=== PATIENT | male | born 1935 | race Caucasian/White ===

== ENCOUNTER 2018-10-08 12:18 | Emergency (ER) | payer OTHER ==
--- OUTSIDE RECORDS SUMMARY | 2018-10-08 12:21 | XMS REPORT | Clinical Summary ---
:1935 Author Organization [facility] Address [address] [place] [address] Care Team Providers Name Role Phone Torey Martins MD Primary Care Provider Allergies Active Allergy Reactions Severity Noted Date Comments Etodolac Rash Low 02/19/2016 Medications Medication Sig Dispensed Refills Start Date End Date Status carvedilol (COREG) Take 12.5 mg by 0 Active 12.5 MG tablet mouth 2 (two) times daily with breakfast and dinner. losartan-hydrochloroth Take 1 tablet by 0 Active iazide (HYZAAR) mouth daily. 100-12.5 mg per tablet atorvastatin (LIPITOR) Take 40 mg by 0 Active 40 MG tablet mouth daily. amLODIPine (NORVASC) 5 Take 5 mg by mouth 0 Active MG tablet daily. apixaban (ELIQUIS) 2.5 Take 2.5 mg by 0 Active mg Tab tablet mouth 2 (two) times daily. cholecalciferol, Take 1,000 Units 0 Active vitamin D3, 1,000 unit by mouth as needed capsule Pt takes irreg jimbo . Active Problems Problem Noted Date AAA (abdominal aortic aneurysm) 03/11/2016 Abdominal aortic aneurysm 02/27/2016 Obesity (BMI 30-39.9) 02/27/2016 Carotid disease, bilateral 02/27/2016 HTN (hypertension) 02/27/2016 Atrial fibrillation 02/27/2016 Chronic renal failure 02/27/2016 Family History Medical History Relation Name Comments Cancer Brother bladder cancer Heart disease Father Diabetes Mother Heart disease Mother Relation Name Status Comments Brother Father Mother Social History Tobacco Use Types Packs/Day Years Used Date Former Smoker 1 30 Quit: 02/18/1986 Smokeless Tobacco: Former User Alcohol Use Drinks/Week oz/Week Comments Yes moderate Sex Assigned at Date Recorded Not on file Job Start Date Occupation Industry Not on file Not on file Not on file Travel History Travel Start Travel End No recent travel history available. Last Filed Vital Signs Not on file Plan of Treatment Health Maintenance Due Date Last Done Comments INFLUENZA VACCINE 07/05/2018 Implants Implanted Type Area Cloud Security Architect Device Shelf Expiration Model / Identifier Date Serial / Lot Customseal Kit [employer] 11/15/2016 [id number] / Implanted: Qty: 1 on 03/11/2016 / [id number] [employer] / [id number] [employer] 09/13/2018 [id number] / Implanted: Qty: 1 on 03/11/2016 / [id number] [employer] / [id number] [employer] 02/01/2018 [id number] / Implanted: Qty: 1 on 03/11/2016 / [id number] [employer] / [id number] [employer] 12/11/2018 [id number] / Implanted: Qty: 1 on 03/11/2016 / [id number] Results Not on fileafter 10/07/2017 Insurance Payer Benefit Plan / Group Subscriber ID Type Phone Address [employer] - MEDICARE UNITED MEDICARE HMO xxxxxxxxx [facility] Advance Directives For more information, please contact:[address] [phone] Code Status Date Activated Date Inactivated Comments Full Code 03/11/2016 10:15 AM 03/12/2016 1:08 PM This code status was determined by: Patient
[2018-10-08 14:28] LABS: Absolute Lymphocytes (CBC) 1.3 K/uL (0.7-4.9); Absolute Monocytes 0.8 K/uL (0.1-1.3); Absolute Neutrophil 6.3 K/uL (1.8-8.0); Basophils % 0.8 % (0-1.3); Eosinophils % 1.5 % (0-4.4); Hematocrit 47.5 % (39.6-49.0); Lymphocytes % 15.6 % (15.3-44.8); Monocytes % 9.5 % (3.3-12.3); Protime INR 1.24; RBC Red Blood Cell Count 5.06 M/uL (4.33-5.43)
[2018-10-08 14:38] LABS: ALT/SGPT 37 U/L (12-78); AST/SGOT 25 U/L (15-37); Albumin 3.9 g/dL (3.4-5.0); Alkaline Phosphatase 128 U/L (45-117); BUN Blood Urea Nitrogen 30 mg/dL (7-18); Bicarbonate 30 mmol/L (21-32); Bilirubin Direct 0.5 mg/dL (0-0.2); Bilirubin Total 2.6 mg/dL (0.2-1.0); Glucose Level 94 mg/dL (74-106); Magnesium 2.3 mg/dL (1.8-2.4); NT PRO-BNP 1025 pg/mL (<450); Potassium 4.1 mmol/L (3.5-5.1); Protein, Total 7.8 g/dL (6.4-8.2); Sodium Level 139 mmol/L (136-145); Troponin (Emerg Dept Use Only) < 0.02 ng/mL (0.0-0.045)
[2018-10-08 14:43] LABS: Urine Blood TRACE (NEG); Urine Glucose NEGATIVE (NEG); Urine Protein NEGATIVE (NEG)
--- NOTE | 2018-10-08 14:44 | RAD REPORT ---
EXAM DESCRIPTION: Natasha Single View10/08/2018 2:32 pm CLINICAL HISTORY: Chest pain COMPARISON: 2017 FINDINGS: 2 centimeter opacity lies superior to the left hilum. Right lung appears clear of acute infiltrate. Heart is mildly enlarged. Aorta is tortuous/ectatic IMPRESSION: 2 centimeter left lung opacity may represent a nodule or infiltrate. CT chest recommende d
--- NOTE | 2018-10-08 15:19 | RAD REPORT ---
EXAM DESCRIPTION: CT - Head Brain Wo Cont - 10/08/2018 3:10 pm CLINICAL HISTORY: CONFUSED Drowsiness COMPARISON: No comparisons TECHNIQUE: All CT scans are performed using dose optimization technique as appropriate and may inclu de automated exposure control or mA/KV adjustment according to patient size. FINDINGS: No intracranial hemorrhage, hydrocephalus or extra-axial fluid collection.Mild generalized brain atrophy is present with mild periventricular and deep white matter chronic microvascular ische geoffrey changes.No areas of brain edema or evidence of midline shift. Mild mucoperiosteal thickening affects the right maxillary antrum inferiorly. The paranasal sinuses a nd mastoids are clear otherwise. The calvarium is intact. IMPRESSION: No acute intracranial abnormality.
[2018-10-08] MEDS ORDERED: NA CHLORIDE 0.9% 1,000 ML ONE (15:35)
--- NOTE | 2018-10-08 15:48 | RAD REPORT ---
EXAM DESCRIPTION: CT - Chest Angio - 10/08/2018 3:39 pm CLINICAL HISTORY: Chest pain. visual distrubance COMPARISON: Chest Single View dated 10/08/2018; Chest Single View dated 04/24/2017 TECHNIQUE: CT angiogram of the pulmonary arteries was performed with MIP. All CT scans are performed using dose optimization technique as appropriate and may include automated exposure control or mA/KV adjustment according to patient size. FINDINGS: No evidence of pulmonary thromboembolism. No acute aortic finding demonstrated. Aortic atherosclerosis. Diffuse COPD is noted. 4.7 x 3.4 cm mass is present in these posterior aspect superior segment left l ower lobe. The mass appears to abut the descending thoracic aorta and contacts the pleura. The mass i s likely neoplastic in origin. No significant pericardial or pleural fluid. No concerning bony finding. IMPRESSION: No evidence of pulmonary thromboembolism. 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
--- NOTE | 2018-10-08 16:42 | RAD REPORT ---
EXAM DESCRIPTION: MRI - Brain W/Wo Cont - 10/08/2018 4:15 pm CLINICAL HISTORY: blurry vision CVA, TIA, drowsiness COMPARISON: Head Brain Wo Cont dated 10/08/2018 TECHNIQUE: Multi-sequence, multiplanar MR imaging of the brain was performed with contrast. FINDINGS: No intracranial hemorrhage, hydrocephalus, or extra-axial fluid collection.Mild generalize d brain atrophy is present with mild periventricular and deep white matter chronic microvascular isch emic changes. No edema or shift of midline structures. No intracranial mass. DWI is negative for acut e CVA. The midline structures are normally formed. Mastoid air cells and paranasal sinuses are clear. Post-contrast images show no abnormal enhancement to suggest tumor or infection. IMPRESSION: No acute or concerning intracranial abnormalities. No pathologic post-contrast enhancement suspected.
--- NOTE | 2018-10-08 17:00 | RAD REPORT ---
EXAM DESCRIPTION: US - CP - 10/08/2018 4:53 pm CLINICAL HISTORY: blurry vision CVA symptomology. Syncope. Headache. COMPARISON: Brain W/Wo Cont dated 10/08/2018 TECHNIQUE: Real-time sonographic evaluation of both carotid systems was performed. Doppler interroga tion was performed with waveform tracing bilaterally. FINDINGS: Normal high resistance waveforms are noted in both external carotid arteries. The common c arotid arteries and internal carotid arteries show normal low resistance waveforms. No significant plaque formation is seen. Peak systolic and end diastolic velocity values and the ICA/ CCA ratios are in the non-hemodynamically significant range. Antegrade flow seen in both vertebral arteries. IMPRESSION: No significant atherosclerotic changes noted. No evidence of a hemodynamically significant stenosis.
--- NOTE | 2018-10-08 18:18 | EDPHYS ---
Physician Documentation [facility] Name: Miguel Hogan Age: 83 yrs Sex: Male : 1935 Arrival Date: 10/08/2018 Time: 12:21 Bed 24 Private MD: Ralph Martins C ED Physician Dago Garcia HPI: 10/08 18:58 This 83 yrs old Male presents to ER via Ambulatory with complaints of kdr Dizziness, Blurred Vision. Historical: - Allergies: 12:34 Etodolac; hj 12:34 telbivudine; hj - Home Meds: 12:34 carvedilol 12.5 mg oral tab 1 tab 2 times per day [Active]; Norvasc 5 mg Oral tab 1 tab hj once daily [Active]; losartan-hydrochlorothiazide 50-12.5 mg oral tab 1 tab once daily [Active]; Eliquis 2.5 mg oral tab 1 tab 2 times per day [Active]; - PMHx: 12:34 Hyperlipidemia; Hypertension; skin cancer; hj - PSHx: 12:34 Knee surgery; Hernia repair; Carotid surgery; skin cancer removal from left cheek; hj cataract surgery; AAA repair; - Immunization history:: Adult Immunizations up to date. - Social history:: Smoking status: Patient/guardian denies using tobacco, Patient/guardian denies using alcohol. - Ebola Screening: : Patient negative for fever greater than or equal to 101.5 degrees Fahrenheit, and additional compatible Ebola Virus Disease symptoms Patient denies exposure to infectious person Patient denies travel to an Ebola-affected area in the 21 days before illness onset. Vital Signs: 12:34 BP 156 / 78; Pulse 69; Resp 18; Temp 98.0(O); Pulse Ox 99% on R/A; Weight 113.4 kg; hj Height 6 ft. 2 in. (187.96 cm); Pain 0/10; 13:35 BP 149 / 80; Pulse 66; Resp 16; Pulse Ox 99% on R/A; tw2 14:38 BP 147 / 87; Pulse 75; Resp 16; Pulse Ox 100% on R/A; tw2 15:00 BP 140 / 77; Pulse 61; Resp 17; Pulse Ox 99% on R/A; tw2 16:30 BP 167 / 80; Pulse 61; Resp 17; Pulse Ox 98% on R/A; tw2 17:21 BP 167 / 90; Pulse 70; Resp 16; Pulse Ox 100% on R/A; tw2 18:09 BP 154 / 97; Pulse 71; Resp 18; Pulse Ox 99% on R/A; tw2 12:34 Body Mass Index 32.10 (113.40 kg, 187.96 cm) hj MDM: 18:17 Patient medically screened. kdr 10/08 13:56 Order name: Basic Metabolic Panel; Complete Time: 14:56 iw 10/08 13:56 Order name: CBC with Diff; Complete Time: 14:56 iw 10/08 13:56 Order name: LFT's; Complete Time: 14:56 iw 10/08 13:56 Order name: Magnesium; Complete Time: 14:56 iw 10/08 13:56 Order name: NT PRO-BNP; Complete Time: 14:56 iw 10/08 13:56 Order name: PT-INR; Complete Time: 14:56 iw 10/08 13:56 Order name: Troponin (emerg Dept Use Only); Complete Time: 14:56 iw 10/08 13:56 Order name: XRAY Chest (1 view); Complete Time: 14:56 iw 10/08 14:29 Order name: Urine Dipstick--Ancillary (enter results); Complete Time: 14:56 ag 10/08 14:59 Order name: CT Head Brain wo Cont; Complete Time: 15:21 kdr 10/08 15:11 Order name: CT Chest Angio; Complete Time: 16:24 kdr 10/08 15:11 Order name: Carotid Artery Bilateral US; Complete Time: 17:18 kdr 10/08 16:04 Order name: Brain W/Wo Cont; Complete Time: 17:18 EDMS 10/08 12:36 Order name: EKG; Complete Time: 12:37 hj 10/08 13:56 Order name: Cardiac monitoring; Complete Time: 14:12 iw 10/08 13:56 Order name: IV Saline Lock; Complete Time: 14:12 iw 10/08 13:56 Order name: Labs collected and sent; Complete Time: 14:13 iw 10/08 13:56 Order name: O2 Per Protocol; Complete Time: 14:13 iw 10/08 13:56 Order name: O2 Sat Monitoring; Complete Time: 14:13 iw Administered Medications: 16:59 Drug: NS 0.9% 250 ml Route: IV; Rate: bolus; Site: left forearm; tw2 17:29 Follow up: Rate change bolus; rate change to bolus at this time to complete 1L NS prior tw2 to discharge per Dr. Garcia 18:32 Follow up: Response: No adverse reaction; IV Status: Completed infusion; IV Intake: tw2 1000ml Disposition: 10/08/18 18:17 Discharged to Home. Impression: Other visual disturbances, Other subjective visual disturbances, Subjective visual disturbances, Unspecified subjective visual disturbances. - Condition is Stable. - Discharge Instructions: Blurred Vision, Adult, Visual Disturbances. - Medication Reconciliation Form, Thank You Letter form. - Follow up: Ralph Martins MD; When: 9:00 AM on Thursday; Reason: If symptoms return, Further diagnostic work-up, Recheck today's complaints, Continuance of care, Re-evaluation by your physician. - Problem is new. - Symptoms are resolved. Signatures: Dispatcher [employer] [facility] Dago Garcia MD MD kdr Staci Perez RN RN Olvin Cloud, MEETA RN hj Laawnda Sequeira, MEETA RN tw2 Corrections: (The following items were deleted from the chart) 16:04 15:12 Brain With Cont+MRI.RAD.BRZ ordered. [facility] 18:33 18:17 10/08/2018 18:17 Discharged to Home. Impression: Other visual disturbances; Other tw2 subjective visual disturbances; Subjective visual disturbances; Unspecified subjective visual disturbances. Condition is Stable. Forms are Medication Reconciliation Form, Thank You Letter, Antibiotic Education, Prescription Opioid Use. Follow up: Ralph Martins; When: 9:00 AM on Thursday; Reason: If symptoms return, Further diagnostic work-up, Recheck today's complaints, Continuance of care, Re-evaluation by your physician. Problem is new. Symptoms are resolved. kdr
--- NOTE | 2018-10-08 18:18 | ER ---
Nurse's Notes [facility] Name: Miguel Hogan Age: 83 yrs Sex: Male : 1935 Arrival Date: 10/08/2018 Time: 12:21 Bed 24 Private MD: Ralph Martins C Diagnosis: Other visual disturbances;Other subjective visual disturbances;Subjective visual disturbances;Unspecified subjective visual disturbances Presentation: 10/08 12:30 Presenting complaint: Patient states: last 2-3 days, jeannie been dizzy and had blurry hj vision and able to lay down and margarita passes; denies N/V; denies falling; hx of a fib; denies chest pain; denies numbness or tingling;. Transition of care: patient was not received from another setting of care. Onset of symptoms was October 08, 2018. Risk Assessment: Do you want to hurt yourself or someone else? Patient reports no desire to harm self or others. Initial Sepsis Screen: Does the patient meet any 2 criteria? No. Patient's initial sepsis screen is negative. Does the patient have a suspected source of infection? No. Patient's initial sepsis screen is negative. Care prior to arrival: None. 12:30 Method Of Arrival: Ambulatory 12:30 Acuity: ROSE 3 hj Triage Assessment: 12:34 General: Appears in no apparent distress. uncomfortable, Behavior is calm, cooperative, hj appropriate for age. Pain: Denies pain. Historical: - Allergies: 12:34 Etodolac; hj 12:34 telbivudine; hj - Home Meds: 12:34 carvedilol 12.5 mg oral tab 1 tab 2 times per day [Active]; Norvasc 5 mg Oral tab 1 tab hj once daily [Active]; losartan-hydrochlorothiazide 50-12.5 mg oral tab 1 tab once daily [Active]; Eliquis 2.5 mg oral tab 1 tab 2 times per day [Active]; - PMHx: 12:34 Hyperlipidemia; Hypertension; skin cancer; hj - PSHx: 12:34 Knee surgery; Hernia repair; Carotid surgery; skin cancer removal from left cheek; hj cataract surgery; AAA repair; - Immunization history:: Adult Immunizations up to date. - Social history:: Smoking status: Patient/guardian denies using tobacco, Patient/guardian denies using alcohol. - Ebola Screening: : Patient negative for fever greater than or equal to 101.5 degrees Fahrenheit, and additional compatible Ebola Virus Disease symptoms Patient denies exposure to infectious person Patient denies travel to an Ebola-affected area in the 21 days before illness onset. Screenin:34 Abuse screen: Denies threats or abuse. Denies injuries from another. Nutritional hj screening: No deficits noted. Tuberculosis screening: No symptoms or risk factors identified. Fall Risk None identified. Assessment: 13:35 Reassessment: pt states he had carotid surgery to "clear out 98% blockage and i just tw2 want to make sure everything is ok, i just feel dizzy and like i have to strain to focus". General: Appears in no apparent distress. Behavior is calm, cooperative, appropriate for age. Pain: Denies pain. Neuro: Level of Consciousness is awake, alert, obeys commands, Oriented to person, place, time, situation. Neuro: Reports dizziness, Denies headache. Cardiovascular: Heart tones S1 S2 Capillary refill < 3 seconds Patient's skin is warm and dry. Respiratory: Airway is patent Respiratory effort is even, unlabored, Respiratory pattern is regular, symmetrical, Breath sounds are clear. GI: Abdomen is flat, round Bowel sounds present X 4 quads. Reports AAA that has a stent and it has been reinforced with a balloon. : No signs and/or symptoms were reported regarding the genitourinary system. EENT: No signs and/or symptoms were reported regarding the EENT system. Derm: No signs and/or symptoms reported regarding the dermatologic system. Musculoskeletal: Circulation, motion, and sensation intact. Range of motion: intact in all extremities. 14:38 Reassessment: Patient appears in no apparent distress at this time. No changes from tw2 previously documented assessment. Patient and/or family updated on plan of care and expected duration. Pain level reassessed. Patient is alert, oriented x 3, equal unlabored respirations, skin warm/dry/pink. provider at bedside at this time. 15:40 Reassessment: pt is in imaging at this time, not available for vs. tw2 16:30 Reassessment: Patient appears in no apparent distress at this time. No changes from tw2 previously documented assessment. Patient and/or family updated on plan of care and expected duration. Pain level reassessed. Patient is alert, oriented x 3, equal unlabored respirations, skin warm/dry/pink. 17:22 Reassessment: Patient appears in no apparent distress at this time. No changes from tw2 previously documented assessment. Patient and/or family updated on plan of care and expected duration. Pain level reassessed. Patient is alert, oriented x 3, equal unlabored respirations, skin warm/dry/pink. 18:09 Reassessment: Patient appears in no apparent distress at this time. No changes from tw2 previously documented assessment. Patient and/or family updated on plan of care and expected duration. Pain level reassessed. Patient is alert, oriented x 3, equal unlabored respirations, skin warm/dry/pink. 18:32 Reassessment: Patient appears in no apparent distress at this time. No changes from tw2 previously documented assessment. Patient and/or family updated on plan of care and expected duration. Pain level reassessed. Patient is alert, oriented x 3, equal unlabored respirations, skin warm/dry/pink. 18:33 Reassessment: Patient appears in no apparent distress at this time. No changes from tw2 previously documented assessment. Patient and/or family updated on plan of care and expected duration. Pain level reassessed. Patient is alert, oriented x 3, equal unlabored respirations, skin warm/dry/pink. Vital Signs: 12:34 BP 156 / 78; Pulse 69; Resp 18; Temp 98.0(O); Pulse Ox 99% on R/A; Weight 113.4 kg; hj Height 6 ft. 2 in. (187.96 cm); Pain 0/10; 13:35 BP 149 / 80; Pulse 66; Resp 16; Pulse Ox 99% on R/A; tw2 14:38 BP 147 / 87; Pulse 75; Resp 16; Pulse Ox 100% on R/A; tw2 15:00 BP 140 / 77; Pulse 61; Resp 17; Pulse Ox 99% on R/A; tw2 16:30 BP 167 / 80; Pulse 61; Resp 17; Pulse Ox 98% on R/A; tw2 17:21 BP 167 / 90; Pulse 70; Resp 16; Pulse Ox 100% on R/A; tw2 18:09 BP 154 / 97; Pulse 71; Resp 18; Pulse Ox 99% on R/A; tw2 12:34 Body Mass Index 32.10 (113.40 kg, 187.96 cm) hj ED Course: 12:21 Patient arrived in ED. ag5 12:21 Ralph Martins MD is Private Physician. ag5 12:32 Triage completed. hj 12:34 Arm band placed on right wrist. hj 12:34 Patient has correct armband on for positive identification. Placed in gown. Bed in low hj position. Call light in reach. Side rails up X 1. 13:18 Lawanda Sequeira RN is Primary Nurse. tw2 13:36 EKG done, by laboratory technology teacher. reviewed by Sae Shine NP. at1 14:12 Inserted saline lock: 20 gauge in left forearm, using aseptic technique. Blood tw2 collected. 14:26 X-ray completed. Portable x-ray completed in exam room. Patient tolerated procedure sw well. 14:32 XRAY Chest (1 view) In Process Unspecified. EDMS 14:34 Dago Garcia MD is Attending Physician. kdr 15:10 CT Head Brain wo Cont In Process Unspecified. EDMS 15:39 CT completed. Patient tolerated procedure well. Patient moved to CT via stretcher. sj Patient moved back from CT. 15:39 Patient moved to MRI. sj 15:39 CT Chest Angio In Process Unspecified. EDMS 16:16 MRI completed. Patient tolerated well. Patient taken to ultrasound. via stretcher. em2 16:16 Brain W/Wo Cont In Process Unspecified. EDMS 16:53 Carotid Artery Bilateral US In Process Unspecified. EDMS 18:09 Awaiting: completion of IV fluids prior to discharge. tw2 18:16 Ralph Martins MD is Referral Physician. kdr 18:32 No provider procedures requiring assistance completed. IV discontinued, intact, tw2 bleeding controlled, No redness/swelling at site. Pressure dressing applied. Administered Medications: 16:59 Drug: NS 0.9% 250 ml Route: IV; Rate: bolus; Site: left forearm; tw2 17:29 Follow up: Rate change bolus; rate change to bolus at this time to complete 1L NS prior tw2 to discharge per Dr. Garcia 18:32 Follow up: Response: No adverse reaction; IV Status: Completed infusion; IV Intake: tw2 1000ml Intake: 18:32 IV: 1000ml; Total: 1000ml. tw2 Outcome: 18:17 Discharge ordered by . kdr 18:33 Discharged to home ambulatory, with family. tw2 18:33 Condition: stable 18:33 Discharge instructions given to patient, family, Instructed on discharge instructions, follow up and referral plans. Demonstrated understanding of instructions, follow-up care. 18:33 Patient left the ED. tw2 Signatures: Dispatcher [employer] EDMS Dago Garcia MD MD kdr Jones, Angelica Amor, Dustin em2 Saige Maldonado, drag car racer EKG Tat1 Celsa Hankins Henry, RN RN Lawanda Tolentino RN RN tw2 Marcell Lagunas ag5 Corrections: (The following items were deleted from the chart) 12:36 12:34 Pulse 69bpm; Resp 18bpm; Pulse Ox 99% RA; Temp 98.0F Oral; 113.4 kg; Height 6 ft. hj 2 in.; BMI: 32.1; Pain 0/10; hj 12:37 12:30 Presenting complaint: Patient states: last 2-3 days, jeannie been dizzy and had hj blurry vision and able to lay down and margarita passes; denies N/V; denies falling; hx of a fib; denies chest pain; hj 12:37 12:34 Pulse 69bpm; Resp 18bpm; Pulse Ox 99% RA; Temp 98.0F Oral; 113.4 kg; Height 6 ft. hj 2 in.; BMI: 32.1; Pain 0/10; hj 13:38 13:24 Reassessment: pt states he was supposed to have a doppler on his carotic but he tw2 has been having a lot of stress and things to deal with and just hasnt gone tw2
[2018-10-08 19:26] VITALS: TEMP 98
[2018-10-08 19:38] VITALS: BP 154/97; O2SAT 99
--- NOTE | 2018-10-09 13:57 | EKG ---
Test Date: 2018-10-08 Test Time: 13:26:12 [employer] Building Materials Designer: MEL MEASUREMENT RESULTS: Intervals: Rate: 74 AR: QRSD: 146 QT: 432 QTc: 479 Lohman: P: AR: QRS: -70 T: 66 INTERPRETIVE STATEMENTS: Atrial fibrillation with a competing junctional pacemaker Right bundle branch block Left anterior fascicular block Bifascicular block Septal infarct, age undetermined Abnormal ECG Compared to ECG 04/24/2017 15:22:10 Myocardial infarct finding now present Ventricular premature complex(es) no longer present Bifascicular block still present Electronically Signed On 10-09-18 13:54:07 PROVINCE ARCHIVIST by Baldemar Kohli
== END 2018-10-08 18:33 | disposition home or self-care (01) ==
LOC: ER 12:18
DX: H53.19 Other subjective visual disturbances (principal); H53.9 Unspecified visual disturbance; I10 Essential (primary) hypertension; E78.5 Hyperlipidemia, unspecified; Z88.8 Allergy status to other drugs, medicaments and biological substances; Z85.828 Personal history of other malignant neoplasm of skin
CPT/HCPCS: 36415; 70450; 70553; 71045; 71275; 80048; 80076; 81003; 83735; 83880; 84484; 85025; 85610; 93005; 93880; 96360; 96361; 99284; A9577; J7030; Q9967; 96365; 96366

== ENCOUNTER 2021-12-30 20:02 | Emergency (ER) | payer OTHER ==
--- OUTSIDE RECORDS SUMMARY | 2021-12-30 20:09 | XMS REPORT | Clinical Summary ---
:1935 Author Organization [facility] Address [address] [place] [address] Care Team Providers Name Role Phone Leonard Giraldo MD Primary Care Provider Torey Martins MD Unavailable Esdras Martins MD Unavailable MD Enzo Unavailable MD Emil Unavailable Allergies Active Allergy Reactions Severity Noted Date Comments Etodolac Rash Low 06/16/2016 Medications Medication Sig Dispensed Refills Start End Status Date Date atorvastatin (LIPITOR) Take 40 mg by 0 Active 40 mg tablet mouth at bedtime. apixaban (ELIQUIS) 2.5 Take 2.5 mg 0 Active mg tablet by mouth twice daily. finasteride (PROSCAR) Take 5 mg by 0 Active 5 mg tablet mouth daily. fluticasone propionate Inhale 2 0 Active (FLONASE) 50 mcg/spray sprays into nasal spray each nostril daily. Trelegy Ellipta 1 PUFF BY 0 Acti ve 100-62.5-25 mcg dsdv MOUTH DAILY, 0 RINSE MOUTH WITH WATER AFTER USE ALPRAZolam (XANAX) 1 Take 1 tablet 0 Active mg tablet by mouth 1 nightly as needed for sleep. furosemide (LASIX) 20 Take 1 tablet 0 Active mg tablet by mouth 1 every morning. mupirocin (BACTROBAN) Apply 22 g 1 Active 2% topically to 1 ointmentIndications: affected Basal cell carcinoma - area(s) twice primary daily. losartan-hydrochloroth Take 1 tablet 0 Active iazide (HYZAAR) 100-25 by mouth mg per daily. tabletIndications: hypertension carvedilol (COREG) 12.5 mg twice 0 Active 12.5 mg tablet daily. 1 mupirocin (BACTROBAN) Apply 22 g 1 Active 2% topically to 1 ointmentIndications: affected Squamous cell area(s) twice carcinoma of scalp daily. methylPREDNISolone Take as 21 tablet 0 A ctive (Medrol, Bob,) 4 mg directed 2 tabletIndications: (Directions Squamous cell on blister carcinoma, NOS of pack) lower lobe, lung <Left> benzonatate (TESSALON) Take 1 0 Active 100 mg capsule capsule by 2 mouth 4 (four) times a day as needed for cough. losartan-hydrochloroth Take 1 tablet 0 04/05 Discontinued iazide (HYZAAR) by mouth 021 (Not 100-12.5 mg per tablet daily. Applicable) carvedilol (COREG) 25 Take 1 tablet 0 09/04 5 Discontinued mg tablet by mouth 0 021 (Not twice daily. Applica ble) losartan-hydrochloroth Take 1 tablet 0 Discontinued iazide (HYZAAR) 100-25 by mouth 021 (Stop Taking at mg per tablet daily. Discha rge) azithromycin TAKE 2 0 Discont inued (ZITHROMAX) 250 mg TABLETS BY 1 021 (Not tablet MOUTH TODAY, Applica ble) THEN TAKE 1 TABLET DAILY FOR 4 DAYS azithromycin 0 Discont inued (ZITHROMAX) 250 mg 1 021 ( Not tablet Applicable ) cephalexin (KEFLEX) Take 1 20 capsule 1 500 mg capsule (500 1 022 capsuleIndications: mg) by mouth Squamous cell twice daily carcinoma of scalp for 10 days. Active Problems Problem Noted Date Pleural effusion 12/23/2021 Last Assessment & Plan: Right pleural effusion has resolved and it was most likely caused by fluid overload. No need for intervention at this time. Chronic obstructive pulmonary disease 03/02/2021 Last Assessment & Plan: No clinical evidence of exacerbation. Co ntinue with Trelegy Ellipta one puff daily. Diarrhea 03/01/2021 Fatigue 03/01/2021 Disorder of fluid AND/OR electrolyte 03/01/2021 Hyposmolality and/or hyponatremia 03/01/2021 Squamous cell carcinoma 12/15/2019 Hypertension 12/15/2019 Disorder of carotid artery 11/09/2019 Abdominal aortic aneurysm 11/09/2019 Last Assessment & Plan: Patient has history of patent endograft with aneurysm measuring 6.3 cm with no endoleak as per most recent report 11/02/2018. 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 Recent PET-CT dated suggest en largement of the left lung lesion. Permanent atrial fibrillation 11/10/2018 Overview: 07/05 Regulatory Import Last Assessment & Plan: Patient has received local cardiology ev aluation for history of atrial fibrillation, abdominal aortic aneurysm. Dr. Benson did not feel the patient needed additional cardiac testing Multiple renal cysts 10/27/2018 Last Assessment & Plan: The patient has been on surveillance sin ce 2014 for a 1.4 cm right renal mass. He is under the care of his local physician. Encounters Date Type Specialty Care Team Description 12/30/2021 Nurse Triage Sally Smith NP 12/30/2021 Telephone Sally Smith asking to spe ak to Monica, EMBEDDED SOFTWARE TEST ENGINEER provider; Short ness of Breath 12/24/2021 Orders Only Thoracic Medicine Yarelis Morataya ANP carcinoma of lower lobe of left bonnie ng (Primary Dx) 12/23/2021 Office Visit Pulmonology Granados, Pleural effusio n (Primary Dx); MD Jeffry Squamous cell c arcinoma, NOS of lower lobe, lung <Left>; Chronic obstruc tive pulmonary disease, not otherwise specified 12/23/2021 Hospital Encounter Cardiology Yarelis Morataya ANP carcinoma, NO S of lower lobe, dmitri g <Left> 12/23/2021 Hospital Encounter Lab Mackenney, Pleural e ffusion DOTTIE Aguilar 12/23/2021 Ancillary Procedure Radiology Toddy, Pleural effusion DOTTIE Aguilar 12/23/2021 Travel 12/11/2021 Telephone Thoracic Medicine Nicolette Morataya ANP 12/11/2021 Orders Only Pulmonology Mackenney, Pleural effusio n DOTTIE Aguilar (Primary Dx) 12/10/2021 Office Visit Thoracic Medicine Yarelis Gay MD carcinoma, NOS of lower lobe, dmitri g <Left> 12/10/2021 Orders Only Radiology Rosita Milian MD 12/10/2021 Travel 12/09/2021 Ancillary Procedure Radiology Yarelis Gay MD carcinoma, NOS of lower lobe, dmitri g <Left> 12/09/2021 Travel 11/19/2021 Orders Only Thoracic Medicine Yarelis Guzman NP carcinoma, NOS of lower lobe, dmitri g <Left> (Primary Dx) 11/14/2021 Infusion Infusion Services Yarelis Morataya ANP carcinoma of lower lobe of left bonnie ng (Primary Dx) 11/14/2021 Travel 11/14/2021 Orders Only Thoracic Medicine Shayy Levin MD 11/14/2021 Orders Only Thoracic Medicine Nicolette Morataya ANP 11/13/2021 Telemedicine Thoracic Medicine Yarelis Gay MD carcinoma, NOS of lower lobe, dmitri g <Left> 11/13/2021 Orders Only Thoracic Medicine Vijaya Maxwell, Squamous cell PharmD 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 (Primary Dx) 11/13/2021 Orders Only Thoracic Medicine Yarelis Morataya ANP carcinoma of lower lobe of left bonnie ng (Primary Dx) 11/13/2021 Travel 10/17/2021 Infusion Infusion Services Yarelis Gay MD 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 (Primary Dx) 10/17/2021 Telemedicine Thoracic Medicine Yarelis Gay MD carcinoma, NOS of Rafia, lower lobe, dmitri g NicoletteHEMA farmer <Left> 10/17/2021 Travel 10/17/2021 Orders Only Thoracic Medicine Yarelis Morataya ANP carcinoma of lower lobe of left bonnie ng (Primary Dx) 10/16/2021 Orders Only Thoracic Medicine Salazar Gay MD 10/15/2021 Hospital Encounter Lab Salazar Gay MD 10/15/2021 Hospital Encounter Radiology Rafia, 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; HEMA Will Squamous cell carcinoma, NOS of lower lobe, lung <Left> 10/15/2021 Travel 09/30/2021 Office Visit Rakesh Stein Squamous cell c arcinoma of forehead (Primary Dx); MD Claudia Squamous cell c arcinoma of scalp; Basal cell carc inoma of anterior chest; Basal cell carc inoma of back; Squamous cell c arcinoma of skin of scalp and neck 09/30/2021 Travel 09/24/2021 Telephone Radha Foote, MEETA 09/23/2021 Orders Only Thoracic Medicine Yarelis Morataya ANP carcinoma of lower lobe of left bonnie ng (Primary Dx) 09/19/2021 Infusion Infusion Services Yarelis Gay MD 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 (Primary Dx) 09/19/2021 Travel 09/18/2021 Office Visit Thoracic Yarelis Robles MD carcinoma, NOS of lower lobe, dmitri g <Left> (Primary Dx) 09/18/2021 Hospital Encounter Lab Salazar Gay MD 09/18/2021 Travel 09/01/2021 Orders Only Yarelis Morales cell c arcinoma of skin of scalp and neck (Primary Dx); MD Claudia Squamous cell c arcinoma of forehead 08/26/2021 Telephone Dermatology Elvie Borja MD 08/22/2021 Infusion Infusion Services Squamous c ell 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 (Primary Dx) 08/22/2021 Travel 08/21/2021 Office Visit Thoracic Medicine Yarelis Gay MD carcinoma, NOS of lower lobe, dmitri g <Left> (Primary Dx) 08/21/2021 Office Visit Dermatology Enzo, Neoplasm of un certain behavior of skin (Primary Dx); MD Leonard Multiple actinic keratoses; Elza, Seborrheic allan tosis; MD Nahed Squamous cell c arcinoma, NOS of lower lobe, lung <Left> 08/21/2021 Orders Only Thoracic Medicine Alejandro Dillard, PharmD 08/21/2021 Orders Only Thoracic Medicine Nicolette Morataya, HEMA 08/21/2021 Orders Only Thoracic Medicine Annalise Paris, PharmD 08/21/2021 Travel 08/20/2021 Ancillary Procedure Radiology Squamous cell carcinoma, NOS of lower lobe, dmitri g <Left> 08/20/2021 Travel 07/25/2021 Infusion Infusion Services Squamous c ell carcinoma, NOS of lower lobe, lung <Left> (Primary Dx); Squamous cell c arcinoma of lower lobe of left lung 07/25/2021 Telephone Infusion Services Yun Steele, Follow-up (chemo RN call back) 07/25/2021 Travel 07/24/2021 Office Visit Thoracic Medicine aYrelis Gay MD carcinoma, NOS of lower lobe, dmitri g <Left> (Primary Dx) 07/24/2021 Hospital Encounter Lab Squamous cell carcinoma, NOS of lower lobe, dmitri g <Left> 07/24/2021 Orders Only Thoracic Medicine Vijaya Maxwell, PharmD 07/24/2021 Travel 06/26/2021 Infusion Infusion Services Yarelis Gay MD 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 (Primary Dx) 06/26/2021 Office Visit Thoracic Medicine Yarelis Gay MD 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 (Primary Dx) 06/26/2021 Travel 06/26/2021 Orders Only Thoracic Medicine Salazar Gay MD 06/25/2021 Ancillary Procedure Radiology Yarelis Morataya, HEMA carcinoma of lower lobe of left bonnie ng 06/25/2021 Travel 05/29/2021 Infusion Infusion Services Yarelis Gay MD 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 (Primary Dx) 05/29/2021 Travel 05/21/2021 Office Visit Thoracic Medicine Yarelis Morataya ANP carcinoma of lower lobe of left bonnie ng 05/21/2021 Hospital Encounter Lab Yarelis Gay MD 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 05/21/2021 Orders Only Thoracic Medicine Meme Carter MD 05/21/2021 Orders Only Head and Neck Vijaya Maxwell, Squamous cell Medical Oncology PharmD carcinoma o f lower lobe of left bonnie ng (Primary Dx) 05/21/2021 Travel 05/01/2021 Infusion Infusion Services Yarelis Gay MD 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 (Primary Dx) 05/01/2021 Travel 04/29/2021 Telephone Radha Foote, MEETA 04/24/2021 Office Visit Thoracic Medicine Yarelis Gay MD 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 (Primary Dx) 04/24/2021 Orders Only Thoracic Medicine Nicolette Morataya ANP 04/24/2021 Orders Only Thoracic Medicine Alejandro Dillard, PharmD 04/24/2021 Travel 04/23/2021 Ancillary Procedure Radiology Yarelis Morataya, HEMA carcinoma of lower lobe of left bonnie ng 04/23/2021 Travel 04/22/2021 Orders Only Thoracic Medicine Yarelis Morataya ANP carcinoma of lower lobe of left bonnie ng (Primary Dx) 04/03/2021 Infusion Infusion Services Yarelis Gay MD 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 (Primary Dx) 04/03/2021 Travel 03/27/2021 Office Visit Thoracic Medicine Yarelis Gay MD 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 (Primary Dx) 03/27/2021 Hospital Encounter Lab Yarelis Gay Salazar Cisse MD 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 03/27/2021 Travel 03/20/2021 Office Visit Rakesh Stein, Actinic keratos is (Primary Dx); MD Claudia Basal cell carc inoma - primary; Squamous cell c arcinoma of skin of neck; Squamous cell c arcinoma of forehead; Squamous cell c arcinoma of skin of cheek 03/20/2021 Travel 03/18/2021 Telephone Rakesh Francis, Pre-Op Soraya Rosas RN 03/08/2021 Orders Only Rakesh Stein, Squamous cell c arcinoma of skin of neck (Primary Dx); MD Claudia Squamous cell c arcinoma of forehead; Squamous cell c arcinoma of skin of cheek 03/07/2021 Telephone Dermatology Milagro Combs MD 03/06/2021 Infusion Infusion Services Yarelis Gay c nader Cisse MD 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 (Primary Dx) 03/06/2021 Office Visit Thoracic Medicine Yarelis Gay MD 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 (Primary Dx) 03/06/2021 Consult Dermatology Deidra, Neoplasm of unc ertain behavior of skin (Primary Dx); Salazar Cisse MD Multiple actinic keratoses; Heberton, Squamous cell c arcinoma of lower lobe of left lung MD Nahed 03/06/2021 Ancillary Procedure Radiology Yarelis Gay MD 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 03/06/2021 Hospital Encounter Lab Yarelis Gay MD 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 03/06/2021 Orders Only Thoracic Medicine Vijaya Maxwell, PharmD 03/06/2021 Travel 03/02/2021 Travel 03/01/2021 - Hospital Encounter GIM/Phase 1 VuWade B, Hyposmola lity and/or hyponatremia (Primary Dx); 03/03/2021 Diarrhea; Noe James MD Weakness; Adama Steen, 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; Hypertension 03/01/2021 Travel 03/01/2021 Telephone Thoracic Medicine Angelica Rosas, RN 03/01/2021 Telephone Thoracic Medicine Ronald Rosas (jessica Dewitt, nuclear equipment research engineer) 02/06/2021 Infusion Infusion Services Yarelis Morataya ANP carcinoma of lower lobe of left bonnie ng (Primary Dx) 02/06/2021 Office Visit Thoracic Medicine Yarelis Gay MD 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 (Primary Dx) 02/06/2021 Hospital Encounter Lab Yarelis Morataya ANP carcinoma of lower lobe of left bonnie ng 02/06/2021 Orders Only Thoracic Medicine Nicolette Morataya ANP 02/06/2021 Orders Only Thoracic Medicine Vijaya Maxwell Squamous cell PharmD 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 (Primary Dx) 02/06/2021 Travel 01/14/2021 Hospital Encounter Tay Lowe MD Waxman, Elizabeth, ANP 01/09/2021 Infusion Infusion Services Yarelis Gay MD 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 (Primary Dx) 01/09/2021 Office Visit Thoracic Medicine Yarelis Morataya ANP carcinoma of lower lobe of left bonnie ng (Primary Dx) 01/09/2021 Hospital Encounter Lab Yarelis Gay MD 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 01/09/2021 Orders Only Thoracic Medicine Jose Enrique Wilburn MD 01/09/2021 Orders Only Thoracic Medicine Nicolette Morataya ANP 01/09/2021 Travel 01/08/2021 Orders Only Thoracic Medicine Nicolette Morataya ANP 01/07/2021 Hospital Encounter Tay Lowe MD 01/04/2021 Orders Only Proton Therapy Yara Hogan Squamous olga l T, EMBEDDED SOFTWARE TEST ENGINEER 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 (Primary Dx) 01/04/2021 Orders Only Thoracic Medicine Annalise Paris, carcinoma of lo wer PharmD lobe of left bonnie ng (Primary Dx) 01/04/2021 Orders Only Thoracic Medicine Curtis Singh RPH 01/04/2021 Orders Only Thoracic Medicine Yarelis Gay MD 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 (Primary Dx) 01/01/2021 Hospital Encounter Proton Therapy Xiomara Pyle s cell MD Katty carcinoma of l ower lobe of left bonnie ng 01/01/2021 Travel after 12/30/2020 Immunizations Name Administration Dates Next Due Influenza Whole 06/12/2021 Influenza, Quadrivalent 08/13/2019 Influenza, Unspecified 08/31/2018 Moderna SARS-CoV-2 Booster 11/11/2021 Vaccination Moderna SARS-CoV-2 Vaccination 12/01/2021, 06/20/2021, 11/15, 10/18/2020 Tdap 10/15/2019 Surgical History Surgery Date Site/Laterality Comments TOTAL KNEE ARTHROPLASTY Bilateral THROMBOENDARTERECTOMY W/PATCH Ca rotid GRAFT; CAROTID, VERT, SUBCLAV, NECK INCISION REPAIR OF REDUCIBLE INGUINAL Bilateral HERNIA SKIN CANCER EXCISION MOHS excisi on for BCC from face CATARACT EXTRACTION, BILATERAL AR [facility] EBUS GUIDED SAMPL 3/> 11/08/2018 N/A Procedure: BRONCHOSCOPY NODE STATION/STRUX WITH EBUS 3 O R MORE NODES; Surgeon: Thor Agarwal MD; Location: [facility] PROC; Service: PULMONARY AR [facility] EBUS DX/TX 11/08/2018 N/A Pro cedure: BRONCHOSCOPY INTERVENTION PERPH LES WITH EBUS PERIPHERAL LESION-RADIAL AR OBE; Surgeon: Sandra Agarwal MD; Location: [facility] PROC; Service: PULMONARY AR REMOVE THOR LYMPH NODES RAD 12/15/2019 Chest/Left P rocedure: THORACIC REGNL LYMPHADENECTOMY BY THORACOTOMY, MED IASTINAL AND REGIONAL LYMPHADENECTOMY; Surgeon: Flavio Benson MD; Location: MAIN O R; Service: THRCV - THORACIC SURGERY Medical devices from this surgery are in t he Implants section . AR REMOVAL OF LUNG,SEGMENTECTOMY 12/15/2019 Chest/Left Procedure: SEGMENTECTOMY OF LUNG; Surgeo n: Flavio Benson MD; Loc ation: MAIN OR; Servic e: THRCV - THORACIC SURGERY Medical devices from this surgery are in t he Implants section . AR INJECTION AA&/STRD INTERCOSTAL 12/15/2019 Chest/Left Procedure: REGIONAL NRV EA ADDL LVL ANESTHETIC BLOCK OF MULTIPLE INTERCO STAL NERVES, REGIONAL BLOCK; Surgeon: Flavio shelton MD; Location: MAIN O R; Service: THRCV - THORACIC SURGERY Medical devices from this surgery are in t he Implants section . 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 Atrial fibrillation Benign prostatic hyperplasia Hyperlipidemia Squamous cell carcinoma of lower lobe of 12/28/2018 left lung Chronic obstructive pulmonary disease 03/02/2021 Family History Medical History Relation Name Comments Bladder Cancer Brother -Other cancer Granddaughter Relation Name Status Comments Brother Granddaughter Social History Tobacco Use Types Packs/Day Years Used Date Former Smoker Cigarettes Smokeless Tobacco: Former User Snuff Comments: quit at age 51 Alcohol Use Standard Drinks/Week Comments Yes 2 (1 standard drink = 0.6 oz pure alcoho l) Social Alcohol Habits Answer Date Recorded How often do you have a drink containing alcohol? Not asked How many drinks containing alcohol do you have on a typical Not asked day when you are drinking? How often do you have six or more drinks on one occasion? No t asked Comment: Social 06/16/2016 Sex Assigned at Date Recorded Not on file Job Start Date Occupation Industry Not on file Not on file Not on file COVID-19 Exposure Response Date Recorded In the last month, have you been in contact with No / Unsure 12/23/2021 12:05 PM CDT someone who was confirmed or suspected to have Coronavirus / COVID-19? Obstetrics History Last Filed Vital Signs Vital Sign Reading Time Taken Comments Blood Pressure 129/71 12/23/2021 2:02 PM CDT Pulse 65 12/23/2021 2:02 PM CDT Temperature 36.5 C (97.7 F) 12/23/2021 2:02 PM CDT Respiratory Rate 18 12/23/2021 2:02 PM CDT Oxygen Saturation 98% 12/23/2021 2:02 PM CDT Inhaled Oxygen Concentration - - Weight 92.5 kg (203 lb 14.8 oz) 12/23/2021 2:02 PM CDT Height 183 cm (6' 0.05") 03/06/2021 7:07 AM CDT Body Mass Index 27.62 03/06/2021 7:07 AM CDT Plan of Treatment Date Type Specialty Care Team Description 01/01/2022 Appointment Lab Thu Morataya, ANP [address] [place], [place] [address] (Wo rk) 01/01/2022 Office Visit Thoracic Medicine Nacho Gay MD [address] [place], [place] [address] (Wo rk) Health Maintenance Due Date Last Done Comments COVID-19 Vaccination Completed 12/01/2021, 11/11/2021, , Additional history exists Implants Implanted Type Area Bell Captain Device Shelf Model / Identifier Expiration Serial / Date Lot Cath Thoracic Str 28fr - Sn/A LDA Left: [employer] 08/12/2022 [id number] / Implanted: Qty: 1 on 12/15/2019 by Flavio Benson MD at [facility] Chest [facility] N/A / [id number] Stent Description: AAA stent Procedures Procedure Name Priority Date/Time Associated Comments Diagnosis ECHOCARDIOGRAM 2D COMPLETE Routine 12/23/2021 3:33 Squamous c ell Results for this PM CDT carcinoma, NOS of procedure are in lower lobe, lung the results <Left> section. XR CHEST 2 VW Routine 12/23/2021 1:06 Pleural effusion Result s for this PM CDT procedure are i n the results section. PROTHROMBIN TIME Routine 12/23/2021 1:05 Pleural effusion Res ults for this PM CDT procedure are i n the results section. PETCT SUBSEQUENT TREATMENT Routine 12/09/2021 11:36 Squamous c ell Results for this STRATEGY AM BUSINESS ASSOCIATE carcinoma, NOS of procedure are in lower lobe, lung the results <Left> section. FRACTIONATED BILIRUBIN Routine 12/09/2021 9:00 Squamous cell Results for this AM BUSINESS ASSOCIATE carcinoma, NOS of procedure are in lower lobe, lung the results <Left> section. TOTAL PROTEIN Routine 12/09/2021 9:00 Squamous cell Results f or this AM BUSINESS ASSOCIATE carcinoma, NOS of procedure are in lower lobe, lung the results <Left> section. ASPARTATE AMINOTRANSFERASE Routine 12/09/2021 9:00 Squamous c ell Results for this AM BUSINESS ASSOCIATE carcinoma, NOS of procedure are in lower lobe, lung the results <Left> section. ALANINE AMINOTRANSFERASE Routine 12/09/2021 9:00 Squamous olga l Results for this AM BUSINESS ASSOCIATE carcinoma, NOS of procedure are in lower lobe, lung the results <Left> section. ALKALINE PHOSPHATASE Routine 12/09/2021 9:00 Squamous cell Re sults for this AM BUSINESS ASSOCIATE carcinoma, NOS of procedure are in lower lobe, lung the results <Left> section. ALBUMIN LEVEL Routine 12/09/2021 9:00 Squamous cell Results f or this AM BUSINESS ASSOCIATE carcinoma, NOS of procedure are in lower lobe, lung the results <Left> section. CALCIUM LEVEL TOTAL Routine 12/09/2021 9:00 Squamous cell Res ults for this AM BUSINESS ASSOCIATE carcinoma, NOS of procedure are in lower lobe, lung the results <Left> section. .GLOMERULAR FILTRATION RATE Routine 12/09/2021 9:00 Squamous cell Results for this AM BUSINESS ASSOCIATE carcinoma, NOS of procedure are in lower lobe, lung the results <Left> section. SERUM CREATININE Routine 12/09/2021 9:00 Squamous cell Result s for this AM BUSINESS ASSOCIATE carcinoma, NOS of procedure are in lower lobe, lung the results <Left> section. ELECTROLYTE PANEL Routine 12/09/2021 9:00 Squamous cell Resul ts for this AM BUSINESS ASSOCIATE carcinoma, NOS of procedure are in lower lobe, lung the results <Left> section. BLOOD UREA NITROGEN Routine 12/09/2021 9:00 Squamous cell Res ults for this AM BUSINESS ASSOCIATE carcinoma, NOS of procedure are in lower lobe, lung the results <Left> section. GLUCOSE LEVEL Routine 12/09/2021 9:00 Squamous cell Results f or this AM BUSINESS ASSOCIATE carcinoma, NOS of procedure are in lower lobe, lung the results <Left> section. MANUAL DIFFERENTIAL Routine 12/09/2021 9:00 Squamous cell Res ults for this AM BUSINESS ASSOCIATE carcinoma, NOS of procedure are in lower lobe, lung the results <Left> section. Results CBC Routine 12/09/2021 9:00 Squamous cell Results fo r this AM BUSINESS ASSOCIATE carcinoma, NOS of procedure are in lower lobe, lung the results <Left> section. FREE THYROXINE Routine 12/09/2021 9:00 Squamous cell Results for this AM BUSINESS ASSOCIATE carcinoma of procedure are i n lower lobe of the results left lung section. THYROID STIMULATING HORMONE Routine 12/09/2021 9:00 Squamous cell Results for this AM BUSINESS ASSOCIATE carcinoma of procedure are i n lower lobe of the results left lung section. MAGNESIUM LEVEL Routine 12/09/2021 9:00 Squamous cell Results for this AM BUSINESS ASSOCIATE carcinoma of procedure are i n lower lobe of the results left lung section. COMPREHENSIVE METABOLIC Routine 12/09/2021 9:00 Squamous cell PANEL AM BUSINESS ASSOCIATE carcinoma of lower lobe of left lung COMPLETE BLOOD COUNT W/ Routine 12/09/2021 9:00 Squamous cell DIFFERENTIAL AM BUSINESS ASSOCIATE carcinoma of lower lobe of left lung GENERAL LABORATORY ADD ON STAT 11/13/2021 3:45 Squamous ce ll Results for this TEST PM BUSINESS ASSOCIATE carcinoma of procedure are i n lower lobe of the results left lung section. THYROID STIMULATING HORMONE Routine 11/13/2021 8:54 Results for this AM BUSINESS ASSOCIATE procedure are i n the results section. FREE THYROXINE Routine 11/13/2021 8:54 Results f or this AM BUSINESS ASSOCIATE procedure are i n the results section. MANUAL DIFFERENTIAL Routine 11/13/2021 8:54 Squamous cell Res ults for this AM BUSINESS ASSOCIATE carcinoma, NOS of procedure are in lower lobe, lung the results <Left> section. Results CBC Routine 11/13/2021 8:54 Squamous cell Results fo r this AM BUSINESS ASSOCIATE carcinoma, NOS of procedure are in lower lobe, lung the results <Left> section. FRACTIONATED BILIRUBIN Routine 11/13/2021 8:54 Squamous cell Results for this AM BUSINESS ASSOCIATE carcinoma, NOS of procedure are in lower lobe, lung the results <Left> section. 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 ASPARTATE AMINOTRANSFERASE Routine 11/13/2021 8:54 Squamous c ell Results for this AM BUSINESS ASSOCIATE carcinoma, NOS of procedure are in lower lobe, lung the results <Left> section. ALANINE AMINOTRANSFERASE Routine 11/13/2021 8:54 Squamous olga l Results for this AM BUSINESS ASSOCIATE carcinoma, NOS of procedure are in lower lobe, lung the results <Left> section. ALKALINE PHOSPHATASE Routine 11/13/2021 8:54 Squamous cell Re sults for this AM BUSINESS ASSOCIATE carcinoma, NOS of procedure are in lower lobe, lung the results <Left> section. 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 CALCIUM LEVEL TOTAL Routine 11/13/2021 8:54 Squamous cell Res ults for this AM [employer] ASSOCIATE carcinoma, NOS of procedure are in lower lobe, lung the results <Left> section. .GLOMERULAR FILTRATION RATE Routine 11/13/2021 8:54 Squamous cell Results for this AM [employer]OCIATE carcinoma, NOS of procedure are in lower lobe, lung the results <Left> section. SERUM CREATININE Routine 11/13/2021 8:54 Squamous cell Result s for this AM [employer] ASSOCIATE carcinoma, NOS of procedure are in lower lobe, lung the results <Left> section. ELECTROLYTE PANEL Routine 11/13/2021 8:54 Squamous cell Resul ts for this AM [employer] ASSOCIATE carcinoma, NOS of procedure are in lower lobe, lung the results <Left> section. BLOOD UREA NITROGEN Routine 11/13/2021 8:54 Squamous cell Res ults for this AM [employer] ASSOCIATE carcinoma, NOS of procedure are in lower lobe, lung the results <Left> section. 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 MAGNESIUM LEVEL Routine 11/13/2021 8:54 Squamous cell Results for this AM [employer] ASSOCIATE carcinoma of procedure are i n lower lobe of the results left lung section. 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 TOTAL PROTEIN Routine 10/15/2021 10:56 Results fo r this AM [employer]IATE procedure are i n the results section. ASPARTATE AMINOTRANSFERASE Routine 10/15/2021 10:56 Results for this AM [employer]OCIATE procedure are i n the results section. ALANINE AMINOTRANSFERASE Routine 10/15/2021 10:56 Results for this AM [employer] ASSOCIATE procedure are i n the results section. ALKALINE PHOSPHATASE Routine 10/15/2021 10:56 Res ults for this AM BUSINESS ASSOCIATE procedure are i n the results section. ALBUMIN LEVEL Routine 10/15/2021 10:56 Results fo r this AM [employer] ASSOCIATE procedure are i n the results section. CALCIUM LEVEL TOTAL Routine 10/15/2021 10:56 Resu lts for this AM BUSINESS ASSOCIATE procedure are i n the results section. .GLOMERULAR FILTRATION RATE Routine 10/15/2021 10:56 Results for this AM [employer]OCIATE procedure are i n the results section. SERUM CREATININE Routine 10/15/2021 10:56 Results for this AM [employer]OCIATE procedure are i n the results section. ELECTROLYTE PANEL Routine 10/15/2021 10:56 Result s for this AM [employer]OCIATE procedure are i n the results section. BLOOD UREA NITROGEN Routine 10/15/2021 10:56 Resu lts for this AM [employer] ASSOCIATE procedure are i n the results section. GLUCOSE LEVEL Routine 10/15/2021 10:56 Results fo r this AM [employer] procedure are i n the results section. MANUAL DIFFERENTIAL Routine 10/15/2021 10:56 Resu lts for this AM [employer]OCIATE procedure are i n the results section. Results CBC Routine 10/15/2021 10:56 Results for this AM [employer]IATE procedure are i n the results section. FREE THYROXINE Routine 10/15/2021 10:56 Results f or this AM [employer] procedure are i n the results section. THYROID STIMULATING HORMONE Routine 10/15/2021 10:56 Results for this AM [employer] procedure are i n the results section. MAGNESIUM LEVEL Routine 10/15/2021 10:56 Results for this AM [employer]IATE procedure are i n the results section. COMPREHENSIVE METABOLIC Routine 10/15/2021 10:56 PANEL AM [employer]ATE COMPLETE BLOOD COUNT W/ Routine 10/15/2021 10:[address] DIFFERENTIAL [address] [employer] CT CHEST W CONTRAST Routine 10/15/2021 9:56 Squamous cell Res ults for this AM [employer] ASSOCIATE carcinoma, NOS of procedure are in lower lobe, lung the results <Left> section. POC CREATININE Routine 10/15/2021 9:21 Results f or this AM [employer] procedure are i n the results section. 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 carcinoma of back EXCISION Routine 09/30/2021 8:30 Basal cell Results for this AM [employer]ATE carcinoma of back procedure are in the results section. EXCISION Routine 09/30/2021 8:29 Basal cell Results for this AM [employer] carcinoma of procedure are i n anterior chest the results section. MOHS SITE 1 Routine 09/30/2021 8:29 Squamous cell Results fo r this AM [employer] carcinoma of procedure are i n forehead the results section. MOHS SITE 1 Routine 09/30/2021 8:29 Squamous cell Results fo r this AM [employer] carcinoma of procedure are i n scalp the results section. FRACTIONATED BILIRUBIN Routine 09/18/2021 10:30 R esults for this AM [employer] ASSOCIATE procedure are i n the results section. TOTAL PROTEIN Routine 09/18/2021 10:30 Results fo r this AM [employer]IATE procedure are i n the results section. ASPARTATE AMINOTRANSFERASE Routine 09/18/2021 10:30 Results for this AM [employer]IATE procedure are i n the results section. ALANINE AMINOTRANSFERASE Routine 09/18/2021 10:30 Results for this AM [employer]IATE procedure are i n the results section. ALKALINE PHOSPHATASE Routine 09/18/2021 10:30 Res ults for this AM [employer] ASSOCIATE procedure are i n the results section. ALBUMIN LEVEL Routine 09/18/2021 10:30 Results fo r this AM [employer]IATE procedure are i n the results section. CALCIUM LEVEL TOTAL Routine 09/18/2021 10:30 Resu lts for this AM BUSINESS ASSOCIATE procedure are i n the results section. .GLOMERULAR FILTRATION RATE Routine 09/18/2021 10:30 Results for this AM [employer]OCIATE procedure are i n the results section. SERUM CREATININE Routine 09/18/2021 10:30 Results for this AM [employer] procedure are i n the results section. ELECTROLYTE PANEL Routine 09/18/2021 10:30 Result s for this AM [employer]IATE procedure are i n the results section. BLOOD UREA NITROGEN Routine 09/18/2021 10:30 Resu lts for this AM BUSINESS ASSOCIATE procedure are i n the results section. GLUCOSE LEVEL Routine 09/18/2021 10:30 Results fo r this AM [employer]IATE procedure are i n the results section. MANUAL DIFFERENTIAL Routine 09/18/2021 10:30 Resu lts for this AM BUSINESS ASSOCIATE procedure are i n the results section. Results CBC Routine 09/18/2021 10:30 Results for this AM [employer]OCIATE procedure are i n the results section. FREE THYROXINE Routine 09/18/2021 10:30 Results f or this AM [employer] procedure are i n the results section. THYROID STIMULATING HORMONE Routine 09/18/2021 10:30 Results for this AM [employer]OCIATE procedure are i n the results section. MAGNESIUM LEVEL Routine 09/18/2021 10:30 Results for this AM [employer]IATE procedure are i n the results section. COMPREHENSIVE METABOLIC Routine 09/18/2021 10:30 PANEL AM [employer]ATE COMPLETE BLOOD COUNT W/ Routine 09/18/2021 10:30 DIFFERENTIAL AM [employer] ASS[employer]IATE PATHOLOGY BIOPSY Routine 08/21/2021 10:17 Neoplasm of Results for this INTERPRETATION AM [employer] ASSOCIATE uncertain procedure are in behavior of skin the results section. CT CHEST W CONTRAST Routine 08/20/2021 10:32 Squamous cell Res ults for this AM [employer] ASSOCIATE carcinoma, NOS of procedure are in lower lobe, lung the results <Left> section. POC CREATININE Routine 08/20/2021 10:03 Results f or this AM [employer]IATE procedure are i n the results section. FRACTIONATED BILIRUBIN Routine 08/20/2021 9:23 R esults for this AM BUSINESS ASSOCIATE procedure are i n the results section. TOTAL PROTEIN Routine 08/20/2021 9:23 Results fo r this AM [employer]IATE procedure are i n the results section. ASPARTATE AMINOTRANSFERASE Routine 08/20/2021 9:23 Results for this AM [employer] ASS[employer]IATE procedure are i n the results section. ALANINE AMINOTRANSFERASE Routine 08/20/2021 9:23 Results for this AM [employer] ASSOCIATE procedure are i n the results section. ALKALINE PHOSPHATASE Routine 08/20/2021 9:23 Res ults for this AM BUSINESS ASSOCIATE procedure are i n the results section. ALBUMIN LEVEL Routine 08/20/2021 9:23 Results fo r this AM [employer] ASSOCIATE procedure are i n the results section. CALCIUM LEVEL TOTAL Routine 08/20/2021 9:23 Resu lts for this AM BUSINESS ASSOCIATE procedure are i n the results section. .GLOMERULAR FILTRATION RATE Routine 08/20/2021 9:23 Results for this AM [employer] ASS[employer]IATE procedure are i n the results section. SERUM CREATININE Routine 08/20/2021 9:23 Results for this AM [employer] ASS[employer]IATE procedure are i n the results section. ELECTROLYTE PANEL Routine 08/20/2021 9:23 Result s for this AM [employer] ASS[employer]IATE procedure are i n the results section. BLOOD UREA NITROGEN Routine 08/20/2021 9:23 Resu lts for this AM BUSINESS ASSOCIATE procedure are i n the results section. GLUCOSE LEVEL Routine 08/20/2021 9:23 Results fo r this AM [employer] ASSOCIATE procedure are i n the results section. MANUAL DIFFERENTIAL Routine 08/20/2021 9:23 Resu lts for this AM BUSINESS ASSOCIATE procedure are i n the results section. Results CBC Routine 08/20/2021 9:23 Results for this AM [employer] ASSOCIATE procedure are i n the results section. FREE THYROXINE Routine 08/20/2021 9:23 Results f or this AM [employer] ASSOCIATE procedure are i n the results section. THYROID STIMULATING HORMONE Routine 08/20/2021 9:23 Results for this AM BUSINESS ASSOCIATE procedure are i n the results section. MAGNESIUM LEVEL Routine 08/20/2021 9:23 Results for this AM BUSINESS ASSOCIATE procedure are i n the results section. COMPREHENSIVE METABOLIC Routine 08/20/2021 9:23 PANEL AM [employer]ATE COMPLETE BLOOD COUNT W/ Routine 08/20/2021 9:23 DIFFERENTIAL AM BUSINESS ASSOCIATE FRACTIONATED BILIRUBIN Routine 07/24/2021 2:10 Squamous cell Results for this PM CDT carcinoma, NOS of procedure are in lower lobe, lung the results <Left> section. TOTAL PROTEIN Routine 07/24/2021 2:10 Squamous cell Results f or this PM CDT carcinoma, NOS of procedure are in lower lobe, lung the results <Left> section. ASPARTATE AMINOTRANSFERASE Routine 07/24/2021 2:10 Squamous c ell Results for this PM CDT carcinoma, NOS of procedure are in lower lobe, lung the results <Left> section. ALANINE AMINOTRANSFERASE Routine 07/24/2021 2:10 Squamous olga l Results for this PM CDT carcinoma, NOS of procedure are in lower lobe, lung the results <Left> section. ALKALINE PHOSPHATASE Routine 07/24/2021 2:10 Squamous cell Re sults for this PM CDT carcinoma, NOS of procedure are in lower lobe, lung the results <Left> section. ALBUMIN LEVEL Routine 07/24/2021 2:10 Squamous cell Results f or this PM CDT carcinoma, NOS of procedure are in lower lobe, lung the results <Left> section. CALCIUM LEVEL TOTAL Routine 07/24/2021 2:10 Squamous cell Res ults for this PM CDT carcinoma, NOS of procedure are in lower lobe, lung the results <Left> section. .GLOMERULAR FILTRATION RATE Routine 07/24/2021 2:10 Squamous cell Results for this PM CDT carcinoma, NOS of procedure are in lower lobe, lung the results <Left> section. SERUM CREATININE Routine 07/24/2021 2:10 Squamous cell Result s for this PM CDT carcinoma, NOS of procedure are in lower lobe, lung the results <Left> section. ELECTROLYTE PANEL Routine 07/24/2021 2:10 Squamous cell Resul ts for this PM CDT carcinoma, NOS of procedure are in lower lobe, lung the results <Left> section. BLOOD UREA NITROGEN Routine 07/24/2021 2:10 Squamous cell Res ults for this PM CDT carcinoma, NOS of procedure are in lower lobe, lung the results <Left> section. GLUCOSE LEVEL Routine 07/24/2021 2:10 Squamous cell Results f or this PM CDT carcinoma, NOS of procedure are in lower lobe, lung the results <Left> section. MANUAL DIFFERENTIAL Routine 07/24/2021 2:10 Squamous cell Res ults for this PM CDT carcinoma, NOS of procedure are in lower lobe, lung the results <Left> section. Results CBC Routine 07/24/2021 2:10 Squamous cell Results fo r this PM CDT carcinoma, NOS of procedure are in lower lobe, lung the results <Left> section. MAGNESIUM LEVEL Routine 07/24/2021 2:10 Squamous cell Results for this PM CDT carcinoma, NOS of procedure are in lower lobe, lung the results <Left> section. COMPREHENSIVE METABOLIC Routine 07/24/2021 2:10 Squamous cell PANEL PM CDT carcinoma, NOS of lower lobe, lung <Left> COMPLETE BLOOD COUNT W/ Routine 07/24/2021 2:10 Squamous cell DIFFERENTIAL PM CDT carcinoma, NOS of lower lobe, lung <Left> CT CHEST ABDOMEN W CONTRAST Routine 06/25/2021 11:10 Squamous cell Results for this AM CDT carcinoma of procedure are i n lower lobe of the results left lung section. FRACTIONATED BILIRUBIN Routine 06/25/2021 8:36 Squamous cell Results for this AM CDT carcinoma of procedure are i n lower lobe of the results left lung section. TOTAL PROTEIN Routine 06/25/2021 8:36 Squamous cell Results f or this AM CDT carcinoma of procedure are i n lower lobe of the results left lung section. ASPARTATE AMINOTRANSFERASE Routine 06/25/2021 8:36 Squamous c ell Results for this AM CDT carcinoma of procedure are i n lower lobe of the results left lung section. ALANINE AMINOTRANSFERASE Routine 06/25/2021 8:36 Squamous olga l Results for this AM CDT carcinoma of procedure are i n lower lobe of the results left lung section. ALKALINE PHOSPHATASE Routine 06/25/2021 8:36 Squamous cell Re sults for this AM CDT carcinoma of procedure are i n lower lobe of the results left lung section. ALBUMIN LEVEL Routine 06/25/2021 8:36 Squamous cell Results f or this AM CDT carcinoma of procedure are i n lower lobe of the results left lung section. CALCIUM LEVEL TOTAL Routine 06/25/2021 8:36 Squamous cell Res ults for this AM CDT carcinoma of procedure are i n lower lobe of the results left lung section. .GLOMERULAR FILTRATION RATE Routine 06/25/2021 8:36 Squamous cell Results for this AM CDT carcinoma of procedure are i n lower lobe of the results left lung section. SERUM CREATININE Routine 06/25/2021 8:36 Squamous cell Result s for this AM CDT carcinoma of procedure are i n lower lobe of the results left lung section. ELECTROLYTE PANEL Routine 06/25/2021 8:36 Squamous cell Resul ts for this AM CDT carcinoma of procedure are i n lower lobe of the results left lung section. BLOOD UREA NITROGEN Routine 06/25/2021 8:36 Squamous cell Res ults for this AM CDT carcinoma of procedure are i n lower lobe of the results left lung section. GLUCOSE LEVEL Routine 06/25/2021 8:36 Squamous cell Results f or this AM CDT carcinoma of procedure are i n lower lobe of the results left lung section. MANUAL DIFFERENTIAL Routine 06/25/2021 8:36 Squamous cell Res ults for this AM CDT carcinoma of procedure are i n lower lobe of the results left lung section. Results CBC Routine 06/25/2021 8:36 Squamous cell Results fo r this AM CDT carcinoma of procedure are i n lower lobe of the results left lung section. FREE THYROXINE Routine 06/25/2021 8:36 Squamous cell Results for this AM CDT carcinoma of procedure are i n lower lobe of the results left lung section. THYROID STIMULATING HORMONE Routine 06/25/2021 8:36 Squamous cell Results for this AM CDT carcinoma of procedure are i n lower lobe of the results left lung section. MAGNESIUM LEVEL Routine 06/25/2021 8:36 Squamous cell Results for this AM CDT carcinoma of procedure are i n lower lobe of the results left lung section. 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 TOTAL PROTEIN Routine 05/21/2021 10:41 Squamous cell Results f or this AM CDT carcinoma of procedure are i n lower lobe of the results left lung section. ASPARTATE AMINOTRANSFERASE Routine 05/21/2021 10:41 Squamous c ell Results for this AM CDT carcinoma of procedure are i n lower lobe of the results left lung section. ALANINE AMINOTRANSFERASE Routine 05/21/2021 10:41 Squamous olga l Results for this AM CDT carcinoma of procedure are i n lower lobe of the results left lung section. ALKALINE PHOSPHATASE Routine 05/21/2021 10:41 Squamous cell Re sults for this AM CDT carcinoma of procedure are i n lower lobe of the results left lung section. ALBUMIN LEVEL Routine 05/21/2021 10:41 Squamous cell Results f or this AM CDT carcinoma of procedure are i n lower lobe of the results left lung section. CALCIUM LEVEL TOTAL Routine 05/21/2021 10:41 Squamous cell Res ults for this AM CDT carcinoma of procedure are i n lower lobe of the results left lung section. .GLOMERULAR FILTRATION RATE Routine 05/21/2021 10:41 Squamous cell Results for this AM CDT carcinoma of procedure are i n lower lobe of the results left lung section. SERUM CREATININE Routine 05/21/2021 10:41 Squamous cell Result s for this AM CDT carcinoma of procedure are i n lower lobe of the results left lung section. ELECTROLYTE PANEL Routine 05/21/2021 10:41 Squamous cell Resul ts for this AM CDT carcinoma of procedure are i n lower lobe of the results left lung section. BLOOD UREA NITROGEN Routine 05/21/2021 10:41 Squamous cell Res ults for this AM CDT carcinoma of procedure are i n lower lobe of the results left lung section. GLUCOSE LEVEL Routine 05/21/2021 10:41 Squamous cell Results f or this AM CDT carcinoma of procedure are i n lower lobe of the results left lung section. MANUAL DIFFERENTIAL Routine 05/21/2021 10:41 Squamous cell Res ults for this AM CDT carcinoma of procedure are i n lower lobe of the results left lung section. Results CBC Routine 05/21/2021 10:41 Squamous cell Results fo r this AM CDT carcinoma of procedure are i n lower lobe of the results left lung section. MAGNESIUM LEVEL Routine 05/21/2021 10:41 Squamous cell Results for this AM CDT carcinoma of procedure are i n lower lobe of the results left lung section. 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 THYROID STIMULATING HORMONE Routine 05/21/2021 10:41 Squamous cell Results for this AM CDT carcinoma of procedure are i n lower lobe of the results left lung section. CT CHEST ABDOMEN W CONTRAST Routine 04/23/2021 11:32 Squamous cell Results for this AM CDT carcinoma of procedure are i n lower lobe of the results left lung section. MANUAL DIFFERENTIAL Routine 04/23/2021 9:04 Squamous cell Res ults for this AM CDT carcinoma of procedure are i n lower lobe of the results left lung section. Results CBC Routine 04/23/2021 9:04 Squamous cell Results fo r this AM CDT carcinoma of procedure are i n lower lobe of the results left lung section. FRACTIONATED BILIRUBIN Routine 04/23/2021 9:04 Squamous cell Results for this AM CDT carcinoma of procedure are i n lower lobe of the results left lung section. TOTAL PROTEIN Routine 04/23/2021 9:04 Squamous cell Results f or this AM CDT carcinoma of procedure are i n lower lobe of the results left lung section. ASPARTATE AMINOTRANSFERASE Routine 04/23/2021 9:04 Squamous c ell Results for this AM CDT carcinoma of procedure are i n lower lobe of the results left lung section. ALANINE AMINOTRANSFERASE Routine 04/23/2021 9:04 Squamous olga l Results for this AM CDT carcinoma of procedure are i n lower lobe of the results left lung section. ALKALINE PHOSPHATASE Routine 04/23/2021 9:04 Squamous cell Re sults for this AM CDT carcinoma of procedure are i n lower lobe of the results left lung section. ALBUMIN LEVEL Routine 04/23/2021 9:04 Squamous cell Results f or this AM CDT carcinoma of procedure are i n lower lobe of the results left lung section. CALCIUM LEVEL TOTAL Routine 04/23/2021 9:04 Squamous cell Res ults for this AM CDT carcinoma of procedure are i n lower lobe of the results left lung section. .GLOMERULAR FILTRATION RATE Routine 04/23/2021 9:04 Squamous cell Results for this AM CDT carcinoma of procedure are i n lower lobe of the results left lung section. SERUM CREATININE Routine 04/23/2021 9:04 Squamous cell Result s for this AM CDT carcinoma of procedure are i n lower lobe of the results left lung section. ELECTROLYTE PANEL Routine 04/23/2021 9:04 Squamous cell Resul ts for this AM CDT carcinoma of procedure are i n lower lobe of the results left lung section. BLOOD UREA NITROGEN Routine 04/23/2021 9:04 Squamous cell Res ults for this AM CDT carcinoma of procedure are i n lower lobe of the results left lung section. GLUCOSE LEVEL Routine 04/23/2021 9:04 Squamous cell Results f or this AM CDT carcinoma of procedure are i n lower lobe of the results left lung section. COMPLETE BLOOD COUNT W/ Routine 04/23/2021 9:04 Squamous cell DIFFERENTIAL AM CDT carcinoma of lower lobe of left lung FREE THYROXINE Routine 04/23/2021 9:04 Squamous cell Results for this AM CDT carcinoma of procedure are i n lower lobe of the results left lung section. THYROID STIMULATING HORMONE Routine 04/23/2021 9:04 Squamous cell Results for this AM CDT carcinoma of procedure are i n lower lobe of the results left lung section. PHOSPHORUS LEVEL Routine 04/23/2021 9:04 Squamous cell Result s for this AM CDT carcinoma of procedure are i n lower lobe of the results left lung section. MAGNESIUM LEVEL Routine 04/23/2021 9:04 Squamous cell Results for this AM CDT carcinoma of procedure are i n lower lobe of the results left lung section. 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 TOTAL PROTEIN Routine 03/27/2021 2:10 Squamous cell Results f or this PM CDT carcinoma of procedure are i n lower lobe of the results left lung section. ASPARTATE AMINOTRANSFERASE Routine 03/27/2021 2:10 Squamous c ell Results for this PM CDT carcinoma of procedure are i n lower lobe of the results left lung section. ALANINE AMINOTRANSFERASE Routine 03/27/2021 2:10 Squamous olga l Results for this PM CDT carcinoma of procedure are i n lower lobe of the results left lung section. ALKALINE PHOSPHATASE Routine 03/27/2021 2:10 Squamous cell Re sults for this PM CDT carcinoma of procedure are i n lower lobe of the results left lung section. ALBUMIN LEVEL Routine 03/27/2021 2:10 Squamous cell Results f or this PM CDT carcinoma of procedure are i n lower lobe of the results left lung section. CALCIUM LEVEL TOTAL Routine 03/27/2021 2:10 Squamous cell Res ults for this PM CDT carcinoma of procedure are i n lower lobe of the results left lung section. .GLOMERULAR FILTRATION RATE Routine 03/27/2021 2:10 Squamous cell Results for this PM CDT carcinoma of procedure are i n lower lobe of the results left lung section. SERUM CREATININE Routine 03/27/2021 2:10 Squamous cell Result s for this PM CDT carcinoma of procedure are i n lower lobe of the results left lung section. ELECTROLYTE PANEL Routine 03/27/2021 2:10 Squamous cell Resul ts for this PM CDT carcinoma of procedure are i n lower lobe of the results left lung section. BLOOD UREA NITROGEN Routine 03/27/2021 2:10 Squamous cell Res ults for this PM CDT carcinoma of procedure are i n lower lobe of the results left lung section. GLUCOSE LEVEL Routine 03/27/2021 2:10 Squamous cell Results f or this PM CDT carcinoma of procedure are i n lower lobe of the results left lung section. MANUAL DIFFERENTIAL Routine 03/27/2021 2:10 Squamous cell Res ults for this PM CDT carcinoma of procedure are i n lower lobe of the results left lung section. Results CBC Routine 03/27/2021 2:10 Squamous cell Results fo r this PM CDT carcinoma of procedure are i n lower lobe of the results left lung section. URIC ACID Routine 03/27/2021 2:10 Squamous cell Results fo r this PM CDT carcinoma of procedure are i n lower lobe of the results left lung section. FREE THYROXINE Routine 03/27/2021 2:10 Squamous cell Results for this PM CDT carcinoma of procedure are i n lower lobe of the results left lung section. THYROID STIMULATING HORMONE Routine 03/27/2021 2:10 Squamous cell Results for this PM CDT carcinoma of procedure are i n lower lobe of the results left lung section. PHOSPHORUS LEVEL Routine 03/27/2021 2:10 Squamous cell Result s for this PM CDT carcinoma of procedure are i n lower lobe of the results left lung section. MAGNESIUM LEVEL Routine 03/27/2021 2:10 Squamous cell Results for this PM CDT carcinoma of procedure are i n lower lobe of the results left lung section. 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 MOHS SITE 1 Routine 03/20/2021 10:45 Basal cell Results for this AM CDT carcinoma - procedure are i n primary the results section. PATHOLOGY BIOPSY Routine 03/06/2021 10:20 Neoplasm of Results for this INTERPRETATION AM CDT uncertain procedure are in behavior of skin the results section. PETCT SUBSEQUENT TREATMENT Routine 03/06/2021 9:00 Squamous c ell Results for this STRATEGY AM CDT carcinoma of procedure are i n lower lobe of the results left lung section. POC GLUCOSE SCREEN Routine 03/06/2021 7:22 Resul ts for this AM CDT procedure are i n the results section. FRACTIONATED BILIRUBIN Routine 03/06/2021 6:48 Squamous cell Results for this AM CDT carcinoma of procedure are i n lower lobe of the results left lung section. TOTAL PROTEIN Routine 03/06/2021 6:48 Squamous cell Results f or this AM CDT carcinoma of procedure are i n lower lobe of the results left lung section. ASPARTATE AMINOTRANSFERASE Routine 03/06/2021 6:48 Squamous c ell Results for this AM CDT carcinoma of procedure are i n lower lobe of the results left lung section. ALANINE AMINOTRANSFERASE Routine 03/06/2021 6:48 Squamous olga l Results for this AM CDT carcinoma of procedure are i n lower lobe of the results left lung section. ALKALINE PHOSPHATASE Routine 03/06/2021 6:48 Squamous cell Re sults for this AM CDT carcinoma of procedure are i n lower lobe of the results left lung section. ALBUMIN LEVEL Routine 03/06/2021 6:48 Squamous cell Results f or this AM CDT carcinoma of procedure are i n lower lobe of the results left lung section. CALCIUM LEVEL TOTAL Routine 03/06/2021 6:48 Squamous cell Res ults for this AM CDT carcinoma of procedure are i n lower lobe of the results left lung section. .GLOMERULAR FILTRATION RATE Routine 03/06/2021 6:48 Squamous cell Results for this AM CDT carcinoma of procedure are i n lower lobe of the results left lung section. SERUM CREATININE Routine 03/06/2021 6:48 Squamous cell Result s for this AM CDT carcinoma of procedure are i n lower lobe of the results left lung section. ELECTROLYTE PANEL Routine 03/06/2021 6:48 Squamous cell Resul ts for this AM CDT carcinoma of procedure are i n lower lobe of the results left lung section. BLOOD UREA NITROGEN Routine 03/06/2021 6:48 Squamous cell Res ults for this AM CDT carcinoma of procedure are i n lower lobe of the results left lung section. GLUCOSE LEVEL Routine 03/06/2021 6:48 Squamous cell Results f or this AM CDT carcinoma of procedure are i n lower lobe of the results left lung section. MANUAL DIFFERENTIAL Routine 03/06/2021 6:48 Squamous cell Res ults for this AM CDT carcinoma of procedure are i n lower lobe of the results left lung section. Results CBC Routine 03/06/2021 6:48 Squamous cell Results fo r this AM CDT carcinoma of procedure are i n lower lobe of the results left lung section. FREE THYROXINE Routine 03/06/2021 6:48 Squamous cell Results for this AM CDT carcinoma of procedure are i n lower lobe of the results left lung section. THYROID STIMULATING HORMONE Routine 03/06/2021 6:48 Squamous cell Results for this AM CDT carcinoma of procedure are i n lower lobe of the results left lung section. PHOSPHORUS LEVEL Routine 03/06/2021 6:48 Squamous cell Result s for this AM CDT carcinoma of procedure are i n lower lobe of the results left lung section. MAGNESIUM LEVEL Routine 03/06/2021 6:48 Squamous cell Results for this AM CDT carcinoma of procedure are i n lower lobe of the results left lung section. 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 CALCIUM LEVEL TOTAL AM 03/03/2021 7:51 Resu lts for this AM CDT procedure are i n the results section. .GLOMERULAR FILTRATION RATE AM 03/03/2021 7:51 Results for this AM CDT procedure are i n the results section. SERUM CREATININE AM 03/03/2021 7:51 Results for this AM CDT procedure are i n the results section. ELECTROLYTE PANEL AM 03/03/2021 7:51 Result s for this AM CDT procedure are i n the results section. BLOOD UREA NITROGEN AM 03/03/2021 7:51 Resu lts for this AM CDT procedure are i n the results section. GLUCOSE LEVEL AM 03/03/2021 7:51 Results fo r this AM CDT procedure are i n the results section. PHOSPHORUS LEVEL AM 03/03/2021 7:51 Results for this AM CDT procedure are i n the results section. MAGNESIUM LEVEL AM 03/03/2021 7:51 Results for this AM CDT procedure are i n the results section. BASIC METABOLIC PANEL, AM 03/03/2021 7:51 CALCIUM TOTAL AM CDT US LEG VENOUS DOPPLER RIGHT Routine 03/02/2021 5:15 Results for this PM CDT procedure are i n the results section. CALCIUM LEVEL TOTAL Routine 03/02/2021 2:42 Resu lts for this PM CDT procedure are i n the results section. .GLOMERULAR FILTRATION RATE Routine 03/02/2021 2:42 Results for this PM CDT procedure are i n the results section. SERUM CREATININE Routine 03/02/2021 2:42 Results for this PM CDT procedure are i n the results section. ELECTROLYTE PANEL Routine 03/02/2021 2:42 Result s for this PM CDT procedure are i n the results section. BLOOD UREA NITROGEN Routine 03/02/2021 2:42 Resu lts for this PM CDT procedure are i n the results section. GLUCOSE LEVEL Routine 03/02/2021 2:42 Results fo r this PM CDT procedure are i n the results section. BASIC METABOLIC PANEL, Routine 03/02/2021 2:42 CALCIUM TOTAL PM CDT CALCIUM LEVEL TOTAL Routine 03/02/2021 5:43 Resu lts for this AM CDT procedure are i n the results section. .GLOMERULAR FILTRATION RATE Routine 03/02/2021 5:43 Results for this AM CDT procedure are i n the results section. SERUM CREATININE Routine 03/02/2021 5:43 Results for this AM CDT procedure are i n the results section. ELECTROLYTE PANEL Routine 03/02/2021 5:43 Result s for this AM CDT procedure are i n the results section. BLOOD UREA NITROGEN Routine 03/02/2021 5:43 Resu lts for this AM CDT procedure are i n the results section. GLUCOSE LEVEL Routine 03/02/2021 5:43 Results fo r this AM CDT procedure are i n the results section. LUTEINIZING HORMONE Routine 03/02/2021 5:43 Resu lts for this AM CDT procedure are i n the results section. PROLACTIN Routine 03/02/2021 5:43 Results for this AM CDT procedure are i n the results section. FOLLICLE STIMULATING Routine 03/02/2021 5:43 Res ults for this HORMONE LEVEL AM CDT procedure are in the results section. ADRENOCORTICOTROPIC HORMONE Routine 03/02/2021 5:43 Results for this AM CDT procedure are i n the results section. BASIC METABOLIC PANEL, Routine 03/02/2021 5:43 CALCIUM TOTAL AM CDT URINALYSIS WITH MICROSCOPIC Routine 03/02/2021 5:12 Results for this IF INDICATED AM CDT procedure are i n the results section. URINALYSIS MICROSCOPIC Now 03/02/2021 5:12 R esults for this AM CDT procedure are i n the results section. OSMOLALITY URINE Now 03/02/2021 5:12 Results for this AM CDT procedure are i n the results section. POTASSIUM LEVEL URINE Now 03/02/2021 5:12 Re sults for this AM CDT procedure are i n the results section. CHLORIDE LEVEL URINE Now 03/02/2021 5:12 Res ults for this AM CDT procedure are i n the results section. SODIUM URINE Now 03/02/2021 5:12 Results for this AM CDT procedure are i n the results section. CALCIUM LEVEL TOTAL Routine 03/02/2021 1:06 Resu lts for this AM CDT procedure are i n the results section. .GLOMERULAR FILTRATION RATE Routine 03/02/2021 1:06 Results for this AM CDT procedure are i n the results section. SERUM CREATININE Routine 03/02/2021 1:06 Results for this AM CDT procedure are i n the results section. ELECTROLYTE PANEL Routine 03/02/2021 1:06 Result s for this AM CDT procedure are i n the results section. BLOOD UREA NITROGEN Routine 03/02/2021 1:06 Resu lts for this AM CDT procedure are i n the results section. GLUCOSE LEVEL Routine 03/02/2021 1:06 Results fo r this AM CDT procedure are i n the results section. BASIC METABOLIC PANEL, Routine 03/02/2021 1:06 CALCIUM TOTAL AM CDT CALCIUM LEVEL TOTAL Routine 03/01/2021 9:24 Resu lts for this PM CDT procedure are i n the results section. .GLOMERULAR FILTRATION RATE Routine 03/01/2021 9:24 Results for this PM CDT procedure are i n the results section. SERUM CREATININE Routine 03/01/2021 9:24 Results for this PM CDT procedure are i n the results section. ELECTROLYTE PANEL Routine 03/01/2021 9:24 Result s for this PM CDT procedure are i n the results section. BLOOD UREA NITROGEN Routine 03/01/2021 9:24 Resu lts for this PM CDT procedure are i n the results section. GLUCOSE LEVEL Routine 03/01/2021 9:24 Results fo r this PM CDT procedure are i n the results section. BASIC METABOLIC PANEL, Routine 03/01/2021 9:24 CALCIUM TOTAL PM CDT URIC ACID Routine 03/01/2021 9:24 Results for this PM CDT procedure are i n the results section. OSMOLALITY Routine 03/01/2021 9:24 Results for this PM CDT procedure are i n the results section. FREE THYROXINE Now 03/01/2021 9:24 Results f or this PM CDT procedure are i n the results section. THYROID STIMULATING HORMONE Now 03/01/2021 9:24 Results for this PM CDT procedure are i n the results section. OSMOLALITY Now 03/01/2021 9:24 Results for this PM CDT procedure are i n the results section. SODIUM URINE Now 03/01/2021 6:19 Results for this PM CDT procedure are i n the results section. OSMOLALITY URINE Now 03/01/2021 6:19 Results for this PM CDT procedure are i n the results section. URINALYSIS WITH MICROSCOPIC Now 03/01/2021 6:19 Results for this IF INDICATED PM CDT procedure are i n the results section. URINE CULTURE Now 03/01/2021 6:19 Results fo r this PM CDT procedure are i n the results section. FRACTIONATED BILIRUBIN Now 03/01/2021 4:28 R esults for this PM CDT procedure are i n the results section. TOTAL PROTEIN Now 03/01/2021 4:28 Results fo r this PM CDT procedure are i n the results section. ASPARTATE AMINOTRANSFERASE Now 03/01/2021 4:28 Results for this PM CDT procedure are i n the results section. ALANINE AMINOTRANSFERASE Now 03/01/2021 4:28 Results for this PM CDT procedure are i n the results section. ALKALINE PHOSPHATASE Now 03/01/2021 4:28 Res ults for this PM CDT procedure are i n the results section. ALBUMIN LEVEL Now 03/01/2021 4:28 Results fo r this PM CDT procedure are i n the results section. CALCIUM LEVEL TOTAL Now 03/01/2021 4:28 Resu lts for this PM CDT procedure are i n the results section. .GLOMERULAR FILTRATION RATE Now 03/01/2021 4:28 Results for this PM CDT procedure are i n the results section. SERUM CREATININE Now 03/01/2021 4:28 Results for this PM CDT procedure are i n the results section. ELECTROLYTE PANEL Now 03/01/2021 4:28 Result s for this PM CDT procedure are i n the results section. BLOOD UREA NITROGEN Now 03/01/2021 4:28 Resu lts for this PM CDT procedure are i n the results section. GLUCOSE LEVEL Now 03/01/2021 4:28 Results fo r this PM CDT procedure are i n the results section. MANUAL DIFFERENTIAL STAT 03/01/2021 4:28 Resu lts for this PM CDT procedure are i n the results section. Results CBC STAT 03/01/2021 4:28 Results for this PM CDT procedure are i n the results section. LIPASE LEVEL Now 03/01/2021 4:28 Results for this PM CDT procedure are i n the results section. AMYLASE LEVEL Now 03/01/2021 4:28 Results fo r this PM CDT procedure are i n the results section. LACTATE DEHYDROGENASE Now 03/01/2021 4:28 Re sults for this PM CDT procedure are i n the results section. PHOSPHORUS LEVEL Now 03/01/2021 4:28 Results for this PM CDT procedure are i n the results section. MAGNESIUM LEVEL Now 03/01/2021 4:28 Results for this PM CDT procedure are i n the results section. COMPREHENSIVE METABOLIC Now 03/01/2021 4:28 PANEL PM CDT COMPLETE BLOOD COUNT W/ Now 03/01/2021 4:28 DIFFERENTIAL PM CDT INFLUENZA A/B + COVID-19 Now 03/01/2021 4:28 Results for this ASYMPTOMATIC-L PM CDT procedure are in the results section. GENERAL LABORATORY ADD ON STAT 02/06/2021 9:59 Squamous ce ll Results for this TEST AM CDT carcinoma of procedure are i n lower lobe of the results left lung section. THYROID STIMULATING HORMONE Routine 02/06/2021 8:56 Results for this AM CDT procedure are i n the results section. FREE THYROXINE Routine 02/06/2021 8:56 Results f or this AM CDT procedure are i n the results section. FRACTIONATED BILIRUBIN Routine 02/06/2021 8:56 Squamous cell Results for this AM CDT carcinoma of procedure are i n lower lobe of the results left lung section. TOTAL PROTEIN Routine 02/06/2021 8:56 Squamous cell Results f or this AM CDT carcinoma of procedure are i n lower lobe of the results left lung section. ASPARTATE AMINOTRANSFERASE Routine 02/06/2021 8:56 Squamous c ell Results for this AM CDT carcinoma of procedure are i n lower lobe of the results left lung section. ALANINE AMINOTRANSFERASE Routine 02/06/2021 8:56 Squamous olga l Results for this AM CDT carcinoma of procedure are i n lower lobe of the results left lung section. ALKALINE PHOSPHATASE Routine 02/06/2021 8:56 Squamous cell Re sults for this AM CDT carcinoma of procedure are i n lower lobe of the results left lung section. ALBUMIN LEVEL Routine 02/06/2021 8:56 Squamous cell Results f or this AM CDT carcinoma of procedure are i n lower lobe of the results left lung section. CALCIUM LEVEL TOTAL Routine 02/06/2021 8:56 Squamous cell Res ults for this AM CDT carcinoma of procedure are i n lower lobe of the results left lung section. .GLOMERULAR FILTRATION RATE Routine 02/06/2021 8:56 Squamous cell Results for this AM CDT carcinoma of procedure are i n lower lobe of the results left lung section. SERUM CREATININE Routine 02/06/2021 8:56 Squamous cell Result s for this AM CDT carcinoma of procedure are i n lower lobe of the results left lung section. ELECTROLYTE PANEL Routine 02/06/2021 8:56 Squamous cell Resul ts for this AM CDT carcinoma of procedure are i n lower lobe of the results left lung section. BLOOD UREA NITROGEN Routine 02/06/2021 8:56 Squamous cell Res ults for this AM CDT carcinoma of procedure are i n lower lobe of the results left lung section. GLUCOSE LEVEL Routine 02/06/2021 8:56 Squamous cell Results f or this AM CDT carcinoma of procedure are i n lower lobe of the results left lung section. MANUAL DIFFERENTIAL Routine 02/06/2021 8:56 Squamous cell Res ults for this AM CDT carcinoma of procedure are i n lower lobe of the results left lung section. Results CBC Routine 02/06/2021 8:56 Squamous cell Results fo r this AM CDT carcinoma of procedure are i n lower lobe of the results left lung section. LACTATE DEHYDROGENASE Routine 02/06/2021 8:56 Squamous cell R esults for this AM CDT carcinoma of procedure are i n lower lobe of the results left lung section. PHOSPHORUS LEVEL Routine 02/06/2021 8:56 Squamous cell Result s for this AM CDT carcinoma of procedure are i n lower lobe of the results left lung section. MAGNESIUM LEVEL Routine 02/06/2021 8:56 Squamous cell Results for this AM CDT carcinoma of procedure are i n lower lobe of the results left lung section. 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 TOTAL PROTEIN Routine 01/09/2021 7:04 Squamous cell Results f or this AM CDT carcinoma of procedure are i n lower lobe of the results left lung section. ASPARTATE AMINOTRANSFERASE Routine 01/09/2021 7:04 Squamous c ell Results for this AM CDT carcinoma of procedure are i n lower lobe of the results left lung section. ALANINE AMINOTRANSFERASE Routine 01/09/2021 7:04 Squamous olga l Results for this AM CDT carcinoma of procedure are i n lower lobe of the results left lung section. ALKALINE PHOSPHATASE Routine 01/09/2021 7:04 Squamous cell Re sults for this AM CDT carcinoma of procedure are i n lower lobe of the results left lung section. ALBUMIN LEVEL Routine 01/09/2021 7:04 Squamous cell Results f or this AM CDT carcinoma of procedure are i n lower lobe of the results left lung section. CALCIUM LEVEL TOTAL Routine 01/09/2021 7:04 Squamous cell Res ults for this AM CDT carcinoma of procedure are i n lower lobe of the results left lung section. .GLOMERULAR FILTRATION RATE Routine 01/09/2021 7:04 Squamous cell Results for this AM CDT carcinoma of procedure are i n lower lobe of the results left lung section. SERUM CREATININE Routine 01/09/2021 7:04 Squamous cell Result s for this AM CDT carcinoma of procedure are i n lower lobe of the results left lung section. ELECTROLYTE PANEL Routine 01/09/2021 7:04 Squamous cell Resul ts for this AM CDT carcinoma of procedure are i n lower lobe of the results left lung section. BLOOD UREA NITROGEN Routine 01/09/2021 7:04 Squamous cell Res ults for this AM CDT carcinoma of procedure are i n lower lobe of the results left lung section. GLUCOSE LEVEL Routine 01/09/2021 7:04 Squamous cell Results f or this AM CDT carcinoma of procedure are i n lower lobe of the results left lung section. MANUAL DIFFERENTIAL Routine 01/09/2021 7:04 Squamous cell Res ults for this AM CDT carcinoma of procedure are i n lower lobe of the results left lung section. Results CBC Routine 01/09/2021 7:04 Squamous cell Results fo r this AM CDT carcinoma of procedure are i n lower lobe of the results left lung section. URIC ACID Routine 01/09/2021 7:04 Squamous cell Results fo r this AM CDT carcinoma of procedure are i n lower lobe of the results left lung section. FREE THYROXINE Routine 01/09/2021 7:04 Squamous cell Results for this AM CDT carcinoma of procedure are i n lower lobe of the results left lung section. THYROID STIMULATING HORMONE Routine 01/09/2021 7:04 Squamous cell Results for this AM CDT carcinoma of procedure are i n lower lobe of the results left lung section. LACTATE DEHYDROGENASE Routine 01/09/2021 7:04 Squamous cell R esults for this AM CDT carcinoma of procedure are i n lower lobe of the results left lung section. PHOSPHORUS LEVEL Routine 01/09/2021 7:04 Squamous cell Result s for this AM CDT carcinoma of procedure are i n lower lobe of the results left lung section. MAGNESIUM LEVEL Routine 01/09/2021 7:04 Squamous cell Results for this AM CDT carcinoma of procedure are i n lower lobe of the results left lung section. 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 There is no comparison study available. Normal left ventricular size and systoli c function. LV ejection fraction calculated using th e bi-plane method of disks is 66 %. The right ventricle is normal in size an d function. Estimated RVSP is 30-35mmHg. There is no pericardial effusion. There is discrete nodular thickening of the right coronary cusp. Right Atrium is dilated. Left Ventricle: Normal left ventricular size and systoli c function. LV ejection fraction calculated using the bi-plane method of disks is 66 %. No regional wall motion abnormalities noted. I WMSI = 1.00 % Normal = 1 00 Normal global longitudinal peak systolic value. X - Cannot 1 - Normal 2 - 3 - Akinetic 4 - Dyskinetic Interpret Hyp okinetic 5 - Aneurysmal 3D imaginD volumes were not performed in this [facility]. Cardiac Mechanics/Speckle Tracking Imagi ng: Normal global longitudinal peak systolic value. Strain Imaging was performed; GLPS avg = -25.8%. Diastology: Normal diastolic function. Right Ventricle: The right ventricle is normal in size an d function. Normal RV systolic function using TAPSE criteria. Atria: Right Atrium is dilated. Mitral Valve: Mild thickening changes are noted. Tricuspid Valve: The tricuspid valve is not well visualiz ed, but is grossly normal. There is trace tricuspid regurgitation. Estimated RVSP is 30-35mmHg. Aortic Valve: The aortic valve is trileaflet. The aort ic valve opens well. There is discrete nodular thickening of the right coronary cusp. Marked aortic valve calcification. There is mild aortic regurgitation. Pulmonic Valve: The pulmonic valve is not well visualize d. Great Vessels: The aortic root is normal size. The infe rior vena cava demonstrates normal size and normal respiratory variation. Pericardium/Pleural: There is no pericardial effusion. Preliminary Reviewer Preliminary Interpretation: Ileana reeves MD. MMode/2D Measurements IVSd: 1.0 cm LVIDd: 4.3 cm LVIDs: 2.8 cm LVPWd: 0.99 cm FS: 34.2 % Ao root diam: 4.4 cm Ao root area: 15.4 cm2 LA dimension: 3.0 cm LVOT diam: 2.4 cm EDV(MOD-A4C): 97.8 ml ESV(MOD-A4C): 31.7 ml LVOT area: 4.4 cm2 EF(MOD-A4C): 67.5 % EDV(MOD-A2C): 86.6 ml ESV(MOD-A2C): 30.9 ml EDV(MOD-bp): 93.6 ml EF(MOD-A2C): 64.3 % ESV(MOD-bp): 31.7 ml EF(MOD-bp): 66.1 % LAV(MOD-A2C): 56.1 ml EDV (MOD-bp) Index: 43.5 ml/m2 LAV(MOD-A4C): 70.5 ml LAV(MOD-bp): 67.1 ml LAV(MOD-bp) Indexed: 31.1 ml/m2 ESV (MOD-bp) Index: 14.7 ml/m2 RWT: 0.46 cm TAPSE (>1.6): 2.8 cm Doppler Measurements MV E max cassie: 64.2 cm/sec MV V2 max: 100.6 cm/sec MV A max cassie: 32.6 cm/sec MV max P.0 mmHg MV E/A: 2.0 MV V2 mean: 47.4 cm/sec MV mean P.2 mmHg MV V2 VTI: 24.4 cm MVA(VTI): 4.4 cm2 MV dec time: 0.11 sec Ao V2 max: 195.8 cm/sec Ao max P.3 mmHg Ao V2 mean: 121.2 cm/sec Ao mean P.7 mmHg Ao V2 VTI: 38.7 cm BRYAN(I,D): 2.8 cm2 BRYAN(V,D): 2.6 cm2 LV V1 max P.5 mmHg SV(LVOT): 106.7 ml LV V1 mean P.5 mmHg LV V1 max: 117.0 cm/sec LV V1 mean: 71.5 cm/sec LV V1 VTI: 24.5 cm Med Peak E' Cassie: 14.2 cm/sec Lat Peak E' Cassie: 20.8 cm/sec TR max cassie: 250.2 cm/sec RAP systole: 3.0 mmHg TR max P.4 mmHg RVSP(TR): 33.4 mmHg RV S Vel_phl: 19.4 cm/sec BRYAN Index (I,D): 1.3 BRYAN Index (V,D): 1.2 Dimensionless Index: 0.60 E/e' (avg): 3.7 E/e' (lat): 3.1 E/e' (sept): 4.5 66 Procedure Note Jole King MD - 12/23/2021 Echocardiographic Report Interpretation Summary A complete two-dimensional transthoracic echocardiogram was performed (2D, M- mode, Spectral and color Doppler). There is no comparison study available. Normal left ventricular size and systoli c function. LV ejection fraction calculated using th e bi-plane method of disks is 66 %. The right ventricle is normal in size an d function. Estimated RVSP is 30-35mmHg. There is no pericardial effusion. There is discrete nodular thickening of the right coronary cusp. Right Atrium is dilated. Left Ventricle: Normal left ventricular size and systoli c function. LV ejection fraction calculated using the bi-plane method of disks is 66 %. No regional wall motion abnormalities noted. I WMSI = 1.00 % Normal = 100 Normal global longitudinal peak systolic value. X - Cannot 1 - Normal 2 - 3 - Akinetic 4 - Dyskinetic Interpret Hypokinetic 5 - Aneurysmal 3D imaginD volumes were not performed in this st udy. Cardiac Mechanics/Speckle Tracking Imagi ng: Normal global longitudinal peak systolic value. Strain Imaging was performed; GLPS avg = -25.8%. Diastology: Normal diastolic function. Right Ventricle: The right ventricle is normal in size an d function. Normal RV systolic function using TAPSE criteria. Atria: Right Atrium is dilated. Mitral Valve: Mild thickening changes are noted. Tricuspid Valve: The tricuspid valve is not well visualiz ed, but is grossly normal. There is trace tricuspid regurgitation. Estimated RVSP is 30-35mmHg. Aortic Valve: The aortic valve is trileaflet. The aort ic valve opens well. There is discrete nodular thickening of the right coronary cusp. Marked aortic valve calcification. There is mild aortic regurgitation. Pulmonic Valve: The pulmonic valve is not well visualize d. Great Vessels: The aortic root is normal size. The infe rior vena cava demonstrates normal size and normal respiratory variation. Pericardium/Pleural: There is no pericardial effusion. Preliminary Reviewer Preliminary Interpretation: Ileana reeves MD. MMode/2D Measurements IVSd: 1.0 cm LVIDd: 4.3 cm LVIDs: 2.8 cm LVPWd: 0.99 cm FS: 34.2 % Ao root julian m: 4.4 cm Ao root are a: 15.4 cm2 LA dimensio n: 3.0 cm LVOT diam: 2.4 cm EDV(MOD-A4C ): 97.8 ml ESV(MOD-A4C ): 31.7 ml LVOT area: 4.4 cm2 EF(MOD-A4C) : 67.5 % EDV(MOD-A2C): 86.6 ml ESV(MOD-A2C): 30.9 ml EDV(MOD-bp) : 93.6 ml EF(MOD-A2C): 64.3 % ESV(MOD-bp) : 31.7 ml EF(MOD-bp): 66.1 % LAV(MOD-A2C): 56.1 ml EDV (MOD-bp ) Index: 43.5 ml/m2 LAV(MOD-A4C): 70.5 ml LAV(MOD-bp): 67.1 ml LAV(MOD-bp) Indexed: 31.1 ml/m2 ESV (MOD-bp) Index: 14.7 ml/m2 RWT: 0.46 c m TAPSE (>1.6): 2.8 cm Doppler Measurements MV E max cassie: 64.2 cm/sec MV V2 max: 100. 6 cm/sec MV A max cassie: 32.6 cm/sec MV max P.0 mmHg MV E/A: 2.0 MV V2 mean: 47. 4 cm/sec MV mean P.2 mmHg MV V2 VTI: 24.4 cm MVA(VTI): 4.4 c m2 MV dec time: 0.11 sec Ao V2 max: 195. 8 cm/sec Ao max P.3 mmHg Ao V2 mean: 121 .2 cm/sec Ao mean P.7 mmHg Ao V2 VTI: 38.7 cm BRYAN(I,D): 2.8 c m2 BRYAN(V,D): 2.6 c m2 LV V1 max P.5 mmHg SV(LVOT): 106.7 ml LV V1 mean P.5 mmHg LV V1 max: 117.0 cm/sec LV V1 mean: 71.5 cm/sec LV V1 VTI: 24.5 cm Med Peak E' Cassie: 14.2 cm/sec Lat Peak E' Cassie : 20.8 cm/sec TR max cassie: 250.2 cm/sec RAP systole: 3. 0 mmHg TR max P.4 mmHg RVSP(TR): 33.4 mmHg RV S Vel_phl: 19.4 cm/sec BRYAN Index (I,D) : 1.3 BRYAN Index (V,D): 1.2 Dimensionless I ndex: 0.60 E/e' (avg): 3.7 E/e' (lat): 3.1 E/e' (sept): 4.[address] [place] [address] Organization Address City/State/ZIP Code Phon e Number ISCV X-ray Chest 2 Views (12/23/2021 1:06 PM CDT) Anatomical Region Laterality Modality Chest Digital Radiography Specimen Impressions [id number] - 12/23/2021 1:09 PM CDT Small loculated left pleural effusion. Narrative [id number] - 12/23/2021 1:09 PM CDT FULL RESULT: Examination: XR CHEST 2 VW, 12/23/2021 1: 06 PM Clinical History: Pleural effusion Indication: Pleural Effusion Comparison: 11/30/2020 Technique: Posteroanterior, lateral and dual-energy radiographs of the chest. Findings: Stable appearance of the cardiomediastin al silhouette. Postsurgical changes in the left hemithorax. There is a stable in appearance small loculated left pleural effusion No new opacities. Postsurgical changes i n the left chest wall. Procedure Note Estefani Couch MD - 12/24/19 FULL RESULT: Examination: XR CHEST 2 VW, 12/23/2021 1: 06 PM Clinical History: Pleural effusion Indication: Pleural Effusion Comparison: 11/30/2020 Technique: Posteroanterior, lateral and dual-energy radiographs of the chest. Findings: Stable appearance of the cardiomediastin al silhouette. Postsurgical changes in the left hemithorax. There is a stable in appearance small loculated left pleural effusion No new opacities. Postsurgical changes i n the left chest wall. IMPRESSION: Small loculated left pleural effusion. Performing Organization Address City/[facility] Phon e Number [id number] (ABNORMAL) Prothrombin Time (12/23/2021 1:05 PM CDT) Pathologist Sig nature PT 15.6 (H) 11.5 - 13.9 [facility] INR 1.33 (H) 0.90 - 1.10 [facility] Specimen Blood Narrative [facility] - 2 1:57 PM CDT This lab cannot be scheduled at the [facility] locations due to collection/proccessing restrictions: [facility] and [facility]. Performing Organization Address City/[facility] Code Phon e Number [facility] Unless otherwise noted, [place] [address] [place] all lab tests performed by: Division of Pathology and Laboratory Medicine [facility] Zoraida Nair PETCT Subsequent Treatment Strategy (12/09/2021 11:36 AM BUSINESS ASSOCIATE)Only the most recent of2 resultswithin the time period is included. Anatomical Region Laterality Modality Whole Body Positron Emission To mography (PET) Specimen Impressions [id number] - 12/09/2021 12:43 PM BUSINESS ASSOCIATE Increase in size and FDG avidity of the tumor recurrence in the left lung adjacent to the sutures. New small to moderate right pleural effusion. New FDG avid focus in the free wall of the left ventricle of uncertain etiology. Increase in size of the solid right renal lesion suspicious for renal neoplasm. Narrative [id number] - 12/09/2021 12:43 PM BUSINESS ASSOCIATE FULL RESULT: Examination: FDG PET/CT, 12/09/2021 11:36 AM Clinical History: Squamous cell cancer o f the left lower lobe of the lung Indication: Restaging, subsequent treatm ent strategy Comparison: CT chest of 10/15/2021 and PE T/CT of 03/06/2021 Technique: F-18 fluorodeoxyglucose (FDG) 10.5 mCi was administered intravenously via left antecubital vein. To allow for distribution and uptake of radiotracer, the patient was asked to rest quietly f or approximately 60-90 minutes. PET/CT imaging was performed from the skull to upper thighs. CT scanning was done for attenuation correction, image registration, and diagnosis with scan parameters opt imized to minimize radiation exposure to the patient. SUV measurements are reported as maximum SUV based on body weight unless otherwise specified. Findings: There is prior superior segmentectomy of the left lower lobe. Persistent tumor recurrence in the left lower lobe adjacent to the surgical resection sutures measures 3.3 cm, SUV 12.8, previously 3.3 cm o n 10/15/2021, and 2.8 cm, SUV 11 on 021. Stable radiation fibrosis in the lingula. Left hilar FDG avid focus is unchanged with SUV of 4.7, previously SUV 6.2 and a small lymph node may be present in this region. No mediastinal adenopathy is identified. Coronary artery calcification is present. New small to moderate right pleural effusion compared to 10/15/2021. Stable left pleural thickening and small left pleural effusion at the base compared to 03/06/2021. Stable FDG avid high attenuation material in the left pleural space is consistent with prior talc pleurodesis. On image 135, a new focus of increased FDG uptake with SUV of 6.1 is seen in the left ventricle free wall. On the intravenous contrast CT of 10/15/2021, no lesion is seen in this region. This may represent physiologic uptake or metastasis. Continued follow-u p is recommended. The liver, spleen, pancreas, adrenals and kidneys are unremarkable. Bilateral renal cyst are unchanged. A non-FDG avid lesion in the posterior aspect of the right kidney on image 167 of series 3 measu res 2 cm with 28 Hounsfield units suspic ious for a solid lesion, previously 1.2 cm on 05/23/2015 and may represent renal neoplasm. Cholelithiasis is noted. Aortoiliac stent graft is seen. 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 Procedure Note Ruthann Cho MD - 12/09/2021 FULL RESULT: Examination: FDG PET/CT, 12/09/2021 11:36 AM Clinical History: Squamous cell cancer o f the left lower lobe of the lung Indication: Restaging, subsequent treatm ent strategy Comparison: CT chest of 10/15/2021 and PE T/CT of 03/06/2021 Technique: F-18 fluorodeoxyglucose (FDG) 10.5 mCi was administered intravenously via left antecubital vein. To allow for distribution and uptake of radiotracer, the patient was asked to rest quietly for approximately 60-90 minutes. PET/CT nanci ging was performed from the skull to upper thighs. CT scanning was done for attenuation correction, image registration, and diagnosis with scan parameters optimized to minimize radiation exposure to the patient. SUV m easurements are reported as maximum SUV based on body weight unless otherwise specified. Findings: There is prior superior segmentectomy of the left lower lobe. Persistent tumor recurrence in the left lower lobe adjacent to the surgical resection sutures measures 3.3 cm, SUV 12.8, previously 3.3 cm on 10/15/2021, and 2.8 cm, SUV 11 on 03/06/2021. Stable radiation fibrosis in the lingula. Left hilar FDG avid focus is unchanged with SUV of 4.7, previously SUV 6.2 and a small lymph node may be present in this region. No mediastinal adenopathy is identified. Coronary arter y calcification is present. New small to moderate right pleural effusion compared to 10/15/2021. Stable left pleural thickening and small left pleural effusion at the base compared to 03/06/2021. Stable FDG avid hi gh attenuation material in the left pleural space is consistent with prior talc pleurodesis. On image 135, a new focus of increased FDG uptake with SUV of 6.1 is seen in the left ventricle free wall. On the intrave nous contrast CT of 10/15/2021, no lesion is seen in this region. This may represent physiologic uptake or metastasis. Continued follow-u p is recommended. The liver, spleen, pancreas, adrenals a nd kidneys are unremarkable. Bilateral renal cyst are unchanged. A non-FDG avid lesion in the posterior aspect of the right kidney on image 167 of series 3 measures 2 cm with 28 Hounsfield units suspicious for a solid lesion, previously 1.2 cm on 05/23/2015 and may represent renal neoplasm. Cholelithiasis is noted. Aortoiliac stent graft is seen. Stable infrarenal aortic aneurysmal sac measuring 4.6 cm. 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 IMPRESSION: Increase in size and FDG avidity of the tumor recurrence in the left lung adjacent to the sutures. New small to moderate right pleural effusion. New FDG avid focus in the free wall of the left ventricle of uncertain etiology. Increase in size of the solid right renal lesion suspicious for renal neoplasm. Performing Organization Address City/[facility]/ZIP Code Phon e Number [id number] (ABNORMAL) .Serum Creatinine (12/09/2021 9:00 AM BUSINESS ASSOCIATE)Only the most recent of19 resultswithin the time period is included. Pathologist Sig nature Creatinine 1.52 (H)Comment: 0.67 - 1.17 mg/dL [place] Testing performed at [facility], [address] [place] [address], [place] [address] Specimen Blood Narrative [place] - 12/09/2021 9:22 AM BUSINESS ASSOCIATE Within 72 hours prior to each dose. Components: Albumin, Alkaline Phosphatas e, ALT, AST, Total Bilirubin (including fractionated), Calcium, Chloride, CO2 (bicarbonate), Serum Creatinine, Glucose, Potassium, Total Protein, Sodium, Urea nitrogen (BUN). Performing Organization Address City/State/[place] [address] [place] [address] (ABNORMAL) .CBC (12/09/2021 9:00 AM BUSINESS ASSOCIATE)Only the most recent of14 resultswithin the time period is included. Pathologist Sig nature WBC 6.1Comment: All 4.0 - 11.0 K/uL [facility] components of the CBC performed at [facility], [address] [place], [place] [id number] RBC 4.01 (L)Comment: All 4.50 - 6.00 [facility] components of the CBC M/uL performed at [facility], [address] [place] [address] Hgb 9.7 (L)Comment: As 14.0 - 18.0 [facility] part of CBC or as an gm/dL individual orderable testing performed at [facility], [address] [place] [address] Hct 32.5 (L)Comment: As 40.0 - 54.0 % [place] part of CBC testing performed at [facility], [address] [place] [address] MCV 81 (L)Comment: As 82 - 98 fL [place] part of CBC testing performed at [facility], [address] [place] [address] MCH 24.2 (L)Comment: As 27.0 - 31.0 pg [place] part of CBC testing performed at [facility], [address] [place] [address] MCHC 29.8 (L)Comment: As 31.0 - 36.0 [place] part of CBC testing gm/dL performed at [facility], [address] [place], [place] [id number] RDW-SD 49.3 (H)Comment: As 35.1 - 46.3 fL [place] part of CBC testing performed at [facility], [address] [place] [address] RDW-CV 16.6 (H)Comment: As 12.0 - 15.5 % [place] part of CBC testing performed at [facility], [address] [place] [address] [place] [address] Platelet count 197Comment: As part 140 - 440 K/uL [place] of CBC or an individual orderable testing performed at [facility], [address] [place] [address], [place] [address] MPV 8.6Comment: As part 4.0 - 10.4 fL [place] of CBC testing performed at [facility], [address] [place] [address], [place] [address] Specimen Blood Narrative [place] - 12/09/2021 9:05 AM BUSINESS ASSOCIATE Within 72 hours prior to each dose. Performing Organization Address City/State/ZIP Code Ph[place] [address] [place] [address] (ABNORMAL) Glomerular Filtration Rate (12/09/2021 9:00 AM BUSINESS ASSOCIATE)Only the most recent of19 resultswithin the time period is included. Pathologist Sig nature eGFR-AA 48 (L) >=60 mL/min/1.73 [place] Comment: sq. m Normal eGFR >= 60 mL/min/1.73 m2 Note: The eGFR is calculated using the CKD-EPI equation. The eGFR declines with age. eGFR <60 mL/min/1.73 m2 is considered as "decreased". This equation should only be used for patients 18 and older. According to the National [facility]'s Kidney Disease Outcome Quality Initiative (KDOQI) classification and 2012 Kidney Disease Improving Global Outcomes (KDIGO) Clinical Practice Guideline, the stage of CKD should be categorized based on estimated GFR. Stage Description GFR mL/min/1.73 m2 1 Normal or high GFR >=90 2 Mildly decreased GFR 60-89 3a Mildly to moderately decreased GFR 45-59 3b Moderately to severely decreased GFR 30-44 4 Severely decreased GFR 15-29 5 Kidney failure <15 Testing performed at [facility], [address] [place] [address], [place] [address] eGFR-GOLDIE 41 (L) >=60 mL/min/1.73 [place] Comment: sq. m Normal eGFR >= 60 mL/min/1.73 m2 Note: The eGFR is calculated using the CKD-EPI equation. The eGFR declines with age. eGFR <60 mL/min/1.73 m2 is considered as "decreased". This equation should only be used for patients 18 and older. According to the National [facility]'s Kidney Disease Outcome Quality Initiative (KDOQI) classification and 2012 Kidney Disease Improving Global Outcomes (KDIGO) Clinical Practice Guideline, the stage of CKD should be categorized based on estimated GFR. Stage Description GFR mL/min/1.73 m2 1 Normal or high GFR >=90 2 Mildly decreased GFR 60-89 3a Mildly to moderately decreased GFR 45-59 3b Moderately to severely decreased GFR 30-44 4 Severely decreased GFR 15-29 5 Kidney failure <15 Testing performed at [facility], [address] [place] [id number] Specimen Blood Narrative [place] - 12/09/2021 9:23 AM BUSINESS ASSOCIATE Within 72 hours prior to each dose. Components: Albumin, Alkaline Phosphatas e, ALT, AST, Total Bilirubin (including fractionated), Calcium, Chloride, CO2 (bicarbonate), Serum Creatinine, Glucose, Potassium, Total Protein, Sodium, Urea nitrogen (BUN). Performing Organization Address City/[facility] [place] [address] [place] [address] Fractionated Bilirubin (12/09/2021 9:00 AM BUSINESS ASSOCIATE)Only the most recent of14 resultswithin the time period is included. [facility] Bili Total 1.0 <=1.2 mg/dL [place] Comment: Indocyanine Green (ICG) may cause falsely elevated bilirubin results. Total and direct bilirubin must not be measured from samples containing indocyanine green. False elevation of total robyn irubin can be seen in patients with IgG concentrations above 28 g/L. Testing performed at [facility], [address] [place] [address] Bili Direct 0.2 <=0.3 mg/dL [place] Comment: Indocyanine Green (ICG) may cause falsely elevated bilirubin results. Total and direct bilirubin must not be measured from samples containing indocyanine green. Testing performed at [facility], [address] [place] [address] Bili Indirect 0.8Comment: Testing 0.0 - 0.9 [place] performed at [facility] [address], [place] [address] Specimen Blood Narrative [place] - 12/09/2021 9:23 AM BUSINESS ASSOCIATE Within 72 hours prior to each dose. Components: Albumin, Alkaline Phosphatas e, ALT, AST, Total Bilirubin (including fractionated), Calcium, Chloride, CO2 (bicarbonate), Serum Creatinine, Glucose, Potassium, Total Protein, Sodium, Urea nitrogen (BUN). Performing Organization Address City/State/[place] [address] [place] [address] (ABNORMAL) Differential (12/09/2021 9:00 AM BUSINESS ASSOCIATE)Only the most recent of14 resultswithin the time period is included. Neutrophil % 74.1 (H)Comment: All 42.0 - 66.0 % [place] components of the Differential performed at [facility], [address] [place] [address] Lymphocyte % 11.4 (L)Comment: As 24.0 - 44.0 % [place] part of the Differential testing performed at [facility], [address] [place] [address] Monocyte % 10.1 (H)Comment: As 2.0 - 7.0 % [place] part of the Differential testing performed at [facility], [address] [place] [address] Eosinophil % 3.4Comment: As part of 1.0 - 4.0 % [place] the Differential testing performed at [facility], [address] [place] [address] Basophil % 0.8Comment: As part of 0.0 - 1.0 % [place] the Differential testing performed at [facility], [address] [place] [address] IGRE % 0.2 0.0 - 0.4 % [place] Comment: IGRE % count includes Metamyelocytes, Myelocytes, and Promyelocytes. As part of the Differential testing performed at [facility], [address] [place] [address] Neutrophil Abs 4.55Comment: As part 1.70 - 7.30 [facility] of the Differential K/uL testing performed at [facility], [address] [place] [address] Lymphocyte Abs 0.70 (L)Comment: As 1.00 - 4.80 [place] part of the K/uL Differential testing performed at [facility], [address] [place] [address] Monocyte Abs 0.62Comment: As part 0.08 - 0.70 [place] of the Differential K/uL testing performed at [facility], [address] [place] [address] Eosinophil Abs 0.21Comment: As part 0.04 - 0.40 [place] of the Differential K/uL testing performed at [facility], [address] [place] [address] Basophil Abs 0.05Comment: As part 0.00 - 0.10 [place] of the Differential K/uL testing performed at [facility], [address] [place] [address] IG Abs 0.01Comment: As part 0.00 - 0.04 [place] of the Differential K/uL testing performed at [facility], [address] [place] [address] Specimen Blood [facility] - 12/09/2021 9:05 AM BUSINESS ASSOCIATE Within 72 hours prior to each dose. Performing Organization Address City/State/ZIP Code Phon e Number [address] [place] [address] (ABNORMAL) BUN (12/09/2021 9:00 AM BUSINESS ASSOCIATE)Only the most recent of19 resultswithin the time period is included. Pathologist Sig nature BUN 28 (H)Comment: Testing 6 - 23 mg/dL [facility] performed at [facility], [address] [place] [address] Specimen Blood Narrative [place] - 12/09/2021 9:22 AM BUSINESS ASSOCIATE Within 72 hours prior to each dose. Components: Albumin, Alkaline Phosphatas e, ALT, AST, Total Bilirubin (including fractionated), Calcium, Chloride, CO2 (bicarbonate), Serum Creatinine, Glucose, Potassium, Total Protein, Sodium, Urea nitrogen (BUN). Performing Organization Address [facility]/[address] ALT (12/09/2021 9:00 AM BUSINESS ASSOCIATE)Only the most recent of14 resultswithin the time period is included. Pathologist Sig [facility] ALT 17Comment: Testing performed <=41 U/L [facility], [address] [place] [address] Specimen Blood [facility] - 12/09/2021 9:22 AM BUSINESS ASSOCIATE Within 72 hours prior to each dose. Components: Albumin, Alkaline Phosphatas e, ALT, AST, Total Bilirubin (including fractionated), Calcium, Chloride, CO2 (bicarbonate), Serum Creatinine, Glucose, Potassium, Total Protein, Sodium, Urea nitrogen (BUN). Performing Organization Address [facility]/[address] Aspartate Aminotransferase (12/09/2021 9:00 AM BUSINESS ASSOCIATE)Only the most recent of14 resultswithin the time period is included. Pathologist [facility] AST 17Comment: Testing performed <=40 U/L [facility], [address] [place] [address] Specimen Blood [facility] - 12/09/2021 9:22 AM BUSINESS ASSOCIATE Within 72 hours prior to each dose. Components: Albumin, Alkaline Phosphatas e, ALT, AST, Total Bilirubin (including fractionated), Calcium, Chloride, CO2 (bicarbonate), Serum Creatinine, Glucose, Potassium, Total Protein, Sodium, Urea nitrogen (BUN). Performing Organization Address [facility]/[address] TSH (12/09/2021 9:00 AM BUSINESS ASSOCIATE)Only the most recent of13 resultswithin the time period is included. Pathologist [facility] TSH 2.90Comment: Testing 0.27 - 4.20 [place] performed at [facility] [place], [address] [place] [address] Specimen Blood [facility] - 12/09/2021 9:46 AM BUSINESS ASSOCIATE Within 72 hours prior to each dose. Performing Organization Address [facility]/[address] T4, free (12/09/2021 9:00 AM BUSINESS ASSOCIATE)Only the most recent of13 resultswithin the time period is included. Pathologist Sig nature T4 Free 1.46Comment: Testing 0.93 - 1.70 ng/dL [place] performed at [facility], [address] [place] [id number] Specimen Blood [facility] - 12/09/2021 9:46 AM BUSINESS ASSOCIATE Within 72 hours prior to each dose. Performing Organization Address [facility]/[address] Total Protein (12/09/2021 9:00 AM BUSINESS ASSOCIATE)Only the most recent of14 resultswithin the time period is included. Pathologist Sig [facility] Total Protein 6.6Comment: Testing 6.4 - 8.3 g/dL [place] performed at [facility], [address] [place] [phone] Specimen Blood [facility] - 12/09/2021 9:23 AM BUSINESS ASSOCIATE Within 72 hours prior to each dose. Components: Albumin, Alkaline Phosphatas e, ALT, AST, Total Bilirubin (including fractionated), Calcium, Chloride, CO2 (bicarbonate), Serum Creatinine, Glucose, Potassium, Total Protein, Sodium, Urea nitrogen (BUN). Performing Organization Address [facility]/[place], [place] [address] [place] [address] Alkaline Phosphatase (12/09/2021 9:00 AM BUSINESS ASSOCIATE)Only the most recent of14 results within the time period is included. Pathologist Sig nature Alk Phos 95Comment: Testing 40 - 129 U/L [place] performed at [facility], [address] [place] [address] Specimen Blood [facility] - 12/09/2021 9:22 AM BUSINESS ASSOCIATE Within 72 hours prior to each dose. Components: Albumin, Alkaline Phosphatas e, ALT, AST, Total Bilirubin (including fractionated), Calcium, Chloride, CO2 (bicarbonate), Serum Creatinine, Glucose, Potassium, Total Protein, Sodium, Urea nitrogen (BUN). Performing Organization Address City/State/[place] [address] [place] [address] Magnesium (12/09/2021 9:00 AM BUSINESS ASSOCIATE)Only the most recent of15 resultswithin the time period is included. Pathologist Sig nature Magnesium 2.0Comment: Testing 1.6 - 2.6 mg/dL [place] performed at [facility], [address] [place] [address] Specimen Blood [facility] - 12/09/2021 9:23 AM BUSINESS ASSOCIATE Do Labs at [place] on 05/20/21 Performing Organization Address City/[facility] Phon e Number [facility], [place] [id number] [place] [address] (ABNORMAL) Glucose Level (12/09/2021 9:00 AM BUSINESS ASSOCIATE)Only the most recent of19 resultswithin the time period is included. Pathologist Sig nature Glucose Level 109 (H) 70 - 99 mg/dL [place] Comment: Effective 04/30/16, the gluco se reference intervals have been updated based on [place] [employer] guidelines (Standards of Medical Care in Diabetes 2016. Diabetes Care 2016; 39: S13-S22). Fasting blood glucose: Normal: 70-99 mg/dL Impaired fasting glucose (in creased risk for diabetes or pre-diabetes): 100- 125 mg/dL Diabetes mellitus: >/=126 mg/dL Random blood glucose: Normal: 70-199 mg/dL Note: Random glucose >100 mg/dL is assoc iated with increased risk for diabetes [facility], [address] [place] [address], [place] [address] Specimen Blood [facility] - 12/09/2021 9:22 AM BUSINESS ASSOCIATE Within 72 hours prior to each dose. Components: Albumin, Alkaline Phosphatas e, ALT, AST, Total Bilirubin (including fractionated), Calcium, Chloride, CO2 (bicarbonate), Serum Creatinine, Glucose, Potassium, Total Protein, Sodium, Urea nitrogen (BUN). Performing Organization Address [facility] e Number [address] [place] [address] Calcium Level (12/09/2021 9:00 AM BUSINESS ASSOCIATE)Only the most recent of19 resultswithin the time period is included. Pathologist Sig nature Calcium Lvl 9.9Comment: Testing 8.4 - 10.2 mg/dL [place] performed at [facility], [address] [place] [address] Specimen Blood [facility] - 12/09/2021 9:22 AM BUSINESS ASSOCIATE Within 72 hours prior to each dose. Components: Albumin, Alkaline Phosphatas e, ALT, AST, Total Bilirubin (including fractionated), Calcium, Chloride, CO2 (bicarbonate), Serum Creatinine, Glucose, Potassium, Total Protein, Sodium, Urea nitrogen (BUN). Performing Organization Address [facility] e Number [address] [place] [address] Albumin Level (12/09/2021 9:00 AM BUSINESS ASSOCIATE)Only the most recent of14 resultswithin the time period is included. Pathologist Sig [facility] Albumin Lvl 3.6Comment: Testing 3.5 - 5.2 gm/dL [place] performed at [facility], [address] [place] [address] Specimen Blood [facility] - 12/09/2021 9:22 AM BUSINESS ASSOCIATE Within 72 hours prior to each dose. Components: Albumin, Alkaline Phosphatas e, ALT, AST, Total Bilirubin (including fractionated), Calcium, Chloride, CO2 (bicarbonate), Serum Creatinine, Glucose, Potassium, Total Protein, Sodium, Urea nitrogen (BUN). Performing Organization Address City/[facility] e Number [address] [place] [address] (ABNORMAL) Electrolyte Panel (12/09/2021 9:00 AM BUSINESS ASSOCIATE)Only the most recent of19 resultswithin the time period is included. Pathologist Sig nature Sodium Lvl 133 (L)Comment: 136 - 145 mEq/L [place] Testing performed at [facility], [address] [place] [address] Potassium Lvl 4.7Comment: Testing 3.5 - 5.1 mEq/L [place] performed at [facility], [address] [place] [address] Chloride 97 (L)Comment: 98 - 107 mEq/L [place] Testing performed at [facility], [address] [place] [address], [place] [address] CO2 28Comment: Testing 22 - 29 mEq/L [place] performed at [facility], [address] [place] [address] Anion Gap 8Comment: Testing 4 - 14 mEq/L [place] performed at [facility], [address] [place] [address] Specimen Blood Narrative [place] - 12/09/2021 9:23 AM BUSINESS ASSOCIATE Within 72 hours prior to each dose. Components: Albumin, Alkaline Phosphatas e, ALT, AST, Total Bilirubin (including fractionated), Calcium, Chloride, CO2 (bicarbonate), Serum Creatinine, Glucose, Potassium, Total Protein, Sodium, Urea nitrogen (BUN). Performing Organization Address City/State/ZIP Code Phon e Number [place], [place] [id number] [place] [address] General Laboratory Add-On Test (11/13/2021 3:45 PM BUSINESS ASSOCIATE)Only the most recent of3 resultswithin the time period is included. Pathologist Sig nature Ordered Test Added [facility] Test Needed Free T4, TSH [facility] Specimen Existing Performing Organization Address City/State/ZIP Code Phon e Number [facility] Unless otherwise noted, [place] [address] [place] all lab tests performed by: Division of Pathology and Laboratory Medicine [facility] CT Chest with Contrast (10/15/2021 9:56 AM BUSINESS ASSOCIATE)Only the most recent of2 results within the time period is included. Anatomical Region Laterality Modality Chest Computed Tomography Specimen Impressions [id number] - 10/15/2021 11:13 AM BUSINESS ASSOCIATE * Stable pulmonary nodule at the resection site in the left lower lobe. * Subpleural nodular opacity in the ri ght lower lobe is stable. No new intrathoracic disease. This is a preliminary resident reported has not been reviewed by an attending radiologist. I personally reviewed these image(s) joannadeem saha with the resident's/fellow's interpretations, certify that if a procedure was performed I was physically present, and agree with the final report. 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 Findings: Lines and tubes: None Lungs and airways: Persistent apical emp hysematous changes bilaterally. Unchanged appearance of pulmonary nodular opacity at the postsurgical site measuring 2.7 x 3.3 cm (series 302 to image 61). All ot her pulmonary nodules are relatively unc hanged including subpleural nodular opacity in the right lower lobe measuring 1.9 cm (series 302 image 71). Pleural spaces: Small loculated chronic left pleural effusion is unchanged. Stable left pleural thickening. Lymph nodes: Small mediastinal lymph nod es are stable. No new lymphadenopathy. Cardiovascular: The heart is unchanged f rom prior examination. No pericardial effusion. Coronary artery calcifications are moderate to severe. The thoracic aorta and main pulmonary artery are normal in diameter with partially visualized aorti c stent in the upper abdomen. Other Mediastinum: None Bones and soft tissues: Multilevel degen erative changes throughout the thoracic spine with kyphosis, anterior vertebral body osteophytes (DISH) and vacuum disc phenomenon at T12-L1. These findings are relatively stable from prior examination. Upper abdomen: Multiple gallstones seen within the gallbladder and neck. No pericholecystic fluid or gallbladder wall thickening. Multiple simple bilateral exophytic cyst, most notably on the superior p ole of the right kidney. Adrenals are un remarkable. 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 Findings: Lines and tubes: None Lungs and airways: Persistent apical emp hysematous changes bilaterally. Unchanged appearance of pulmonary nodular opacity at the postsurgical site measuring 2.7 x 3.3 cm (series 302 to image 61). All other pulmonary nodules are relatively unchanged includi ng subpleural nodular opacity in the right lower lobe measuring 1.9 cm (series 302 image 71). Pleural spaces: Small loculated chronic left pleural effusion is unchanged. Stable left pleural thickening. Lymph nodes: Small mediastinal lymph nod es are stable. No new lymphadenopathy. Cardiovascular: The heart is unchanged f rom prior examination. No pericardial effusion. Coronary artery calcifications are moderate to severe. The thoracic aorta and main pulmonary artery are normal in diameter with partially visualized aorti c stent in the upper abdomen. Other Mediastinum: None Bones and soft tissues: Multilevel degen erative changes throughout the thoracic spine with kyphosis, anterior vertebral body osteophytes (DISH) and vacuum disc phenomenon at T12-L1. These findings are relatively stable from prior examination. Upper abdomen: Multiple gallstones seen within the gallbladder and neck. No pericholecystic fluid or gallbladder wall thickening. Multiple simple bilateral exophytic cyst, most notably on the superior pole of the right kidney. Adrenals are unremarkable. IMPRESSION: * Stable pulmonary nodule at the resect ion site in the left lower lobe. * Subpleural nodular opacity in the rig ht lower lobe is stable. No new intrathoracic disease. This is a preliminary resident reported has not been reviewed by an attending radiologist. I personally reviewed these image(s) joan ng with the resident's/fellow's interpretations, certify that if a procedure was performed I was physically present, and agree with the final report. Performing Organization Address City/State/ZIP Code Phon e Number [id number] (ABNORMAL) POC Creatinine (10/15/2021 9:21 AM BUSINESS ASSOCIATE)Only the most recent of2 resultswithin the time period is included. POC Crea 1.3 0.6 - 1.3 POC [facility] Comment: mg/dL Medications, especially hydr oxyurea or supplements, such as ascorbate, can interfere with test results causing a falsely and significantly higher result than expected. If a problem is suspected with a patient's result, a sample should be sent to the laboratory for confirmatory testing. Method description: The i-ST AT is an analyzer used for in vitro quantification of various analytes in whole blood. The device uses a single disposable cartridge which contains microfabricated sensors, a calibration solution, fluidics system, and a waste chamber. Each test cartridge contains chemically sensitive biosensors on a silicon chip that are configured to perform specific tests. The microfabricated sensors measure analyte concentration by an electrochemical assay. POC eGFR-AA 58 (L) >=60 POC [facility] Comment: mL/min/1.73 m2 Normal eGFR >= 60 mL/min/1.73 m2 The eGFR is calculated using the CKD-EPI equation. The eGFR declines with age. eGFR <60 mL/min/1.73 m2 is considered as "decreased" This equation should only be used for patients 18 and older. According to the National dney Foundation's Kidney Disease Outcome Quality Initiative (KDOQI) classification and 2012 Kidney Disease Improving Global Outcomes (KDIGO) Clinical Practice Guideline, the stage of CKD should be categorized based on estimated GFR. Stage Description GFR mL/min/1.73 m2 1 Kidney damage with normal or high GFR >=90 2 Kidney damage with mild decrease in GFR 60-89 3a Mild to moderate decrease in GFR 45-59 3b Moderate to severe decrease in GFR 30-44 4 Severe decrease in GFR 15-29 5 Kidney failure <15 (or dialysis) POC eGFR-GOLDIE 50 (L) >=60 POC [facility] Comment: mL/min/1.73 m2 Normal eGFR >= 60 mL/min/1.73 m2 The eGFR is calculated using the CKD-EPI equation. The eGFR declines with age. eGFR <60 mL/min/1.73 m2 is considered as "decreased" This equation should only be used for patients 18 and older. According to the National dney Foundation's Kidney Disease Outcome Quality Initiative (KDOQI) classification and 2012 Kidney Disease Improving Global Outcomes (KDIGO) Clinical Practice Guideline, the stage of CKD should be categorized based on estimated GFR. Stage Description GFR mL/min/1.73 m2 1 Kidney damage with normal or high GFR >=90 2 Kidney damage with mild decrease in GFR 60-89 3a Mild to moderate decrease in GFR 45-59 3b Moderate to severe decrease in GFR 30-44 4 Severe decrease in GFR 15-29 5 Kidney failure <15 (or dialysis) POC Clean Dev Yes POC [facility], [address], [place] [address]; Nursing Student: Brandi Nguyen MD Specimen Blood Performing Organization Address City/State/ZIP Code Phon e Number POC [facility] Pathology Biopsy Interpretation (09/30/2021 8:31 AM BUSINESS ASSOCIATE)Only the most recent of 3 resultswithin the time period is included. Pathologist Sig nature Submitted Clinical Basal cell carcinoma of anterior chest [C44.5 19] [facility] History Basal cell carcinoma of back [C44.519] Diagnosis A: Skin, right chest, ellipse: [facility] Electronically signed Skin and subcutis with healing surgical wound/scar. by Sarah BASAL CELL CARCINOMA, NODULA R AND SUPERFICIAL PATTERNS, PIGMENTED, INKED MARGINS ARE FREE. MD Calvin on Background actinic changes and folliculitis. 10/02/2021 at 12:54 See comment. PM B: Skin, central back, ellipse: Skin and subcutis with healing surgical wound/scar. BASAL CELL CARCINOMA, SUPERF ICIAL AND EARLY NODULAR PATTERNS, MARGINS ARE FREE. Diffuse background actinic changes and folliculitis. See comment. Comment A & B: Multiple [facility] additional deeper tissue sections have been cut and examined. Gross Description A: [facility] Skin, right chest: A juarez, rick irbearing, irregular skin excision measuring 2.6 x 1.6 cm and excised to a depth 0.9 cm. There is a suture attached at 1 tip without designation and will be assigned at the 12 o'clock position. The sp ecimen is serially sectioned, entirely submitted sequentially in A1-A6. ET INK CODE: From 12-3-6 o'clock, blue; from 6-9-12 o'jens ck, orange SECTION CODE: A1, 12:00 tip, ink side up; A2-A3, 12:00 half, 2 pieces each; A4- A5, 6:00 half, 2 pieces each; A6, 6:00 tip, ink side up. B: Skin, central back: A juarez, h airbearing, unoriented skin excision measuring 3.8 x 1.7 cm and excised to the 0.6 cm. There is a red-juarez, central lesion measuring 0.5 x 0.3 cm which is 0.7 cm to the close st margin. The margins are inked, serially sectioned, entirely submitted in B1-B6. ET SECTION CODE: B1, tips, ink side up; B2-B5 (3 pieces each) and B6 (2 pieces), remainder Disclaimer "Some tests reported [facility] here may have been developed and performance characteristics determined by [facility] Pathology and Laboratory Medicine. These tests have not been specifically cleared or approved by the U.S. Food and Drug Administration. If applicable, controls were reviewed and showed appropriate reactivity." Specimen Tissue - Skin Tissue - Skin Performing Organization Address City/State/ZIP Code Phon e Number [facility] [place] [address] [address] [place] 4. Excision of a nodular basal cell carcinoma located on the central back (09/30/2021 8:30 AM BUSINESS ASSOCIATE) Claudia Hernández MD - 09/30/2021 8:30 AM BUSINESS ASSOCIATE Claudia Stein MD 10/08/2021 7:39 PM 4. Excision of a nodular basal cell ca rcinoma located on the central back Date/Time: 09/30/2021 8:30 AM Consent obtained: yes [place] Protocol (Time-out) performed: yes Provider Information Authorized by: Claudia Stein MD Performed by: Claudia Stein MD Supervising Physician: Claudia Stein MD Additional Surgeon: Odette Moore MD Sap Architect present?: yes Sap Architect: Nikolas Pyle MD Patient Diagnosis Clinical preoperative diagnosis: Basal cell carcinoma Basal cell carcinoma: Nodular Postoperative diagnosis: Unchanged Lesion Description Location: Central back Preoperative size: 2 x 1 cm Postoperative size (lesion + margin): 2.8 x 1.8 cm Excision Margin: 0.4 cm Anesthesia Anesthesia method: Local infiltration Local anesthetic: Lidocaine 1% with ep inephrine 1:100,000 Anesthetic total: 5 mL Preoperative Medications Preoperative Medications: See MAR for details Surgical Prep Surgical prep: Chlorhexidine Procedure Details: Excision Excision technique: Elliptical/fusifor m After informed consent was obtained, the patient was positioned to achieve maximum access to the operative site. A wide margin surrounding the lesion was prepped and draped in the nor mal fashion. The [place] Protocol was completed. An elliptical incision was made through the skin centered about the lesion plus margin to the level of the subcutis . Procedure Details: Repair Primary repair After the risks, benefits, and alternati ves to primary and secondary intention healing were discussed with th e patient, the patient elected to undergo a primary repair. A primary re pair was indicated to restore normal function and tissue contours. S tanding cone defects were removed as were appropriate. Intermediate layered linear repair One or more deeper layers of subcutaneou s tissue and superficial (non-muscle) fascia in addition to the s kin (epidermal and dermal) closure was performed to create a intermediate l ayered linear repair. Length of repair: 4.1 cm Repair Materials Repair materials: Deep/dermal and supe rficial/epidermal Suture (deep/dermal): 3-0 vicryl Other adhesive(s): Cyanoacrylate tissu e adhesive Bandage Bandage type: Pressure dressing Pathology Submitted Specimen removed?: specimen collected Specimen: Please see the Pathology Ord er Additional testing?: no Estimated Blood Loss Estimated blood loss: Minimal Complications Complications: None Patient Disposition Discharge to: Discharge to home Discharge Medications Discharge Medications: See [facility] for det ails Comments The patient's clinical history was revie wed in detail. On the basis of available clinical data, the procedure i s in accordance with commonly accepted standards of clinical practice and does not deplete hospital capacity needed to cope with COVID-19. 3. Excision of a nodular basal cell carcinoma located on the right chest (09/30/2021 8:29 AM BUSINESS ASSOCIATE) Claudia Hernández MD - 09/30/2021 8:29 AM BUSINESS ASSOCIATE Claudia Stein MD 10/08/2021 7:39 PM 3. Excision of a nodular basal cell ca rcinoma located on the right chest Date/Time: 09/30/2021 8:29 AM Consent obtained: yes [place] Protocol (Time-out) performed: yes Provider Information Authorized by: Claudia Stein MD Performed by: Claudia Stein MD Supervising Physician: Claudia Stein MD Additional Surgeon: Odette Moore MD Sap Architect present?: yes Sap Architect: Nikolas Pyle MD Patient Diagnosis Clinical preoperative diagnosis: Basal cell carcinoma Basal cell carcinoma: Nodular Postoperative diagnosis: Unchanged Lesion Description Location: Right chest Preoperative size: 1.8 x 0.8 cm Postoperative size (lesion + margin): 2.6 x 1.6 cm Excision Margin: 0.4 cm Anesthesia Anesthesia method: Local infiltration Local anesthetic: Lidocaine 1% with ep inephrine 1:100,000 Anesthetic total: 6 mL Preoperative Medications Preoperative Medications: See [facility] for details Surgical Prep Surgical prep: Chlorhexidine Procedure Details: Excision Excision technique: Elliptical/fusifor m After informed consent was obtained, the patient was positioned to achieve maximum access to the operative site. A wide margin surrounding the lesion was prepped and draped in the nor mal fashion. The [place] Protocol was completed. An elliptical incision was made through the skin centered about the lesion plus margin to the level of the subcutis . Procedure Details: Repair Primary repair After the risks, benefits, and alternati ves to primary and secondary intention healing were discussed with e patient, the patient elected to undergo a primary repair. A primary re pair was indicated to restore normal function and tissue contours. S tanding cone defects were removed as were appropriate. Intermediate layered linear repair One or more deeper layers of subcutaneou s tissue and superficial (non-muscle) fascia in addition to the s kin (epidermal and dermal) closure was performed to create a intermediate l ayered linear repair. Length of repair: 3.4 cm Repair Materials Repair materials: Deep/dermal and supe rficial/epidermal Suture (deep/dermal): 3-0 and 4-0 vicr yl Other adhesive(s): Cyanoacrylate tissu e adhesive Bandage Bandage type: Pressure dressing Pathology Submitted Specimen removed?: specimen collected Specimen: Please see the Pathology Ord er Additional testing?: no Estimated Blood Loss Estimated blood loss: Minimal Complications Complications: None Patient Disposition Discharge to: Discharge to home Discharge Medications Discharge Medications: See [facility] for det ails Comments The patient's clinical history was revie wed in detail. On the basis of available clinical data, the procedure i s in accordance with commonly accepted standards of clinical practice and does not deplete hospital capacity needed to cope with COVID-19. 2. Mohs-assisted excision of a squamous cell carcinoma located on the left forehead (09/30/2021 8:29 AM BUSINESS ASSOCIATE) Claudia Hernández MD - 09/30/2021 8:29 AM BUSINESS ASSOCIATE Claudia Stein MD 10/08/2021 7:39 PM 2. Mohs-assisted excision of a squamou s cell carcinoma located on the left forehead Date/Time: 09/30/2021 8:29 AM Surgeon Authorized by: Claudia Stein MD Performed by: Claudia Stein MD Supervising Surgeon: Claudia Stein MD Additional Surgeon: Odette Moore MD Sap Architect: Nikolas Pyle MD Location Location: Left forehead Diagnosis Pre-operative diagnosis: Squamous cell carcinoma Squamous cell carcinoma: Well-differen tiated Post-operative diagnosis: unchanged Lesion Size Preoperative size: 1 x 1 cm Postoperative size (lesion + margin): 1. 2 x 1.1 cm Stages Total number of stages: 2 Complete tumor excision achieved: yes Indications for Mohs Indications for Mohs: Poorly defined t umor margins Anesthesia Anesthesia method: Local infiltration Local anesthetic: Lidocaine 1% with ep inephrine 1:100,000 (buffered) Anesthetic total (ml): 3 Preoperative/Intraoperative Medications Preop/Intraop medications: See MAR for details Surgical Prep Surgical prep: Chlorhexidine Procedure Details During discussion of the treatment optio ns available, based on the patient's diagnosis, it was explained to the patient that the Mohs procedure was the most appropriate treat ment for the patient's lesion. The risks and benefits of the Mohs proce dure and repair procedure were explained to the patient. Upon obtaini ng informed consent, the patient was positioned to achieve maximum access to the operative site. A wide margin surrounding the lesion was preppe d and draped in the normal sterile fashion. Local anesthesia was administer ed. The [place] Protocol was completed. The discernible tumor was e xcised as a horizontal layer with the Mohs technique. Hemostasis was obtai ludy and patient was bandaged. The tissue was precisely mapped, marked, monse ssly sectioned and submitted for fresh-frozen, horizontal processing. Hem atoxylin and eosin-stained histologic sections were evaluated by th e surgeon. This process was repeated until the end of the procedure. Tumor Histology Significant histologic findings were pre sent in stages 1 through 1. 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 Case: [id number] Stage 1: Tumor was present Number of sections positive: 1 Total number of sections: 1 Stage 2: No tumor was present at the margin of e sections evaluated Total number of sections: 1 Procedure Details: Repair Primary repair After the risks, benefits, and alternati ves to primary and secondary intention healing were discussed with e patient, the patient elected to undergo a primary repair. A primary re pair was indicated to restore normal function and tissue contours. S tanding cone defects were removed as were appropriate. Intermediate layered linear repair One or more deeper layers of subcutaneou s tissue and superficial (non-muscle) fascia in addition to the s kin (epidermal and dermal) closure was performed to create a intermediate l ayered linear repair. Length of repair: 3 cm Repair Materials Repair materials: Deep/dermal and supe rficial/epidermal Suture size (deep/dermal): 4-0 and 5-0 Suture type (deep/dermal): Vicryl Other adhesive(s): Cyanoacrylate tissu e adhesive Bandage Bandage: Pressure dressing Estimated Blood Loss Estimated blood loss: Minimal Complications Complications: None Patient Disposition Patient disposition: Discharge to home Discharge Medications Discharge medications: See MAR for det ails Comments The patient's clinical history was revie wed in detail. On the basis of available clinical data, the procedure n oted above is medically necessary to diagnose or correct a serious medical condition. The patient is at risk for cancer progression or decline in the ir medical condition if the procedure is delayed and the procedure is in accordance with commonly accepted standards of clinical practice and does not deplete hospital capacity needed to cope with COVID-19. 1. 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 Mohs-assisted excision of a squamou s cell carcinoma located on the left temporal scalp Date/Time: 09/30/2021 8:29 AM Surgeon Authorized by: Claudia Stein MD Performed by: Claudia Stein MD Supervising Surgeon: Claudia Stein MD Additional Surgeon: Odette Moore MD Sap Architect: Nikolas Pyle MD Location Location: Left temporal scalp Diagnosis Pre-operative diagnosis: Squamous cell carcinoma Post-operative diagnosis: unchanged Lesion Size Preoperative size: 1.4 x 1 cm Postoperative size (lesion + margin): 1. 5 x 1.1 cm Stages Total number of stages: 1 Complete tumor excision achieved: yes Indications for Mohs Indications for Mohs: Poorly defined t umor margins Anesthesia Anesthesia method: Local infiltration Local anesthetic: Lidocaine 1% with ep inephrine 1:100,000 (buffered) Anesthetic total (ml): 3 Preoperative/Intraoperative Medications Preop/Intraop medications: See MAR for details Surgical Prep Surgical prep: Chlorhexidine Procedure Details During discussion of the treatment optio ns available, based on the patient's diagnosis, it was explained to the patient that the Mohs procedure was the most appropriate treat ment for the patient's lesion. The risks and benefits of the Mohs proce dure and repair procedure were explained to the patient. Upon obtaini ng informed consent, the patient was positioned to achieve maximum access to the operative site. A wide margin surrounding the lesion was preppe d and draped in the normal sterile fashion. Local anesthesia was administer ed. The [place] Protocol was completed. The discernible tumor was e xcised as a horizontal layer with the Mohs technique. Hemostasis was obtai ludy and patient was bandaged. The tissue was precisely mapped, marked, monse ssly sectioned and submitted for fresh-frozen, horizontal processing. Hem atoxylin and eosin-stained histologic sections were evaluated by [facility] surgeon. This process was repeated until the end of the procedure. Tumor Histology Significant histologic findings were pre sent in stages 1 through 1 (Normal skin). Case: [id number] Stage 1: No tumor was present at the margin of [facility] sections evaluated Total number of sections: 1 Procedure Details: Repair Primary repair After the risks, benefits, and alternati ves to primary and secondary intention healing were discussed with [facility] patient, the patient elected to undergo a primary repair. A primary re pair was indicated to restore normal function and tissue contours. S tanding cone defects were removed as were appropriate. Intermediate layered linear repair One or more deeper layers of subcutaneou s tissue and superficial (non-muscle) fascia in addition to the s kin (epidermal and dermal) closure was performed to create a intermediate l ayered linear repair. Length of repair: 1.7 cm Repair Materials Repair materials: Deep/dermal and supe rficial/epidermal Suture size (deep/dermal): 4-0 Suture type (deep/dermal): Vicryl Suture size (superficial/epidermal): 5 -0 Suture type (superficial/epidermal): F ast-absorbing gut Bandage Bandage: Pressure dressing Estimated Blood Loss Estimated blood loss: Minimal Complications Complications: None Patient Disposition Patient disposition: Discharge to home Discharge Medications Discharge medications: See MAR for det ails Comments The patient's clinical history was revie wed in detail. On the basis of available clinical data, the procedure n oted above is medically necessary to diagnose or correct a serious medical condition. The patient is at risk for cancer progression or decline in the ir medical condition if the procedure is delayed and the procedure is in accordance with commonly accepted standards of clinical practice and does not deplete hospital capacity needed to cope with COVID-19. MD [facility] [address] [place] [address], [address] [place] [address] CT Chest Abdomen with Contrast (06/25/2021 11:10 AM CDT)Only the most recent of2 resultswithin the time period is included. Anatomical Region Laterality Modality Chest, Abdomen Computed Tomography Specimen Impressions [id number] - 06/26/2021 9:33 AM CDT * Stable recurrent tumor at the resection site in the left lower lobe. No new or progressive disease. 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 Technique: CT of the chest and abdomen w as performed with intravenous contrast. Findings: The lungs are emphysematous. Scarring in the lung apices. The patient is status post post resection of superior segment of left lower lobe. Soft tissue mass at the resection site is stable measuring 3.0 x 2.7 cm and consistent with recurrent malignancy. Subpleural nodular opacity in the right lower lobe is stable, image 88 series 7. No new suspicious lung nodules. There are scattered calcified granulomas. No significant intrathoracic lymphadenop athy. Small loculated left pleural effusion is unchanged. Status post left talc pleurodesis. Biatrial and right ventricular enlargeme nt. No pericardial effusion. Moderate coronary artery calcification. Mild calcification of the aortic valve. Atherosclerotic and tortuous aorta. Stable enlarged m ain pulmonary artery that may represent pulmonary hypertension. Mild heterogeneous enhancement of the li martina is unchanged. Cholelithiasis with no evidence of cholecystitis. Stable pancreatic cyst, image 185 series 6. Stable bilateral renal cysts. Small cyst in the spleen is unchanged. Adrenals are unremarkable. The visualized bowel loops are unremarka ble. Diverticulosis of the colon. No significant abdominal lymphadenopathy. Aortoiliac stent graft is seen. 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 Stable dilated bilateral common iliac arteries. No suspicious skeletal lesions. 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 Technique: CT of the chest and abdomen w as performed with intravenous contrast. Findings: The lungs are emphysematous. Scarring in the lung apices. The patient is status post post resection of superior segment of left lower lobe. Soft tissue mass at the resection site is stable measuring 3.0 x 2.7 cm and consistent with recurrent malignancy. Peña bpleural nodular opacity in the right lower lobe is stable, image 88 series 7. No new suspicious lung nodules. There are scattered calcified granulomas. No significant intrathoracic lymphadenop athy. Small loculated left pleural effusion is unchanged. Status post left talc pleurodesis. Biatrial and right ventricular enlargeme nt. No pericardial effusion. Moderate coronary artery calcification. Mild calcification of the aortic valve. Atherosclerotic and tortuous aorta. Stable enlarged main pulmonary artery that may represent pulmonary hype rtension. Mild heterogeneous enhancement of the li martina is unchanged. Cholelithiasis with no evidence of cholecystitis. Stable pancreatic cyst, image 185 series 6. Stable bilateral renal cysts. Small cyst in the spleen is unchanged. Adrenals are unremarkable. The visualized bowel loops are unremarka ble. Diverticulosis of the colon. No significant abdominal lymphadenopathy. Aortoiliac stent graft is seen. 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 Stable dilated bilateral common iliac arteries. No suspicious skeletal lesions. 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 IMPRESSION: * Stable recurrent tumor at the resecti on site in the left lower lobe. No new or progressive disease. Performing Organization Address City/[facility]/ZIP Code Phon e Number [id number] Phosphorus (04/23/2021 9:04 AM CDT)Only the most recent of7 resultswithin the time period is included. Pathologist Sig nature Phosphorus 2.9Comment: Testing 2.5 - 4.5 mg/dL [place] [facility] [address] [place] [address], [place] [address] Specimen Blood Narrative [place] - 04/23/2021 10:09 AM CDT Within 72 hours prior to each dose. Performing Organization Address City/[facility]/ZIP [facility] [place] [address] [place] [address] Uric acid (03/27/2021 2:10 PM CDT)Only the most recent of3 resultswithin the time period is included. Pathologist Sig nature Uric Acid 5.8 3.4 - 7.0 mg/dL [facility] Specimen Blood Narrative [facility] [place] - 03/27 3:03 PM CDT Within 72 hours prior to each dose. Performing Organization Address City/State/ZIP Code Phon e Number [facility] Unless otherwise noted, [place] [id number] [place] all lab tests performed by: Division of Pathology and Laboratory Medicine Velvet Nair 2. 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 Mohs-assisted excision of a basal c ell carcinoma located on the left cheek posterior Date/Time: 03/20/2021 10:47 AM Surgeon Authorized by: Claudia Stein MD Performed by: Zurdo Walker MD Supervising Surgeon: Claudia Stein MD Additional Surgeon: Zurdo Walker MD Diagnosis Pre-operative diagnosis: Basal cell ca rcinoma Basal cell carcinoma: Nodular Post-operative diagnosis: unchanged Lesion Size Preoperative size: 0.8 x 0.8 cm Postoperative size (lesion + margin): 1. 2 x 1.1 cm Stages Total number of stages: 2 Complete tumor excision achieved: yes Indications for Mohs Indications for Mohs: Poorly defined t umor margins Anesthesia Anesthesia method: Local infiltration Local anesthetic: Lidocaine 1% with ep inephrine 1:100,000 (buffered) Anesthetic total (ml): 2 Preoperative/Intraoperative Medications Preop/Intraop medications: See MAR for details Surgical Prep Surgical prep: Chlorhexidine Procedure Details During discussion of the treatment optio ns available, based on the patient's diagnosis, it was explained to the patient that the Mohs procedure was the most appropriate treat ment for the patient's lesion. The risks and benefits of the Mohs proce dure and repair procedure were explained to the patient. Upon obtaini ng informed consent, the patient was positioned to achieve maximum access to the operative site. A wide margin surrounding the lesion was preppe d and draped in the normal sterile fashion. Local anesthesia was administer ed. The [place] Protocol was completed. The discernible tumor was e xcised as a horizontal layer with the Mohs technique. Hemostasis was obtai ludy and patient was bandaged. The tissue was precisely mapped, marked, monse ssly sectioned and submitted for fresh-frozen, horizontal processing. Hem atoxylin and eosin-stained histologic sections were evaluated by th e surgeon. This process was repeated until the end of the procedure. Tumor Histology Significant histologic findings were pre sent in stages 1 through 1. 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 Case: [id number] Stage 1: Tumor was present Number of sections positive: 1 Total number of sections: 1 Stage 2: No tumor was present at the margin of th e sections evaluated Total number of sections: 1 Procedure Details: Repair Primary repair After the risks, benefits, and alternati ves to primary and secondary intention healing were discussed with e patient, the patient elected to undergo a primary repair. A primary re pair was indicated to restore normal function and tissue contours. S tanding cone defects were removed as were appropriate. Intermediate layered linear repair One or more deeper layers of subcutaneou s tissue and superficial (non-muscle) fascia in addition to the s kin (epidermal and dermal) closure was performed to create a intermediate l ayered linear repair. Length of repair: 2.8 cm Repair Materials Repair materials: Deep/dermal and supe rficial/epidermal Suture size (deep/dermal): 4-0 Suture type (deep/dermal): Vicryl Suture size (superficial/epidermal): 5 -0 Suture type (superficial/epidermal): F ast-absorbing gut Bandage Bandage: Pressure dressing Estimated Blood Loss Estimated blood loss: Minimal Complications Complications: None Patient Disposition Patient disposition: Discharge to home Discharge Medications Discharge medications: See MAR for det ails and mupirocin 2% ointment Comments The patient's clinical history was revie wed in detail. On the basis of available clinical data, the procedure n oted above is medically necessary to diagnose or correct a serious medical condition. The patient is at risk for cancer progression or decline in the ir medical condition if the procedure is delayed and the procedure is in accordance with commonly accepted standards of clinical practice and does not deplete hospital capacity needed to cope with COVID-19. [facility] [address] [place] [address], [address] [place] [address] 1. Mohs-assisted excision of a bassal cell carcinoma located on the right forehead (03/20/2021 10:45 AM CDT) Claudia Hernández MD - 03/20/2021 10:45 AM CDT Zurdo Walker MD 03/20/2021 10:51 AM 1. Mohs-assisted excision of a bassal cell carcinoma located on the right forehead Date/Time: 03/20/2021 10:45 AM Surgeon Authorized by: Claudia Stein MD Performed by: Zurdo Walker MD Supervising Surgeon: Claudia Stein MD Additional Surgeon: Zurdo Walker MD Diagnosis Pre-operative diagnosis: Basal cell ca rcinoma Basal cell carcinoma: Nodular Post-operative diagnosis: unchanged Lesion Size Preoperative size: 0.6 x 0.4 cm Postoperative size (lesion + margin): 0. 8 x 0.8 cm Stages Total number of stages: 2 Complete tumor excision achieved: yes Indications for Mohs Indications for Mohs: Poorly defined t umor margins Anesthesia Anesthesia method: Local infiltration Local anesthetic: Lidocaine 1% with ep inephrine 1:100,000 (buffered) Anesthetic total (ml): 2 Preoperative/Intraoperative Medications Preop/Intraop medications: See MAR for details Surgical Prep Surgical prep: Chlorhexidine Procedure Details During discussion of the treatment optio ns available, based on the patient's diagnosis, it was explained to the patient that the Mohs procedure was the most appropriate treat ment for the patient's lesion. The risks and benefits of the Mohs proce dure and repair procedure were explained to the patient. Upon obtaini ng informed consent, the patient was positioned to achieve maximum access to the operative site. A wide margin surrounding the lesion was preppe d and draped in the normal sterile fashion. Local anesthesia was administer ed. The [place] Protocol was completed. The discernible tumor was e xcised as a horizontal layer with the Mohs technique. Hemostasis was obtai ludy and patient was bandaged. The tissue was precisely mapped, marked, monse ssly sectioned and submitted for fresh-frozen, horizontal processing. Hem atoxylin and eosin-stained histologic sections were evaluated by [facility] surgeon. This process was repeated until the end of the procedure. Tumor Histology Significant histologic findings were pre sent in stages 1 through 1. 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 Case: [id number] Stage 1: Tumor was present Number of sections positive: 1 Total number of sections: 1 Stage 2: No tumor was present at the margin of [facility] sections evaluated Total number of sections: 1 Procedure Details: Repair Primary repair After the risks, benefits, and alternati ves to primary and secondary intention healing were discussed with [facility] patient, the patient elected to undergo a primary repair. A primary re pair was indicated to restore normal function and tissue contours. S tanding cone defects were removed as were appropriate. Intermediate layered linear repair One or more deeper layers of subcutaneou s tissue and superficial (non-muscle) fascia in addition to the s kin (epidermal and dermal) closure was performed to create a intermediate l ayered linear repair. Length of repair: 2.5 cm Repair Materials Repair materials: Deep/dermal and supe rficial/epidermal Suture size (deep/dermal): 4-0 Suture type (deep/dermal): Vicryl Suture size (superficial/epidermal): 5 -0 Suture type (superficial/epidermal): F ast-absorbing gut Bandage Bandage: Pressure dressing Estimated Blood Loss Estimated blood loss: Minimal Complications Complications: None Patient Disposition Patient disposition: Discharge to home Discharge Medications Discharge medications: See MAR for det ails and mupirocin 2% ointment Comments The patient's clinical history was revie wed in detail. On the basis of available clinical data, the procedure n oted above is medically necessary to diagnose or correct a serious medical condition. The patient is at risk for cancer progression or decline in the ir medical condition if the procedure is delayed and the procedure is in accordance with commonly accepted standards of clinical practice and does not deplete hospital capacity needed to cope with COVID-19. [facility] [address] [facility], [address] [place] [address] (ABNORMAL) POC Glucose Screen (03/06/2021 7:22 AM CDT) Pathologist [facility] [place] POC Glucose 104 (H) 70 - 99 mg/dL POC [facility] Comment: Capillary blood samples, e.g . obtained by fingerstick, may have inaccurate results in patients with decreased peripheral blood flow. Method description: All resu lts are measured using Electrochemistry test methodology. The glucose in the sample mixes with the reagents on the test strip. The reaction produces an electric current. The amount of current produced is proportional to the glucose concentration in the blood. PO Sample Type Venous POC [facility] POC [facility] MD [facility], [address] [facility], [place] [address]; Nursing Student: Brandi Nguyen MD Specimen Blood Performing Organization Address City/State/ZIP Code Phon e Number POC [facility] US Leg Venous Doppler Right (03/02/2021 5:15 PM CDT) Anatomical Region Laterality Modality Leg, Extremity Ultrasound Specimen Impressions [id number] - 03/02/2021 8:35 PM CDT Negative for deep venous thrombosis in t he right lower extremity. I personally reviewed these image(s) joannadeem saha with the resident's/fellow's interpretations, certify that if a procedure was performed I was physically present, and agree with the final report. Narrative [id number] - 03/02/2021 8:35 PM CDT FULL RESULT: Examination: US LEG VENOUS DOPPLER RIGHT , 03/02/2021 5:15 PM Clinical History: 85-year-old male treat ed for squamous cell carcinoma of the left lung who has right lower extremity swelling. Indication: Edema Comparison: None available. Technique: Grayscale and color/spectral Doppler ultrasound of the right lower extremity veins was performed. Findings: The right common femoral, femoral, and p opliteal veins demonstrate color flow, compressibility, and response to augmentation. The visualized posterior tibial, peroneal and anterior tibial veins are patent and compressible. Procedure Note Kvng Purcell MD - 03/02/2021 FULL RESULT: Examination: US LEG VENOUS DOPPLER RIGHT , 03/02/2021 5:15 PM Clinical History: 85-year-old male treat ed for squamous cell carcinoma of the left lung who has right lower extremity swelling. Indication: Edema Comparison: None available. Technique: Grayscale and color/spectral Doppler ultrasound of the right lower extremity veins was performed. Findings: The right common femoral, femoral, and p opliteal veins demonstrate color flow, compressibility, and response to augmentation. The visualized posterior tibial, peroneal and anterior tibial veins are patent and compressible. IMPRESSION: Negative for deep venous thrombosis in t he right lower extremity. I personally reviewed these image(s) joannadeem saha with the resident's/fellow's interpretations, certify that if a procedure was performed I was physically present, and agree with the final report. Performing Organization Address [facility] Phon e Number [id number] ACTH (03/02/2021 5:43 AM CDT) Pathologist [facility] [place], [place] master ACTH 48 7 - 63 pg/mL [facility] Comment: [facility] Results greater than 1826 pg /mL may not be reliable due to matrix effect with extended dilution as it exceeds the set illustrator's recommended limit. ACTH reference intervals are established for the morni ng hours from 7-10 am. Due to the circadian rhythm of ACTH levels in plasma, th e sample collection time must be noted. Caution should be exercised when interpreting such values and done in conjunction with clinical context. Specimen Blood Performing Organization Address [facility] e Number [facility] CANCER Unless otherwise noted, [address] all lab tests performed by: Division of Pathology and Laboratory Medicine [facility] [address] [place] Prolactin (03/02/2021 5:43 AM CDT) Pathologist [facility] [place] Prolactin 10.1Comment: Results 4.0 - 15.2 [facility] greater than 4700.0 ng/mL [facility] ng/mL may not be reliable due to matrix effect with extended dilution as it exceeds the set illustrator s recommended limit. Caution should be exercised when interpreting such values and done in conjunction with clinical context. Specimen Blood Performing Organization Address [facility] e Number [facility] CANCER Unless otherwise noted, [address] all lab tests performed by: Division of Pathology and Laboratory Medicine [facility] [place] (ABNORMAL) LH (03/02/2021 5:43 AM CDT) Pathologist [facility] [place] LH 10.0 (H) 1.7 - 8.6 [facility] Comment: mIU/mL [facility] Female Luteinizing Hormone Reference Ranges: LOW H IGH Follicular 2.4 12.6 Ovulation 14.0 95.6 Luteal 1.0 11.4 Postmenopause 7.7 58.5 Specimen Blood Performing Organization Address [facility] e Number [facility] CANCER Unless otherwise noted, [address] all lab tests performed by: Division of Pathology and Laboratory Medicine [facility] [place] FSH Level (03/02/2021 5:43 AM CDT) FSH 9.4 1.5 - 12.4 [facility] Comment: mIU/mL [facility] CENTER Female Follicle Stimulating Hormone Reference Ranges: LOW HI GH Follicular 3.5 12.5 Ovulation 4.7 21.5 Luteal 1.7 7.7 Postmenopause 25.8 134.8 Specimen Blood Performing Organization Address City/[facility]/ZIP Code Phon e Number [facility] CANCER Unless otherwise noted, [address] all lab tests performed by: Division of Pathology and Laboratory Medicine [address] [place] Urinalysis with Microscopic (03/02/2021 5:12 AM CDT) Pathologist Sig nature UA WBC <1 0 - 2 /HPF [facility] UA RBC <1 0 - 2 /HPF [facility] UA Mucous NOT SEEN Not Seen-Trace /HPF [facility] UA Bacteria NOT SEEN NOT SEEN /HPF [facility] UA Squam Epi NOT SEEN None-Occasional [facility] CANCER /[facility] Specimen Urine Narrative [facility] - 5:53 AM CDT Some reporting parameters within the Urinalysis test have changed due to the implementation of new in strumentation in the Main [place], allowi ng greater sensitivity of measurement. Urinalysis results reported by the [facility] using existing instrumentation, as well as Urinalysis t esting performed manually or by backup methodology at the [facility] will remain relatively unchanged. New reporting parameters and units will now be reported for all campuses. Performing Organization Address City/[facility]/ZIP Code Phon e Number [facility] CANCER Unless otherwise noted, [address] all lab tests performed by: Division of Pathology and Laboratory Medicine [address] [place] Sodium Urine (03/02/2021 5:12 AM CDT)Only the most recent of2 resultswithin the time period is included. Pathologist Sig nature U Sodium 35Comment: Normal range mEq/L [facility] not available for [facility] collections less than 24 hours in duration. Specimen Urine Performing Organization Address City/[facility]/ZIP Code Phon e Number [facility] CANCER Unless otherwise noted, [address] all lab tests performed by: Division of Pathology and Laboratory Medicine [address] [place] Potassium Urine (03/02/2021 5:12 AM CDT) Pathologist Sig nature U Potassium 9Comment: Normal range mEq/L [facility] not available for [facility] collections less than 24 hours in duration. Specimen Urine Performing Organization Address City/[facility]/ZIP Code Phon e Number [facility] CANCER Unless otherwise noted, [address] all lab tests performed by: Division of Pathology and Laboratory Medicine [address] [place] Osmolality Urine (03/02/2021 5:12 AM CDT)Only the most recent of2 resultswithin the time period is included. U Osmolality 178 50 - 1,400 [facility] Comment: mOsm/kg H2O [facility] Urinary osmolality may vary widely, depending on the state of hydration. Random urine osmolality can range from 50 to 1400 mOsm/kg H2O depending on fluid intake. In individuals on average fluid intake, urine osmolality is typically 300-900 mOsm/kg H2O. Units of measure: mOsm per Kg of water. Specimen Urine Performing Organization Address [facility] e Number [facility] Unless otherwise noted, [address] all lab tests performed by: Division of Pathology and Laboratory Medicine [address] [place] Chloride Urine (03/02/2021 5:12 AM CDT) Pathologist Sig nature U Chloride 24Comment: Normal mEq/L [facility] range not available [facility] for collections less than 24 hours in duration. Specimen Urine Performing Organization Address City/[facility] e Number [facility] CANCER Unless otherwise noted, [address] all lab tests performed by: Division of Pathology and Laboratory Medicine [address] [place] Urinalysis w/Microscopic if Indicated (03/02/2021 5:12 AM CDT)Only the most recent of2 resultswithin the time period is included. Pathologist Sig nature UA Color Yellow Straw-Yellow [facility] UA Appear Clear Clear [facility] UA Glucose NEG NEG mg/dL [facility] UA Bili NEG NEG [facility] UA Ketones NEG NEG mg/dL [facility] UA Spec Grav 1.005 1.003 - 1.035 [facility] UA Blood NEG NEG [facility] UA pH 7.0 5.0 - 9.0 [facility] UA Protein NEG NEG mg/dL [facility] UA Urobilinogen NEG NEG [facility] UA Nitrite NEG NEG [facility] UA Leuk Est NEG NEG [facility] Specimen Urine Performing Organization Address City/[facility]/ZIP Code Phon e Number [facility] CANCER Unless otherwise noted, [address] all lab tests performed by: Division of Pathology and Laboratory Medicine [address] [place] (ABNORMAL) Osmolality (03/01/2021 9:24 PM CDT)Only the most recent of2 results within the time period is included. Pathologist Sig nature Osmolality 258 (L)Comment: 275 - 300 [facility] Units in mOsm mOsm/kg H2O [facility] CENTER per kg of water. Specimen Blood Performing Organization Address City/[facility] Code Phon e Number [facility] CANCER Unless otherwise noted, [address] all lab tests performed by: Division of Pathology and Laboratory Medicine [address] [place] Urine Culture (03/01/2021 6:19 PM CDT) Pathologist Edilberto Final Report No growth [facility] Path Review - The results have been review ed and electronically signed by Pathologist: [facility] Urine CHRISTIAN BERUMEN MD #[id number] [facility] R Specimen Urine Performing Organization Address City/[facility] Code Phon e Number [facility] CANCER Unless otherwise noted, [address] all lab tests performed by: Division of Pathology and Laboratory Medicine [facility] [place] Influenza A/B + COVID-19 Asymptomatic- L (03/01/2021 4:28 PM CDT) COVID19 Not Detected Not Detected [facility] (SARS-CoV-2) [facility] Influenza A Not Detected Not Detected [facility] Influenza B Not Detected Not Detected [facility] COVID19 SARS Inpatient Admission [facility] Indication [facility] Inf AB+Cov19 See Note [facility] Comment Comment: [facility] The odalis SARS-CoV-2 & Influ adrianne A/B nucleic acid test for use on the odalis [place] System is a multiplex real-time RT-PCR assay intended for the simultaneous, qualitative detection and differential of SARS-CoV-2 (COVID-19), influenza A, and influenza B viral RNA in nasopharyngeal swabs in transport media from patients suspected of having a respiratory infection with one of these viruses or possibly exposure to COVID-19 by a healthcare provider. Results must be interpreted within the context of all relevant clinical and labora tory findings and should not form the sole basis for a diagnosis or treatment decision. A fact sheet for patients provided by the set illustrator ([employer]) can be reviewed at: https://www.[employer].gov/media/063839/download A fact sheet for Health Care providers is provided by the set illustrator ([employer]) and can be reviewed at: https://www.fda.gov/media/707658/download Influenza A and Influenza B negative results should be considered presumptive in samples that have a positive SARS-CoV-2 result. If co-infection with influenza A or influenza B virus is suspected in flaco ples with a positive SARS-CoV-2 results, the sample should be re-tested with another approved influenza te st. This assay has been authoriz ed by the FDA for use only under Emergency Use Authorization (EUA) in laboratories that have been CLIA-certified to perform moderate-complexity and high-complexity tests. The Microbiology Laboratory at [facility], CLIA Accreditation # [id number] and CAP Accreditation #[id number], verified the performance characteristics of this assay. Internal controls are used to monitor all stages of the test process. Specimen Nasopharyngeal Swab Performing Organization Address City/[facility]/ZIP Code Phon e Number [facility] Unless otherwise noted, [address] all lab tests performed by: Division of Pathology and Laboratory Medicine [address] [place] Lipase (03/01/2021 4:28 PM CDT) Pathologist Sig nature Lipase Lvl 22 13 - 60 U/L [facility] Specimen Blood Performing Organization Address City/[facility] Phon e Number [facility] CANCER Unless otherwise noted, [address] all lab tests performed by: Division of Pathology and Laboratory Medicine [address] [place] LDH (03/01/2021 4:28 PM CDT)Only the most recent of3 resultswithin the time period is included. LDH 195Comment: Results 135 - 225 U/L [facility] greater than 1651 U/L [facility] may not be reliable due to matrix effect with extended dilution as it exceeds the set illustrator s recommended limit. Caution should be exercised when interpreting such values and done in conjunction with clinical context. Specimen Blood Performing Organization Address City/State/ZIP Code Phon e Number [facility] CANCER Unless otherwise noted, [address] all lab tests performed by: Division of Pathology and Laboratory Medicine Velvet Nair Amylase (03/01/2021 4:28 PM CDT) Pathologist Sig nature Amylase Lvl 65 28 - 100 U/L [facility] Specimen Blood Performing Organization Address City/State/ZIP Code Phon e Number [facility] CANCER Unless otherwise noted, [address] all lab tests performed by: Division of Pathology and Laboratory Medicine Velvet Nair MD Solid Tumor Genomic Assay Fusions 2018 Interpretation and Report (01/14/2021 1:03 PM CDT) Specimen Narrative This result has an attachment that is no t available. Solid Tumor Genomic Assay DNA 2018 Interpretation and Report (01/14/2021 1:03 PM CDT) Specimen Narrative This result has an attachment that is no t available. after 12/30/2020 Insurance Payer Benefit Plan / Subscriber ID Effective Phone Address T ype Group Dates [employer] MEDICARE [id number] 2017-Prese [address] [address] Medicare HEALTHCARE ADVANTAGE [place] [id number] Advance Directives Code Status Date Activated Date Inactivated Comments Full Code 03/01/2021 8:56 PM 03/03/2021 4:01 PM Full Code 12/15/2019 10:10 AM 12/17/2019 3:34 PM Care Teams Director Of Manufacturing Relationship Specialty Start Date End Date Leonard Giraldo MD PCP - General 12/05/[address] [place] [id number] Torey Martins MD PCP - External Referring 06/01/[address] [place] [phone] Torey Martins MD PCP - External Follow Up A 06/01/[address] [place] [phone] Claudia Stein MD PCP - External Follow Up C Dermatology 03/20/[address] [place] [id number] Leonard Giraldo MD Physician 12/12/[address] [place] [id number]
--- OUTSIDE RECORDS SUMMARY | 2021-12-30 20:10 | XMS REPORT | Continuity of Care Document ---
:1935 Author Organization [facility] t Address [address] [place] [address] Care Team Providers Name Role Phone [phone] Primary Care Physician Unavailable Luis POWELL, G Attending Clinician Vidhi GARRIDO Attending Clinician VIDHI Attending Clinician Unavailable Cami REICH Attending Clinician CAMI Attending Clinician Unavailable MAXWELL Attending Clinician Unavailable Maxwell ISNCLAIR Attending Clinician Jay REICH V. Attending Clinician Tanna THOMPSON Attending Clinician Unavailable Maicol REICH Attending Clinician Thomas POWELL M Attending Clinician Poonam REICH Attending Clinician Hans PharmD Attending Clinician Ken REICH Attending Clinician KEN Attending Clinician Unavailable Sweta TIM Attending Clinician Unavailable Violette Borja MD Attending Clinician Unavailable Malia REICH Attending Clinician Elza REICH Attending Clinician MALIA Attending Clinician Unavailable Nishant PharmD Attending Clinician Nicolette Paris PharmD Attending Clinician Cedric TIM Attending Clinician Unavailable Emma REICH Attending Clinician Tito RN, A Attending Clinician Unavailable Garret REICH, C Attending Clinician Micky REICH, April Attending Clinician Jacob REICH Attending Clinician Enio REICH Attending Clinician Ralph TIM, C Attending Clinician Unavailable Derik Lowe MD Attending Clinician Akila REICH Attending Clinician Edison DIE SINKER APPRENTICE, T Attending Clinician Samantha [facility] Attending Clinician Unavailable Lashanda REICH Attending Clinician Payers Payer Name Policy Type Policy Effective Date Expiration Date Sour ce Number [facility] [id number] 2017 MD Coy on MEDICARE 00:00:00 [facility] MEDICARE [id number] 2017-[address] [address], [place] [address]Medicare Problems Condition Condition Condition Status Onset Resolution Last Treating Co mments Source Name Details Category Date Date Treatment Clinician Date Pleural Pleural Disease Active Last effusion effusion 3-21 Assessmen And erso 00:00: t & Plan: n 00 Formattin g of this note might be different from the original. Right pleural effusion has resolved and it was most likely caused by fluid overload. No need for intervent ion at this time. Chronic Chronic Disease Active Last obstructiv obstructiv 5-29 Assessmen Anderso e e 00:00: t & Plan: n pulmonary pulmonary 00 Formattin disease disease g of this note might be different from the original. No clinical evidence of exacerbat ion. Continue with Trelegy Ellipta one puff daily. 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 Patient currently on nivolumab .Recent PET-CT dated suggest enlargeme nt of the left lung lesion. 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 07/05 Regulator y ImportLas t Assessmen t & Plan: Formattin g of this note might be different from the original. Patient has received local cardiolog y evaluatio n for history of atrial fibrillat ion, abdominal aortic aneurysm. Dr. 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 The patient has been on surveilla nce since 2014 for a 1.4 cm right renal mass. He is under the care of his local physician . Allergies, Adverse Reactions, Alerts This patient has no known allergies or adverse reactions. Family History Family Member Diagnosis Comments Start Date Stop Date Source Natural brother Bladder Cancer MD Sophia rocha Granddaughter -Other cancer MD Scar son Social History Social Habit Start Date Stop Date Quantity Comments Source History of tobacco Cigarette Smoker MD Moreno use History [facility] MD Moreno Alcohol Frequency History [facility] MD Moreno Alcohol Std Drinks History [facility] MD Moreno Alcohol Binge Exposure to Not sure MD Moreno SARS-CoV-2 (event) Alcohol intake 2021-09-30 2021-09-30 Current drinker of MD Moreno 00:00:00 00:00:00 alcohol (finding) Tobacco use and 2016-06-16 2016-06-16 Former smokeless MD Moreno exposure 00:00:00 00:00:00 tobacco user History SDOH 2016-06-16 2016-06-16 Social MD Moreno Alcohol Comment 00:00:00 00:00:00 Tobacco Comment 2016-06-16 2016-06-16 quit at age 51 MD Sophia rocha 00:00:00 00:00:00 Sex [birth year] MD Luciano on 00:00:00 00:00:00 Smoking Status Start Date Stop Date Source Ex-smoker 2016-06-16 00:00:00 2016-06-16 00:00:00 Scar son Medications Ordered Filled Start Stop Current Ordering Indication Dosage Frequency Signature Comments Components Source Medication Medication Date Date Medication? Clinician (SIG) Name Name atorvastati Yes 40mg Take 40 mg MD n (LIPITOR) 3-21 by mouth Zbigniew rso 40 mg 14:04: at n tablet 17 bedtime. apixaban Yes 2.5mg Take 2.5 MD (ELIQUIS) 3-21 mg by Anderso 2.5 mg 14:04: mouth n tablet 17 twice daily. finasteride Yes 5mg Take 5 mg M D (PROSCAR) 5 3-21 by mouth Zbigniew rso mg tablet 14:04: daily. n 17 fluticasone Yes 2{spray Inhale 2 MD propionate 3-21 } sprays Anderso (FLONASE) 14:04: into each n 50 17 nostril mcg/spray daily. nasal spray losartan-hy Yes hypertensio 1{tbl} Take 1 MD drochloroth 3-21 n tablet by And erso iazide 14:04: mouth n (HYZAAR) 17 daily. 100-25 mg per tablet benzonatate Yes 1{capsu Take 1 M D (TESSALON) 3-02 le} capsule by And erso 100 mg 00:00: mouth 4 n capsule 00 (four) times a day as needed for cough. methylPREDN Yes Squamous Take as MD ISolone 2-15 cell directed Anderso (Medrol, 00:00: carcinoma, (Direction n Bob,) 4 mg 00 NOS of s on tablet lower lobe, blister lung <Left> pack) mupirocin 2020-10 Yes Squamous Apply MD (BACTROBAN) 2-27 cell topically And erso 2% ointment 00:00: carcinoma to n 00 of scalp affected area(s) twice daily. cephalexin 2020-10- No Squamous 500mg Take 1 MD (KEFLEX) 2-27 01-07 cell capsule Anderso 500 mg 00:00: 05:59 carcinoma (500 mg) n capsule 00 :00 of scalp by mouth twice daily for 10 days. azithromyci 2020-10- No MD n 1-11 12-15 Anderso (ZITHROMAX) 00:00: 00:00 n 250 mg 00 :00 tablet carvedilol 2020-10 Yes 12.5mg 12.5 mg MD (COREG) 1-04 twice Anderso 12.5 mg 00:00: daily. n tablet 00 losartan-hy 2020- No 1{tbl} Take 1 M D drochloroth 7 05-30 tablet by An derso iazide 21:10: 00:00 mouth n (HYZAAR) 55 :00 daily. 100-25 mg per tablet losartan-hy 2020- No 1{tbl} Take 1 M D drochloroth 7-21 04-07 tablet by An derso iazide 21:10: 00:00 mouth n (HYZAAR) 54 :00 daily. 100-12.5 mg per tablet azithromyci 2020- No TAKE 2 MD n 6-17 08-17 TABLETS BY Anderso (ZITHROMAX) 00:00: 00:00 MOUTH n 250 mg 00 :00 TODAY, tablet THEN TAKE 1 TABLET DAILY FOR 4 DAYS mupirocin Yes Basal cell Apply M D (BACTROBAN) 6-16 carcinoma - topically Anderso 2% ointment 00:00: primary to n 00 affected area(s) twice daily. furosemide Yes 1{tbl} Take 1 MD (LASIX) 20 1-19 tablet by Zbigniew rso mg tablet 00:00: mouth n 00 every morning. ALPRAZolam Yes 1{tbl} Take 1 MD (XANAX) 1 1-12 tablet by Scar so mg tablet 00:00: mouth n 00 nightly as needed for sleep. carvedilol 2019-10- No 1{tbl} Take 1 MD (COREG) 25 2-16 12-15 tablet by And erso mg tablet 00:00: 00:00 mouth n 00 :00 twice daily. Trelegy Yes 1 PUFF BY Ellipta 6-15 MOUTH Anderso 100-62.5-25 00:00: DAILY, n mcg dsdv 00 RINSE MOUTH WITH WATER AFTER USE Immunizations Ordered Immunization Filled Immunization Date Status Commen ts Source Name Name Moderna SARS-CoV-2 2021-12-01 Completed MD And erson Vaccination 00:00:00 Moderna SARS-CoV-2 2021-11-11 Completed MD And erson Booster Vaccination 00:00:00 Moderna SARS-CoV-2 2021-06-20 Completed MD And erson Vaccination 00:00:00 Influenza Whole 2021-06-12 Completed MD Luciano on 00:00:00 Moderna SARS-CoV-2 2020-11-15 Completed MD And erson Vaccination 00:00:00 Moderna SARS-CoV-2 2020-10-18 Completed MD And erson Vaccination 00:00:00 Tdap 2019-10-15 Completed MD Moreno 00:00:00 Influenza, 2019-08-13 Completed MD Moreno Quadrivalent 00:00:00 Influenza, 2018-08-31 Completed MD Moreno Unspecified 00:00:00 Vital Signs Vital Name Observation Time Observation Value Comments Source Systolic blood pressure 2021-12-23 19:02:00 129 mm[Hg] MD Moreno Diastolic blood pressure 2021-12-23 19:02:00 71 mm[Hg] MD Moreno Heart rate 2021-12-23 19:02:00 65 /min MD Scar savage Body temperature 2021-12-23 19:02:00 36.5 Shobha MD Ralph ott Respiratory rate 2021-12-23 19:02:00 18 /min MD Ralph ott Body weight 2021-12-23 19:02:00 92.5 kg MD Scar savage BMI 2021-12-23 19:02:00 27.62 kg/m2 MD Scar savage Oxygen saturation in 2021-12-23 19:02:00 98 /min MD Moreno Arterial blood by Pulse oximetry Body height 2021-03-06 12:07:00 183 cm MD Scar savage Procedures Procedure Date / Time Performed Performing Clinician [facility] e ECHOCARDIOGRAM 2D COMPLETE 2021-12-23 20:33:47 Nicolette Morataya MD XR CHEST 2 VW 2021-12-23 18:06:47 Lauren Arreola MD PROTHROMBIN TIME 2021-12-23 18:05:00 Lauren Arreola MD Anderso n PETCT SUBSEQUENT TREATMENT 2021-12-09 17:36:49 Kaitlin Thompson MD STRATEGY COMPLETE BLOOD COUNT W/ 2021-12-09 15:00:31 Kaitlin Thompson DIFFERENTIAL COMPREHENSIVE METABOLIC PANEL 2021-12-09 15:00:31 Nacho Thompson MD MAGNESIUM LEVEL 2021-12-09 15:00:31 Kaitlin Thompson MD on THYROID STIMULATING HORMONE 2021-12-09 15:00:31 Kaitlin Thompson MD FREE THYROXINE 2021-12-09 15:00:31 Kaitlin Thompson MD on Results CBC 2021-12-09 15:00:31 Kaitlin Thompson MD on MANUAL DIFFERENTIAL 2021-12-09 15:00:31 Kaitlin Thompson MD GLUCOSE LEVEL 2021-12-09 15:00:31 Kaitlin Thompson MD on BLOOD UREA NITROGEN 2021-12-09 15:00:31 Kaitlin Thompson MD ELECTROLYTE PANEL 2021-12-09 15:00:31 Kaitlin Thompson MD rson SERUM CREATININE 2021-12-09 15:00:31 Kaitlin Thompson MD Scar son .GLOMERULAR FILTRATION RATE 2021-12-09 15:00:31 Kaitlin Thompson MD CALCIUM LEVEL TOTAL 2021-12-09 15:00:31 Kaitlin Thompson MD ALBUMIN LEVEL 2021-12-09 15:00:31 Kaitlin Thompson MD on ALKALINE PHOSPHATASE 2021-12-09 15:00:31 Kaitlin Thompson MD ALANINE AMINOTRANSFERASE 2021-12-09 15:00:31 Kaitlin Thompson MD ASPARTATE AMINOTRANSFERASE 2021-12-09 15:00:31 Kaitlin Thompson MD TOTAL PROTEIN 2021-12-09 15:00:31 Kaitlin Thompson MD on FRACTIONATED BILIRUBIN 2021-12-09 15:00:31 Kaitlin Thompson MD GENERAL LABORATORY ADD ON TEST 2021-11-13 21:45:00 Triny Morataya MD COMPLETE BLOOD COUNT W/ 2021-11-13 14:54:00 Nicolette Morataya MD DIFFERENTIAL COMPREHENSIVE METABOLIC PANEL 2021-11-13 14:54:00 Cass Morataya MD MAGNESIUM LEVEL 2021-11-13 14:54:00 Nicolette Morataya MD GLUCOSE LEVEL 2021-11-13 14:54:00 Nicolette Morataya MD Andjaquelin sol BLOOD UREA NITROGEN 2021-11-13 14:54:00 Nicolette Morataya MD And erslast ELECTROLYTE PANEL 2021-11-13 14:54:00 Nicolette Morataya MD Scarchris savage SERUM CREATININE 2021-11-13 14:54:00 Nicolette Morataya MD on .GLOMERULAR FILTRATION RATE 2021-11-13 14:54:00 Thu Morataya MD CALCIUM LEVEL TOTAL 2021-11-13 14:54:00 Nicolette Morataya MD And erson ALBUMIN LEVEL 2021-11-13 14:54:00 Nicolette Morataya MD ALKALINE PHOSPHATASE 2021-11-13 14:54:00 Nicolette Morataya MD ALANINE AMINOTRANSFERASE 2021-11-13 14:54:00 Nicolette Morataya ASPARTATE AMINOTRANSFERASE 2021-11-13 14:54:00 Nicolette Morataya MD TOTAL PROTEIN 2021-11-13 14:54:00 Nicolette Morataya MD Andjaquelin sol FRACTIONATED BILIRUBIN 2021-11-13 14:54:00 Nicolette Morataya MD Results CBC 2021-11-13 14:54:00 Nicolette Morataya MD Andgriso ebenezer MANUAL DIFFERENTIAL 2021-11-13 14:54:00 Nicolette Morataya MD And erson FREE THYROXINE 2021-11-13 14:54:00 Nicolette Morataya MD THYROID STIMULATING HORMONE 2021-11-13 14:54:00 Thu Morataya MD COMPLETE BLOOD COUNT W/ 2021-10-15 16:56:00 Kaitlin Thompson DIFFERENTIAL COMPREHENSIVE METABOLIC PANEL 2021-10-15 16:56:00 Nacho Thompson MD MAGNESIUM LEVEL 2021-10-15 16:56:00 Kaitlin Thompson MD on THYROID STIMULATING HORMONE 2021-10-15 16:56:00 Kaitlin Thompson MD FREE THYROXINE 2021-10-15 16:56:00 Kaitlin Thompson MD on Results CBC 2021-10-15 16:56:00 Kaitlin Thompson MD on MANUAL DIFFERENTIAL 2021-10-15 16:56:00 Kaitlin Thompson MD GLUCOSE LEVEL 2021-10-15 16:56:00 Kaitlin Thompson MD on BLOOD UREA NITROGEN 2021-10-15 16:56:00 Kaitlin Thompson MD ELECTROLYTE PANEL 2021-10-15 16:56:00 Kaitlin Thompson MD Zbigniew rson SERUM CREATININE 2021-10-15 16:56:00 Kaitlin Thompson MD Scar son .GLOMERULAR FILTRATION RATE 2021-10-15 16:56:00 Kaitlin Thompson MD CALCIUM LEVEL TOTAL 2021-10-15 16:56:00 Kaitlin Thompson MD ALBUMIN LEVEL 2021-10-15 16:56:00 Kaitlin Thompson MD on ALKALINE PHOSPHATASE 2021-10-15 16:56:00 Kaitlin Thompson MD ALANINE AMINOTRANSFERASE 2021-10-15 16:56:00 Kaitlin Thompson MD ASPARTATE AMINOTRANSFERASE 2021-10-15 16:56:00 Kaitlin Thompson MD TOTAL PROTEIN 2021-10-15 16:56:00 Kaitlin Thompson MD on FRACTIONATED BILIRUBIN 2021-10-15 16:56:[address] CHEST W CONTRAST 2021-10-15 15:56:00 Nicolette Morataya MD And erson POC CREATININE 2021-10-15 15:21:00 Nicolette Morataya MD n PATHOLOGY BIOPSY INTERPRETATION 2021-09-30 14:31:00 eMre Rogers MD EXCISION 2021-09-30 14:30:02 Claudia Rogers MD EXCISION 2021-09-30 14:29:55 Claudia Rogers MD [facility] SITE 1 2021-09-30 14:29:50 Claudia Rogers MD [facility] SITE 1 2021-09-30 14:29:44 Claudia Rogers MD COMPLETE BLOOD COUNT W/ 2021-09-18 16:30:00 Kaitlin Thompson DIFFERENTIAL COMPREHENSIVE METABOLIC PANEL 2021-09-18 16:30:00 Nacho Thompson MD MAGNESIUM LEVEL 2021-09-18 16:30:00 Kaitlin Thompson MD on THYROID STIMULATING HORMONE 2021-09-18 16:30:00 Kaitlin Thompson MD FREE THYROXINE 2021-09-18 16:30:00 Kaitlin Thompson MD on Results CBC 2021-09-18 16:30:00 Kaitlin Thompson MD on MANUAL DIFFERENTIAL 2021-09-18 16:30:00 Kaitlin Thompson MD GLUCOSE LEVEL 2021-09-18 16:30:00 Kaitlin Thompson MD on BLOOD UREA NITROGEN 2021-09-18 16:30:00 Kaitlin Thompson MD ELECTROLYTE PANEL 2021-09-18 16:30:00 Kaitlin Thompson MD rslast SERUM CREATININE 2021-09-18 16:30:00 Kaitlin Thompson MD Scar son .GLOMERULAR FILTRATION RATE 2021-09-18 16:30:00 Kaitlin Thompson MD CALCIUM LEVEL TOTAL 2021-09-18 16:30:00 Kaitlin Thompson MD ALBUMIN LEVEL 2021-09-18 16:30:00 Kaitlin Thompson MD on ALKALINE PHOSPHATASE 2021-09-18 16:30:00 Kaitlin Thompson MD ALANINE AMINOTRANSFERASE 2021-09-18 16:30:00 FossKaitlin rome MD ASPARTATE AMINOTRANSFERASE 2021-09-18 16:30:00 Kaitlin Thompson MD TOTAL PROTEIN 2021-09-18 16:30:00 Jay, Kaitlin Luciano on FRACTIONATED BILIRUBIN 2021-09-18 16:30:00 Kaitlin Thompson MD PATHOLOGY BIOPSY INTERPRETATION 2021-08-21 16:17:00 Me scott Bertrand MD CT CHEST W CONTRAST 2021-08-20 16:32:00 Kaitlin Thompson MD POC CREATININE 2021-08-20 16:03:00 Provider, Unknown MD Gigi sol COMPLETE BLOOD COUNT W/ 2021-08-20 15:23:36 Kaitlin Thompson DIFFERENTIAL COMPREHENSIVE METABOLIC PANEL 2021-08-20 15:23:36 Nacho Thompson MD MAGNESIUM LEVEL 2021-08-20 15:23:36 Kaitlin Thompson MD on THYROID STIMULATING HORMONE 2021-08-20 15:23:36 Kaitlin Thompson MD FREE THYROXINE 2021-08-20 15:23:36 Kaitlin Thompson MD on Results CBC 2021-08-20 15:23:36 Kaitlin Thompson MD on MANUAL DIFFERENTIAL 2021-08-20 15:23:36 Kaitlin Thompson MD GLUCOSE LEVEL 2021-08-20 15:23:36 Kaitlin Thompson MD on BLOOD UREA NITROGEN 2021-08-20 15:23:36 Kaitlin Thompson MD ELECTROLYTE PANEL 2021-08-20 15:23:36 Kaitlin Thompson MD rslast SERUM CREATININE 2021-08-20 15:23:36 Kaitlin Thompson MD Scar son .GLOMERULAR FILTRATION RATE 2021-08-20 15:23:36 Kaitlin Thompson MD CALCIUM LEVEL TOTAL 2021-08-20 15:23:36 Kaitlin Thompson MDson ALBUMIN LEVEL 2021-08-20 15:23:36 Kaitlin Thompson MD on ALKALINE PHOSPHATASE 2021-08-20 15:23:36 Kaitlin Thompson MD nderson ALANINE AMINOTRANSFERASE 2021-08-20 15:23:36 ErrolellaKaitlin MD ASPARTATE AMINOTRANSFERASE 2021-08-20 15:23:36 Kaitlin Thompson MD TOTAL PROTEIN 2021-08-20 15:23:36 Kaitlin Thompson MD on FRACTIONATED BILIRUBIN 2021-08-20 15:23:36 Kaitlin Thompson MD COMPLETE BLOOD COUNT W/ 2021-07-24 19:10:00 Kaitlin Thompson DIFFERENTIAL COMPREHENSIVE METABOLIC PANEL 2021-07-24 19:10:00 Nacho Thompson MD MAGNESIUM LEVEL 2021-07-24 19:10:00 Kaitlin Thompson MD on Results CBC 2021-07-24 19:10:00 Kaitlin Thompson MD on MANUAL DIFFERENTIAL 2021-07-24 19:10:00 Kaitlin Thompson MD GLUCOSE LEVEL 2021-07-24 19:10:00 Kaitlin Thompson MD on BLOOD UREA NITROGEN 2021-07-24 19:10:00 Kaitlin Thompson MDson ELECTROLYTE PANEL 2021-07-24 19:10:00 Kaitlin Thompson MD Zbigniew rson SERUM CREATININE 2021-07-24 19:10:00 Kaitlin Thompson MD Scar son .GLOMERULAR FILTRATION RATE 2021-07-24 19:10:00 Kaitlin Thompson MD CALCIUM LEVEL TOTAL 2021-07-24 19:10:00 Kaitlin Thompson MD ALBUMIN LEVEL 2021-07-24 19:10:00 Kaitlin Thompson MD on ALKALINE PHOSPHATASE 2021-07-24 19:10:00 Kaitlin Thompson MD ALANINE AMINOTRANSFERASE 2021-07-24 19:10:00 Kaitlin Thompson MD ASPARTATE AMINOTRANSFERASE 2021-07-24 19:10:00 Kaitlin Thompson MD TOTAL PROTEIN 2021-07-24 19:10:00 Kaitlin Thompson MD on FRACTIONATED BILIRUBIN 2021-07-24 19:10:[address] CHEST ABDOMEN W CONTRAST 2021-06-25 16:10:57 Thu Morataya MD COMPLETE BLOOD COUNT W/ 2021-06-25 13:36:16 Kaitlin Thompson DIFFERENTIAL COMPREHENSIVE METABOLIC PANEL 2021-06-25 13:36:16 Nacho Thompson MD MAGNESIUM LEVEL 2021-06-25 13:36:16 Kaitlin Thompson MD on THYROID STIMULATING HORMONE 2021-06-25 13:36:16 Kaitlin Thompson MD FREE THYROXINE 2021-06-25 13:36:16 Kaitlin Thompson MD on Results CBC 2021-06-25 13:36:16 Kaitlin Thompson MD on MANUAL DIFFERENTIAL 2021-06-25 13:36:16 Kaitlin Thompson MD GLUCOSE LEVEL 2021-06-25 13:36:16 Kaitlin Thompson MD on BLOOD UREA NITROGEN 2021-06-25 13:36:16 Kaitlin Thompson MD ELECTROLYTE PANEL 2021-06-25 13:36:16 Kaitlin Thompson MD rson SERUM CREATININE 2021-06-25 13:36:16 Kaitlin Thompson MD Scar son .GLOMERULAR FILTRATION RATE 2021-06-25 13:36:16 Kaitlin Thompson MD CALCIUM LEVEL TOTAL 2021-06-25 13:36:16 Kaitlin Thompson MD ALBUMIN LEVEL 2021-06-25 13:36:16 Kaitlin Thompson MD on ALKALINE PHOSPHATASE 2021-06-25 13:36:16 Kaitlin Thompson MD ALANINE AMINOTRANSFERASE 2021-06-25 13:36:16 Kaitlin Thompson MD ASPARTATE AMINOTRANSFERASE 2021-06-25 13:36:16 FossellaKaitlin MD TOTAL PROTEIN 2021-06-25 13:36:16 Fossella, Kaitlin Luciano on FRACTIONATED BILIRUBIN 2021-06-25 13:36:16 FossKaitlin rome MD THYROID STIMULATING HORMONE 2021-05-21 15:41:00 Fossella, Kaitlin Moreno FREE THYROXINE 2021-05-21 15:41:00 Fossella, Kaitlin Luciano on COMPLETE BLOOD COUNT W/ 2021-05-21 15:41:00 Fossella, Kaitlin Moreno DIFFERENTIAL COMPREHENSIVE METABOLIC PANEL 2021-05-21 15:41:00 Fossella, Nacho Moreno MAGNESIUM LEVEL 2021-05-21 15:41:00 Fossella, Kaitlin Luciano on Results CBC 2021-05-21 15:41:00 Fossella, Kaitlin Lcuiano on MANUAL DIFFERENTIAL 2021-05-21 15:41:00 Fossella, Kaitlin rocha GLUCOSE LEVEL 2021-05-21 15:41:00 Fossella, Kaitlin Luciano on BLOOD UREA NITROGEN 2021-05-21 15:41:00 Fossella, Kaitlin rocha ELECTROLYTE PANEL 2021-05-21 15:41:00 Fossella, Kaitlin huff SERUM CREATININE 2021-05-21 15:41:00 Fossella, Kaitlin Cisse MD Scar son .GLOMERULAR FILTRATION RATE 2021-05-21 15:41:00 Fosswild, Kaitlin Moreno CALCIUM LEVEL TOTAL 2021-05-21 15:41:00 Fossella, Kaitlin rocha ALBUMIN LEVEL 2021-05-21 15:41:00 Fossella, Kaitlin Luciano on ALKALINE PHOSPHATASE 2021-05-21 15:41:00 Fossella, Kaitlin ott ALANINE AMINOTRANSFERASE 2021-05-21 15:41:00 FossellaKaitlin MD ASPARTATE AMINOTRANSFERASE 2021-05-21 15:41:00 FossKaitlin rome MD TOTAL PROTEIN 2021-05-21 15:41:00 Fossella, Kaitlin Luciano on FRACTIONATED BILIRUBIN 2021-05-21 15:41:[address] CHEST ABDOMEN W CONTRAST 2021-04-23 16:32:37 Thu Morataya MD COMPREHENSIVE METABOLIC PANEL 2021-04-23 14:04:00 Nacho Thompson MD MAGNESIUM LEVEL 2021-04-23 14:04:00 Kaitlin Thompson MD on PHOSPHORUS LEVEL 2021-04-23 14:04:00 Kaitlin Thompson MD Scar son THYROID STIMULATING HORMONE 2021-04-23 14:04:00 Kaitlin Thompson MD FREE THYROXINE 2021-04-23 14:04:00 FossellaKaitlin MD on COMPLETE BLOOD COUNT W/ 2021-04-23 14:04:00 Kaitlin Thompson DIFFERENTIAL GLUCOSE LEVEL 2021-04-23 14:04:00 Kaitlin Thompson MD on BLOOD UREA NITROGEN 2021-04-23 14:04:00 Kaitlin Thompson MD ELECTROLYTE PANEL 2021-04-23 14:04:00 Kaitlin Thompson MD rslast SERUM CREATININE 2021-04-23 14:04:00 Kaitlin Thompson MD Scar son .GLOMERULAR FILTRATION RATE 2021-04-23 14:04:00 Kaitlin Thompson MD CALCIUM LEVEL TOTAL 2021-04-23 14:04:00 Kaitlin Thompson MD ALBUMIN LEVEL 2021-04-23 14:04:00 Kaitlin Thompson MD on ALKALINE PHOSPHATASE 2021-04-23 14:04:00 Kaitlin Thompson MD ALANINE AMINOTRANSFERASE 2021-04-23 14:04:00 FossKaitlin rome MD ASPARTATE AMINOTRANSFERASE 2021-04-23 14:04:00 Kaitlin Thompson MD TOTAL PROTEIN 2021-04-23 14:04:00 Kaitlin Thompson MD on FRACTIONATED BILIRUBIN 2021-04-23 14:04:00 Kaitlin Thompson MD Results CBC 2021-04-23 14:04:00 Kaitlin Thompson MD on MANUAL DIFFERENTIAL 2021-04-23 14:04:00 Kaitlin Thompson MD COMPLETE BLOOD COUNT W/ 2021-03-27 19:10:00 FossellaKaitlin DIFFERENTIAL COMPREHENSIVE METABOLIC PANEL 2021-03-27 19:10:00 Nacho Thompson MD MAGNESIUM LEVEL 2021-03-27 19:10:00 FossellaKaitlin MD on PHOSPHORUS LEVEL 2021-03-27 19:10:00 Kaitlin Thompson MD Scar son THYROID STIMULATING HORMONE 2021-03-27 19:10:00 Kaitlin Thompson MD FREE THYROXINE 2021-03-27 19:10:00 FossellaKaitlin MD on URIC ACID 2021-03-27 19:10:00 Fossella, Kaitlin Luciano on Results CBC 2021-03-27 19:10:00 Fossella, Kaitlin Luciano on MANUAL DIFFERENTIAL 2021-03-27 19:10:00 FossKaitlin rome MD GLUCOSE LEVEL 2021-03-27 19:10:00 FossellaKaitlin MD on BLOOD UREA NITROGEN 2021-03-27 19:10:00 Kaitlin Thompson MD ELECTROLYTE PANEL 2021-03-27 19:10:00 FossellaKaitlin MD SERUM CREATININE 2021-03-27 19:10:00 FossellaKaitlin MD Scar son .GLOMERULAR FILTRATION RATE 2021-03-27 19:10:00 Kaitlin Thompson MD CALCIUM LEVEL TOTAL 2021-03-27 19:10:00 Kaitlin Thompson MD ALBUMIN LEVEL 2021-03-27 19:10:00 Kaitlin Thompson MD on ALKALINE PHOSPHATASE 2021-03-27 19:10:00 FossellaKaitlin MD ALANINE AMINOTRANSFERASE 2021-03-27 19:10:00 Kaitlin Thompson MD ASPARTATE AMINOTRANSFERASE 2021-03-27 19:10:00 Kaitlin Thompson MD TOTAL PROTEIN 2021-03-27 19:10:00 Kaitlin Thompson MD on FRACTIONATED BILIRUBIN 2021-03-27 19:10:00 Kaitlin Thompson MD [facility] SITE 2 2021-03-20 15:47:23 Zurdo Walker MD MO[facility] SITE 1 2021-03-20 15:45:47 Zurdo Walker MD PATHOLOGY BIOPSY INTERPRETATION 2021-03-06 15:20:00 Me scott Bertrand MD PETCT SUBSEQUENT TREATMENT 2021-03-06 14:00:22 Kaitlin Thompson MD STRATEGY POC GLUCOSE SCREEN 2021-03-06 12:22:00 Jay, Kaitlin Dietz COMPLETE BLOOD COUNT W/ 2021-03-06 11:48:00 FossellaKaitlin DIFFERENTIAL COMPREHENSIVE METABOLIC PANEL 2021-03-06 11:48:00 Fossella, Nacho Moreno MAGNESIUM LEVEL 2021-03-06 11:48:00 Fossella, Kaitlin Luciano on PHOSPHORUS LEVEL 2021-03-06 11:48:00 Fossella, Kaitlin Cisse MD Scar son THYROID STIMULATING HORMONE 2021-03-06 11:48:00 FossKaitlin rome MD FREE THYROXINE 2021-03-06 11:48:00 Fossella, Kaitlin Luciano on Results CBC 2021-03-06 11:48:00 Fossella, Kaitlin Luciano on MANUAL DIFFERENTIAL 2021-03-06 11:48:00 Fossella, Kaitlin rocha GLUCOSE LEVEL 2021-03-06 11:48:00 Fossella, Kaitlin Luciano on BLOOD UREA NITROGEN 2021-03-06 11:48:00 Fosswild, Kaitlin rocha ELECTROLYTE PANEL 2021-03-06 11:48:00 FossellaKaitlin MD rson SERUM CREATININE 2021-03-06 11:48:00 Fossella, Kaitlin Sommerer son .GLOMERULAR FILTRATION RATE 2021-03-06 11:48:00 Kaitlin Thompson MD CALCIUM LEVEL TOTAL 2021-03-06 11:48:00 Kaitlin Thompson MD ALBUMIN LEVEL 2021-03-06 11:48:00 Fossella, Kaitlin Luciano on ALKALINE PHOSPHATASE 2021-03-06 11:48:00 Fossella, Kaitlin ott ALANINE AMINOTRANSFERASE 2021-03-06 11:48:00 FossellaKaitlin MD ASPARTATE AMINOTRANSFERASE 2021-03-06 11:48:00 Kaitlin Thompson MD TOTAL PROTEIN 2021-03-06 11:48:00 Kaitlin Thompsoners on FRACTIONATED BILIRUBIN 2021-03-06 11:48:00 Kaitlin Thompson MD GENERAL LABORATORY ADD ON TEST 2021-03-03 13:15:00 Adama Steen MD BASIC METABOLIC PANEL, CALCIUM 2021-03-03 12:51:00 Adama Steen MD TOTAL MAGNESIUM LEVEL 2021-03-03 12:51:00 Adama Steen MD PHOSPHORUS LEVEL 2021-03-03 12:51:00 Adama Steen MD GLUCOSE LEVEL 2021-03-03 12:51:00 Adama Steen MD BLOOD UREA NITROGEN 2021-03-03 12:51:00 Adama Steen MD Scar son ELECTROLYTE PANEL 2021-03-03 12:51:00 Adama Steen MD SERUM CREATININE 2021-03-03 12:51:00 Adama Steen MD .GLOMERULAR FILTRATION RATE 2021-03-03 12:51:00 Adama Steen MD CALCIUM LEVEL TOTAL 2021-03-03 12:51:00 Adama Steen MD son US LEG VENOUS DOPPLER RIGHT 2021-03-02 22:15:17 Adama Steen MD BASIC METABOLIC PANEL, CALCIUM 2021-03-02 19:42:00 Je Hartmann MD TOTAL GLUCOSE LEVEL 2021-03-02 19:42:00 Martell Garcia MD BLOOD UREA NITROGEN 2021-03-02 19:42:00 Martell Garcia MD son ELECTROLYTE PANEL 2021-03-02 19:42:00 Martell Garcia MDo n SERUM CREATININE 2021-03-02 19:42:00 Martell Garcia MD .GLOMERULAR FILTRATION RATE 2021-03-02 19:42:00 Martell Garcia MD CALCIUM LEVEL TOTAL 2021-03-02 19:42:00 Martell Garcia MD son BASIC METABOLIC PANEL, CALCIUM 2021-03-02 10:43:00 MD Josh Strong TOTAL Jose F Daniel ADRENOCORTICOTROPIC HORMONE 2021-03-02 10:43:00 Noe James MD FOLLICLE STIMULATING HORMONE 2021-03-02 10:43:00 Noe James MD LEVEL PROLACTIN 2021-03-02 10:43:00 Noe James MD LUTEINIZING HORMONE 2021-03-02 10:43:00 [facility] GLUCOSE LEVEL 2021-03-02 10:43:00 Martell Garcia MD BLOOD UREA NITROGEN 2021-03-02 10:43:00 Martell Garcia MD ELECTROLYTE PANEL 2021-03-02 10:43:00 Martell Garcia MD SERUM CREATININE 2021-03-02 10:43:00 Martell Garcia MD .GLOMERULAR FILTRATION RATE 2021-03-02 10:43:00 Martell Garcia MD CALCIUM LEVEL TOTAL 2021-03-02 10:43:00 Martell Garcia MD SODIUM URINE 2021-03-02 10:12:00 Wade Weeks MD CHLORIDE LEVEL URINE 2021-03-02 10:12:00 Wade Weeks MD Zbigniew rson POTASSIUM LEVEL URINE 2021-03-02 10:12:00 Wade Weeks MD And erson OSMOLALITY URINE 2021-03-02 10:12:00 Wade Weeks MD URINALYSIS MICROSCOPIC 2021-03-02 10:12:00 Wade Weeks MDson URINALYSIS WITH MICROSCOPIC IF 2021-03-02 10:12:00 Adama Steen MD INDICATED BASIC METABOLIC PANEL, CALCIUM 2021-03-02 06:06:00 MD Josh Strong TOTAL Jose F Daniel GLUCOSE LEVEL 2021-03-02 06:06:00 Martell Garcia MD BLOOD UREA NITROGEN 2021-03-02 06:06:00 Martell Garcia MD ELECTROLYTE PANEL 2021-03-02 06:06:00 Martell Garcia MD SERUM CREATININE 2021-03-02 06:06:00 Martell Garcia MD .GLOMERULAR FILTRATION RATE 2021-03-02 06:06:00 Martell Garcia MD CALCIUM LEVEL TOTAL 2021-03-02 06:06:00 Martell aGrcia MD THYROID STIMULATING HORMONE 2021-03-02 02:24:00 Wade Weeks MD FREE THYROXINE 2021-03-02 02:24:00 Wade Weeks MD OSMOLALITY 2021-03-02 02:24:00 Wade Weeks MD URIC ACID 2021-03-02 02:24:00 Wade Weeks MD BASIC METABOLIC PANEL, CALCIUM 2021-03-02 02:24:00 MD Josh Strong TOTAL Jose F Daniel GLUCOSE LEVEL 2021-03-02 02:24:00 Martell Garcia MD BLOOD UREA NITROGEN 2021-03-02 02:24:00 Martell Garcia MD ELECTROLYTE PANEL 2021-03-02 02:24:00 Martell Garcia MD SERUM CREATININE 2021-03-02 02:24:00 Martell Garcia MD .GLOMERULAR FILTRATION RATE 2021-03-02 02:24:00 Martell Garcia MD CALCIUM LEVEL TOTAL 2021-03-02 02:24:00 Martell Garcia MD son URINE CULTURE 2021-03-01 23:19:00 Elizabeth Shine MD on URINALYSIS WITH MICROSCOPIC IF 2021-03-01 23:19:00 Ang Shine MD INDICATED OSMOLALITY URINE 2021-03-01 23:19:00 Wade Weeks MD SODIUM URINE 2021-03-01 23:19:00 Wade Weeks MD INFLUENZA A/B + COVID-19 2021-03-01 21:28:00 Wade Weeks MD ASYMPTOMATIC-L COMPLETE BLOOD COUNT W/ 2021-03-01 21:28:00 Elizabeth Shine DIFFERENTIAL COMPREHENSIVE METABOLIC PANEL 2021-03-01 21:28:00 Yaritza Shine MD MAGNESIUM LEVEL 2021-03-01 21:28:00 Elizabeth Shine MD on PHOSPHORUS LEVEL 2021-03-01 21:28:00 Elizabeth Shine MD Scar son LACTATE DEHYDROGENASE 2021-03-01 21:28:00 Elizabeth Shine MD AMYLASE LEVEL 2021-03-01 21:28:00 Elizabeth Shine MD Mustapha on LIPASE LEVEL 2021-03-01 21:28:00 Elizabeth Shine MD Mustapha on Results CBC 2021-03-01 21:28:00 Elizabeth Shine MD Mustapha on MANUAL DIFFERENTIAL 2021-03-01 21:28:00 Elizabeth Shine MDson GLUCOSE LEVEL 2021-03-01 21:28:00 Elizabeth Shine MD Mustapha on BLOOD UREA NITROGEN 2021-03-01 21:28:00 Elizabeth Shine MD ELECTROLYTE PANEL 2021-03-01 21:28:00 Elizabeth Shine MD Zbigniew rson SERUM CREATININE 2021-03-01 21:28:00 Elizabeth Shine MD Scar son .GLOMERULAR FILTRATION RATE 2021-03-01 21:28:00 Elizabeth Shine MD CALCIUM LEVEL TOTAL 2021-03-01 21:28:00 Elizabeth Shine MD ALBUMIN LEVEL 2021-03-01 21:28:00 Elizabeth Shine MD Mustapha on ALKALINE PHOSPHATASE 2021-03-01 21:28:00 Elizabeth Shine MD nderson ALANINE AMINOTRANSFERASE 2021-03-01 21:28:00 Elizabeth Shine MD ASPARTATE AMINOTRANSFERASE 2021-03-01 21:28:00 Elizabeth Shine MD TOTAL PROTEIN 2021-03-01 21:28:00 Elizabeth Shine MD Mustapha on FRACTIONATED BILIRUBIN 2021-03-01 21:28:00 Elizabeth Shine MD GENERAL LABORATORY ADD ON TEST 2021-02-06 14:59:00 Alice Thompson MD COMPLETE BLOOD COUNT W/ 2021-02-06 13:56:00 Nicolette Morataya MD DIFFERENTIAL COMPREHENSIVE METABOLIC PANEL 2021-02-06 13:56:00 Cass Morataya MD MAGNESIUM LEVEL 2021-02-06 13:56:00 Nicolette Morataya MD Andgriso ebenezer PHOSPHORUS LEVEL 2021-02-06 13:56:00 Nicolette Morataya MD Mustapha on LACTATE DEHYDROGENASE 2021-02-06 13:56:00 Nicolette Morataya MD A nderson Results CBC 2021-02-06 13:56:00 Nicolette Morataya MD Andjaquelin sol MANUAL DIFFERENTIAL 2021-02-06 13:56:00 Nicolette Morataya MD And erson GLUCOSE LEVEL 2021-02-06 13:56:00 Nicolette Morataya MD Andgriso n BLOOD UREA NITROGEN 2021-02-06 13:56:00 Nicolette Morataya MD And erson ELECTROLYTE PANEL 2021-02-06 13:56:00 Nicolette Morataya MD Scar son SERUM CREATININE 2021-02-06 13:56:00 Nicolette Morataya MD Mustapha on .GLOMERULAR FILTRATION RATE 2021-02-06 13:56:00 Thu Morataya MD CALCIUM LEVEL TOTAL 2021-02-06 13:56:00 Nicolette Morataya MD And erson ALBUMIN LEVEL 2021-02-06 13:56:00 Nicolette Morataya MD Andjaquelin sol ALKALINE PHOSPHATASE 2021-02-06 13:56:00 Nicolette Morataya MD ALANINE AMINOTRANSFERASE 2021-02-06 13:56:00 Nicolette Morataya ASPARTATE AMINOTRANSFERASE 2021-02-06 13:56:00 Nicolette Morataya MD TOTAL PROTEIN 2021-02-06 13:56:00 Nicolette Morataya MD Andgriso ebenezer FRACTIONATED BILIRUBIN 2021-02-06 13:56:00 Nicolette Morataya MD FREE THYROXINE 2021-02-06 13:56:00 Nicolette Morataya MD Andjaquelin sol THYROID STIMULATING HORMONE 2021-02-06 13:56:00 hTu Morataya MD SOLID TUMOR GENOMIC ASSAY 2021-01-14 18:03:00 Yovana Morataya MD DNA 2018 INTPRETATION AND REPORT SOLID TUMOR GENOMIC ASSAY 2021-01-14 18:03:00 Yovana Morataya MD [place] FUSIONS 2018 INTERPRETATION AND REPORT COMPLETE BLOOD COUNT W/ 2021-01-09 12:04:00 Kaitlin Thompson DIFFERENTIAL COMPREHENSIVE METABOLIC PANEL 2021-01-09 12:04:00 Nacho Thompson MD MAGNESIUM LEVEL 2021-01-09 12:04:00 Kaitlin Thompson MD on PHOSPHORUS LEVEL 2021-01-09 12:04:00 Kaitlin Thompson MD Scar son LACTATE DEHYDROGENASE 2021-01-09 12:04:00 Kaitlin Thompson MD THYROID STIMULATING HORMONE 2021-01-09 12:04:00 Kaitlin Thompson MD FREE THYROXINE 2021-01-09 12:04:00 Kaitlin Thompson MD on URIC ACID 2021-01-09 12:04:00 Kaitlin Thompson MD on Results CBC 2021-01-09 12:04:00 Kaitlin Thompson MD on MANUAL DIFFERENTIAL 2021-01-09 12:04:00 Kaitlin Thompson MD GLUCOSE LEVEL 2021-01-09 12:04:00 Kaitlin Thompson MD on BLOOD UREA NITROGEN 2021-01-09 12:04:00 Kaitlin Thompson MD ELECTROLYTE PANEL 2021-01-09 12:04:00 Kaitlin Thompson MD rson SERUM CREATININE 2021-01-09 12:04:00 Kaitlin Thompson MD Scar son .GLOMERULAR FILTRATION RATE 2021-01-09 12:04:00 Kaitlin Thompson MD CALCIUM LEVEL TOTAL 2021-01-09 12:04:00 Kaitlin Thompson MD ALBUMIN LEVEL 2021-01-09 12:04:00 Kaitlin Thompson MD on ALKALINE PHOSPHATASE 2021-01-09 12:04:00 Kaitlin Thompson MD ALANINE AMINOTRANSFERASE 2021-01-09 12:04:00 Kaitlin Thompson MD ASPARTATE AMINOTRANSFERASE 2021-01-09 12:04:00 Kaitlin Thompson MD TOTAL PROTEIN 2021-01-09 12:04:00 Kaitlin Thompson MD on FRACTIONATED BILIRUBIN 2021-01-09 12:04:00 Kaitlin Thompson MD Josh Encounters Start End Encounter Admission Attending Care Care Encounter Source Date/Time Date/Time Type Type Clinicians Facility Department ID 2021-12-23 2021-12-23 Outpatient JAMES MORATAYA MDA MDA [id number] 13:12:34 23:59:00 NICOLETTE lópezo n 2021-12-23 2021-12-23 Outpatient JAMES ALMANZA, MDA MDA [id number] 13:11:54 15:11:31 BALDEMAR sol 2021-12-23 2021-12-23 Outpatient JAMES ARREOLA, MDA MDA [id number] 12:54:02 13:11:00 LAUREN sol 2021-12-23 2021-12-23 Outpatient JAMES ARREOLA, MDA MDA [id number] 12:06:15 12:06:15 LAUREN sol 2021-12-10 2021-12-10 Outpatient JAMES THOMPSON, MDA MDA [id number] 07:32:55 09:20:33 KAITLIN sol 2021-12-09 2021-12-09 Outpatient EL JAY, MDA MDA [id number] 09:04:47 09:04:47 KAITLIN sol 2021-12-09 2021-12-09 Outpatient JAMES THOMPSON, MDA MDA [id number] 08:51:26 08:51:51 KAITLIN sol 2021-11-14 2021-11-14 Outpatient JAMES MORATAYA, MDA MDA [id number] 12:51:39 16:51:50 NICOLETTE lópezo n 2021-11-13 2021-11-13 Outpatient JAMES MORATAYA, MDA MDA [id number] 08:45:46 08:47:28 NICOLETTE lópezo n 2021-11-13 2021-11-13 Outpatient EL JAY, MDA MDA [id number] 08:34:28 08:34:28 KAITLIN sol 2021-10-17 2021-10-17 Outpatient EL JAY, MDA MDA [id number] 10:07:53 10:07:53 KAITLIN sol 2021-10-17 2021-10-17 Outpatient EL FOSSELLA, MDA MDA [id number] 08:29:28 08:29:28 KAITLIN sol 2021-10-15 2021-10-15 Outpatient EL FOSSELLA, MDA MDA [id number] 10:25:49 23:59:00 KAITLIN sol 2021-10-15 2021-10-15 Outpatient EL VIDHI, MDA MDA [id number] 08:51:49 10:24:00 NICOLETTERUDDY Coy didi sol 2021-09-30 2021-09-30 Outpatient EL KEN, MDA MDA [id number] 07:48:39 11:39:56 CLAUDIA sol 2021-09-19 2021-09-19 Outpatient EL ERROLELLA, MDA MDA [id number] 08:51:28 10:48:39 KAITLIN sol 2021-09-18 2021-09-18 Outpatient EL FOSSELLA, MDA MDA [id number] 10:06:02 23:59:00 KAITLIN sol 2021-09-18 2021-09-18 Outpatient EL FOSSELLA, MDA MDA [id number] 11:27:51 13:09:33 KAITLIN sol 2021-08-22 2021-08-22 Outpatient EL MDA MDA [id number] 13:52:54 16:06:38 Mustapha sol 2021-08-21 2021-08-21 Outpatient EL FOSSELLA, MDA MDA [id number] 10:48:45 12:12:50 KAITLIN sol 2021-08-21 2021-08-21 Outpatient EL PAPADOPOULO MDA MDA [id number] 09:42:21 10:39:56 COURT Cunningham 2021-08-20 2021-08-20 Outpatient EL MDA MDA [id number] MD 09:26:07 09:26:07 Mustapha sol 2021-08-20 2021-08-20 Outpatient EL MDA MDA [id number] MD 08:32:02 09:18:35 Mustapha sol 2021-07-25 2021-07-25 Outpatient EL MDA MDA [id number] 11:06:38 15:10:56 Mustapha o n 2021-07-24 2021-07-24 Outpatient EL MDA MDA [id number] 14:03:29 23:59:00 Mustapha sol 2021-07-24 2021-07-24 Outpatient EL FOSSELLA, MDA MDA [id number] 15:12:11 15:29:00 KAITLIN sol 2021-06-26 2021-06-26 Outpatient EL FOSSELLA, MDA MDA [id number] 14:29:17 14:29:17 KAITLIN sol 2021-06-26 2021-06-26 Outpatient EL FOSSELLA, MDA MDA [id number] 11:17:51 14:02:23 KAITLIN sol 2021-06-25 2021-06-25 Outpatient EL VIDHI, MDA MDA [id number] 08:41:02 08:41:02 NICOLETTE tolbert n 2021-06-25 2021-06-25 Outpatient EL FOSSELLA, MDA MDA [id number] 08:26:55 08:30:34 KAITLIN sol 2021-05-29 2021-05-29 Outpatient EL FOSSELLA, MDA MDA [id number] 11:03:03 14:24:28 KAITLIN sol 2021-05-21 2021-05-21 Outpatient EL FOSSELLA, MDA MDA [id number] 10:13:50 23:59:00 KAITLIN sol 2021-05-21 2021-05-21 Outpatient EL VIDHI, MDA MDA [id number] 10:44:24 13:03:33 NICOLETTE tolbert n 2021-05-01 2021-05-01 Outpatient EL FOSSELLA, MDA MDA [id number] 11:37:12 17:16:50 KAITLIN sol 2021-04-24 2021-04-24 Outpatient EL FOSSELLA, MDA MDA [id number] 10:40:41 11:51:15 KAITLIN sol 2021-04-23 2021-04-23 Outpatient EL VIDHI, MDA MDA [id number] MD 09:42:56 09:42:56 NICOLETTE Coy rso n 2021-04-23 2021-04-23 Outpatient EL FOSSELLA, [facility] [id number] 09:03:53 09:36:33 KAITLIN sol 2021-04-03 2021-04-03 Outpatient JAMES THOMPSON [facility] [id number] 13:49:14 15:39:37 KAITLIN sol 2021-03-27 2021-03-27 Outpatient JAMES THOMPSON [facility] [id number] 13:54:43 23:59:00 KAITLIN sol 2021-03-27 2021-03-27 Outpatient JAMES THOMPSON [facility] [id number] 14:44:39 16:13:07 KAITLIN sol 2021-03-20 2021-03-20 Outpatient JAMES ROGERS [facility] [id number] 07:57:51 11:28:17 CLAUDIA sol Results Test Description Test Time Test Comments Results Result Comments Source Prothrombin Time 2021-12-23 18:57:56 Test Item Value Reference Range Interpretation Comme nts PT (test code = 5902-2) 15.6 See_Comment H [Au tomated message] The system which ge nerated this result tra nsmitted reference range : 11.5 - 13.9 second(s). The reference range was not used to interpr et this result as vidya l/abnormal. INR (test code = 6301-6) 1.33 0.90-1.10 H KATLIN (test code = KATLIN) This lab cannot be scheduled at the following locations due to collection/proccessi ng restrictions: [facility] [facility] and [facility]. Lab Interpretation (test Abnormal code = 43917-1) [facility] Add-On [id number] 22:45:38 Test Item Value Reference Range Interpretation Comments Ordered (test code = 6568) Test Added Test Needed (test code = 7604) Free T4, TSH [facility] [id number] 15:23:38 Test Item Value Reference Range Interpretation Comments POC Crea (test code 1.3 mg/dL 0.6-1.3 Medicati ons, = 98242-9) especially hydroxyurea or supplements, cyr ch as ascorbate, can interfere with test results causing a falsely and significantly h igher result than exp ected. If a problem is suspected with a patient's resul t, a [facility]. Method descript ion: The i-STAT is a n analyzer used f or in vitro quantific ation of various anal ytes in whole blood. The device uses a s ronen disposable cart ridge which contains microfabricated sensors, a calibration frantz ution, fluidics system , and a waste chamber . Each test cartridge contains chemic ally sensitive biose nsors on a PassKit ip that are config ured to perform spec ific tests. The microfabricated sensors measure analyte concent ration by an electroch emical assay. POC eGFR-AA (test 58 See_Comment L Normal eGF R >= 60 code = 76084-5) mL/min/1.73 m2 The eGFR is calcula cliff using the CKD-E PI equation. The e GFR declines with a ge. eGFR <60 mL/min /1.73 m2 is considere d as "decreased" Thi s equation should only be used for pat ients 18 and older. According to th e National Kidney Foundation's Ki dney Disease Outcome Quality Initiat jeannie (KDOQI) classification and 2012 Kidney Dis ease Improving Globa l Outcomes (KDIGO ) Clinical Practi ce Guideline, the stage of CKD should b e categorized bas ed on estimated GFR. Stage Description GFR mL/min/1.73 m21 Kidney damage w ith normal or high GFR >=902 Kidney d amage with mild decre ase in GFR 60-893a Mild to moderate dec rease in GFR 45-5 93b Moderate to sev ere decrease in GFR 30-444 Severe decrease in GFR 15-295 Kidney f ailure <15 (or julian lysis) [Automated mes kirk] The system [employer] generated this result transmitted ref erence range: >=60 mL/min/1.73 m2. The reference range was not used to int erpret this result as normal/abnormal . POC eGFR-GOLDIE (test 50 See_Comment L Normal eG FR >= 60 code = 61097-1) mL/min/1.73 m2 The eGFR is calcula cliff using the CKD-E PI equation. The e GFR declines with a ge. eGFR <60 mL/min /1.73 m2 is considere d as "decreased" Thi s equation should only be used for pat ients 18 and older. According to th e National Kidney Foundation's Ki dney Disease Outcome Quality Initiat jeannie (KDOQI) classification and 2012 Kidney Dis ease Improving Globa l Outcomes (KDIGO ) Clinical Practi ce Guideline, the stage of CKD should b e categorized bas ed on estimated GFR. Stage Description GFR mL/min/1.73 m21 Kidney damage w ith normal or high GFR >=902 Kidney d amage with mild decre ase in GFR 60-893a Mild to moderate dec rease in GFR 45-5 93b Moderate to sev ere decrease in GFR 30-444 Severe decrease in GFR 15-295 Kidney f ailure <15 (or julian lysis) [Automated mes kirk] The system [employer] generated this result transmitted ref erence range: >=60 mL/min/1.73 m2. The reference range was not used to int erpret this result as normal/abnormal . POC Clean Dev (test Yes code = 6672) Performing Lab (test MDA Main Main Ca mpus code = 36307) [facility] Cli nical Lab, [address] [place], [place] [address]marky [facility]Select [facility] [place] [address]; Transit Clerk: Danielle Nguyen MD Lab Interpretation Abnormal (test code = 22436-0) MD MorenoPathology Biopsy [id number] 18:54:46 Test Item Value Reference Range Interpretation Comments Submitted Clinical History [id number] (test code = 68827) mbGFuZzEwMzNcZnRuYm pcdWMxIHtccnRmMVxzc 2SrK7HlPnIwQKjvucJm XGRlZmxhbmcxMDMzXGZ 0bmJqXHVjMVxkZWZmMH ojUn0saZMidEebBqOaJ CPpc1neooQMpneoaXr1 w6itFRSvIiW4dGUcYQc nR7qxygUlaKAvHFVyEQ p1yB91NHGouG6lfMTmI RyilqGoJjD9FHlxQSZd GzH8LVHfjYEtJJOkE2h yZWQwXGdyZWVuMFxibH PoAEZ2cHhbw9S8gOXqc GVldHtcZjBcZnMyMiBO y6WiBNg8fOfvJ2SlYPT rTsI2vSEaLLJkUUckQU BvHIJygfR9aT18PFruf xX9bMUlp3Bwv83wi978 gO6gsTJvAJH5TZDiLUB rjBUkGQBlTXD6MTUvzF OhM2liJVFkTO1gglujY JjqRJsjJANvqDR0ZQUo tAGhG8YoLGUgAXjhFFQ klmw8YrKsYt5odAQruS mkTAffa8djt0yunZZuD wq7CDCeSbGdJyrjADfj r3Klv5qiXOLkdn4xGHL 1uMArbZwrt0I3pNRwTB XhsTFfhbJgQEQgCpE6H BvgHN5gmu75PMEjIKU2 uv8pkPOfrDyxnsFoeCQ aNMkkE0AuPVIjv686KK RpP3GuPLGvi8K1uyVpQ pRlLQLkqAA8eyJ0BCBe DTi2cYEjgzB5cyZibIX qW8ppwT0nDWEyBP5ybd yyv1vzYBctTQfsSGEja UP1zfY0GOCpvVFhO5Kv mP3hQVOuNWgePRLoaao 8KaDpCd0gmHAajMxbIQ xzYmtwYWdlXHBnbmNvb nRccGduZGVjXHBsYWlu XHBsYWluXGYwXGZzMjR wzAvmdRolxH8iMuLyVf VdOXphEV6tOSNgC2erh TNiZIHmMNGlT2zlWgQv eC9nmHwyGYgnphHfNVI pu5UnVCPekZszH2GpG5 yko40cYC6eFCGzbUAxt S0gFCNsJGD6TXhLPWUn LEF0USchTAFtRxWxFYh gK0DtfLIkQKAeqG5akH Asc5QrAtMrdcOlOxA9S fEcAK0hfUrzmQ7lQaXq ZnMcLvuvTK2aDGItC2x rtOLuLVUoXVBpV7rmDg ShzQ8ykThqDFhaisPkR HBhcn19 Diagnosis (test code = 34) k2nhvCMfLXPmoSV8YjX wJMYwp8bha3HvvLCjpP DmLYbccKUjwjTblu62r YM5jX55WI3lVEMsYoG4 PCPgbbA9Hcg7KEMlAGK vxYScR572g3zrv9olpa ShpQZ1UUDvVLNuP3AzR O4kRPSlrKLkG94rsJOp LVG3LDGqDHZaxIQqDHJ iGJM1DJLrdSHlX6uuQN FxVW5fpanwKOxcHYbjQ GAixXI9CDQqePLrW0Ge EIPgJKecYYQbeeh6AhX nVd8kuFGhtEzqAOalYO JkXHBsYWluXGZzMjBcY 1BwUCG9ONWihX4jGXDy V7c2ADEnEJX2DDAvyHh dlVWwWksfCIMusTh7Qr BcbGluNzIwXGNmMCBTa 2luIGFuZCBzdWJjdXRp onX4lLYxAOyaYNkotpw fm0QtZ1yuYUzpq616bb Ocp6Fjua0mkYHuTAVFY 5LHTICZQTmbS9BJD6oV T63WMIQJU3BYDWUPZHR FBUEDFAWRHvEVC1eWOF BQQVRURVJOUywgUElHT UVOVEVELCBJTktFRCBN TDOXJQ4OXXQFTMPQVhY JCoswpS6mOOSmK0roea 58uwBoKRG3wK0bJfDfv YNfR2JzYWApYEWsc2gy rNM6zDl3tZBuDEdfMVS uA8JvXLElsC5holCqYV xwYXJcbGkwXGxpbjBcc KGyVUPdOBIWYfVAb0uo YPOmXR13cmMgYORhO7m eKSCxqOwsi3J5JPHltd iglWrfCRhziK53TmUjG 6PgVIWxaU6wZB3eHTX7 AjR8mPjyRQcpuYgbhAB hbGluZyBzdXJnaWNhbC K9n3NeBM8wJ6EjEadiK WFhPwFOYXreO8HUWMJT NSYBRA8DENCvVHQVRJS SRklDSUFMIEFORCBFQV GKDEMGM7ESLIUHQYJBE OUBCx8QFFJYOHGUBA8E IEFSRSBGUkVFLlxsaW5 dMRGfTrP4m8PaTpQgs6 aiv7GbVHEjL3FqofgtD GWsKH2bUMRtBA0jMNOr uNyvB7DyaEBxjq5uiJk cXIBNSPZkW49lcBIimK 5ccGFyfQ== Comment (test code = 9835) t6xplQQsAJWrqFG7KxV lWBDor5isy3WlmASekU IwLEezjPUqvjNvtz75p VA5iM24CI9uQUCrKhR3 PWVeqcW8Nsu1VVTaEQU wlEIzX250x5jnx7znsm NwzSE7rFszCSSyxwwqL yO0BDyeYGOirbqjSQd3 ARtfPUWptIW7TDFixLK yV6HrUICdWY8fpbj8ZK W1FAgnQVApDiH9OQXii BXkVNYpqEceELvhr703 LFN5KwRsQEZikyQygWz enY9fWwRyYFNQRCQpWx ogTXVsdGlwbGUgYWRka LTjd37fhMKaOLGnSGTs wQaow5DbZDEeC8Vtf80 zIGhhdmUgYmVlbiBjdX SlQG9rUDR4YP4adnIzW iAgXHBhcn0= Gross Description (test n9sdwQJkQLMsiXDMQTm code = [id number]) wMFxhbnNpXHNwbHRwZ3 JnzxwoSErqVE6uDH6cr WxjyJXmgQIqHA2LUWZx ZmYxXHBhcGVydzEyMjQ uUBFmlTVrpSN1HOMnMP 1hcmdsMTgwMFxtYXJnc qF8QIEyyUTwM3RiHKMe NL0igkbxAWL6CUrckF9 seaZPBzqrWu5unGTlqH tcZjFcZmNoYXJzZXQwX DDcaOhvKWZtVEy5yM4B OphgY03wx0E2Jaa2LLH xHBAdM3OpFU8eXFKpgI OjR77HHmlgFKE8YMAIC kkhWFZiXK2Tl0hgHVVl iYTuFPE5LJyijQSgKBZ eMMIaVYd1NZMcHTtjyO RsLP7ppXysYclgyAhmv 2VjdCBcXGlkIDUxMDAy UQzkDRRnGS8IRbDiKZX jAQA2PUBeIHh2NWw6XE 6DJcBmCCQdEFm4PLHjL nJuROd5WBmlXR1BEPma TTX1OWUjYqX2UEHiYhI cXHQgMiBcXGYgQXJpYW wgXFxmcyAxMCBcXGZiI NlyKgmbWTctC91lxXqv nN2qBbgcodBnPHN4WHK hciANClxwbGFpblxlcG ljTmVzdERvYzEgDQpcb HRycGFyXGxpbjBccmlu MCANClxsdHJjaFxiXGN tDPlqpdGfDRLqkE5vJQ TcV2k5CTXlXKI1NeitZ FxjZjAgIEEgdGFuLCBo YWlyYmVhcmluZywgaXJ rCOk1lWXnAPDlhH1bOD rtzERbb52fwMKyw6Kyv P9nOYLyFqJ2PDOsWeCw bSBhbmQgZXhjaXNlZCB 0byBhIGRlcHRoIDAuOS SghP1bEFBsITFeLPutN KUwh8H9zSMmXCM9yLBp yIThPND7FMSokBpzQEk pdGhvdXQgZGVzaWduYX Bwe70bQR2sADlxuTjlY mUgYXNzaWduZWQgYXQg cBxmKFYpBR0xG3afX8i ktG7tbSTlw40dBTABhP Upy7JgB2obVZ1xeHAvi 1ZjuAQuvLhnb4VeeHdi bmVkLCBlbnRpcmVseSB hyQJqsUV2OVPyc0XjsS SmaRrwdCe7UMenWRKwZ IN0GrHYGOcaAGCkYZcC BjfiX54UKConZqBbmVA cWd8cYVLjlahveT3bqd nwNxu7FNxpUgDiyRH1B BvaMDWcobeaaR1kmgzr a7OvdoybJULanmZKQwC EW3IRG46mK70WNJgyBR EsIDEyOjAwIHRpcCwga G7uGXTiPAWxkBU0LMQf LUEzLCAxMjowMCBoYWx mLCAyIHBpZWNlcyBlYW XsSoNSQN4PNZuxItriE CBoYWxmLCAyIHBpZWNl cyBlYWNoOyBBNiwgNjo kZYK2xKSkQOhxweRlrN IhCBYsOl9AVAToqHVDL HG5TJ0pGWe6LCqgJSWv C7GzC5IuilBmpBLhGIM zunOhn7rmGSW3LLTnqW RwxBNzZtCcYevlUWU1N SAjVYreSI1Vt9qtSPNu eMHlPHH8WSxdwOTqDSU tYGVdYJihVvIdW2YOSP KuQlFhGgheNUOcAGk9B CxmI5PUGTYvNUA2PUp7 BMI3BqQ7ZUo2KUFOId8 rFCO6JuJ6JQI9IYK1NB Y8MDnwdGSlDKjrTrFCe mlhbCBcXGZzIDEwIFxc VcXsGDtjuTRqVH2opHm wbGFpblxiXGZzMjAgQj pbuDLeSO4FSYZxXOaeB OJwvTMLFUE2HS7gYCUC ClxsdHJwYXJcbGluMFx hhC3zBE7VBLu6goYyAK AeM8KfFAKgWkPnH9eaf nmzN7SlmKZodUBhZIPo OlxiMFxjZjAgIEEgdGF uLCBoYWlyYmVhcmluZy lfrB6pufoqkiFyQKYoq 7nnALS3Z9gmyI1nLP8k DGU4ptarRwZiKfirkNM yTbulX75nJN9cCDS6Q9 xrXQEwtY8bxCveOGDyB iPmoA9nXLTfCCBgDXmw LLKxssXqBEWjhuufC8Y ghKOirEGiWZAvr32yaN Btr8KqsN4gJMAeQSH7Z NCyFmUegQS5uZvdmYIe raWdMairI90rcE5mtMl cRTCac7Hql7CrfTDfN1 ujPgOkUPyqPK2xwiulg jJbUQOpWCdov3SfWQPm IUJsEAiklQZuBJC6wV4 aYETsTJYvmXwuBYo6TW F5Uz4jyVJzPUEvsqFEE L1PZn7kMCGklZHwFH1U S4CZGRrQUqEWP2GBBmB JWZhxwHcukkunwA4zHW CwXLStmIY0KXKjFPN6L CgzIHBpZWNlcyBlYWNo KSBhbmQgQjYgKDIgcGl rL3OlFNrptpTtUMxdGI IeQZbkEXLkR49mn8ENb 4OrWQKmt3xeoBrob1Za dGVuZFxwYXJccGFyZFx mvI0iPwHrv5yotKm5TB vhodK6IDMcod3ylEbvw Y2eTQkak2qcKSQ4RKHw bXVsdDAgDQpccGxhaW5 dDhMpAjm6LYhwWZQwR3 SfI3FobgJ6NGTaDFufW GZzMTYgDQp9 Disclaimer (test code = h0dssKPsRLPhrLMhHiC 9844) lCLKkIQPxv0adWLVgsE FuZzEwMzNcZnRuYmpcd WNaSQVuHcCkq3dml447 zDLvc4fqYPAmLuN8yUY kCYIviVLkK956KJFoVT nlo2jkd7UsRWLaoMKxg 9A4OGRGlqpipId2uDhy V40yj3C0TfyoO0fhYRZ cHCWkD0ErPQ8yEQItMu c8ZMS4PQU3EROyOPBuP 6IhQJ2uPAGskDAcJZn3 v4cxnGjeTBWkVSI9p1c oJBrkajQjHX5vqj9fhD w9r6rbjwAfDJRoZYZtp LOUEPQdC0IdfTxsUl1z aRm3yLaaAfnaJDU7Uon 4YH2juq38bot1jUuxXH DheeouLiE4IPfbFAHbq webBRm7GSebQDKjwMG2 SCWlqZTaC6UxAEEyFV5 glvt5XBO3CRchIBGhFw Y2YCKfxHWyLEQwlNkrG Agwe427SWT1LrIjOE9k Y3Zkt6J8eZ0jsDIbQNV euKYoAzKeKQFlui1zyU VxLXlvm1XkZKK0gaY8b LKloFXmACNlBZ94Rnjw r7HaCqwmGFM1DDQertM jl8Xns3elTxPtqcMtS6 gwO8RwMJHqLGDvTEZjH tFsgqKtl3Vwk3QyjOVt rUb6g7ctNGVkPTJmsYa si2pmTZT3YBImB5F1qG Mqk7wiZFvtWNCyhLC6x zS3VRFreUYhB0QldZ7z VQQzNW5cfdh4y2giQSB 8EPokXBCeMqI3drS7EP BcaGVhZGVyeTcyMFxmb 271UVM7NyHaFNQzk1Ue A4UmiOtlS86qkPcxH09 uIGCxhCbuvX7jdMqeqX 5cZjBcZnMyNFxxbFxwb ZNhrbaiMBxamwN1ZYda yjrdULQqSIoxV2pqNpF fNSEqvXmzKEwjy2GaYE VmDYIyDsftxjA2WOQTe 70cJWGzm5SdXJQhwL1t uUNjJLvnnxSbuTA1SFr hdmUgYmVlbiBkZXZlbG 6uECQlYQ3iHMQzdvGyx o1sxdUrLUJrPCTjY2Ew cmlzdGljcyBkZXRlcm1 fadYlCCZ4IYNGXX7VQQ DzSAUax57cGDOumJwcp D9yaVQkeyZzAPLsh2Qi jS1kgGZWEDNcK7piUJ2 dTXodd7JoxXOhqCWvwW M2DXTfq1YnWhRktzJvo SZleEEeB5IxaTneW3yj PMJkBLZbrkHlxCWxb2O rDRZkaNN2uCZrNQ1IWr TBs38yXBHgXOBAdvQuO PZzgIlasLJ5ktJ5kG4x LiBJZiBhcHBsaWNhYmx xKNWrr517gb6gzlW7KI IsFWYznphtd2VpPKIoJ CWyaQ17LLOrQWTgck6f qpahcGUelfJsO6Mtczc 8yJ6nEFHzHYjoPRZxCU ZzMjJcbGFuZzEwMzNca GljaFxmMVxkYmNoXGYx GVadI7sbItLjDoOwTrb wYXJ9 MD MorenoUric [id number] 20:03:56 Test Item Value Reference Range Interpretation Comments Uric Acid (test code = 5.8 mg/dL 3.4-7.0 7955) KATLIN (test code = KATLIN) Within 72 hours prior to each dose. [facility] Glucose [id number] 12:33:39 Test Item Value Reference Range Interpretation Comments POC Glucose (test 104 mg/dL 70-99 H Capillary blood code = 34369-9) samples, e.g . obtained by fingerstick, ma y have inaccurate resu lts in patients with decreased perip heral blood flow. Met hod description: Al l results are chioma sured using Electrochemistr y test methodology. Th e glucose in the sample mixes with the reagents on the test strip. The reac tion produces an theresa ctric current. The am ount of current prod uced is proportional to the glucose concentration i n the blood. PO Sample Type (test Venous code = 9554) Performing Lab (test MDA [facility] Ca mpus code = 77606) [facility] MD [facility]no Cli nical Lab, [address], [place] [address]; Transit Clerk: Danielle Nguyen MD Lab Interpretation Abnormal (test code = 84154-6) MD MorenoUrine [id number] 21:55:15 Test Item Value Reference Range Interpretation Comments Final Report (test No growth code = 8488) Path Review - Urine The results have been (test code = 8483) reviewed and electronically signed by Pathologist:DERIK BERUMEN MD #[id number] MD [id number] 11:35:25 Test Item Value Reference Range Interpretation Comments Prolactin (test code 10.1 ng/mL 4.0-15.2 Results greater than = 6869) 4700.0 ng/mL jessie y not be reliable due to matrix effect with ext ended dilution as it exceeds the manufacture r s recommended l imit. Caution should be exercised when interpreting cyr ch values and done in conjunction wit h clinical contex t. MD MorenoFSH [id number] 11:35:24 Test Item Value Reference Range Interpretation Comments FSH (test code = 9.4 See_Comment Female Foll icle Stimulating 5571) Hormone Referen ce Ranges: LOW HIGHFollicula r 3.5 12.5 Ovulation 4.7 21.5Luteal 1.7 7.7Postmenopaus e 25.8 134.8 [Automat ed message] The system [employer] generated this result tra nsmitted reference range : 1.5 - 12.4 mIU/mL. The ref erence range was not used to interpret this result as normal/abnormal . MD [id number] 11:35:23 Test Item Value Reference Range Interpretation Comments LH (test code = 6126) 10.0 See_Comment H Female Luteinizing Hormone Referen ce Ranges: LOW HIGHFollicular 2.4 12.6Ovulation 14.0 95.6Luteal 1.0 11.4Postmenopau se 7.7 58.5 [Automated mess age] The system [employer] generated this result transmitted ref erence range: 1.7 - 8. 6 mIU/mL. The ref erence range was not u sed to interpret this result as normal/abnor mal. Lab Interpretation Abnormal (test code = 50958-9) MD [id number] 11:22:42 Test Item Value Reference Range Interpretation Comments ACTH (test code = 48 pg/mL 63 Results gr eater than 1826 4643) pg/mL may not b e reliable due to matrix e ffect with extended diluti on as it exceeds the man ufacturer's recommended claros it. ACTH reference inter vals are established for the morning hours f rom 7-10 am. Due to the circadian rhythm of ACTH levels in plasma, the flaco ple collection time must be noted. Caution should be exercised when interpreting cyr ch values and done in con junction with clinical c ontext. MD MorenoPotassium [id number] 11:05:12 Test Item Value Reference Range Interpretation Comments U Potassium (test code 9 mEq/L Vidya l range not = 7802) available for c ollections less than 24 ho urs in duration. MD MorenoChloride [id number] 11:02:33 Test Item Value Reference Range Interpretation Comments U Chloride (test code = 24 mEq/L Norm al range not 7709) available for c ollections less than 24 ho urs in duration. MD MorenoSodium [id number] 11:02:32 Test Item Value Reference Range Interpretation Comments U Sodium (test code = 35 mEq/L Normal range not available 7809) for collections less than 24 hours in dur ation. MD MorenoOsmolality [id number] 11:01:26 Test Item Value Reference Range Interpretation Comments U Osmolality (test code 178 See_Comment Urin nehal osmolality may = 7785) vary widely, de pending on the state of hydration. [place] om urine osmolality can range from 50 to 1400 mOsm/kg H2O depending o n fluid intake. In jose viduals on average flui d intake, urine osmolalit y is typically 300-9 00 mOsm/kg H2O.Uni ts of measure: mOsm p er Kg of water. [Automa cliff message] The sy stem which generated this result transmit cliff reference range : 50 - 1,400 mOsm/kg H 2O. The reference range was not used to interpr et this result as normal/abnormal . MD MorenoUrinalysis with [id number] 10:53:10 Test Item Value Reference Range Interpretation Comments UA WBC (test <1 See_Comment [Automated code = 7904) message] The system which generated this result transmitted reference range : 0 - 2 /HPF. The reference range was not used to interpret this result as normal/abnormal . UA RBC (test <1 See_Comment [Automated code = 7891) message] The system which generated this result transmitted reference range : 0 - 2 /HPF. The reference range was not used to interpret this result as normal/abnormal . UA Mucous (test NOT SEEN Not Seen-Trace code = 7887) /HPF UA Bacteria NOT SEEN NOT SEEN /HPF (test code = 7870) UA Squam Epi NOT SEEN None-Occasional (test code = /HPF 7896) KATLIN (test code Some reporting = KATLIN) parameters within the Urinalysis test have changed due to the implementation of new instrumentation in the [facility] [place], allowing greater sensitivity of measurement. Urinalysis results reported by the [facility] using existing instrumentation, as well as Urinalysis testing performed manually or by backup methodology at the [facility] [place] will remain relatively unchanged. New reporting parameters and units will now be reported for all campuses. MD MorenoUrinalysis w/Microscopic if [id number] 10:45:23 Test Item Value Reference Range Interpretation Comments UA Color (test code = 7877) Yellow Straw-Yellow UA Appear (test code = 7868) Clear Clear UA Glucose (test code = 7881) NEG NEG mg/dL UA Bili (test code = 7871) NEG NEG UA Ketones (test code = 7884) NEG NEG mg/dL UA Spec Grav (test code = 7894) 1.005 1.003-1.035 UA Blood (test code = 7872) NEG NEG UA pH (test code = 7909) 7.0 5.0-9.0 UA Protein (test code = 7890) NEG NEG mg/dL UA Urobilinogen (test code = 7903) NEG NEG UA Nitrite (test code = 7888) NEG NEG UA Leuk Est (test code = 7886) NEG NEG MD Moren[id number] 03:07:56 Test Item Value Reference Range Interpretation Comments Osmolality (test code = 258 See_Comment L Unit s in mOsm per kg 6571) of water. [Auto mated message] The sy stem which generated this result transmit cliff reference range : 275 - 300 mOsm/kg H 2O. The reference r tejas was not used to interpret this result as normal/abnor mal. Lab Interpretation (test Abnormal code = 23828-1) MD [id number] 22:26:40 Test Item Value Reference Range Interpretation Comments LDH (test code = 195 U/L 135-225 Results gre ater than 1651 6111) U/L may not be reliable due to matrix effec t with extended diluti on as it exceeds the man ufacturer s recommended l imit. Caution should be exercised when interpreti ng such values and done in conjunction wit h clinical context. MD [id number] 22:21:57 Test Item Value Reference Range Interpretation Comments Lipase Lvl (test code = 6165) 22 U/L 13-60 MD [id number] 22:21:56 Test Item Value Reference Range Interpretation Comments Amylase Lvl (test code = 4806) 65 U/L 28-100 MD MorenoInfluenza A/B + COVID-19 Asymptomatic- [id number] 22:17:12 Test Item Value Reference Range Interpretation Comments COVID19 Not Detected Not Detected (SARS-CoV-2) (test code = 14585-8) Influenza A (test Not Detected Not Detected code = 46853-5) Influenza B (test Not Detected Not Detected code = 00811-7) COVID19 SARS Inpatient Indication (test Admission code = 46285) Inf AB+Cov19 See Note The odalis SARS- CoV-2 Comment (test & Influenza A/ B code = 58842) nucleic acid t est for use on the urszula s Le[employer] System is a Vettro real-time RT-PC R assay intended for the simultaneou s, qualitative det ection and differentia l of SARS-CoV-2 (COVID-19), inf luenza A, and influenz a B viral RNA in nasopharyngeal swabs in transport me julian from patients suspected of rick ving a respiratory inf ection with one of the se viruses or poss ibly exposure to COV ID-19 by a healthcare provider. Resul ts must be interpr eted within the cont ext of all relevant cl inical and laboratory findings and sh ould not form the so le basis for a julian gnosis or treatment decision. A fac t sheet for patie nts provided by the [employer] ([employer]) can be rev iewed at: https://www.fda .gov/m edia/638365/yovani nloadA fact sheet for Health Care providers is provided by the [employer] ([employer]) and can be reviewed at: https://www.fda .gov/m edia/651824/yovani nload Influenza A and Influenza B neg ative results should be considered presumptive in samples that rick ve a positive SARS-C oV-2 result. If co-infection wi th influenza A or influenza B vir us is suspected in sa mples with a positive SARS-CoV-2 resu lts, the sample shou ld be re-tested with another approve d influenza test. This assay has been authorized by t FDA for use only un chi Emergency Use Authorization ( EUA) in laboratories that have been CLIA-certified to perform moderate-comple xity and high-comple xity tests. The Microbiology Laboratory at [facility] [place], CLIA Accreditation #[id number] and CAP Accreditation #[id number], verif ied the performance characteristics of this assay. Int ernal controls are us ed to monitor all sta ges of the test yaz Moreno
[2021-12-30] MEDS ORDERED: NA CHLORIDE 0.9% 500 ML ONE (20:28)
[2021-12-30] MEDS ORDERED: LEVALBUTEROL 1.25 MG/3 ML NEB ONE (20:28)
[2021-12-30 20:48] LABS: Absolute Lymphocytes (CBC) 0.8 K/uL (0.7-4.9); Hematocrit 33.4 % (39.6-49.0); MPV 6.9 fL (7.6-11.3); RBC Red Blood Cell Count 4.55 M/uL (4.33-5.43)
[2021-12-30 20:54] LABS: Protime INR 1.33
--- NOTE | 2021-12-30 21:08 | RAD REPORT ---
EXAM DESCRIPTION: RAD - Chest Single View - 12/30/2021 8:57 pm CLINICAL HISTORY: active lung cancer;Dyspnea COMPARISON: Portable 10/08/2018 chest film, CT chest 10/08/2018 TECHNIQUE: AP portable chest image was obtained 12/30/2021 8:57 pm . FINDINGS: Pleural and parenchymal opacification are present at the left base. History indicates know n lung cancer with 2019 study showing a posteromedial mid left chest mass. The mass is not grossly ev ident and may have responded to therapy. No acute right lung field finding. Curvilinear line at the r ight apex is probably soft tissue rather than apical pneumothorax. Heart and vasculature are normal. No right-sided pleural effusion. Small left pleural effusion could be present as well as pleural scarring. No acute bony abnormality seen. No acute aortic findings susp ected. IMPRESSION: Limited portable study shows pleural and parenchymal opacification in the left base. 2019 CT imaging showed posteromedial midchest malignancy. Full therapy and surgical history is not kn own. There could be remnant retro hilar mass still present. Curvilinear line at the right apex is probably summation of soft tissues rather than pneumothorax. Follow-up CT imaging could be performed to clarify chest findings if the patient has not had a recent examination
[2021-12-30 21:26] LABS: Albumin 3.2 g/dL (3.4-5.0); Bilirubin Direct 0.3 mg/dL (0-0.2); Bilirubin Total 1.1 mg/dL (0.2-1.0); Potassium 4.1 mmol/L (3.5-5.1); Protein, Total 6.9 g/dL (6.4-8.2); Troponin High Sensitivity 25.7 pg/mL (<58.9)
[2021-12-30 22:02] LABS: Urine Blood 2+ (Negative); Urine Glucose Negative (Negative); Urine Protein 2+ (Negative); Urine Specific Gravity 1.015 (1.005-1.030)
--- NOTE | 2021-12-30 22:02 | RAD REPORT ---
EXAM DESCRIPTION: CT - Head Brain Wo Cont - 12/30/2021 9:42 pm CLINICAL HISTORY: DIZZINESS COMPARISON: Head Brain Wo Cont dated 10/08/2018 TECHNIQUE: Axial 5 mm thick images of the head were obtained without IV contrast. All CT scans are performed using dose optimization technique as appropriate and may include automated exposure control or mA/KV adjustment according to patient size. FINDINGS: No intracranial hemorrhage, mass, edema or shift of mid-line structures. No cortical level infarction. No cortical edema or sulcal effacement. Moderate atrophy present with ventricles in prop ortion. Chronic ischemic changes in the cerebral white matter are mild. Arterial tree calcifications are present. No abnormal extra-axial fluid collections. Mastoid air cells are clear. Chronic left maxillary sinusitis present with inspissated mucus. Sinus c hanges cause expansion of the bone of the medial wall into the nasal passage No acute bony findings. No globe or orbital content abnormality. IMPRESSION: No acute intracranial finding. Patient has moderate severity atrophy and mild chronic is chemic change.
--- NOTE | 2021-12-30 22:08 | RAD REPORT ---
EXAM DESCRIPTION: CT - Chest For Pe Angio - 12/30/2021 9:49 pm CLINICAL HISTORY: dyspnea, active lung cancer COMPARISON: Chest Angio dated 10/08/2018; Chest Single View dated 12/30/2021 TECHNIQUE: Dynamically enhanced 3 mm thick images of the chest were obtained during administration o f approximately 150mL Isovue 370 IV contrast. Coronal and oblique MIP reconstruction images were gene rated and reviewed. Exam utilizes a protocol to evaluate the pulmonary arterial tree. All CT scans are performed using dose optimization technique as appropriate and may include automated exposure control or mA/KV adjustment according to patient size. FINDINGS: No pulmonary emboli are identified. The aorta as imaged shows no acute finding. Aortic atherosclerotic changes are present. No pericardia l thickening or effusion. Known malignancy in the posterior mid left chest has decreased in size. Mass is approximately 3.5 x 2 .7 cm compared to 4.7 x 3.4 cm. Since 10/08/2018 examination patient has developed small loculated pl eural effusion at the left base. There is adjacent parenchymal stranding that is probably chronic rat her an infiltrative process. No consolidation typical for bacterial pneumonia. Minimal right pleural effusion is present. No pneumothorax is present. No mediastinal or hilar suspicious masses. No chest wall masses or abnormal axillary lymphadenopathy. IMPRESSION: No pulmonary emboli identified. Interval reduction in the size of the known posterior left chest malignancy since October 2018. Loculated small pleural effusion in the left base with adjacent pleural thickening and parenchymal st randing. Minimal right pleural effusion is seen. No focal infiltrate confirmed.
--- NOTE | 2021-12-30 22:19 | ER ---
Nurse's Notes [facility] Name: Miguel Hogan Age: 86 yrs Sex: Male : 1935 Arrival Date: 12/30/2021 Time: 20:04 Bed 19 Private MD: Ralph Martins C Diagnosis: Dehydration;Other malaise and fatigue;Dizziness and giddiness Presentation: 12/30 20:22 Chief complaint: Patient states: I am having generalized weakness, shortness of breathe st1 and dizziness that started today. Coronavirus screen: Vaccine status: Patient reports receiving the 2nd dose of the covid vaccine. Moderna. Ebola Screen: No symptoms or risks identified at this time. Initial Sepsis Screen: Does the patient meet any 2 criteria? No. Patient's initial sepsis screen is negative. Does the patient have a suspected source of infection? No. Patient's initial sepsis screen is negative. Risk Assessment: Do you want to hurt yourself or someone else? Patient reports no desire to harm self or others. Onset of symptoms was December 30, 2021. 20:22 Method Of Arrival: Ambulatory st1 20:22 Acuity: ROSE 3 st1 Triage Assessment: 20:23 General: Appears in no apparent distress. comfortable, Behavior is calm, cooperative. st1 Pain: Denies pain. Respiratory: Reports shortness of breath Onset: The symptoms/episode began/occurred gradually, the patient has mild shortness of breath. Historical: - Allergies: 20:23 Etodolac; st1 20:23 telbivudine; st1 - PMHx: 20:23 Hyperlipidemia; Hypertension; skin cancer; st1 - Immunization history:: Adult Immunizations up to date. - Social history:: Smoking status: Patient/guardian denies using tobacco, but has a distant history of tobacco abuse, Patient/guardian denies using alcohol, street drugs, IV drugs, tobacco products. - Family history:: not pertinent. - Hospitalizations: : No recent hospitalization is reported. Screenin:42 Abuse screen: Denies threats or abuse. Nutritional screening: No deficits noted. st1 Tuberculosis screening: No symptoms or risk factors identified. Fall Risk None identified. No fall in past 12 months (0 pts). Secondary diagnosis (15 points) impaired mobility, IV access (20 points). Ambulatory Aid- Crutches/Cane/Walker (15 pts). Gait- Weak (10 pts.). Mental Status- Oriented to own ability (0 pts). Total Stafford Fall Scale indicates High Risk Score (45 or more points). Assessment: 20:42 Reassessment: Please see triage assessment. Neuro: No deficits noted. Cardiovascular: st1 Rhythm is regular. Respiratory: Airway is patent Respiratory effort is labored, Respiratory pattern is regular, GI: No deficits noted. Musculoskeletal: the patient walks with a cane. 21:45 Reassessment: Patient and/or family updated on plan of care and expected duration. Pain vc1 level reassessed. Patient is alert, oriented x 3, equal unlabored respirations, skin warm/dry/pink. Patient states feeling better. Patient states symptoms have improved. 22:19 Reassessment:. vc1 Vital Signs: 20:22 BP 184 / 84; Pulse 67; Resp 16; Temp 97.5; Pulse Ox 99% on R/A; Weight 90.72 kg; Height st1 6 ft. 3 in. (190.50 cm); Pain 0/10; 20:54 BP 146 / 66; Pulse 63; Resp 24; Temp 97.7; Pulse Ox 97% ; st1 22:50 BP 156 / 77; Pulse 69; Resp 18; Pulse Ox 99% on R/A; ke1 20:22 Body Mass Index 25.00 (90.72 kg, 190.50 cm) st1 ED Course: 20:04 Patient arrived in ED. es 20:05 Ralph Martins MD is Private Physician. es 20:10 Arsen Cortez MD is Attending Physician. rn 20:18 Mona Barrios RN is Primary Nurse. vc1 20:23 Triage completed. st1 20:23 Arm band placed on right wrist. st1 20:41 Inserted saline lock: 20 gauge in right forearm, using aseptic technique. Blood vc1 collected. 20:42 Patient has correct armband on for positive identification. Bed in low position. Call st1 light in reach. Side rails up X 1. Pulse ox on. NIBP on. Door closed. Verbal reassurance given. Head of bed elevated. 20:58 XRAY Chest (1 view) In Process Unspecified. EDMS 21:44 CT Head Brain wo Cont In Process Unspecified. EDMS 21:51 CT Chest For PE Angio In Process Unspecified. EDMS 22:50 No provider procedures requiring assistance completed. IV discontinued. ke1 Administered Medications: 20:30 Drug: Xopenex (levalbuterol) 1.25 mg Route: Inhalation; vc1 20:42 Drug: NS 0.9% 500 ml Route: IV; Rate: bolus; Site: right forearm; vc1 Point of Care Testing: Guaiac: 21:24 Stool Guaiac: Negative; Stool Hemoccult Control: Pass; rn Outcome: 22:18 Discharge ordered by . rn 22:51 Discharged to home ambulatory. ke1 22:51 Condition: good 22:51 Discharge instructions given to patient. 22:52 Patient left the ED. ke1 Signatures: Dispatcher [employer] EDMS Erica Church Roman, MD MD rn Tingle, Shellie, RN RN st1 Mona Barrios RN RN vc1 Leo Rodriguez RN RN ke1 Corrections: (The following items were deleted from the chart) 21:28 20:54 BP 146 / 66; Pulse 63bpm; Resp 24bpm; Pulse Ox 97%; vc1 st1
--- NOTE | 2021-12-30 22:19 | EDPHYS ---
Physician Documentation [facility] Name: Miguel Hogan Age: 86 yrs Sex: Male : 1935 Arrival Date: 12/30/2021 Time: 20:04 Bed 19 Private MD: Ralph Martins C ED Physician Arsen Cortez HPI: 12/30 20:25 This 86 yrs old Male presents to ER via Ambulatory with complaints of Numbness, rn Dizziness, Shortness Of Breath. 20:26 Pt reports generalized weakness and fatigue, began this AM/noon, reports "doesn't feel rn well". Called his cancer doctor at [facility] and told to come in for evaluation. Reports increased sob over last day or so, no chest pain or pleuritic pain, no abd pain/vomiting. Reports only one episode of loose stool today but not dark/black/bloody. Denies medication changes. Reports last immunotherapy treatment was in November. Told somewhat recently had fluid in lungs but got better. Reports "low sodium" last time he felt this way. No fever/cough. . Onset: The symptoms/episode began/occurred this morning. Severity of symptoms: At their worst the symptoms were moderate in the emergency department the symptoms are unchanged. The patient has not experienced similar symptoms in the past. The patient has been recently seen by a physician:. Historical: - Allergies: 20:23 Etodolac; st1 20:23 telbivudine; st1 - PMHx: 20:23 Hyperlipidemia; Hypertension; skin cancer; st1 - Immunization history:: Adult Immunizations up to date. - Social history:: Smoking status: Patient/guardian denies using tobacco, but has a distant history of tobacco abuse, Patient/guardian denies using alcohol, street drugs, IV drugs, tobacco products. - Family history:: not pertinent. - Hospitalizations: : No recent hospitalization is reported. ROS: 20:26 Constitutional: Negative for fever, chills, and weight loss, Eyes: Negative for injury, rn pain, redness, and discharge, ENT: Negative for injury, pain, and discharge, Neck: Negative for injury, pain, and swelling, Cardiovascular: Negative for chest pain, palpitations, and edema, Respiratory: + sob Abdomen/GI: Negative for abdominal pain, nausea, vomiting, diarrhea, and constipation, Back: Negative for injury and pain, : Negative for injury, bleeding, discharge, and swelling, MS/Extremity: Negative for injury and deformity, Skin: Negative for injury, rash, and discoloration, Neuro: Negative for seizure, + numbness and tingling of left hand and left foot (states present for 1 month) Exam: 20:26 Constitutional: This is a well developed, well nourished patient who is awake, alert, rn and in no acute distress. Head/Face: Normocephalic, atraumatic. Eyes: Pupils equal round and reactive to light, extra-ocular motions intact. Periorbital areas with no swelling, redness, or edema. ENT: + dry MM Neck: Trachea midline, no masses palpated, and no cervical lymphadenopathy. Supple, full range of motion without nuchal rigidity, or vertebral point tenderness. No Meningismus. Cardiovascular: Regular rate and irregular rhythm. No pulse deficits. Respiratory: + mild tachypnea, diminished breath sounds bilateral bases Abdomen/GI: Soft, non-tender Back: No spinal tenderness. No costovertebral tenderness. Full range of motion. Skin: Warm, dry MS/ Extremity: Pulses equal, no cyanosis. Neuro: Awake and alert, GCS 15, oriented to person, place, time, and situation. + left upper facial weakness, no lower facial weakness. Motor strength 4/5 in all extremities without drift. Sensory grossly intact. Cerebellar exam normal. 20:53 ECG was reviewed by the Attending Physician. rn Vital Signs: 20:22 BP 184 / 84; Pulse 67; Resp 16; Temp 97.5; Pulse Ox 99% on R/A; Weight 90.72 kg; Height st1 6 ft. 3 in. (190.50 cm); Pain 0/10; 20:54 BP 146 / 66; Pulse 63; Resp 24; Temp 97.7; Pulse Ox 97% ; st1 22:50 BP 156 / 77; Pulse 69; Resp 18; Pulse Ox 99% on R/A; ke1 20:22 Body Mass Index 25.00 (90.72 kg, 190.50 cm) st1 MDM: 20:10 Patient medically screened. rn 21:28 ED course: Pt feels better after only fluids, RR improved as well, family member rn stopped me outside of room to tell me he has really bad anxiety and wonders if some of this is his anxiety. Rectal exam neg hemoccult. . 22:17 Differential Diagnosis Pt feels much better, back to baseline with just IV hydration. rn No acute findings on CT head or chest, neg for PE, mass has actually decreased in size. Will call his oncologist in AM, and return precautions given and understood.. Data reviewed: vital signs, nurses notes, lab test result(s), EKG, radiologic studies, CT scan, plain films, and as a result, I will discharge patient. Data interpreted: Pulse oximetry: on room air is 97 %. Interpretation: normal. Counseling: I had a detailed discussion with the patient and/or guardian regarding: the historical points, exam findings, and any diagnostic results supporting the discharge/admit diagnosis, lab results, radiology results, the need for outpatient follow up, to return to the emergency department if symptoms worsen or persist or if there are any questions or concerns that arise at home. Response to treatment: the patient's symptoms have markedly improved after treatment, the patient's condition has returned to base line, the patient is now symptom free, and as a result, I will discharge patient. Special discussion: I discussed with the patient/guardian in detail that at this point there is no indication for admission to the hospital. It is understood, however, that if the symptoms persist or worsen the patient needs to return immediately for re-evaluation. 12/30 20:20 Order name: Basic Metabolic Panel; Complete Time: 12/30 20:20 Order name: CBC with Diff; Complete Time: :12/30 20:20 Order name: Hepatic Function; Complete Time: 12/30 20:20 Order name: Lipase; Complete Time: :12/30 20:20 Order name: Magnesium; Complete Time: :12/30 20:20 Order name: Protime (+inr); Complete Time: :12/30 20:20 Order name: Ptt, Activated; Complete Time: 12/30 20:20 Order name: CT Head Brain wo Cont; Complete Time: 22:04 12/30 20:20 Order name: XRAY Chest (1 view); Complete Time: 21:12/30 20:20 Order name: CT Chest For PE Angio; Complete Time: :12/30 20:20 Order name: BNP; Complete Time: 21: rn 12/30 20:20 Order name: Troponin High Sensitivity; Complete Time: : rn 12/30 22:02 Order name: Urine Dipstick-Ancillary; Complete Time: 22:04 EDMS 12/30 20:20 Order name: EKG; Complete Time: 20:21 rn 12/30 20:20 Order name: Cardiac monitoring; Complete Time: 20:54 rn 12/30 20:20 Order name: EKG - Nurse/Tech; Complete Time: 20:54 rn 12/30 20:20 Order name: IV Saline Lock; Complete Time: 20:54 rn 12/30 20:20 Order name: Labs collected and sent; Complete Time: :54 rn 12/30 20:20 Order name: O2 Per Protocol; Complete Time: :54 rn 12/30 20:20 Order name: O2 Sat Monitoring; Complete Time: :54 rn 12/30 20:20 Order name: Urine Dipstick-Ancillary (obtain specimen); Complete Time: 21:58 rn EC:53 Rate is 60 beats/min. Rhythm is irregular. Left axis deviation noted. QRS is positive rn in lead I and negative in lead aVF. QRS interval is prolonged at 148 msec. QT interval is normal. No Q waves. T waves are Inverted in leads V1, V2, V3. No ST changes noted. Clinical impression: Atrial Fibrillation. Interpreted by me. Reviewed by me. Administered Medications: 20:30 Drug: Xopenex (levalbuterol) 1.25 mg Route: Inhalation; vc1 20:42 Drug: NS 0.9% 500 ml Route: IV; Rate: bolus; Site: right forearm; vc1 Point of Care Testing: Guaiac: 21:24 Stool Guaiac: Negative; Stool Hemoccult Control: Pass; rn Disposition Summary: 12/30/21 22:18 Discharge Ordered Location: Home rn Problem: new rn Symptoms: have improved rn Condition: Stable rn Diagnosis - Dehydration rn - Other malaise and fatigue rn - Dizziness and giddiness rn Followup: rn - With: Private Physician - When: As needed - Reason: Recheck today's complaints, Re-evaluation by your physician Discharge Instructions: - Discharge Summary Sheet rn - Dehydration, Adult rn - Dizziness rn Forms: - Medication Reconciliation Form rn - Thank You Letter rn - Antibiotic pattern and chain maker - Prescription Opioid Use rn Signatures: Dispatcher [employer] EDArsen Bryson MD MD rn Tingle, Shellie, RN RN st1 Mona Barrios, RN RN vc1 Corrections: (The following items were deleted from the chart) 20:29 20:26 Constitutional: Negative for fever, chills, and weight loss, Eyes: Negative for rn injury, pain, redness, and discharge, ENT: Negative for injury, pain, and discharge, Neck: Negative for injury, pain, and swelling, Cardiovascular: Negative for chest pain, palpitations, and edema, Respiratory: + sob Abdomen/GI: Negative for abdominal pain, nausea, vomiting, diarrhea, and constipation, Back: Negative for injury and pain, : Negative for injury, bleeding, discharge, and swelling, MS/Extremity: Negative for injury and deformity, Skin: Negative for injury, rash, and discoloration, Neuro: Negative for seizure, + numbness and tingling of left hand and left foot. rn 20:53 20:26 Constitutional: This is a well developed, well nourished patient who is awake, rn alert, and in no acute distress. Head/Face: Normocephalic, atraumatic. Eyes: Pupils equal round and reactive to light, extra-ocular motions intact. Periorbital areas with no swelling, redness, or edema. ENT: + dry MM Neck: Trachea midline, no masses palpated, and no cervical lymphadenopathy. Supple, full range of motion without nuchal rigidity, or vertebral point tenderness. No Meningismus. Cardiovascular: Regular rate and rhythm. No pulse deficits. Respiratory: + mild tachypnea, diminished breath sounds bilateral bases Abdomen/GI: Soft, non-tender Back: No spinal tenderness. No costovertebral tenderness. Full range of motion. Skin: Warm, dry MS/ Extremity: Pulses equal, no cyanosis. Neuro: Awake and alert, GCS 15, oriented to person, place, time, and situation. + left upper facial weakness, no lower facial weakness. Motor strength 4/5 in all extremities without drift. Sensory grossly intact. Cerebellar exam normal. rn
[2021-12-31 00:37] VITALS: TEMP 97.7
[2021-12-31 00:38] VITALS: BP 156/77; O2SAT 99
--- NOTE | 2021-12-31 12:34 | EKG ---
Test Date: 2021-12-30 Test Time: 20:45:52 Manager Content: DEVIKA MEASUREMENT RESULTS: Intervals: Rate: 60 ID: [id number] QT: 442 QTc: 442 [place]: P: ID: [id number] T: 47 INTERPRETIVE STATEMENTS: Atrial fibrillation Left axis deviation Right bundle branch block Moderate voltage criteria for LVH, may be normal variant Abnormal ECG Compared to ECG 10/08/2018 13:26:12 Left-axis deviation now present Left ventricular hypertrophy now present Left anterior fascicular block no longer present Bifascicular block no longer present Myocardial infarct finding no longer present Electronically Signed On 12-31-21 12:33:08 CDT by Baldemar Kohli
== END 2021-12-30 22:52 | disposition home or self-care (01) ==
LOC: ER 20:02
DX: E86.0 Dehydration (principal); R53.81 Other malaise; R53.83 Other fatigue; E78.5 Hyperlipidemia, unspecified; I10 Essential (primary) hypertension; Z85.828 Personal history of other malignant neoplasm of skin; Z88.8 Allergy status to other drugs, medicaments and biological substances
CPT/HCPCS: 93005; 85025; 80048; 36415; 83735; 85610; 80076; 85730; 81003; 84484; 83690; 83880; 70450; 71275; 71045; 99284; Q9967; J7040

== ENCOUNTER 2022-01-26 08:45 | Inpatient (IN) | payer OTHER ==
--- OUTSIDE RECORDS SUMMARY | 2022-01-26 08:51 | XMS REPORT | Clinical Summary ---
:1935 Author Organization [facility] MD [facility] Address [address] [place] [address] Care Team Providers Name Role Phone Leonard Giraldo MD Primary Care Provider Torey Martins MD Unavailable Esdras Martins MD Unavailable MD Enzo Unavailable MD Emil Unavailable Allergies Active Allergy Reactions Severity Noted Date Comments Etodolac Rash Low 06/16/2016 Medications Medication Sig Dispensed Refills Start Date End Date Status atorvastatin (LIPITOR) Take 40 mg by 0 Active 40 mg tablet mouth at bedtime. apixaban (ELIQUIS) 2.5 Take 2.5 mg by 0 Active mg tablet mouth twice daily. finasteride (PROSCAR) Take 5 mg by mouth 0 Active 5 mg tablet daily. fluticasone propionate Inhale 2 sprays 0 Active (FLONASE) 50 mcg/spray into each nostril nasal spray daily. Trelegy Ellipta 1 PUFF BY MOUTH 0 03/19/2020 Active 100-62.5-25 mcg dsdv DAILY, RINSE MOUTH WITH WATER AFTER USE ALPRAZolam (XANAX) 1 Take 1 tablet by 0 10/16/2020 Active mg tablet mouth nightly as needed for sleep. furosemide (LASIX) 20 Take 1 tablet by 0 10/23/2020 Active mg tablet mouth every morning. mupirocin (BACTROBAN) Apply topically to 22 g 1 1 Active 2% affected area(s) ointmentIndications: twice daily. Basal cell carcinoma - primary Additional Information Patient not taking. Reason: Other (duplicate), Informant: Self, Reported on 01/01/2022 losartan-hydrochlorothiazide (HYZAAR) Take 1 tablet by 0 Active 100-25 mg per tabletIndications: mouth daily. hypertension carvedilol (COREG) 12.5 mg tablet 12.5 mg twice daily. 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 cholecalciferol, Take 1 tablet by 0 Active vitamin D3, (VITAMIN D3 mouth daily. ORAL) carvedilol (COREG) 25 Take 1 tablet by 0 09/19/202009/18 Discontinued (Not mg tablet mouth twice Applicab le) daily. losartan-hydrochlorothi Take 1 tablet by 0 03/03 Discontinued azide (HYZAAR) 100-25 mouth daily. (Stop Taking at mg per tablet Discha rge) azithromycin TAKE 2 TABLETS 0 03/21/202105/21 D iscontinued (Not (ZITHROMAX) 250 mg BY MOUTH TODAY, /2020 Applicable) tablet THEN TAKE 1 TABLET DAILY FOR 4 DAYS azithromycin 0 08/15/202109/18 Discon tinued (Not (ZITHROMAX) 250 mg /2020 A pplicable) tablet cephalexin (KEFLEX) 500 Take 1 capsule 20 capsule 1 09/30/202110/10 mg capsuleIndications: (500 mg) Squamous cell carcinoma mouth twice of scalp daily for 10 days. Active Problems Problem Noted [...] The patient has been on surveillance sin 2014 for a 1.4 cm right renal mass. He is under the care of his local physician. 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 01/01/2022 Hospital Encounter Lab Yarelis Morataya ANP carcinoma of lower lobe of left bonnie ng 01/01/2022 Orders Only Thoracic Medicine Nicolette Moartaya ANP 01/01/2022 Orders Only Thoracic Medicine Vijaya Maxwell, Squamous cell PharmD 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 (Primary Dx) 01/01/2022 Travel 12/30/2021 Nurse Triage Sally Smith NP 12/30/2021 Telephone Sally Smith asking to spe ak to G, [employer]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; Short ness of Breath 12/24/2021 Orders [...] dmitri g <Left> 12/23/2021 Hospital Encounter Lab Patrickenney, Pleural e ffusion DOTTIE Aguilar 12/23/2021 Ancillary Procedure Radiology Pricilla, Pleural effusion DOTTIE Aguilar 12/23/2021 Travel 12/11/2021 Telephone Thoracic Medicine Nicolette Morataya ANP 12/11/2021 Orders Only Pulmonology Toddy, Pleural effusio n DOTTIE Aguilar (Primary Dx) [...] (Primary Dx) 11/14/2021 Infusion Infusion Services Yarelis Morataya, ANP carcinoma of lower lobe of left bonnie ng (Primary Dx) 11/14/2021 Travel 11/14/2021 Orders Only Thoracic Medicine Shayy Levin MD 11/14/2021 Orders Only Thoracic Medicine Nicolette Morataya, HEMA 11/13/2021 Telemedicine Thoracic Medicine Yarelis Gay MD carcinoma, NOS of lower lobe, dmitri g <Left> 11/13/2021 Orders Only Thoracic Medicine iVjaya Maxwell, Squamous cell PharmD 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 (Primary Dx) 11/13/2021 Orders Only Thoracic Medicine Yarelis Morataya, HEMA carcinoma of lower lobe of left bonnie ng (Primary Dx) 11/13/2021 Travel 10/17/2021 Infusion Infusion Services Yarelis Gay MD 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 (Primary Dx) 10/17/2021 Telemedicine Thoracic Medicine Yarelis Gay MD carcinoma, NOS of Rafia, lower lobe, dmitri g Nicolette, ANP <Left> 10/17/2021 Travel 10/17/2021 Orders Only Thoracic [...] <Left> 10/15/2021 Travel 09/30/2021 Office Visit Rakesh Stein, Squamous cell c arcinoma of forehead (Primary [...] Dx) 09/19/2021 Travel 09/18/2021 Office Visit Thoracic Medicine Yarelis Gay MD carcinoma, NOS of lower lobe, dmitri g <Left> (Primary Dx) 09/18/2021 Hospital Encounter Lab Salazar Gay MD 09/18/2021 Travel 09/01/2021 Orders Only Rakesh Stein, Squamous cell c [...] PharmD 08/21/2021 Orders Only Thoracic Medicine Nicolette Morataya ANP 08/21/2021 Orders Only Thoracic Medicine Annalise Paris, DenizD 08/21/2021 Travel 08/20/2021 Ancillary Procedure Radiology Squamous cell carcinoma, NOS of lower lobe, dmitri g <Left> 08/20/2021 Travel 07/25/2021 Infusion Infusion Services Squamous c ell carcinoma, NOS of lower lobe, lung <Left> (Primary Dx); Squamous cell c arcinoma of lower lobe of left lung 07/25/2021 Telephone Infusion Services Yun Steele, Follow-up (chemo RN call back) 07/25/2021 Travel 07/24/2021 Office Visit Thoracic Medicine Yarelis Gay MD carcinoma, NOS of lower lobe, dmitri g <Left> (Primary Dx) 07/24/2021 Hospital Encounter Lab Squamous cell carcinoma, NOS of lower lobe, dmitri g <Left> 07/24/2021 Orders Only Thoracic Medicine Vijaya Maxwell, PharmD 07/24/2021 Travel 06/26/2021 Infusion Infusion Services Yarelis aGy MD 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 (Primary Dx) 06/26/2021 Office Visit Thoracic Medicine Yarelis Gay MD 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 (Primary Dx) 06/26/2021 Travel 06/26/2021 Orders Only Thoracic Medicine Salazar Gay MD 06/25/2021 Ancillary Procedure Radiology Yarelis Morataya ANP carcinoma of lower lobe [...] (Primary Dx) 05/01/2021 Travel 04/29/2021 Telephone Radha Foote RN 04/24/2021 Office Visit Thoracic Yarelis Robles MD 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 (Primary Dx) 04/24/2021 Orders Only Thoracic Medicine Nicolette Morataya ANP 04/24/2021 Orders Only Thoracic Medicine Alejandro Dillard, PharmD 04/24/2021 Travel 04/23/2021 Ancillary Procedure Radiology Yarelis Morataya ANP carcinoma of lower lobe [...] Dx) 03/27/2021 Hospital Encounter Lab Yarelis Gay MD carcinoma [...] Soraya Rosas RN 03/08/2021 Orders Only Rakesh Stein Squamous cell c arcinoma of skin of neck (Primary Dx); MD Claudia Squamous cell c arcinoma of forehead; Squamous cell c arcinoma of skin of cheek 03/07/2021 Telephone Dermatology Milagro Combs MD 03/06/2021 Infusion Infusion Services Yarelis Gay MD 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 (Primary Dx) 03/06/2021 Office Visit Thoracic Medicine Yarelis Gay MD 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 (Primary Dx) 03/06/2021 Consult Dermatology Deidra, Neoplasm of unc ertain behavior of skin (Primary Dx); Salazar Cisse MD Multiple actinic keratoses; Elza, Squamous cell c arcinoma of lower lobe of left lung MD Nahed 03/06/2021 Ancillary Procedure Radiology Yarelis Gay MD 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 03/06/2021 Hospital Encounter Lab Yarelis Gay MD 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 03/06/2021 Orders Only Thoracic Medicine Vijaya Maxwell, PharmD 03/06/2021 Travel 03/02/2021 Travel 03/01/2021 - Hospital Encounter GIM/Phase 1 Vu, Trien B, Hyposmola lity and/or hyponatremia (Primary Dx); 03/03/2021 Diarrhea; Noe James MD Weakness; Adama Steen, 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; Hypertension 03/01/2021 Travel 03/01/2021 Telephone Thoracic Medicine Angelica Rosas, RN 03/01/2021 Telephone Thoracic Medicine Ralph, Ronald (jessica Dewitt, landmen) 02/06/2021 Infusion Infusion Services Yarelis Morataya ANP [...] ANP 02/06/2021 Orders Only Thoracic Medicine Vijaya Maxwell, Squamous cell PharmD 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 (Primary Dx) 02/06/2021 Travel after 01/26/2021 Immunizations Name Administration Dates Next Due Influenza Whole 06/12/2021 Influenza, Quadrivalent 08/13/2019 Influenza, Unspecified 08/31/2018 Moderna SARS-CoV-2 Booster 11/11/2021 Vaccination (50 mcg/0.25 mL) Moderna SARS-CoV-2 Vaccination 12/01/2021, 06/20/2021, 11/15, 10/18/2020 Tdap 10/15/2019 Surgical History Surgery Date Site/Laterality Comments TOTAL KNEE ARTHROPLASTY Bilateral THROMBOENDARTERECTOMY W/PATCH Ca rotid GRAFT; CAROTID, VERT, SUBCLAV, NECK INCISION REPAIR OF REDUCIBLE INGUINAL Bilateral HERNIA SKIN CANCER EXCISION MOHS excisi on for BCC from face CATARACT EXTRACTION, BILATERAL NV [facility] EBUS GUIDED SAMPL 3/> 11/08/2018 N/A Procedure: BRONCHOSCOPY NODE STATION/STRUX WITH EBUS 3 O R MORE NODES; Surgeon: Thor Agarwal MD; Location: [facility] PROC; Service: PULMONARY NV [facility] EBUS DX/TX 11/08/2018 N/A Pro cedure: BRONCHOSCOPY INTERVENTION PERPH LES WITH EBUS PERIPHERAL LESION-RADIAL NV OBE; Surgeon: Sandra Agarwal MD; Location: [facility] PROC; Service: PULMONARY NV REMOVE THOR LYMPH NODES RAD 12/15/2019 Chest/Left P rocedure: THORACIC REGNL LYMPHADENECTOMY BY THORACOTOMY, MED IASTINAL AND REGIONAL LYMPHADENECTOMY; Surgeon: Flavio Benson MD; Location: MAIN O R; Service: THRCV - THORACIC SURGERY Medical devices from this surgery are in t he Implants section . NV REMOVAL OF LUNG,SEGMENTECTOMY 12/15/2019 Chest/Left Procedure: SEGMENTECTOMY OF LUNG; Surgeo n: Flavio Benson MD; Loc ation: MAIN OR; Servic e: THRCV - THORACIC SURGERY Medical devices from this surgery are in t he Implants section . NV INJECTION AA&/STRD INTERCOSTAL 12/15/2019 Chest/Left Procedure: REGIONAL [...] been in contact with No / Unsure 01/07/2022 10:27 AM CDT someone who was confirmed or suspected to have Coronavirus / COVID-19? Obstetrics History Last Filed Vital Signs Vital Sign Reading Time Taken Comments Blood Pressure 144/66 01/07/2022 11:04 AM CDT Pulse 55 01/07/2022 11:04 AM RN notified CDT Temperature 36.6 C (97.9 F) 01/07/2022 11:04 AM CDT Respiratory Rate 18 01/07/2022 11:04 AM CDT Oxygen Saturation 95% 01/07/2022 11:04 AM CDT Inhaled Oxygen Concentration - - Weight 90.3 kg (199 lb 1.2 oz) 01/07/2022 11:04 AM CDT Height 183 cm (6' 0.05") 03/06/2021 7:07 AM CDT Body Mass Index 26.96 03/06/2021 7:07 AM CDT Plan of Treatment Date Type Specialty Care Team Description 02/04/2022 Appointment Lab Salazar Gay MD [address], [place] [address] (Meagan hernandez) 02/04/2022 Office Visit Thoracic Medicine Nacho Gay MD [address] [address] (Meagan hernandez) 02/04/2022 Infusion Infusion Services Nacho Gay MD [address] [place] [address] (Meagan hernandez) Health Maintenance Due Date Last Done Comments COVID-19 Vaccination Completed 12/01/2021, 11/11/2021, , Additional history exists Implants Implanted Type Area Global Regulatory Lead Device Shelf Model / Identifier Expiration Serial / Date Lot Cath Thoracic Str 28fr - Sn/A LDA Left: [employer] 08/12/2022 [id number] / Implanted: Qty: 1 on 12/15/2019 by Flavio Benson MD at [facility] N/A / [id number] Stent Description: AAA stent Procedures Procedure Name Priority Date/Time Associated Comments Diagnosis FRACTIONATED BILIRUBIN Routine 01/01/2022 9:58 Squamous cell Results for this AM CDT carcinoma, NOS of procedure are in lower lobe, lung the results <Left> section. TOTAL PROTEIN Routine 01/01/2022 9:58 Squamous cell Results f or this AM CDT carcinoma, NOS of procedure are in lower lobe, lung the results <Left> section. ASPARTATE AMINOTRANSFERASE Routine 01/01/2022 9:58 Squamous c ell Results for this AM CDT carcinoma, NOS of procedure are in lower lobe, lung the results <Left> section. ALANINE AMINOTRANSFERASE Routine 01/01/2022 9:58 Squamous olga l Results for this AM CDT carcinoma, NOS of procedure are in lower lobe, lung the results <Left> section. ALKALINE PHOSPHATASE Routine 01/01/2022 9:58 Squamous cell Re sults for this AM CDT carcinoma, NOS of procedure are in lower lobe, lung the results <Left> section. ALBUMIN LEVEL Routine 01/01/2022 9:58 Squamous cell Results f or this AM CDT carcinoma, NOS of procedure are in lower lobe, lung the results <Left> section. CALCIUM LEVEL TOTAL Routine 01/01/2022 9:58 Squamous cell Res ults for this AM CDT carcinoma, NOS of procedure are in lower lobe, lung the results <Left> section. .GLOMERULAR FILTRATION RATE Routine 01/01/2022 9:58 Squamous cell Results for this AM CDT carcinoma, NOS of procedure are in lower lobe, lung the results <Left> section. SERUM CREATININE Routine 01/01/2022 9:58 Squamous cell Result s for this AM CDT carcinoma, NOS of procedure are in lower lobe, lung the results <Left> section. ELECTROLYTE PANEL Routine 01/01/2022 9:58 Squamous cell Resul ts for this AM CDT carcinoma, NOS of procedure are in lower lobe, lung the results <Left> section. BLOOD UREA NITROGEN Routine 01/01/2022 9:58 Squamous cell Res ults for this AM CDT carcinoma, NOS of procedure are in lower lobe, lung the results <Left> section. GLUCOSE LEVEL Routine 01/01/2022 9:58 Squamous cell Results f or this AM CDT carcinoma, NOS of procedure are in lower lobe, lung the results <Left> section. MANUAL DIFFERENTIAL Routine 01/01/2022 9:58 Squamous cell Res ults for this AM CDT carcinoma, NOS of procedure are in lower lobe, lung the results <Left> section. Results CBC Routine 01/01/2022 9:58 Squamous cell Results fo r this AM CDT carcinoma, NOS of procedure are in lower lobe, lung the results <Left> section. URIC ACID Routine 01/01/2022 9:58 Squamous cell Results fo r this AM CDT carcinoma of procedure are i n lower lobe of the results left lung section. THYROID STIMULATING HORMONE Routine 01/01/2022 9:58 Squamous cell Results for this AM CDT carcinoma of procedure are i n lower lobe of the results left lung section. TOTAL T3 Routine 01/01/2022 9:58 Squamous cell Results fo r this AM CDT carcinoma of procedure are i n lower lobe of the results left lung section. MAGNESIUM LEVEL Routine 01/01/2022 9:58 Squamous cell Results for this AM CDT carcinoma of procedure are i n lower lobe of the results left lung section. FREE THYROXINE Routine 01/01/2022 9:58 Squamous cell Results for this AM CDT carcinoma of procedure are i n lower lobe of the results left lung section. COMPREHENSIVE METABOLIC Routine 01/01/2022 9:58 Squamous cell PANEL AM CDT carcinoma of lower lobe of left lung COMPLETE BLOOD COUNT W/ Routine 01/01/2022 9:58 Squamous cell DIFFERENTIAL AM CDT carcinoma of lower lobe of left lung ECHOCARDIOGRAM 2D COMPLETE Routine 12/23/2021 3:33 Squamous [...] c ell Results for this STRATEGY AM [employer] carcinoma, NOS of procedure are in lower lobe, lung the results <Left> section. FRACTIONATED BILIRUBIN Routine 12/09/2021 9:00 Squamous cell Results for this AM [employer] carcinoma, NOS of procedure are in lower lobe, lung the results <Left> section. TOTAL PROTEIN Routine 12/09/2021 9:00 Squamous cell Results f or this AM [employer] carcinoma, NOS of procedure are in lower lobe, lung the results <Left> section. ASPARTATE AMINOTRANSFERASE Routine 12/09/2021 9:00 Squamous c ell Results for this AM [employer] carcinoma, NOS of procedure are in lower lobe, lung the results <Left> section. ALANINE AMINOTRANSFERASE Routine 12/09/2021 9:00 Squamous olga l Results for this AM [employer] carcinoma, NOS of procedure are in lower lobe, lung the results <Left> section. ALKALINE PHOSPHATASE Routine 12/09/2021 9:00 Squamous cell Re sults for this AM [employer] carcinoma, NOS of procedure are in lower lobe, lung the results <Left> section. ALBUMIN LEVEL Routine 12/09/2021 9:00 Squamous cell Results f or this AM [employer] carcinoma, NOS of procedure are in lower lobe, lung the results <Left> section. CALCIUM LEVEL TOTAL Routine 12/09/2021 9:00 Squamous cell Res ults for this AM [employer] carcinoma, NOS of procedure are in lower lobe, lung the results <Left> section. .GLOMERULAR FILTRATION RATE Routine 12/09/2021 9:00 Squamous cell Results for this AM [employer] carcinoma, NOS of procedure are in lower lobe, lung the results <Left> section. SERUM CREATININE Routine 12/09/2021 9:00 Squamous cell Result s for this AM [employer] carcinoma, NOS of procedure are in lower lobe, lung the results <Left> section. ELECTROLYTE PANEL Routine 12/09/2021 9:00 Squamous cell Resul ts for this AM [employer] carcinoma, NOS of procedure are in lower lobe, lung the results <Left> section. BLOOD UREA NITROGEN Routine 12/09/2021 9:00 Squamous cell Res ults for this AM [employer] carcinoma, NOS of procedure are in lower lobe, lung the results <Left> section. GLUCOSE LEVEL Routine 12/09/2021 9:00 Squamous cell Results f or this AM [employer] carcinoma, NOS of procedure are in lower lobe, lung the results <Left> section. MANUAL DIFFERENTIAL Routine 12/09/2021 9:00 Squamous cell Res ults for this AM [employer] carcinoma, NOS of procedure are in lower lobe, lung the results <Left> section. Results CBC Routine 12/09/2021 9:00 Squamous cell Results fo r this AM [employer] carcinoma, NOS of procedure are in lower lobe, lung the results <Left> section. FREE THYROXINE Routine 12/09/2021 9:00 Squamous cell Results for this AM [employer] carcinoma of procedure are i n lower lobe of the results left lung section. THYROID STIMULATING HORMONE Routine 12/09/2021 9:00 Squamous cell Results for this AM [employer] carcinoma of procedure are i n lower lobe of the results left lung section. MAGNESIUM LEVEL Routine 12/09/2021 9:00 Squamous cell Results for this AM [employer] carcinoma of procedure are i n lower lobe of the results left lung section. COMPREHENSIVE METABOLIC Routine 12/09/2021 9:00 Squamous cell PANEL AM [employer] carcinoma of lower lobe of left lung COMPLETE BLOOD COUNT W/ Routine 12/09/2021 9:00 Squamous cell DIFFERENTIAL AM [employer] carcinoma of lower lobe of left lung GENERAL LABORATORY ADD ON STAT 11/13/2021 3:45 Squamous ce ll Results for this TEST PM [employer] carcinoma of procedure are i n lower lobe of the results left lung section. THYROID STIMULATING HORMONE Routine 11/13/2021 8:54 Results for this AM [employer] procedure are i n the results section. FREE THYROXINE Routine 11/13/2021 8:54 Results f or this AM [employer] procedure are i n the results section. MANUAL DIFFERENTIAL Routine 11/13/2021 8:54 Squamous cell Res ults for this AM [employer] carcinoma, NOS of procedure are in lower lobe, lung the results <Left> section. Results CBC Routine 11/13/2021 8:54 Squamous cell Results fo r this AM [employer] carcinoma, NOS of procedure are in lower lobe, lung the results <Left> section. FRACTIONATED BILIRUBIN Routine 11/13/2021 8:54 Squamous cell Results for this AM [employer] carcinoma, NOS of procedure are in lower lobe, lung the results <Left> section. TOTAL PROTEIN Routine 11/13/2021 8:54 Squamous cell Results f or this AM [employer] carcinoma, NOS of procedure are in lower lobe, lung the results <Left> section. ASPARTATE AMINOTRANSFERASE Routine 11/13/2021 8:54 Squamous c ell Results for this AM [employer] carcinoma, NOS of procedure are in lower lobe, lung the results <Left> section. ALANINE AMINOTRANSFERASE Routine 11/13/2021 8:54 Squamous olga l Results for this AM [employer] carcinoma, NOS of procedure are in lower lobe, lung the results <Left> section. ALKALINE PHOSPHATASE Routine 11/13/2021 8:54 Squamous cell Re sults for this AM [employer] carcinoma, NOS of procedure are in lower lobe, lung the results <Left> section. ALBUMIN LEVEL Routine 11/13/2021 8:54 Squamous cell Results f or this AM [employer] carcinoma, NOS of procedure are in lower lobe, lung the results <Left> section. CALCIUM LEVEL TOTAL Routine 11/13/2021 8:54 Squamous cell Res ults for this AM [employer] carcinoma, NOS of procedure are in lower lobe, lung the results <Left> section. .GLOMERULAR FILTRATION RATE Routine 11/13/2021 8:54 Squamous cell Results for this AM [employer] carcinoma, NOS of procedure are in lower lobe, lung the results <Left> section. SERUM CREATININE Routine 11/13/2021 8:54 Squamous cell Result s for this AM [employer] carcinoma, NOS of procedure are in lower lobe, lung the results <Left> section. ELECTROLYTE PANEL Routine 11/13/2021 8:54 Squamous cell Resul ts for this AM [employer] carcinoma, NOS of procedure are in lower lobe, lung the results <Left> section. BLOOD UREA NITROGEN Routine 11/13/2021 8:54 Squamous cell Res ults for this AM [employer]ER carcinoma, NOS of procedure are in lower lobe, lung the results <Left> section. GLUCOSE LEVEL Routine 11/13/2021 8:54 Squamous cell Results f or this AM [employer] carcinoma, NOS of procedure are in lower lobe, lung the results <Left> section. MAGNESIUM LEVEL Routine 11/13/2021 8:54 Squamous cell Results for this AM [employer] carcinoma of procedure are i n lower lobe of the results left lung section. COMPREHENSIVE METABOLIC Routine 11/13/2021 8:54 Squamous cell PANEL AM [employer] carcinoma of lower lobe of left lung COMPLETE BLOOD COUNT W/ Routine 11/13/2021 8:54 Squamous cell DIFFERENTIAL AM [employer] carcinoma of lower lobe of left lung FRACTIONATED BILIRUBIN Routine 10/15/2021 10:56 R esults for this AM [employer] procedure are i n the results section. TOTAL PROTEIN Routine 10/15/2021 10:56 Results fo r this AM [employer] procedure are i n the results section. ASPARTATE AMINOTRANSFERASE Routine 10/15/2021 10:56 Results for this AM [employer] procedure are i n the results section. ALANINE AMINOTRANSFERASE Routine 10/15/2021 10:56 Results for this AM [employer] procedure are i n the results section. ALKALINE PHOSPHATASE Routine 10/15/2021 10:56 Res ults for this AM [employer] procedure are i n the results section. ALBUMIN LEVEL Routine 10/15/2021 10:56 Results fo r this AM [employer] procedure are i n the results section. CALCIUM LEVEL TOTAL Routine 10/15/2021 10:56 Resu lts for this AM [employer] procedure are i n the results section. .GLOMERULAR FILTRATION RATE Routine 10/15/2021 10:56 Results for this AM [employer] procedure are i n the results section. SERUM CREATININE Routine 10/15/2021 10:56 Results for this AM [employer] procedure are i n the results section. ELECTROLYTE PANEL Routine 10/15/2021 10:56 Result s for this AM [employer] procedure are i n the results section. BLOOD UREA NITROGEN Routine 10/15/2021 10:56 Resu lts for this AM [employer] procedure are i n the results section. GLUCOSE LEVEL Routine 10/15/2021 10:56 Results fo r this AM STRUCTURAL [employer] procedure are i n the results section. MANUAL DIFFERENTIAL Routine 10/15/2021 10:56 Resu lts for this AM [employer] procedure are i n the results section. Results CBC Routine 10/15/2021 10:56 Results for this AM [employer] procedure are i n the results section. FREE THYROXINE Routine 10/15/2021 10:56 Results f or this AM [employer] procedure are i n the results section. THYROID STIMULATING HORMONE Routine 10/15/2021 10:56 Results for this AM [employer] procedure are i n the results section. MAGNESIUM LEVEL Routine 10/15/2021 10:56 Results for this AM [employer] procedure are i n the results section. COMPREHENSIVE METABOLIC Routine 10/15/2021 10:56 PANEL AM [employer]URAL [employer] COMPLETE BLOOD COUNT W/ Routine 10/15/2021 10:56 DIFFERENTIAL AM [employer]URAL [employer] CT CHEST W CONTRAST Routine 10/15/2021 9:56 Squamous cell Res ults for this AM [employer] carcinoma, NOS of procedure are in lower lobe, lung the results <Left> section. POC CREATININE Routine 10/15/2021 9:21 Results f or this AM [employer] procedure are i n the results section. PATHOLOGY BIOPSY Routine 09/30/2021 8:31 Basal cell Results for this INTERPRETATION AM [employer]URAL [employer] carcinoma of procedure are in anterior chest the results Basal cell section. carcinoma of back EXCISION Routine 09/30/2021 8:30 Basal cell Results for this AM [employer] carcinoma of back procedure are in the results section. EXCISION Routine 09/30/2021 8:29 Basal cell Results for this AM [employer] carcinoma of procedure are i n anterior chest the results section. MOHS SITE 1 Routine 09/30/2021 8:29 Squamous cell Results fo r this AM [employer] carcinoma of procedure are i n forehead the results section. MOHS SITE 1 Routine 09/30/2021 8:29 Squamous cell Results fo r this AM [employer] carcinoma of procedure are i n scalp the results section. FRACTIONATED BILIRUBIN Routine 09/18/2021 10:30 R esults for this AM [employer] procedure are i n the results section. TOTAL PROTEIN Routine 09/18/2021 10:30 Results fo r this AM [employer]URAL STEEL [employer] procedure are i n the results section. ASPARTATE AMINOTRANSFERASE Routine 09/18/2021 10:30 Results for this AM [employer] procedure are i n the results section. ALANINE AMINOTRANSFERASE Routine 09/18/2021 10:30 Results for this AM [employer] procedure are i n the results section. ALKALINE PHOSPHATASE Routine 09/18/2021 10:30 Res ults for this AM [employer] procedure are i n the results section. ALBUMIN LEVEL Routine 09/18/2021 10:30 Results fo r this AM [employer] procedure are i n the results section. CALCIUM LEVEL TOTAL Routine 09/18/2021 10:30 Resu lts for this AM [employer] procedure are i n the results section. .GLOMERULAR FILTRATION RATE Routine 09/18/2021 10:30 Results for this AM [employer] procedure are i n the results section. SERUM CREATININE Routine 09/18/2021 10:30 Results for this AM [employer] procedure are i n the results section. ELECTROLYTE PANEL Routine 09/18/2021 10:30 Result s for this AM [employer] procedure are i n the results section. BLOOD UREA NITROGEN Routine 09/18/2021 10:30 Resu lts for this AM [employer] procedure are i n the results section. GLUCOSE LEVEL Routine 09/18/2021 10:30 Results fo r this AM [employer] procedure are i n the results section. MANUAL DIFFERENTIAL Routine 09/18/2021 10:30 Resu lts for this AM [employer] procedure are i n the results section. Results CBC Routine 09/18/2021 10:30 Results for this AM [employer] STE[employer] procedure are i n the results section. FREE THYROXINE Routine 09/18/2021 10:30 Results f or this AM [employer] procedure are i n the results section. THYROID STIMULATING HORMONE Routine 09/18/2021 10:30 Results for this AM [employer] STE[employer] procedure are i n the results section. MAGNESIUM LEVEL Routine 09/18/2021 10:30 Results for this AM [employer] procedure are i n the results section. COMPREHENSIVE METABOLIC Routine 09/18/2021 10:30 PANEL AM [employer]URAL STEEL [employer]ER COMPLETE BLOOD COUNT W/ Routine 09/18/2021 10:30 DIFFERENTIAL AM [employer]URAL STEEL DETAILER PATHOLOGY BIOPSY Routine 08/21/2021 10:17 Neoplasm of Results for this INTERPRETATION AM STRUCTURAL STEEL DETAILER uncertain procedure are in behavior of skin the results section. CT CHEST W CONTRAST Routine 08/20/2021 10:32 Squamous cell Res ults for this AM [employer]URAL STEEL DETAILER carcinoma, NOS of procedure are in lower lobe, lung the results <Left> section. POC CREATININE Routine 08/20/2021 10:03 Results f or this AM [employer]URAL STEEL [employer] procedure are i n the results section. FRACTIONATED BILIRUBIN Routine 08/20/2021 9:23 R esults for this AM [employer]URAL STEEL [employer]ER procedure are i n the results section. TOTAL PROTEIN Routine 08/20/2021 9:23 Results fo r this AM [employer] procedure are i n the results section. ASPARTATE AMINOTRANSFERASE Routine 08/20/2021 9:23 Results for this AM [employer]URAL STEEL [employer] procedure are i n the results section. ALANINE AMINOTRANSFERASE Routine 08/20/2021 9:23 Results for this AM [employer]URAL STEEL [employer]ER procedure are i n the results section. ALKALINE PHOSPHATASE Routine 08/20/2021 9:23 Res ults for this AM [employer]URAL STEEL [employer]ER procedure are i n the results section. ALBUMIN LEVEL Routine 08/20/2021 9:23 Results fo r this AM [employer]URAL STEEL [employer]ER procedure are i n the results section. CALCIUM LEVEL TOTAL Routine 08/20/2021 9:23 Resu lts for this AM [employer]URAL STEEL [employer]ER procedure are i n the results section. .GLOMERULAR FILTRATION RATE Routine 08/20/2021 9:23 Results for this AM [employer]URAL STEEL DETAILER procedure are i n the results section. SERUM CREATININE Routine 08/20/2021 9:23 Results for this AM [employer]URAL STEEL DET[employer]ER procedure are i n the results section. ELECTROLYTE PANEL Routine 08/20/2021 9:23 Result s for this AM [employer]URAL STEEL [employer]ER procedure are i n the results section. BLOOD UREA NITROGEN Routine 08/20/2021 9:23 Resu lts for this AM [employer]URAL STEEL [employer]ER procedure are i n the results section. GLUCOSE LEVEL Routine 08/20/2021 9:23 Results fo r this AM [employer]URAL STEEL DETAILER procedure are i n the results section. MANUAL DIFFERENTIAL Routine 08/20/2021 9:23 Resu lts for this AM [employer]URAL STEEL [employer]ER procedure are i n the results section. Results CBC Routine 08/20/2021 9:23 Results for this AM [employer]URAL STEEL [employer]ER procedure are i n the results section. FREE THYROXINE Routine 08/20/2021 9:23 Results f or this AM [employer]URAL STEEL [employer] procedure are i n the results section. THYROID STIMULATING HORMONE Routine 08/20/2021 9:23 Results for this AM STRU[employer]URAL STEEL DETAILER procedure are i n the results section. MAGNESIUM LEVEL Routine 08/20/2021 9:23 Results for this AM [employer]URAL STEEL DET[employer]ER procedure are i n the results section. COMPREHENSIVE METABOLIC Routine 08/20/2021 9:23 PANEL AM STRUCTURAL STEEL DETAILER COMPLETE BLOOD COUNT W/ Routine 08/20/2021 9:23 DIFFERENTIAL AM STRUCTURAL STEEL DETAILER FRACTIONATED BILIRUBIN Routine 07/24/2021 2:10 Squamous cell [...] section. ALANINE AMINOTRANSFERASE Routine 03/06/2021 6:48 Squamous olag l Results for this AM CDT carcinoma [...] of lower lobe of left lung after 01/26/2021 Results (ABNORMAL) .Serum Creatinine (01/01/2022 9:58 AM CDT)Only the most recent of19 resultswithin the time period is included. Pathologist Sig nature Creatinine 1.47 (H) 0.67 - 1.17 mg/dL [facility] IC CENTER Specimen Blood Performing Organization Address [facility] Phon e Number [facility] DIAGNOSTIC Unless otherwise noted, [address] all lab tests performed by: Division of Pathology and Laboratory Medicine [address] (ABNORMAL) .CBC (01/01/2022 9:58 AM CDT)Only the most recent of14 resultswithin the time period is included. WBC 6.7 4.0 - 11.0 [facility] K/uL DIAGNOSTIC CENTER RBC 4.28 (L) 4.50 - 6.00 [facility] M/uL DIAGNOSTIC CENTER Hgb 10.0 (L) 14.0 - 18.0 [facility] gm/dL DIAGNOSTIC CENTER Hct 33.4 (L) 40.0 - 54.0 % [facility] DIAGNOSTIC [place] MCV 78 (L) 82 - [address] [facility] DIAGNOSTIC [place] MCH 23.4 (L) 27.0 - 31.0 [facility] pg DIAGNOSTIC CENTER MCHC 29.9 (L) 31.0 - 36.0 [facility] gm/dL DIAGNOSTIC CENTER RDW-SD 49.9 (H) 35.1 - 46.3 [facility] DIAGNOSTIC CENTER RDW-CV 18.0 (H) 12.0 - 15.5 % [facility] Platelet count 191 140 - 440 [facility] K/uL DIAGNOSTIC CENTER MPV 8.9 4.0 - 10.4 fL [facility] INRBC 0.0 <=0.0 % [facility] Comment: DIAGNOSTIC CENTER The INRBC (instrument NRBC) value reflects the enumera tion of nucleated red blood cells contained in a 200uL samp le of whole blood analyzed by the instrument. This value may differ from the NRBC value reported in a manual differ ential, which is based on a 100 cell differential. Specimen Blood Performing Organization Address City/[facility] Phon e Number [facility] DIAGNOSTIC Unless otherwise noted, [place] [phone] CENTER all lab tests performed by: Division of Pathology and Laboratory Medicine [address] [facility] ([facility] Glomerular Filtration Rate (01/01/2022 9:58 AM CDT)Only the most recent of19 resultswithin the time period is included. eGFR-AA 50 (L) >=60 [facility] Comment: mL/min/1.73 DIAGNOSTIC CENTER Normal eGFR: >= 60 mL/min/1.73 m2 sq. m Note: The eGFR is calculated using the [...] decreased GFR 15-29 5 Kidney failure <15 eGFR-GOLDIE 43 (L) >=60 [facility] Comment: mL/min/1.73 DIAGNOSTIC CENTER Normal eGFR: >= 60 mL/min/1.73 m2 sq. m Note: The eGFR is calculated using the [...] decreased GFR 15-29 5 Kidney failure <15 Specimen Blood Performing Organization Address City/State/ZIP Code Phon e Number [facility] DIAGNOSTIC Unless otherwise noted, [place], [place] [address] CENTER all lab tests performed by: Division of Pathology and Laboratory Medicine [facility] Fractionated Bilirubin (01/01/2022 9:58 AM CDT)Only the most recent of14 resultswithin the time period is included. Bili Total 1.1 <=1.2 mg/dL [facility] Comment: DIAGNOSTIC CENTER Indocyanine Green (ICG) may cause falsely elevated bilirubin results. Total and direct bilirubin must not be measured from samples containing indocyanine green. False elevation of total robyn irubin can be seen in patients with IgG concentrations above 28 g/L. Bili Direct 0.3Comment: <=0.3 mg/dL [facility] Indocyanine Green DIAGNOSTIC CENTER (ICG) may cause falsely elevated bilirubin results. Total and direct bilirubin must not be measured from samples containing indocyanine green. Bili Indirect 0.8 0.0 - 0.9 [facility] mg/dL DIAGNOSTIC CENTER Specimen Blood Performing Organization Address City/State/ZIP Code Phon e Number [facility] DIAGNOSTIC Unless otherwise noted, [place] [phone] CENTER all lab tests performed by: Division of Pathology and Laboratory Medicine [address] (ABNORMAL) Differential (01/01/2022 9:58 AM CDT)Only the most recent of14 resultswithin the time period is included. Pathologist [facility] Neutrophil % 76.8 (H) 42.0 - 66.0 % [facility] DIAGNOSTIC [place] Lymphocyte % 11.4 (L) 24.0 - 44.0 % [facility] Monocyte % 9.1 (H) 2.0 - 7.0 % [facility] Eosinophil % 1.8 1.0 - 4.0 % [facility] Basophil % 0.3 0.0 - 1.0 % [facility] IGRE % 0.6 (H)Comment: 0.0 - 0.4 % [facility] IGRE % count DIAGNOSTIC CENTER includes Metamyelocytes, Myelocytes, and Promyelocytes. Neutrophil Abs 5.18 1.70 - 7.30 [facility] K/ DIAGNOSTIC CENTER Lymphocyte Abs 0.77 (L) 1.00 - 4.80 [facility] K/ DIAGNOSTIC CENTER Monocyte Abs 0.61 0.08 - 0.70 [facility] K/ DIAGNOSTIC CENTER Eosinophil Abs 0.12 0.04 - 0.40 [facility] K/ DIAGNOSTIC CENTER Basophil Abs 0.02 0.00 - 0.10 [facility] K/uL DIAGNOSTIC CENTER IG Abs 0.04 0.00 - 0.04 [facility] K/uL DIAGNOSTIC CENTER Specimen Blood Performing Organization Address [facility] Phon e Number [facility] DIAGNOSTIC Unless otherwise noted, [place] [phone] [place] all lab tests performed by: Division of Pathology and Laboratory Medicine [address] Uric Acid (01/01/2022 9:58 AM CDT)Only the most recent of3 resultswithin the time period is included. Pathologist Sig nature Uric Acid 5.7 3.4 - 7.0 mg/dL [facility] DIAGNOSTIC CENTER Specimen Blood Performing Organization Address [facility] Phon e Number [facility] DIAGNOSTIC Unless otherwise noted, [address] all lab tests performed by: Division of Pathology and Laboratory Medicine [facility] (ABNORMAL) BUN (01/01/2022 9:58 AM CDT)Only the most recent of19 resultswithin the time period is included. Pathologist Sig nature BUN 36 (H) 6 - 23 mg/dL [facility] DIAGNOSTIC CE NTER Specimen Blood Performing Organization Address [facility] Phon e Number [facility] DIAGNOSTIC Unless otherwise noted, [place] [phone] [place] all lab tests performed by: Division of Pathology and Laboratory Medicine [address] (ABNORMAL) T3 (01/01/2022 9:58 AM CDT) Pathologist Sig nature T3 Total 76 (L) 80 - 200 ng/dL [facility] CANCER [facility] ER Specimen Blood Performing Organization Address [facility] Phon e Number [facility] CANCER Unless otherwise noted, [address] all lab tests performed by: Division of Pathology and Laboratory Medicine [address] ALT (01/01/2022 9:58 AM CDT)Only the most recent of14 resultswithin the time period is included. Pathologist Sig nature ALT 23 <=41 U/L [facility] DIAGNOSTIC CE NTER Specimen Blood Performing Organization Address [facility] Phon e Number [facility] DIAGNOSTIC Unless otherwise noted, [place] [phone] [place] all lab tests performed by: Division of Pathology and Laboratory Medicine [facility] Aspartate Aminotransferase (01/01/2022 9:58 AM CDT)Only the most recent of14 resultswithin the time period is included. Pathologist Sig nature AST 23 <=40 U/L [facility] DIAGNOSTIC CE NTER Specimen Blood Performing Organization Address [facility] Phon e Number [facility] DIAGNOSTIC Unless otherwise noted, [address] all lab tests performed by: Division of Pathology and Laboratory Medicine [address] TSH (01/01/2022 9:58 AM CDT)Only the most recent of13 resultswithin the time period is included. Pathologist Sig nature TSH 3.32 0.27 - 4.20 mcunit/mL [facility] DIAG NOSTIC [place] Specimen Blood Performing Organization Address [facility] Phon e Number [facility] DIAGNOSTIC Unless otherwise noted, [address] all lab tests performed by: Division of Pathology and Laboratory Medicine [address] Free T4 (01/01/2022 9:58 AM CDT)Only the most recent of13 resultswithin the time period is included. Pathologist Sig nature T4 Free 1.29 0.93 - 1.70 ng/dL [facility] Specimen Blood Performing Organization Address [facility] Phon e Number [facility] DIAGNOSTIC Unless otherwise noted, [address] all lab tests performed by: Division of Pathology and Laboratory Medicine [address] (ABNORMAL) Total Protein (01/01/2022 9:58 AM CDT)Only the most recent of14 resultswithin the time period is included. Pathologist Sig nature Total Protein 6.2 (L) 6.4 - 8.3 g/dL [facility] Specimen Blood Performing Organization Address [facility] Phon e Number [facility] DIAGNOSTIC Unless otherwise noted, [address] all lab tests performed by: Division of Pathology and Laboratory Medicine [address] Alkaline Phosphatase (01/01/2022 9:58 AM CDT)Only the most recent of14 results within the time period is included. Pathologist Sig nature Alk Phos 89 40 - 129 U/L [facility] DIAGNOSTIC CE NTER Specimen Blood Performing Organization Address City/[facility] Phon e Number [facility] DIAGNOSTIC Unless otherwise noted, [address] all lab tests performed by: Division of Pathology and Laboratory Medicine [address] Magnesium Level (01/01/2022 9:58 AM CDT)Only the most recent of15 resultswithin the time period is included. Pathologist Sig nature Magnesium 2.1 1.6 - 2.6 mg/dL [facility] DIAGNOSTIC CENTER Specimen Blood Performing Organization Address [facility] Phon e Number [facility] DIAGNOSTIC Unless otherwise noted, [address] all lab tests performed by: Division of Pathology and Laboratory Medicine [address] (ABNORMAL) Glucose Level (01/01/2022 9:58 AM CDT)Only the most recent of19 resultswithin the time period is included. Glucose Level 130 (H) 70 - 99 mg/dL [facility] Comment: DIAGNOSTIC CENTER Effective 04/30/16, the gluco se reference intervals have been updated based on [place] [employer] guidelines (Standards of Medical Care in Diabetes 2016. Diabetes Care 2016; 39: S13-S22). Fasting blood glucose: Normal: 70-99 mg/dL Impaired fasting glucose (in creased risk for diabetes or pre-diabetes): 100- 125 mg/dL Diabetes mellitus: >/=126 mg/dL Random blood glucose: Normal: 70-199 mg/dL Note: Random glucose >100 mg/dL is assoc iated with increased risk for diabetes Specimen Blood Performing Organization Address [facility] Phon e Number [facility] DIAGNOSTIC Unless otherwise noted, [address] all lab tests performed by: Division of Pathology and Laboratory Medicine [address] Calcium Level (01/01/2022 9:58 AM CDT)Only the most recent of19 resultswithin the time period is included. Pathologist Sig nature Calcium Lvl 9.8 8.4 - 10.2 mg/dL [facility] DIAGNOSTI C CENTER Specimen Blood Performing Organization Address [facility] Phon e Number [facility] DIAGNOSTIC Unless otherwise noted, [address] all lab tests performed by: Division of Pathology and Laboratory Medicine [address] Albumin Level (01/01/2022 9:58 AM CDT)Only the most recent of14 resultswithin the time period is included. Pathologist Sig nature Albumin Lvl 3.6 3.5 - 5.2 gm/dL [facility] Specimen Blood Performing Organization Address City/[facility]/ZIP Code Phon e Number [facility] DIAGNOSTIC Unless otherwise noted, [address] all lab tests performed by: Division of Pathology and Laboratory Medicine [address] [facility] (ABNORMAL) Electrolyte Panel (01/01/2022 9:58 AM CDT)Only the most recent of19 resultswithin the time period is included. Pathologist Sig nature Sodium Lvl 132 (L) 136 - 145 mEq/L [facility] Potassium Lvl 4.2 3.5 - 5.1 mEq/L [facility] C [place] Chloride 97 (L) 98 - 107 mEq/L [facility] CO2 27 22 - 29 mEq/L [facility] Anion Gap 8 4 - 14 mEq/L [facility] Specimen Blood Performing Organization Address City/[facility] e Number [facility] DIAGNOSTIC Unless otherwise noted, [address] all lab tests performed by: Division of Pathology and Laboratory Medicine [address] [place] [address] Echocardiogram 2D Complete (12/23/2021 3:33 PM CDT) Specimen Narrative ISCV - 12/23/2021 4:54 PM CDT Echocardiographic Report [...] 3.1 E/e' (sept): 4.5 66 Procedure Note Joel King MD - 12/23/2021 Echocardiographic Report Interpretation [...] imaginD volumes were not performed in this [facility]. Cardiac Mechanics/Speckle Tracking Imagi ng: Normal [...] E/e' (lat): 3.1 E/e' (sept): 4.5 66 Performing Organization Address City/[facility] Phon e Number ISCV X-ray Chest 2 Views (12/23/2021 1:06 PM CDT) Anatomical Region Laterality Modality Chest Digital Radiography Specimen Impressions [id number] - 12/23/2021 1:09 PM CDT Small loculated left pleural effusion. Narrative [id number] - 12/23/2021 1:09 PM CDT FULL RESULT: [...] loculated left pleural effusion. Performing Organization Address [facility] Phon e Number [id number] (ABNORMAL) Prothrombin Time (12/23/2021 1:05 PM CDT) Pathologist Sig nature PT 15.6 (H) 11.5 - 13.9 [facility](s) CENTER INR 1.33 (H) 0.90 - 1.10 [facility] Specimen Blood Narrative [facility] - 1:57 PM CDT This lab cannot be scheduled at the [facility] locations due to collection/proccessing restrictions: [facility] and [facility]. Performing Organization Address [facility] Phon e Number [facility] CANCER Unless otherwise noted, [address] all lab tests performed by: Division of Pathology and Laboratory Medicine [address] PETCT Subsequent Treatment Strategy (12/09/2021 11:36 AM STR[employer]EL [employer]AILER)Only the most recent of2 resultswithin the time period is included. Anatomical Region Laterality Modality Whole Body Positron Emission To mography (PET) Specimen Impressions [id number] - 12/09/2021 12:43 PM [employer] Increase in size and FDG avidity of the tumor recurrence in the left lung adjacent to the sutures. New small to moderate right pleural effusion. New FDG avid focus in the free wall of the left ventricle of uncertain etiology. Increase in size of the solid right renal lesion suspicious for renal neoplasm. Narrative [id number] - 12/09/2021 12:43 PM STRUCTURAL STEEL DETAILER FULL RESULT: Examination: FDG PET/CT, 12/09/2021 11:36 [...] suspicious for renal neoplasm. Performing Organization Address City/State/ZIP Code Phon e Number [id number] General Laboratory Add-On Test (11/13/2021 3:45 PM STRUCTURAL STEEL DETAILER)Only the most recent of3 resultswithin the time period is included. Pathologist Sig nature Ordered Test Added [facility] Test Needed Free T4, TSH [facility] Specimen Existing Performing Organization Address City/State/ZIP Code Phon e Number [facility] CANCER Unless otherwise noted, [place] [address] [place] all lab tests performed by: Division of Pathology and Laboratory Medicine [address] Chest with Contrast (10/15/2021 9:56 AM STRUCTURAL STEEL DETAILER)Only the most recent of2 results within the time period is included. Anatomical Region Laterality Modality Chest Computed Tomography Specimen Impressions [id number] - 10/15/2021 11:13 AM STRUCTURAL STEEL DETAILER * Stable pulmonary nodule at the resection [...] and agree with the final report. Narrative [id number] - 10/15/2021 11:13 AM STRUCTURAL STEEL DETAILER FULL RESULT: Examination: CT CHEST W CONTRAST, 022 9:56 AM Clinical History: Squamous cell carcinom [...] FULL RESULT: Examination: CT CHEST W CONTRAST, 022 9:56 AM Clinical History: Squamous cell carcinom [...] Organization Address City/State/ZIP Code Phon e Number [id number] (ABNORMAL) POC Creatinine (10/15/2021 9:21 AM STRUCTURAL STEEL DETAILER)Only the most recent of2 resultswithin the time [...] Clean Dev Yes POC [facility], [address], [place] [address]; Collar Trimmer: Brandi Nguyen MD Specimen Blood Performing Organization Address City/State/ZIP Code Phon e Number POC TELCOR Pathology Biopsy Interpretation (09/30/2021 8:31 AM STRUCTURAL STEEL DETAILER)Only the most recent of 3 resultswithin the time period is included. 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 Comment A & B: Multiple [facility] additional deeper tissue sections have been cut and examined. Gross Description A: [facility] Skin, right chest: A juarez, rick [...] (2 pieces), remainder Disclaimer "Some tests reported [facility] here may have been developed and performance characteristics determined by [facility] Pathology and Laboratory Medicine. These tests have not been specifically cleared or approved by the U.S. Food and Drug Administration. If applicable, controls were reviewed and showed appropriate reactivity." Specimen Tissue - Skin Tissue - Skin Performing Organization Address City/State/ZIP Code Phon e Number [facility] [place] [address] [address] 4. 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 Excision of a nodular basal cell ca rcinoma located on the central back Date/Time: 09/30/2021 8:30 AM Consent obtained: yes Pryor Protocol (Time-out) performed: yes Provider Information Authorized by: Claudia Stein MD Performed by: Claudia Stein MD Supervising Physician: Claudia Stein MD Additional Surgeon: Odette Moore MD Manpower Development Manager present?: yes Manpower Development Manager: Nikolas Pyle MD Patient Diagnosis Clinical preoperative [...] 5 mL Preoperative Medications Preoperative Medications: See [facility] for details Surgical Prep Surgical prep: Chlorhexidine Procedure Details: Excision Excision technique: Elliptical/fusifor m After informed consent was obtained, the patient was positioned to achieve maximum access to the operative site. A wide margin surrounding the lesion was prepped and draped in the nor mal fashion. The Pryor Protocol was completed. An elliptical incision was [...] to home Discharge Medications Discharge Medications: See [facility] for det ails Comments The patient's clinical history was revie wed in detail. On the basis of available clinical data, the procedure i s in accordance with commonly accepted standards of clinical practice and does not deplete hospital capacity needed to cope with COVID-19. 3. Excision of a nodular basal cell carcinoma located on the right chest (09/30/2021 8:29 AM STRUCTURAL STEEL DETAILER) Claudia Hernández MD - 09/30/2021 8:29 AM STRUCTURAL STEEL DETAILER Claudia Stein MD 10/08/2021 7:39 PM 3. Excision of a nodular basal cell ca rcinoma located on the right chest Date/Time: 09/30/2021 8:29 AM Consent obtained: yes Pryor Protocol (Time-out) performed: yes Provider Information Authorized by: Claudia Stein MD Performed by: Claudia Stein MD Supervising Physician: Claudia Stein MD Additional Surgeon: Odette Moore MD Manpower Development Manager present?: yes Manpower Development Manager: Nikolas Pyle MD Patient Diagnosis Clinical preoperative [...] 6 mL Preoperative Medications Preoperative Medications: See MAR for details Surgical Prep Surgical prep: Chlorhexidine Procedure Details: Excision Excision technique: Elliptical/fusifor m After informed consent was obtained, the patient was positioned to achieve maximum access to the operative site. A wide margin surrounding the lesion was prepped and draped in the nor mal fashion. The Pryor Protocol was completed. An elliptical incision was [...] to home Discharge Medications Discharge Medications: See MAR for det ails Comments The patient's clinical history was revie wed in detail. On the basis of available clinical data, the procedure i s in accordance with commonly accepted standards of clinical practice and does not deplete hospital capacity needed to cope with COVID-19. 2. 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 Mohs-assisted excision of a squamou s cell carcinoma located on the left forehead Date/Time: 09/30/2021 8:29 AM Surgeon Authorized by: Claudia Stein MD Performed by: Claudia Stein MD Supervising Surgeon: Claudia Stein MD Additional Surgeon: Odette Moore MD Manpower Development Manager: Nikolas Pyle MD Location Location: Left forehead [...] fashion. Local anesthesia was administer ed. The Pryor Protocol was completed. The discernible tumor was e xcised as a horizontal layer with the Mohs technique. Hemostasis was obtai ludy and patient was bandaged. The tissue was precisely mapped, marked, monse ssly sectioned and submitted for fresh-frozen, horizontal processing. Hem atoxylin and eosin-stained histologic sections were evaluated by marky surgeon. This process was repeated until the end of the procedure. Tumor Histology Significant histologic findings were pre sent in stages 1 through 1. 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 Case: [id number] Stage 1: Tumor was present Number of sections positive: 1 Total number of sections: 1 Stage 2: No tumor was present at the margin of e sections evaluated Total number of sections: 1 Procedure Details: Repair Primary repair After the risks, benefits, and alternati ves to primary and secondary intention healing were discussed with marky patient, the patient elected to undergo a [...] the left temporal scalp (09/30/2021 8:29 AM STRUCTURAL STEEL DETAILER) Claudia Hernández MD - 09/30/2021 8:29 AM STRUCTURAL STEEL DETAILER Claudia Stein MD 10/08/2021 7:39 PM 1. Mohs-assisted excision of a squamou s cell carcinoma located on the left temporal scalp Date/Time: 09/30/2021 8:29 AM Surgeon Authorized by: Claudia Stein MD Performed by: Claudia Stein MD Supervising Surgeon: Claudia Stein MD Additional Surgeon: Odette Moore MD Manpower Development Manager: Nikolas Pyle MD Location Location: Left temporal [...] fashion. Local anesthesia was administer ed. The Pryor Protocol was completed. The discernible tumor was [...] stages 1 through 1 (Normal skin). Case: [id number] Stage 1: No tumor was present at [...] COVID-19. MD [facility] [address], [address] [place] [address] CT Chest Abdomen with Contrast (06/25/2021 11:10 AM CDT)Only the most recent of2 resultswithin the time period is included. Anatomical Region Laterality Modality Chest, Abdomen Computed Tomography Specimen Impressions [id number] - 06/26/2021 9:33 AM CDT * Stable recurrent tumor at the resection site in the left lower lobe. No new or progressive disease. Narrative [id number] - 06/26/2021 9:33 AM CDT FULL RESULT: [...] new or progressive disease. Performing Organization Address City/State/ZIP Code Phon e Number [id number] Phosphorus (04/23/2021 9:04 AM CDT)Only the most recent of6 resultswithin the time period is included. Pathologist Sig nature Phosphorus 2.9Comment: Testing 2.5 - 4.5 mg/dL VALPARAISO performed at .[facility], [address], [place] [address] Specimen Blood Narrative VALPARAISO - 04/23/2021 10:09 AM CDT Within 72 hours prior to each dose. Performing Organization Address City/State/ZIP [facility] [place] [address] [place] [address] 2. 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 Mohs-assisted excision of a basal c ell carcinoma located on the left cheek posterior Date/Time: 03/20/2021 10:47 AM Surgeon Authorized by: Claudai Stein MD Performed by: Zurdo Walker MD [...] (ml): 2 Preoperative/Intraoperative Medications Preop/Intraop medications: See [facility] for details Surgical Prep Surgical prep: Chlorhexidine [...] fashion. Local anesthesia was administer ed. The Pryor Protocol was completed. The discernible tumor was e xcised as a horizontal layer with the Mohs technique. Hemostasis was obtai ludy and patient was bandaged. The tissue was precisely mapped, marked, monse ssly sectioned and submitted for fresh-frozen, horizontal processing. Hem atoxylin and eosin-stained histologic sections were evaluated by e surgeon. This process was repeated until the end of the procedure. Tumor Histology Significant histologic findings were pre sent in stages 1 through 1. 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 Case: [id number] Stage 1: Tumor was present Number of [...] cope with COVID-19. [facility] [address] [place] [address], [address] [place] [address] 1. Mohs-assisted excision of a bassal cell [...] (ml): 2 Preoperative/Intraoperative Medications Preop/Intraop medications: See [facility] for details Surgical Prep Surgical prep: Chlorhexidine [...] fashion. Local anesthesia was administer ed. The Pryor Protocol was completed. The discernible tumor was e xcised as a horizontal layer with the Mohs technique. Hemostasis was obtai ludy and patient was bandaged. The tissue was precisely mapped, marked, monse ssly sectioned and submitted for fresh-frozen, horizontal processing. Hem atoxylin and eosin-stained histologic sections were evaluated by [facility] surgeon. This process was repeated until the end of the procedure. Tumor Histology Significant histologic findings were pre sent in stages 1 through 1. 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 Case: [id number] Stage 1: Tumor was present Number of sections positive: 1 Total number of sections: 1 Stage 2: No tumor was present at the margin of [facility] sections evaluated Total number of sections: 1 Procedure Details: Repair Primary repair After the risks, benefits, and alternati ves to primary and secondary intention healing were discussed with [facility] patient, the patient elected to [...] with COVID-19. [facility] [address] [place] [address] (ABNORMAL) POC Glucose Screen (03/06/2021 7:22 AM CDT) Pathologist [facility] POC Glucose 104 (H) 70 - 99 [...] Sample Type Venous POC TELCOR [facility]forming [facility]: [facility], [address] [place] [address]; Collar Trimmer: Brandi Nguyen MD Specimen Blood Performing Organization Address City/State/ZIP Code Phon e Number POC TELCOR US Leg Venous Doppler Right (03/02/2021 5:15 PM CDT) Anatomical Region Laterality Modality Leg, Extremity Ultrasound Specimen Impressions [id number] - 03/02/2021 8:35 PM CDT Negative for deep venous thrombosis in t he right lower extremity. I personally reviewed these image(s) joan maria a with the resident's/fellow's interpretations, certify that if a procedure was performed I was physically present, and agree with the final report. Narrative [id number] - 03/02/2021 8:35 PM CDT FULL RESULT: [...] Organization Address City/State/ZIP Code Phon e Number [id number] ACTH (03/02/2021 5:43 AM CDT) Pathologist Sig nature ACTH 48 7 - 63 pg/mL [facility] Comment: [facility] Results greater than 1826 pg /mL may not be reliable due to matrix effect with extended dilution as it exceeds the collar packer's recommended limit. ACTH reference intervals are established for the morni ng hours from 7-10 am. Due to the circadian rhythm of ACTH levels in plasma, e sample collection time must be noted. Caution should be exercised when interpreting such values and done in conjunction with clinical context. Specimen Blood Performing Organization Address [facility] Phon e Number [facility] CANCER Unless otherwise noted, [address] all lab tests performed by: Division of Pathology and Laboratory Medicine [facility] [address] [place] Prolactin (03/02/2021 5:43 AM CDT) Pathologist [facility] Prolactin 10.1Comment: Results 4.0 - 15.2 [facility] greater than 4700.0 ng/mL [facility] ng/mL may not be reliable due to matrix effect with extended dilution as it exceeds the collar packer s recommended limit. Caution should be exercised when interpreting such values and done in conjunction with clinical context. Specimen Blood Performing Organization Address [facility] Phon e Number [facility] CANCER Unless otherwise noted, [address] all lab tests performed by: Division of Pathology and Laboratory Medicine [facility] [place] [place] (ABNORMAL) LH (03/02/2021 5:43 AM CDT) Pathologist [facility] LH 10.0 (H) 1.7 - 8.6 [facility] Comment: mIU/mL [facility] Female Luteinizing Hormone Reference Ranges: LOW H IGH Follicular 2.4 12.6 Ovulation 14.0 95.6 Luteal 1.0 11.4 Postmenopause 7.7 58.5 Specimen Blood Performing Organization Address [facility] Phon e Number [facility] Unless otherwise noted, [address] all lab tests performed by: Division of Pathology and Laboratory Medicine [facility] Zoraida Troy FSH Level (03/02/2021 5:43 AM CDT) Pathologist [facility] FSH 9.4 1.5 - 12.4 [facility] Comment: mIU/[facility] Female Follicle Stimulating Hormone Reference Ranges: LOW HI GH Follicular 3.5 12.5 Ovulation 4.7 21.5 Luteal 1.7 7.7 Postmenopause 25.8 134.8 Specimen Blood Performing Organization Address City/[facility]/ZIP Code Phon e Number [facility] CANCER Unless otherwise noted, [address] all lab tests performed by: Division of Pathology and Laboratory Medicine [address] Urinalysis with Microscopic (03/02/2021 5:12 AM CDT) Pathologist Sig nature UA WBC <1 0 - 2 /HPF [facility] UA RBC <1 0 - 2 /HPF [facility] UA Mucous NOT SEEN Not Seen-Trace /HPF [facility] UA Bacteria NOT SEEN NOT SEEN /HPF [facility] UA Squam Epi NOT SEEN None-Occasional [facility] Specimen Urine Narrative [facility] - 5:53 AM CDT Some reporting parameters within the Urinalysis test have changed due to the implementation of new in strumentation in the [facility], allowi ng greater sensitivity of measurement. Urinalysis results reported by the [facility] using existing instrumentation, as well as Urinalysis t esting performed manually or by backup methodology at the [facility] will remain relatively unchanged. New reporting parameters and units will now be reported for all campuses. Performing Organization Address City/[facility] Code Phon e Number [facility] Unless otherwise noted, [address] all lab tests performed by: Division of Pathology and Laboratory Medicine [address] Sodium Urine (03/02/2021 5:12 AM CDT)Only the most recent of2 resultswithin the time period is included. Pathologist Sig nature U Sodium 35Comment: Normal range mEq/L [facility] not available for CANCER CENTER collections less than 24 hours in duration. Specimen Urine Performing Organization Address City/[facility]/ZIP [facility] Phon e Number [facility] Unless otherwise noted, [address] all lab tests performed by: Division of Pathology and Laboratory Medicine [address] Potassium Urine (03/02/2021 5:12 AM CDT) Pathologist Sig nature U Potassium 9Comment: Normal range mEq/L [facility] not available for CANCER CENTER collections less than 24 hours in duration. Specimen Urine Performing Organization Address City/State/ZIP Code Phon e Number [facility] CANCER Unless otherwise noted, [address] all lab tests performed by: Division of Pathology and Laboratory Medicine [address] Osmolality Urine (03/02/2021 5:12 AM CDT)Only the most recent of2 resultswithin the time period is included. U Osmolality 178 50 - 1,400 [facility] Comment: mOsm/kg H2O [facility] Urinary osmolality may vary widely, depending on the state of hydration. Random urine osmolality can range from 50 to 1400 mOsm/kg H2O depending on fluid intake. In individuals on average fluid intake, urine osmolality is typically 300-900 mOsm/kg H2O. Units of measure: mOsm per Kg of water. Specimen Urine Performing Organization Address City/[facility]/ZIP Code Phon e Number [facility] CANCER Unless otherwise noted, [address] all lab tests performed by: Division of Pathology and Laboratory Medicine [address] Chloride Urine (03/02/2021 5:12 AM CDT) Pathologist Sig nature U Chloride 24Comment: Normal mEq/L [facility] range not available [facility] for collections less than 24 hours in duration. Specimen Urine Performing Organization Address City/[facility]/ZIP Code Phon e Number [facility] CANCER Unless otherwise noted, [address] all lab tests performed by: Division of Pathology and Laboratory Medicine [address] Urinalysis w/Microscopic if Indicated (03/02/2021 5:12 AM CDT)Only the most recent of2 resultswithin the time period is included. Pathologist Sig nature UA Color Yellow Straw-Yellow [facility] UA Appear Clear Clear [facility] UA Glucose NEG NEG mg/dL [facility] UA Bili NEG NEG [facility] UA Ketones NEG NEG mg/dL [facility] UA Spec Grav 1.005 1.003 - 1.035 [facility] UA Blood NEG NEG [facility] UA pH 7.0 5.0 - 9.0 [facility] UA Protein NEG NEG mg/dL [facility] UA Urobilinogen NEG NEG [facility] UA Nitrite NEG NEG [facility] UA Leuk Est NEG NEG [facility] Specimen Urine Performing Organization Address City/[facility]/ZIP Code Phon e Number [facility] CANCER Unless otherwise noted, [address] all lab tests performed by: Division of Pathology and Laboratory Medicine [address] (ABNORMAL) Osmolality (03/01/2021 9:24 PM CDT)Only the most recent of2 results within the time period is included. Pathologist Sig nature Osmolality 258 (L)Comment: 275 - 300 [facility] Units in mOsm mOsm/kg H2O [facility] per kg of water. Specimen Blood Performing Organization Address City/[facility]/ZIP Code Phon e Number [facility] CANCER Unless otherwise noted, [address] all lab tests performed by: Division of Pathology and Laboratory Medicine [address] Urine Culture (03/01/2021 6:19 PM CDT) Pathologist Edilberto Final Report No growth [facility] Path Review - The results have been review ed and electronically signed by Pathologist: [facility] Urine CHRISTIAN BERUMEN MD #[id number] [facility] R Specimen Urine Performing Organization Address City/[facility]/ZIP Code Phon e Number [facility] CANCER Unless otherwise noted, [address] all lab tests performed by: Division of Pathology and Laboratory Medicine [address] Influenza A/B + COVID-19 Asymptomatic- L (03/01/2021 4:28 PM CDT) COVID19 Not Detect[address] Not Detected [facility] (SARS-CoV-2) [facility] Influenza A Not Detected Not Detected [facility] Influenza B Not Detected Not Detected [facility] COVID[address] [facility] Indication [facility] Inf AB+Cov19 See Note [facility] Comment Comment: [facility] The odalis SARS-CoV-2 & Influ adrianne A/B nucleic acid test for use on the odalsi Leydi System is a multiplex real-time RT-PCR [...] fact sheet for patients provided by the collar packer ([employer]) can be reviewed at: https://www.[employer].gov/media/046530/download A fact sheet for Health Care providers is provided by the collar packer ([employer]) and can be reviewed at: https://www.fda.gov/media/285144/download Influenza A and Influenza B negative results [...] and high-complexity tests. The [facility], CLIA Accreditation # [id number] and CAP Accreditation #[id number], verified the performance characteristics of this assay. Internal controls are used to monitor all stages of the test process. Specimen Nasopharyngeal Swab Performing Organization Address City/State/ZIP Code Phon e Number [facility] Unless otherwise noted, [address] all lab tests performed by: Division of Pathology and Laboratory Medicine [address] Lipase (03/01/2021 4:28 PM CDT) Pathologist Sig nature Lipase Lvl 22 13 - 60 U/L [facility] Specimen Blood Performing Organization Address City/[facility] Phon e Number [facility] CANCER Unless otherwise noted, [address] all lab tests performed by: Division of Pathology and Laboratory Medicine [address] LDH (03/01/2021 4:28 PM CDT)Only the most recent of2 resultswithin the time period is included. LDH 195Comment: Results 135 - 225 U/L [facility] greater than 1651 U/L [facility] may not be reliable due to matrix effect with extended dilution as it exceeds the collar packer s recommended limit. Caution should be exercised when interpreting such values and done in conjunction with clinical context. Specimen Blood Performing Organization Address City/State/ZIP Code Phon e Number [facility] CANCER Unless otherwise noted, [address] all lab tests performed by: Division of Pathology and Laboratory Medicine [facility] [employer] Amayad Amylase (03/01/2021 4:28 PM CDT) Pathologist Sig nature Amylase Lvl 65 28 - 100 U/L [facility] Specimen Blood Performing Organization Address City/State/ZIP Code Phon e Number [facility] CANCER Unless otherwise noted, [address] all lab tests performed by: Division of Pathology and Laboratory Medicine [address] [place], [place] [id number] Nair after 01/26/2021 Insurance Payer Benefit Plan / Subscriber ID Effective Phone Address T ype Group Dates [facility] MEDICARE [id number] 2017-Prese [address] [address] Medicare [employer]ALTH[employer] ADVANTAGE [place] [employer] [id number] Advance Directives Code Status Date Activated Date Inactivated Comments Full Code 03/01/2021 8:56 PM 03/03/2021 4:01 PM Full Code 12/15/2019 10:10 AM 12/17/2019 3:34 PM Care Teams Starch [employer]er Relationship Specialty Start Date End Date Leonard Giraldo MD PCP - General 12/05/[address] [place] [id number] Torey Martins MD PCP - External Referring 06/01/15 [address] [place] [address] Torey Martins MD PCP - External Follow Up A 06/01/15 [place] [id number] Claudia Stein MD PCP - External Follow Up C Dermatology 03/20/[address] [place] [address] [id number] Leonard Giraldo MD Physician 12/12/[address] [place] [address] [phone]
--- OUTSIDE RECORDS SUMMARY | 2022-01-26 08:52 | XMS REPORT | Continuity of Care Document ---
:1935 Author Organization [facility] t Address [address] [place] [address] Care Team Providers Name Role Phone [phone] Primary Care Physician Unavailable SYSTEM, NOT IN Attending Clinician Unavailable Jay REICH V. Attending Clinician Tanna THOMPSON Attending Clinician Unavailable VIDHI Attending Clinician Unavailable Vidhi ANP Attending Clinician Hans PharmD Attending Clinician Luis GLASS HANDLER, G Attending Clinician Cami REICH Attending Clinician CAMI Attending Clinician Unavailable Maxwell SINCLAIR Attending Clinician MAXWELL Attending Clinician Unavailable Maicol REICH Attending Clinician Thomas POWELL, M Attending Clinician Poonam REICH Attending Clinician Ken REICH Attending Clinician KEN Attending Clinician Unavailable Sweta TIM Attending Clinician Unavailable Violette Borja MD Attending Clinician Unavailable Malia REICH Attending Clinician Elza REICH Attending Clinician MALIA Attending Clinician Unavailable Nishant PharmD Attending Clinician Nicolette Paris PharmD Attending Clinician Cedric RN Attending Clinician Unavailable Emma REICH Attending Clinician Tito RN, A Attending Clinician Unavailable Garret REICH, C Attending Clinician Micky REICH, B Attending Clinician Jacob REICH Attending Clinician Enio REICH Attending Clinician Ralph TIM, C Attending Clinician Unavailable Payers Payer Name Policy Type Policy Effective Date Expiration Date Sour ce Number [facility] [id number] 2017 MD Coy rson MEDICARE 00:00:00 [facility] MEDICARE [id number] 2017-Present[address] [address], [place] [address]Medicare Problems Condition Condition Condition Status [...] one puff daily. 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 Patient currently on nivolumab .Recent PET-CT dated suggest enlargeme nt of the left lung lesion. 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 00:00: t & Plan: [...] Cancer MD Sophia rocha Granddaughter -Other cancer Scar son Social History Social Habit Start Date Stop Date Quantity Comments Source History of tobacco Cigarette Smoker MD Moreno use History [facility] MD Moreno Alcohol Frequency History [facility] MD Moreno Alcohol Std Drinks History [facility] MD Moreno Alcohol Binge Exposure to Not sure MD Moreno SARS-CoV-2 (event) Alcohol intake 2021-09-30 2021-09-30 Current drinker of MD Moreno 00:00:00 00:00:00 alcohol (finding) Tobacco use and 2016-06-16 2016-06-16 Former smokeless MD Moreno exposure 00:00:00 00:00:00 tobacco user History SDOH 2016-06-16 2016-06-16 Social MD Moerno Alcohol Comment 00:00:00 00:00:00 Tobacco Comment 2016-06-16 2016-06-16 quit at age 51 MD Sophia rocha 00:00:00 00:00:00 Sex [birth year] At [birth year] MD Luciano on 00:00:00 00:00:00 Smoking Status Start Date Stop Date Source Ex-smoker 2016-06-16 00:00:00 2016-06-16 00:00:00 MD Abbott son Medications Ordered Filled Start Stop Current Ordering Indication Dosage Frequency Signature Comments Components Source Medication Medication Date Date Medication? Clinician (SIG) Name Name cholecalcif Yes 1{tbl} Take 1 MD binh, 3-30 tablet by Anderso vitamin D3, 23:20: mouth n (VITAMIN D3 28 daily. ORAL) atorvastati Yes 40mg Take 40 mg MD n (LIPITOR) 3-30 by mouth Zbigniew rso 40 mg 10:52: at n tablet 27 bedtime. apixaban Yes 2.5mg Take 2.5 MD (ELIQUIS) 3-30 mg by Anderso 2.5 mg 10:52: mouth n tablet 27 twice daily. finasteride Yes 5mg Take 5 mg M D (PROSCAR) 5 3-30 by mouth Zbigniew rso mg tablet 10:52: daily. n 27 fluticasone Yes 2{spray Inhale 2 MD propionate 3-30 } sprays Anderso (FLONASE) 10:52: into each n 50 27 nostril mcg/spray daily. nasal spray losartan-hy Yes hypertensio 1{tbl} Take 1 MD drochloroth 3-30 n tablet by And erso iazide 10:52: mouth n (HYZAAR) 27 daily. 100-25 mg per tablet benzonatate Yes [...] of scalp affected area(s) twice daily. cephalexin 2020-10 No Squamous 500mg Take 1 MD (KEFLEX) [...] 1{tbl} Take 1 M D drochloroth 7-21 05-30 tablet by Sophia montilla 21:10: 00:00 mouth n (HYZAAR) 55 :00 daily. 100-25 mg per tablet azithromyci 2020- No TAKE [...] every morning. ALPRAZolam Yes 1{tbl} Take 1 (XANAX) 1 1-12 tablet by Scar so [...] Completed MD And erson Booster Vaccination 00:00:00 (50 mcg/0.25 mL) Moderna SARS-CoV-2 2021-06-20 Completed MD And erson [...] Observation Value Comments Source Systolic blood pressure 2022-01-07 16:04:00 144 mm[Hg] MD Moreno Diastolic blood 2022-01-07 16:04:00 66 mm[Hg] MD Sophia mirelesson pressure Heart rate 2022-01-07 16:04:00 55 /min RN notified MD Abbott son Body temperature 2022-01-07 16:04:00 36.61 Shobha MD Ralph ott Respiratory rate 2022-01-07 16:04:00 18 /min MD Ralph ott Body weight 2022-01-07 16:04:00 90.3 kg MD Scar savage BMI 2022-01-07 16:04:00 26.96 kg/m2 MD Scar savage Oxygen saturation in 2022-01-07 16:04:00 95 /min MD Moreno Arterial blood by Pulse oximetry Body height 2021-03-06 12:07:00 183 cm MD Scar savage Procedures Procedure Date / Time Performed Performing Clinician [facility] e COMPLETE BLOOD COUNT W/ 2022-01-01 14:58:00 Nicolette Morataya MD DIFFERENTIAL COMPREHENSIVE METABOLIC PANEL 2022-01-01 14:58:00 Cass Morataya MD FREE THYROXINE 2022-01-01 14:58:00 Nicolette Morataya MD Andjaquelin sol MAGNESIUM LEVEL 2022-01-01 14:58:00 Nicolette Morataya MD Andjaquelin sol TOTAL T3 2022-01-01 14:58:00 Nicolette Morataya MD Andjaquelin sol THYROID STIMULATING HORMONE 2022-01-01 14:58:00 Thu Morataya MD URIC ACID 2022-01-01 14:58:00 Nicolette Morataya MD Andjaquelin sol Results CBC 2022-01-01 14:58:00 Nicolette Morataya MD Andjaquelin sol MANUAL DIFFERENTIAL 2022-01-01 14:58:00 Nicolette Morataya MD And erson GLUCOSE LEVEL 2022-01-01 14:58:00 Nicolette Morataya MD Andgriso ebenezer BLOOD UREA NITROGEN 2022-01-01 14:58:00 Nicolette Morataya MD And erson ELECTROLYTE PANEL 2022-01-01 14:58:00 Nicolette Morataya MD SERUM CREATININE 2022-01-01 14:58:00 Nicolette Morataya MD Mustapha on .GLOMERULAR FILTRATION RATE 2022-01-01 14:58:00 Thu Morataya MD CALCIUM LEVEL TOTAL 2022-01-01 14:58:00 Nicolette Morataya MD And erson ALBUMIN LEVEL 2022-01-01 14:58:00 Nicolette Morataya MD Andgriso ebenezer ALKALINE PHOSPHATASE 2022-01-01 14:58:00 Nicolette Morataya MD ALANINE AMINOTRANSFERASE 2022-01-01 14:58:00 Nicolette Morataya ASPARTATE AMINOTRANSFERASE 2022-01-01 14:58:00 Nicolette Morataya MD TOTAL PROTEIN 2022-01-01 14:58:00 Nicolette Morataya MD FRACTIONATED BILIRUBIN 2022-01-01 14:58:00 Nicolette Morataya MD ECHOCARDIOGRAM 2D COMPLETE 2021-12-23 20:33:47 Nicolette Morataya MD XR CHEST 2 VW 2021-12-23 18:06:47 Lauren Pleitez MD PROTHROMBIN TIME 2021-12-23 18:05:00 Lauren Pleitez MD PETCT SUBSEQUENT TREATMENT 2021-12-09 17:36:49 Kaitlin Thompson [...] Morataya MD MAGNESIUM LEVEL 2021-11-13 14:54:00 Nicolette oMrataya MD Andgriso n GLUCOSE LEVEL 2021-11-13 14:54:00 Nicolette Morataya MD Andgriso n BLOOD UREA NITROGEN 2021-11-13 14:54:00 Nicolette Morataya MD And erson ELECTROLYTE PANEL 2021-11-13 14:54:00 Nicolette Morataya MD Scar son SERUM CREATININE 2021-11-13 14:54:00 Nicolette Morataya MD Mustapha on .GLOMERULAR FILTRATION RATE 2021-11-13 14:54:00 Thu Morataya MD CALCIUM LEVEL TOTAL 2021-11-13 14:54:00 Nicolette Morataya MD And erson ALBUMIN LEVEL 2021-11-13 14:54:00 Nicolette Morataya MD Andgriso n ALKALINE PHOSPHATASE 2021-11-13 14:54:00 Nicloette Morataya MD ALANINE AMINOTRANSFERASE 2021-11-13 14:54:00 Nicolette Morataya ASPARTATE AMINOTRANSFERASE 2021-11-13 14:54:00 Nicolette Morataya MD TOTAL PROTEIN 2021-11-13 14:54:00 Nicolette Morataya MD Andgriso n FRACTIONATED BILIRUBIN 2021-11-13 14:54:00 Nicolette Morataya MD Results CBC 2021-11-13 14:54:00 Nicolette Morataya MD Andjaquelin n MANUAL DIFFERENTIAL 2021-11-13 14:54:00 Nicolette Morataya MD And erson FREE THYROXINE 2021-11-13 14:54:00 Nicolette Morataya MD n THYROID STIMULATING HORMONE 2021-11-13 14:54:00 Thu Morataya MD COMPLETE BLOOD COUNT W/ 2021-10-15 16:56:00 Fossella, Kaitlin Moreno DIFFERENTIAL COMPREHENSIVE METABOLIC PANEL 2021-10-15 16:56:00 Errolella, Nacho Moreno MAGNESIUM LEVEL 2021-10-15 16:56:00 Fossella, Kaitlin Luciano on THYROID STIMULATING HORMONE 2021-10-15 16:56:00 Kaitlin Thompson MD FREE THYROXINE 2021-10-15 16:56:00 Fossella, Kaitlin Luciano on Results CBC 2021-10-15 16:56:00 FossellaKaitlin MD on MANUAL DIFFERENTIAL 2021-10-15 16:56:00 Kaitlin Thompson MD GLUCOSE LEVEL 2021-10-15 16:56:00 Fossella, Kaitlin Luciano on BLOOD UREA NITROGEN 2021-10-15 16:56:00 Kaitlin Thompson MD ELECTROLYTE PANEL 2021-10-15 16:56:00 ErrolellaKaitlin MD Zbigniew rson SERUM CREATININE 2021-10-15 16:56:00 ErrolellaKaitlin MD Scar son .GLOMERULAR FILTRATION RATE 2021-10-15 16:56:00 Kaitlin Thompson MD CALCIUM LEVEL TOTAL 2021-10-15 16:56:00 Kaitlin Thompson MD ALBUMIN LEVEL 2021-10-15 16:56:00 ErrolellaKaitlin MD on ALKALINE PHOSPHATASE 2021-10-15 16:56:00 Errolella, Kaitlin ott ALANINE AMINOTRANSFERASE 2021-10-15 16:56:00 FossellaKaitlin MD ASPARTATE AMINOTRANSFERASE 2021-10-15 16:56:00 Kaitlin Thompson MD TOTAL PROTEIN 2021-10-15 16:56:00 Kaitlin Thompson MD on FRACTIONATED BILIRUBIN 2021-10-15 16:56:[address] CHEST W CONTRAST 2021-10-15 15:56:00 Nicolette Morataya MD And erson POC CREATININE 2021-10-15 15:21:00 Nicolette Morataya MD PATHOLOGY BIOPSY INTERPRETATION 2021-09-30 14:31:00 Mere Stein MD EXCISION 2021-09-30 14:30:02 Claudia Stein MD EXCISION 2021-09-30 14:29:55 Claudia Stein MD [facility] SITE 1 2021-09-30 14:29:50 Claudia Stein MD [facility] SITE 1 2021-09-30 14:29:44 Claudia Stein MD COMPLETE BLOOD COUNT W/ 2021-09-18 16:30:00 [...] ELECTROLYTE PANEL 2021-09-18 16:30:00 Kaitlin Thompson MD rson SERUM CREATININE 2021-09-18 16:30:00 Kaitlin Thompson MD Scar son .GLOMERULAR FILTRATION RATE 2021-09-18 16:30:00 Kaitlin Thompson MD CALCIUM LEVEL TOTAL 2021-09-18 16:30:00 Kaitlin Thompson MD ALBUMIN LEVEL 2021-09-18 16:30:00 Kaitlin Thompson MD on ALKALINE PHOSPHATASE 2021-09-18 16:30:00 Kaitlin Thompson MD ALANINE AMINOTRANSFERASE 2021-09-18 16:30:00 Kaitlin Thompson MD ASPARTATE AMINOTRANSFERASE 2021-09-18 16:30:00 Kaitlin Thompson MD TOTAL PROTEIN 2021-09-18 16:30:00 Kaitlin Thompson MD on FRACTIONATED BILIRUBIN 2021-09-18 16:30:00 Kaitlin Thompson [...] MD ELECTROLYTE PANEL 2021-08-20 15:23:36 Kaitlin Thompson MDon SERUM CREATININE 2021-08-20 15:23:36 Kaitlin Thompson MD Sacr son .GLOMERULAR FILTRATION RATE 2021-08-20 15:23:36 Kaitlin Thompson MD CALCIUM LEVEL TOTAL 2021-08-20 15:23:36 FossellaKaitlin MDson ALBUMIN LEVEL 2021-08-20 15:23:36 Fossella, Kaitlin Luciano on ALKALINE PHOSPHATASE 2021-08-20 15:23:36 FossKaitlin rome MDon ALANINE AMINOTRANSFERASE 2021-08-20 15:23:36 FossellaKaitlin MD ASPARTATE AMINOTRANSFERASE 2021-08-20 15:23:36 Kaitlin Thompson MD TOTAL PROTEIN 2021-08-20 15:23:36 FossellaKaitlin MD on FRACTIONATED BILIRUBIN 2021-08-20 15:23:36 FossellaKaitlin MD COMPLETE BLOOD COUNT W/ 2021-07-24 19:10:00 FossKaitlin rome DIFFERENTIAL COMPREHENSIVE METABOLIC PANEL 2021-07-24 19:10:00 Fossella, Nacho Moreno MAGNESIUM LEVEL 2021-07-24 19:10:00 Fossella, Kaitlin Luciano on Results CBC 2021-07-24 19:10:00 FossellaKaitlin MD on MANUAL DIFFERENTIAL 2021-07-24 19:10:00 Kaitlin Thompson MD derson GLUCOSE LEVEL 2021-07-24 19:10:00 FossellaKaitlin MD on BLOOD UREA NITROGEN 2021-07-24 19:10:00 FossKaitlin rome MD ELECTROLYTE PANEL 2021-07-24 19:10:00 Kaitlin Thompson MD rson SERUM CREATININE 2021-07-24 19:10:00 FossellaKaitlin MD Scar son .GLOMERULAR FILTRATION RATE 2021-07-24 19:10:00 Kaitlin Thompson MD CALCIUM LEVEL TOTAL 2021-07-24 19:10:00 Kaitlin Thompson MD ALBUMIN LEVEL 2021-07-24 19:10:00 Kaitlin Thompson MD on ALKALINE PHOSPHATASE 2021-07-24 19:10:00 Kaitlin Thompson MDrson ALANINE AMINOTRANSFERASE 2021-07-24 19:10:00 Kaitlin Thompson MD ASPARTATE AMINOTRANSFERASE 2021-07-24 19:10:00 FossKaitlin rome MD TOTAL PROTEIN 2021-07-24 19:10:00 Kaitlin Thompson [...] Thompson MD GLUCOSE LEVEL 2021-06-25 13:36:16 Kaitlin Thomspon MD on BLOOD UREA NITROGEN 2021-06-25 13:36:16 Kaitlin Thompson MD ELECTROLYTE PANEL 2021-06-25 13:36:16 Kaitlin Thompson MD rslast SERUM CREATININE 2021-06-25 13:36:16 Kaitlin Thompson MD Scar son .GLOMERULAR FILTRATION RATE 2021-06-25 13:36:16 Kaitlin Thompson MD CALCIUM LEVEL TOTAL 2021-06-25 13:36:16 Kaitlin Thompson MDson ALBUMIN LEVEL 2021-06-25 13:36:16 Kaitlin Thompson MD on ALKALINE PHOSPHATASE 2021-06-25 13:36:16 Kaitlin Thompson MD ALANINE AMINOTRANSFERASE 2021-06-25 13:36:16 Kaitlin Thompson MD ASPARTATE AMINOTRANSFERASE 2021-06-25 13:36:16 Kaitlin Thompson MD TOTAL PROTEIN 2021-06-25 13:36:16 Kaitlin Thompson MD on FRACTIONATED BILIRUBIN 2021-06-25 13:36:16 Kaitlin Thompson MD THYROID STIMULATING HORMONE 2021-05-21 15:41:00 FossKaitlin rome MD FREE THYROXINE 2021-05-21 15:41:00 Fosswild, Kaitlin Luciano on COMPLETE BLOOD COUNT W/ 2021-05-21 15:41:00 FossKaitlin rome DIFFERENTIAL COMPREHENSIVE METABOLIC PANEL 2021-05-21 15:41:00 FossellaNacho MD MAGNESIUM LEVEL 2021-05-21 15:41:00 Fossella, Kaitlin Luciano on Results CBC 2021-05-21 15:41:00 FossellaKaitlin MD on MANUAL DIFFERENTIAL 2021-05-21 15:41:00 ErrolellaKaitlin MD GLUCOSE LEVEL 2021-05-21 15:41:00 FossellaaKitlin MD on BLOOD UREA NITROGEN 2021-05-21 15:41:00 FossKaitlin rome MD ELECTROLYTE PANEL 2021-05-21 15:41:00 FossellaKaitlin MD SERUM CREATININE 2021-05-21 15:41:00 FossellaKaitlin MD Scar son .GLOMERULAR FILTRATION RATE 2021-05-21 15:41:00 Kaitlin Thompson MD CALCIUM LEVEL TOTAL 2021-05-21 15:41:00 FossellaKaitlin MD ALBUMIN LEVEL 2021-05-21 15:41:00 FossellaKaitlin MD on ALKALINE PHOSPHATASE 2021-05-21 15:41:00 FossellaKaitlin MD ALANINE AMINOTRANSFERASE 2021-05-21 15:41:00 FossKaitlin rome MD ASPARTATE AMINOTRANSFERASE 2021-05-21 15:41:00 FossellaKaitlin MD TOTAL PROTEIN 2021-05-21 15:41:00 ErrolellaKaitlin MD on FRACTIONATED BILIRUBIN 2021-05-21 15:41:[address] CHEST ABDOMEN W CONTRAST 2021-04-23 16:32:37 Thu Morataya MD COMPREHENSIVE METABOLIC PANEL 2021-04-23 14:04:00 FossellaNacho MD MAGNESIUM LEVEL 2021-04-23 14:04:00 Fossella, Kaitlin Luciano on PHOSPHORUS LEVEL 2021-04-23 14:04:00 Fossella, Kaitlin Abbott son THYROID STIMULATING HORMONE 2021-04-23 14:04:00 Fossella, Kaitlin Moreno FREE THYROXINE 2021-04-23 14:04:00 Fossella, Kaitlin Luciano on COMPLETE BLOOD COUNT W/ 2021-04-23 14:04:00 Fossella, Kaitlin Moreno DIFFERENTIAL GLUCOSE LEVEL 2021-04-23 14:04:00 Fossella, Kaitlin Luciano on BLOOD UREA NITROGEN 2021-04-23 14:04:00 Fossella, Kaitlin rocha ELECTROLYTE PANEL 2021-04-23 14:04:00 Fossella, Kaitlin huff SERUM CREATININE 2021-04-23 14:04:00 Fossella, Kaitlin Cisse MD Scar son .GLOMERULAR FILTRATION RATE 2021-04-23 14:04:00 Errolella, Kaitlin Moreno CALCIUM LEVEL TOTAL 2021-04-23 14:04:00 Fossella, Kaitlin rocha ALBUMIN LEVEL 2021-04-23 14:04:00 Fossella, Kaitlin Luciano on ALKALINE PHOSPHATASE 2021-04-23 14:04:00 Fossella, Kaitlin ott ALANINE AMINOTRANSFERASE 2021-04-23 14:04:00 Fossella, Kaitlin Moreno ASPARTATE AMINOTRANSFERASE 2021-04-23 14:04:00 FossellaKaitlin MD TOTAL PROTEIN 2021-04-23 14:04:00 Fossella, Kaitlin Luciano on FRACTIONATED BILIRUBIN 2021-04-23 14:04:00 FossellaKaitlin MD Results CBC 2021-04-23 14:04:00 Fossella, Kaitlin Luciano on MANUAL DIFFERENTIAL 2021-04-23 14:04:00 Fossella, Kaitlin rocha COMPLETE BLOOD COUNT W/ 2021-03-27 19:10:00 Fossella, Kaitlin Moreno DIFFERENTIAL COMPREHENSIVE METABOLIC PANEL 2021-03-27 19:10:00 Fossella, Nacho Moreno MAGNESIUM LEVEL 2021-03-27 19:10:00 Fossella, Kaitlin Luciano on PHOSPHORUS LEVEL 2021-03-27 19:10:00 FossellaKaitlin MD Scar son THYROID STIMULATING HORMONE 2021-03-27 19:10:00 Kaitlin Thompson MD FREE THYROXINE 2021-03-27 19:10:00 FossKaitlin rome MD on URIC ACID 2021-03-27 19:10:00 Kaitlin Thompson MD on Results CBC 2021-03-27 19:10:00 FossKaitlin rome MD on MANUAL DIFFERENTIAL 2021-03-27 19:10:00 FossellaKaitlin MDson GLUCOSE LEVEL 2021-03-27 19:10:00 FossellaKaitlin MD on BLOOD UREA NITROGEN 2021-03-27 19:10:00 FossellaKaitlin MDson ELECTROLYTE PANEL 2021-03-27 19:10:00 FossellaKaitlin MD rson SERUM CREATININE 2021-03-27 19:10:00 FossellaKaitliner son .GLOMERULAR FILTRATION RATE 2021-03-27 19:10:00 Kaitlin Thompson MD CALCIUM LEVEL TOTAL 2021-03-27 19:10:00 Kaitlin Thompson MD ALBUMIN LEVEL 2021-03-27 19:10:00 Kaitlin Thompson MD on ALKALINE PHOSPHATASE 2021-03-27 19:10:00 FossKaitlin rome MD ALANINE AMINOTRANSFERASE 2021-03-27 19:10:00 Kaitlin Thompson MD ASPARTATE AMINOTRANSFERASE 2021-03-27 19:10:00 Kaitlin Thompson MD TOTAL PROTEIN 2021-03-27 19:10:00 FossKaitlin rome MD on FRACTIONATED BILIRUBIN 2021-03-27 19:10:00 Kaitlin Thompson MD [facility] SITE 2 2021-03-20 15:47:23 Zurdo Walker MD [facility] SITE 1 2021-03-20 15:45:47 Zurdo Walker MD PATHOLOGY BIOPSY INTERPRETATION 2021-03-06 15:20:00 Me scott Bertrand MD PETCT SUBSEQUENT TREATMENT 2021-03-06 14:00:22 Kaitlin Thompson MD STRATEGY POC GLUCOSE SCREEN 2021-03-06 12:22:00 Fossella, Kaitlin Dietz COMPLETE BLOOD COUNT W/ 2021-03-06 11:48:00 Fossella, Kaitlin Moreno DIFFERENTIAL COMPREHENSIVE METABOLIC PANEL 2021-03-06 11:48:00 Fossella, Nacho Moreno MAGNESIUM LEVEL 2021-03-06 11:48:00 Fossella, Kaitlin Luciano on PHOSPHORUS LEVEL 2021-03-06 11:48:00 Fossella, Kaitlin Cisse MD Scar son THYROID STIMULATING HORMONE 2021-03-06 11:48:00 Fossella, Kaitlin Moreno FREE THYROXINE 2021-03-06 11:48:00 Fossella, Kaitlin Luciano on Results CBC 2021-03-06 11:48:00 Fossella, Kaitlin Luciano on MANUAL DIFFERENTIAL 2021-03-06 11:48:00 Fossella, Kaitlin rocha GLUCOSE LEVEL 2021-03-06 11:48:00 Fossella, Kaitlin Luciano on BLOOD UREA NITROGEN 2021-03-06 11:48:00 Fossella, Kaitlin rocha ELECTROLYTE PANEL 2021-03-06 11:48:00 Fossella, Kaitlin huff SERUM CREATININE 2021-03-06 11:48:00 Fossella, Kaitlin Cisse MD Scar son .GLOMERULAR FILTRATION RATE 2021-03-06 11:48:00 Kaitlin Thompson MD CALCIUM LEVEL TOTAL 2021-03-06 11:48:00 Fossella, Kaitlin rocha ALBUMIN LEVEL 2021-03-06 11:48:00 FossellaKaitlin MD on ALKALINE PHOSPHATASE 2021-03-06 11:48:00 Fossella, Kaitlin ott ALANINE AMINOTRANSFERASE 2021-03-06 11:48:00 FossellaKatilin MD ASPARTATE AMINOTRANSFERASE 2021-03-06 11:48:00 FossKaitlin rome MD TOTAL PROTEIN 2021-03-06 11:48:00 Fossella, Kaitlin Luciano on FRACTIONATED BILIRUBIN 2021-03-06 11:48:00 FossKaitlin rome MD GENERAL LABORATORY ADD ON TEST 2021-03-03 13:15:00 Adama Steen MD BASIC METABOLIC PANEL, CALCIUM 2021-03-03 12:51:00 Adama Steen MD TOTAL MAGNESIUM LEVEL 2021-03-03 12:51:00 Adama Steen MD PHOSPHORUS LEVEL 2021-03-03 12:51:00 Adama Steen MD GLUCOSE LEVEL 2021-03-03 12:51:00 Adama Steen MD BLOOD UREA NITROGEN 2021-03-03 12:51:00 Adama Steen MD ELECTROLYTE PANEL 2021-03-03 12:51:00 Adama Steen MD Anderso ebenezer SERUM CREATININE 2021-03-03 12:51:00 Adama Steen MD .GLOMERULAR FILTRATION RATE 2021-03-03 12:51:00 Adama Steen MD CALCIUM LEVEL TOTAL 2021-03-03 12:51:00 Adama Steen MD Scar hussein US LEG VENOUS DOPPLER RIGHT 2021-03-02 22:15:17 Adama Steen MD BASIC METABOLIC PANEL, CALCIUM 2021-03-02 19:42:00 Je Hartmann MD TOTAL GLUCOSE LEVEL 2021-03-02 19:42:00 Martell Garcia MD BLOOD UREA NITROGEN 2021-03-02 19:42:00 Martell Garcia MD Scar [facility] ELECTROLYTE PANEL 2021-03-02 19:42:00 Martell Garcia MDo ebenezer SERUM CREATININE 2021-03-02 19:42:00 Martell Garcia MD .GLOMERULAR FILTRATION RATE 2021-03-02 19:42:00 Martell Garcia MD CALCIUM LEVEL TOTAL 2021-03-02 19:42:00 Martell Garcia MD [facility] BASIC METABOLIC PANEL, CALCIUM 2021-03-02 10:43:00 MD Josh Strong TOTAL Jose F Daniel ADRENOCORTICOTROPIC HORMONE 2021-03-02 10:43:00 Noe James MD FOLLICLE STIMULATING HORMONE 2021-03-02 10:43:00 Noe James MD LEVEL PROLACTIN 2021-03-02 10:43:00 Noe James MD LUTEINIZING HORMONE 2021-03-02 10:43:00 Noe James MD GLUCOSE LEVEL 2021-03-02 10:43:00 Martell Garcia MD [...] MD URINALYSIS MICROSCOPIC 2021-03-02 10:12:00 Wade Weeks MD derson URINALYSIS WITH MICROSCOPIC IF 2021-03-02 10:12:00 Adama [...] MD CALCIUM LEVEL TOTAL 2021-03-02 06:06:00 Martell Garcia MD THYROID STIMULATING HORMONE 2021-03-02 02:24:00 Wade Weeks MD FREE THYROXINE 2021-03-02 02:24:00 Wade Weeks MD OSMOLALITY 2021-03-02 02:24:00 Wade Weeks MD URIC ACID 2021-03-02 02:24:00 Wade Weeks MD BASIC METABOLIC PANEL, CALCIUM 2021-03-02 02:24:00 MD Josh Strong TOTAL Jose F Daniel GLUCOSE LEVEL 2021-03-02 02:24:00 Martell Garcia MD BLOOD UREA NITROGEN 2021-03-02 02:24:00 Martell Garcia MD Scar son ELECTROLYTE PANEL 2021-03-02 02:24:00 Martell Garcia MD n SERUM CREATININE 2021-03-02 02:24:00 Martell Garcia MD [...] PHOSPHORUS LEVEL 2021-03-01 21:28:00 Elizabeth Shine MD son LACTATE DEHYDROGENASE 2021-03-01 21:28:00 Elizabeth Shine MD AMYLASE LEVEL 2021-03-01 21:28:00 Elizabeth Shine MD on LIPASE LEVEL 2021-03-01 21:28:00 Elizabeth Shine MD Mustapha on Results CBC 2021-03-01 21:28:00 Elizabeth Shine MD Mustapha on MANUAL DIFFERENTIAL 2021-03-01 21:28:00 Elizabeth Shine MD derson GLUCOSE LEVEL 2021-03-01 21:28:00 Elizabeth Shine MD Mustapha on BLOOD UREA NITROGEN 2021-03-01 21:28:00 Elizabeth Shine MDson ELECTROLYTE PANEL 2021-03-01 21:28:00 Elizabeth Shine MD [...] MD MAGNESIUM LEVEL 2021-02-06 13:56:00 Nicolette Morataya MDo n PHOSPHORUS LEVEL 2021-02-06 13:56:00 Nicolette Morataya MD Mustapha on LACTATE DEHYDROGENASE 2021-02-06 13:56:00 Nicolette Morataya MDrslast Results CBC 2021-02-06 13:56:00 Nicolette Morataya MD Andjaquelin sol MANUAL DIFFERENTIAL 2021-02-06 13:56:00 Nicolette Morataya MD And erson GLUCOSE LEVEL 2021-02-06 13:56:00 Nicolette Morataya MD Andrgiso n BLOOD UREA NITROGEN 2021-02-06 13:56:00 Nicolette Morataya MD And erson ELECTROLYTE PANEL 2021-02-06 13:56:00 Nicolette Morataya MD Scar son SERUM CREATININE 2021-02-06 13:56:00 Nicolette Morataya MD Mustapha on .GLOMERULAR FILTRATION RATE 2021-02-06 13:56:00 Thu Morataya MD CALCIUM LEVEL TOTAL 2021-02-06 13:56:00 Nicolette Morataya MD And erson ALBUMIN LEVEL 2021-02-06 13:56:00 Nicolette Morataya MD ALKALINE PHOSPHATASE 2021-02-06 13:56:00 Nicolette Morataya MD ALANINE AMINOTRANSFERASE 2021-02-06 13:56:00 Nicolette Morataya ASPARTATE AMINOTRANSFERASE 2021-02-06 13:56:00 Nicolette Morataya MD TOTAL PROTEIN 2021-02-06 13:56:00 Nicolette Morataya MD FRACTIONATED BILIRUBIN 2021-02-06 13:56:00 Nicolette Morataya MD FREE THYROXINE 2021-02-06 13:56:00 Nicolette Morataya MD THYROID STIMULATING HORMONE 2021-02-06 13:56:00 Thu Morataya MD Encounters Start End Encounter Admission Attending Care Care Encounter Source Date/Time Date/Time Type Type Clinicians Facility Department ID 2022-01-06 Outpatient DENNY MASTERS MDA [id number] 07:00:44 GE sol 2022-01-07 2022-01-07 Outpatient JAMES THOMPSON MDA MDA [id number] 10:30:10 14:46:28 KAITLIN sol 2022-01-01 2022-01-01 Outpatient JAMES HILLMAN, MDA MDA [id number] 09:30:00 23:59:00 NICOLETTE Coy didi n 2022-01-01 2022-01-01 Outpatient JAY, MDA MDA [id number] 10:05:59 11:59:16 KAITLIN sol 2021-12-23 2021-12-23 Outpatient VIDHI, MDA MDA [id number] 13:12:34 23:59:00 NICOLETTE Zbigniewmarky tolbert n 2021-12-23 2021-12-23 Outpatient CAMI, MDA MDA [id number] 13:11:54 15:11:31 BALDEMAR sol 2021-12-23 2021-12-23 Outpatient MAXWELL, MDA MDA [id number] 12:54:02 13:11:00 LAUREN sol 2021-12-23 2021-12-23 Outpatient MAXWELL, MDA MDA [id number] 12:06:15 12:06:15 LAUREN sol 2021-12-10 2021-12-10 Outpatient JAY, MDA MDA [id number] 07:32:55 09:20:33 KAITLIN sol 2021-12-09 2021-12-09 Outpatient JAY, MDA MDA [id number] 09:04:47 09:04:47 KAITLIN sol 2021-12-09 2021-12-09 Outpatient JAY, MDA MDA [id number] 08:51:26 08:51:51 KAITLIN sol 2021-11-14 2021-11-14 Outpatient VIDHI, MDA MDA [id number] 12:51:39 16:51:50 NICOLETTE Zbigniewmarky tolbert n 2021-11-13 2021-11-13 Outpatient VIDHI, MDA MDA [id number] 08:45:46 08:47:28 NICOLETTERUDDY Henleymarky lópezo n 2021-11-13 2021-11-13 Outpatient JAY, MDA MDA [id number] 08:34:28 08:34:28 KAITLIN sol 2021-10-17 2021-10-17 Outpatient EL FOSSELLA, MDA MDA [id number] 10:07:53 10:07:53 KAITLIN sol 2021-10-17 2021-10-17 Outpatient EL FOSSELLA, MDA MDA [id number] 08:29:28 08:29:28 KAITLIN sol 2021-10-15 2021-10-15 Outpatient EL FOSSELLA, MDA MDA [id number] 10:25:49 23:59:00 KAITLIN sol 2021-10-15 2021-10-15 Outpatient EL VIDHI, MDA MDA [id number] 08:51:49 10:24:00 NICOLETTEHELEN sol 2021-09-30 2021-09-30 Outpatient EL KEN, MDA MDA [id number] 07:48:39 11:39:56 CLAUDIA sol 2021-09-19 2021-09-19 Outpatient EL ERROLELLA, MDA MDA [id number] 08:51:28 10:48:39 KAITLIN sol 2021-09-18 2021-09-18 Outpatient EL FOSSELLA, MDA MDA [id number] 10:06:02 23:59:00 KAITLIN sol 2021-09-18 2021-09-18 Outpatient EL FOSSELLA, MDA MDA [id number] 11:27:51 13:09:33 KAITLIN sol 2021-08-22 2021-08-22 Outpatient EL MDA MDA [id number] 13:52:54 16:06:38 Mustapha sol 2021-08-21 2021-08-21 Outpatient EL FOSSELLA, MDA MDA [id number] 10:48:45 12:12:50 KAITLIN sol 2021-08-21 2021-08-21 Outpatient EL PAPADOPOULO MDA MDA [id number] 09:42:21 10:39:56 COURT Cunningham 2021-08-20 2021-08-20 Outpatient EL MDA MDA [id number] MD 09:26:07 09:26:07 Mustapha sol 2021-08-20 2021-08-20 Outpatient EL MDA MDA [id number] MD 08:32:02 09:18:35 Mustapha sol 2021-07-25 2021-07-25 Outpatient EL MDA MDA [id number] 11:06:38 15:10:56 Mustapha sol 2021-07-24 2021-07-24 Outpatient EL MDA MDA [id number] 14:03:29 23:59:00 Mustapha sol 2021-07-24 2021-07-24 Outpatient EL FOSSELLA, MDA MDA [id number] 15:12:11 15:29:00 KAITLIN sol 2021-06-26 2021-06-26 Outpatient EL FOSSELLA, MDA MDA [id number] 14:29:17 14:29:17 KAITLIN sol 2021-06-26 2021-06-26 Outpatient EL FOSSELLA, MDA MDA [id number] 11:17:51 14:02:23 KAITLIN sol 2021-06-25 2021-06-25 Outpatient EL VIDHI, MDA MDA [id number] 08:41:02 08:41:02 NICOLETTE sol 2021-06-25 2021-06-25 Outpatient EL FOSSELLA, MDA MDA [id number] 08:26:55 08:30:34 KAITLIN sol 2021-05-29 2021-05-29 Outpatient EL FOSSELLA, MDA MDA [id number] 11:03:03 14:24:28 KAITLIN sol 2021-05-21 2021-05-21 Outpatient EL FOSSELLA, MDA MDA [id number] 10:13:50 23:59:00 KAITLIN sol 2021-05-21 2021-05-21 Outpatient EL VIDHI, MDA MDA [id number] 10:44:24 13:03:33 NICOLETTE sol 2021-05-01 2021-05-01 Outpatient EL FOSSELLA, MDA MDA [id number] 11:37:12 17:16:50 KAITLIN sol 2021-04-24 2021-04-24 Outpatient EL FOSSELLA, MDA MDA [id number] 10:40:41 11:51:15 KAITLIN sol 2021-04-23 2021-04-23 Outpatient EL VIDHI, MDA MDA [id number] MD 09:42:56 09:42:56 NICOLETTE tolbert n 2021-04-23 2021-04-23 Outpatient EL JAY, MDA MDA [id number] 09:03:53 09:36:33 KAITLIN sol 2021-04-03 2021-04-03 Outpatient EL FOSSELLA, MDA MDA [id number] 13:49:14 15:39:37 KAITLIN sol 2021-03-27 2021-03-27 Outpatient EL FOSSWILD, MDA MDA [id number] 13:54:43 23:59:00 KIATLIN sol 2021-03-27 2021-03-27 Outpatient EL FOSSWILD, MDA MDA [id number] 14:44:39 16:13:07 KAITLIN sol 2021-03-20 2021-03-20 Outpatient EL KEN, MDA MDA [id number] 07:57:51 11:28:17 CLAUDIA sol Results Test Description Test Time Test Comments Results Result Comments Source T3 2022-01-01 16:00:13 Test Item Value Reference Range Interpretation Comme nts T3 Total (test code = 3053-6) 76 ng/dL 80-200 L Lab Interpretation (test code = 07312-8) Abnormal MD MorenoFractionated Wnmdpumvb1070-07-03 15:45:19 Test Item Value Reference Range Interpretation Comments Bili Total (test 1.1 mg/dL See_Comment Indocyanine Green (ICG) code = 1975-2) may cause fal sely elevated biliru bin results. Total and direct bilirubin must not be measured from s amples containing indo cyanine green. False el evation of total bilirubin can be seen in patient s with IgG concentrations above 28 g/L. [Automate d message] The system kingsky generated this result transmitted ref erence range: <=1.2. T he reference range was not used to interpr et this result as normal/abnormal . Bili Direct (test 0.3 mg/dL See_Comment Indocyanin e Green (ICG) code = 1968-7) may cause fal sely elevated biliru bin results. Total and direct bilirubin must not be measured from s amples containing indo cyanine green. [Automat ed message] The sy stem which generated this result transmitted ref erence range: <=0.3. T he reference range was not used to interpr et this result as normal/abnormal . Bili Indirect (test 0.8 mg/dL 0.0-0.9 code = 1971-1) MD MorenoUric Tgfc6736-06-38 15:45:18 Test Item Value Reference Range Interpretation Comments Uric Acid (test code = 3084-1) 5.7 mg/dL 3.4-7.0 MD MorenoTotal Atdmsjz5920-53-36 15:45:17 Test Item Value Reference Range Interpretation Comments Total Protein (test code = 2885-2) 6.2 g/dL 6.4-8.3 L Lab Interpretation (test code = Abnormal 73435-1) MD MorenoCalcium Rkmze2765-26-84 15:45:16 Test Item Value Reference Range Interpretation Comments Calcium Lvl (test code = 77210-2) 9.8 mg/dL 8.4-10.2 MD MorenoSjnxwkavERW5140-18-93 15:45:15 Test Item Value Reference Range Interpretation Comments ALT (test code = 23 U/L See_Comment [Automated message] The 1741-) system which ge nerated this result transmit cliff reference range : <=41. The reference range was not used to interpr et this result as vidya l/abnormal. MD MorenoAwvpkdwpUZH3448-59-86 15:45:14 Test Item Value Reference Range Interpretation Comments BUN (test code = 3094-0) 36 mg/dL 6-23 H Lab Interpretation (test code = Abnormal 80783-2) MD MorenoGlucose Wplcx6951-04-87 15:45:13 Test Item Value Reference Range Interpretation Comments Glucose Level (test code 130 mg/dL 70-99 H Eff ective 04/30/16, = 2345-7) the glucose reference inter vals have been updat ed based on [place] an Diabetes Associ ation guidelines (Standards of Medical Care in Diabetes 2016. Diabetes Care 2 016; 39: S13-S22).Fa sting blood glucose:Normal: 70-99 mg/dLImpa ired fasting glucose (increased risk for diabetes or pre-diabetes): 100-125 mg/dLDiabetes mellitus: >/=1 26 mg/dL Random bl ood glucose:Normal: 70-199 mg/dLNot e: Random glucose >100 mg/dL is associ ated with increased risk for diabetes Lab Interpretation (test Abnormal code = 29027-4) MD MorenoElectrolyte Rnyko1675-84-24 15:45:03 Test Item Value Reference Range Interpretation Comments Sodium Lvl (test code = 132 See_Comment L [Au tomated message] 8031-2) The system kingsky generated this result transmitted ref erence range: 136 - 14 5 mEq/L. The refe rence range was not u sed to interpret this result as normal/abnor mal. Potassium Lvl (test code 4.2 See_Comment [A utomated message] = 9943-3) The system kingsky generated this result transmitted ref erence range: 3.5 - 5. 1 mEq/L. The refe rence range was not u sed to interpret this result as normal/abnor mal. Chloride (test code = 97 See_Comment L [Auto mated message] 2074-0) The system kingsky generated this result transmitted ref erence range: 98 - 107 mEq/L. The refe rence range was not u sed to interpret this result as normal/abnor mal. CO2 (test code = 2027-) 27 See_Comment [A utomated message] The system kingsky generated this result transmitted ref erence range: 22 - 29 mEq/L. The reference r tejas was not used to interpret this result as normal/abnor mal. Anion Gap (test code = 8 See_Comment [Aut omated message] 24206-3) The system kingsky generated this result transmitted ref erence range: 4 - 14 m Eq/L. The reference r tejas was not used to interpret this result as normal/abnor mal. Lab Interpretation (test Abnormal code = 07650-5) MD MorenoGlomerular Filtration Albi3259-55-14 15:45:01 Test Item Value Reference Range Interpretation Comments eGFR-AA (test code = 50 See_Comment L Normal eGFR: >= 60 65942-5) mL/min/1.73 m2N ote: The eGFR is ruperto culated using the CKD-E PI equation. The e GFR declines with a ge. eGFR <60 mL/min /1.73 m2 is considere d as "decreased". Th is equation should only be used for pat ients 18 and older. According to th e National Kidney Foundation's Ki dney Disease Outcome Quality Initiat jeannie (KDOQI) classif ication and 2012 Kidney Disease Improvi ng Global Outcomes (KDIGO) Clinica l Practice Guidel ine, the stage of CK D should be categ orized based on estima cliff GFR. Stage Desc ription GFR mL/mi n/1.73 m21 Normal or h igh GFR >=902 Mildly decreased GFR 60-893a M ildly to moderately decreased GFR 45-593b Moderat rafael to severely decrea sed GFR 30-444 Daniela rely decreased GFR 15-295 Kidney f ailure <15 [Auto mated message] The sy stem which generated this result transmit cliff reference range : >=60 mL/min/1.73 sq. m. The reference range was not used to int erpret this result as normal/abnormal . eGFR-GOLDIE (test code = 43 See_Comment L Normal eGFR: >= 60 08585-1) mL/min/1.73 m2N ote: The eGFR is ruperto culated using the CKD-E PI equation. The e GFR declines with a ge. eGFR <60 mL/min /1.73 m2 is considere d as "decreased". Th is equation should only be used for pat ients 18 and older. According to th e National Kidney Foundation's dney Disease Outcome Quality Initiat jeannie (KDOQI) classif ication and 2012 Kidney Disease Improvi ng Global Outcomes (KDIGO) Clinica l Practice Guidel ine, the stage of CK D should be categ orized based on estima cliff GFR. Stage Desc ription GFR mL/mi n/1.73 m21 Normal or h igh GFR >=902 Mildly decreased GFR 60-893a M ildly to moderately decreased GFR 45-593b Moderat rafael to severely decrea sed GFR 30-444 Daniela rely decreased GFR 15-295 Kidney f ailure <15 [Auto mated message] The sy stem which generated this result transmit cliff reference range : >=60 mL/min/1.73 sq. m. The reference range was not used to int erpret this result as normal/abnormal . Lab Interpretation Abnormal (test code = 04811-3) MD MorenoMagnesium Demau6176-15-56 15:45:00 Test Item Value Reference Range Interpretation Comments Magnesium (test code = 12226-8) 2.1 mg/dL 1.6-2.6 MD MorenoAlkaline Kwcupmpvper9815-74-10 15:44:59 Test Item Value Reference Range Interpretation Comments Alk Phos (test code = 6768-6) 89 U/L 40-129 MD MorenoAlbumin Jomka2648-55-41 15:44:58 Test Item Value Reference Range Interpretation Comments Albumin Lvl (test code 3.6 See_Comment [Aut omated message] The = 4004) system which ge nerated this result tra nsmitted reference range : 3.5 - 5.2 gm/dL. The refe rence range was not used to interpret this result as normal/abnormal . MD MorenoAspartate Qpxfeeqfpvkemrfc0412-29-05 15:44:57 Test Item Value Reference Range Interpretation Comments AST (test code = 23 U/L See_Comment [Automated message] The 1928) system which ge nerated this result transmit cliff reference range : <=40. The reference range was not used to interpr et this result as vidya l/abnormal. MD Moreno.Serum Xzjnosqonx0258-48-06 15:44:55 Test Item Value Reference Range Interpretation Comments Creatinine (test code = 2160-0) 1.47 mg/dL 0.67-1.17 H Lab Interpretation (test code = Abnormal 94719-9) MD MorenoHpobjivkFLB3805-70-64 15:44:54 Test Item Value Reference Range Interpretation Comments TSH (test code = 3.32 See_Comment [Automated message] The 93084-5) system which ge nerated this result transmit cliff reference range : 0.27 - 4.20 mcunit/mL. The reference range was not used to interpr et this result as ivdya l/abnormal. MD MorenoFree [id number] 15:44:53 Test Item Value Reference Range Interpretation Comments T4 Free (test code = 3024-7) 1.29 ng/dL 0.93-1.70 MD MorenoCaaanizkBsjnbmlrvzsw5464-92-61 15:17:14 Test Item Value Reference Range Interpretation Comments Neutrophil % (test code = 76.8 % 42.0-66.0 H 770-8) Lymphocyte % (test code = 11.4 % 24.0-44.0 L 736-9) Monocyte % (test code = 9.1 % 2.0-7.0 H 5905-5) Eosinophil % (test code = 1.8 % 1.0-4.0 713-8) Basophil % (test code = 0.3 % 0.0-1.0 43128-4) IGRE % (test code = 0.6 % 0.0-0.4 H IGRE % c ount 75980-9) includes Metamyelocytes, Myelocytes, and Promyelocytes. Neutrophil Abs (test code 5.18 K/uL 1.70-7.30 = 751-8) Lymphocyte Abs (test code 0.77 K/uL 1.00-4.80 L = 731-0) Monocyte Abs (test code = 0.61 K/uL 0.08-0.70 742-7) Eosinophil Abs (test code 0.12 K/uL 0.04-0.40 = 711-2) Basophil Abs (test code = 0.02 K/uL 0.00-0.10 704-7) IG Abs (test code = 0.04 K/uL 0.00-0.04 76008-2) Lab Interpretation (test Abnormal code = 03910-7) MD Moreno.LSE5720-50-94 15:17:04 Test Item Value Reference Range Interpretation Comments WBC (test code = 6.7 K/uL 4.0-11.0 6690-2) RBC (test code = 789-8) 4.28 See_Comment L [Au tomated message] The system kingsky generated this result transmitted ref erence range: 4.50 - 6 .00 M/uL. The refer ence range was not u sed to interpret this result as normal/abnor mal. Hgb (test code = 718-7) 10.0 See_Comment L [Au tomated message] The system kingsky generated this result transmitted ref erence range: 14.0 - 1 8.0 gm/dL. The refe rence range was not u sed to interpret this result as normal/abnor mal. Hct (test code = 33.4 % 40.0-54.0 L 4544-3) MCV (test code = 787-2) 78 fL 82-98 L MCH (test code = 785-6) 23.4 pg 27.0-31.0 L MCHC (test code = 29.9 See_Comment L [Automate d message] 786-4) The system kingsky generated this result transmitted ref erence range: 31.0 - 3 6.0 gm/dL. The refe rence range was not u sed to interpret this result as normal/abnor mal. RDW-SD (test code = 49.9 fL 35.1-46.3 H 60256-2) RDW-CV (test code = 18.0 % 12.0-15.5 H 788-0) Platelet count (test 191 K/uL 140-440 code = 777-3) MPV (test code = 8.9 fL 4.0-10.4 24742-5) INRBC (test code = 0.0 % See_Comment The INRBC (instrument 10290-9) NRBC) value ref lects the enumeration of nucleated red b lood cells contained in a 200uL sampleof whole blood analyzed by the instrument. Thi s value maydiffer from the NRBC value repo rted in a manual differential,wh ich is based on a 100 cell differential. [Automated mess age] The system kingsky generated this result transmitted ref erence range: <=0.0. T he reference range was not used to int erpret this result as normal/abnormal . Lab Interpretation Abnormal (test code = 20374-8) MD MorenoProthrombin Xrjx6571-14-06 18:57:56 Test Item Value Reference Range Interpretation Comments PT (test code = 15.6 See_Comment H [Automated 0382-2) message] The system which generated this result transmitted reference range : 11.5 - 13.9 second(s). The reference range was not used to interpret this result as normal/abnormal . INR (test code = 1.33 0.90-1.10 H 6301-6) KATLNI (test code = KATLIN) This lab cannot be scheduled at the following locations due to collection/procc essing restrictions: [facility] and [facility]. Lab Interpretation Abnormal (test code = 93873-1) MD MorenoGeneral Laboratory Add-On [id number] 22:45:38 Test Item Value Reference Range Interpretation Comments Ordered (test code = 6568) Test Added Test Needed (test code = 7604) Free T4, TSH [facility] Vqxzzqvdsa8771-73-02 15:23:38 Test Item Value Reference Range Interpretation Comments POC Crea (test code 1.3 mg/dL 0.6-1.3 Medicati ons, = 58007-6) especially hydroxyurea or supplements, cyr ch as ascorbate, can interfere with test results causing a falsely and significantly h igher result than exp ected. If a problem is suspected with a patient's resul t, a sample should b e sent to the laborato for confirmatory te sting. Method descript ion: The i-STAT is a n analyzer used f or in vitro quantific ation of various anal ytes in whole blood. The device uses a s ronen disposable cart ridge which contains microfabricated sensors, a calibration frantz ution, fluidics system , and a waste chamber . Each test cartridge contains chemic ally sensitive biose nsors on a Smallaa ip that are config ured to perform spec ific tests. The microfabricated sensors measure analyte concent ration by an electroch emical assay. POC eGFR-AA (test 58 See_Comment L Normal eGF R >= 60 code = 06393-3) mL/min/1.73 m2 The eGFR is calcula cliff [...] julian lysis) [Automated mes kirk] The system whic [employer] generated this result transmitted ref erence range: >=60 mL/min/1.73 m2. The reference range was not used to int erpret this result as normal/abnormal . POC eGFR-GOLDIE (test 50 See_Comment L Normal eG FR >= 60 code = 49198-7) mL/min/1.73 m2 The eGFR is calcula cliff [...] julian lysis) [Automated mes kirk] The system [employer] h generated this result transmitted ref erence range: >=60 mL/min/1.73 m2. The reference range was not used to int erpret this result as normal/abnormal . POC Clean Dev (test Yes code = 6672) Performing Lab (test MDA Main Main [place] mpus code = 07665) [facility] nical Lab, [address] [place] [id number]; Napping Machine Operator: Danielle Nguyen MD Lab Interpretation Abnormal (test code = 99238-3) MD MorenoPathology Biopsy Iejaslpragfhgh5199-05-73 18:54:46 Test Item Value Reference Range Interpretation Comments Submitted Clinical History g4cufLCcJIEry2fzBGK (test code = 07756) mbGFuZzEwMzNcZnRuYm pcdWMxIHtccnRmMVxzc 5ChU2StFaBoLEtovgMu XGRlZmxhbmcxMDMzXGZ 0bmJqXHVjMVxkZWZmMH iiGw0zlTOpwMqyYbAqJ BSek8rqzfRWmbsbuFh6 w7ceJEKsBsT0iPJgGCj gA5lmrpGfdNRgXWKfVR g3hN92YAGszR7gtYOdK KzqoqVgTxM5YVhvGANw BsB8HCZmkYTgWDSuH9e yZWQwXGdyZWVuMFxibH CeUKV7zZdhp1Q2tLNul GVldHtcZjBcZnMyMiBO p0PdJNb5uXdzC5SfQXV yPvL7vJDlRYYtUTikWE SxVNPuugV8qY94ZZjhf xY7xKLim4Mcj78ng317 oU5dyBXjUBZ8WEOgJKG hkFRcQYEmKTR0PKYzaK OsS6rpCZXyDW3bbeioJ TjzNAaeCMNsgFJ3IMBv nVYzI7LuHOIqZVbzORX xfcb2DmWvJa0bbLDjlI kxNTetx8obu1avhYAeR aq3CBGtDdAiPjlpBHhz c4Cnb5upPDSprf9qJAN 0wGFybQgnl5G2nIBjMM MmpAFdkaInFYNpSkS2M TkrQZ2wop42WCJyXXE2 rd0jvMXxsEswptUznBJ tEFinH1CcTKQfe142SI XuC4RzTXAoz0B5ssRfZ sFfXNWwnBR4uxA7WJVz XAc6hSIuedG2iyAxtUC bV6tobZ9eKHAsTN9cdc xxw1bwSWaxPRgpXRFns GE9zuP9RPQjiYQzP8Tb iQ8yLYKvXDrhIBNhlmx 8QsDrUx1lxEKepNmpCQ xzYmtwYWdlXHBnbmNvb nRccGduZGVjXHBsYWlu XHBsYWluXGYwXGZzMjR feTqsaPasvP6fJvRdAp ArGNukJL0yWBUiN6grf CGgIETtZPTzT8jeGnOe pR7smXndIEdefsSjXAH gn9IyGGFzsTuzP9FrX9 yjx52rNM8qWTVqjJMil D6lETCrQXJ4DZrCUTXx PSW1AMgyPWZzBjAlDUt jL7JeqDKaBURpjN6qyK Xzx7SyNxEwnlDiLpK7Q qMjHJ4ghAobsQ7gYmMh BtNeAmpzKA2sAFKoK8m myAAkONQtWVNkA5bgPb SksQ9mcVatCThdmwTmD HBhcn19 Diagnosis (test code = 34) o8uuuXIxLZQhaUN5MdE uQLNtx9bxw9TfuKDfjX RmTWbaoCZevlLlxy03w CU7iI34OL9sZRCaKqT8 ODIgnoO3Kia9RPRzJIL loOHzS547e7glh0bvhj UgaKL2DSQhWZVbT2UtB Z5qDAYjgKGfB93jjHEn IEM1PXHfINDijFDpOPM cRQZ6QBNimCReN7reIT LvRF3zjcwjRJtcPQneI OAtsCF3CZVwjMMyJ3Ob LYWlYIqxBFIylps1OpV oPd2tpSChkLjfAIgnCG JkXHBsYWluXGZzMjBcY 1IyTGA1WEYgvI7qZZRu T3d4TKIxRLS6IILcwUv owMUxHuczPTZqgHm2Gd BcbGluNzIwXGNmMCBTa 2luIGFuZCBzdWJjdXRp aiL1gPCxBVcqVCgplnx md0XxY5csGTepd968cx Exf9Vsdl1beWDeVZUVW 8SIJCTAJXdaY3IDO5vG I44VLLIOV9KJZLGIFUP GINZPWKWQUdWJI7sJHE BQQVRURVJOUywgUElHT UVOVEVELCBJTktFRCBN LUAWKH7WFVUXXOBIPmK NPlhamH1iCTGbZ7yazl 97rpAkAWP2fS9nVzNgp VZkW7EzWRUuCVTdi0jt vBI1sRj7zQKyHYbkNMQ dB4KdCNYunO6hpaYkQR xwYXJcbGkwXGxpbjBcc YJaBBTzONNNJzALf3dc TENbYF85zpIfBSNpO4m pZXBvhMclx1I9EMItwj zwwQhwUZlpcR68IgTqN 3OrQLCfwT0cRI7wOGG2 IuW6uGbzPGaqqXtmmGE hbGluZyBzdXJnaWNhbC I0j8SlZH8iI7CyJpduW TNkKvWQWLvwL8AWGOAA VWQLTI4ZFBHiAOHZLNC SRklDSUFMIEFORCBFQV KXECFMU6JFFZANUOMIJ KTHTj2PYGDVVPRIGC0F IEFSRSBGUkVFLlxsaW5 kDGNeQvW5x8QfNgJoa9 ilf5FsHERzN7AozsvcX MIgPU4mHWLwDO5cLMZp oGjiZ4HubIRjne8crPf rNWBTDPDiX99sqVFqdT 5ccGFyfQ== Comment (test code = 9835) a3ftmJBuHRYvuJC2ArL fVJXdp6ifi2VjlLPnlB MyLNrfoQXwuhXsbo08v OX2zD41OD0cVAQqQmK9 TROsamB9Jxa4KQVeOCK pyLKgJ297o1izu2paoi FesVO5dGbpZGKknnkkI cC3DLxuKSAdhnifFWz3 SGcpRDPfmMD4VOFjxUP cM5FkXELsAS5ignz3EP F9JRauHHNjJwO9TQYpt TCfXQAygIbbUWvyw290 TQK8MnXaOAYongAwhGn vjY1yKnQpAIMMXAZkWp ogTXVsdGlwbGUgYWRka DHgx91kmPHlRIAwKGAl rAhqg2VjYXYiM9Ivp72 zIGhhdmUgYmVlbiBjdX PoCA6xUJT7ZM0pjfRlQ iAgXHBhcn0= Gross Description (test m8qtlUGaWKEytTHZFCe code = 6329689041) wMFxhbnNpXHNwbHRwZ3 SmppydMDgvJE7sTW7ql KnyhNTcaQXyJX2WCOSk ZmYxXHBhcGVydzEyMjQ hCPCpeCRitKA3IEDyVI 1hcmdsMTgwMFxtYXJnc sG4FSGgtZOeJ8LrICDc ND3mpjnbDOQ4DUwnnL7 tebBNBcmsRr0pbYTrbL tcZjFcZmNoYXJzZXQwX OUhkCuwMEHcRDj6oG3Q AeilN27ls6Q1Xlq1AYK cFDKmA7ZvLZ6bRZXnbQ DtU04VIdizBFE9KCRTM sbvLPZmRS5Fv4ykCWAs pPWqILG8GWojcQVbTXJ uTYTfOPp3UMVrSJctvT EzOU5agDabFwbhfWope 2VjdCBcXGlkIDUxMDAy TCpqMQWjHL2VHeBgRSO mZRK8HXHyXJp8DCz0MB 7RFjNeTVYvAIt9QHQoX pWoJEr5TJzsOY6NTMpq GAX2FUGpEeK1TSXqNgP cXHQgMiBcXGYgQXJpYW wgXFxmcyAxMCBcXGZiI FmcKsxwFNwnP56duKto mT0cWmwlbeRbMGC9HIJ hciANClxwbGFpblxlcG ljTmVzdERvYzEgDQpcb HRycGFyXGxpbjBccmlu MCANClxsdHJjaFxiXGN gGQybbyHiFPCobX7zUH JiW6k4SEOiJZK9OrfaC FxjZjAgIEEgdGFuLCBo YWlyYmVhcmluZywgaXJ aOTp4fCNoMOLpoI5vSE uhfNBxa30ffIIto0Tma E1nMZGdOkD9RYAgTdKh bSBhbmQgZXhjaXNlZCB 0byBhIGRlcHRoIDAuOS QrkJ3wSSJqANWtOSkwQ LSdj2F6nOPxAML9yXCk nCEpICE7ZFEdkEzgQRv pdGhvdXQgZGVzaWduYX Rjr15kHF1xAAvdyWgmA mUgYXNzaWduZWQgYXQg lOiwDDImWN7sA0auG0g xaA4rdQIvr57tVPEGoS Qhq3WuT3mtHD6dwHLrr 5IcgIZilXgqc8GexCxi bmVkLCBlbnRpcmVseSB ghCJgcJX4ZUXbx1AvlY JrhEwboWb9JEktQOAlA TW2ZuQSJOkpDONmGSbD RskiK08FQDekPtFwhDK vCa0vOJToqzpovD2yoz sgAlj0XYqsPzRhlMZ5V NjgXGCbwuoxuH1feqjm x0ShwbzoVLGvilDKEuI PM4SYG30eU06PGWtnIT EsIDEyOjAwIHRpcCwga V0xEAPgAMJnhPE5FDWw LUEzLCAxMjowMCBoYWx mLCAyIHBpZWNlcyBlYW HtPuRUCY3KXDukIcreB CBoYWxmLCAyIHBpZWNl cyBlYWNoOyBBNiwgNjo xOIX3aZKqIOjpxzXfuA TzYCLuQd1QXJEweFXAF ST4AS5sTAg8GNzoURGh J2AuC2ZmsvQdcCXiTYB rbmWqt1qdNYI9HDPtpV TduVIbFsZeYpfsMVB0I DJoOBkgZI5Hy3wjWIIu jPNlPVS4WNpqbFHnFKM iUPNtVPovCbCwV0JPHB WoRxUhDgkkHFMvWLm4N ZmgR3USPQGgQDR9GSp1 LIO6DbI2ZJn5CDKGFg0 gBOJ9GbL1YGK3CCU5DF D6KNjdjPEkXHhuUhKWc mlhbCBcXGZzIDEwIFxc LvBlQHzrpQReIB8swVm wbGFpblxiXGZzMjAgQj marHPiCS5RHCWnQQhaZ HVovKCSHIK9IT5uEFCF ClxsdHJwYXJcbGluMFx beW3sFB6LUTi5nzTuNW QgJ1DlHCXeIxQbH6qda rgfA7PbmMLpsAWxIVZb OlxiMFxjZjAgIEEgdGF uLCBoYWlyYmVhcmluZy idzH2wnshrejBhZRLqv 1vnJSY5S1ulhA7dFM1i SAC8dzxkGfLwYyeuaOV vSshlW75gMS7tFHD5G7 mvBAPjiB8foWitQUJoW pAtpU5rBOXtGGDdGKvj JVSvbgToNLWciddsI0J jlTSvoAHyUCGgi10jyM Loc8KfwI6jSLVvPAI1U YEoSqOvnBS1tJrsfCQu hwHiQensF47daF4bdHi mWKCaf6Ceb8AenOMaC5 ruMnOgVSdzWM8dqmkiw vDyGNEzXEfcs1FsFNOv DBApRWowlZQjVGK6wG0 bBGEdLKYgpGarDDa8ZP C9Zr2jfXWiUSTaoqRLZ C0AIl4tDQQraPOnRR6H T6DISTrUSfCJW0LPDgT MHLxgdCynewjqtW2wIS DtEAKoiPG4GGTwAXT3Z CgzIHBpZWNlcyBlYWNo KSBhbmQgQjYgKDIgcGl oK5PgMBrkikUiOKewRC ZcMUlcYCZpP97ty8YGu 1CoSQScr6rsmKofy0Fb dGVuZFxwYXJccGFyZFx coT8oEoOjy5dyfCk6AR vzgcV4TOVjjh5wkLiko P3jHHlfx7zfUUT8RJOa bXVsdDAgDQpccGxhaW5 qVpJlYmn8ZDkiCMBiZ1 TgA1KegiM8RZCdNJilW GZzMTYgDQp9 Disclaimer (test code = [id number] [id number]) fILUzEKRie1jmHGDrfO FuZzEwMzNcZnRuYmpcd BZgBBWfArJkr0uzu846 oPQdu9liQVCqBvU3zNS tOUQelSScA374CTJhQT wtl0dcq0GaDGEleUPhw 1C9DBZNsxykbZr7pLnt J62jk1C5UikrB4uxSVP xAZGvK4IjGO7vSTIcXx e4MYD5QUX4HMUzETIyA 2NuSP8sXNFouTAmGYq6 m2amaUqfVHQyUGF4e8b bEWdlvyFbRM4ycy8flA x7j8bcgpOuMPWoXMNns MMPYTOoM8EayFrvSi8r cKa7tGxpZvihASJ5Iep 9DG5ewr32xoe3zYbdTJ RosbknNoM4JZnuPXEqy dwjPMg2QNlcOCIxrOQ2 HTUrpCXwQ5UaZTOaGN6 ofrr0CJY4JJfhEYGwIj F5DWRheKKbEIOsgWszO Cyaq800DAZ3NoDiXU0h E5Pst0U1dA4acXKlHJO tnIKzWnBeOGEuvk8ltG AlUVkbn0EdSKM4vkI0c UCtoYRpXZZqTT01Xxyc v1NxSzmhGGJ6KXBcncG ap9Zwf7tbWmXvavWnC6 rtQ6ZcCSFbTBCcOASzC cInjnGdh2Pbp0WblZPh nUw1g2pzNRAjWLRzkIb qs7qwLIB9LGTtW6O2kJ Bby7iyWZfxLKExyES9q lK9BCQokPTuC0WnqB4l OSWuAY6xlxz0g1miNID 8XOopNZIzEvD4leF3XX BcaGVhZGVyeTcyMFxmb 908QUL8EsIoOVNyf6Ki C0QstNlwL84qlWpoR36 dWFYcpDkgkU5ehSweqC 5cZjBcZnMyNFxxbFxwb XEypxseTNlrcnV3MFba dkztJWDiPMyaM2qsWsJ cSXJyaWheODmpw2XqUA MwHBOoNitmmaR7NHQCm 66cKNQwi2ApIQCiwW4v vCXwPYepiaFykPK4UEj hdmUgYmVlbiBkZXZlbG 9kJRUsIT2nEPElfxPqr a6gzhFyKFLrGXIfZ2Gk cmlzdGljcyBkZXRlcm1 wrxPjBUY8GEUYWW2SMQ CnZJRhm11wPNVaoTcep R0dlPYqzxTdCPSzu3Ry nX3hpAOUDIBwT2ihHP4 aBGiik3UqzTLhiUXiuJ C3CTKqc6EuBnNjwfOnq OPcwPRvU4GoiDqaA1em PKKfFUWjwzFxbOIie0R xYLNemYX2bWXdNB8CAy XXu07fIXSpKXNZhiFxC UBvtLzffMV6gbR3gI4h LiBJZiBhcHBsaWNhYmx vCKHnw281ct0ucaO2HL OwEEDommata6TqOZMuN SOcaI46IYSkZTKigp0b mntrrRXcxvQfM8Oacqq 7lK8jXLXgRYdqGQWcDV ZzMjJcbGFuZzEwMzNca GljaFxmMVxkYmNoXGYx TItdC5ysUvAkDiWoYal wYXJ9 [facility] Glucose [id number] 12:33:39 Test Item Value Reference Range Interpretation Comments POC Glucose (test 104 mg/dL 70-99 H Capillary blood code = 35886-8) samples, e.g . obtained by fingerstick, jessie y have inaccurate resu lts in patients with decreased perip heral blood flow. Met hod description: Al l results are chioma sured using Electrochemistr y test methodology. Th e glucose in the sample mixes with the reagents on the test strip. The reac tion produces an thereas ctric current. The am ount of current prod uced is proportional to the glucose concentration i n the blood. PO Sample Type (test Venous code = 9554) Performing Lab (test MDA Main Main Ca mpus code = 54141) [facility] MD Moreno Cli nical Lab, [address] [place] [place], [facility] [place] [address]; Napping Machine Operator: Danielle Nguyen MD Lab Interpretation Abnormal (test code = 04255-3) MD MorenoUrine [id number] 21:55:15 Test Item Value Reference Range Interpretation Comments Final Report (test No growth code = 8488) Path Review - Urine The results have been (test code = 8483) reviewed and electronically signed by Pathologist:CHRISTIAN BERUMEN MD #[id number] MD [id number] 11:35:25 Test Item Value Reference Range Interpretation Comments Prolactin (test code 10.1 ng/mL 4.0-15.2 Results greater than = 6869) 4700.0 ng/mL ma y not be reliable due to matrix effect with ext ended dilution as it exceeds the manufacture r s recommended l imit. Caution should be exercised when interpreting cyr ch values and done in conjunction wit h clinical contex t. MD MorenoFSH [id number] 11:35:24 Test Item Value Reference Range Interpretation Comments FSH (test code = 9.4 See_Comment Female Foll icle Stimulating 5571) Hormone Referen ce Ranges: LOW HIGHFollicula r 3.5 12.5 Ovulation 4.7 21.5Luteal 1.7 7.7Postmenopaus e 25.8 134.8 [Automat ed message] The system [employer] generated this result tra nsmitted reference range : 1.5 - 12.4 mIU/mL. The ref erence range was not used to interpret this result as normal/abnormal . MD [id number] 11:35:23 Test Item Value Reference Range Interpretation Comments LH (test code = 6126) 10.0 See_Comment H Female Luteinizing Hormone Referen ce Ranges: LOW HIGHFollicular 2.4 12.6Ovulation 14.0 95.6Luteal 1.0 11.4Postmenopau se 7.7 58.5 [Automated mess age] The system [employer] generated this result transmitted ref erence range: 1.7 - 8. 6 mIU/mL. The ref erence range was not u sed to interpret this result as normal/abnor mal. Lab Interpretation Abnormal (test code = 83552-9) MD [id number] 11:22:42 Test Item Value Reference Range Interpretation Comments ACTH (test code = 48 pg/mL 7-63 Results gr eater than 1826 4643) pg/mL may not b e reliable due to matrix e ffect with extended diluti on as it exceeds the man ufacturer's recommended claros it. ACTH reference inter vals are established for the morning hours f rom 7-10 am. Due to the circadian rhythm of ACTH levels in plasma, the [facility] ple collection time must be noted. Caution should be exercised when interpreting cyr ch values and done in con junction with clinical c ontext. MD MorenoPotassium [id number] 11:05:12 Test Item Value Reference Range Interpretation Comments U Potassium (test code 9 mEq/L Vidya l range not = 7802) available for c ollections less than 24 ho urs in duration. MD MorenoChloride [id number] 11:02:33 Test Item Value Reference Range Interpretation Comments U Chloride (test code = 24 mEq/L Norm al range not 7709) available for c ollections less than 24 ho urs in duration. MD MorenoSodium [id number] 11:02:32 Test Item Value Reference Range Interpretation Comments U Sodium (test code = 35 mEq/L Normal range not available 7809) for collections less than 24 hours in dur ation. MD MorenoOsmolality [id number] 11:01:26 Test Item Value Reference Range Interpretation Comments U Osmolality (test code 178 See_Comment Urin nehal osmolality may = 7785) vary widely, de pending on the state of hydration. [place] om urine osmolality can range from 50 [...] result as normal/abnormal . MD MorenoUrinalysis with [id number] 10:53:10 Test Item Value Reference Range Interpretation [...] implementation of new instrumentation in the Main [place], allowing greater sensitivity of measurement. Urinalysis results reported by the [facility] using existing instrumentation, as well as Urinalysis testing performed manually or by backup methodology at the Main [place] will remain relatively unchanged. New reporting parameters and units will now be reported for all campuses. MD MorenoUrinalysis w/Microscopic if [id number] 10:45:23 Test Item Value Reference Range Interpretation [...] (test code = 7886) NEG NEG MD M[id number] 03:07:56 Test Item Value Reference Range Interpretation [...] mal. Lab Interpretation (test Abnormal code = 15865-7) MD [id number] 22:26:40 Test Item Value Reference Range Interpretation Comments LDH (test code = 195 U/L 135-225 Results gre ater than 1651 6111) U/L may not be reliable due to matrix effec t with extended diluti on as it exceeds the man ufacturer s recommended l imit. Caution should be exercised when interpreti ng such values and done in conjunction wit h clinical context. MD MorenoTqjwvlszIslvjq1476-64-08 22:21:57 Test Item Value Reference Range Interpretation Comments Lipase Lvl (test code = 6165) 22 U/L 13-60 MD MorenoPplpqkpbJbyvvpi2070-87-05 22:21:56 Test Item Value Reference Range Interpretation Comments Amylase Lvl (test code = 4806) 65 U/L 28-100 MD MorenoInfluenza A/B + COVID-19 Asymptomatic- [id number] 22:17:12 Test Item Value Reference Range Interpretation Comments COVID19 Not Detected Not Detected (SARS-CoV-2) (test code = 92973-1) Influenza A (test Not Detected Not Detected code = 07297-5) Influenza B (test Not Detected Not Detected code = 49469-9) COVID19 SARS Inpatient Indication (test Admission code = 77436) Inf AB+Cov19 See Note The odalis SARS- CoV-2 Comment (test & Influenza A/ B code = 53922) nucleic acid t est for use on the urszula s Leydi System is a mul tiplex real-time RT-PC R assay intended for the [...] sheet for patie nts provided by the molding machine operator ([employer]) can be rev iewed at: https://www.fda .gov/m edia/295226/yovani nloadA fact sheet for Health Care providers is provided by the molding machine operator ([employer]) and can be reviewed at: https://www.fda .gov/m edia/684276/yovani nload Influenza A and Influenza B neg [...] high-comple xity tests. The Microbiology Laboratory at [facility], CLIA Accreditation #[id number] and CAP Accreditation #[id number], verif ied the performance characteristics of this assay. Int ernal controls are us ed to monitor all sta ges of the test yaz Moreno
[2022-01-26] MEDS ORDERED: NA CHLORIDE 0.9% 1,000 ML ONE ×2 (09:10→09:31)
[2022-01-26 09:29] LABS: Absolute Lymphocytes (CBC) 0.6 K/uL (0.7-4.9); Hematocrit 37.3 % (39.6-49.0); Lymphocytes % 10.4 % (15.3-44.8); MPV 7.1 fL (7.6-11.3); RBC Red Blood Cell Count 5.01 M/uL (4.33-5.43)
[2022-01-26] MEDS ORDERED: CEFEPIME 1 GM/VIAL ONE (09:31)
[2022-01-26] MEDS ORDERED: NA CHLORIDE 0.9% 250 ML ONE (09:31)
[2022-01-26] MEDS ORDERED: VANCOMYCIN 1 GM/VIAL ONE (09:31)
[2022-01-26] MEDS ORDERED: NA CHLORIDE 0.9% 100 ML IV ONE (09:31)
[2022-01-26 09:36] LABS: Protime INR 1.59
[2022-01-26 09:45] LABS: Albumin 3.4 g/dL (3.4-5.0); Bilirubin Direct 0.5 mg/dL (0-0.2); Bilirubin Total 1.7 mg/dL (0.2-1.0); Potassium 4.2 mmol/L (3.5-5.1); Protein, Total 7.4 g/dL (6.4-8.2)
[2022-01-26 10:31] LABS: Urine Blood 3+ (Negative); Urine Glucose 1+ (Negative); Urine Protein 3+ (Negative); Urine Specific Gravity 1.015 (1.005-1.030)
--- NOTE | 2022-01-26 10:34 | ER ---
Nurse's Notes [facility] Name: Miguel Hogan Age: 86 yrs Sex: Male : 1935 Arrival Date: 01/26/2022 Time: 08:48 Bed 5 Private MD: Diagnosis: Other specified sepsis;Acute cystitis with hematuria Presentation: 01/26 08:52 Chief complaint: Patient states: Blood in urine that started last night. Complain of sm5 frequency and hard time to start urinating. Patient takes Eliquis. Coronavirus screen: Vaccine status: Patient reports receiving the 2nd dose of the covid vaccine. Client denies travel out of the [place] in the last 14 days. Ebola Screen: Patient denies travel to an Ebola-affected area in the 21 days before illness onset. Initial Sepsis Screen: Does the patient meet any 2 criteria? No. Patient's initial sepsis screen is negative. Does the patient have a suspected source of infection? No. Patient's initial sepsis screen is negative. Risk Assessment: Do you want to hurt yourself or someone else? Patient reports no desire to harm self or others. Onset of symptoms is unknown. 08:52 Method Of Arrival: Ambulatory 5 08:52 Acuity: ROSE 3 sm5 Triage Assessment: 08:57 General: Appears in no apparent distress. Behavior is calm, cooperative. Pain: Denies sm5 pain. Neuro: Level of Consciousness is awake, alert, obeys commands, Oriented to person, place, time, situation. Respiratory: Airway is patent Respiratory effort is even, unlabored, Respiratory pattern is regular, symmetrical. Historical: - Allergies: 08:55 Etodolac; sm5 - Home Meds: 08:55 Eliquis 2.5 mg Oral tab 1 tab 2 times per day [Active]; losartan-hydrochlorothiazide sm5 50-12.5 mg Oral tab 1 tab once daily [Active]; Lasix 20 mg Oral tab 1 tab once daily [Active]; - PMHx: 08:55 Hyperlipidemia; Hypertension; skin cancer; sm5 08:57 lung cancer; sm5 - Immunization history:: Adult Immunizations up to date. - Social history:: Smoking status: Patient/guardian denies using tobacco, but has a distant history of tobacco abuse, Patient/guardian denies using alcohol, street drugs, The patient lives with family. - Family history:: not pertinent. Screenin:58 Abuse screen: Denies threats or abuse. Denies injuries from another. Nutritional sm5 screening: No deficits noted. Tuberculosis screening: No symptoms or risk factors identified. 09:25 Fall Risk No fall in past 12 months (0 pts). No secondary diagnosis (0 pts). IV access vg1 (20 points). Ambulatory Aid- None/Bed Rest/Nurse Assist (0 pts). Gait- Normal/Bed Rest/Wheelchair (0 pts) Mental Status- Oriented to own ability (0 pts). Total Stafford Fall Scale indicates No Risk (0-24 pts). Assessment: 09:15 General: Appears in no apparent distress. comfortable, Behavior is calm, cooperative. vg1 Pain: Complains of pain in lower back Pain currently is 5 out of 10 on a pain scale. Pain began 2-3 days ago. Neuro: Level of Consciousness is awake, alert, obeys commands, Oriented to person, place, time, situation. Cardiovascular: Patient's skin is warm and dry. Respiratory: Airway is patent Respiratory effort is even, unlabored. GI: Abdomen is flat, non-distended, Abd is soft and non tender X 4 quads. : Reports burning with urination, urinary frequency, since 2-3 days ago blood in urine since last night. EENT: No signs and/or symptoms were reported regarding the EENT system. Derm: Skin is intact, Skin is pink, warm \T\ dry. Musculoskeletal: Circulation, motion, and sensation intact. 10:28 Reassessment: Patient appears in no apparent distress at this time. No changes from vg1 previously documented assessment. Patient and/or family updated on plan of care and expected duration. Pain level reassessed. Patient is alert, oriented x 3, equal unlabored respirations, skin warm/dry/pink. 11:30 Reassessment: Patient appears in no apparent distress at this time. Patient and/or vg1 family updated on plan of care and expected duration. Pain level reassessed. Patient is alert, oriented x 3, equal unlabored respirations, skin warm/dry/pink. Patient states feeling better. 12:49 Reassessment: Patient appears in no apparent distress at this time. No changes from vg1 previously documented assessment. Daughter at bedside. 14:49 Reassessment: Patient appears in no apparent distress at this time. Patient and/or vg1 family updated on plan of care and expected duration. Pain level reassessed. Patient is alert, oriented x 3, equal unlabored respirations, skin warm/dry/pink. pt given sandwich; daughter at bedside Patient denies pain at this time. Patient states feeling better. 15:21 Reassessment: attempted to call report, it is reported by Lucy that the receiving nurse ap3 is at lunch and will return my phone call. 16:04 Reassessment: report called to receiving nurse. ap3 16:12 Reassessment: Patient appears in no apparent distress at this time. Patient and/or vg1 family updated on plan of care and expected duration. Pain level reassessed. Patient is alert, oriented x 3, equal unlabored respirations, skin warm/dry/pink. Patient denies pain at this time. Patient states feeling better. Vital Signs: 08:52 BP 96 / 55; Pulse 66; Resp 18; Temp 97.9; Pulse Ox 100% on R/A; Weight 90.72 kg; Height 5 6 ft. 2 in. (187.96 cm); Pain 0/10; 09:48 BP 115 / 49; Pulse 44; Resp 24; Temp 96.6(O); Pulse Ox 97% on R/A; vg1 10:31 BP 126 / 78; Pulse 54; Pulse Ox 100% on R/A; ap3 11:56 BP 133 / 64; Pulse 61; Temp 97.8(O); Pulse Ox 97% on R/A; ap3 12:49 BP 150 / 62; Pulse 65; Resp 22; Pulse Ox 100% on R/A; vg1 13:30 BP 146 / 62; Pulse 62; Resp 20; Pulse Ox 99% on R/A; vg1 14:30 BP 156 / 71; Pulse 68; Resp 17; Pulse Ox 95% on R/A; vg1 16:00 BP 144 / 97; Pulse 71; Resp 17; Pulse Ox 98% on R/A; vg1 08:52 Body Mass Index 25.68 (90.72 kg, 187.96 cm) 5 ED Course: 08:48 Patient arrived in ED. ds1 08:55 Chidi Duke MD is Attending Physician. ma2 08:55 Triage completed. sm5 08:57 Arm band placed on right wrist. sm5 09:18 Inserted saline lock: 20 gauge in right forearm, using aseptic technique. Blood vg1 collected. 09:18 Initial lab(s) drawn, by me, sent to lab. First set of blood cultures drawn by me. vg1 09:22 Carmen Robbins RN is Primary Nurse. vg1 09:25 Patient has correct armband on for positive identification. Bed in low position. Call vg1 light in reach. Side rails up X 1. Adult w/ patient. 09:47 Inserted saline lock: 20 gauge in left forearm, using aseptic technique. ap3 09:47 EKG done, by ED staff, reviewed by Chidi Duke MD. vg1 10:07 CT Stone Protocol In Process Unspecified. EDMS 10:34 Torey Martins MD is Hospitalizing Provider. ma2 16:10 No provider procedures requiring assistance completed. Patient admitted, IV remains in ap3 place. Administered Medications: 09:23 Drug: NS 0.9% 1000 ml Route: IV; Rate: 1000 ml; Site: right forearm; ap3 10:35 Follow up: IV Status: Completed infusion; IV Intake: 1000ml vg1 09:47 Drug: NS 0.9% 1000 ml Route: IV; Rate: 1 bolus; Site: left forearm; ap3 11:52 Follow up: IV Status: Completed infusion; IV Intake: 1000ml vg1 09:47 Drug: vancoMYCIN 1 grams Route: IVPB; Infused Over: 2 hrs; Site: left forearm; ap3 11:51 Follow up: IV Status: Completed infusion; IV Intake: 250ml vg1 09:48 Drug: Cefepime 1 grams Route: IVPB; Rate: 200 ml/hr; Infused Over: 30 mins; Site: right ap3 forearm; 10:35 Follow up: IV Status: Completed infusion; IV Intake: 100ml vg1 Intake: 10:35 IV: 1000ml; Total: 1000ml. vg1 10:35 IV: 100ml; Total: 1100ml. vg1 11:51 IV: 250ml; Total: 1350ml. vg1 11:52 IV: 1000ml; Total: 2350ml. vg1 Outcome: 10:34 Decision to Hospitalize by Provider. ma2 16:10 Admitted to Med/surg accompanied by tech, via wheelchair, room 208, with chart. ap3 16:10 Condition: good 16:13 Patient left the ED. vg1 Signatures: Dispatcher [employer] EDMS Yamileth Khalil ds1 Chidi Duke MD MD ma2 Saige Crabtree RN RN ap3 Carmen Robbins RN RN vg1 Maria M Azevedo RN RN sm5 Corrections: (The following items were deleted from the chart) 09:50 09:48 BP 115 / 49; Pulse 44bpm; Resp 24bpm; Pulse Ox 95% RA; vg1 vg1
--- NOTE | 2022-01-26 10:34 | EDPHYS ---
Physician Documentation [facility] Name: Miguel Hogan Age: 86 yrs Sex: Male : 1935 Arrival Date: 01/26/2022 Time: 08:48 Bed 5 Private MD: ED Physician Chidi Duke HPI: 01/26 09:14 This 86 yrs old Male presents to ER via Ambulatory with complaints of Blood in Urine. ma2 09:14 Patient has hematuria frequency suprapubic abdominal pain and urinary burning when he ma2 urinates, this been going on for 1 day, patient states he had prostate inflammation in the past and UTIs in the past, patient takes Eliquis which he took last night and this morning as well. Patient denies abdominal pain vomiting or diarrhea denies chest pain shortness of breath denies flank pain. Of note he had kidney stones in the past. Historical: - Allergies: 08:55 Etodolac; sm5 - Home Meds: 08:55 Eliquis 2.5 mg Oral tab 1 tab 2 times per day [Active]; losartan-hydrochlorothiazide sm5 50-12.5 mg Oral tab 1 tab once daily [Active]; Lasix 20 mg Oral tab 1 tab once daily [Active]; - PMHx: 08:55 Hyperlipidemia; Hypertension; skin cancer; sm5 08:57 lung cancer; sm5 - Immunization history:: Adult Immunizations up to date. - Social history:: Smoking status: Patient/guardian denies using tobacco, but has a distant history of tobacco abuse, Patient/guardian denies using alcohol, street drugs, The patient lives with family. - Family history:: not pertinent. ROS: 09:14 Constitutional: Negative for fever, chills, and weight loss. ma2 09:14 All other systems are negative. Exam: 09:14 Constitutional: This is a well developed, well nourished patient who is awake, alert, ma2 and in no acute distress. Head/Face: Normocephalic, atraumatic. Eyes: Pupils equal round and reactive to light, extra-ocular motions intact. Lids and lashes normal. Conjunctiva and sclera are non-icteric and not injected. Cornea within normal limits. Periorbital areas with no swelling, redness, or edema. ENT: Nares patent. No nasal discharge, no septal abnormalities noted. Tympanic membranes are normal and external auditory canals are clear. Oropharynx with no redness, swelling, or masses, exudates, or evidence of obstruction, uvula midline. Mucous membranes moist. Neck: Trachea midline, no thyromegaly or masses palpated, and no cervical lymphadenopathy. Supple, full range of motion without nuchal rigidity, or vertebral point tenderness. No Meningismus. Chest/axilla: Normal chest wall appearance and motion. Nontender with no deformity. No lesions are appreciated. Cardiovascular: Regular rate and rhythm with a normal S1 and S2. No gallops, murmurs, or rubs. Normal PMI, no JVD. No pulse deficits. Respiratory: Lungs have equal breath sounds bilaterally, clear to auscultation and percussion. No rales, rhonchi or wheezes noted. No increased work of breathing, no retractions or nasal flaring. Abdomen/GI: Soft, non-tender, with normal bowel sounds. No distension or tympany. No guarding or rebound. No evidence of tenderness throughout. Skin: Warm, dry with normal turgor. Normal color with no rashes, no lesions, and no evidence of cellulitis. MS/ Extremity: Pulses equal, no cyanosis. Neurovascular intact. Full, normal range of motion. Neuro: Awake and alert, GCS 15, oriented to person, place, time, and situation. Cranial nerves II-XII grossly intact. Motor strength 5/5 in all extremities. Sensory grossly intact. Cerebellar exam normal. Normal gait. Vital Signs: 08:52 BP 96 / 55; Pulse 66; Resp 18; Temp 97.9; Pulse Ox 100% on R/A; Weight 90.72 kg; Height sm5 6 ft. 2 in. (187.96 cm); Pain 0/10; 09:48 BP 115 / 49; Pulse 44; Resp 24; Temp 96.6(O); Pulse Ox 97% on R/A; vg1 10:31 BP 126 / 78; Pulse 54; Pulse Ox 100% on R/A; ap3 11:56 BP 133 / 64; Pulse 61; Temp 97.8(O); Pulse Ox 97% on R/A; ap3 12:49 BP 150 / 62; Pulse 65; Resp 22; Pulse Ox 100% on R/A; vg1 13:30 BP 146 / 62; Pulse 62; Resp 20; Pulse Ox 99% on R/A; vg1 14:30 BP 156 / 71; Pulse 68; Resp 17; Pulse Ox 95% on R/A; vg1 16:00 BP 144 / 97; Pulse 71; Resp 17; Pulse Ox 98% on R/A; vg1 08:52 Body Mass Index 25.68 (90.72 kg, 187.96 cm) [facility] MDM: 10:33 Differential diagnosis: UTI, urinary retention, prostatitis, urethritis. Data reviewed: [facility] vital signs, nurses notes. Counseling: I had a detailed discussion with the patient and/or guardian regarding: the historical points, exam findings, and any diagnostic results supporting the discharge/admit diagnosis, the presence of at least one elevated blood pressure reading (>120/80) during this emergency department visit, the need for outpatient follow up. Response to treatment: the patient's symptoms have mildly improved after treatment. 10:34 Patient medically screened. [facility] 01/26 08:57 Order name: BMP; Complete Time: 10:15 [facility] 01/26 08:57 Order name: CBC with Diff; Complete Time: 10:15 [facility] 01/26 08:57 Order name: Hepatic Function; Complete Time: 10:15 [facility] 01/26 08:57 Order name: Lipase; Complete Time: 10:15 va01/26 08:57 Order name: PT-INR; Complete Time: 10:15 va01/26 08:57 Order name: Ptt, Activated; Complete Time: 10:15 [facility] 01/26 09:13 Order name: Blood Culture Adult (2) va01/26 09:13 Order name: Lactate; Complete Time: 10:15 va01/26 09:13 Order name: Urine Culture [facility] 01/26 09:15 Order name: SARS-COV-2 RT PCR (Document "Date of Onset" if Symptomatic); Complete Time: [facility] 11:48 01/26 10:31 Order name: Urine Dipstick-Ancillary; Complete Time: 10:32 EDMN 01/26 10:41 Order name: Basic Metabolic Panel [facility] 01/26 10:41 Order name: Basic Metabolic Panel [facility] 01/26 10:41 Order name: CBC with Automated Diff [facility] 01/26 08:57 Order name: CT Stone Protocol; Complete Time: 11:48 [facility] 01/26 08:57 Order name: IV Saline Lock; Complete Time: 09:47 [facility] 01/26 08:57 Order name: Labs collected and sent; Complete Time: 09:47 [facility] 01/26 08:57 Order name: NPO; Complete Time: 09:05 [facility] 01/26 10:41 Order name: NPO EDMS 01/26 10:41 Order name: CBC with Automated Diff EDMS Administered Medications: 09:23 Drug: NS 0.9% 1000 ml Route: IV; Rate: 1000 ml; Site: right forearm; ap3 10:35 Follow up: IV Status: Completed infusion; IV Intake: 1000ml vg1 09:47 Drug: NS 0.9% 1000 ml Route: IV; Rate: 1 bolus; Site: left forearm; ap3 11:52 Follow up: IV Status: Completed infusion; IV Intake: 1000ml vg1 09:47 Drug: vancoMYCIN 1 grams Route: IVPB; Infused Over: 2 hrs; Site: left forearm; ap3 11:51 Follow up: IV Status: Completed infusion; IV Intake: 250ml vg1 09:48 Drug: Cefepime 1 grams Route: IVPB; Rate: 200 ml/hr; Infused Over: 30 mins; Site: right ap3 forearm; 10:35 Follow up: IV Status: Completed infusion; IV Intake: 100ml vg1 Disposition Summary: 01/26/22 10:34 Hospitalization Ordered Hospitalization Status: Inpatient Admission ma2 Provider: Torey Martins [facility] ma2 Condition: Stable ma2 Problem: new ma2 Symptoms: are unchanged ma2 Bed/Room Type: Standard [facility] Room Assignment: [facility](01/26/22 15:06) eb Diagnosis - Other specified sepsis ma2 - Acute cystitis with hematuria ma2 Forms: - Medication Reconciliation Form ma2 - SBAR form va2 Signatures: Dispatcher [employer] EDMS Chidi Duke MD MD ma2 Saige Crabtree RN RN ap3 Nicolette Rodriguez Sarah, RN RN sm5 Carmen Robbins RN vg1 Corrections: (The following items were deleted from the chart) 15:06 10:34 ma2 eb
--- NOTE | 2022-01-26 11:01 | RAD REPORT ---
EXAM DESCRIPTION: CT - Stone Protocol - 01/26/2022 10:05 am CLINICAL HISTORY: hematuria, abdominal pain COMPARISON: Abdomen Pelvis W Contrast dated 04/24/2017; Chest For Pe Angio dated 12/30/2021 TECHNIQUE: Axial 3 mm thick images were obtained without oral or IV contrast. The [id number] span s the entirety of the system including uppermost abdomen and lung bases. All CT scans are performed using dose optimization technique as appropriate and may include automated exposure control or mA/KV adjustment according to patient size. FINDINGS: Small loculated pleural effusion and pleural thickening in the left base are chronic findi ngs. Left hemidiaphragm elevation is present. There is cardiomegaly without pericardial effusion. No hydronephrosis is present and no obstructing ureteral calculi. No suspicious renal masses. Isodens e masses and pyelonephritis are not excluded on a stone protocol CT scan. Patient has bilateral thin wall fluid attenuation cystic masses in each kidney. Largest on the right is 8.7 cm lower pole the ri ght kidney. Largest on the left is 7.5 centimeter also in the lower pole. All of the renal cysts have shown growth since the 2017 CT study. No suspicious characteristics on noncontrast imaging. No signi ficant adrenal finding. Urinary bladder shows a 3 centimeter rounded mass along the right lateral wal l. No mineralization is present. Remainder of the bladder wall is grossly unremarkable. Assessment is limited in the contracted state. Prostate gland and seminal vesicles within normal limits for patien t age. Imaged portions of the liver, spleen and pancreas show no suspicious findings on non-contrast imaging . Normal-sized gallbladder is packed with numerous less than 5 mm sized gallstones. No acute gallblad chi process seen. No suspicion for duct stone or biliary tree dilatation. No dilated large or small bowel seen. Moderate stool volume fills the colon. A colon mass or area of wall thickening not seen. No appendicitis. Left-sided diverticulosis is present. No hernia, mass or bulky lymphadenopathy noted. No free air, free fluid or inflammatory stranding. No significant bony abnormality. Multilevel disc and bone degenerative changes are present. Patient has upper abdominal aortic stent spanning the aorta from celiac artery level to just below th e renal arteries. Infrarenal abdominal aortic aneurysm is present measuring 4.7 cm AP x 4.1 cm TR thi s is not substantially different from 2017. Dense mural thrombus is present. The more central lucent areas believed be patent lumen. Standing is in place from the distal abdominal aorta into the iliac v asculature. The iliac arteries are dilated compared to 2017. The stent extends to the outer wall. The re is no fluid or mass around the aortoiliac vasculature. IMPRESSION: Approximately 3 centimeter mass in the lateral wall of the urinary bladder suspicious fo r a primary bladder malignancy. No hydronephrosis or obstructing calculus. Multiple renal cysts are present enlarged from 2017 study. Isodense masses and pyelonephritis are not excluded on stone protocol technique.Renal cysts are not f ully assessed in the absence of contrast. Infrarenal abdominal aortic aneurysm not significantly different from 2017. Patient has stenting of t he upper abdomen and aortoiliac stenting involving the lower abdomen. The stent material does not ful ly span the aneurysm. Vascular assessment is limited in the absence of contrast.
--- NOTE | 2022-01-26 12:24 | HP ---
Date of Admission: 01/26/2022 Chief Complaint: Blood in urine. History Of Present Illness: This is an 86-year-old very pleasant male patient, who started to have some urinary frequency, urgency, some hesitancy and burning on urination for last 3 to 4 days. As of last night, he started to notice some blood in the urine, so early this morning he came to emergency room. After he was evaluated in ER, he was admitted to the hospital. When he first arrived to emergency room, his blood pressure was low which was 96/55 and after appropriate sepsis workup was done, he was given IV fluid per sepsis protocol and his blood pressure has improved and he is feeling much better. Empiric IV antibiotics were given and the patient was admitted to the hospital. I saw him in emergency room. He denies any shortness of breath. No nausea. No vomiting. No diarrhea. Allergies: TO ETODOLAC AND DILTIAZEM. Medications: List reviewed. Review of Systems: Genitourinary: As mentioned above. Psychiatry: Significant for chronic anxiety problem. All other systems reviewed and negative. Past Medical History: Significant for hypertension, carotid artery stenosis for which he had surgery in the past, benign prostatic hypertrophy, gastroesophageal reflux disease, diverticulosis, hyperlipidemia, type 2 diabetes mellitus, chronic kidney disease stage 3, asbestosis, allergic rhinitis. Past Surgical History: Knee replacement, carotid artery surgery for carotid artery stenosis. Family History: Father had myocardial infarction. Mother had diabetes. Social History: Prior history of smoking, not at present time. Use of alcohol negative. Physical Examination: Vital Signs: When he first came to emergency room; blood pressure was 96/55, pulse 66, respiratory rate 18, temperature 97.9, oxygen saturation 100%. Weight 90.72 kg, height 6 feet 2 inches. General: Awake, alert, oriented, not in distress. HEENT: Head atraumatic, normocephalic. Conjunctivae nonerythematous. Sclerae white. Mouth, no thrush or edema noted. Ears/Nose, no mass, lesion, discharge noted. Neck: Supple. No JVD, lymph nodes, bruit, thyromegaly noted. Lungs: Bilateral good equal air entry. Clear to auscultation. No rhonchi. No rales. Heart: Normal heart sounds, no murmur or gallop. Abdomen: Soft, bowel sounds normal. No guarding, rigidity, tenderness, mass, hepatosplenomegaly, distention, or bruit noted. Extremities: Show bilateral trace leg edema. Skin: No rash, ulcer, cellulitis. Lymphatics: No lymph node enlargement in neck, supraclavicular, infraclavicular region. Neuro: No focal neurological deficit. Chest: Unremarkable. External Genitalia: Deferred. Rectal: Deferred. Laboratory Data: White count 5.6, hemoglobin 11.6, platelets 233. Sodium 134, potassium 4.2, chloride 100, bicarb 29, BUN 40, creatinine 1.46, glucose 145, total bilirubin 1.7, direct bilirubin 0.5, AST 27, ALT 48, alkaline phosphatase 109, lipase 108. Urinalysis; 3+ blood, positive for nitrite, 3+ esterase, 3+ protein. CAT scan of abdomen done in the emergency room, shows 3 cm mass in lateral wall of urinary bladder, multiple renal cysts, infrarenal abdominal aortic aneurysm with stent above and below this aneurysm. Impression: 1. Urinary tract infection. 2. Rule out sepsis. 3. Anemia, unspecified. 4. Chronic kidney disease, stage 3A. 5. Hypertension. 6. Hyperlipidemia. 7. Type 2 diabetes mellitus. 8. Benign prostatic hypertrophy. 9. Carotid artery stenosis. 10. Gastroesophageal reflux disease. 11. Diverticulosis. 12. Bladder tumor, rule out cancer. 13. Abdominal aortic aneurysm. Plan: Admit the patient to hospital for further evaluation and management of this problem. The patient is appropriate for inpatient and is expected to spend 2 midnights in hospital. We will go ahead and continue IV fluid, continue empiric antibiotics, follow up on culture results and depending on the culture results, we will decide about culture specific antibiotic that we can possibly discharge him to go home with. Possible discharge to go home day after tomorrow depending on culture results. Meanwhile, we will continue home medications per order. Ambulation was encouraged and he actually has appointment to see Dr. Sewell for removal of earwax and this is scheduled day after tomorrow and he will cancel that appointment and postpone it because there is good possibility he may not be able to get out of the hospital in timely manner to keep that appointment. In the emergency room waiting area, I did communicate with the patient's son and daughter regarding all the details and plan of treatment. Details were discussed with the patient as well. Patient will be asked to follow up with MD Moreno upon discharge for bladder tumor and Dr. Kohli for abdominal aortic aneurysm. We will see him tomorrow for followup. NICO/BARTOLO Voice ID: [id number]
[2022-01-26 18:47] VITALS: O2SAT 100; BMI 25.7
[2022-01-26] MEDS: D5 0.45 NS 1,000 ML IV SCH (19:01)
[2022-01-26] MEDS: ALPRAZOLAM 1 MG TABLET PO SCH (20:43)
[2022-01-26] MEDS: CEFEPIME 1 GM in NA CHLORIDE 0.9% 100 ML IV SCH (20:44)
[2022-01-26] MEDS: ATORVASTATIN 20 MG TAB PO SCH (20:44)
[2022-01-26] MEDS ORDERED: carvediloL 12.5 MG TAB PO SCH (21:00)
[2022-01-27] MEDS: D5 0.45 NS 1,000 ML IV SCH (00:20)
[2022-01-27 06:01] LABS: Absolute Lymphocytes (CBC) 0.8 K/uL (0.7-4.9); Hematocrit 31.5 % (39.6-49.0); Lymphocytes % 14.8 % (15.3-44.8); MPV 7.1 fL (7.6-11.3); RBC Red Blood Cell Count 4.19 M/uL (4.33-5.43)
[2022-01-27 06:19] LABS: Potassium 3.8 mmol/L (3.5-5.1)
[2022-01-27] MEDS ORDERED: NA CHLORIDE 0.9% 100 ML ONE (07:43)
[2022-01-27] MEDS ORDERED: CEFEPIME 1 GM/VIAL ONE (07:54)
[2022-01-27] MEDS: LOSARTAN POTASSIUM 50 MG TABLET PO SCH (08:42)
[2022-01-27] MEDS: hydroCHLOROthiazide 12.5 MG CAP PO SCH (08:42)
[2022-01-27] MEDS: FINASTERIDE 5 MG TAB PO SCH (08:43)
[2022-01-27] MEDS: FUROSEMIDE 20 MG TABLET PO SCH (08:43)
[2022-01-27] MEDS: carvediloL 12.5 MG TAB PO SCH ×2 (08:44→20:44)
[2022-01-27] MEDS: CEFEPIME 1 GM in NA CHLORIDE 0.9% 100 ML IV SCH ×2 (08:46→20:42)
[2022-01-27] MEDS ORDERED: hydroCHLOROthiazide 12.5 MG CAP PO SCH (09:00)
[2022-01-27] MEDS: TRELEGY ELLIPTA IH SCH (09:00)
[2022-01-27] MEDS ORDERED: LOSARTAN POTASSIUM 50 MG TABLET PO SCH (09:00)
[2022-01-27] MEDS: ACETAMINOPHEN 500 MG TAB PO PRN ×2 (09:39→22:43)
[2022-01-27] MEDS: FLUTICASONE 50MCG NASAL SPRAY NAS SCH (09:39)
[2022-01-27] MEDS: ATORVASTATIN 20 MG TAB PO SCH (20:43)
[2022-01-27] MEDS: ALPRAZOLAM 1 MG TABLET PO SCH (22:44)
--- NOTE | 2022-01-28 00:06 | PN ---
Date of Progress Note: 01/27/2022 Subjective: The patient was seen this morning for followup. No new complaints or problems reported by patient, lying in bed, not in distress. Objective: Vital Signs: Reviewed. HEENT: Unremarkable. Lungs: Clear to auscultation. Heart: Heart sounds normal. Abdomen: Soft, bowel sounds normal. No guarding, rigidity, tenderness, distention. Extremities: No leg edema. Laboratory Data: White count 5.3, hemoglobin 10, platelets 188. Sodium 137, potassium 3.8, chloride 106, bicarb 28, BUN 12, creatinine 0.98, glucose 105. Urine culture and blood culture pending. Impression: 1.Urinary tract infection. 2.Hematuria. 3.Bladder tumor. Plan: We will go ahead and continue current antibiotic, follow up on culture results. Hopefully by tomorrow we should have report back to make a decision if we can discharge to go home with appropriat e oral antibiotics or not. He has not had any hematuria today and considering presence of bladder tu mor and gross hematuria, risk of anticoagulation therapy is higher than the benefit, so we will not a dvise him to take any Eliquis upon discharge and he was made aware of that. I will see him in the mo rning. NICO/MODL Voice ID: [id number] Report ID: [id number]
[2022-01-28] MEDS: LOSARTAN POTASSIUM 50 MG TABLET PO SCH (09:00)
[2022-01-28] MEDS: carvediloL 12.5 MG TAB PO SCH (09:00)
[2022-01-28] MEDS: hydroCHLOROthiazide 12.5 MG CAP PO SCH (09:00)
[2022-01-28] MEDS: FLUTICASONE 50MCG NASAL SPRAY NAS SCH (09:00)
[2022-01-28] MEDS: TRELEGY ELLIPTA IH SCH (09:00)
[2022-01-28] MEDS: CEFEPIME 1 GM in NA CHLORIDE 0.9% 100 ML IV SCH (09:00)
[2022-01-28] MEDS: FUROSEMIDE 20 MG TABLET PO SCH (10:09)
[2022-01-28] MEDS: FINASTERIDE 5 MG TAB PO SCH (10:10)
[2022-01-28 10:11] VITALS: BP 113/56
[2022-01-28 10:29] VITALS: TEMP 97.9
--- NOTE | 2022-01-29 08:39 | DS ---
Date of Discharge: 01/28/2022 Disposition: Discharged to go home. Physical Examination: HEENT: Unremarkable. Lungs: Clear to auscultation. Heart: Sounds normal. Abdomen: Soft. Bowel sounds normal. No guarding, rigidity, tenderness, distention. Extremities: No leg edema. Discharge Medications And Instructions: 1.Followup at my office on 02/03/2022. 2.The patient to check blood pressure before taking carvedilol, losartan/HCTZ, and furosemide and ho ld this medication dose if systolic blood pressure less than 130. 3.Discontinue Eliquis. 4.Follow up with MD Moreno for appointment. 5.Follow up with Dr. Kohli next month. Laboratory Data: Upon admission; white count 5.6, hemoglobin 11.6 platelets 233 and yesterday white count 5.3, hemoglobin 10, platelets 188. Upon admission; sodium 134, potassium 4.2, chloride 100, bi carb 29, BUN 40, creatinine 1.46, glucose 145, total bilirubin 1.7. Liver function tests otherwise u nremarkable. Lipase 108. Yesterday; sodium 137, potassium 3.8, chloride 106, bicarb 28, BUN 28, cre atinine 0.98, glucose 105. Urine culture and blood culture remained negative. Hospital Course: An 86-year-old pleasant male patient, came into emergency room with complaints of b lood in urine. Please see dictated H and P for more information. After the patient came into emerge ncy room, he was evaluated and admitted to the hospital. His CAT scan of abdomen done in the emergen cy room shows 3 cm mass in the lateral wall of urinary bladder, multiple renal cysts, infrarenal abdo anju aortic aneurysm with stent above and below the aneurysm site. His urinalysis was positive for 3+ blood, positive for nitrite, 3+ esterase, and 3+ protein. Urine culture and blood culture remaine d negative. This is an 86-year-old male patient admitted to the hospital with blood in urine. After he was evalu ated in the ER, he was admitted to the hospital. Initial urinalysis was indicating possibility of ur inary tract infection, so he was started on empiric antibiotics. Finally today, we got urine culture and blood culture and all the cultures remained negative, so there was no need for ongoing antibioti cs. His CAT scan has shown 3 cm bladder mass and this could be very likely underlying source of pain less hematuria that he came in with. He has not had any fever during this hospitalization. He does not have any dysuria and has not had any recurrence of hematuria. He takes Eliquis on outpatient bas is, which obviously was discontinued and he was instructed not to restart Eliquis upon discharge. He has appointment to go to [facility] Moreno in next week to 2 weeks and he will keep that appointment and chase villasenor up at my office next week as well. The patient was given CAT scan results to take it with him to [facility] and he was also given his CD to take it so MD Moreno can review these CAT scan films . 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 Kohli and the patient will follow up him next month. Final Diagnoses: 1.Gross hematuria. 2.Urinary tract infection. 3.Anemia, unspecified. 4.Abdominal aortic aneurysm. 5.Chronic kidney disease, stage 3A. 6.Bladder tumor. 7.Hypertension. 8.Hyperlipidemia. 9.Type 2 diabetes mellitus. 10.Benign prostatic hypertrophy. 11.Carotid artery stenosis. 12.Gastroesophageal reflux disease. 13.Diverticulosis. NICO/MODL Voice ID: [id number] Report ID: [id number]
== END 2022-01-28 11:17 | disposition home or self-care (01) | DRG 690 ==
LOC: ER 08:45 → ERHOLD 10:37 → 2ND 16:04
PROVIDERS: ADMIT Internal Medicine; ATTEND Internal Medicine
DX: N39.0 Urinary tract infection, site not specified (principal); R31.0 Gross hematuria; I12.9 Hypertensive chronic kidney disease with stage 1 through stage 4 chronic kidney disease, or unspecified chronic kidney disease; E11.22 Type 2 diabetes mellitus with diabetic chronic kidney disease; N18.31 Chronic kidney disease, stage 3a; D64.9 Anemia, unspecified; I71.4 Abdominal aortic aneurysm, without rupture; D49.4 Neoplasm of unspecified behavior of bladder; E78.5 Hyperlipidemia, unspecified; N40.0 Benign prostatic hyperplasia without lower urinary tract symptoms; I65.29 Occlusion and stenosis of unspecified carotid artery; K21.9 Gastro-esophageal reflux disease without esophagitis; K57.90 Diverticulosis of intestine, part unspecified, without perforation or abscess without bleeding; F41.9 Anxiety disorder, unspecified; N28.1 Cyst of kidney, acquired; J61 Pneumoconiosis due to asbestos and other mineral fibers; J30.9 Allergic rhinitis, unspecified; Z20.822 Contact with and (suspected) exposure to COVID-19; Z79.01 Long term (current) use of anticoagulants; Z79.899 Other long term (current) drug therapy; Z88.8 Allergy status to other drugs, medicaments and biological substances; Z87.891 Personal history of nicotine dependence; Z85.828 Personal history of other malignant neoplasm of skin; Z85.118 Personal history of other malignant neoplasm of bronchus and lung; Z96.659 Presence of unspecified artificial knee joint; Z82.49 Family history of ischemic heart disease and other diseases of the circulatory system; Z83.3 Family history of diabetes mellitus
CPT/HCPCS: 36415; 74176; 76377; 80048; 80076; 81003; 83605; 83690; 85025; 85610; 85730; 87040; 87086; 87088; 93005; 99285; J0692; J3370; J7030; J7050; J7799; U0003

== ENCOUNTER 2022-05-24 15:02 | Inpatient (IN) | payer OTHER ==
--- OUTSIDE RECORDS SUMMARY | 2022-05-24 15:09 | XMS REPORT | Clinical Summary ---
:1935 Author Organization [facility] Address [address] [place] [address] Care Team Providers Name Role Phone Leonard Giraldo MD Primary Care Provider Torey Martins MD Unavailable Torey Martins MD Unavailable Leonard Giraldo MD Unavailable Claudia Stein MD Unavailable Allergies Active Allergy Reactions Severity Noted Date Comments Etodolac Rash Low 06/16/2016 Medications Medication Sig Dispensed Refills Start End Status Date Date atorvastatin (LIPITOR) Take 40 mg by 0 Active 40 mg tablet mouth at bedtime. finasteride (PROSCAR) Take 5 mg by 0 Active 5 mg tablet mouth daily. fluticasone propionate Inhale 2 0 Active (FLONASE) 50 mcg/spray sprays into nasal spray each nostril daily. Trelegy Ellipta 1 PUFF BY 0 03/19/20 Acti ve 100-62.5-25 mcg dsdv MOUTH DAILY, 20 RINSE MOUTH WITH WATER AFTER USE furosemide (LASIX) 20 Take 1 tablet 0 10/23/19 Active mg tablet by mouth every 21 morning. carvedilol (COREG) 12.5 mg twice 0 08/08/20 Active 12.5 mg tablet daily. 21 methylPREDNISolone Take as 21 tablet 0 11/19/19 A ctive (Medrol, Bob,) 4 mg directed 22 tabletIndications: (Directions on Squamous cell blister pack) carcinoma, NOS of lower lobe, lung <Left> cholecalciferol, Take 1 tablet 0 Active vitamin D3, (VITAMIN by mouth D3 ORAL) daily. hyoscyamine sulfate Place 1 tablet 30 tablet 8 03/31/20 Active (ANASPAZ) 0.125 mg (0.125 mg) 22 disintegrating under the tabletIndications: tongue every 6 Bladder cancer (six) hours as needed (bladder spasms). apixaban (ELIQUIS) 2.5 Take 1 tablet 0 04/14/20 Active mg tabletIndications: (2.5 mg) by 22 Hyposmolality and/or mouth every 12 hyponatremia (twelve) hours. sodium chloride Apply 1 spray 15 mL 0 04/08/20 Active (OCEAN) 0.65% nasal to each nare 22 sprayIndications: every 6 (six) Hyposmolality and/or hours. hyponatremia amoxicillin-clavulanat Take 1 tablet 6 tablet 0 05/02/20 Active e (Augmentin) 500 (500 mg) by 22 mg-125 mg per mouth once a tabletIndications: week. Take one Bladder cancer pill 6 hours after each weekly BCG instillation. apixaban (ELIQUIS) 2.5 Take 2.5 mg by 0 Discontinued mg tablet mouth twice 022 (Stop Ta laci at daily. Discharge) ALPRAZolam (XANAX) 1 Take 1 tablet 0 10/16/1904/08 Discontinued mg tablet by mouth 022 (Stop Taki ng at nightly as Discharge ) needed for sleep. carvedilol (COREG) 25 Take 1 tablet 0 09/19/2009/042 Discontinued mg tablet by mouth twice 20 021 (Not daily. Applicable ) mupirocin (BACTROBAN) Apply 22 g 1 03/20/20 Discontinued 2% topically to (Discon tinued ointmentIndications: affected by another Basal cell carcinoma - area(s) twice clinician) primary daily. losartan-hydrochloroth Take 1 tablet 0 02/03 Discontinued iazide (HYZAAR) 100-25 by mouth 022 (Stop Taking at mg per daily. Discharge) tabletIndications: hypertension azithromycin 0 08/15/20 Discont inued (ZITHROMAX) 250 mg ( Not tablet Applicable ) mupirocin (BACTROBAN) Apply 22 g 1 09/30/20 Discontinued 2% topically to (Discon tinued ointmentIndications: affected by another Squamous cell area(s) twice cl inician) carcinoma of scalp daily. cephalexin (KEFLEX) Take 1 capsule 20 capsule 1 09/30/20/03/06 500 mg (500 mg) by capsuleIndications: mouth twice Squamous cell daily for 10 carcinoma of scalp days. benzonatate (TESSALON) Take 1 capsule 0 12/05/19 Discontinued 100 mg capsule by mouth 4 (Not (four) times a Appli cable) day as needed for cough. ipratropium (ATROVENT) 0 02/13/20 Discontinued 42 mcg (0.06 %) nasal (Not spray Applicable ) hyoscyamine sulfate Dissolve 1 20 tablet 1 02/20/20 Discontinued (ANASPAZ) 0.125 mg tablet (0.125 22 022 (Reorder) disintegrating mg) on the tabletIndications: tongue every 4 Mass of urinary (four) hours bladder, Painful as needed for bladder spasm cramping (bladder spasms, penile pain) for up to 7 days. docusate sodium Take 1 capsule 60 capsule 0 02/21/20 (Colace) 100 mg (100 mg) by capsuleIndications: mouth twice Mass of urinary daily for 30 bladder days. tolterodine (Detrol Take 1 capsule 30 capsule 0 02/22/2003/06 Discontinued LA) 4 mg 24 hr (4 mg) by (Stop Taking at capsuleIndications: mouth daily. Discharge) Mass of urinary bladder hyoscyamine sulfate Dissolve 1 20 tablet 1 02/22/20 (ANASPAZ) 0.125 mg tablet (0.125 22 022 disintegrating mg) on the tabletIndications: tongue every 4 Mass of urinary (four) hours bladder, Painful as needed for bladder spasm cramping (bladder spasms, penile pain) for up to 7 days. Eliquis 2.5 mg tablet Take 1 tablet 0 03/25/20/11 11/ Discontinued by mouth twice 22 022 (Stop Taking at daily. Discharge) levoFLOXacin Take 1 tablet 500 tablet 0 03/27/20 Di scontinued (LEVAQUIN) 500 mg (500 mg) by 22 022 (Error) tabletIndications: mouth daily. Bladder cancer Start the day before surgery levoFLOXacin Take 1 tablet 3 tablet 0 03/28/20 Dis continued (LEVAQUIN) 500 mg (500 mg) by 22 022 (Stop Taking at tabletIndications: mouth daily. Discharge) Bladder cancer Begin day before surgery apixaban (ELIQUIS) 2.5 Take 2.5 mg by 0 Discontinued mg tablet mouth. 022 (Reorder) cefdinir (OMNICEF) 300 Take 1 capsule 6 capsule 0 04/14/20 mg capsuleIndications: (300 mg) by 22 022 Hyposmolality and/or mouth twice hyponatremia daily for 3 days. Start taking the day before dan gets removed/urolog y appointment losartan (COZAAR) 100 Take 1 tablet 30 tablet 0 04/09/20 08/0 5/2 mg tabletIndications: (100 mg) by 22 022 Hyposmolality and/or mouth daily hyponatremia for 30 days. Hold if systolic BP <120 ciprofloxacin HCl Take 1 tablet 6 tablet 0 05/14/20 Discontinued (Cipro) 500 mg (500 mg) by 22 022 (Si de effects) tabletIndications: mouth once for Bladder cancer 1 dose. Take one pill 6 hours after each weekly instillation. Active Problems Problem Noted Date Gross hematuria 04/06/2022 Acute retention of urine 04/06/2022 Bladder cancer 03/20/2022 Overview: Added automatically from request for husam rony [id number] Anemia 02/17/2022 Mass of urinary bladder 02/17/2022 Overview: Added automatically from request for husam rony [id number] Pleural effusion 12/23/2021 Last Assessment & Plan: Formatting of th is note might be different from the original. Right pleural effusion has resolved and it was most likely caused by fluid overload. No need for intervention at this time. Chronic obstructive pulmonary disease 03/02/2021 Last Assessment & Plan: Formatting of th is note might be different from the original. No clinical evidence of exacerbation. Co ntinue with Trelegy Ellipta one puff daily. Diarrhea 03/01/2021 Fatigue 03/01/2021 Disorder of fluid AND/OR electrolyte 03/01/2021 Hyposmolality and/or hyponatremia 03/01/2021 Squamous cell carcinoma 12/15/2019 Hypertension 12/15/2019 Disorder of carotid artery 11/09/2019 Abdominal aortic aneurysm 11/09/2019 Last Assessment & Plan: Formatting of th is note might be different from the original. [...] 12/28/2019 Pathologic: Unsigned Last Assessment & Plan: Formatting of th is note might be different from the original. Patient currently on nivolumab. Recent PET-CT dated suggest en largement of the left lung lesion. Permanent atrial fibrillation 11/10/2018 Overview: 07/05 Regulatory Import Last Assessment & Plan: Patient has received local cardiology ev aluation for history of atrial fibrillation, abdominal aortic aneurysm. Dr. Benson did not feel the patient needed additional cardiac testing Multiple renal cysts 10/27/2018 Last Assessment & Plan: Formatting of th is note might be different from the original. The patient has been on surveillance sin ce 2014 for a 1.4 cm right renal mass. He is under the care of his local physician. Anticoagulation not tolerated Encounters Date Type Specialty Care Team Description 05/24/2022 Nurse Triage Alonso Caceres RN 05/22/2022 Telemedicine Nephrology Parish Bass, Acute tubula r necrosis (Primary Dx); Hyposmolality a nd/or hyponatremia 05/22/2022 Telephone Urology ShedUmm PA 05/22/2022 Telephone Surgical Oncology Rosalia Cedeno, MEETA 05/21/2022 Clinical Support Surgical Oncology ShedUmm Bla dder cancer PA (Primary Dx) Rosalia Cedeno, MEETA 05/21/2022 Travel 05/20/2022 Orders Only Urology Umm Mccann PA 05/20/2022 Telephone Surgical Oncology Rosalia Cedeno, MEETA 05/20/2022 Telephone Surgical Oncology Rosalia Cedeno, MEETA 05/13/2022 Telephone Surgical Oncology Rosalia Cedeno, MEETA 05/13/2022 Orders Only Urology Shed, Umm Chilel, Bladder canc er PA (Primary Dx) 05/13/2022 Telephone Surgical Oncology Rosalia Cedeno, MEETA 05/02/2022 Telephone Urology ShedUmm PA 05/02/2022 Orders Only Urology Cassie Vizcaino MD 05/01/2022 Telemedicine Genitourinary Kyle Barba Rp, Squamous olga l carcinoma, NOS of lower lobe, lung <Left>; Oncology Squamous cell c arcinoma; Mass of urinary bladder 05/01/2022 Telephone Urology ShedUmm PA 05/01/2022 Telephone Urology Shed, Umm Chilel, PA 05/01/2022 Orders Only Urology Shed, Umm Chilel, Bladder canc er PA (Primary Dx) 04/21/2022 Infusion Infusion Services Salazar Gay MD 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 (Primary Dx) 04/21/2022 Travel 04/18/2022 Orders Only Thoracic Medicine Eileen Singh, PharmD 04/17/2022 Telemedicine Thoracic Medicine Salazar Gay MD 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 (Primary Dx) 04/14/2022 Clinical Support Surgical Oncology Umm Mccann, Isauro dder cancer PA Rosalia Cedeno, MEETA 04/14/2022 Travel 04/11/2022 Orders Only Oncology Bria Blackwood Squamous cell carcinoma, NOS of lower lobe, lung <Left> (Primary Dx); L, DIRECTOR OF [employer]PERATIONS Squamous cell c arcinoma; Mass of urinary bladder 04/10/2022 Orders Only Oncology Bria Blackwood APN 04/08/2022 Orders Only Urology Umm Mccann, Bladder canc er PA (Primary Dx) 04/06/2022 Emergency Clinical Decision Foristell, Hyposmolal ity and/or hyponatremia (Primary Dx); - MD Derik Hematuria; 04/08/2022 Diez, Squamous cell c arcinoma of lower lobe of left lung; Elvin Beaver MD Permanent atrial fibrillation; Nayeli, Gross hematuria MD Sae 04/06/2022 Travel 04/06/2022 Telephone Urology Ren Walker MD 04/06/2022 Nurse Triage Fabrizio Padilla, MEETA 04/06/2022 Nurse Triage Nicolette Reyna RN 04/03/2022 Clinical Support Surgical Oncology Umm Mccann Bla dder cancer PA Gabriel Newsome RN 04/03/2022 Travel 04/02/2022 Orders Only Urology Umm Mccann, Bladder canc er PA (Primary Dx) 04/01/2022 Telephone Karine Cummins RN 04/01/2022 Orders Only Thoracic Medicine Nicolette Morataya ANP 03/31/2022 Anesthesia Event Alberto Perez III, MD 03/31/2022 Surgery Cassie Vizcaino, CYSTOURETHROS COPY WITH MD FULGURATION AND /OR TREATMENT OF SM ALL LESION(S) (0.5 UP TO 2.0 CM) 03/31/2022 Hospital Encounter Cassie Vizcaino Bladder cancer (Primary Dx) 03/31/2022 Telephone Surgical Oncology Saige Andrews MA 03/31/2022 Travel 03/28/2022 Anesthesia Event Anesthesiology Lekna Chau APN 03/28/2022 POEM Appointments Anesthesiology Umm Mccann Bladd er cancer PA 03/28/2022 Clinical Support Covid Umm Mccann Suspicio n (Primary Dx); PA Bladder cancer Samuel Burger MA 03/28/2022 Orders Only Urology Umm Mccann, Bladder canc er PA (Primary Dx) 03/28/2022 Travel 03/27/2022 Telemedicine Urology Cassie Vizcaino Bladder cance rAraceli REICH Mass of urinary bladder 03/27/2022 Telephone Thoracic Medicine Marii Malik, RN 03/27/2022 Orders Only Thoracic Medicine Marii Malik, RN 03/21/2022 Telephone Surgical Oncology Rosalia Cedeno, MEETA 03/21/2022 Orders Only Urology Shed, Umm Chilel, Bladder canc er PA (Primary Dx) 03/20/2022 Telephone Oncology Bria Blackwood DIRECTOR [employer] 03/20/2022 Orders Only Urology Shed, Umm E, Bladder canc er PA (Primary Dx) 03/18/2022 Consult Genitourinary Kyle Barba Rp, Bladder canc er Oncology 03/18/2022 Travel 03/17/2022 Orders Only Oncology Bria Blackwood 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 (Primary Dx); L, DIRECTOR OF [employer] Squamous cell c arcinoma; Mass of urinary bladder; Vitamin B12 def iciency 03/04/2022 Infusion Infusion Services Salazar Gay MD 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 (Primary Dx) 03/04/2022 Office Visit Thoracic Medicine Salazar Gay MD carcinoma, NOS of lower lobe, dmitri g <Left> 03/04/2022 Hospital Encounter Lab Salazar Gay MD 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 03/04/2022 Orders Only Thoracic Medicine Salazar Gay MD 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 (Primary Dx) 03/04/2022 Orders Only Thoracic Medicine Yarelis Morataya ANP carcinoma of lower lobe of left bonnie ng (Primary Dx) 03/04/2022 Orders Only Thoracic Medicine Vijaya Maxwell, PharmD 03/04/2022 Travel 03/03/2022 Orders Only Thoracic Medicine Nicolette Morataya ANP 02/27/2022 Telephone Urology Umm Mccann PA 02/26/2022 Telephone Oncology Gabriel Newsome RN 02/25/2022 Telephone Urology Sera Honeycutt MD 02/24/2022 Clinical Support Surgical Oncology Umm Mccann, Joseph s of urinary PA bladder Rosalia Cedeno, MEETA 02/24/2022 Travel 02/22/2022 Nurse Fabrizio Armstrong, MEETA 02/21/2022 Telephone Urology Umm Mccann PA 02/19/2022 Anesthesia Event Ambulatory Surgery Chi Doyle MD Adalsteinsson, Suzanne, CRNA 02/19/2022 Surgery Ambulatory Surgery Cassie Vizcaino, CYSTOUR ETHROSCOPY WITH FULGURATION AND /OR TREATMENT OF LA RGE LESION(S) (>5.0 CM) 02/19/2022 Hospital Encounter Ambulatory Surgery Cassie Vizcaino, P ainful bladder spasm (Primary Dx); - Mass of urinary bladder 02/20/2022 02/19/2022 Orders Only Urology Umm Mccann, Mass of urin nehal PA bladder (Primar y Dx) 02/19/2022 Travel 02/18/2022 Anesthesia Event Anesthesiology Jonah Michele PA 02/18/2022 POEM Appointments Anesthesiology Leonard Giraldo MD 02/18/2022 Ancillary Radiology Umm Mccann, Mass of urin nehal Procedure PA bladder 02/18/2022 Orders Only Internal Medicine Joel Hankins RN 02/18/2022 Travel 02/17/2022 Clinical Support Covid Umm Mccann, Suspicio n (Primary Dx); PA Mass of urinary bladder Samuel Burger MA 02/17/2022 Consult Urology Cassie Vizcaino, Mass of urina ry bladder (Primary Dx); Gross hematuria 02/17/2022 Travel 02/11/2022 Orders Only Thoracic Medicine Nicolette Morataya ANP 02/04/2022 Ancillary Radiology Enzo, Cancer Procedure MD Leonard 02/04/2022 Ancillary Radiology Enzo, Cancer Procedure MD Leonard 02/04/2022 Ancillary Radiology Enzo, Cancer Procedure MD Leonard 02/04/2022 Ancillary Radiology Enzo, Cancer Procedure MD Leonard 02/04/2022 Infusion Infusion Services Salazar Gay MD 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 (Primary Dx) 02/04/2022 Office Visit Thoracic Medicine Salazar Gay ematuria (Primary Dx); MD Tanna Squamous cell c arcinoma of lower lobe of left lung 02/04/2022 Hospital Encounter Lab Salazar Gay MD 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 02/04/2022 Orders Only Thoracic Medicine Yarelis Morataya ANP carcinoma, NO S of lower lobe, dmitri g <Left> (Primary Dx) 02/04/2022 Travel 01/07/2022 Infusion Infusion Services Salazar Gay MD 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 (Primary Dx) 01/07/2022 Travel 01/01/2022 Office Visit Thoracic Medicine Salazar Gay MD 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 01/01/2022 Hospital Encounter Lab Yarelis Morataya ANP carcinoma of lower lobe of left bonnie ng 01/01/2022 Orders Only Thoracic Medicine Nicolette Morataya ANP 01/01/2022 Orders Only Thoracic Medicine Vijaya Maxwell Squamous cell PharmD 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 (Primary Dx) 01/01/2022 Travel 12/30/2021 Nurse Triage Sally Smith NP 12/30/2021 Telephone Sally Smith asking to spe ak to Monica, FLAT IR[employer] provider; Short ness of Breath 12/24/2021 Orders Only Thoracic Medicine Yarelis Morataya ANP carcinoma of lower lobe of left bonnie ng (Primary Dx) 12/23/2021 Office Visit Pulmonology Darwin, Pleural effusio n (Primary Dx); MD Jeffry Squamous cell c arcinoma, NOS of lower lobe, lung <Left>; Chronic obstruc tive pulmonary disease, not otherwise specified 12/23/2021 Hospital Encounter Cardiology Yarelis Morataya ANP carcinoma, NO S of lower lobe, dmitri g <Left> 12/23/2021 Hospital Encounter Lab Pricilla, Pleural e ffusion DOTTIE Aguilar 12/23/2021 Ancillary Radiology Pricilla, Pleural effusio n Procedure DOTTIE Aguilar 12/23/2021 Travel 12/11/2021 Telephone Thoracic Medicine Nicolette Morataya ANP 12/11/2021 Orders Only Pulmonology Pricilla, Pleural effusio ebenezer Aguilar, DOTTIE (Primary Dx) 12/10/2021 Office Visit Thoracic Medicine Salazar Gay MD carcinoma, NOS of lower lobe, dmitri g <Left> 12/10/2021 Orders Only Radiology Rosita Milian MD 12/10/2021 Travel 12/09/2021 Ancillary Radiology Salazar Gay MD carcinoma, NOS of lower lobe, dmitri g <Left> 12/09/2021 Travel 11/19/2021 Orders Only Thoracic Medicine Liudmila Guzman, FLAT [employer]ER carcinoma, NOS of lower lobe, dmitri g <Left> (Primary Dx) 11/14/2021 Infusion Infusion Services Yarelis Morataya ANP carcinoma of lower lobe of left bonnie ng (Primary Dx) 11/14/2021 Travel 11/14/2021 Orders Only Thoracic Medicine Shayy Levin MD 11/14/2021 Orders Only Thoracic Medicine Nicolette Morataya ANP 11/13/2021 Telemedicine Thoracic Medicine Salazar Gay MD carcinoma, NOS of lower lobe, dmitri g <Left> 11/13/2021 Orders Only Thoracic Medicine Vijaya Maxwell, Squamous cell PharmD 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 (Primary Dx) 11/13/2021 Orders Only Thoracic Medicine Yarelis Morataya ANP carcinoma of lower lobe of left bonnie ng (Primary Dx) 11/13/2021 Travel 10/17/2021 Infusion Infusion Services Salazar Gay MD 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 (Primary Dx) 10/17/2021 Telemedicine Thoracic Medicine Salazar Gay MD carcinoma, NOS of Rafia, lower lobe, dmitri HEMA Panchal <Left> 10/17/2021 Travel 10/17/2021 Orders Only Thoracic [...] Foote, MEETA 09/23/2021 Orders Only Thoracic Medicine Rafia, Squamous c ell HEMA Will carcinoma of lower lobe of left bonnie ng (Primary Dx) 09/19/2021 Infusion Infusion Services Salazar Gay MD 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 (Primary Dx) 09/19/2021 Travel 09/18/2021 Office Visit Thoracic Medicine Salazar Gay MD carcinoma, NOS of lower lobe, [...] 08/22/2021 Travel 08/21/2021 Office Visit Thoracic Medicine Salazar Gay MD carcinoma, NOS of lower lobe, [...] Annalise Paris, PharmD 08/21/2021 Travel 08/20/2021 Ancillary Radiology Squamous cell Procedure carcinoma, NOS of lower lobe, dmitri g <Left> 08/20/2021 Travel 07/25/2021 Infusion Infusion Services Squamous c ell carcinoma, NOS of lower lobe, lung <Left> (Primary Dx); Squamous cell c arcinoma of lower lobe of left lung 07/25/2021 Telephone Infusion Services Yun Setele, Follow-up (chemo call RN back) 07/25/2021 Travel 07/24/2021 Office Visit Thoracic Medicine Salazar Gay MD carcinoma, NOS of lower lobe, dmitri g <Left> (Primary Dx) 07/24/2021 Hospital Encounter Lab Squamous cell carcinoma, NOS of lower lobe, dmitri g <Left> 07/24/2021 Orders Only Thoracic Medicine Vijaya Maxwell, PharmD 07/24/2021 Travel 06/26/2021 Infusion Infusion Services Salazar Gay MD 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 (Primary Dx) 06/26/2021 Office Visit Thoracic Salazar Robles MD 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 (Primary Dx) 06/26/2021 Travel 06/26/2021 Orders Only Thoracic Medicine Salazar Gay MD 06/25/2021 Ancillary Radiology Rafia, Squamous cell HEMA Landers carcinoma of lower lobe of left bonnie ng 06/25/2021 Travel 05/29/2021 Infusion Infusion Services Salazar Gay MD 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 (Primary Dx) 05/29/2021 Travel after 05/24/2021 Immunizations Name Administration Dates Next Due Influenza [...] for BCC from face CATARACT EXTRACTION, BILATERAL MD [facility] EBUS GUIDED SAMPL 11/08/2018 N/A Pro cedure: BRONCHOSCOPY 3/> NODE STATION/STRUX WITH EBUS 3 OR MORE NODES; Surgeon: Sandra Agarwal MD; [place] [facility]; Service: P ULMONARY MD BRNSCHSC [facility] EBUS DX/TX 11/08/2018 N/A Pro cedure: BRONCHOSCOPY INTERVENTION PERPH LES WITH EBUS PERIPHERAL LESION-RADIAL MD OBE; Surgeon: Sandra Agarwal MD; Location[place] [facility]; Service: P ULMONARY MD REMOVE THOR LYMPH NODES RAD 12/15/2019 Chest/Left P rocedure: THORACIC REGNL LYMPHADENECTOMY BY THORACOTOMY, MED IASTINAL AND REGIONAL LYMPHADENECTOMY; Surgeon: Flavio Benson MD; Location: MAIN OR; Service : THRCV - THORACIC SURGERY Medical devices from this surgery are in t he Medical Devices section. MD REMOVAL OF 12/15/2019 Chest/Left Procedure: SEGME NTECTOMY LUNG,SEGMENTECTOMY OF LUNG; Surg sruthi: Flavio Benson MD; Loca tion: MAIN OR; Service: THR CV - THORACIC SURGERY Medical devices from this surgery are in t he Medical Devices section. MD INJECTION AA&/STRD 12/15/2019 Chest/Left Procedure: REGIONAL INTERCOSTAL NRV EA ADDL LVL ANES THETIC BLOCK OF MULTIPLE INTERCO STAL NERVES, REGIONAL BLOCK; Surgeon: Flavio shelton MD; Location: MAIN O R; Service: THRCV - THORACIC SURGERY Medical devices from this surgery are in t he Medical Devices section. CYSTOSCOPY FULGRATION BLADDER 10/05/2017 - s/ p TURBT at [facility], benign 10/04/2018 per report MD CYSTOURETHROSCOPY,FULGUR >5 02/19/2022 Bladder/N/A P rocedure: CM LESN CYSTOURETHROSCOP Y WITH FULGURATION AND/ OR TREATMENT OF LAR GE LESION(S) (>5.0 CM); Surgeon: Cassie Vizcaino MD; Location: [facility]; Service: UROLOGY MD CYSTOURETHROSCOPY,FULGUR 03/31/2022 N/A Proc edure: 0.5-2 CM LESN CYSTOURETHROSCOP Y WITH FULGURATION AND/ OR TREATMENT OF SMA LL LESION(S) (0.5 U P TO 2.0 CM); Surgeon: Me rajesh Vizcaino MD; Locat ion: MAIN OR; Service: URO LOGY 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 Obstetrics History Last Filed Vital Signs Vital Sign Reading Time Taken Comments Blood Pressure 157/72 05/21/2022 10:22 AM CDT Pulse 54 05/21/2022 10:22 AM CDT Temperature 36.9 C (98.4 F) 05/21/2022 10:22 AM CDT Respiratory Rate 22 05/21/2022 10:22 AM CDT Oxygen Saturation 96% 05/21/2022 10:26 AM CDT Inhaled Oxygen Concentration - - Weight 87.5 kg (192 lb 14.4 oz) 05/21/2022 10:22 AM CDT Height 183 cm (6' 0.05") 04/06/2022 11:00 PM CDT Body Mass Index 26.13 04/06/2022 11:00 PM CDT Plan of Treatment Date Type Specialty Care Team Description 05/27/2022 Lab Lab Salazar Gay MD [address] [place] [phone] (Wo rk) 05/27/2022 Ancillary Procedure Radiology Fr michelle Gay MD [address] [place] [address] [phone] (Wo rk) 05/28/2022 Clinical Support Surgical Oncology Umm Mccann PA [address] [place] [address] [phone] (Wo rk) 05/29/2022 Infusion Infusion Services Nacho Gay MD [address] [place] [address] [phone] (Wo rk) 05/29/2022 Telemedicine Thoracic Medicine Nacho Gay MD [address] [place] [address] [phone] (Wo rk) 06/04/2022 Clinical Support Surgical Oncology Umm Mccann PA [address] [place] [address] [phone] (Wo rk) 06/11/2022 Clinical Support Surgical Oncology Umm Mccann PA [address] [place] [address] [phone] (Wo rk) 06/18/2022 Clinical Support Surgical Oncology Umm Mccann PA [address] [place] [address] [phone] (Wo rk) 06/25/2022 Clinical Support Surgical Oncology Ramy, SANDI Walter [address] [place], [place] 7703 (Wo rk) 08/04/2022 Procedure visit Urology Cassie Vizcaino M D [address] [place], [place] 7703 (Wo rk) Health Maintenance Due Date Last Done Comments COVID-19 Vaccination Completed 12/01/2021, 11/11/2021, , Additional history exists Medical Devices Implanted Type Area Professor Of Voice Device Shelf Model / Identifier Expiration Serial / Date Lot Cath Thoracic Str 28fr - Sn/A LDA Left: Chest [employer] 08/12/2022 [id number] / Implanted: Qty: 1 on 12/15/2019 by Flavio Benson MD at [email or web address] [facility] N/A / [id number] Stent-11/08/2013 Stent Abdomen Implanted: 11/08/2013 (Quantity not on file) Knee Replacement Procedures Procedure Name Priority Date/Time Associated Comments Diagnosis FRACTIONATED BILIRUBIN Routine 04/14/2022 10:19 Squamous cell Results for this AM CDT carcinoma, NOS of procedure are in lower lobe, lung the results <Left> section. 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 ASPARTATE AMINOTRANSFERASE Routine 04/14/2022 10:19 Squamous c ell Results for this AM CDT carcinoma, NOS of procedure are in lower lobe, lung the results <Left> section. ALANINE AMINOTRANSFERASE Routine 04/14/2022 10:19 Squamous olga l Results for this AM CDT carcinoma, NOS of procedure are in lower lobe, lung the results <Left> section. ALKALINE PHOSPHATASE Routine 04/14/2022 10:19 Squamous cell Re sults for this AM CDT carcinoma, NOS of procedure are in lower lobe, lung the results <Left> section. ALBUMIN LEVEL Routine 04/14/2022 10:19 Squamous cell Results f or this AM CDT carcinoma, NOS of procedure are in lower lobe, lung the results <Left> section. CALCIUM LEVEL TOTAL Routine 04/14/2022 10:19 Squamous cell Res ults for this AM CDT carcinoma, NOS of procedure are in lower lobe, lung the results <Left> section. 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 SERUM CREATININE Routine 04/14/2022 10:19 Squamous cell Result s for this AM CDT carcinoma, NOS of procedure are in lower lobe, lung the results <Left> section. ELECTROLYTE PANEL Routine 04/14/2022 10:19 Squamous cell Resul ts for this AM CDT carcinoma, NOS of procedure are in lower lobe, lung the results <Left> section. BLOOD UREA NITROGEN Routine 04/14/2022 10:19 Squamous cell Res ults for this AM CDT carcinoma, NOS of procedure are in lower lobe, lung the results <Left> section. GLUCOSE LEVEL Routine 04/14/2022 10:19 Squamous cell Results f or this AM CDT carcinoma, NOS of procedure are in lower lobe, lung the results <Left> section. MANUAL DIFFERENTIAL Routine 04/14/2022 10:19 Squamous cell Res ults for this AM CDT carcinoma, NOS of procedure are in lower lobe, lung the results <Left> section. Results CBC Routine 04/14/2022 10:19 Squamous cell Results fo r this AM CDT carcinoma, NOS of procedure are in lower lobe, lung the results <Left> section. FREE THYROXINE Routine 04/14/2022 10:19 Squamous cell Results for this AM CDT carcinoma of procedure are i n lower lobe of the results left lung section. THYROID STIMULATING HORMONE Routine 04/14/2022 10:19 Squamous cell Results for this AM CDT carcinoma of procedure are i n lower lobe of the results left lung section. MAGNESIUM LEVEL Routine 04/14/2022 10:19 Squamous cell Results for this AM CDT carcinoma of procedure are i n lower lobe of the results left lung section. 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 MANUAL DIFFERENTIAL AM 04/08/2022 2:33 Resul ts for this AM CDT procedure are i n the results section. Results CBC AM 04/08/2022 2:33 Results for this AM CDT procedure are i n the results section. CALCIUM LEVEL TOTAL AM 04/08/2022 2:33 Resul ts for this AM CDT procedure are i n the results section. .GLOMERULAR FILTRATION RATE AM 04/08/2022 2:33 Results for this AM CDT procedure are i n the results section. SERUM CREATININE AM 04/08/2022 2:33 Results for this AM CDT procedure are i n the results section. ELECTROLYTE PANEL AM 04/08/2022 2:33 Results for this AM CDT procedure are i n the results section. BLOOD UREA NITROGEN AM 04/08/2022 2:33 Resul ts for this AM CDT procedure are i n the results section. GLUCOSE LEVEL AM 04/08/2022 2:33 Results for this AM CDT procedure are i n the results section. BASIC METABOLIC PANEL, AM 04/08/2022 2:33 CALCIUM TOTAL AM CDT COMPLETE BLOOD COUNT W/ AM 04/08/2022 2:33 DIFFERENTIAL AM CDT PHOSPHORUS LEVEL AM 04/08/2022 2:33 Results for this AM CDT procedure are i n the results section. MAGNESIUM LEVEL AM 04/08/2022 2:33 Results f or this AM CDT procedure are i n the results section. HEMOGLOBIN Routine 04/07/2022 5:16 Results for this PM CDT procedure are i n the results section. CREATININE URINE, RANDOM Now 04/07/2022 3:26 Results for this PM CDT procedure are i n the results section. CHLORIDE LEVEL URINE Now 04/07/2022 3:26 Resu lts for this PM CDT procedure are i n the results section. POTASSIUM LEVEL URINE Now 04/07/2022 3:26 Res ults for this PM CDT procedure are i n the results section. SODIUM URINE Now 04/07/2022 3:26 Results for this PM CDT procedure are i n the results section. OSMOLALITY URINE Now 04/07/2022 3:26 Results for this PM CDT procedure are i n the results section. MRI PITUITARY W WO CONTRAST STAT 04/07/2022 2:05 Results for this PM CDT procedure are i n the results section. GENERAL LABORATORY ADD ON STAT 04/07/2022 1:39 Results for this TEST PM CDT procedure are i n the results section. CORTISOL Now 04/07/2022 10:32 Results for this AM CDT procedure are i n the results section. PROLACTIN Now 04/07/2022 10:32 Results for this AM CDT procedure are i n the results section. LUTEINIZING HORMONE Now 04/07/2022 10:32 Resu lts for this AM CDT procedure are i n the results section. FOLLICLE STIMULATING Now 04/07/2022 10:32 Res ults for this HORMONE LEVEL AM CDT procedure are in the results section. ADRENOCORTICOTROPIC HORMONE Now 04/07/2022 10:32 Results for this AM CDT procedure are i n the results section. TESTOSTERONE LEVEL Now 04/07/2022 10:32 Resul ts for this AM CDT procedure are i n the results section. C REACTIVE PROTEIN Now 04/07/2022 10:32 Resul ts for this AM CDT procedure are i n the results section. SEDIMENTATION RATE Now 04/07/2022 10:32 Resul ts for this NON-AUTOMATED AM CDT procedure are in the results section. MANUAL DIFFERENTIAL AM 04/07/2022 1:56 Resul ts for this AM CDT procedure are i n the results section. Results CBC AM 04/07/2022 1:56 Results for this AM CDT procedure are i n the results section. CALCIUM LEVEL TOTAL AM 04/07/2022 1:56 Resul ts for this AM CDT procedure are i n the results section. .GLOMERULAR FILTRATION RATE AM 04/07/2022 1:56 Results for this AM CDT procedure are i n the results section. SERUM CREATININE AM 04/07/2022 1:56 Results for this AM CDT procedure are i n the results section. ELECTROLYTE PANEL AM 04/07/2022 1:56 Results for this AM CDT procedure are i n the results section. BLOOD UREA NITROGEN AM 04/07/2022 1:56 Resul ts for this AM CDT procedure are i n the results section. GLUCOSE LEVEL AM 04/07/2022 1:56 Results for this AM CDT procedure are i n the results section. SODIUM LEVEL STAT 04/07/2022 1:56 Results for this AM CDT procedure are i n the results section. FREE THYROXINE Now 04/07/2022 1:56 Results fo r this AM CDT procedure are i n the results section. THYROID STIMULATING HORMONE Now 04/07/2022 1:56 Results for this AM CDT procedure are i n the results section. BASIC METABOLIC PANEL, AM 04/07/2022 1:56 CALCIUM TOTAL AM CDT COMPLETE BLOOD COUNT W/ AM 04/07/2022 1:56 DIFFERENTIAL AM CDT PHOSPHORUS LEVEL AM 04/07/2022 1:56 Results for this AM CDT procedure are i n the results section. MAGNESIUM LEVEL AM 04/07/2022 1:56 Results f or this AM CDT procedure are i n the results section. CT HEAD WO CONTRAST STAT 04/07/2022 12:53 Resu lts for this AM CDT procedure are i n the results section. SODIUM URINE Now 04/06/2022 9:18 Results for this PM CDT procedure are i n the results section. OSMOLALITY URINE Now 04/06/2022 9:18 Results for this PM CDT procedure are i n the results section. OSMOLALITY Now 04/06/2022 9:18 Results for this PM CDT procedure are i n the results section. COVID-19 (SARS-COV-2) Now 04/06/2022 9:05 Res ults for this ASYMPTOMATIC-LT PM CDT procedure ar e in the results section. POC CHEM 8 Routine 04/06/2022 8:22 Results for this PM CDT procedure are i n the results section. URINALYSIS MICROSCOPIC Routine 04/06/2022 6:18 Re sults for this PM CDT procedure are i n the results section. FRACTIONATED BILIRUBIN Now 04/06/2022 6:18 Re sults for this PM CDT procedure are i n the results section. TOTAL PROTEIN Now 04/06/2022 6:18 Results for this PM CDT procedure are i n the results section. ASPARTATE AMINOTRANSFERASE Now 04/06/2022 6:18 Results for this PM CDT procedure are i n the results section. ALANINE AMINOTRANSFERASE Now 04/06/2022 6:18 Results for this PM CDT procedure are i n the results section. ALKALINE PHOSPHATASE Now 04/06/2022 6:18 Resu lts for this PM CDT procedure are i n the results section. ALBUMIN LEVEL Now 04/06/2022 6:18 Results for this PM CDT procedure are i n the results section. CALCIUM LEVEL TOTAL Now 04/06/2022 6:18 Resul ts for this PM CDT procedure are i n the results section. .GLOMERULAR FILTRATION RATE Now 04/06/2022 6:18 Results for this PM CDT procedure are i n the results section. SERUM CREATININE Now 04/06/2022 6:18 Results for this PM CDT procedure are i n the results section. ELECTROLYTE PANEL Now 04/06/2022 6:18 Results for this PM CDT procedure are i n the results section. BLOOD UREA NITROGEN Now 04/06/2022 6:18 Resul ts for this PM CDT procedure are i n the results section. GLUCOSE LEVEL Now 04/06/2022 6:18 Results for this PM CDT procedure are i n the results section. MANUAL DIFFERENTIAL STAT 04/06/2022 6:18 Resul ts for this PM CDT procedure are i n the results section. Results CBC STAT 04/06/2022 6:18 Results for this PM CDT procedure are i n the results section. PHOSPHORUS LEVEL Now 04/06/2022 6:18 Results for this PM CDT procedure are i n the results section. MAGNESIUM LEVEL Now 04/06/2022 6:18 Results f or this PM CDT procedure are i n the results section. LACTATE DEHYDROGENASE Now 04/06/2022 6:18 Res ults for this PM CDT procedure are i n the results section. COMPREHENSIVE METABOLIC Now 04/06/2022 6:18 PANEL PM CDT APTT Now 04/06/2022 6:18 Results for this PM CDT procedure are i n the results section. PROTHROMBIN TIME Now 04/06/2022 6:18 Results for this PM CDT procedure are i n the results section. COMPLETE BLOOD COUNT W/ Now 04/06/2022 6:18 DIFFERENTIAL PM CDT URINALYSIS WITH MICROSCOPIC Now 04/06/2022 6:18 Results for this IF INDICATED PM CDT procedure are i n the results section. URINE CULTURE Now 04/06/2022 6:18 Results for this PM CDT procedure are i n the results section. PATHOLOGY SURGICAL Routine 03/31/2022 4:28 Bladder cancer Resu lts for this INTERPRETATION PM CDT procedure are in the results section. CYSTOURETHROSCOPY WITH 03/31/2022 3:04 Bladder cancer FULGURATION AND/OR PM CDT TREATMENT OF SMALL LESION(S) (0.5 UP TO 2.0 CM) Special Needs AA@1300 Pt was call to be he re for 1030 COVID-19 (SARS-COV-2) Routine 03/28/2022 11:03 Suspicion Re sults for this PCR-ASYMPTOMATIC MC AM CDT procedur e are in the results section. TMP INTERPRETATION Routine 03/28/2022 10:54 Resul ts for this ANTIBODY SCREEN NEGATIVE AM CDT pro cedure are in the results section. CLOT EXPIRATION DATE Routine 03/28/2022 10:54 Res ults for this AM CDT procedure are i n the results section. ANTIBODY SCREEN Routine 03/28/2022 10:54 Bladder cancer Result s for this AM CDT procedure are i n the results section. URINALYSIS WITH Routine 03/28/2022 10:54 Results for this MICROSCOPIC IF INDICATED AM CDT pro cedure are in the results section. ABORH Routine 03/28/2022 10:54 Bladder cancer Results f or this AM CDT procedure are i n the results section. URINALYSIS MICROSCOPIC Routine 03/28/2022 10:54 Bladder cancer Results for this AM CDT procedure are i n the results section. TYPE AND SCREEN Routine 03/28/2022 10:54 Bladder cancer AM CDT URINE CULTURE Routine 03/28/2022 10:54 Bladder cancer Results for this AM CDT procedure are i n the results section. FRACTIONATED BILIRUBIN Routine 03/18/2022 1:56 PM Squamous olga l Results for this CDT carcinoma, NOS of procedure are in lower lobe, lung the results <Left> section. 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 carcinoma Mass of urinary bladder Vitamin B12 deficiency FERRITIN LVL Routine 03/18/2022 1:56 PM Squamous cell Results for this CDT carcinoma of lower procedure are in lobe of left dmitri g the results Squamous cell section. 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 TOTAL PROTEIN Routine 03/04/2022 8:34 AM Squamous cell Results for this CDT carcinoma, NOS of procedure are in lower lobe, lung the results <Left> section. ASPARTATE Routine 03/04/2022 8:34 AM Squamous cell Results for this AMINOTRANSFERASE CDT carcinoma, NOS of proced ure are in lower lobe, lung the results <Left> section. ALANINE AMINOTRANSFERASE Routine 03/04/2022 8:34 AM Squamous c ell Results for this CDT carcinoma, NOS of procedure are in lower lobe, lung the results <Left> section. ALKALINE PHOSPHATASE Routine 03/04/2022 8:34 AM Squamous cell Results for this CDT carcinoma, NOS of procedure are in lower lobe, lung the results <Left> section. ALBUMIN LEVEL Routine 03/04/2022 8:34 AM Squamous cell Results for this CDT carcinoma, NOS of procedure are in lower lobe, lung the results <Left> section. CALCIUM LEVEL TOTAL Routine 03/04/2022 8:34 AM Squamous cell R esults for this CDT carcinoma, NOS of procedure are in lower lobe, lung the results <Left> section. .GLOMERULAR FILTRATION Routine 03/04/2022 8:34 AM Squamous olga l Results for this RATE CDT carcinoma, NOS of procedure are in lower lobe, lung the results <Left> section. SERUM CREATININE Routine 03/04/2022 8:34 AM Squamous cell Resu lts for this CDT carcinoma, NOS of procedure are in lower lobe, lung the results <Left> section. ELECTROLYTE PANEL Routine 03/04/2022 8:34 AM Squamous cell Res ults for this CDT carcinoma, NOS of procedure are in lower lobe, lung the results <Left> section. BLOOD UREA NITROGEN Routine 03/04/2022 8:34 AM Squamous cell R esults for this CDT carcinoma, NOS of procedure are in lower lobe, lung the results <Left> section. GLUCOSE LEVEL Routine 03/04/2022 8:34 AM Squamous cell Results for this CDT carcinoma, NOS of procedure are in lower lobe, lung the results <Left> section. MANUAL DIFFERENTIAL Routine 03/04/2022 8:34 AM Squamous cell R esults for this CDT carcinoma, NOS of procedure are in lower lobe, lung the results <Left> section. Results CBC Routine 03/04/2022 8:34 AM Squamous cell Results for this CDT carcinoma, NOS of procedure are in lower lobe, lung the results <Left> section. FREE THYROXINE Routine 03/04/2022 8:34 AM Squamous cell Result s for this CDT carcinoma of lower procedure are in lobe of left lung the result s section. THYROID STIMULATING Routine 03/04/2022 8:34 AM Squamous cell R esults for this HORMONE CDT carcinoma of lower procedure are in lobe of left lung the result s section. MAGNESIUM LEVEL Routine 03/04/2022 8:34 AM Squamous cell Resul ts for this CDT carcinoma of lower procedure are in lobe of left lung the result s section. COMPREHENSIVE METABOLIC Routine 03/04/2022 8:34 AM Squamous ce ll PANEL CDT carcinoma of lower lobe of left lung COMPLETE BLOOD COUNT W/ Routine 03/04/2022 8:34 AM Squamous ce ll DIFFERENTIAL CDT carcinoma of lower lobe of left lung PATHOLOGY SURGICAL Routine 02/19/2022 12:24 Mass of urinary Re sults for this INTERPRETATION PM CDT bladder procedure are in the results section. CYSTOURETHROSCOPY WITH 02/19/2022 10:59 Mass of urinar y FULGURATION AND/OR AM CDT bladder TREATMENT OF LARGE LESION(S) (>5.0 CM) [facility] [place] [facility]. She stated patient is hard of hearing. CT ABDOMEN PELVIS W WO Routine 02/18/2022 9:02 AM Mass of urin nehal Results for this CONTRAST UROGRAM CDT bladder procedure a re in the results section. POC CREATININE Routine 02/18/2022 7:49 AM Results for this CDT procedure are i n the results section. COVID-19 (SARS-COV-2) Routine 02/17/2022 11:16 Suspicion Results for this PCR ASYMPTOMATIC AM CDT procedure a re in the results section. TMP INTERPRETATION ANTIBODY Routine 02/17/2022 10:51 Results for this SCREEN NEGATIVE AM CDT procedure ar e in the results section. CLOT EXPIRATION DATE Routine 02/17/2022 10:51 Res ults for this AM CDT procedure are i n the results section. URINALYSIS WITH MICROSCOPIC Routine 02/17/2022 10:51 Results for this IF INDICATED AM CDT procedure are i n the results section. ANTIBODY SCREEN Routine 02/17/2022 10:51 Mass of urinary Resul ts for this AM CDT bladder procedure are i n the results section. ABORH Routine 02/17/2022 10:51 Mass of urinary Results for this AM CDT bladder procedure are i n the results section. APTT Routine 02/17/2022 10:51 Mass of urinary Results for this AM CDT bladder procedure are i n the results section. URINALYSIS MICROSCOPIC Routine 02/17/2022 10:51 Mass of urinar y Results for this AM CDT bladder procedure are i n the results section. HEMOGLOBIN A1C Routine 02/17/2022 10:51 Mass of urinary Result s for this AM CDT bladder procedure are i n the results section. PROTHROMBIN TIME Routine 02/17/2022 10:51 Mass of urinary Resu lts for this AM CDT bladder procedure are i n the results section. TYPE AND SCREEN Routine 02/17/2022 10:51 Mass of urinary AM CDT bladder URINE CULTURE Routine 02/17/2022 10:51 Mass of urinary Results for this AM CDT bladder procedure are i n the results section. MANUAL DIFFERENTIAL Routine 02/04/2022 8:05 AM Squamous cell R esults for this CDT carcinoma, NOS procedure are in of lower lobe, the results lung <Left> section. FRACTIONATED BILIRUBIN Routine 02/04/2022 8:05 AM Squamous olga l Results for this CDT carcinoma, NOS procedure are in of lower lobe, the results lung <Left> section. TOTAL PROTEIN Routine 02/04/2022 8:05 AM Squamous cell Results for this CDT carcinoma, NOS procedure are in of lower lobe, the results lung <Left> section. ASPARTATE AMINOTRANSFERASE Routine 02/04/2022 8:05 AM Squamous cell Results for this CDT carcinoma, NOS procedure are in of lower lobe, the results lung <Left> section. ALANINE AMINOTRANSFERASE Routine 02/04/2022 8:05 AM Squamous c ell Results for this CDT carcinoma, NOS procedure are in of lower lobe, the results lung <Left> section. ALKALINE PHOSPHATASE Routine 02/04/2022 8:05 AM Squamous cell Results for this CDT carcinoma, NOS procedure are in of lower lobe, the results lung <Left> section. ALBUMIN LEVEL Routine 02/04/2022 8:05 Squamous cell Results f or this AM CDT carcinoma, NOS procedure are in of lower lobe, the results lung <Left> section. CALCIUM LEVEL TOTAL Routine 02/04/2022 8:05 AM Squamous cell R esults for this CDT carcinoma, NOS procedure are in of lower lobe, the results lung <Left> section. .GLOMERULAR FILTRATION RATE Routine 02/04/2022 8:05 AM Squamou s cell Results for this CDT carcinoma, NOS procedure are in of lower lobe, the results lung <Left> section. SERUM CREATININE Routine 02/04/2022 8:05 AM Squamous cell Resu lts for this CDT carcinoma, NOS procedure are in of lower lobe, the results lung <Left> section. ELECTROLYTE PANEL Routine 02/04/2022 8:05 AM Squamous cell Res ults for this CDT carcinoma, NOS procedure are in of lower lobe, the results lung <Left> section. BLOOD UREA NITROGEN Routine 02/04/2022 8:05 AM Squamous cell R esults for this CDT carcinoma, NOS procedure are in of lower lobe, the results lung <Left> section. GLUCOSE LEVEL Routine 02/04/2022 8:05 AM Squamous cell Results for this CDT carcinoma, NOS procedure are in of lower lobe, the results lung <Left> section. Results CBC Routine 02/04/2022 8:05 AM Squamous cell Results for this CDT carcinoma, NOS procedure are in of lower lobe, the results lung <Left> section. CORTISOL Routine 02/04/2022 8:05 AM Squamous cell Results for this CDT carcinoma of procedure are i n lower lobe of the results left lung section. ADRENOCORTICOTROPIC HORMONE Routine 02/04/2022 8:05 AM Squamou s cell Results for this CDT carcinoma of procedure are i n lower lobe of the results left lung section. FREE THYROXINE Routine 02/04/2022 8:05 AM Squamous cell Result s for this CDT carcinoma of procedure are i n lower lobe of the results left lung section. THYROID STIMULATING HORMONE Routine 02/04/2022 8:05 AM Squamou s cell Results for this CDT carcinoma of procedure are i n lower lobe of the results left lung section. MAGNESIUM LEVEL Routine 02/04/2022 8:05 AM Squamous cell Resul ts for this CDT carcinoma of procedure are i n lower lobe of the results left lung section. 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 FRACTIONATED BILIRUBIN Routine 01/01/2022 9:58 AM Squamous olga l Results for this CDT carcinoma, NOS procedure are in of lower lobe, the results lung <Left> section. TOTAL PROTEIN Routine 01/01/2022 9:58 AM Squamous cell Results for this CDT carcinoma, NOS procedure are in of lower lobe, the results lung <Left> section. ASPARTATE AMINOTRANSFERASE Routine 01/01/2022 9:58 AM Squamous cell Results for this CDT carcinoma, NOS procedure are in of lower lobe, the results lung <Left> section. ALANINE AMINOTRANSFERASE Routine 01/01/2022 9:58 AM Squamous c ell Results for this CDT carcinoma, NOS procedure are in of lower lobe, the results lung <Left> section. ALKALINE PHOSPHATASE Routine 01/01/2022 9:58 AM Squamous cell Results for this CDT carcinoma, NOS procedure are in of lower lobe, the results lung <Left> section. ALBUMIN LEVEL Routine 01/01/2022 9:58 AM Squamous cell Results for this CDT carcinoma, NOS procedure are in of lower lobe, the results lung <Left> section. CALCIUM LEVEL TOTAL Routine 01/01/2022 9:58 AM Squamous cell R esults for this CDT carcinoma, NOS procedure are in of lower lobe, the results lung <Left> section. .GLOMERULAR FILTRATION RATE Routine 01/01/2022 9:58 AM Squamou s cell Results for this CDT carcinoma, NOS procedure are in of lower lobe, the results lung <Left> section. SERUM CREATININE Routine 01/01/2022 9:58 AM Squamous cell Resu lts for this CDT carcinoma, NOS procedure are in of lower lobe, the results lung <Left> section. ELECTROLYTE PANEL Routine 01/01/2022 9:58 AM Squamous cell Res ults for this CDT carcinoma, NOS procedure are in of lower lobe, the results lung <Left> section. BLOOD UREA NITROGEN Routine 01/01/2022 9:58 AM Squamous cell R esults for this CDT carcinoma, NOS procedure are in of lower lobe, the results lung <Left> section. GLUCOSE LEVEL Routine 01/01/2022 9:58 AM Squamous cell Results for this CDT carcinoma, NOS procedure are in of lower lobe, the results lung <Left> section. MANUAL DIFFERENTIAL Routine 01/01/2022 9:58 AM Squamous cell R esults for this CDT carcinoma, NOS procedure are in of lower lobe, the results lung <Left> section. Results CBC Routine 01/01/2022 9:58 AM Squamous cell Results for this CDT carcinoma, NOS procedure are in of lower lobe, the results lung <Left> section. URIC ACID Routine 01/01/2022 9:58 AM Squamous cell Results for this CDT carcinoma of procedure are i n lower lobe of the results left lung section. THYROID STIMULATING HORMONE Routine 01/01/2022 9:58 AM Squamou s cell Results for this CDT carcinoma of procedure are i n lower lobe of the results left lung section. TOTAL T3 Routine 01/01/2022 9:58 AM Squamous cell Results for this CDT carcinoma of procedure are i n lower lobe of the results left lung section. MAGNESIUM LEVEL Routine 01/01/2022 9:58 AM Squamous cell Resul ts for this CDT carcinoma of procedure are i n lower lobe of the results left lung section. FREE THYROXINE Routine 01/01/2022 9:58 AM Squamous cell Result s for this CDT carcinoma of procedure are i n lower lobe of the results left lung section. 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 OSI CT CHEST Routine 12/30/2021 3:13 PM Cancer Results f or this CDT procedure are i n the results section. ECHOCARDIOGRAM 2D COMPLETE Routine 12/23/2021 3:33 PM Squamous cell Results for this CDT carcinoma, NOS procedure are in of lower lobe, the results lung <Left> section. XR CHEST 2 VW Routine 12/23/2021 1:06 PM Pleural effusion Resu lts for this CDT procedure are i n the results section. PROTHROMBIN TIME Routine 12/23/2021 1:05 PM Pleural effusion R esults for this CDT procedure are i n the results section. PETCT SUBSEQUENT TREATMENT Routine 12/09/2021 11:36 Squamous c ell Results for this STRATEGY AM [facility] carcinoma, NOS procedure are in of lower lobe, the results lung <Left> section. FRACTIONATED BILIRUBIN Routine 12/09/2021 9:00 AM Squamous olga l Results for this [facility] carcinoma, NOS procedure are in of lower lobe, the results lung <Left> section. TOTAL PROTEIN Routine 12/09/2021 9:00 AM Squamous cell Results for this [facility] carcinoma, NOS procedure are in of lower lobe, the results lung <Left> section. ASPARTATE AMINOTRANSFERASE Routine 12/09/2021 9:00 AM Squamous cell Results for this [facility] carcinoma, NOS procedure are in of lower lobe, the results lung <Left> section. ALANINE AMINOTRANSFERASE Routine 12/09/2021 9:00 AM Squamous c ell Results for this [facility] carcinoma, NOS procedure are in of lower lobe, the results lung <Left> section. ALKALINE PHOSPHATASE Routine 12/09/2021 9:00 AM Squamous cell Results for this [facility] carcinoma, NOS procedure are in of lower lobe, the results lung <Left> section. ALBUMIN LEVEL Routine 12/09/2021 9:00 AM Squamous cell Results for this [facility] carcinoma, NOS procedure are in of lower lobe, the results lung <Left> section. CALCIUM LEVEL TOTAL Routine 12/09/2021 9:00 AM Squamous cell R esults for this [facility] carcinoma, NOS procedure are in of lower lobe, the results lung <Left> section. .GLOMERULAR FILTRATION RATE Routine 12/09/2021 9:00 AM Squamou s cell Results for this [facility]AM[facility] carcinoma, NOS procedure are in of lower lobe, the results lung <Left> section. SERUM CREATININE Routine 12/09/2021 9:00 AM Squamous cell Resu lts for this [facility] carcinoma, NOS procedure are in of lower lobe, the results lung <Left> section. ELECTROLYTE PANEL Routine 12/09/2021 9:00 AM Squamous cell Res ults for this [facility] carcinoma, NOS procedure are in of lower lobe, the results lung <Left> section. BLOOD UREA NITROGEN Routine 12/09/2021 9:00 AM Squamous cell R esults for this [facility] carcinoma, NOS procedure are in of lower lobe, the results lung <Left> section. GLUCOSE LEVEL Routine 12/09/2021 9:00 AM Squamous cell Results for this [facility] carcinoma, NOS procedure are in of lower lobe, the results lung <Left> section. MANUAL DIFFERENTIAL Routine 12/09/2021 9:00 AM Squamous cell R esults for this [facility] carcinoma, NOS procedure are in of lower lobe, the results lung <Left> section. Results CBC Routine 12/09/2021 9:00 AM Squamous cell Results for this [facility] carcinoma, NOS procedure are in of lower lobe, the results lung <Left> section. FREE THYROXINE Routine 12/09/2021 9:00 AM Squamous cell Result s for this [facility] carcinoma of procedure are i n lower lobe of the results left lung section. THYROID STIMULATING HORMONE Routine 12/09/2021 9:00 AM Squamou s cell Results for this [facility] carcinoma of procedure are i n lower lobe of the results left lung section. MAGNESIUM LEVEL Routine 12/09/2021 9:00 AM Squamous cell Resul ts for this [facility] carcinoma of procedure are i n lower lobe of the results left lung section. COMPREHENSIVE METABOLIC Routine 12/09/2021 9:00 AM Squamous ce ll PANEL [facility] carcinoma of lower lobe of left lung COMPLETE BLOOD COUNT W/ Routine 12/09/2021 9:00 AM Squamous ce ll DIFFERENTIAL [facility] carcinoma of lower lobe of left lung OSI CHEST Routine 11/19/2021 3:19 PM Cancer Results f or this [facility] procedure are i n the results section. GENERAL LABORATORY ADD ON STAT 11/13/2021 3:45 PM Squamous cell Results for this TEST [facility] carcinoma of procedure are i n lower lobe of the results left lung section. THYROID STIMULATING HORMONE Routine 11/13/2021 8:54 AM Results for this [facility] procedure are i n the results section. FREE THYROXINE Routine 11/13/2021 8:54 AM Results for this [facility] procedure are i n the results section. MANUAL DIFFERENTIAL Routine 11/13/2021 8:54 AM Squamous cell R esults for this [facility] carcinoma, NOS procedure are in of lower lobe, the results lung <Left> section. Results CBC Routine 11/13/2021 8:54 AM Squamous cell Results for this [facility] carcinoma, NOS procedure are in of lower lobe, the results lung <Left> section. FRACTIONATED BILIRUBIN Routine 11/13/2021 8:54 AM Squamous olga l Results for this [facility] carcinoma, NOS procedure are in of lower lobe, the results lung <Left> section. TOTAL PROTEIN Routine 11/13/2021 8:54 AM Squamous cell Results for this [facility] carcinoma, NOS procedure are in of lower lobe, the results lung <Left> section. ASPARTATE AMINOTRANSFERASE Routine 11/13/2021 8:54 AM Squamous cell Results for this [facility] carcinoma, NOS procedure are in of lower lobe, the results lung <Left> section. ALANINE AMINOTRANSFERASE Routine 11/13/2021 8:54 Squamous olga l Results for this AM [facility] carcinoma, NOS procedure are in of lower lobe, the results lung <Left> section. ALKALINE PHOSPHATASE Routine 11/13/2021 8:54 AM Squamous cell Results for this [facility] carcinoma, NOS procedure are in of lower lobe, the results lung <Left> section. ALBUMIN LEVEL Routine 11/13/2021 8:54 AM Squamous cell Results for this [facility] carcinoma, NOS procedure are in of lower lobe, the results lung <Left> section. CALCIUM LEVEL TOTAL Routine 11/13/2021 8:54 AM Squamous cell R esults for this [facility] carcinoma, NOS procedure are in of lower lobe, the results lung <Left> section. .GLOMERULAR FILTRATION RATE Routine 11/13/2021 8:54 AM Squamou s cell Results for this [facility] carcinoma, NOS procedure are in of lower lobe, the results lung <Left> section. SERUM CREATININE Routine 11/13/2021 8:54 AM Squamous cell Resu lts for this [facility]AM[facility] carcinoma, NOS procedure are in of lower lobe, the results lung <Left> section. ELECTROLYTE PANEL Routine 11/13/2021 8:54 AM Squamous cell Res ults for this [facility] carcinoma, NOS procedure are in of lower lobe, the results lung <Left> section. BLOOD UREA NITROGEN Routine 11/13/2021 8:54 AM Squamous cell R esults for this [facility] carcinoma, NOS procedure are in of lower lobe, the results lung <Left> section. GLUCOSE LEVEL Routine 11/13/2021 8:54 AM Squamous cell Results for this [facility] carcinoma, NOS procedure are in of lower lobe, the results lung <Left> section. MAGNESIUM LEVEL Routine 11/13/2021 8:54 AM Squamous cell Resul ts for this [facility] carcinoma of procedure are i n lower lobe of the results left lung section. COMPREHENSIVE METABOLIC Routine 11/13/2021 8:54 AM Squamous ce ll PANEL [facility] carcinoma of lower lobe of left lung COMPLETE BLOOD COUNT W/ Routine 11/13/2021 8:54 AM Squamous ce ll DIFFERENTIAL [facility] carcinoma of lower lobe of left lung FRACTIONATED BILIRUBIN Routine 10/15/2021 10:56 R esults for this AM [facility] procedure are i n the results section. TOTAL PROTEIN Routine 10/15/2021 10:56 Results fo r this AM [facility] procedure are i n the results section. ASPARTATE AMINOTRANSFERASE Routine 10/15/2021 10:56 Results for this AM [facility] procedure are i n the results section. ALANINE AMINOTRANSFERASE Routine 10/15/2021 10:56 Results for this AM [facility] procedure are i n the results section. ALKALINE PHOSPHATASE Routine 10/15/2021 10:56 Res ults for this AM [facility] procedure are i n the results section. ALBUMIN LEVEL Routine 10/15/2021 10:56 Results fo r this AM [facility] procedure are i n the results section. CALCIUM LEVEL TOTAL Routine 10/15/2021 10:56 Resu lts for this AM [facility] procedure are i n the results section. .GLOMERULAR FILTRATION RATE Routine 10/15/2021 10:56 Results for this AM [facility] procedure are i n the results section. SERUM CREATININE Routine 10/15/2021 10:56 Results for this AM [facility] procedure are i n the results section. ELECTROLYTE PANEL Routine 10/15/2021 10:56 Result s for this AM [facility] procedure are i n the results section. BLOOD UREA NITROGEN Routine 10/15/2021 10:56 Resu lts for this AM [facility] procedure are i n the results section. GLUCOSE LEVEL Routine 10/15/2021 10:56 Results fo r this AM [facility] procedure are i n the results section. MANUAL DIFFERENTIAL Routine 10/15/2021 10:56 Resu lts for this AM [facility] procedure are i n the results section. Results CBC Routine 10/15/2021 10:56 Results for this AM [facility] procedure are i n the results section. FREE THYROXINE Routine 10/15/2021 10:56 Results f or this AM [facility] procedure are i n the results section. THYROID STIMULATING HORMONE Routine 10/15/2021 10:56 Results for this AM [facility] procedure are i n the results section. MAGNESIUM LEVEL Routine 10/15/2021 10:56 Results for this AM [facility] procedure are i n the results section. COMPREHENSIVE METABOLIC Routine 10/15/2021 10:56 PANEL AM [facility] COMPLETE BLOOD COUNT W/ Routine 10/15/2021 10:[address] CHEST W CONTRAST Routine 10/15/2021 9:56 AM Squamous cell R esults for this [facility] carcinoma, NOS procedure are in of lower lobe, the results lung <Left> section. POC CREATININE Routine 10/15/2021 9:21 AM Results for this [facility] procedure are i n the results section. PATHOLOGY BIOPSY Routine 09/30/2021 8:31 AM Basal cell Resul ts for this INTERPRETATION [facility] carcinoma of procedure are in anterior chest the results Basal cell section. carcinoma of back EXCISION Routine 09/30/2021 8:30 AM Basal cell Results f or this [facility] carcinoma of procedure are i n back the results section. EXCISION Routine 09/30/2021 8:29 AM Basal cell Results f or this [facility] carcinoma of procedure are i n anterior chest the results section. MOHS SITE 1 Routine 09/30/2021 8:29 AM Squamous cell Results for this [facility] carcinoma of procedure are i n forehead the results section. MOHS SITE 1 Routine 09/30/2021 8:29 AM Squamous cell Results for this [facility] carcinoma of procedure are i n scalp the results section. FRACTIONATED BILIRUBIN Routine 09/18/2021 10:30 R esults for this AM [facility] procedure are i n the results section. TOTAL PROTEIN Routine 09/18/2021 10:30 Results fo r this AM [facility] procedure are i n the results section. ASPARTATE AMINOTRANSFERASE Routine 09/18/2021 10:30 Results for this AM [facility] procedure are i n the results section. ALANINE AMINOTRANSFERASE Routine 09/18/2021 10:30 Results for this AM [facility] procedure are i n the results section. ALKALINE PHOSPHATASE Routine 09/18/2021 10:30 Res ults for this AM [facility] procedure are i n the results section. ALBUMIN LEVEL Routine 09/18/2021 10:30 Results fo r this AM [facility] procedure are i n the results section. CALCIUM LEVEL TOTAL Routine 09/18/2021 10:30 Resu lts for this AM [facility] procedure are i n the results section. .GLOMERULAR FILTRATION RATE Routine 09/18/2021 10:30 Results for this AM [facility] procedure are i n the results section. SERUM CREATININE Routine 09/18/2021 10:30 Results for this AM [facility] procedure are i n the results section. ELECTROLYTE PANEL Routine 09/18/2021 10:30 Result s for this AM [facility] procedure are i n the results section. BLOOD UREA NITROGEN Routine 09/18/2021 10:30 Resu lts for this AM [facility] procedure are i n the results section. GLUCOSE LEVEL Routine 09/18/2021 10:30 Results fo r this AM [facility] procedure are i n the results section. MANUAL DIFFERENTIAL Routine 09/18/2021 10:30 Resu lts for this AM [facility] procedure are i n the results section. Results CBC Routine 09/18/2021 10:30 Results for this AM [facility] procedure are i n the results section. FREE THYROXINE Routine 09/18/2021 10:30 Results f or this AM [facility] procedure are i n the results section. THYROID STIMULATING HORMONE Routine 09/18/2021 10:30 Results for this AM [facility] procedure are i n the results section. MAGNESIUM LEVEL Routine 09/18/2021 10:30 Results for this AM [facility] procedure are i n the results section. COMPREHENSIVE METABOLIC Routine 09/18/2021 10:30 PANEL AM [facility] COMPLETE BLOOD COUNT W/ Routine 09/18/2021 10:30 DIFFERENTIAL AM [facility] PATHOLOGY BIOPSY Routine 08/21/2021 10:17 Neoplasm of Results for this INTERPRETATION AM [facility] uncertain procedure are in behavior of skin the results section. CT CHEST W CONTRAST Routine 08/20/2021 10:32 Squamous cell Res ults for this AM [facility] carcinoma, NOS procedure are in of lower lobe, the results lung <Left> section. POC CREATININE Routine 08/20/2021 10:03 Results f or this AM [facility] procedure are i n the results section. FRACTIONATED BILIRUBIN Routine 08/20/2021 9:23 AM Results for this [facility] procedure are i n the results section. TOTAL PROTEIN Routine 08/20/2021 9:23 AM Results for this [facility] procedure are i n the results section. ASPARTATE AMINOTRANSFERASE Routine 08/20/2021 9:23 AM Results for this [facility] procedure are i n the results section. ALANINE AMINOTRANSFERASE Routine 08/20/2021 9:23 AM Results for this [facility] procedure are i n the results section. ALKALINE PHOSPHATASE Routine 08/20/2021 9:23 AM R esults for this [facility] procedure are i n the results section. ALBUMIN LEVEL Routine 08/20/2021 9:23 AM Results for this [facility] procedure are i n the results section. CALCIUM LEVEL TOTAL Routine 08/20/2021 9:23 AM Re sults for this [facility] procedure are i n the results section. .GLOMERULAR FILTRATION RATE Routine 08/20/2021 9:23 AM Results for this [facility] procedure are i n the results section. SERUM CREATININE Routine 08/20/2021 9:23 AM Resul ts for this [facility] procedure are i n the results section. ELECTROLYTE PANEL Routine 08/20/2021 9:23 AM Resu lts for this [facility] procedure are i n the results section. BLOOD UREA NITROGEN Routine 08/20/2021 9:23 AM Re sults for this [facility] procedure are i n the results section. GLUCOSE LEVEL Routine 08/20/2021 9:23 AM Results for this [facility] procedure are i n the results section. MANUAL DIFFERENTIAL Routine 08/20/2021 9:23 AM Re sults for this [facility] procedure are i n the results section. Results CBC Routine 08/20/2021 9:23 AM Results f or this [facility] procedure are i n the results section. FREE THYROXINE Routine 08/20/2021 9:23 AM Results for this [facility] procedure are i n the results section. THYROID STIMULATING HORMONE Routine 08/20/2021 9:23 AM Results for this [facility] procedure are i n the results section. MAGNESIUM LEVEL Routine 08/20/2021 9:23 AM Result s for this [facility] procedure are i n the results section. COMPREHENSIVE METABOLIC Routine 08/20/2021 9:23 AM PANEL [facility] COMPLETE BLOOD COUNT W/ Routine 08/20/2021 9:23 AM DIFFERENTIAL [facility] FRACTIONATED BILIRUBIN Routine 07/24/2021 2:10 PM Squamous olga l Results for this CDT carcinoma, NOS procedure are in of lower lobe, the results lung <Left> section. 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 ASPARTATE AMINOTRANSFERASE Routine 07/24/2021 2:10 Squamous c ell Results for this PM CDT carcinoma, NOS procedure are in of lower lobe, the results lung <Left> section. ALANINE AMINOTRANSFERASE Routine 07/24/2021 2:10 PM Squamous c ell Results for this CDT carcinoma, NOS procedure are in of lower lobe, the results lung <Left> section. ALKALINE PHOSPHATASE Routine 07/24/2021 2:10 PM Squamous cell Results for this CDT carcinoma, NOS procedure are in of lower lobe, the results lung <Left> section. ALBUMIN LEVEL Routine 07/24/2021 2:10 PM Squamous cell Results for this CDT carcinoma, NOS procedure are in of lower lobe, the results lung <Left> section. CALCIUM LEVEL TOTAL Routine 07/24/2021 2:10 PM Squamous cell R esults for this CDT carcinoma, NOS procedure are in of lower lobe, the results lung <Left> section. .GLOMERULAR FILTRATION RATE Routine 07/24/2021 2:10 PM Squamou s cell Results for this CDT carcinoma, NOS procedure are in of lower lobe, the results lung <Left> section. SERUM CREATININE Routine 07/24/2021 2:10 PM Squamous cell Resu lts for this CDT carcinoma, NOS procedure are in of lower lobe, the results lung <Left> section. ELECTROLYTE PANEL Routine 07/24/2021 2:10 PM Squamous cell Res ults for this CDT carcinoma, NOS procedure are in of lower lobe, the results lung <Left> section. BLOOD UREA NITROGEN Routine 07/24/2021 2:10 PM Squamous cell R esults for this CDT carcinoma, NOS procedure are in of lower lobe, the results lung <Left> section. GLUCOSE LEVEL Routine 07/24/2021 2:10 PM Squamous cell Results for this CDT carcinoma, NOS procedure are in of lower lobe, the results lung <Left> section. MANUAL DIFFERENTIAL Routine 07/24/2021 2:10 PM Squamous cell R esults for this CDT carcinoma, NOS procedure are in of lower lobe, the results lung <Left> section. Results CBC Routine 07/24/2021 2:10 PM Squamous cell Results for this CDT carcinoma, NOS procedure are in of lower lobe, the results lung <Left> section. MAGNESIUM LEVEL Routine 07/24/2021 2:10 PM Squamous cell Resul ts for this CDT carcinoma, NOS procedure are in of lower lobe, the results lung <Left> section. COMPREHENSIVE METABOLIC Routine 07/24/2021 2:10 PM Squamous ce ll PANEL CDT carcinoma, NOS of lower lobe, lung <Left> COMPLETE BLOOD COUNT W/ Routine 07/24/2021 2:10 PM Squamous ce ll DIFFERENTIAL CDT carcinoma, NOS of lower lobe, lung <Left> CT CHEST ABDOMEN W CONTRAST Routine 06/25/2021 11:10 Squamous cell Results for this AM CDT carcinoma of procedure are i n lower lobe of the results left lung section. FRACTIONATED BILIRUBIN Routine 06/25/2021 8:36 AM Squamous olga l Results for this CDT carcinoma of procedure are i n lower lobe of the results left lung section. TOTAL PROTEIN Routine 06/25/2021 8:36 AM Squamous cell Results for this CDT carcinoma of procedure are i n lower lobe of the results left lung section. ASPARTATE AMINOTRANSFERASE Routine 06/25/2021 8:36 AM Squamous cell Results for this CDT carcinoma of procedure are i n lower lobe of the results left lung section. ALANINE AMINOTRANSFERASE Routine 06/25/2021 8:36 AM Squamous c ell Results for this CDT carcinoma of procedure are i n lower lobe of the results left lung section. ALKALINE PHOSPHATASE Routine 06/25/2021 8:36 AM Squamous cell Results for this CDT carcinoma of procedure are i n lower lobe of the results left lung section. ALBUMIN LEVEL Routine 06/25/2021 8:36 AM Squamous cell Results for this CDT carcinoma of procedure are i n lower lobe of the results left lung section. CALCIUM LEVEL TOTAL Routine 06/25/2021 8:36 AM Squamous cell R esults for this CDT carcinoma of procedure are i n lower lobe of the results left lung section. .GLOMERULAR FILTRATION RATE Routine 06/25/2021 8:36 AM Squamou s cell Results for this CDT carcinoma of procedure are i n lower lobe of the results left lung section. SERUM CREATININE Routine 06/25/2021 8:36 AM Squamous cell Resu lts for this CDT carcinoma of procedure are i n lower lobe of the results left lung section. ELECTROLYTE PANEL Routine 06/25/2021 8:36 AM Squamous cell Res ults for this CDT carcinoma of procedure are i n lower lobe of the results left lung section. BLOOD UREA NITROGEN Routine 06/25/2021 8:36 AM Squamous cell R esults for this CDT carcinoma of procedure are i n lower lobe of the results left lung section. GLUCOSE LEVEL Routine 06/25/2021 8:36 AM Squamous cell Results for this CDT carcinoma of procedure are i n lower lobe of the results left lung section. MANUAL DIFFERENTIAL Routine 06/25/2021 8:36 AM Squamous cell R esults for this CDT carcinoma of procedure are i n lower lobe of the results left lung section. Results CBC Routine 06/25/2021 8:36 AM Squamous cell Results for this CDT carcinoma of procedure are i n lower lobe of the results left lung section. FREE THYROXINE Routine 06/25/2021 8:36 AM Squamous cell Result s for this CDT carcinoma of procedure are i n lower lobe of the results left lung section. THYROID STIMULATING HORMONE Routine 06/25/2021 8:36 AM Squamou s cell Results for this CDT carcinoma of procedure are i n lower lobe of the results left lung section. MAGNESIUM LEVEL Routine 06/25/2021 8:36 AM Squamous cell Resul ts for this CDT carcinoma of procedure are i n lower lobe of the results left lung section. 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 athologist Signature Creatinine 1.29 (H) 0.67 - 1.17 CROWDER mg/dL Comment: Testing performed at [facility], [address], [place] [address] Specimen Anatomical Collection Method Collection Time Receive d Time (Source) Location / / Volume Laterality Blood 04/14/2022 10:19 04/14/2022 AM CDT 10:59 AM CDT Narrative CROWDER - 04/14/2022 11:30 AM CDT Within 72 hours prior to each dose. Salazar Gay MD LAB BLOOD ORDERABLES Performing Organization Address City/State/ZIP Code Ph[place] [facility] [place] [address] [place] [address] (ABNORMAL) .CBC (04/14/2022 10:19 AM CDT)Only the most recent of15 resultswithin the time period is included. athologist Signature WBC 10.0 4.0 - 11.0 CROWDER K/uL Comment: All components of the CBC perfo rmed at [facility], [address] [place] [address] 77 33 RBC 4.67 4.50 - 6.00 M/uL CROWDER Comment: All components of the CBC perfo rmed at [facility], [address] [place] [address], [place] 77 3 Hgb 11.8 (L) 14.0 - 18.0 gm/dL CROWDER Comment: As part of CBC or as an individ ual orderable testing performed at [facility], [address] [place] [address] Hct 39.5 (L) 40.0 - 54.0 % CROWDER Comment: As part of CBC testing performe d at [facility], [address] [place], [place] [address] MCV 85 82 - 98 fL CROWDER Comment: As part of CBC testing performe d at [facility], [address] [place] [address] MCH 25.3 (L) 27.0 - 31.0 pg CROWDER Comment: As part of CBC testing performe d at [facility], [address] [place] [address] MCHC 29.9 (L) 31.0 - 36.0 gm/dL CROWDER Comment: As part of CBC testing performe d at [facility], [address] [place] [address] RDW-SD 64.4 (H) 35.1 - 46.3 fL CROWDER Comment: As part of CBC testing performe d at [facility], [address] [place], [place] [id number] RDW-CV 21.0 (H) 12.0 - 15.5 % CROWDER Comment: As part of CBC testing performe d at [facility], [address] [place] [address], [place] [address] Platelet count 201 140 - 440 K/uL [facility] Comment: As part of CBC or an individual orderable testing performed at [facility], [address] [place] [address] MPV 8.4 4.0 - 10.4 fL CROWDER Comment: As part of CBC testing performe d at [facility], [address] [place] [address], [place] [address] Specimen Anatomical Collection Method Collection Time Receive d Time (Source) Location / / Volume Laterality Blood 04/14/2022 10:19 04/14/2022 AM CDT 10:59 AM CDT Narrative CROWDER - 04/14/2022 11:17 AM CDT Within 72 hours prior to each dose. Salazar Gay MD LAB BLOOD ORDERABLES Performing Organization Address City/State/ZIP Code Phon e Number [place], [place] [address] [place] [address] (ABNORMAL) Glomerular Filtration Rate (04/14/2022 10:19 AM CDT)Only the most recent of15 resultswithin the time period is included. P athologist Signature eGFR-AA 58 (L) >=60 CROWDER mL/min/1.73 sq. m Comment: Normal eGFR >= 60 mL/min/1.73 m2 Note: The eGFR is calculated using the C KD-EPI equation. The eGFR declines with age. eGFR <60 mL/min/1.73 m2 is considered as "decreased". This equation should only be used for patients 18 and older. According to the National [employer] ion's Kidney Disease Outcome Quality Initiative (KDOQI) classification and 2012 Kidney Disease Improving Global Outcomes (KDIGO) Clinical Practice Guideline, the stage of CKD should be categorized based on estimated GFR. Stage Description GFR mL/min/1. 73 m2 1 Normal or high GFR >=90 2 Mildly decreased GFR 60-89 3a Mildly to moderately decreased GFR 45-59 3b Moderately to severely decreased GFR 30-44 4 Severely decreased GFR 15-29 5 Kidney failure <15 Testing performed at [facility], [address] [place] [address] eGFR-GOLDIE 50 (L) >=60 mL/min/1.73 sq. m CROWDER Comment: Normal eGFR >= 60 mL/min/1.73 m2 Note: The eGFR is calculated using the C KD-EPI equation. The eGFR declines with age. eGFR <60 mL/min/1.73 m2 is considered as "decreased". This equation should only be used for patients 18 and older. According to the National [employer] ion's Kidney Disease Outcome Quality Initiative (KDOQI) classification and 2012 Kidney Disease Improving Global Outcomes (KDIGO) Clinical Practice Guideline, the stage of CKD should be categorized based on estimated GFR. Stage Description GFR mL/min/1. 73 m2 1 Normal or high GFR >=90 2 Mildly decreased GFR 60-89 3a Mildly to moderately decreased GFR 45-59 3b Moderately to severely decreased GFR 30-44 4 Severely decreased GFR 15-29 5 Kidney failure <15 Testing performed at [facility], [address] [place] [address] Specimen Anatomical Collection Method Collection Time Receive d Time (Source) Location / / Volume Laterality Blood 04/14/2022 10:19 04/14/2022 AM CDT 10:59 AM CDT [facility] - 04/14/2022 11:30 AM CDT Within 72 hours prior to each dose. Salazar Gay MD LAB BLOOD ORDERABLES Performing Organization Address City/State/ZIP Code Phon e Number [facility] [place] [address] [place] [address] Fractionated Bilirubin (04/14/2022 10:19 AM CDT)Only the most recent of13 resultswithin the time period is included. athologist Signature Bili Total 1.2 <=1.2 mg/dL CROWDER Comment: Indocyanine Green (ICG) may cause falsel y elevated bilirubin results. Total and direct bilirubin must not be measured from samples containing indocyanine green. False elevation of total bilirubin can b e seen in patients with IgG concentrations above 28 g/L. Testing performed at [facility], [address] [place] [address], [place] [address] Bili Direct 0.3 <=0.3 mg/dL CROWDER Comment: Indocyanine Green (ICG) may cause falsel y elevated bilirubin results. Total and direct bilirubin must not be measured from samples containing indocyanine green. Testing performed at [facility], [address] [place] [address], [place] [address] Bili Indirect 0.9 0.0 - 0.9 mg/dL [facility] Y Comment: Testing performed at [facility], [address] [place] [address], [place] [address] Specimen Anatomical Collection Method Collection Time Receive d Time (Source) Location / / Volume Laterality Blood 04/14/2022 10:19 04/14/2022 AM CDT 10:59 AM CDT Narrative CROWDER - 04/14/2022 11:30 AM CDT Within 72 hours prior to each dose. Salazar Gay MD LAB BLOOD ORDERABLES Performing Organization Address City/State/ZIP Code [place] [address] [place] [address] (ABNORMAL) Differential (04/14/2022 10:19 AM CDT)Only the most recent of15 resultswithin the time period is included. athologist Signature Neutrophil % 78.8 (H) 42.0 - CROWDER 66.0 % Comment: All components of the Different ial performed at [facility], [address] [place] [address] Lymphocyte % 11.1 (L) 24.0 - 44.0 % CROWDER Comment: As part of the Differential derek ting performed at [facility], [address] [place] [address] Monocyte % 8.4 (H) 2.0 - 7.0 % CROWDER Comment: As part of the Differential derek ting performed at [facility], [address] [place] [address] Eosinophil % 1.3 1.0 - 4.0 % CROWDER Comment: As part of the Differential derek ting performed at [facility], [address] [place] [address] Basophil % 0.3 0.0 - 1.0 % CROWDER Comment: As part of the Differential derek ting performed at [facility], [address] [place] [address] IGRE % 0.1 0.0 - 0.4 % CROWDER Comment: IGRE % count includes Metamyelocytes, My elocytes, and Promyelocytes. As part of the Differential testing perf ormed at [facility], [address] [place] [address] Neutrophil Abs 7.92 (H) 1.70 - 7.30 K/uL [facility] Comment: As part of the Differential derek ting performed at [facility], [address] [place] [address] Lymphocyte Abs 1.11 1.00 - 4.80 K/uL [facility] Comment: As part of the Differential derek ting performed at [facility], [address] [place] [address] Monocyte Abs 0.84 (H) 0.08 - 0.70 K/uL [facility] Comment: As part of the Differential derek ting performed at [facility], [address] [place] [address] Eosinophil Abs 0.13 0.04 - 0.40 K/uL [facility] Comment: As part of the Differential derek ting performed at [facility], [address] [place] [address] Basophil Abs 0.03 0.00 - 0.10 K/uL [facility] Comment: As part of the Differential derek ting performed at [facility], [address] [place] [address] IG Abs 0.01 0.00 - 0.04 K/uL CROWDER Comment: As part of the Differential derek ting performed at [facility], [address] [place] [address] Specimen Anatomical Collection Method Collection Time Receive d Time (Source) Location / / Volume Laterality Blood 04/14/2022 10:19 04/14/2022 AM CDT 10:59 AM CDT [facility] - 04/14/2022 11:09 AM CDT Within 72 hours prior to each dose. Salazar Gay MD LAB BLOOD ORDERABLES Performing Organization Address City/State/ZIP Code Phon e Number [place], [place] [phone] [place] [address] (ABNORMAL) BUN (04/14/2022 10:19 AM CDT)Only the most recent of15 resultswithin the time period is included. P athologist Signature BUN 30 (H) 6 - 23 mg/dL CROWDER Comment: Testing performed at [facility], [address] [place] [address] Specimen Anatomical Collection Method Collection Time Receive d Time (Source) Location / / Volume Laterality Blood 04/14/2022 10:19 04/14/2022 AM CDT 10:59 AM CDT [facility] - 04/14/2022 11:30 AM CDT Within 72 hours prior to each dose. Salazar Gay MD LAB BLOOD ORDERABLES Performing Organization Address City/[facility]/ZIP Code Phon e [address] (ABNORMAL) ALT (04/14/2022 10:19 AM CDT)Only the most recent of13 resultswithin the time period is included. P athologist Signature ALT 45 (H) <=41 U/L CROWDER Comment: Testing performed at [facility], [address] [place] [address] Specimen Anatomical Collection Method Collection Time Receive d Time (Source) Location / / Volume Laterality Blood 04/14/2022 10:19 04/14/2022 AM CDT 10:59 AM CDT [facility] - 04/14/2022 11:30 AM CDT Within 72 hours prior to each dose. Salazar Gay MD LAB BLOOD ORDERABLES Performing Organization Address City/State/ZIP Code Phon e Number [address] Aspartate Aminotransferase (04/14/2022 10:19 AM CDT)Only the most recent of13 resultswithin the time period is included. [facility] AST 39 <=40 U/L CROWDER Comment: Testing performed at [facility], [address] [place] [address] Specimen Anatomical Collection Method Collection Time Receive d Time (Source) Location / / Volume Laterality Blood 04/14/2022 10:19 04/14/2022 AM CDT 10:59 AM CDT [facility] - 04/14/2022 11:30 AM CDT Within 72 hours prior to each dose. Salazar Gay MD LAB BLOOD ORDERABLES Performing Organization Address City/State/ZIP [place] [address] [place] [address] TSH (04/14/2022 10:19 AM CDT)Only the most recent of11 resultswithin the time period is included. [facility] TSH 2.99 0.27 - 4.20 CROWDER mcunit/mL Comment: Testing performed at [facility], [address] [place] [address] Specimen Anatomical Collection Method Collection Time Receive d Time (Source) Location / / Volume Laterality Blood 04/14/2022 10:19 04/14/2022 AM CDT 10:59 AM CDT [facility] - 04/14/2022 12:02 PM CDT Within 72 hours prior to each dose. Salazar Gay MD LAB BLOOD ORDERABLES Performing Organization Address City/[facility] [place] [address] [place] [address] T4, free (04/14/2022 10:19 AM CDT)Only the most recent of11 resultswithin the time period is included. [facility] T4 Free 1.40 0.93 - 1.70 CROWDER ng/dL Comment: Testing performed at [facility], [address] [place] [address] Specimen Anatomical Collection Method Collection Time Receive d Time (Source) Location / / Volume Laterality Blood 04/14/2022 10:19 04/14/2022 AM CDT 10:59 AM CDT [facility] - 04/14/2022 12:02 PM CDT Within 72 hours prior to each dose. Salazar Gay MD LAB BLOOD ORDERABLES Performing Organization Address City/[facility]/ZIP [facility] Phon e Number [address] Total Protein (04/14/2022 10:19 AM CDT)Only the most recent of13 resultswithin the time period is included. P athologist Signature Total Protein 6.8 6.4 - 8.3 CROWDER g/dL Comment: Testing performed at [facility], [address] [place] [address] Specimen Anatomical Collection Method Collection Time Receive d Time (Source) Location / / Volume Laterality Blood 04/14/2022 10:19 04/14/2022 AM CDT 10:59 AM CDT [facility] - 04/14/2022 11:30 AM CDT Within 72 hours prior to each dose. Salazar Gay MD LAB BLOOD ORDERABLES Performing Organization Address City/[facility] Phon e Number [place], [place] [phone] [place] [address] Alkaline Phosphatase (04/14/2022 10:19 AM CDT)Only the most recent of13 results within the time period is included. P athologist Signature Alk Phos 118 40 - 129 U/L CROWDER Comment: Testing performed at [facility], [address] [place] [address] Specimen Anatomical Collection Method Collection Time Receive d Time (Source) Location / / Volume Laterality Blood 04/14/2022 10:19 04/14/2022 AM CDT 10:59 AM CDT [facility] - 04/14/2022 11:30 AM CDT Within 72 hours prior to each dose. Salazar Gay MD LAB BLOOD ORDERABLES Performing Organization Address City/State/ZIP [place] [address] [place] [address] Magnesium (04/14/2022 10:19 AM CDT)Only the most recent of14 resultswithin the time period is included. athologist Signature Magnesium 2.0 1.6 - 2.6 CROWDER mg/dL Comment: Testing performed at [facility], [address] [place] [address] Specimen Anatomical Collection Method Collection Time Receive d Time (Source) Location / / Volume Laterality Blood 04/14/2022 10:19 04/14/2022 AM CDT 10:59 AM CDT Narrative CROWDER - 04/14/2022 11:30 AM CDT Do Labs at [place] on 05/20/21 Salazar Gay MD LAB BLOOD ORDERABLES Performing Organization Address City/State/ZIP Code Phon e Number [place], [place] [phone] [place] [address] Glucose Level (04/14/2022 10:19 AM CDT)Only the most recent of15 resultswithin the time period is included. athologist Signature Glucose Level 99 70 - 99 CROWDER mg/dL Comment: Effective 04/30/16, the glucose reference intervals have been updated based on [place] [employer] guidelines (Standards of Medical Care in Diabetes 2016. Diabetes Care 2016; 39: S13-S22). Fasting blood glucose: Normal: 70-99 mg/dL Impaired fasting glucose (increased risk for diabetes or pre-diabetes): 100- 125 mg/dL Diabetes mellitus: >/=126 mg/dL Random blood glucose: Normal: 70-199 mg/dL Note: Random glucose >100 mg/dL is assoc iated with increased risk for diabetes [facility], [address] [place] [address] Specimen Anatomical Collection Method Collection Time Receive d Time (Source) Location / / Volume Laterality Blood 04/14/2022 10:19 04/14/2022 AM CDT 10:59 AM CDT Narrative CROWDER - 04/14/2022 11:30 AM CDT Within 72 hours prior to each dose. Salazar Gay MD LAB BLOOD ORDERABLES Performing Organization Address City/State/ZIP Code Phon e Number [place], [place] [phone] [place] [address] Calcium Level (04/14/2022 10:19 AM CDT)Only the most recent of15 resultswithin the time period is included. athologist Signature Calcium Lvl 10.0 8.4 - 10.2 CROWDER mg/dL Comment: Testing performed at [facility], [address] [place] [address] Specimen Anatomical Collection Method Collection Time Receive d Time (Source) Location / / Volume Laterality Blood 04/14/2022 10:19 04/14/2022 AM CDT 10:59 AM CDT [facility] - 04/14/2022 11:30 AM CDT Within 72 hours prior to each dose. Salazar Gay MD LAB BLOOD ORDERABLES Performing Organization Address City/[facility]/ZIP [place] [address] [place] [address] Albumin Level (04/14/2022 10:19 AM CDT)Only the most recent of13 resultswithin the time period is included. athologist Signature Albumin Lvl 3.8 3.5 - 5.2 CROWDER gm/dL Comment: Testing performed at [facility], [address] [place] [address] Specimen Anatomical Collection Method Collection Time Receive d Time (Source) Location / / Volume Laterality Blood 04/14/2022 10:19 04/14/2022 AM CDT 10:59 AM CDT [facility] - 04/14/2022 11:30 AM CDT Within 72 hours prior to each dose. Salazar Gay MD LAB BLOOD ORDERABLES Performing Organization Address City/State/ZIP Code Phon e Number [place], [place] [phone] [place] [address] (ABNORMAL) Electrolyte Panel (04/14/2022 10:19 AM CDT)Only the most recent of15 resultswithin the time period is included. athologist Signature Sodium Lvl 134 (L) 136 - 145 CROWDER mEq/L Comment: Testing performed at [facility], [address] [place] [address] Potassium Lvl 4.4 3.5 - 5.1 mEq/L [facility] Comment: Testing performed at [facility], [address] [place] [address] Chloride 99 98 - 107 mEq/L CROWDER Comment: Testing performed at [facility], [address] [place] [address] CO2 27 22 - 29 mEq/L CROWDER Comment: Testing performed at [facility], [address] [place] [address] Anion Gap 8 4 - 14 mEq/L CROWDER Comment: Testing performed at [facility], [address] [place] [address] Specimen Anatomical Collection Method Collection Time Receive d Time (Source) Location / / Volume Laterality Blood 04/14/2022 10:19 04/14/2022 AM CDT 10:59 AM CDT Narrative CROWDER - 04/14/2022 11:30 AM CDT Within 72 hours prior to each dose. Salazar Gay MD LAB BLOOD ORDERABLES Performing Organization Address City/State/ZIP Code Phon e Number [place], [place] [phone] [place] [address] Cortisol, Total (04/08/2022 11:08 AM CDT)Only the most recent of3 resultswithin the time period is included. athologist Signature Cortisol 14.20 4.80 - [place] [facility] 19.50 [facility] mcg/dL Comment: Cortisol reference intervals are establi shed for the morning hours from 6-10 am and afternoon hours 4-8 pm. Due to circadian rhythm of cortisol levels in serum and plasma, the sample collection time must be noted. Caution should be exercised when interpreting such values and done in con junction with clinical context. Serum Cortisol Reference Ranges: Morning (6-10am) (4.8 - 19.5) Afternoon (4-8pm) (2.5 - 11.9) Specimen Anatomical Collection Method Collection Time Receive d Time (Source) Location / / Volume Laterality Blood 04/08/2022 11:08 04/08/2022 AM CDT 11:25 AM CDT Elvin Diez MD LAB BLOOD ORDERABLES Performing Organization Address City/[facility]/ZIP Code Phon e Number [facility] Unless otherwise noted, [address] all lab tests performed by: Division of Pathology and Laboratory Medicine [address] Phosphorus Level (04/08/2022 2:33 AM CDT)Only the most recent of3 resultswithin the time period is included. athologist Signature Phosphorus 2.6 2.5 - 4.5 [facility] mg/dL [facility] Specimen Anatomical Collection Method Collection Time Receive d Time (Source) Location / / Volume Laterality Blood 04/08/2022 2:33 AM 2 3:20 CDT AM CDT Juan F JUNIOR LAB BLOOD ORDERABLES Performing Organization Address City/[facility]/ZIP Code Phon e Number [facility] Unless otherwise noted, [address] all lab tests performed by: Division of Pathology and Laboratory Medicine [address] (ABNORMAL) Hemoglobin (04/07/2022 5:16 PM CDT) athologist Signature Hgb 10.8 (L) 14.0 - 18.0 [facility] gm/dL [facility] Specimen Anatomical Collection Method Collection Time Receive d Time (Source) Location / / Volume Laterality Blood 04/07/2022 5:16 PM 2 5:23 CDT PM CDT Chacha JUNIOR LAB BLOOD ORDERABLES Performing Organization Address City/[facility]/ZIP [facility] Phon e Number [facility] Unless otherwise noted, [address] all lab tests performed by: Division of Pathology and Laboratory Medicine [address] Sodium Urine (04/07/2022 3:26 PM CDT)Only the most recent of2 resultswithin the time period is included. athologist Signature U Sodium 76 mEq/L [facility] Comment: Normal range not available for collections less than 24 hours in duration. Specimen Anatomical Collection Method Collection Time Receive d Time (Source) Location / / Volume Laterality Urine 04/07/2022 3:26 PM 2 4:03 CDT PM CDT Parish Bass MD URINE ORDERABLES Performing Organization Address [facility] Phon e Number [facility] Unless otherwise noted, [address] all lab tests performed by: Division of Pathology and Laboratory Medicine [address] Potassium Urine (04/07/2022 3:26 PM CDT) P athologist Signature U Potassium 23 mEq/L [facility] Comment: Normal range not available for collections less than 24 hours in duration. Specimen Anatomical Collection Method Collection Time Receive d Time (Source) Location / / Volume Laterality Urine 04/07/2022 3:26 PM 2 4:03 CDT PM CDT Parish Bass MD URINE ORDERABLES Performing Organization Address [facility] Phon e Number [facility] Unless otherwise noted, [address] all lab tests performed by: Division of Pathology and Laboratory Medicine [address] Osmolality Urine (04/07/2022 3:26 PM CDT)Only the most recent of2 resultswithin the time period is included. athologist Signature U Osmolality 346 50 - 1,400 [facility] mOsm/kg H2O [facility] Comment: Urinary osmolality may vary widely, depe nding on the state of hydration. Random urine osmolality can range from 50 to 1400 mOsm/kg H2O depending on fluid intake. In individuals on average fluid intake, urine osmolality is typically 300-900 mO sm/kg H2O. Units of measure: mOsm per Kg of water. Specimen Anatomical Collection Method Collection Time Receive d Time (Source) Location / / Volume Laterality Urine 04/07/2022 3:26 PM 2 3:44 CDT PM CDT Parish Bass MD URINE ORDERABLES Performing Organization Address [facility] Phon e Number [facility] Unless otherwise noted, [address] [address] all lab tests performed by: Division of Pathology and Laboratory Medicine [facility] (ABNORMAL) Creatinine Urine (04/07/2022 3:26 PM CDT) athologist Signature U Creatinine 39.6 (L) 40.0 - [facility] 278.0 [facility] mg/dL Comment: The reference range listed is f or first morning urine collection. Specimen Anatomical Collection Method Collection Time Receive d Time (Source) Location / / Volume Laterality Urine 04/07/2022 3:26 PM 4:03 CDT PM CDT Parish Bass MD URINE ORDERABLES Performing Organization Address City/State/ZIP Code Phon e Number [facility] Unless otherwise noted, [address] all lab tests performed by: Division of Pathology and Laboratory Medicine [address] [place], [place] [address] Chloride Urine (04/07/2022 3:26 PM CDT) athologist Signature U Chloride 66 mEq/L [facility] Comment: Normal range not available for collections less than 24 hours in duration. Specimen Anatomical Collection Method Collection Time Receive d Time (Source) Location / / Volume Laterality Urine 04/07/2022 3:26 04/07/2022 4:03 PM CDT PM CDT Parish Bass MD URINE ORDERABLES Performing Organization Address City/State/ZIP Code Phon e Number [facility] CANCER Unless otherwise noted, [address] all lab tests performed by: Division of Pathology and Laboratory Medicine [address] [place], [place] [address] MRI Pituitary with and without Contrast (04/07/2022 2:05 PM CDT) Anatomical Region Laterality Modality Head Magnetic Resonance Specimen (Source) Anatomical Collection Method Collection Time Re ceived Time Location / / Volume Laterality 04/07/2022 3:06 PM CDT Impressions 04/07/2022 3:09 PM CDT No evidence of pituitary hypophysitis. Narrative 04/07/2022 3:09 PM CDT FULL RESULT: Examination: MRI PITUITARY W WO CONTRAST on 04/07/2022 2:05 PM Clinical History: Hyposmolality and/or h yponatremia Indication: headache and hyponatremia co ncern for hypophysitis Comparison: Outside CT brain 12/30/2021 a nd outside MRI brain 10/08/2018. Technique: Pre and postcontrast MR image s of the sella were obtained. Findings: The pituitary gland is seen at the time of the sella and appears homogeneously enhancing. It appears stable in size since CT brain 12/30/2021 and MRI brain 10/08/2018. The infundibulum appears thin and midline. Extensive brain parenchymal volume loss is noted. The orbits appear normal. Near complete opacification of the left maxillary sinus is again seen. Procedure Note Cindy Molina MD - 04/07/2022Formatting o f this note might be different from the original. FULL RESULT: Examination: MRI PITUITARY W WO CONTRAST on 04/07/2022 2:05 PM Clinical History: Hyposmolality and/or h yponatremia Indication: headache and hyponatremia co ncern for hypophysitis Comparison: Outside CT brain 12/30/2021 a nd outside MRI brain 10/08/2018. Technique: Pre and postcontrast MR image s of the sella were obtained. Findings: The pituitary gland is seen at the time of the sella and appears homogeneously enhancing. It appears stable in size since CT brain 12/30/2021 and MRI brain 10/08/2018. The infundibulum appears thin and midline. Extensive brain parenchymal volume loss is noted. The orbits appear normal. Near complete opacification of the left maxillary sinus is again seen. IMPRESSION: No evidence of pituitary hypophysitis. Elvin Diez MD IMG MRI ORDERABLES General Laboratory Add-On Test (04/07/2022 1:39 PM CDT)Only the most recent of2 resultswithin the time period is included. [facility] gist Method Time Signature Ordered Test Added [facility] Test Needed total [facility] Specimen Anatomical Collection Method Collection Time Receive d Time (Source) Location / / Volume Laterality Existing 04/07/2022 1:39 PM 2 1:40 CDT PM CDT Chacha JUNIOR LAB BLOOD ORDERABLES Performing Organization Address City/State/ZIP Code Phon e Number [facility] Unless otherwise noted, [address] all lab tests performed by: Division of Pathology and Laboratory Medicine [address] (ABNORMAL) ACTH (04/07/2022 10:32 AM CDT)Only the most recent of2 resultswithin the time period is included. athologist Signature ACTH 69 (H) 7 - 63 [facility] pg/mL [facility] Comment: Results greater than 1826 pg/mL may not be reliable due to matrix effect with extended dilution as it exceeds the internal medicine nurse's recommended limit. ACTH reference intervals are established for the morni ng hours from 7-10 am. Due to the circad mark rhythm of ACTH levels in plasma, the sample col lection time must be noted. Caution should be exercised when interpreting such values and done in conjunction with clinical context. Specimen Anatomical Collection Method Collection Time Receive d Time (Source) Location / / Volume Laterality Blood 04/07/2022 10:32 04/07/2022 1:57 AM CDT PM CDT Elvin Diez MD LAB BLOOD ORDERABLES Performing Organization Address City/[facility]/ZIP Code Phon e Number [facility] Unless otherwise noted, [address] all lab tests performed by: Division of Pathology and Laboratory Medicine [address] Prolactin (04/07/2022 10:32 AM CDT) [facility] Prolactin 8.6 4.0 - 15.2 [facility] ng/mL [facility] Comment: Results greater than 4700.0 ng/ mL may not be reliable due to matrix effect with extended dilution as it exceeds the internal medicine nurse s recommended limit. Caution should be e xercised when interpreting such values and done in conjunction with clinical contex t. Specimen Anatomical Collection Method Collection Time Receive d Time (Source) Location / / Volume Laterality Blood 04/07/2022 10:32 04/07/2022 AM CDT 10:48 AM CDT Elvin Diez MD LAB BLOOD ORDERABLES Performing Organization Address City/State/[facility] Phon e Number [facility] Unless otherwise noted, [address] all lab tests performed by: Division of Pathology and Laboratory Medicine [address] (ABNORMAL) Sed Rate (04/07/2022 10:32 AM CDT) athologist [facility] Sed Rate 22 (H) 0 - 9 mm/hr [facility] Comment: Corrected results called to Rosalba Mensah / Milka at 04/07/2022 1:15:38 PM CDT Corrected from 22 mm/hr [HI] on 04/07/22 14:13:51 CDT by Krys Whitlock. Corrected from 24 mm/hr [HI] on 04/07/22 13:09:03 CDT by Krys Whitlock. Specimen Anatomical Collection Method Collection Time Receive d Time (Source) Location / / Volume Laterality Blood 04/07/2022 10:32 04/07/2022 AM CDT 12:20 PM CDT Elvin Diez MD LAB BLOOD ORDERABLES Performing Organization Address City/[facility] Code Phon e Number [facility] Unless otherwise noted, [address] all lab tests performed by: Division of Pathology and Laboratory Medicine [facility]5 [employer] CRP (04/07/2022 10:32 AM CDT) [facility] CRP 9.06 mg/L [facility] Comment: Reference ranges for HS CRP assay are as follows: Reference ranges when used to assess car diac risk: <1.00 mg/L Low cardiovascular risk 1.00-3.00 mg/L Average cardiovascular risk >3.00 mg/L High cardiovascular risk. Reference ranges when used to assess inf lammatory responses: Less than or equal to 10.00 mg/L. Specimen Anatomical Collection Method Collection Time Receive d Time (Source) Location / / Volume Laterality Blood 04/07/2022 10:32 04/07/2022 AM CDT 10:48 AM CDT Elvin Diez MD LAB BLOOD ORDERABLES Performing Organization Address City/[facility]/ZIP Code Phon e Number [facility] Unless otherwise noted, [address] all lab tests performed by: Division of Pathology and Laboratory Medicine [address] [employer] Testosterone Level (04/07/2022 10:32 AM CDT) athologist [facility] Testoster Tot 324 193 - 740 [facility] ng/dL [facility] Comment: Reference Ranges: Male: Age 20 - 49 249 - 836 Age >=50 1 93 - 740 Female: Age 20 - 49 8 - 48 Age >=50 3 - 41 Specimen Anatomical Collection Method Collection Time Receive d Time (Source) Location / / Volume Laterality Blood 04/07/2022 10:32 04/07/2022 AM CDT 10:48 AM CDT Elvin Diez MD LAB BLOOD ORDERABLES Performing Organization Address City/[facility]/ZIP [facility] Phon e Number [facility] Unless otherwise noted, [address] all lab tests performed by: Division of Pathology and Laboratory Medicine [address] [place] [address] LH (04/07/2022 10:32 AM CDT) athologist Signature LH 7.8 1.7 - 8.6 [facility] Comment: Female Luteinizing Hormone Reference Ran ges: LOW HIGH Follicular 2.4 12.6 Ovulation 14.0 95.6 Luteal 1.0 11.4 Postmenopause 7.7 58.5 Specimen Anatomical Collection Method Collection Time Receive d Time (Source) Location / / Volume Laterality Blood 04/07/2022 10:32 04/07/2022 AM CDT 10:48 AM CDT Elvin Diez MD LAB BLOOD ORDERABLES Performing Organization Address [facility] Phon e Number [facility] Unless otherwise noted, [address] all lab tests performed by: Division of Pathology and Laboratory Medicine [address] [place] [address] FSH Level (04/07/2022 10:32 AM CDT) athologist Signature FSH 11.0 1.5 - 12.4 [facility] Comment: Female Follicle Stimulating Hormone Refe rence Ranges: L OW HIGH Follicular 3.5 12.5 Ovulation 4.7 21.5 Luteal 1.7 7.7 Postmenopause 25.8 134.8 Specimen Anatomical Collection Method Collection Time Receive d Time (Source) Location / / Volume Laterality Blood 04/07/2022 10:32 04/07/2022 AM CDT 10:48 AM CDT Elvin Diez MD LAB BLOOD ORDERABLES Performing Organization Address City/State/ZIP Code Phon e Number [facility] Unless otherwise noted, [address] all lab tests performed by: Division of Pathology and Laboratory Medicine [address] [facility] (ABNORMAL) Sodium Level (04/07/2022 1:56 AM CDT) P athologist Signature Sodium Lvl 127 (L) 136 - 145 [facility] mEq/L [facility] Specimen Anatomical Collection Method Collection Time Receive d Time (Source) Location / / Volume Laterality Blood 04/07/2022 1:56 AM 2 2:04 CDT AM CDT Juan F JUNIOR LAB BLOOD ORDERABLES Performing Organization Address City/State/ZIP Code Phon e Number [facility] Unless otherwise noted, [address] all lab tests performed by: Division of Pathology and Laboratory Medicine [address] [facility] [address] Head without Contrast (04/07/2022 12:53 AM CDT) Anatomical Region Laterality Modality Head Computed Tomography Specimen (Source) Anatomical Collection Method Collection Time Re ceived Time Location / / Volume Laterality 04/07/2022 1:15 AM CDT Impressions 04/07/2022 8:44 AM CDT 1. No acute intracranial abnormality. 2. New left frontal and ethmoid sinusi tis with blockage of the ipsilateral frontal sinus drainage pathway. Unchanged left maxillary sinusitis with blockage of the ostiomeatal complex and hyperdense ma terial. Hyperdense material extends to t he ethmoid sinus. This can be in keeping with sinusitis, or less likely fungal sinusitis if in the appropriate clinical context. I personally reviewed these image(s) joan saha with the resident's/fellow's interpretations, certify that if a procedure was performed I was physically present, and agree with the final report. 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 Patient also with history of invasive urothelial carcinoma of the bladder diagnosed 02/19/2022. INDICATION: Headache, new onset, headach e with hyponatremia Hyposmolality and/or hyponatremia. COMPARISON: Head CT 12/22/2021. TECHNIQUE: CT scan of the brain was perf ormed without intravenous contrast as per departmental protocol. FINDINGS: Scalp/Skull: No abnormalities. Brain sulci: Appropriate for age. Ventricles: Normal in size and configura tion. No hydrocephalus. Extra-axial: No masses or fluid collecti ons. 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 No mass, hemorrhage, or acute infarct. Dural sinuses: Normal in density. Sellar/Suprasellar region: No abnormalit ies. Skull base and Craniocervical junction:N o bone abnormalities. Patent foramen magnum. Incidental findings: * Complete opacification of the left m axillary sinus with hyperdense material and blockage of the ostiomeatal complex is unchanged. There is erosion of the lacrimal duct and predominantly medial wall the maxillary sinus. * New mild opacification of the left f rontal sinus and moderate to severe opacification of the ethmoid sinus. Hyperdense material extends to the ethmoid sinus. The left frontal sinus drainage pathway is blocked. * Stable small right maxillary mucus r etention cyst. * Bilateral lens replacement. * Right superior neck calcifications l ikely related to the carotid bifurcation. Procedure Note Cindy Molina MD - 04/07/2022Formatting o f this note might be different from the original. 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 Patient also with history of invasive urothelial carcinoma of the bladder diagnosed 02/19/2022. INDICATION: Headache, new onset, headach e with hyponatremia Hyposmolality and/or hyponatremia. COMPARISON: Head CT 12/22/2021. TECHNIQUE: CT scan of the brain was perf ormed without intravenous contrast as per departmental protocol. FINDINGS: Scalp/Skull: No abnormalities. Brain sulci: Appropriate for age. Ventricles: Normal in size and configura tion. No hydrocephalus. Extra-axial: No masses or fluid collecti ons. 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 No mass, hemorrhage, or acute infarct. Dural sinuses: Normal in density. Sellar/Suprasellar region: No abnormalit ies. Skull base and Craniocervical junction:N o bone abnormalities. Patent foramen magnum. Incidental findings: * Complete opacification of the left max illary sinus with hyperdense material and blockage of the ostiomeatal complex is unchanged. There is erosion of the lacrimal duct and predominantly medial wall the maxillary sinus. * New mild opacification of the left fro ntal sinus and moderate to severe opacification of the ethmoid sinus. Hyperdense material extends to the ethmoid sinus. The left frontal sinus drainage pathway is blocked. * Stable small right maxillary mucus ret ention cyst. * Bilateral lens replacement. * Right superior neck calcifications lik rafael related to the carotid bifurcation. IMPRESSION: 1. No acute intracranial abnormality. 2. New left frontal and ethmoid sinusiti s with blockage of the ipsilateral frontal sinus drainage pathway. Unchanged left maxillary sinusitis with blockage of the ostiomeatal complex and hyperdense material. Hyperdense material extends to the ethmoid sinus. This can be in keeping with sinusitis, or less likely fungal sinusitis if in the appropriate clinical context. I personally reviewed these image(s) joan saha with the resident's/fellow's interpretations, certify that if a procedure was performed I was physically present, and agree with the final report. Juan F JUNIOR IMG CT ORDERABLES (ABNORMAL) Osmolality (04/06/2022 9:18 PM CDT) athologist Signature Osmolality 269 (L) 275 - 300 [facility] mOsm/kg H2O [facility] Comment: Units in mOsm per kg of water. Specimen Anatomical Collection Method Collection Time Receive d Time (Source) Location / / Volume Laterality Blood 04/06/2022 9:18 PM 9:24 CDT PM CDT Derik Winslow MD LAB BLOOD ORDERABLES Performing Organization Address City/State/ZIP Code Phon e Number [facility] Unless otherwise noted, [place] [address] CENTER all lab tests performed by: Division of Pathology and Laboratory Medicine [address] COVID-19 (SARS-CoV-2)Asymptomatic-LT (04/06/2022 9:05 PM CDT) Patholo gist Method Time Signature COVID19 Not Detected Not Detected JACOB REICH (SARS-CoV-2) [facility] COVID19 SARS Inpatient JACOB REICH Indication Admission [facility] Covid 19 See Note JACOB REICH Comment [facility] Comment: The antwon SARS-CoV-2 nucleic acid test f or use on the antwon Leydi System is a real-time RT-PCR assay intended for the qualitative detection of SARS-CoV-2 (COVID-19) viral RNA in nasopharyngeal swabs from either individuals suspected of COVID-1 9 by their healthcare provider or from any individu al, including individuals without symptoms or other reasons to suspect COVID-19. A fact sheet for patients provided by the internal medicine nurse ([employer]) can be reviewed at: https://www.fda.gov/media/905055/downloa d. A fact sheet for Health Care providers is provided by the internal medicine nurse ([employer]) and can be reviewed at: https://www.[employer].gov/media/839516/download Results must be interpreted within the c ontext of all relevant clinical and laboratory findings and should not form the sole basis for a diagnosis or treatment decision. Positive results do not rule out bacterial infection or co- infection with other viruses. Negative results do not preclud e SARS-CoV-2 infection and must be combined with clinical observations, patient history, and/or epidemiological information. This assay has been authorized by the A for use only under Emergency Use Authorization (EUA) in laboratories that have been CLIA-certified to perform moderate-complexity and high-complexity tests. The Microbiology Laboratory at [facility], CLIA Accreditation #[id number] a tn CAP Accreditation #[id number], verified the performance characteristics of this assay. Internal controls are used to monitor all stages of the test process. Specimen (Source) Anatomical Collection Method Collection Time Re ceived Time Location / / Volume Laterality Nasopharyngeal Swab 04/06/2022 9:05 04/06 PM CDT 9:13 PM CDT Derik Winslow MD MICROBIOLOGY - GENERAL ORDER HOSSEIN Performing Organization Address City/State/ZIP Code Phon e Number [facility] Unless otherwise noted, [place], [place] [id number] [place] [address] all lab tests performed by: Division of Pathology and Laboratory Medicine [address] (ABNORMAL) POC Chem 8 without Hemoglobin and Hematocrit (04/06/2022 8:22 PM CDT) P athologist Signature POC NA 123 (L) 138 - 146 [facility] mEq/L POC K 4.3 3.5 - 4.9 [facility] mEq/L Comment: Method description: The i-STAT is an marielle lyzer used for in vitro quantification of various analytes in whole blood. The device uses a single disposable cartridge which contains microfabricated sensors, a calibration solution, fluidics system, and a waste chamber. Each test cartridge contains ch emically sensitive biosensors on a silicon chip that are configured to perform specific tests. The microfabricated sensors measure analyte concentration by an electrochemical assay. POC CL 88 (L) 98 - 109 mEq/L [facility] POC VTCO2 27 24 - 29 mEq/L [facility] POC Anion Gap 13 10 - 20 mmol/L [facility] POC BUN 45 (H) 8 - 26 mg/dL [facility] POC Crea 1.1 0.6 - 1.3 mg/dL [facility] Comment: Medications, especially hydroxyurea or s upplements, such as ascorbate, can interfere with test results causing a falsely and significantly higher result than expected. If a problem is suspected with a patient's result, a sample should be sent to the laboratory for confirmatory testing. Method description: The i-STAT is an marielle lyzer used for in vitro quantification of various analytes in whole blood. The device uses a single disposable cartridge which contains microfabricated sensors, a calibration solution, fluidics system, and a waste chamber. Each test cartridge contains ch emically sensitive biosensors on a silicon chip that are configured to perform specific tests. The microfabricated sensors measure analyte concentration by an electrochemical assay. POC eGFR-AA 71 >=60 mL/min/1.73 m2 POC [facility] Comment: Normal eGFR >= 60 mL/min/1.73 m2 The eGFR is calculated using the CKD-EPI equation. The eGFR declines with age. eGFR <60 mL/min/1.73 m2 is considered as "decreased" This equation should only be used for patients 18 and older. According to the National [employer] ion's Kidney Disease Outcome Quality Initiative (KDOQI) classification and 2012 Kidney Disease Improving Global Outcomes (KDIGO) Clinical Practice Guideline, the stage of CKD should be categorized based on estimated GFR. Stage Description GFR mL/min/1.73 m2 1 Kidney damage with normal or high GFR >=90 2 Kidney damage with mild decrease in GF R 60-89 3a Mild to moderate decrease in GFR 45-59 3b Moderate to severe decrease in GFR 30-44 4 Severe decrease in GFR 15-29 5 Kidney failure <15 (or dialysis) POC eGFR-GOLDIE 61 >=60 mL/min/1.73 m2 POC [facility] Comment: Normal eGFR >= 60 mL/min/1.73 m2 The eGFR is calculated using the CKD-EPI equation. The eGFR declines with age. eGFR <60 mL/min/1.73 m2 is considered as "decreased" This equation should only be used for patients 18 and older. According to the National [employer] ion's Kidney Disease Outcome Quality Initiative (KDOQI) classification and 2012 Kidney Disease Improving Global Outcomes (KDIGO) Clinical Practice Guideline, the stage of CKD should be categorized based on estimated GFR. Stage Description GFR mL/min/1.73 m2 1 Kidney damage with normal or high GFR >=90 2 Kidney damage with mild decrease in GF R 60-89 3a Mild to moderate decrease in GFR 45-59 3b Moderate to severe decrease in GFR 30-44 4 Severe decrease in GFR 15-29 5 Kidney failure <15 (or dialysis) POC Glucose 89 70 - 99 mg/dL [facility] Comment: Medications, especially hydroxy urea, can interfere with test results causing a falsely and significantly higher resul t than expected. If a problem is suspected with a patient's result, a sample should be sent to the laboratory for confirmatory testing. POC Ion Ca 1.18 1.12 - 1.32 mmol/L POC [facility] POC Sample Type Venous POC [facility] POC Clean Dev Yes POC [facility] Performing Lab [facility] POC [facility] R Comment: [facility], [facility] [facility], [place] [address]; Lab Direct or: Brandi Nguyen MD Specimen Anatomical Collection Method Collection Time Receive d Time (Source) Location / / Volume Laterality Blood 04/06/2022 8:22 PM 8:22 CDT PM CDT Derik Winslow MD POINT OF CARE TEST ORDERABLE S Performing Organization Address City/State/ZIP Code Phon e Number POC [facility] (ABNORMAL) Urinalysis with Microscopic (04/06/2022 6:18 PM CDT)Only the most recent of3 resultswithin the time period is included. athologist Signature UA WBC NOT SEEN 0 - 2 /HPF [facility] UA RBC >182 (H) 0 - 2 /HPF [facility] UA Mucous NOT SEEN Not [facility] Seen-Trace [facility] /HPF UA Bacteria NOT SEEN NOT SEEN [facility] UA Squam Epi NOT SEEN None-Occas [facility] ional /[facility] Specimen Anatomical Collection Method Collection Time Receive d Time (Source) Location / / Volume Laterality Urine 04/06/2022 6:18 PM 2 6:32 CDT PM CDT Narrative [facility] - 2 6:47 PM CDT Some reporting parameters within the Urinalysis test have changed due to the implementation of new in strumentation in the [facility], allowi ng greater sensitivity of measurement. Urinalysis results reported by the [facility] using existing instrumentation, as well as Urinalysis t esting performed manually or by backup methodology at the [facility] will remain relatively unchanged. New reporting parameters and units will now be reported for all campuses. Radha Sanders MD URINE ORDERABLES Performing Organization Address City/[facility]/ZIP Code Phon e Number [facility] Unless otherwise noted, [address] all lab tests performed by: Division of Pathology and Laboratory Medicine [address] [place] [address] aPTT (04/06/2022 6:18 PM CDT)Only the most recent of2 resultswithin the time period is included. athologist Signature aPTT 32.7 22.8 - 34.2 [facility](s) [facility] Specimen Anatomical Collection Method Collection Time Receive d Time (Source) Location / / Volume Laterality Blood 04/06/2022 6:18 PM 2 6:31 CDT PM CDT Radha Sanders MD LAB BLOOD ORDERABLES Performing Organization Address City/[facility] Phon e Number [facility] Unless otherwise noted, [address] all lab tests performed by: Division of Pathology and Laboratory Medicine [address] (ABNORMAL) Urinalysis w/Microscopic if Indicated (04/06/2022 6:18 PM CDT)Only the most recent of3 resultswithin the time period is included. Analysis Performed At Patho logist Time Signature UA Color Red (A) [facility] UA Appear Bloody (A) Clear [facility] UA Glucose NEG NEG mg/dL [facility] UA Bili NEG NEG [facility] UA Ketones NEG NEG mg/dL [facility] UA Spec Grav 1.009 1.003 - [facility] 1.035 [facility] UA Blood Large (A) NEG [facility] Comment: Corrected from Moderate [ABN] o n 04/06/22 18:47:34 CDT by Mile Lord. UA pH 7.0 5.0 - 9.0 [facility] UA Protein 100 (A) NEG mg/dL [facility] UA Urobilinogen NEG NEG [facility] UA Nitrite NEG NEG [facility] UA Leuk Est NEG NEG [facility] Specimen Anatomical Collection Method Collection Time Receive d Time (Source) Location / / Volume Laterality Urine 04/06/2022 6:18 PM 2 6:32 CDT PM CDT Radha Sanders MD URINE ORDERABLES Performing Organization Address City/State/ZIP Code Phon e Number [facility] Unless otherwise noted, [place], [place] [id number] [place] [address] all lab tests performed by: Division of Pathology and Laboratory Medicine [facility] (ABNORMAL) Prothrombin Time with INR (04/06/2022 6:18 PM CDT)Only the most recent of3 resultswithin the time period is included. P athologist Signature PT 15.4 (H) 11.9 - 14.1 [facility](s) [facility] INR 1.22 (H) 0.89 - 1.10 [facility] Specimen Anatomical Collection Method Collection Time Receive d Time (Source) Location / / Volume Laterality Blood 04/06/2022 6:18 PM 2 6:31 CDT PM CDT Radha Sanders MD LAB BLOOD ORDERABLES Performing Organization Address City/[facility]/ZIP Code Phon e Number [facility] Unless otherwise noted, [address] all lab tests performed by: Division of Pathology and Laboratory Medicine [address] [place] [address] Urine Culture (04/06/2022 6:18 PM CDT)Only the most recent of3 resultswithin the time period is included. Component Value Ref Test Analysis Performed At Patholo gist Range Method Time Signature Final Report No growth [facility] Path Review - The results have been review ed and electronically signed by Pathologist: [facility] Urine DERIK BERUMEN MD #[id number] [facility] Specimen (Source) Anatomical Collection Method Collection Time Re ceived Time Location / / Volume Laterality Urine, Catherized 04/06/2022 6:18 022 7:41 Dan PM CDT PM CDT Radha Sanders MD MICROBIOLOGY - GENERAL ORDER HOSSEIN Performing Organization Address City/[facility] Phon e Number [facility] Unless otherwise noted, [address] all lab tests performed by: Division of Pathology and Laboratory Medicine [address] [place] [address] LDH (04/06/2022 6:18 PM CDT) athologist [facility] [place] LDH 195 135 - 225 [facility] U/L [facility] Comment: Results greater than 1651 U/L m ay not be reliable due to matrix effect with extended dilution as it exceeds the manu facturer's recommended limit. Caution should be exercised when interpreting such valu es and done in conjunction with clinical context. Specimen Anatomical Collection Method Collection Time Receive d Time (Source) Location / / Volume Laterality Blood 04/06/2022 6:18 PM 6:31 CDT PM CDT Radha Sanders MD LAB BLOOD ORDERABLES Performing Organization Address City/[facility]/ZIP [facility] Phon e Number [facility] Unless otherwise noted, [address] all lab tests performed by: Division of Pathology and Laboratory Medicine [address] [place] [address] Pathology Surgical Interpretation (03/31/2022 4:28 PM CDT)Only the most recent of2 resultswithin the time period is included. Component Value Ref Test Analysis Performed Pathologis t Range Method Time At [facility] [place] Submitted Bladder cancer 04/02/2022 [facility] Clinical [C67.9] 10:40 AM History CDT Diagnosis A. Urinary bladder, right la teral bladder wall, prior site of resection: 04/02/2022 [facility] Electronically UROTHELIAL CARCINOMA, HIGH GRADE, INVASIVE INTO LAMINA PROP FABRIZIO. 10:40 AM signed by Muscularis propria present and uninvolved by tumor. CDT Jose Enrique Richmond MD No definitive lymphovascular invasion present. on 04/02/2022 at 10:40 AM CCG Gross A: 04/02/2022 [facility] Description Urinary bladder, right later al bladder wall, prior site of resection - or 27: Multiple rubbery doyle-pink to red-brown partially cauterized fragments of tissue measuring 2.4 x 1.5 x 0.3 cm in aggregate, entirely submitted in A1- A2. GM 10:40 AM CDT Biomarker A1 04/02/2022 [facility] Block(s) 10:40 AM CDT Disclaimer "Some tests 04/02/2022 [facility] reported here may 10:40 AM have been CDT developed and performance characteristics determined by [facility]. These tests have not been specifically cleared or approved by the U.S. Food and Drug Administration. If applicable, controls were reviewed and showed appropriate reactivity." Specimen Anatomical Collection Method Collection Time Receive d Time (Source) Location / / Volume Laterality Tissue (Urinary 03/31/2022 4:28 PM 2021 7:17 Bladder) CDT AM CDT Cassie Vizcaino MD LAB PATHOLOGY ORDERABLES Performing Organization Address City/State/ZIP Code Phon e Number [facility] [address] [address] COVID-19 (SARS-CoV-2) PCR-Asymptomatic (03/28/2022 11:03 AM CDT) [facility] Method Time [facility] [place] COVID19 (SARS Not Detected Not Detected JACOB REICH CoV-2) [facility] Comment: This test is a qualitative reverse-trans criptase polymerase chain reaction (RT- PCR) developed for the Nimo ANTWON 6800 system and intended for qualitative detection of SARS CoV-2 RNA in nasopharyngeal a nd oropharyngeal swab specimens collecte d from any individuals, including those suspected o f COVID-19 by their healthcare provider, and those without symptoms or other reasons to suspect COVID-19. A fact sheet for patients provided by the internal medicine nurse ( [employer]) can be rev iewed at: https://www.fda.gov/media/184399/downloa d. A fact sheet for Health Care providers is provided by the internal medicine nurse ([employer]) and can be reviewed at: https://www.fda.gov/media/386983/download Results must be interpreted within the c ontext of all relevant clinical and laboratory findings and should not form the sole basis for a diagnosis or treatment decision. Positive results do not rule out bacterial infection or co- infection with other viruses. Negative results do not rule ou t SARS-CoV-2 and must be combined with clinical observations, patient history, and/or epidemiological information. "Presumptive Positive" results are due t o partial amplification of SARS-CoV-2 targets and indicates low amounts of virus present in the specimen at or near the limit of detection. Regardless, individuals with "Presumptive Positive" results should be managed per institutional guidelines as individuals positive for SARS-CoV-2 virus, including use of appropriate infection control protocols. Internal controls are included to assess for possible amplification inhibitors. If inhibition is detected, testing is repeated and if inhibition is confirmed the specimen is resulted as "Invalid". When an "Invalid" result occurs, it is recomm ended to wait 3 days before submitting a new spec imen for testing if clinically indicated. This assay has been approved by the FDA for use only under Emergency Use Authorization (EUA) in laboratories that have been CLIA-certified to perform moderate-complexity and high-complexity tests. The performance characteristics of this assay were verified by the Microbiology Laboratory at [facility], CLIA Accreditation #: [id number] and CAP Accreditation #: [id number]. COVID19 SARS Source FLAT IRONER Swab [facility] MD [facility]ICH[facility] COVID19 SARS Indication Pre-OR Procedure [facility] Specimen (Source) Anatomical Collection Method Collection Time Re ceived Time Location / / Volume Laterality Nasopharyngeal Swab 03/28/2022 11:03 06/ 01/2022 AM CDT 12:48 PM CDT Cassie Vizcaino MD MICROBIOLOGY - GENERAL ORDER HOSSEIN Performing Organization Address City/[facility]/ZIP Code Phon e Number [facility] Unless otherwise noted, [address] all lab tests performed by: Division of Pathology and Laboratory Medicine [address] [place] [address] Clot Expiration Date (03/28/2022 10:54 AM CDT)Only the most recent of2 results within the time period is included. [facility] Signature T & S 03/31/2022 [facility] Specimen Anatomical Collection Method Collection Time Receive d Time (Source) Location / / Volume Laterality Blood 03/28/2022 10:54 03/28/2022 3:03 AM CDT PM CDT Umm JUNIOR BLOOD BANK TEST ORDERABLES Performing Organization Address City/[facility] Phon e Number [facility] Unless otherwise noted, [address] all lab tests performed by: Division of Pathology and Laboratory Medicine [address] [place] [address] TMP Interpretation Antibody Screen Negative (03/28/2022 10:54 AM CDT)Only the most recent of2 resultswithin the time period is included. [facility] TMP Auto Neg At the [facility] patient plasma shows no evidence of RBC alloantibodi es. Comment: MD Galileo DOE [id number] Dictated by: MD Galileo [id number] Dictated Date/Time: 03.29.2022 13:38 PM CDT Transcribed Date/Time: 03.29.2022 13:38 PM CDT Electronically Signed By: MD Galileo DOE on 03.29.2022 13:38 PM Specimen Anatomical Collection Method Collection Time Receive d Time (Source) Location / / Volume Laterality Blood 03/28/2022 10:54 03/28/2022 3:03 AM CDT PM CDT Umm Mccann PA BLOOD BANK TEST ORDERABLES Performing Organization Address City/State/ZIP Code Phon e Number [facility] Unless otherwise noted, [address] all lab tests performed by: Division of Pathology and Laboratory Medicine [address] ABORh (03/28/2022 10:54 AM CDT)Only the most recent of2 resultswithin the time period is included. athologist Signature ABORh. A POS [facility] Specimen Anatomical Collection Method Collection Time Receive d Time (Source) Location / / Volume Laterality Blood 03/28/2022 10:54 03/28/2022 3:03 AM CDT PM CDT Umm Mccann PA BLOOD BANK TEST ORDERABLES Performing Organization Address City/[facility]/ZIP [facility] Phon e Number [facility] Unless otherwise noted, [address] all lab tests performed by: Division of Pathology and Laboratory Medicine [address] Antibody Screen (03/28/2022 10:54 AM CDT)Only the most recent of2 resultswithin the time period is included. athologist [facility] [place] ABSC. Negative ABSC [facility] Specimen Anatomical Collection Method Collection Time Receive d Time (Source) Location / / Volume Laterality Blood 03/28/2022 10:54 03/28/2022 3:03 AM CDT PM CDT Umm Mccann PA BLOOD BANK TEST ORDERABLES Performing Organization Address City/[facility]/ZIP Code Phon e Number [facility] Unless otherwise noted, [address] all lab tests performed by: Division of Pathology and Laboratory Medicine [address] Ferritin (03/18/2022 1:56 PM CDT) [facility] L[facility] 37 30 - 400 CROWDER ng/mL Comment: Testing performed at [facility], [address] [place] [address] Specimen Anatomical Collection Method Collection Time Receive d Time (Source) Location / / Volume Laterality Blood 03/18/2022 1:56 PM 2 1:56 CDT PM CDT Bria Blackwood DIRECTOR OF [employer] LAB BLOOD ORDERABLES Performing Organization Address City/State/ZIP [place] [address] [place] [address] (ABNORMAL) Vitamin B12 Level (03/18/2022 1:56 PM CDT) Analysis Performed At Patho logist Time Signature Vitamin B12 1,346 (H) 211 - 946 CROW[address] Lvl pg/mL Comment: [facility], [address] [place] [address], [place] [address] Specimen Anatomical Collection Method Collection Time Receive d Time (Source) Location / / Volume Laterality Blood 03/18/2022 1:56 PM 2 1:56 CDT PM CDT Bria Blackwood DIRECTOR [employer] LAB BLOOD ORDERABLES Performing Organization Address City/State/Z[place] [address] [place] [address] CT Abdomen Pelvis with and without Contrast Urogram (02/18/2022 9:02 AM CDT) Anatomical Region Laterality Modality Abdomen, Pelvis Computed Tomography Specimen (Source) Anatomical Collection Method Collection Time Re ceived Time Location / / Volume Laterality 02/19/2022 8:23 AM CDT Impressions 02/19/2022 8:55 AM CDT 1. Since 01/26/2022, right bladder mass is overall stable. 2. No definite metastasis in the abdom en or pelvis. 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 Findings: LUNG BASES: Small left pleural effusion with pleural thickening remains unchanged. ABDOMEN AND PELVIS: No suspicious liver lesions. Cluster of small gallbladder stones without CT evidence of acute cholecystitis, unchanged. The adrenal glands are normal. Stable probable subcentimeter splenic cyst. A cyst in the pancreatic body slowly inc reased in size from 1.9 cm x 1.5 cm to 2.4 cm x 1.8 cm since 01/26/2022 and earlier examinations. 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 No obvious mural nodules or se ptations seen about the cyst. No main pa ncreatic ductal dilatation. An approximately 3.2 cm x 2.9 cm intralu anju, polypoid and heterogeneous enhancing mass extends from the right bladder wall in the region of the UVJ. The right UVJ is slightly distorted by the tumor. N o perivesicular tumor extension. No susp icious mass or urothelial thickening seen elsewhere in the upper tracts. No hydroureteronephrosis. The approximately 0.5 cm x 8.4 cm lower pole right and several slightly smaller bilateral renal cortical cysts are unchanged. Stable small indeterminate 0.9 cm left p eriaortic retroperitoneal lymph node (series 6 image 79). Since 01/26/2022, stent grafts along port ion of the aorta and bilateral common iliac arteries are unchanged. 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 Moderate to severe degenerative changes along the thoracic and lumbar spine consisting of osteophyte formations. Procedure Note India Galdamez MD - 02/19/2022Formatting of th is note might be different from the original. 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 Findings: LUNG BASES: Small left pleural effusion with pleural thickening remains unchanged. ABDOMEN AND PELVIS: No suspicious liver lesions. Cluster of small gallbladder stones without CT evidence of acute cholecystitis, unchanged. The adrenal glands are normal. Stable probable subcentimeter splenic cyst. A cyst in the pancreatic body slowly inc reased in size from 1.9 cm x 1.5 cm to 2.4 cm x 1.8 cm since 01/26/2022 and earlier examinations. 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 No obvious mural nodules or septations seen about the cyst. No main pancreatic ducta l dilatation. An approximately 3.2 cm x 2.9 cm intralu anju, polypoid and heterogeneous enhancing mass extends from the right bladder wall in the region of the UVJ. The right UVJ is slightly distorted by the tumor. No perivesicular tumor extension. No suspicious mass or u rothelial thickening seen elsewhere in the upper tracts. No hydroureteronephrosis. The approximately 0.5 cm x 8.4 cm lower pole right and several slightly smaller bilateral renal cortical cysts are unchanged. Stable small indeterminate 0.9 cm left p eriaortic retroperitoneal lymph node (series 6 image 79). Since 01/26/2022, stent grafts along port ion of the aorta and bilateral common iliac arteries are unchanged. 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 Moderate to severe degenerative changes along the thoracic and lumbar spine consisting of osteophyte formations. IMPRESSION: 1. Since 01/26/2022, right bladder mass i s overall stable. 2. No definite metastasis in the abdomen or pelvis. Umm JUNIOR IMMonica CT ORDERABLES (ABNORMAL) POC Creatinine (02/18/2022 7:49 AM CDT)Only the most recent of3 resultswithin the time period is included. P athologist Signature POC Crea 1.2 0.6 - 1.3 POC [facility] mg/dL Comment: Medications, especially hydroxyurea or s upplements, such as ascorbate, can interfere with test results causing a falsely and significantly higher result than expected. If a problem is suspected with a patient's result, a sample should be sent to the laboratory for confirmatory testing. Method description: The i-STAT is an marielle lyzer used for in vitro quantification of various analytes in whole blood. The device uses a single disposable cartridge which contains microfabricated sensors, a calibration solution, fluidics system, and a waste chamber. Each test cartridge contains ch emically sensitive biosensors on a silicon chip that are configured to perform specific tests. The microfabricated sensors measure analyte concentration by an electrochemical assay. POC eGFR-AA 64 >=60 mL/min/1.73 m2 POC [facility] OR Comment: Normal eGFR >= 60 mL/min/1.73 m2 The eGFR is calculated using the CKD-EPI equation. The eGFR declines with age. eGFR <60 mL/min/1.73 m2 is considered as "decreased" This equation should only be used for patients 18 and older. According to the National Kidney Foundat ion's Kidney Disease Outcome Quality Initiative (KDOQI) classification and 2012 Kidney Disease Improving Global Outcomes (KDIGO) Clinical Practice Guideline, the stage of CKD should be categorized based on estimated GFR. Stage Description GFR mL/min/1.73 m2 1 Kidney damage with normal or high GFR >=90 2 Kidney damage with mild decrease in GF R 60-89 3a Mild to moderate decrease in GFR 45-59 3b Moderate to severe decrease in GFR 30-44 4 Severe decrease in GFR 15-29 5 Kidney failure <15 (or dialysis) POC eGFR-GOLDIE 55 (L) >=60 mL/min/1.73 m2 POC [facility] Comment: Normal eGFR >= 60 mL/min/1.73 m2 The eGFR is calculated using the CKD-EPI equation. The eGFR declines with age. eGFR <60 mL/min/1.73 m2 is considered as "decreased" This equation should only be used for patients 18 and older. According to the National Kidney Foundat ion's Kidney Disease Outcome Quality Initiative (KDOQI) classification and 2012 Kidney Disease Improving Global Outcomes (KDIGO) Clinical Practice Guideline, the stage of CKD should be categorized based on estimated GFR. Stage Description GFR mL/min/1.73 m2 1 Kidney damage with normal or high GFR >=90 2 Kidney damage with mild decrease in GF R 60-89 3a Mild to moderate decrease in GFR 45-59 3b Moderate to severe decrease in GFR 30-44 4 Severe decrease in GFR 15-29 5 Kidney failure <15 (or dialysis) POC Clean Dev Yes POC [facility] Performing Lab [facility] POC TELCO R Comment: [facility] ,[address] [facility] [place] [address], Point of Care [employer] Operator: Kandace Taylor MD Specimen Anatomical Collection Method Collection Time Receive d Time (Source) Location / / Volume Laterality Blood 02/18/2022 7:49 AM 7:49 CDT AM CDT Leonard Giraldo MD POCT ORDERABLES - DEVICE Performing Organization Address City/State/ZIP Code Phon e Number POC [facility] COVID-19 (CONNER-CoV-2) PCR Asymptomatic (02/17/2022 11:16 AM CDT) Component Value Ref Range Test Analysis Performed Pathologis t Method Time At [facility] [place] COVID19 SARS Pre-OR Procedure UT MD Indication [facility] COVID19 SARS Not Detected Not UT Result Detected [facility] COVID19 SARS SARS-CoV-2 NOT Detected. NM Interpretation [facility] Reference Range: Not Detected [facility] Methodology: The [employer] Real Time SARS-CoV-2 assay is a qualitative real-time reverse sectional belt mold assembler polymerase chain reaction (supervisor refractory products-PCR) test to detect RNA from SARS-CoV-2 in nasal, nasopharyngeal and oropharyngeal swabs from patients with signs and symptoms of infection who ar e suspected of COVID-19 by their health care provider. The [employer]z RealTime SARS-CoV-2 performed on the [employer]000 System is a dual target assay with primers and probes for the RdRp and N genes. Results must be interpreted within the context of all relevant clinical and laboratory findings, and epidemiological risk factors. Positive results are indicative of the presence of SARS-CoV-2 RNA; clinical correlation with patient history and other diagnostic information is ne cessary to determine patient infection status. Positive results do not rule out bacterial infection or co-infection with other viruses. Negative results do not preclude SARS- CoV-2 infection and should not be used as the sole basis for patient management decisions. The [employer] RealTime SARS-CoV -2 assay is for in vitro diagnostic use under FDA Emergency Use Authorization only. Testing is limited to laboratories certified under the Clinical Laboratory Improvement Mitzi ndments of 1988 (CLIA), 42U.S.C. 263a, to perform high complexity tests. The T est was performed by the CLIA-certified, high- complexity Molecular Diagnostics Laboratory (MDL) at [facility] under the Food and Drug Administration (FDA) s Emergency Use Authorization. Factsheet for patients: https://www.[facility].org/AbbottFac tSheetPatients Factsheet for healthcare pro viders: https://www.[facility].org/AbbottFactSheetHCP Test performed by: [facility] Molecular Diagnostic Lab [address] [place] [address] Specimen (Source) Anatomical Collection Method Collection Time Re ceived Time Location / / Volume Laterality Nasopharyngeal Swab 02/17/2022 11:16 05/1 03/2022 AM CDT 1:08 PM CDT Cassie Vizcaino MD MICROBIOLOGY - GENERAL ORDER HOSSEIN Performing Organization Address City/State/ZIP Code Phon e Number NM MD [facility] Unless otherwise noted, [place], [place] [id number] [place] [address] all lab tests performed by: Division of Pathology and Laboratory Medicine [address] [facility] [address] Hemoglobin A1c (02/17/2022 10:51 AM CDT) athologist Signature A1C 5.1 4.3 - 5.6 % CROWDER Comment: HbA1c values >=6.5% are diagnostic of di abetes mellitus. Diagnosis should be confirmed by repeat testing. Therapeutic Action suggested: >8.0% HbA1 c; Goal of therapy: <7.0% HbA1c Testing performed at [facility], [address] [place] [address] Specimen Anatomical Collection Method Collection Time Receive d Time (Source) Location / / Volume Laterality Blood 02/17/2022 10:51 02/17/2022 AM CDT 10:52 AM CDT Umm JUNIOR LAB BLOOD ORDERABLES Performing Organization Address City/[facility]/ZIP Code Phon e Number [facility] [place], [place] [id number] [place] [address] Abdomen and Pelvis (01/26/2022 3:12 PM CDT) Specimen (Source) Anatomical Location Collection Method / Collectio n Time Received Time / Laterality Volume Narrative Systemgenerated, Documentation - 022 3:12 PM CDT Study acquired at another institution. For comparison only. No MD [facility] originated interpretation requested or a vailable. Leonard Giraldo MD IMG OUTSIDE IMAGE ORDERABLES Uric Acid (01/01/2022 9:58 AM CDT) athologist Signature Uric Acid 5.7 3.4 - 7.0 NM MD [facility] mg/dL [facility] Specimen Anatomical Collection Method Collection Time Receive d Time (Source) Location / / Volume Laterality Blood 01/01/2022 9:58 AM CDT 10:06 AM CDT Nicolette GARRIDO LAB BLOOD ORDERABLES Performing Organization Address City/State/ZIP Code Phon e Number NM MD [facility] Unless otherwise noted, [place] [address] CENTER all lab tests performed by: Division of Pathology and Laboratory Medicine [address] (ABNORMAL) T3 (01/01/2022 9:58 AM CDT) P athologist Signature T3 Total 76 (L) 80 - 200 [facility] ng/dL CANCER CENTER Specimen Anatomical Collection Method Collection Time Receive d Time (Source) Location / / Volume Laterality Blood 01/01/2022 9:58 AM CDT 10:22 AM CDT Nicolette Morataya ANP LAB BLOOD ORDERABLES Performing Organization Address City/State/ZIP Code Phon e Number [facility] CANCER Unless otherwise noted, [place] [address] [facility] all lab tests performed by: Division of Pathology and Laboratory Medicine [address] Brain (12/30/2021 3:17 PM CDT) Specimen (Source) Anatomical Location Collection Method / Collectio n Time Received Time / Laterality Volume Narrative Systemgenerated, Documentation - 022 3:18 PM CDT Study acquired at another institution. For comparison only. No MD [facility] originated interpretation requested or a vailable. Leonard NOVOA OUTSIDE IMAGE ORDERABLES OSI CT Chest (12/30/2021 3:13 PM CDT) Specimen (Source) Anatomical Location Collection Method / Collectio n Time Received Time / Laterality Volume Narrative Systemgenerated, Documentation - 022 3:14 PM CDT Study acquired at another institution. For comparison only. No MD [facility] originated interpretation requested or a vailable. Leonard NOVOA OUTSIDE IMAGE ORDERABLES Echocardiogram 2D Complete (12/23/2021 3:33 PM CDT) Specimen (Source) Anatomical Collection Method Collection Time Re ceived Time Location / / Volume Laterality 12/23/2021 3:00 PM CDT Narrative ISCV - 12/23/2021 4:54 PM CDT [...] 66 Procedure Note Joel King MD - 12/23/2021Formatti ng of this note might be different from the original. Echocardiographic Report Interpretation Summary A complete two-dimensional [...] Normal = 100 Normal global longitudinal peak sys tolic value. X - Cannot 1 - Normal 2 - 3 - Akinetic 4 - Dyskinetic Interpret Hypokinetic 5 - Aneurysmal 3D imaginD volumes were not performed in this [facility]. Cardiac Mechanics/Speckle Tracking Imagi ng: Normal global [...] EDV(MOD-A2C): 86.6 ml ESV(MOD-A2C): 30.9 ml EDV(MOD-bp): 9 3.6 ml EF(MOD-A2C): 64.3 % ESV(MOD-bp): 31. 7 ml EF(MOD-bp): 66.1 % LAV(MOD-A2C): 56.1 ml EDV (MOD-bp) I ndex: 43.5 ml/m2 LAV(MOD-A4C): 70.5 ml LAV(MOD-bp): 67.1 ml LAV(MOD-bp) Indexed: 31.1 ml/m2 ESV (MOD-bp) Index: 14.7 ml/m2 RWT: 0.46 cm TAPSE (>1.6): 2.8 cm Doppler Measurements MV E max cassie: 64.2 cm/sec MV V2 max : 100.6 cm/sec MV A max cassie: 32.6 cm/sec MV max P.0 mmHg MV E/A: 2.0 MV V2 mean: 47.4 cm/sec MV mean P.2 mmHg MV V2 VTI: 24.4 cm MVA(VTI): 4.4 cm2 MV dec time: 0.11 sec Ao V2 max: 195 .8 cm/sec Ao max P.3 mmHg Ao V2 mean: 121.2 cm/sec Ao mean P.7 mmHg Ao V2 VTI: 38.7 cm BRYAN(I,D): 2.8 cm2 BRYAN(V,D): 2.6 cm2 LV V1 max P.5 mmHg SV(LVOT): 10 6.7 ml LV V1 mean P.5 mmHg LV V1 max: 117.0 cm/sec LV V1 mean: 71.5 cm/sec LV V1 VTI: 24.5 cm Med Peak E' Cassie: 14.2 cm/sec Lat Pea k E' Cassie: 20.8 cm/sec TR max cassie: 250.2 cm/sec RAP systole : 3.0 mmHg TR max P.4 mmHg RVSP(TR): 33.4 mmHg RV S Vel_phl: 19.4 cm/sec BRYAN Index (I,D): 1.3 BRYAN Index (V,D): 1.2 Dimensionless I ndex: 0.60 E/e' (avg): 3.7 E/e' (lat): 3.1 E/e' (sept): 4.5 66 Nicolette Waxman ANP CV ECHO ORDERABLES Performing Organization Address City/State/ZIP Code Phon e Number ISCV X-ray Chest 2 Views (12/23/2021 1:06 PM CDT) Anatomical Region Laterality Modality Chest Digital Radiography Specimen (Source) Anatomical Collection Method Collection Time Re ceived Time Location / / Volume Laterality 12/23/2021 1:07 PM CDT Impressions 12/23/2021 1:09 PM CDT Small loculated left pleural effusion. Narrative 12/23/2021 1:09 PM CDT FULL RESULT: Examination: [...] Procedure Note Estefani Couch MD - 12/24/19 22 FULL RESULT: Examination: XR CHEST 2 VW, [...] wall. IMPRESSION: Small loculated left pleural effusion. Lauren Pleitez BOX OFFICE CLERK IMG DIAGNOSTIC IMAGING ORDER HOSSEIN PETCT Subsequent Treatment Strategy (12/09/2021 11:36 AM CLAMPER) Anatomical Region Laterality Modality Whole Body Positron Emission To mography (PET) Specimen (Source) Anatomical Collection Method Collection Time Re ceived Time Location / / Volume Laterality 12/09/2021 12:22 PM CLAMPER Impressions 12/09/2021 12:43 PM CLAMPER Increase in size and FDG avidity of the tumor recurrence in the left lung adjacent to the sutures. New small to moderate right pleural effusion. New FDG avid focus in the free wall of the left ventricle of uncertain etiology. Increase in size of the solid right renal lesion suspicious for renal neoplasm. Narrative 12/09/2021 12:43 PM CLAMPER FULL RESULT: Examination: FDG PET/CT, 12/09/2021 11:36 [...] left. Procedure Note Ruthann Cho MD - 12/09/2021Format ting of this note might be different from the original. FULL RESULT: Examination: FDG PET/CT, 12/09/2021 11:36 [...] rest quietly for approximately 60-90 minutes. PET/CT imag ing was performed from the skull to upper [...] is recommended. The liver, spleen, pancreas, adrenals an d kidneys are unremarkable. Bilateral renal cyst are [...] right renal lesion suspicious for renal neoplasm. Salazar Gay MD IMG PETCT ORDERABLES OSI Chest (11/19/2021 3:19 PM CLAMPER) Specimen (Source) Anatomical Location Collection Method / Collectio n Time Received Time / Laterality Volume Narrative Systemgenerated, Documentation - 022 3:19 PM CDT Study acquired at another institution. For comparison only. No MD [facility] originated interpretation requested or a vailable. Leonard Enzo MD IMG OUTSIDE IMAGE ORDERABLES CT Chest with Contrast (10/15/2021 9:56 AM CLAMPER)Only the most recent of2 results within the time period is included. Anatomical Region Laterality Modality Chest Computed Tomography Specimen (Source) Anatomical Collection Method Collection Time Re ceived Time Location / / Volume Laterality 10/15/2021 10:12 AM CLAMPER Impressions 10/15/2021 11:13 AM CLAMPER * Stable pulmonary nodule at the resection [...] and agree with the final report. Narrative 10/15/2021 11:13 AM CLAMPER FULL RESULT: Examination: CT CHEST W CONTRAST, [...] IMPRESSION: * Stable pulmonary nodule at the resecti on site in the left lower lobe. * Subpleural nodular opacity in the righ t lower lobe is stable. No new intrathoracic disease. This is a preliminary resident reported has not been reviewed by an attending radiologist. I personally reviewed these image(s) joan ng with the resident's/fellow's interpretations, certify that if a procedure was performed I was physically present, and agree with the final report. Nicolette Morataya ANP IMG CT ORDERABLES Pathology Biopsy Interpretation (09/30/2021 8:31 AM CLAMPER)Only the most recent of2 resultswithin the time period is included. Component Value Ref Test Analysis Performed Pathologis t Range Method Time At Signature Submitted Basal cell carcinoma of anterior chest [C44.519] 10/02/2021 [facility] Clinical Basal cell carcinoma of back [C44.519] 1 2:54 PM History CLAMPER Diagnosis A: Skin, right chest, ellipse: [facility] Electronically Skin and subcutis with healing surgical wound/scar. 12:54 PM signed by BASAL CELL CARCINOMA, NODULA R AND SUPERFICIAL PATTERNS, PIGMENTED, INKED MARGINS ARE FREE. CLAMPER Priyadhars ini Background actinic changes and folliculitis. MD Calvin on See comment. 021 at 12:54 PM B: Skin, central back, ellipse: Skin and subcutis with healing surgical wound/scar. BASAL CELL CARCINOMA, SUPERF ICIAL AND EARLY NODULAR PATTERNS, MARGINS ARE FREE. Diffuse background actinic changes and folliculitis. See comment. Comment A & B: Multiple 10/02/2021 [facility] additional deeper 12:54 PM tissue sections CLAMPER have been cut and examined. Gross A: 10/02/2021 [facility] Description Skin, right chest: A doyle, rick irbearing, irregular skin excision measuring 2.6 x 1.6 cm and excised to a depth 0.9 cm. There is a suture attached at 1 tip without designation and will be assigned at the 1 12:54 PM 2 o'clock position. The spec imen is serially sectioned, entirely submitted sequentially in A1-A6. ET CLAMPER INK CODE: From 12-3-6 o'clock, blue; from 6-9-12 o'clock, or tejas SECTION CODE: A1, 12:00 tip, ink side up; A2-A3, 12:00 half, 2 pieces each; A4- A5, 6:00 half, 2 pieces each; A6, 6:00 tip, ink side up. B: Skin, central back: A doyle, h airbearing, unoriented skin excision measuring 3.8 x 1.7 cm and excised to the 0.6 cm. There is a red-doyle, central lesion measuring 0.5 x 0.3 cm which is 0.7 cm to the closes t margin. The margins are in ked, serially sectioned, entirely submitted in B1- B6. ET SECTION CODE: B1, tips, ink side up; B2-B5 (3 pieces each) and B6 (2 pieces), remainder Disclaimer "Some tests 10/02/2021 [facility] reported here may 12:54 PM have been CLAMPER developed and performance characteristics determined by [facility]. These tests have not been specifically cleared or approved by the U.S. Food and Drug Administration. If applicable, controls were reviewed and showed appropriate reactivity." Specimen Anatomical Collection Method Collection Time Receive d Time (Source) Location / / Volume Laterality Tissue (Skin) 09/30/2021 8:31 AM 09/30/20 21 2:25 CLAMPER PM CLAMPER Tissue (Skin) 09/30/2021 8:32 AM 09/30/20 21 2:25 CLAMPER PM CLAMPER Claudia Stein MD LAB PATHOLOGY ORDERABLES Performing Organization Address City/State/ZIP Code Phon e Number [facility] [place] [address] [address] [facility] 4. Excision of a nodular basal cell carcinoma located on the central back (09/30/2021 8:30 AM CLAMPER) Claudia Hernández MD - 09/30/2021 8:30 A M CLAMPER Claudia Stein MD 10/08/2021 7:39 PM 4. Excision of a nodular basal cell ca rcinoma located on the central back Date/Time: 09/30/2021 8:30 AM Consent obtained: yes [place] Protocol (Time-out) performed: yes Provider Information Authorized by: Claudia Stein MD Performed by: Claudia Stein MD Supervising Physician: Claudia Stein MD Additional Surgeon: Odette Moore MD Long Chain Quiller Tender present?: yes Long Chain Quiller Tender: Nikolas Pyle MD Patient Diagnosis Clinical preoperative [...] draped in the nor mal fashion. The [place] Protocol was completed. An elliptical incision was [...] hospital capacity needed to cope with COVID-19. Claudia Stein MD PROCEDURE/MINOR SURGICAL ORD ERABLES 3. Excision of a nodular basal cell carcinoma located on the right chest (09/30/2021 8:29 AM CLAMPER) Claudia Hernández MD - 09/30/2021 8:29 A M CLAMPER Claudia Stein MD 10/08/2021 7:39 PM 3. Excision of a nodular basal cell ca rcinoma located on the right chest Date/Time: 09/30/2021 8:29 AM Consent obtained: yes [place] Protocol (Time-out) performed: yes Provider Information Authorized by: Claudia Stein MD Performed by: Claudia Stein MD Supervising Physician: Claudia Stein MD Additional Surgeon: Odette Moore MD Long Chain Quiller Tender present?: yes Long Chain Quiller Tender: Nikolas Pyle MD Patient Diagnosis Clinical preoperative [...] draped in the nor mal fashion. The [place] Protocol was completed. An elliptical incision was [...] hospital capacity needed to cope with COVID-19. Claudia Stein MD PROCEDURE/MINOR SURGICAL ORD ERABLES 2. 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 Mohs-assisted excision of a squamou s cell carcinoma located on the left forehead Date/Time: 09/30/2021 8:29 AM Surgeon Authorized by: Claudia Stein MD Performed by: Claudia Stein MD Supervising Surgeon: Clauida Stein MD Additional Surgeon: Odette Moore MD Long Chain Quiller Tender: Nikolas Pyle MD Location Location: Left forehead [...] fashion. Local anesthesia was administer ed. The [place] Protocol was completed. The discernible tumor was [...] epidermis an d involving the dermis. Case: [id number] Stage 1: Tumor was present Number of [...] hospital capacity needed to cope with COVID-19. Claudia Stein MD DERM PROCEDURE ORDERABLES 1. 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 Mohs-assisted excision of a squamou s cell carcinoma located on the left temporal scalp Date/Time: 09/30/2021 8:29 AM Surgeon Authorized by: Claudia Stein MD Performed by: Claudia Stein MD Supervising Surgeon: Claudia Stein MD Additional Surgeon: Odette Moore MD Long Chain Quiller Tender: Nikolas Pyle MD Location Location: Left temporal [...] fashion. Local anesthesia was administer ed. The [place] Protocol was completed. The discernible tumor was [...] stages 1 through 1 (Normal skin). Case: [id number] Stage 1: No tumor was present at [...] capacity needed to cope with COVID-19. MD [facility] [address] [facility], [address] [place] [address] Claudia Stein MD DERM PROCEDURE ORDERABLES CT Chest Abdomen with Contrast (06/25/2021 11:10 AM CDT) Anatomical Region Laterality Modality Chest, Abdomen Computed Tomography Specimen (Source) Anatomical Collection Method Collection Time Re ceived Time Location / / Volume Laterality 06/26/2021 9:09 AM CDT Impressions 06/26/2021 9:33 AM CDT * Stable recurrent tumor at the resection site in the left lower lobe. No new or progressive disease. Narrative 06/26/2021 9:33 AM CDT FULL RESULT: Examination: [...] IMPRESSION: * Stable recurrent tumor at the resectio n site in the left lower lobe. No new or progressive disease. Nicolette GARRIDO IMG CT ORDERABLES after 05/24/2021 Insurance Payer Benefit Plan / Subscriber ID Effective Phone Address T e Group Dates [facility] MEDICARE [id number] 2017-Prese [address] [address] Medicare HEALTHCARE ADVANTAGE [place] [id number] Advance Directives Code Status Date Activated Date Inactivated Comments Full Code 04/06/2022 9:00 PM 04/08/2022 7:36 PM Full Code 03/31/2022 7:06 PM 03/31/2022 9:24 PM Full Code 02/19/2022 12:59 PM 02/20/2022 1:19 PM Full Code 03/01/2021 8:56 PM 03/03/2021 4:01 PM Full Code 12/15/2019 10:10 AM 12/17/2019 3:34 PM Care Teams Securities Sales Associate Relationship Specialty Start Date End Date Leonard Giraldo MD PCP - General 12/05/[address] [place] [id number] Torey Martins MD PCP - External Referring 06/01/[address] [place] [phone] Torey Martins MD PCP - External Follow Up A 06/01/[address] [place] [phone] Claudia Stein MD PCP - External Follow Up C Dermatology 03/20/[address] [place] [id number] Leonard Giraldo MD Physician 12/12/[address] [place] [phone]
--- OUTSIDE RECORDS SUMMARY | 2022-05-24 15:13 | XMS REPORT | Continuity of Care Document ---
:1935 Author Organization [facility] t Address [address] [place] [address] Care Team Providers Name Role Phone [phone] Primary Care Physician Unavailable SYSTEM, PROVIDER NOT IN Attending Clinician Unavailable Alonso Caceres RN Attending Clinician Unavailable Parish Turpin MD Attending Clinician PARISH TURPIN Attending Clinician Unavailable Ricardo Mcclelland Attending Clinician Rosalia Cedeno RN Attending Clinician Unavailable RICARDO MCCANN Attending Clinician Unavailable Lanny Vizcaino MD Attending Clinician Mara Harman MD, Rp Attending Clinician MARA HARMAN RP Attending Clinician Unavailable Kaitlin Thompson MD, V. Attending Clinician KAITLIN THOMPSON V. Attending Clinician Unavailable Eileen Singh PharmD Attending Clinician Unavailable Bria Blackowod APN Attending Clinician SUPRIYA TYLER Attending Clinician Unavailable Derik Winslow MD Attending Clinician Elvin Diez MD Attending Clinician Supriya Tyler MD Attending Clinician Ren Walker MD Attending Clinician Valerie TIM, Loren Marie Attending Clinician Unavailable Axel TIM, Nicolette Monet Attending Clinician Unavailable Jerod RN, Gabriel August Attending Clinician Placido TIM, Karine Oakes Attending Clinician Nicolette Billings Attending Clinician LANNY VIZCAINO Attending Clinician Unavailable Chris REICH, Alberto Ivory Attending Clinician [phone] Darryl DOMINGO, Saige Sol Attending Clinician Unavailable Isac MANTILLAN, Lenka Y Attending Clinician Tao DOMINGO, Samuel Attending Clinician Unavailable King RN, Marii Shaikh Attending Clinician Hans GuamanD, Vijaya Attending Clinician Tangela REICH, Sera Attending Clinician Vivek REICH, Chi Beaver Attending Clinician Sirisha HANNON, Stacie Attending Clinician [phone] Leny JUNIOR, Jonah Murray Attending Clinician Court Finley MD Attending Clinician Joel Hankins RN Attending Clinician Unavailable NICOLETTE MOSHER Attending Clinician Unavailable Luis POWELL, Sally Pillai Attending Clinician Jeffry Almanza MD Attending Clinician JEFFRY ALMANZA Attending Clinician Unavailable LAUREN ARREOLA Attending Clinician Unavailable Lauren Michelle Attending Clinician Rosita Milian MD Attending Clinician Thomas POWELL, Liudmila Oakes Attending Clinician Poonam REICH, Shayy Attending Clinician Emil REICH, Claudia Attending Clinician CLAUDIA ROGERS Attending Clinician Unavailable Sweta TIM, Radha Attending Clinician Unavailable Elvie Borja MD Attending Clinician Unavailable Nahed Bertrand MD Attending Clinician COURT FINLEY Attending Clinician Unavailable Nishant PharmD, Alejandro Attending Clinician [place] PharmAnnalise Shaikh Attending Clinician [phone] Cedric RN, [facility] Attending Clinician CARLOS WILL Attending Clinician Unavailable LIEN JOHNSON Attending Clinician Unavailable DERIK WINSLOW Admitting Clinician Unavailable LANNY VIZCAINO Admitting Clinician Unavailable Payers Payer Name Policy Type Policy Number Effective Date Expiration Date S ource Problems Condition Condition Condition Status Onset Resolution Last Treating Co mments Source Name Details Category Date Date Treatment Clinician Date Gross Gross Disease Active Univers hematuria hematuria 7-03 ity of 00:00: [facility] Acute Acute Disease Active [facility] retention retention 7-03 ity of of urine of urine 00:00: [facility] Bladder Bladder Disease Active Overview: [facility] cancer cancer 6-16 Formattin ity of 00:00: g of this note might be [facility] different n from the Cancer original. Center Added automatic ally from request for surgery [id number] Anemia Anemia Disease Active Univers 5-16 ity of 00:00: [facility] Mass of Mass of Disease Active Overview: [facility] urinary urinary 5-16 Formattin ity o f bladder bladder 00:00: g of this note might be [facility] different n from the Cancer original. Center Added automatic ally from request for surgery [id number] Pleural Pleural Disease Active Last Univers effusion effusion 3-21 Assessmen ity of 00:00: t & Plan: [place] Iam pillai of this Gigi note n might be Cancer different Center from the original. Right pleural effusion has resolved and it was most likely caused by fluid overload. No need for intervent ion at this time. Chronic Chronic Disease Active Last Univers obstructiv obstructiv 5-29 Assessmen ity of e e 00:00: t & Plan: [place] pulmonary pulmonary 00 Formatblair Oakes D disease disease g of this Scar so note n might be Cancer different Center from the original. No clinical evidence of exacerbat ion. Continue with Trelegy Ellipta one puff daily. Diarrhea Diarrhea Disease Active Unive rs - ity of 00:00: 00 [facility] Fatigue Fatigue Disease Active Univers 03-01 ity of 00:00: MD [facility]igi [facility] Disorder Disorder Disease Active Unive rs of fluid of fluid 03-01 ity of AND/OR AND/OR 00:00: [place] electrolyt electrolyt MD e e Anderso sol [facility] Hyposmolal Hyposmolal Disease Active U nivers ity and/or ity and/or 03-01 it y of hyponatrem [place] 00 MD [address] [address] 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 Hypertensi Hypertensi Disease Active U nivers on on 12-14 ity of 00:00: MD [facility] sol 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 Abdominal Abdominal Disease Active Last Uni vers aortic aortic 2-05 Assessmen ity of aneurysm aneurysm 00:00: t & Plan: [place] as 00 Iam REICH g of this [facility] note n might be Cancer different Center from the original. 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 Squamous Squamous Disease Active Last Unive rs cell cell 3-26 Assessmen ity of carcinoma carcinoma 00:00: [place] & Plan[place] of lower of lower 00 Iam REICH lobe of lobe of g of this [place] so left lung left lung note n might be Cancer different Center from the original. Patient currently on nivolumab .Recent PET-CT dated suggest enlargeme nt of the left lung lesion. 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 Center 07/05 Regulator y ImportLas t Assessmen t & Plan: Formattin g of this note might be different from the original. Patient has received local cardiolog y evaluatio n for history of atrial fibrillat ion, abdominal aortic aneurysm. Dr. 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 The patient has been on surveilla nce since 2014 for a 1.4 cm right renal mass. He is under the care of his local physician . Anticoagul Anticoagul Disease Active U nivers ation not ation not ity of tolerated tolerated Munir lopez MD [facility] Allergies, Adverse Reactions, Alerts Allergy Allergy Status Severity Reaction(s) Onset Inactive Treating Comm ents Source Name Type Date Date Clinician ETODOLAC DRUG Active Low Rash 2016-0 MD INGREDI 9-12 [facility] 00:00: n 00 ETODOLAC DRUG Active Low Rash 2016-0 MD INGREDI 9-12 [facility] 00:00: n 00 ETODOLAC DRUG Active Low Rash 2016-0 MD INGREDI 9-12 [place] 00:00: n 00 ETODOLAC DRUG Active Low Rash 2016-0 MD INGREDI 9-12 [facility] 00:00: n 00 ETODOLAC DRUG Active Low Rash 2016-0 MD INGREDI 9-12 [facility] 00:00: n 00 ETODOLAC DRUG Active Low Rash 2016-0 MD INGREDI 9-12 [place] 00:00: n 00 ETODOLAC DRUG Active Low Rash 2016-0 MD INGREDI 9-12 [place] 00:00: n 00 ETODOLAC DRUG Active Low Rash 2016-0 MD INGREDI 9-12 [facility] 00:00: n 00 ETODOLAC DRUG Active Low Rash 2016-0 MD INGREDI 9-12 [facility] 00:00: n 00 ETODOLAC DRUG Active Low Rash 2016-0 MD INGREDI 9-12 [place] 00:00: n 00 ETODOLAC DRUG Active Low Rash 2016-0 MD INGREDI 9-12 [facility] 00:00: n 00 ETODOLAC DRUG Active Low Rash 2016-0 MD INGREDI 9-12 [place] 00:00: n 00 ETODOLAC DRUG Active Low Rash 2016-0 MD INGREDI 9-12 [facility] 00:00: n 00 ETODOLAC DRUG Active Low Rash 2016-0 MD INGREDI 9-12 [place] 00:00: n 00 ETODOLAC DRUG Active Low Rash 2016-0 MD INGREDI 9-12 [place] 00:00: n 00 ETODOLAC DRUG Active Low Rash 2016-0 MD INGREDI 9-12 [place] 00:00: n 00 ETODOLAC DRUG Active Low Rash 2016-0 MD INGREDI 9-12 [facility] 00:00: n 00 ETODOLAC DRUG Active Low Rash 2016-0 MD INGREDI 9-12 [place] 00:00: n 00 ETODOLAC DRUG Active Low Rash 2016-0 MD INGREDI 9-12 [place] 00:00: n 00 ETODOLAC DRUG Active Low Rash 2016-0 MD INGREDI 9-12 [place] 00:00: n 00 ETODOLAC DRUG Active Low Rash 2016-0 MD INGREDI 9-12 [place] 00:00: n 00 ETODOLAC DRUG Active Low Rash 2016-0 MD INGREDI 9-12 [facility] 00:00: n 00 ETODOLAC DRUG Active Low Rash 2016-0 MD INGREDI 9-12 [place] 00:00: n 00 ETODOLAC DRUG Active Low Rash 2016-0 MD INGREDI 9-12 [place] 00:00: n 00 ETODOLAC DRUG Active Low Rash 2016-0 MD INGREDI 9-12 [place] 00:00: n 00 ETODOLAC DRUG Active Low Rash 2016-0 MD INGREDI 9-12 [place] 00:00: n 00 ETODOLAC DRUG Active Low Rash 2016-0 MD INGREDI 9-12 [place] 00:00: n 00 ETODOLAC DRUG Active Low Rash 2016-0 MD INGREDI 9-12 [place] 00:00: n 00 ETODOLAC DRUG Active Low Rash 2016-0 MD INGREDI 9-12 [facility] 00:00: n 00 ETODOLAC DRUG Active Low Rash 2016-0 MD INGREDI 9-12 [facility] 00:00: n 00 ETODOLAC DRUG Active Low Rash 2016-0 MD INGREDI 9-12 [facility] 00:00: n 00 ETODOLAC DRUG Active Low Rash 2016-0 MD INGREDI 9-12 [place] 00:00: n 00 ETODOLAC DRUG Active Low Rash 2016-0 MD INGREDI 9-12 [place] 00:00: n 00 ETODOLAC DRUG Active Low Rash 2016-0 MD INGREDI 9-12 [facility] 00:00: n 00 ETODOLAC DRUG Active Low Rash 2016-0 MD INGREDI 9-12 [facility] 00:00: n 00 ETODOLAC DRUG Active Low Rash 2016-0 MD INGREDI 9-12 [facility] 00:00: n 00 ETODOLAC DRUG Active Low Rash 2016-0 MD INGREDI 9-12 [place] 00:00: n 00 ETODOLAC DRUG Active Low Rash 2016-0 MD INGREDI 9-12 [place] 00:00: n 00 ETODOLAC DRUG Active Low Rash 2016-0 MD INGREDI 9-12 [place] 00:00: n 00 ETODOLAC DRUG Active Low Rash 2016-0 MD INGREDI 9-12 [facility] 00:00: n 00 ETODOLAC DRUG Active Low Rash 2016-0 MD INGREDI 9-12 [place] 00:00: n 00 ETODOLAC DRUG Active Low Rash 2016-0 MD INGREDI 9-12 [place] 00:00: n 00 ETODOLAC DRUG Active Low Rash 2016-0 MD INGREDI 9-12 [place] 00:00: n 00 ETODOLAC DRUG Active Low Rash 2016-0 MD INGREDI 9-12 [facility] 00:00: n 00 ETODOLAC DRUG Active Low Rash 2016-0 MD INGREDI 9-12 [facility] 00:00: n 00 ETODOLAC DRUG Active Low Rash 2016-0 MD INGREDI 9-12 [facility] 00:00: n 00 ETODOLAC DRUG Active Low Rash 2016-0 MD INGREDI 9-12 [facility] 00:00: n 00 ETODOLAC DRUG Active Low Rash 2016-0 MD INGREDI 9-12 [facility] 00:00: n 00 ETODOLAC DRUG Active Low Rash 2016-0 MD INGREDI 9-12 [facility] 00:00: n 00 ETODOLAC DRUG Active Low Rash 2016-0 MD INGREDI 9-12 [facility] 00:00: n 00 ETODOLAC DRUG Active Low Rash 2016-0 MD INGREDI 9-12 [facility] 00:00: n 00 ETODOLAC DRUG Active Low Rash 2016-0 MD INGREDI 9-12 [facility] 00:00: n 00 ETODOLAC DRUG Active Low Rash 2016-0 MD INGREDI 9-12 [facility] 00:00: n 00 ETODOLAC DRUG Active Low Rash 2016-0 MD INGREDI 9-12 [facility] 00:00: n 00 ETODOLAC DRUG Active Low Rash 2016-0 MD INGREDI 9-12 [facility] 00:00: n 00 ETODOLAC DRUG Active Low Rash 2016-0 MD INGREDI 9-12 [facility] 00:00: n 00 ETODOLAC DRUG Active Low Rash 2016-0 MD INGREDI 9-12 [facility] 00:00: n 00 ETODOLAC DRUG Active Low Rash 2016-0 MD INGREDI 9-12 [facility] 00:00: n 00 ETODOLAC DRUG Active Low Rash 2016-0 MD INGREDI 9-12 [facility] 00:00: n 00 ETODOLAC DRUG Active Low Rash 2016-0 MD INGREDI 9-12 [facility] 00:00: n 00 Etodolac Propensi Active Rash 2016-0 Univer s ty to 9-12 ity of adverse 00:00: [place] reaction 00 MD s [facility] ETODOLAC DRUG Active Low Rash 2016-0 MD INGREDI 9-12 [facility] 00:00: n 00 ETODOLAC DRUG Active Low Rash 2016-0 MD INGREDI 9-12 [facility] 00:00: n 00 ETODOLAC DRUG Active Low Rash 2016-0 MD INGREDI 9-12 [place] 00:00: n 00 ETODOLAC DRUG Active Low Rash 2016-0 MD INGREDI 9-12 [facility] 00:00: n 00 ETODOLAC DRUG Active Low Rash 2016-0 MD INGREDI 9-12 [facility] 00:00: n 00 ETODOLAC DRUG Active Low Rash 2016-0 MD INGREDI 9-12 [facility] 00:00: n 00 ETODOLAC DRUG Active Low Rash 2016-0 MD INGREDI 9-12 [facility] 00:00: n 00 ETODOLAC DRUG Active Low Rash 2016-0 MD INGREDI 9-12 [facility] 00:00: n 00 ETODOLAC DRUG Active Low Rash 2016-0 MD INGREDI 9-12 [facility] 00:00: n 00 ETODOLAC DRUG Active Low Rash 2016-0 MD INGREDI 9-12 [facility] 00:00: n 00 ETODOLAC DRUG Active Low Rash 2016-0 MD INGREDI 9-12 [facility] 00:00: n 00 ETODOLAC DRUG Active Low Rash 2016-0 MD INGREDI 9-12 [place] 00:00: n 00 ETODOLAC DRUG Active Low Rash 2016-0 MD INGREDI 9-12 [facility] 00:00: n 00 ETODOLAC DRUG Active Low Rash 2016-0 MD INGREDI 9-12 [facility] 00:00: n 00 ETODOLAC DRUG Active Low Rash 2016-0 MD INGREDI 9-12 [facility] 00:00: n 00 ETODOLAC DRUG Active Low Rash 2016-0 MD INGREDI 9-12 [facility] 00:00: n 00 ETODOLAC DRUG Active Low Rash 2016-0 MD INGREDI 9-12 [facility] 00:00: n 00 ETODOLAC DRUG Active Low Rash 2016-0 MD INGREDI 9-12 [facility] 00:00: n 00 ETODOLAC DRUG Active Low Rash 2016-0 MD INGREDI 9-12 [facility] 00:00: n 00 ETODOLAC DRUG Active Low Rash 2016-0 MD INGREDI 9-12 [facility] 00:00: n 00 ETODOLAC DRUG Active Low Rash 2016-0 MD INGREDI 9-12 [facility] 00:00: n 00 ETODOLAC DRUG Active Low Rash 2016-0 MD INGREDI 9-12 [facility] 00:00: n 00 ETODOLAC DRUG Active Low Rash 2016-0 MD INGREDI 9-12 [facility] 00:00: n 00 ETODOLAC DRUG Active Low Rash 2016-0 MD INGREDI 9-12 [facility] 00:00: n 00 ETODOLAC DRUG Active Low Rash 2016-0 MD INGREDI 9-12 [facility] 00:00: n 00 ETODOLAC DRUG Active Low Rash 2016-0 MD INGREDI 9-12 [facility] 00:00: n 00 ETODOLAC DRUG Active Low Rash 2016-0 MD INGREDI 9-12 [facility] 00:00: n 00 ETODOLAC DRUG Active Low Rash 2016-0 MD INGREDI 9-12 [facility] 00:00: n 00 ETODOLAC DRUG Active Low Rash 2015-0 MD INGREDI 9-12 [facility] 00:00: n 00 ETODOLAC DRUG Active Low Rash 2015-0 MD INGREDI 9-12 [facility] 00:00: n 00 Family History Family Member Diagnosis Comments Start Date Stop Date Source Natural brother Bladder Cancer [facility] [place] [facility] [place] Granddaughter -Other cancer [facility] [place] [facility] [place] Social History Social Habit Start Date Stop Date Quantity Comments Source History of Cigarette Smoker Universi ty of tobacco use [facility] History SDOH University o f Alcohol Frequency [facility] History SDNJ University o f Alcohol Std [facility] History SDOH University o f Alcohol Binge [place] MD Sophia rocha [facility] Exposure to 2022-05-11 2022-05-21 Not sure University SARS-CoV-2 00:00:00 09:23:00 [facility] Alcohol intake 2022-04-02 2022-04-02 Current drinker Unive rsity of 00:00:00 00:00:00 of alcohol [facility] Tobacco use and 2018-10-27 2018-10-27 Former smokeless Uni versity of exposure 00:00:00 00:00:00 tobacco user Fitz Dietz [facility] Center History SDOH 2016-06-16 2016-06-16 Social University o f Alcohol Comment 00:00:00 00:00:00 [place] [facility] Tobacco Comment 2016-06-16 2016-06-16 quit at age 51 Unive rsity of 00:00:00 00:00:[address] [facility] Center Sex [birth year] At [birth year] Universit y of 00:00:00 00:00:[address] [facility] Center Smoking Status Start Date Stop Date Source Ex-smoker 2018-10-27 00:00:00 2018-10-27 00:00:00 [facility]i ty of [facility] [place] Medications Ordered Filled Start Stop Current Ordering Indication Dosage Frequency Signature Comments Components Source Medication Medication Date Date Medication? Clinician (SIG) Name Name atoryue Yes 40mg Take 40 mg Univers n (LIPITOR) 8-18 by mouth ity of 40 mg 09:28: at [place] tablet 20 bedtime. MD Gigi sol [facility] finasteride Yes 5mg Take 5 mg U nivers (PROSCAR) 5 818 by mouth ity of mg tablet 09:28: daily. [place] [address] [address] [facility] fluticasone Yes 2{spray Inhale 2 Univers propionate 818 } sprays ity of (FLONASE) 09:28: into each Jared as 51 20 nostril mcg/spray daily. Andjaquelin nasal spray [facility] cholecalcif Yes 1{tbl} Take 1 Un pat binh, 8-18 tablet by ity of vitamin D3, 09:28: mouth [place] (VITAMIN D3 20 daily. ORAL) [facility] ciprofloxac 2021- No Bladder 500mg Take 1 Univers in HCl 05-14- cancer tablet ity of (Cipro) 500 00:00: 00:00 (500 mg) [place] mg tablet 00 :00 by mouth once for 1 [facility] dose. Take n one pill 6 Cancer hours Center after each weekly instillati on. amoxicillin Yes Bladder 500mg Take 1 Univers -clavulanat 05-02 cancer tablet ity of e 00:00: (500 mg) [place] (Augmentin) 00 by mouth 500 mg-125 once a Anderso mg per week. Take n tablet one pill 6 Cancer hours Center after each weekly BCG instillati on. apixaban Yes Hyposmolali 2.5mg Take 1 Univers (ELIQUIS) 04-14 ty and/or tablet ity of 2.5 mg 00:00: hyponatremi (2.5 mg) [place] tablet 00 a by mouth every 12 Anders[facility] (twelve) n hours. [facility] Center cefdinir 2021- No Hyposmolali 300mg Take 1 Univers (OMNICEF) 04-14 07-15 ty and/or capsule i ty of 300 mg 00:00: 04:59 hyponatremi (300 mg) [place] capsule 00 :00 a by mouth MD twice [place] daily for n 3 days. Cancer Start Center taking the day before hou gets removed/ur ology appointmen t losartan 2021- No Hyposmolali 100mg Take 1 Univers (COZAAR) 04-09 08-06 ty and/or tablet ity of 100 mg 00:00: 04:59 hyponatremi (100 mg) [place] tablet 00 :00 a by mouth MD daily for [place]o 30 days. n Hold if Cancer systolic Center BP <120 apixaban 2021- No 2.5mg Take 2.5 Uni vers (ELIQUIS) 04-0805 mg by ity of 2.5 mg 22:55: 00:00 mouth. [place] tablet 57 :00 MD Yu n Cancer Center losartan-hy 2021- No hypertensio 1{tbl} Take 1 Univers drochloroth 04-08 n tablet by it y of iazide 17:36: 00:00 mouth [place] (HYZAAR) 11 :00 daily. 100-25 mg Andgriso per tablet n Cancer Center sodium Yes Hyposmolali 1{spray Apply 1 Univers chloride 04-08 ty and/or } spray to it y of (OCEAN) 00:00: hyponatremi each nare [place] 0.65% nasal 00 a every 6 MD spray (six) [facility] hours. n Cancer Center hyoscyamine Yes Bladder .125mg Place 1 Univers sulfate 03-31 cancer tablet ity of (ANASPAZ) 00:00: (0.125 mg) [place] 0.125 mg 00 under the MD disintegrat tongue Mustapha o ing tablet every 6 n (six) Cancer hours as Center needed (bladder spasms). levoFLOXaci 2021- No Bladder 500mg Take 1 Univers n 03-28 07-05 cancer tablet ity of (LEVAQUIN) 00:00: 00:00 (500 mg) [place] 500 mg 00 :00 by mouth tablet daily. [place] Begin day n before Cancer surgery Center levoFLOXaci 2021- No Bladder 500mg Take 1 Univers n 03-27 cancer tablet ity of (LEVAQUIN) 00:00: 00:00 (500 mg) [place] 500 mg 00 :00 by mouth MD tablet daily. [facility] Start the n day before Cancer surgery Center Eliquis 2.5 2021- No 1{tbl} Take 1 U nivers mg tablet 03-25 tablet by ity of 00:00: 00:00 mouth [place] 00 :00 twice MD daily. [facility] tolterodine 2021- No Mass of 4mg Take 1 Univers (Detrol LA) 02-21 urinary capsule (4 ity of 4 mg 24 hr 00:00: 00:00 bladder mg) by [place] capsule 00 :00 mouth MD daily. [facility] hyoscyamine 2021- No Painful .125mg Dissolve 1 Univers sulfate 02-21 bladder tablet ity of (ANASPAZ) 00:00: 04:59 spasm (0.125 mg) [place] 0.125 mg 00 :00 on the MD disintegrat tongue Mustapha o ing tablet every 4 n (four) Cancer hours as Center needed for cramping (bladder spasms, penile pain) for up to 7 days. apixaban No 2.5mg Take 2.5 Uni vers (ELIQUIS) 02-20 05-19 mg by ity of 2.5 mg 11:19: 00:00 mouth [place] tablet 37 :00 twice MD daily. [facility] docusate No Mass of 100mg Take 1 Un pta sodium 02-20- urinary capsule ity of (Colace) 00:00: 04:59 bladder (100 mg) [place] 100 mg 00 :00 by mouth MD capsule twice [place] daily for n [address] [facility] hyoscyamine 2021- No Painful .125mg Dissolve 1 Univers sulfate 02-19-20 bladder tablet ity of (ANASPAZ) 00:00: 00:00 spasm (0.125 mg) [place] 0.125 mg 00 :00 on the MD disintegrat tongue Mustapha o ing tablet every 4 n (four) Cancer hours as Center needed for cramping (bladder spasms, penile pain) for up to 7 days. ipratropium 2021- No Unive rs (ATROVENT) 02-12 ity of 42 mcg 00:00: 00:00 [place] (0.06 %) 00 :00 nasal spray [facility] benzonatate 2021- No 1{capsu Take 1 Univers (TESSALON) 302-24 le} capsule by it y of 100 mg 00:00: 00:00 mouth 4 [place] capsule 00 :00 (four) MD times a Anderso day as n needed for Cancer cough. Center methylPREDN Yes Squamous Take as Univers ISolone 2-15 cell directed ity of (Medrol, 00:00: carcinoma, (Direction [place] Bob,) 4 mg 00 NOS of s on MD tablet lower lobe, blister And erso lung <Left> pack) n Cancer Center mupirocin 2020-10- No Squamous Apply Un pat (BACTROBAN) 12-01 cell topically it y of 2% ointment 00:00: 00:00 carcinoma to [place] 00 :00 of scalp affected MD area(s) Anders[place] twice n daily. Cancer Center cephalexin 2020-10- No Squamous 500mg Take 1 Univers (KEFLEX) 12-01 cell capsule ity of 500 mg 00:00: 05:59 carcinoma (500 mg) [place] capsule 00 :00 of scalp by mouth twice [place] daily for n 10 days. Cancer Center azithromyci 2020-10- No Unive rs n 1-11 12-15 ity of (ZITHROMAX) 00:00: 00:00 [place] 250 mg 00 :00 tablet [facility] carvedilol 2020-10 Yes 12.5mg 12.5 mg Un pat (COREG) 1-04 twice ity of 12.5 mg 00:00: daily. [place] tablet 00 [facility] mupirocin 2021- No Basal cell Apply Univers (BACTROBAN) 03-20 carcinoma - topically ity of 2% ointment 00:00: 00:00 [place] :[place] affected MD area(s) [place] twice n daily. Cancer Center furosemide Yes 1{tbl} Take 1 Uni vers (LASIX) 20 1-19 tablet by ity of mg tablet 00:00: mouth [place] 00 every MD morning. Andjaquelin sol [facility] ALPRAZolam 202- No 1{tbl} Take 1 Un pat (XANAX) 1 1-12 07-05 tablet by ity of mg tablet 00:00: 00:00 mouth [place] 00 :00 nightly as [facility]. n [facility] [place] carvedilol 2019-10- No 1{tbl} Take 1 Un pat (COREG) 25 2-16 12-15 tablet by ity of mg tablet 00:00: 00:00 mouth [place] 00 :00 twice MD daily. Andjaquelin sol [facility] Trelegy Yes 1 PUFF BY Unive rs Ellipta 6-15 MOUTH ity of 100-62.5-25 00:00: DAILY, Munir s mcg dsdv 00 RINSE MD MOUTH WITH Anderso WATER n AFTER USE Cancer Center Immunizations Ordered Filled Immunization Date Status Comments Sour e Immunization Name Name Moderna SARS-CoV-2 2021-12-01 Completed Univer sity of Vaccination 00:00:[address] [facility] [address] [facility] Moderna SARS-CoV-2 2021-11-11 Completed Univer sity of Booster Vaccination 00:00:00 Fitz Moreno (50 mcg/0.25 mL) [facility] SARS-[facility] 2021-06-20 Completed Univer sity of Vaccination 00:00:[address] [facility] Influenza Whole 2021-06-12 Completed Universit y of 00:00:[address] [facility] Moderna SARS-CoV-2 2020-11-15 Completed Univer sity of Vaccination 00:00:00 [facility] 2020-10-18 Completed Univer sity of Vaccination 00:00:[address] [facility] Tdap 2019-10-15 Completed University of 00:00:[address] [facility] Influenza, 2019-08-13 Completed University of Quadrivalent 00:00:00 [facility] Influenza, 2018-08-31 Completed [facility] 00:[facility]00 [facility] Vital Signs Vital Name Observation Time Observation Value Comments Source Oxygen saturation in 2022-05-21 15:26:00 96 /min [facility] Arterial blood by [facility] Systolic blood 2022-05-21 15:22:35 157 mm[Hg] Univer sity of pressure [facility] Diastolic blood 2022-05-21 15:22:35 72 mm[Hg] Unive rsity of pressure [place] MD [facility] Heart rate 2022-05-21 15:22:35 54 /min [facility] Body temperature 2022-05-21 15:22:35 36.89 Shobha [facility] Respiratory rate 2022-05-21 15:22:35 22 /min [facility] Body weight 2022-05-21 15:22:35 [facility] BMI 2022-05-21 15:22:35 26.13 kg/m2 [facility] Body height 2022-04-07 04:00:00 183 cm [facility] Procedures Procedure Date / Time Performing Source Performed Clinician COMPLETE BLOOD COUNT W/ 2022-04-14 Kaitlin Thompson V. [facility] DIFFERENTIAL 15:19:00 [facility] COMPREHENSIVE METABOLIC PANEL 2022-04-14 Kaitlin Thompson V. [facility] 15:19:00 [facility] MAGNESIUM LEVEL 2022-04-14 Kaitlin Thompson V. [facility] 15:19:00 [facility] THYROID STIMULATING HORMONE 2022-04-14 [facility] 15:19[facility]00 [facility] FREE THYROXINE 2022-04-14 Kiatlin Thompson V. [facility] 15:19:00 [facility] Results CBC 2022-04-14 Kaitlin Thompson V. [facility] 15:19:00 [facility] MANUAL DIFFERENTIAL 2022-04-14 Kaitlin Thompson V. [facility] 15:19:[address] [facility] GLUCOSE LEVEL 2022-04-14 Kaitlin Thompson V. [facility] 15:19:00 [facility] BLOOD UREA NITROGEN 2022-04-14 Kaitlin Thompson V. [facility] 15:19:00 [facility] ELECTROLYTE PANEL 2022-04-14 Kaitlin Thompson V. [facility] 15:19:00 [facility] SERUM CREATININE 2022-04-14 Kaitlin Thompson V. [facility] 15:19:00 [facility] .GLOMERULAR FILTRATION RATE 2022-04-[address] [facility] 15:19:00 [facility] CALCIUM LEVEL TOTAL 2022-04-14 Kaitlin Thompson V. [facility] 15:19:[address] [facility] ALBUMIN LEVEL 2022-04-14 Kaitlin Thompson V. [facility] 15:19:[address] [facility] ALKALINE PHOSPHATASE 2022-04-14 Kaitlin Thompson V. [facility] 15:19:[address] [facility] ALANINE AMINOTRANSFERASE 2022-04-14 Kaitlin Thompson V. [facility] 15:19:00 [facility] ASPARTATE AMINOTRANSFERASE 2022-04-14 Kaitlin Thompson V. [facility] 15:19:[address] [facility] TOTAL PROTEIN 2022-04-14 Kaitlin Thompson V. [facility] 15:19:[address] [facility] FRACTIONATED BILIRUBIN 2022-04-14 Kaitlin Thompson V. [facility] 15:19:[address] [facility] CORTISOL 2022-04-08 Elvin Diez [facility] 16:08:00 [facility] MAGNESIUM LEVEL 2022-04-08 Juan F Dinero [facility] 07:33:[address] [facility] PHOSPHORUS LEVEL 2022-04-08 Juan F Dinero [facility] 07:33:00 [facility] COMPLETE BLOOD COUNT W/ 2022-04-08 Juan F Dinero [facility] DIFFERENTIAL 07:33:00 [facility] BASIC METABOLIC PANEL, 2022-04-08 Juan F Dinero [facility] CALCIUM TOTAL 07:33:00 [facility] GLUCOSE LEVEL 2022-04-08 Juan F Dinero [place] 07:33:00 [facility] BLOOD UREA NITROGEN 2022-04-08 Juan F Dinero [facility] 07:33:00 [facility] ELECTROLYTE PANEL 2022-04-08 Juan F Dinero [facility] 07:33:00 [facility] SERUM CREATININE 2022-04-08 Juan F Dinero [facility] 07:33:00 [facility] .GLOMERULAR FILTRATION RATE 2022-04-08 Juan F Dinero [facility] 07:33:00 [facility] CALCIUM LEVEL TOTAL 2022-04-08 Juan F Dinero [facility] 07:33:00 [facility] Results CBC 2022-04-08 Juan F Dinero [place] [facility] [place] 07:33:00 [facility] MANUAL DIFFERENTIAL 2022-04-08 Juan F Dinero [facility] 07:33:00 [facility] HEMOGLOBIN 2022-04-07 Chacha Mensah [facility] [place] 22:16:00 [facility] OSMOLALITY URINE 2022-04-07 [facility] [place] 20:26:00 [facility] SODIUM URINE 2022-04-07 [facility] [place] 20:26:00 [facility] POTASSIUM LEVEL URINE 2022-04-07 [facility] 20:26:00 [facility] CHLORIDE LEVEL URINE 2022-04-07 [facility] 20:26:00 [facility] CREATININE URINE, RANDOM 2022-04-07 [facility] 20:26:00 [facility] MRI PITUITARY W WO CONTRAST 2022-04-07 Elvin Diez [facility] 19:05:19 [facility] ADD ON 2022-04-07 Chacha Mensah [facility] TEST 18:39:00 [facility] SEDIMENTATION RATE 2022-04-07 Diez, [facility] NON-AUTOMATED 15:32:00 [facility]. [facility] C REACTIVE PROTEIN 2022-04-07 [facility] [place] 15:32:00 [facility] TESTOSTER[facility]EL [facility]22[facility]04[facility]07 [facility] ADRENOCORTICOTROPIC HORMONE 2022-04-07 Diez, [facility] 15:32:00 [facility] FOLLICLE STIMULATING HORMONE 2022-04-[address] [facility] LEVEL 15:32:00 [facility] LUTEINIZING HORMONE 2022-04-07 [facility] 15[facility]32:00 [facility] PROLACTIN 2022-04-07 [facility] 15:32:00 [facility] CORTISOL 2022-04-07 [facility] 15:32:00 [facility] MAGNESIUM LEVEL 2022-04-07 Juan F Dinero [place] 06:56:00 [facility] PHOSPHORUS LEVEL 2022-04-07 Juan F Dinero [facility] 06:56:00 [facility] COMPLETE BLOOD COUNT W/ 2022-04-07 Juan F Dinero [facility] DIFFERENTIAL 06:56:00 [facility] BASIC METABOLIC PANEL, 2022-04-07 Juan F Dinero [facility] CALCIUM TOTAL 06:56:00 [facility] THYROID STIMULATING HORMONE 2022-04-07 Juan F Dinero [facility] 06:56:00 [facility] FREE THYROXINE 2022-04-07 Juan F Dinero [place] 06:56:00 [facility] SODIUM LEVEL 2022-04-07 Juan F Dinero [place] [facility] 06:56:00 [facility] GLUCOSE LEVEL 2022-04-07 Juan F Dinero [place] 06:56:00 [facility] BLOOD UREA NITROGEN 2022-04-07 Juan F Dinero [facility] 06:56:00 [facility] ELECTROLYTE PANEL 2022-04-07 Juan F Dinero [facility] 06:56:00 [facility] SERUM CREATININE 2022-04-07 Juan F Dinero [facility] 06:56:00 [facility] .GLOMERULAR FILTRATION RATE 2022-04-07 Juan F Dinero [facility] 06:56:00 [facility] CALCIUM LEVEL TOTAL 2022-04-07 Juan F Dinero [facility] 06:56:00 [facility] Results CBC 2022-04-07 Juan F Dinero [facility] 06:56:00 [facility] MANUAL DIFFERENTIAL 2022-04-07 Juan F Dinero [facility] 06:56:[address] [facility] CT HEAD WO CONTRAST 2022-04-07 Juan F Dinero [facility] 05:53:19 [facility] OSMOLALITY 2022-04-07 [facility] [place] 02:18:00 [facility] OSMOLALITY URINE 2022-04-07 [facility] [place] 02:18:00 [facility] SODIUM URINE 2022-04-07 [facility] [place] 02:18:00 [facility] COVID-19 (SARS-COV-2) 2022-04-07 [facility] ASYMPTOMATIC-LT 02:05:00 [facility] POC CHEM 8 2022-04-07 [facility] [place] 01:22:00 [facility] URINE CULTURE 2022-04-06 Radha Sanders [facility] [place] 23:18:00 [facility] URINALYSIS WITH MICROSCOPIC 2022-04-06 Tommy [facility] IF INDICATED 23:18:00 [facility] COMPLETE BLOOD COUNT W/ 2022-04-06 Tommy [facility] DIFFERENTIAL 23:18:00 [facility] PROTHROMBIN TIME 2022-04-06 Tommy [facility] [place] 23:18:00 [facility] APTT 2022-04-06 Tommy [facility] [place] 23:18:00 [facility] COMPREHENSIVE METABOLIC PANEL 2022-04-06 Tommy [facility] 23:18:00 [facility] LACTATE DEHYDROGENASE 2022-04-06 Tommy [facility] 23:18:00 [facility] MAGNESIUM LEVEL 2022-04-06 Tommy [facility] [place] 23:18:00 [facility] PHOSPHORUS LEVEL 2022-04-06 Tommy [facility] [place] 23:18:00 [facility] Results CBC 2022-04-06 Tommy [facility] [place] 23:18:00 [facility] MANUAL DIFFERENTIAL 2022-04-06 Tommy [facility] 23:18:00 [facility] GLUCOSE LEVEL 2022-04-06 Tommy [facility] [place] 23:18:00 [facility] BLOOD UREA NITROGEN 2022-04-06 Tommy [facility] 23:18:00 [facility] ELECTROLYTE PANEL 2022-04-06 Tommy [facility] 23:18:00 [facility] SERUM CREATININE 2022-04-06 [facility] 23:18:00 [facility] .GLOMERULAR FILTRATION RATE 2022-04-06 Tommy [facility] 23:18:00 [facility] CALCIUM LEVEL TOTAL 2022-04-06 [facility] 23:18:00 [facility] ALBUMIN LEVEL 2022-04-06 Tommy [facility] [place] 23:18:00 [facility] ALKALINE PHOSPHATASE 2022-04-06 [facility] 23:18[facility]00 [facility] ALANINE AMINOTRANSFERASE 2022-04-06 [facility] 23:18:00 [facility] ASPARTATE AMINOTRANSFERASE 2022-04-[facility] 23:18:00 [facility] TOTAL PROTEIN 2022-04-06 [facility] 23:18:00 [facility] FRACTIONATED BILIRUBIN 2022-04-06 [facility] 23:18:00 [facility] URINALYSIS MICROSCOPIC 2022-04-06 [facility] 23:18:00 [facility] PATHOLOGY SURGICAL 2022-03-31 [facility] INTERPRETATION 21:28:00 [facility] CYSTOURETHROSCOPY WITH 2022-03-31 [facility]/OR TREATMENT 20:04:00 [facility] 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) COVID-19 (SARS-COV-2) 2022-03-28 [facility] PCR-ASYMPTOMATIC MC 16:03:00 [facility] URINE CULTURE 2022-03-28 [facility] [place] 15:54:13 [facility] TYPE AND SCREEN 2022-03-28 [facility] 15:54:13 [facility] URINALYSIS MICROSCOPIC 2022-03-28 [facility] 15:54:13 [facility] ABORH 2022-03-28 [facility] [place] 15:54:13 [facility] URINALYSIS WITH MICROSCOPIC 2022-03-28 [facility] IF INDICATED 15:54:13 [facility] ANTIBODY SCREEN 2022-03-28 [facility] [place] 15:54:13 [facility] CLOT EXPIRATION DATE 2022-03-28 Shayne Mccannha Ranjana [facility] 15:54:13 [facility] TMP INTERPRETATION ANTIBODY 2022-03-28 Ricardo Mccann [facility] SCREEN NEGATIVE 15:54:13 [facility] COMPLETE BLOOD COUNT W/ 2022-03-18 Bria Blackwood [facility] DIFFERENTIAL 18:56:21 [facility] COMPREHENSIVE METABOLIC PANEL 2022-03-18 [facility] 18:56:21 [facility] FERRITIN LVL 2022-03-18 Bria Blackwood [facility] [place] 18:56:21 [facility] VITAMIN B12 LEVEL 2022-03-18 Bria Blackwood [facility] 18:56:21 [facility] Results CBC 2022-03-18 Bria Blackwood [facility] [place] 18:56:21 [facility] MANUAL DIFFERENTIAL 2022-03-18 Bria Blackwood [place] [facility] 18:56:21 [facility] GLUCOSE LEVEL 2022-03-18 Bria Blackwood [facility] 18:56:21 [facility] BLOOD UREA NITROGEN 2022-03-18 Bria Blackwood [place] [facility] 18:56:21 [facility] ELECTROLYTE PANEL 2022-03-18 Bria Blackwood [facility] 18:56:21 [facility] SERUM CREATININE 2022-03-18 [facility] 18:56:21 [facility] .GLOMERULAR FILTRATION RATE 2022-03-18 Bria Blackwood [facility] 18:56:21 [facility] CALCIUM LEVEL TOTAL 2022-03-18 Bria Blackwood [place] 18:56:21 [facility] ALBUMIN LEVEL 2022-03-18 Bria Blackwood [facility] 18:56:21 [facility] ALKALINE PHOSPHATASE 2022-03-18 Bria Blackwood [facility] 18:56:21 [facility] ALANINE AMINOTRANSFERASE 2022-03-18 Bria Blackwood [facility] 18:56:21 [facility] ASPARTATE AMINOTRANSFERASE 2022-03-18 Bria Blackwood [facility] 18:56:21 [facility] TOTAL PROTEIN 2022-03-18 Bria Blackwood [facility] 18:56:21 [facility] FRACTIONATED BILIRUBIN 2022-03-18 Bria Blackwood [facility] 18:56:21 [facility] COMPLETE BLOOD COUNT W/ 2022-03-04 Kaitlin Thompson V. [facility] DIFFERENTIAL 13:34:00 [facility] COMPREHENSIVE METABOLIC PANEL 2022-03-04 Kaitlin Thompson V. [facility] 13:34:00 [facility] MAGNESIUM LEVEL 2022-03-04 Kaitlin Thompson V. [facility] 13:34:00 [facility] THYROID STIMULATING HORMONE 2022-03-[address] [facility] 13:34:00 [facility] FREE THYROXINE 2022-03-04 Kaitlin Thompson V. [facility] 13:34:00 [facility] Results CBC 2022-03-04 Kaitlin Thompson V. [facility] 13:34:00 [facility] MANUAL DIFFERENTIAL 2022-03-04 Kaitlin Thompson V. [facility] 13:34:00 [facility] GLUCOSE LEVEL 2022-03-04 Kaitlin Thompson V. [facility] 13:34:00 [facility] BLOOD UREA NITROGEN 2022-03-04 Kaitlin Thompson V. [facility] 13:34:00 [facility] ELECTROLYTE PANEL 2022-03-04 Kaitlin Thompson V. [facility] 13:34:00 [facility] SERUM CREATININE 2022-03-04 Kaitlin Thompson V. [facility] 13:34:00 [facility] .GLOMERULAR FILTRATION RATE 2022-03-[address] [facility] 13:34:00 [facility] CALCIUM LEVEL TOTAL 2022-03-04 Kaitlin Thompson V. [facility] 13:34:00 [facility] ALBUMIN LEVEL 2022-03-04 Kaitlin Thompson V. [facility] 13:34:00 [facility] ALKALINE PHOSPHATASE 2022-03-04 Kaitlin Thompson V. [facility] 13:34:00 [facility] ALANINE AMINOTRANSFERASE 2022-03-04 Kaitlin Thompson V. [facility] 13:34:00 [facility] ASPARTATE AMINOTRANSFERASE 2022-03-04 [facility] 13:34:00 [facility] TOTAL PROTEIN 2022-03-04 Kaitlin Thompson V. [facility] 13:34:00 [facility] FRACTIONATED BILIRUBIN 2022-03-04 Kaitlin Thompson V. [facility] 13:34:00 [facility] PATHOLOGY SURGICAL 2022-02-19 [facility] 17:24:00 [facility] CYSTOURETHROSCOPY WITH 2022-02-19 Arnaud [facility] FULGURATION AND/OR TREATMENT 15:59:00 [facility] OF LARGE LESION(S) (>5.0 CM) Ana ter CT ABDOMEN PELVIS W WO 2022-02-18 [facility] CONTRAST UROGRAM 14:02:00 [facility] POC CREATININE 2022-02-18 [address] [facility] 12:49:00 [facility] COVID-19 (SARS-COV-2) PCR 2022-02-17 Carrillo Ksrajesh [facility] ASYMPTOMATIC 16:16:00 [facility] URINE CULTURE 2022-02-17 [facility] [place] 15:51:37 [facility] TYPE AND SCREEN 2022-02-17 [facility] [place] 15:51:37 [facility] PROTHROMBIN TIME 2022-02-17 Ramy [facility] [place] 15:51:37 [facility] HEMOGLOBIN A1C 2022-02-17 [facility] [place] 15:51:37 [facility] URINALYSIS MICROSCOPIC 2022-02-17 Shed, [facility] 15:51:37 [facility] APTT 2022-02-17 [facility] 15:51:37 [facility] ABORH 2022-02-17 [facility] [place] 15:51:37 [facility] ANTIBODY SCREEN 2022-02-17 [facility] [place] 15:51:37 [facility] URINALYSIS WITH MICROSCOPIC 2022-02-17 [facility] IF INDICATED 15:51:37 [facility] CLOT EXPIRATION DATE 2022-02-17 [facility] 15:51:37 [facility] TMP INTERPRETATION ANTIBODY 2022-02-17 [facility] SCREEN NEGATIVE 15:51:37 [facility] COMPLETE BLOOD COUNT W/ 2022-02-04 Kaitlin Thompson V. [facility] DIFFERENTIAL 13:05:00 [facility] COMPREHENSIVE METABOLIC PANEL 2022-02-04 Kaitlin Thompson V. [facility] 13:05:00 [facility] MAGNESIUM LEVEL 2022-02-04 Kaitlin Thompson V. [facility] 13:05:00 [facility] THYROID STIMULATING HORMONE 2022-02-[address] [facility] 13:05:00 [facility] FREE THYROXINE 2022-02-04 Kaitlin Thompson V. [facility] 13:05:00 [facility] ADRENOCORTICOTROPIC HORMONE 2022-02-[address] [facility] 13:05:00 [facility] CORTISOL 2022-02-04 Kaitlin Thompson V. [facility] 13:05:00 [facility] Results CBC 2022-02-04 Kaitlin Thompson V. [facility] 13:05:00 [facility] GLUCOSE LEVEL 2022-02-04 Kaitlin Thompson V. [facility] 13:05:00 [facility] BLOOD UREA NITROGEN 2022-02-04 Kaitlin Tohmpson V. [facility] 13:05:00 [facility] ELECTROLYTE PANEL 2022-02-04 Kaitlin Thompson V. [facility] 13:05:00 [facility] SERUM CREATININE 2022-02-04 Kaitlin Thompson V. [facility] 13:05:00 [facility] .GLOMERULAR FILTRATION RATE 2022-02-[address] [facility] 13:05:00 [facility] CALCIUM LEVEL TOTAL 2022-02-04 Kaitlin Thompson V. [facility] 13:05:00 [facility] ALBUMIN LEVEL 2022-02-04 Kaitlin Thompson V. [facility] 13:05:00 [facility] ALKALINE PHOSPHATASE 2022-02-04 Kaitlin hTompson V. [facility] 13:05:00 [facility] ALANINE AMINOTRANSFERASE 2022-02-04 Kaitlin Thopmson V. [facility] 13:05:00 [facility] ASPARTATE AMINOTRANSFERASE 2022-02-04 Kaitlin Thompson V. [facility] 13:05:00 [facility] TOTAL PROTEIN 2022-02-04 Kaitlin Thompson V. [facility] 13:05:00 [facility] FRACTIONATED BILIRUBIN 2022-02-04 Kaitlin Thompson V. [facility] 13:05:00 [facility] MANUAL DIFFERENTIAL 2022-02-04 Kaitlin Thompson V. [facility] 13:05:00 [facility] OSI CT ABDOMEN AND PELVIS 2022-01-26 [address] [facility] 20:12:00 [facility] COMPLETE BLOOD COUNT W/ 2022-01-01 Nicolette Mosher [facility] DIFFERENTIAL 14:58:00 [facility] COMPREHENSIVE METABOLIC PANEL 2022-01-01 [facility] 14:58[facility]00 [facility] FREE THYROXINE 2022-01-[address] [facility] 14:58:00 [facility] MAGNESIUM LEVEL 2022-01-01 [facility] 14:58:00 [facility] TOTAL T3 2022-01-01 [facility] 14:58:00 [facility] THYROID STIMULATING HORMONE 2022-01-01 Nicolette Mosher [facility] 14:58:00 [facility] URIC ACID 2022-01-01 [facility] 14:58:00 [facility] Results CBC 2022-01-01 [facility] 14:58:00 [facility] MANUAL DIFFERENTIAL 2022-01-01 [facility] 14:58:00 [facility] GLUCOSE LEVEL 2022-01-01 [facility] 14:58:00 [facility] BLOOD UREA NITROGEN 2022-01-01 [facility] 14:58:00 [facility] ELECTROLYTE PANEL 2022-01-01 [facility] 14:58:00 [facility] SERUM CREATININE 2022-01-01 [facility] 14:58:00 [facility] .GLOMERULAR FILTRATION RATE 2022-01-01 Nicolette Mosher [facility] 14:58:00 [facility] CALCIUM LEVEL TOTAL 2022-01-01 [facility] 14:58:00 [facility] ALBUMIN LEVEL 2022-01-01 [facility] 14:58:00 [facility] ALKALINE PHOSPHATASE 2022-01-01 Nicolette Mosher [facility] 14:58:00 [facility] ALANINE AMINOTRANSFERASE 2022-01-01 Nicolette Mosher [facility] 14:58:00 [facility] ASPARTATE AMINOTRANSFERASE 2022-01-01 Nicolette Mosher [facility] 14:58:00 [facility] TOTAL PROTEIN 2022-01-[address] [facility] 14:58:00 [facility] FRACTIONATED BILIRUBIN 2022-01-01 Nicolette Mosher [facility] 14:58:00 [facility] OSI CT BRAIN 2021-12-30 [facility] 20:17:00 [facility]SI CT CHEST 2021-12-30 [facility] 20:13:00 [facility] ECHOCARDIOGRAM 2D COMPLETE 2021-12-23 Nicolette Mosher Patricia [facility] 20:33:47 [facility] XR CHEST 2 VW 2021-12-23 [facility] 18:06:47 [facility] PROTHROMBIN TIME 2021-12-23 [facility] 18:05:00 [facility] PETCT SUBSEQUENT TREATMENT 2021-12-09 Kaitlin Thompson V. [facility] STRATEGY 17:36:49 [facility] COMPLETE BLOOD COUNT W/ 2021-12-09 Kaitlin Thompson V. [facility] DIFFERENTIAL 15:00:31 [facility] COMPREHENSIVE METABOLIC PANEL 2021-12-09 Kaitlin Thompson V. [facility] 15:00:31 [facility] MAGNESIUM LEVEL 2021-12-09 Kaitlin Thompson V. [facility] 15:00:31 [facility] THYROID STIMULATING HORMONE 2021-12-[address] [facility] 15:00:31 [facility] FREE THYROXINE 2021-12-09 Kaitlin Thompson V. [facility] 15:00:31 [facility] Results CBC 2021-12-09 Kaitlin Thompson V. [facility] 15:00:31 [facility] MANUAL DIFFERENTIAL 2021-12-09 Kaitlin Thompson V. [facility] 15:00:31 [facility] GLUCOSE LEVEL 2021-12-09 Kaitlin Thompson V. [facility] 15:00:31 [facility] BLOOD UREA NITROGEN 2021-12-09 Kaitlin Thompson V. [facility] 15:00:31 [facility] ELECTROLYTE PANEL 2021-12-09 Kaitlin Thompson V. [facility] 15:00:31 [facility] SERUM CREATININE 2021-12-09 Kaitlin Thompson V. [facility] 15:00:31 [facility] .GLOMERULAR FILTRATION RATE 2021-12-[address] [facility] 15:00:31 [facility] CALCIUM LEVEL TOTAL 2021-12-09 Kaitlin Thompson V. [facility] 15:00:31 [facility] ALBUMIN LEVEL 2021-12-09 Kaitlin Thompson V. [facility] 15:00:31 [facility] ALKALINE PHOSPHATASE 2021-12-09 Kaitlin Thompson V. [facility] 15:00:31 [facility] ALANINE AMINOTRANSFERASE 2021-12-09 Kaitlin Thompson V. [facility] 15:00:31 [facility] ASPARTATE AMINOTRANSFERASE 2021-12-09 Kaitlin Thompson V. [facility] 15:00:31 [facility] TOTAL PROTEIN 2021-12-09 Kaitlin Thompson V. [facility] 15:00:31 [facility] FRACTIONATED BILIRUBIN 2021-12-09 Kaitlin Thompson V. [facility] 15:00:31 [facility] OSI CHEST 2021-11-19 [facility] 21:19[facility]00 [facility] GENERAL LABORATORY ADD ON 2021-11-13 [facility] TEST 21:45:00 [facility] COMPLETE BLOOD COUNT W/ 2021-11-13 [facility] DIFFERENTIAL 14:54:00 [facility] COMPREHENSIVE METABOLIC PANEL 2021-11-13 [facility] 14:54:00 [facility] MAGNESIUM LEVEL 2021-11-13 [facility] 14:54:00 [facility] GLUCOSE LEVEL 2021-11-13 [facility] 14:54:00 [facility] BLOOD UREA NITROGEN 2021-11-13 [facility] 14:54:00 [facility] ELECTROLYTE PANEL 2021-11-13 [facility] 14:54:00 [facility] SERUM CREATININE 2021-11-13 [facility] 14:54[facility]00 [facility] .GLOMERULAR FILTRATION RATE 2021-11-13 [facility] CALCIUM LEVEL TOTAL 2021-11-13 [facility] 14:[facility]00 [facility] ALBUMIN LEVEL 2021-11-13 [facility] 14:54:00 [facility] ALKALINE [facility]OSPHATASE 2021-11-13 [facility] 14:[facility]00 [facility] ALANINE AMINOTRANSFERASE 2021-11-13 [facility] [place] 14:54:00 [facility] ASPARTATE AMINOTRANSFERASE 2021-11-13 Nicolette Mosher [facility] 14:54:00 [facility] TOTAL PROTEIN 2021-11-13 [facility] 14:54:00 [facility] FRACTIONATED BILIRUBIN 2021-11-13 [facility] 14:54[facility]00 [facility] Results CBC 2021-11-13 [facility] 14:54:00 [facility] MANUAL DIFFERENTIAL 2021-11-13 [facility] 14:54:00 [facility] FREE THYROXINE 2021-11-13 [facility] 14:54:00 [facility] THYROID STIMULATING HORMONE 2021-11-13 Nicolette Mosher [facility] 14:54:00 [facility] COMPLETE BLOOD COUNT W/ 2021-10-15 Kaitlin Thompson V. [facility] DIFFERENTIAL 16:56:00 [facility] COMPREHENSIVE METABOLIC PANEL 2021-10-15 Kaitlin Thompson V. [facility] 16:56:00 [facility] MAGNESIUM LEVEL 2021-10-15 Kaitlin Thompson V. [facility] 16:56:00 [facility] THYROID STIMULATING HORMONE 2021-10-[address] [facility] 16:56:00 [facility] FREE THYROXINE 2021-10-15 Kaitlin Thompson V. [facility] 16:56:00 [facility] Results CBC 2021-10-15 Kaitlin Thompson V. [facility] 16:56:00 [facility] MANUAL DIFFERENTIAL 2021-10-15 Kaitlin Thompson V. [facility] 16:56:00 [facility] GLUCOSE LEVEL 2021-10-15 Kaitlin Thompson V. [facility] 16:56:00 [facility] BLOOD UREA NITROGEN 2021-10-15 Kaitlin Thompson V. [facility] 16:56:00 [facility] ELECTROLYTE PANEL 2021-10-15 Kaitlin Thompson V. [facility] 16:56:00 [facility] SERUM CREATININE 2021-10-15 Kaitlin Thompson V. [facility] 16:56:00 [facility] .GLOMERULAR FILTRATION RATE 2021-10-[address] [facility] 16:56:00 [facility] CALCIUM LEVEL TOTAL 2021-10-15 Kaitlin Thompson V. [facility] 16:56:00 [facility] ALBUMIN LEVEL 2021-10-15 Kaitlin Thompson V. [facility] 16:56:00 [facility] ALKALINE PHOSPHATASE 2021-10-15 Kaitlin Thompson V. [facility] 16:56:00 [facility] ALANINE AMINOTRANSFERASE 2021-10-15 Kaitlin Thompson V. [facility] 16:56:00 [facility] ASPARTATE AMINOTRANSFERASE 2021-10-15 Kaitlin Thompson V. [facility] 16:56:00 [facility] TOTAL PROTEIN 2021-10-15 Kaitlin Thompson V. [facility] 16:56:00 [facility] FRACTIONATED BILIRUBIN 2021-10-15 Kaitlin Thompson V. [facility] 16:56:00 [facility] CT CHEST W CONTRAST 2021-10-15 Nicolette Mosher [facility] 15:56:00 [facility] POC CREATININE 2021-10-15 Nicolette Mosher [facility] 15:21:00 [facility] PATHOLOGY BIOPSY 2021-09-30 Emil [facility] INTERPRETATION 14:31:00 [facility] EXCISION 2021-09-30 Emil [facility] 14:30:02 [facility] EXCISION 2021-09-30 [facility] 14:29:55 [facility] 14:29[facility]50 [facility] MOHS SITE 1 2021-09-30 [facility] 14:29:44 [facility] COMPLETE BLOOD COUNT W/ 2021-09-18 Kaitlin Thompson V. [facility] DIFFERENTIAL 16:30:00 [facility] COMPREHENSIVE METABOLIC PANEL 2021-09-18 Kaitlin Thompson V. [facility] 16:30:00 [facility] MAGNESIUM LEVEL 2021-09-18 Kaitlin Thompson V. [facility] 16:30:00 [facility] THYROID STIMULATING HORMONE 2021-09-18 [facility]ait[facility] V. [facility] 16:30:00 [facility] FREE THYROXINE 2021-09-18 Kaitlin Thompson V. [facility] 16:30:00 [facility] Results CBC 2021-09-18 Kaitlin Thompson V. [facility] 16:30:00 [facility] MANUAL DIFFERENTIAL 2021-09-18 Kaitlin Thompson V. [facility] 16:30:00 [facility] GLUCOSE LEVEL 2021-09-18 Kaitlin Thompson V. [facility] 16:30:00 [facility] BLOOD UREA NITROGEN 2021-09-18 Kaitlin Thompson V. [facility] 16:30:00 [facility] ELECTROLYTE PANEL 2021-09-18 Kaitlin Thompson V. [facility] 16:30:00 [facility] SERUM CREATININE 2021-09-18 Kaitlin Thompson V. [facility] 16:30:00 [facility] .GLOMERULAR FILTRATION RATE 2021-09-18 [facility]. [facility] 16:30:00 [facility] CALCIUM LEVEL TOTAL 2021-09-18 Kaitlin Thompson V. [facility] 16:30:00 [facility] ALBUMIN LEVEL 2021-09-18 Kaitlin Thompson V. [facility] 16:30:00 [facility] ALKALINE PHOSPHATASE 2021-09-18 Kaitlin Thompson V. [facility] 16:30:00 [facility] ALANINE AMINOTRANSFERASE 2021-09-18 Kaitlin Thompson V. [facility] 16:30:00 [facility] ASPARTATE AMINOTRANSFERASE 2021-09-18 Kaitlin Thompson V. [facility] 16:30:00 [facility] TOTAL PROTEIN 2021-09-18 Kaitlin Thompson V. [facility] 16:30:00 [facility] FRACTIONATED BILIRUBIN 2021-09-18 Kaitlin Thompson V. [facility] 16:30:00 [facility] PATHOLOGY BIOPSY 2021-08-21 Nahed Bertrand [facility] INTERPRETATION 16:17:00 [facility] CT CHEST W CONTRAST 2021-08-20 Kaitlin Thompson V. [facility] 16:32:00 [facility] POC CREATININE 2021-08-20 Provider, Unknown [facility] 16:03:00 [facility] COMPLETE BLOOD COUNT W/ 2021-08-20 Kaitlin Thompson V. [facility] DIFFERENTIAL 15:23:36 [facility] COMPREHENSIVE METABOLIC PANEL 2021-08-20 Kaitlin Thompson V. [facility] 15:23:36 [facility] MAGNESIUM LEVEL 2021-08-20 Kaitlin Thompson V. [facility] 15:23:36 [facility] THYROID STIMULATING HORMONE 2021-08-[address] [facility] 15:23:36 [facility] FREE THYROXINE 2021-08-20 Kaitlin Thompson V. [facility] 15:23:36 [facility] Results CBC 2021-08-20 Kaitlin Thompson V. [facility] 15:23:36 [facility] MANUAL DIFFERENTIAL 2021-08-20 Kaitlin Thompson V. [facility] 15:23:[address] [facility] GLUCOSE LEVEL 2021-08-20 Kaitlin Thompson V. [facility] 15:23:36 [facility] BLOOD UREA NITROGEN 2021-08-20 Kaitlin Thompson V. [facility] 15:23:36 [facility] ELECTROLYTE PANEL 2021-08-20 Kaitlin Thompson V. [facility] 15:23:36 [facility] SERUM CREATININE 2021-08-20 Kaitlin Thompson V. [facility] 15:23:36 [facility] .GLOMERULAR FILTRATION RATE 2021-08-[address] [facility] 15:23:36 [facility] CALCIUM LEVEL TOTAL 2021-08-20 Kaitlin Thompson V. [facility] 15:23:36 [facility] ALBUMIN LEVEL 2021-08-20 Kaitlin Thompson V. [facility] 15:23:36 [facility] ALKALINE PHOSPHATASE 2021-08-20 Kaitlin Thompson V. [facility] 15:23:36 [facility] ALANINE AMINOTRANSFERASE 2021-08-20 Kaitlin Thompson V. [facility] 15:23:36 [facility] ASPARTATE AMINOTRANSFERASE 2021-08-20 Kaitlin Thompson V. [facility] 15:23:36 [facility] TOTAL PROTEIN 2021-08-20 Kaitlin Thompson V. [facility] 15:23:36 [facility] FRACTIONATED BILIRUBIN 2021-08-20 Kaitlin Thompson V. [facility] 15:23:36 [facility] COMPLETE BLOOD COUNT W/ 2021-07-24 Kaitlin Thompson V. [facility] DIFFERENTIAL 19:10:00 [facility] COMPREHENSIVE METABOLIC PANEL 2021-07-24 Kaitlin Thompson V. [facility] 19:10:00 [facility] MAGNESIUM LEVEL 2021-07-24 Kaitlin Thompson V. [facility] 19:10:00 [facility] Results CBC 2021-07-24 Kaitlin Thompson V. [facility] 19:10:00 [facility] MANUAL DIFFERENTIAL 2021-07-24 Kaitlin Thompson V. [facility] 19:10:[address] [facility] GLUCOSE LEVEL 2021-07-24 Kaitlin Thompson V. [facility] 19:10:00 [facility] BLOOD UREA NITROGEN 2021-07-24 Kaitlin Thompson V. [facility] 19:10:00 [facility] ELECTROLYTE PANEL 2021-07-24 Kaitlin Thompson V. [facility] 19:10:00 [facility] SERUM CREATININE 2021-07-24 Kaitlin Thompson V. [facility] 19:10:00 [facility] .GLOMERULAR FILTRATION RATE 2021-07-[address] [facility] 19:10:00 [facility] CALCIUM LEVEL TOTAL 2021-07-24 Kaitlin Thompson V. [facility] 19:10:00 [facility] ALBUMIN LEVEL 2021-07-24 Kaitlin Thompson V. [facility] 19:10:00 [facility] ALKALINE PHOSPHATASE 2021-07-24 Kaitlin Thompson V. [facility] 19:10:00 [facility] ALANINE AMINOTRANSFERASE 2021-07-24 Kaitlin Thompson V. [facility] 19:10:00 [facility] ASPARTATE AMINOTRANSFERASE 2021-07-24 Kaitlin Thompson V. [facility] 19:10:00 [facility] TOTAL PROTEIN 2021-07-24 Kaitlin Thompson V. [facility] 19:10:00 [facility] FRACTIONATED BILIRUBIN 2021-07-24 Kaitlin Thompson V. [facility] 19:10:00 [facility] CT CHEST ABDOMEN W CONTRAST 2021-06-25 Nicolette Mosher [facility] 16:10:57 [facility] COMPLETE BLOOD COUNT W/ 2021-06-25 Kaitlin Thompson V. [facility] DIFFERENTIAL 13:36:16 [facility] COMPREHENSIVE METABOLIC PANEL 2021-06-25 Kaitlin Thompson V. [facility] 13:36:16 [facility] MAGNESIUM LEVEL 2021-06-25 Kaitlin Thompson V. [facility] 13:36:16 [facility] THYROID STIMULATING HORMONE 2021-06-[address] [facility] 13:36:16 [facility] FREE THYROXINE 2021-06-25 Kaitlin Thompson V. [facility] 13:36:16 [facility] Results CBC 2021-06-25 Kaitlin Thompson V. [facility] 13:36:16 [facility] MANUAL DIFFERENTIAL 2021-06-25 Kaitlin Thompson V. [facility] 13:36:16 [facility] GLUCOSE LEVEL 2021-06-25 Kaitlin Thompson V. [facility] 13:36:16 [facility] BLOOD UREA NITROGEN 2021-06-25 [facility] 13:36:16 [facility] ELECTROLYTE PANEL 2021-06-25 Kaitlin Thompson V. [facility] 13:36:16 [facility] SERUM CREATININE 2021-06-25 Kaitlin Thompson V. [facility] 13:36:16 [facility] .GLOMERULAR FILTRATION RATE 2021-06-[address] [facility] 13:36:16 [facility] CALCIUM LEVEL TOTAL 2021-06-25 Kaitlin Thompson V. [facility] 13:36:16 [facility] ALBUMIN LEVEL 2021-06-25 [facility] 13:36:16 [facility] ALKALINE PHOSPHATASE 2021-06-25 Kaitlin Thompson V. [facility] 13:36:16 [facility] ALANINE AMINOTRANSFERASE 2021-06-25 Kaitlin Thompson V. [facility] 13:36:16 [facility] ASPARTATE AMINOTRANSFERASE 2021-06-25 Kaitlin Thompson V. [facility] 13:36:16 [facility] TOTAL PROTEIN 2021-06-25 [facility] 13:36:16 [facility] FRACTIONATED BILIRUBIN 2021-06-25 Kaitlin Thompson V. [facility] 13:36:16 [facility] Encounters Start End Encounter Admission Attending Care Care Encounter Source Date/Time Date/Time Type Type Clinicians Facility Department ID 2022-01-06 Outpatient SYSTEM, DENNY BALDWIN [id number] 07:00:44 PROVIDER Mustapha sol 2022-05-24 2022-05-24 Nurse Morris, 1.2.840.1 [id number] Univers 00:00:00 00:00:00 Triage Alonso 41895.1.1 ity of 3.412.2.7 [place] .3.227238 MD Ricketts8 [facility] 2022-05-22 2022-05-22 Telemedici Kali, 1.2.840.1 [id number] Univers 10:30:00 10:41:31 [place] 86651.1.1 ity of 3.412.2.7 [place] .3.877661 MD Song [facility] 2022-05-22 2022-05-22 Outpatient JAMES TURPIN MDA [facility] [id number] 10:08:21 10:41:31 PARISH sol 2022-05-22 2022-05-22 Telephone Shed, 1.2.840.1 [id number] Univers 00:00:00 00:00:00 Ricardo Chilel 04537.1.1 ity of 3.412.2.7 [place] .3.792714 MD Song [facility] 2022-05-22 2022-05-22 Telephone Wilian, 1.2.840.1 [id number] Univers 00:00:00 00:00:00 Rosalia 54780.1.1 it y of 3.412.2.7 [place] .3.889554 MD Ricketts8 [facility] 2022-05-21 2022-05-21 Clinical Shed, Ricardo Chilel 1.2.840.1 [id number] Univers 10:00:00 11:39:56 Support Rosalia Cedeno 98583.1.1 ity of 3.412.2.7 [place] .3.853901 MD Song [facility] 2022-05-21 2022-05-21 Outpatient EL SHED, [facility] [id number] MD 09:31:07 11:39:56 RICARDO Luciano nadeem sol 2022-05-21 2022-05-21 Travel 1.2.840.1 1.2.613.566 [id number] Univers 00:00:00 00:00:00 67991.1.1 350.1.13.41 ity of 3.412.2.[place].698 [place] .3.936589 084.8 MD Ricketts8 [facility] 2022-05-20 2022-05-20 Telephone Wilian, 1.2.840.1 [id number] Univers 00:00:00 00:00:00 Rosalia 63197.1.1 it y of 3.412.2.7 [place] .3.856329 MD Ricketts8 [facility] 2022-05-20 2022-05-20 Orders Shed, 1.2.840.1 [id number] Univers 00:00:00 00:00:00 Only Ricardo Chilel 74381.1.1 ity of 3.412.2.7 [place] .3.303956 MD Ricketts8 [facility] 2022-05-20 2022-05-20 Telephone Wilian, 1.2.840.1 [id number] Univers 00:00:00 00:00:00 Rosalia 38687.1.1 it y of 3.412.2.7 [place] .3.872696 MD Ricketts8 [facility] 2022-05-13 2022-05-13 Telephone Wilian, 1.2.840.1 [id number] Univers 00:00:00 00:00:00 Rosalia 90614.1.1 it y of 3.412.2.7 [place] .3.387130 MD Ricketts8 [facility] 2022-05-13 2022-05-13 Orders Shed, 1.2.840.1 [id number] Univers 00:00:00 00:00:00 Only Ricardo Chilel 27234.1.1 ity of 3.412.2.7 [place] .3.521256 .8 [facility] 2022-05-13 2022-05-13 Telephone Wilian, 1.2.840.1 [id number] Univers 00:00:00 00:00:00 Rosalia 51138.1.1 it y of 3.412.2.7 [place] .3.955526 .8 [facility] 2022-05-02 2022-05-02 Telephone Shed, 1.2.840.1 [id number] Univers 00:00:00 00:00:00 Ricardo Chilel 34602.1.1 ity of 3.412.2.7 [place] .3.281028 .8 [facility] 2022-05-02 2022-05-02 Orders Adibi, 1.2.840.1 [id number] Univers 00:00:00 00:00:00 Only Mehrguevara 83234.1.1 ity of 3.412.2.7 [place] .3.572286 MD Ricketts8 [facility] 2022-05-01 2022-05-01 TelemedicMara Mitchell 1.2.840.1 [id number] Univers 11:40:00 11:49:34 ne Rp 90691.1.1 ity of 3.412.2.7 [place] .3.291101 .8 [facility] 2022-05-01 2022-05-01 Outpatient EL MARA HARMAN [facility] [id number] 10:00:10 11:49:34 [facility] 2022-05-01 2022-05-01 Telephone Shed, 1.2.840.1 [id number] Univers 00:00:00 00:00:00 Ricardo Chilel 29704.1.1 ity of 3.412.2.7 [place] .3.072459 MD Ricketts8 [facility] 2022-05-01 2022-05-01 Telephone Shed, 1.2.840.1 [id number] Univers 00:00:00 00:00:00 Ricardo E 21847.1.1 ity of 3.412.2.7 [place] .3.260608 MD Song [facility] 2022-05-01 2022-05-01 Orders Shed, 1.2.840.1 [id number] Univers 00:00:00 00:00:00 Only Ricardo E 91514.1.1 ity of 3.412.2.7 [place] .3.862856 MD Song [facility] 2022-04-21 2022-04-21 Infusion Jay, 1.2.840.1 [id number] Univers 11:15:00 13:09:07 Kaitlin Cisse 80022.1.1 ity of 3.412.2.7 [place] .3.682917 MD Song [facility] 2022-04-21 2022-04-21 Outpatient JAMES THOMPSON [facility] [id number] 11:05:17 13:09:07 KAITLIN silver 2022-04-21 2022-04-21 Travel 1.2.840.1 1.2.869.364 [id number] Univers 00:00:00 00:00:00 01042.1.1 350.1.13.41 ity of 3.412.2.[place].698 [place] .3.366972 084.8 MD Song [facility] 2022-04-18 2022-04-18 Orders Binks, 1.2.840.1 [id number] Univers 00:00:00 00:00:00 Only Eileen Cordero 86705.1.1 ity of 3.412.2.7 [place] .3.793133 MD Song [facility] 2022-04-17 2022-04-17 Telemedici Jay, 1.2.840.1 [id number] Univers 11:00:00 11:30:00 ne Kaitlin Cisse 90047.1.1 ity of 3.412.2.7 [place] .3.988785 MD Song [facility] 2022-04-17 2022-04-17 Outpatient JAMES THOMPSON MDA [facility] [id number] 08:13:02 08:13:02 KAITLIN sol 2022-04-14 2022-04-14 Clinical Ricardo Mccann 1.2.840.1 [id number] [facility] 10:30:00 11:00:00 Support Rosalia Cedeno 89714.1.1 ity of 3.412.2.7 [place] .3.591018 MD Ricketts8 [facility] 2022-04-14 2022-04-14 Outpatient JAMES THOMPSON [facility] [id number] 10:53:38 10:54:04 KAITLIN sol 2022-04-14 2022-04-14 Outpatient JAMES MCCANN [facility] [id number] [place] 10:19:20 10:19:20 RICARDO sol 2022-04-14 2022-04-14 Travel 1.2.840.1 1.2.344.062 [id number] Univers 00:00:00 00:00:00 57835.1.1 350.1.13.41 ity of 3.412.2.[place].3.698 [place] .3.5537[place] 084.8 MD Ricketts8 [facility] 2022-04-11 2022-04-11 Jordan Blackwood, 1.2.840.1 [id number] Univers 00:00:00 00:00:00 Only Bira Hubbard 70828.1.1 ity of 3.412.2.7 [place] .3.195308 MD Ricketts8 [facility] 2022-04-10 2022-04-10 Jordan Blackwood 1.2.840.1 [id number] Univers 00:00:00 00:00:00 Only Bria Hubbard 37678.1.1 ity of 3.412.2.7 [place] .3.176298 MD Song [facility] 2022-04-06 2022-04-08 Outpatient ROBSON TYLER [facility] Emergency [id number] 17:28:00 17:35:00 SUPRIYA sol 2022-04-06 2022-04-08 Emergency Derik Winslow 1.2.840.1 [id number] Univers 17:28:00 17:35:00 Elvin Diez 70781.1.1 ity of Supriya [place] 3.412.2.7 [place] .3.296297 MD Song [facility] 2022-04-08 2022-04-08 Orders Shed, 1.2.840.1 [id number] Univers 00:00:00 00:00:00 Only Ricardo Chilel 18810.1.1 ity of 3.412.2.7 [place] .3.983882 MD Song [facility] 2022-04-06 2022-04-06 Travel 1.2.840.1 1.2.376.014 [id number] Univers 00:00:00 00:00:00 11725.1.1 350.1.13.41 ity of 3.412.2.7 [place]7.3.698 [place] .3.918950 084.8 MD Song [facility] 2022-04-06 2022-04-06 Telephone Ren Walker 1.2.840.1 [id number] Univers 00:00:00 00:00:00 86504.1.1 ity of 3.412.2.7 [place] .3.409198 MD Song [facility] 2022-04-06 2022-04-06 Nurse Padilla 1.2.840.1 [id number] Univers 00:00:00 00:00:00 Triage Loren 24648.1.1 ity of [place] 3.412.2.7 Jared as .3.757178 MD Ricketts8 [facility] 2022-04-06 2022-04-06 Nurse Axel 1.2.840.1 [id number] Univers 00:00:00 00:00:00 Triage Nicolette F 86766.1.1 ity of 3.412.2.7 [place] .3.691529 MD Song [facility] 2022-04-03 2022-04-03 Clinical Ricardo Mccann 1.2.840.1 [id number] Univers 10:30:00 11:54:36 Support Gabriel Newsome 02084.1.1 ity of 3.412.2.7 [place] .3.522995 MD Ricketts8 [facility] 2022-04-03 2022-04-03 Outpatient JAMES MCCANN [facility] [id number] 10:29:17 11:54:36 RICARDO Mustapha nadeem 2022-04-03 2022-04-03 Travel 1.2.840.1 1.2.654.426 [id number] Univers 00:00:00 00:00:00 19341.1.1 350.1.13.41 ity of 3.412.2.7 2.[place]7.3.698 [place] .3.145552 084.8 .8 [facility] 2022-04-02 2022-04-02 Orders Ramy, 1.2.840.1 [id number] Univers 00:00:00 00:00:00 Only Ricardo Chilel 01186.1.1 ity of 3.412.2.7 [place] .3.081721 MD Ricketts8 [facility] 2022-04-01 2022-04-01 Telephone Placido, 1.2.840.1 [id number] 965 [id number] Univers 00:00:00 00:00:00 Karine Oakes 53724.1.1 ity of 3.412.2.7 [place] .3.382534 MD Ricketts8 [facility] 2022-04-01 2022-04-01 Orders Vidhi, 1.2.840.1 [id number] Univers 00:00:00 00:00:00 Only Nicolette 99762.1.1 it y of 3.412.2.7 [place] .3.158316 MD Ricketts8 [facility] 2022-03-31 2022-03-31 Outpatient JAMES VIZCAINO [facility] [id number] 10:09:00 19:19:00 MEHRAD Mustapha nadeem sol 2022-03-31 2022-03-31 Hospital [facility], 1.2.840.1 [id number] Univers 10:09:00 19:19:00 Encounter Merajesh 08161.1.1 it y of 3.412.2.7 [place] .3.714476 MD Song [facility] 2022-03-31 2022-03-31 Surgery Adib, 1.2.840.1 [id number] Univers 14:50:00 17:50:00 Mehrad 67527.1.1 ity of 3.412.2.7 [place] .3.540611 MD Song [facility] 2022-03-31 2022-03-31 Anesthesia Chris, 1.2.840.1 [id number] 1 [id number] Univers 15:34:00 16:59:00 Event Alberto 38319.1.1 ity of Dianelys 3.412.2.7 [place] .3.287991 MD Song [facility] 2022-03-31 2022-03-31 Telephone Darryl, 1.2.840.1 [id number] 1094 [id number] Univers 00:00:00 00:00:00 Saige N 82846.1.1 ity of 3.412.2.7 [place] .3.347020 MD Song [facility] 2022-03-31 2022-03-31 Travel 1.2.840.1 1.2.934.105 1988 [id number] Univers 00:00:00 00:00:00 70104.1.1 350.1.13.41 ity of 3.412.2.7 [place]7.3.698 [place] .3.274540 084.8 MD Song [facility] 2022-03-28 2022-03-28 Anesthesia Lenka Chau 1.2.840.1 [id number] Univers 23:59:59 23:59:59 Event Y 74918.1.1 ity of 3.412.2.7 [place] .3.954326 MD Song [facility] 2022-03-28 2022-03-28 POEM Shed, 1.2.840.1 [id number] Univers 15:00:00 15:30:00 Appointmen Ricardo Chilel 64764.1.1 ity of ts 3.412.2.7 [place] .3.922854 MD Ricketts8 [facility] 2022-03-28 2022-03-28 Clinical Shed, Ricardo Ranjana 1.2.840.1 [id number] [id number] [facility] 11:30:00 11:30:00 Support Samuel Burger 79626.1.1 ity of 3.412.2.7 [place] .3.530170 MD Ricketts8 [facility] 2022-03-28 2022-03-28 Outpatient EL SHED, MDA MDA [id number] MD 10:57:41 11:05:41 RICARDO sol 2022-03-28 2022-03-28 Outpatient EL SHED, MDA MDA [id number] MD 10:42:44 10:45:44 RICARDO sol 2022-03-28 2022-03-28 Outpatient EL SHED, MDA MDA [id number] MD 07:25:12 07:25:12 RICARDO sol 2022-03-28 2022-03-28 Orders Shed, 1.2.840.1 [id number] Univers 00:00:00 00:00:00 Only Ricardo Chilel 54401.1.1 ity of 3.412.2.7 [place] .3.114372 MD Ricketts8 [facility] 2022-03-28 2022-03-28 Travel 1.2.840.1 1.2.513.188 6042 [id number] Univers 00:00:00 00:00:00 52623.1.1 350.1.13.41 ity of 3.412.2.7 2.[place].7.3.698 [place] .3.121572 084.8 MD Ricketts8 [facility] 2022-03-27 2022-03-27 Telemedici Adibi, 1.2.840.1 [id number] Univers 13:00:00 13:29:05 ne Lanny 34270.1.1 ity of 3.412.2.7 [place] .3.286031 MD Song [facility] 2022-03-27 2022-03-27 Outpatient JAMES CARRILLODENNY MDA [id number] 12:14:32 13:29:05 LANNY sol 2022-03-27 2022-03-27 Telephone Malik, 1.2.840.1 [id number] 10 [id number] Univers 00:00:00 00:00:00 Marii Shaikh 79137.1.1 ity of 3.412.2.7 [place] .3.028345 MD Ricketts8 [facility] 2022-03-27 2022-03-27 Orders Malik, 1.2.840.1 [id number] 1094 [id number] Univers 00:00:00 00:00:00 Only Marii Shaikh 14460.1.1 ity of 3.412.2.7 [place] .3.241438 MD Ricketts8 [facility] 2022-03-21 2022-03-21 Telephone Wilian, 1.2.840.1 [id number] 1093 [id number] Univers 00:00:00 00:00:00 Rosalia 27103.1.1 it y of 3.412.2.7 [place] .3.502939 MD Ricketts8 [facility] 2022-03-21 2022-03-21 Orders Shed, 1.2.840.1 [id number] Univers 00:00:00 00:00:00 Only Ricardo Chilel 92887.1.1 ity of 3.412.2.7 [place] .3.261110 MD Ricketts8 [facility] 2022-03-20 2022-03-20 Telephone Blackwood, 1.2.840.1 [id number] 1093 [id number] Univers 00:00:00 00:00:00 Bria Hubbard 76054.1.1 ity of 3.412.2.7 [place] .3.170075 MD Ricketts8 [facility] 2022-03-20 2022-03-20 Orders Ramy, 1.2.840.1 [id number] Univers 00:00:00 00:00:00 Only Ricardo Chilel 59030.1.1 ity of 3.412.2.7 [place] .3.543842 MD Song [facility] 2022-03-18 2022-03-18 Ulysses Mara Harman 1.2.840.1 [id number] Univers 15:00:00 15:00:00 Rp 68021.1.1 ity of 3.412.2.7 [place] .3.775951 MD Song [facility] 2022-03-18 2022-03-18 Travel 1.2.840.1 1.2.788.076 7785 [id number] Univers 00:00:00 00:00:00 31619.1.1 350.1.13.41 ity of 3.412.2.7 2.[place].7.3.698 [place] .3.104260 084.8 MD Song [facility] 2022-03-17 2022-03-17 Jordan Blackwood, 1.2.840.1 [id number] Univers 00:00:00 00:00:00 Only Bria Hubbard 99075.1.1 ity of 3.412.2.7 [place] .3.340963 MD Song [facility] 2022-03-04 2022-03-04 Hospital Jay, 1.2.840.1 [id number] Univers 07:30:00 23:59:00 Encounter Kaitlin V. 55313.1.1 i ty of 3.412.2.7 [place] .3.220548 MD Song [facility] 2022-03-04 2022-03-04 Infusion Jay, 1.2.840.1 [id number] 790 [id number] Univers 14:30:00 15:30:00 Kaitlin V. 31366.1.1 ity of 3.412.2.7 [place] .3.361452 MD Song [facility] 2022-03-04 2022-03-04 [facility], 1.2.840.1 [id number] 1092 [id number] Univers 08:30:00 10:28:05 Visit Kaitlin TannerLiliam 06550.1.1 ity of 3.412.2.7 [place] .3.092842 MD Song [facility] 2022-03-04 2022-03-04 Jordan Thompson, 1.2.840.1 [id number] 1093 [id number] Univers 00:00:00 00:00:00 Only Kaitlin Cisse 41926.1.1 ity of 3.412.2.7 [place] .3.851978 MD Song [facility] 2022-03-04 2022-03-04 Jordan Mosher 1.2.840.1 [id number] Univers 00:00:00 00:00:00 Only Nicolette 13616.1.1 it y of 3.412.2.7 [place] .3.906593 MD Song [facility] 2022-03-04 2022-03-04 Jordan Maxwell 1.2.840.1 [id number] 3982 Univers 00:00:00 00:00:00 Only Vijaya 73472.1.1 ity of 3.412.2.7 [place] .3.759844 MD Song [facility] 2022-03-04 2022-03-04 Travel 1.2.840.1 1.2.193.702 1261 [id number] Univers 00:00:00 00:00:00 41157.1.1 350.1.13.41 ity of 3.412.2.7 2.2.7.3.698 [place] .3.773665 084.8 MD Song [facility] 2022-03-03 2022-03-03 Jordan Mosher 1.2.840.1 [id number] Univers 00:00:00 00:00:00 Only Nicolette 54916.1.1 it y of 3.412.2.7 [place] .3.908503 MD Song [facility] 2022-02-27 2022-02-27 Telephone Shed, 1.2.840.1 [id number] 1093 [id number] Univers 00:00:00 00:00:00 Ricardo Chilel 83961.1.1 ity of 3.412.2.7 [place] .3.860931 MD Song [facility] 2022-02-26 2022-02-26 Telephone Jerod, 1.2.840.1 [id number] 1093 [id number] Univers 00:00:00 00:00:00 Gabriel August 92219.1.1 it y of 3.412.2.7 [place] .3.924604 MD Song [facility] 2022-02-25 2022-02-25 Telephone Sera Honeycutt 1.2.840.1 [id number] Univers 00:00:00 00:00:00 63844.1.1 ity of 3.412.2.7 [place] .3.261557 MD Song [facility] 2022-02-24 2022-02-24 Clinical Shed, Ricardo Chilel 1.2.840.1 [id number] 4 [id number] Univers 09:30:00 10:36:47 Support Rosalia Cedeno 76370.1.1 ity of 3.412.2.7 [place] .3.224397 MD Song [facility] 2022-02-24 2022-02-24 Travel 1.2.840.1 1.2.801.005 2310 [id number] Univers 00:00:00 00:00:00 23147.1.1 350.1.13.41 ity of 3.412.2.7 2.2.7.3.698 [place] .3.344041 084.8 MD Song [facility] 2022-02-22 2022-02-22 Nurse Padilla, 1.2.840.1 [id number] 28451 44623 Univers 00:00:00 00:00:00 Triage Loren 88948.1.1 ity of Gatvelasquez 3.412.2.7 Jared as .3.321899 MD Song [facility] 2022-02-21 2022-02-21 Telephone Shed, 1.2.840.1 [id number] 1092 [id number] Univers 00:00:00 00:00:00 Ricardo Chilel 20661.1.1 ity of 3.412.2.7 [place] .3.240628 MD Song [facility] 2022-02-19 2022-02-20 Hospital Adibi, 1.2.840.1 [id number] 94729 [id number] Univers 08:02:00 10:45:00 Encounter Lanny 43868.1.1 it y of 3.412.2.7 [place] .3.482532 MD Song [facility] 2022-02-19 2022-02-19 Anesthesia Chi Doyle. 1.2.840.1 [id number] 5 [id number] Univers 11:05:00 13:15:00 Event Stacie Grimm 66194.1.1 ity of 3.412.2.7 [place] .3.274564 MD Song [facility] 2022-02-19 2022-02-19 Surgery Adibi, 1.2.840.1 [id number] 0340 Univers 10:25:00 11:30:00 Mehrad 78229.1.1 ity of 3.412.2.7 [place] .3.701650 MD Song [facility] 2022-02-19 2022-02-19 Orders Shed, 1.2.840.1 [id number] Univers 00:00:00 00:00:00 Only Ricardo Chilel 09001.1.1 ity of 3.412.2.7 [place] .3.599627 MD Song [facility] 2022-02-19 2022-02-19 Travel 1.2.840.1 1.2.920.309 1786 [id number] Univers 00:00:00 00:00:00 96872.1.1 350.1.13.41 ity of 3.412.2.7 2.2.7.3.698 [place] .3.064060 084.8 MD Song [facility] 2022-02-18 2022-02-18 Anesthesia Yoburn, 1.2.840.1 [id number] 497 [id number] Univers 23:59:59 23:59:59 Event Jonah Murray 63743.1.1 ity of 3.412.2.7 [place] .3.099231 MD Song [facility] 2022-02-18 2022-02-18 STEPHAN Mensah 1.2.840.1 [id number] 10 [id number] Univers 09:00:00 09:30:00 Court Andres 71898.1.1 i ty of ts 3.412.2.7 [place] .3.530436 MD Song [facility] 2022-02-18 2022-02-18 Ancillary Ramy, 1.2.840.1 [id number] 1092 [id number] Univers 07:00:00 09:00:00 Procedure Ricardo Chilel 83110.1.1 i ty of 3.412.2.7 [place] .3.875714 MD Song [facility] 2022-02-18 2022-02-18 Orders Cr 1.2.840.1 [id number] 4026 Univers 00:00:00 00:00:00 Only Joel A 02901.1.1 ity of 3.412.2.7 [place] .3.256882 MD Song [facility] 2022-02-18 2022-02-18 Travel 1.2.840.1 1.2.527.566 1037 [id number] Univers 00:00:00 00:00:00 90253.1.1 350.1.13.41 ity of 3.412.2.7 2.2.7.3.698 [place] .3.850984 084.8 MD Song [facility] 2022-02-17 2022-02-17 Clinical Ricardo Mccann 1.2.840.1 [id number] 2 [id number] Univers 10:15:00 11:19:12 Support Samuel Burger 56294.1.1 ity of 3.412.2.7 [place] .3.600029 MD Song [facility] 2022-02-17 2022-02-17 Consult Carrillo, 1.2.840.1 [id number] 0030 Univers 09:00:00 10:38:38 Lanny 30781.1.1 ity of 3.412.2.7 [place] .3.332564 MD Song [facility] 2022-02-17 2022-02-17 Travel 1.2.840.1 1.2.757.519 6026 [id number] Univers 00:00:00 00:00:00 42587.1.1 350.1.13.41 ity of 3.412.2.7 2.2.7.3.698 [place] .3.897285 084.8 MD Ricketts8 [facility] 2022-02-11 2022-02-11 Orders Vidhi, 1.2.840.1 [id number] 7521 Univers 00:00:00 00:00:00 Only Nicolette 64561.1.1 it y of 3.412.2.7 [place] .3.787079 MD Song [facility] 2022-02-04 2022-02-04 [facility] 1.2.840.1 [id number] Univers 07:55:41 23:59:00 Encounter Kaitlin Cisse 48054.1.1 i ty of 3.412.2.7 [place] .3.407657 MD Song [facility] 2022-02-04 2022-02-04 Ancillary Papadopoulo 1.2.840.1 [id number] Univers 20:15:00 20:20:[address] lopez 71465.1.1 it y of 3.412.2.7 [place] .3.934243 MD Song [facility] 2022-02-04 2022-02-04 Ancillary Papadopoulo 1.2.840.1 [id number] Univers 20:10:00 20:15:[address] 07271.1.1 it y of 3.412.2.7 [place] .3.884244 MD Song [facility] 2022-02-04 2022-02-04 Ancillary Papadopoulo 1.2.840.1 [id number] Univers 20:05:00 20:10:[address] lopez 60040.1.1 it y of 3.412.2.7 [place] .3.463734 MD Ricketts8 [facility] 2022-02-04 2022-02-04 Ancillary Papadopoulo 1.2.840.1 [id number] Univers 20:00:00 20:05:00 Court Aragon 19047.1.1 it y of 3.412.2.7 [place] .3.388018 MD Ricketts8 [facility] 2022-02-04 2022-02-04 Infusion Jay 1.2.840.1 [id number] 775 [id number] Univers 14:45:00 16:36:36 Kaitlin Cisse 86344.1.1 ity of 3.412.2.7 [place] .3.804310 MD Song [facility] 2022-02-04 2022-02-04 Office Jay, 1.2.840.1 [id number] 1091 [id number] Univers 09:30:00 09:43:45 Visit Kaitlin Cisse 12290.1.1 ity of 3.412.2.7 [place] .3.898937 MD Song [facility] 2022-02-04 2022-02-04 Jordan Mosher 1.2.840.1 [id number] Univers 00:00:00 00:00:00 Only Nicolette 82570.1.1 it y of 3.412.2.7 [place] .3.772819 MD Song [facility] 2022-02-04 2022-02-04 Travel 1.2.840.1 1.2.239.634 0030 [id number] Univers 00:00:00 00:00:00 19682.1.1 350.1.13.41 ity of 3.412.2.7 2.2.7.3.698 [place] .3.225157 084.8 MD Song [facility] 2022-01-07 2022-01-07 Infusion Jay, 1.2.840.1 [id number] 901 [id number] [facility] 10:45:00 14:46:28 Kaitlin Cisse 30910.1.1 ity of 3.412.2.7 [place] .3.998977 MD Ricketts8 [facility] 2022-01-07 2022-01-07 Outpatient JAMES THOMPSON [facility] [id number] [place] 10:30:10 14:46:28 KAITLIN sol 2022-01-07 2022-01-07 [facility] 1.2.840.1 1.2.655.351 2525 [id number] [facility] 00:00:00 00:00:00 16156.1.1 350.1.13.41 ity of 3.412.2.7 2.2.7.3.698 [place] .3.762172 084.8 MD Ricketts8 [facility] 2022-01-01 2022-01-01 Outpatient JAMES MOSHER [facility] [id number] 09:30:00 23:59:00 NICOLETTE sol 2022-01-01 2022-01-01 [facility] Vidhi, 1.2.840.1 [id number] 88495 [id number] [facility] 09:30:00 23:59:00 Encounter Nicolette 34669.1.1 ity of 3.412.2.7 [place] .3.860694 MD Ricketts8 [facility] 2022-01-01 2022-01-01 [facility] Jay 1.2.840.1 [id number] 1090 [id number] [facility] 10:30:00 11:59:16 Visit Kaitlin Cisse 62910.1.1 ity of 3.412.2.7 [place] .3.819028 MD Ricketts8 [facility] 2022-01-01 2022-01-01 Outpatient JAMES THOMPSON [facility] [id number] [place] 10:05:59 11:59:16 KAITLIN sol 2022-01-01 2022-01-01 [facility] Vidhi 1.2.840.1 [id number] Univers 00:00:00 00:00:00 Only Nicolette 89880.1.1 it y of 3.412.2.7 [place] .3.783176 MD Ricketts8 [facility] 2022-01-01 2022-01-01 Jordan Maxwell, 1.2.840.1 [id number] 6945 Univers 00:00:00 00:00:00 Only Vijaya 48972.1.1 ity of 3.412.2.7 [place] .3.529158 MD Ricketts8 [facility] 2022-01-01 2022-01-01 Travel 1.2.840.1 1.2.525.652 9543 [id number] Univers 00:00:00 00:00:00 10722.1.1 350.1.13.41 ity of 3.412.2.7 2.2.7.3.698 [place] .3.906440 084.8 MD Ricketts8 [facility] 2021-12-30 2021-12-30 Nurse Smith, 1.2.840.1 [id number] 9408 Univers 00:00:00 00:00:00 Triage Sally Pillai 29568.1.1 ity of 3.412.2.7 [place] .3.405670 MD Ricketts8 [facility] 2021-12-30 2021-12-30 Tatyana Smith, 1.2.840.1 [id number] 1090 [id number] Univers 00:00:00 00:00:00 Sally Pillai 16700.1.1 ity of 3.412.2.7 [place] .3.916210 MD Ricketts8 [facility] 2021-12-24 2021-12-24 Jordan Mosher, 1.2.840.1 [id number] 0402 Univers 00:00:00 00:00:00 Only Nicolette 89033.1.1 it y of 3.412.2.7 [place] .3.582211 MD Song [facility] 2021-12-23 2021-12-23 Outpatient JAMES MOSHER [facility] [id number] 436 13:12:34 23:59:00 NICOLETTE Coy [facility] 2021-12-23 2021-12-23 [facility], 1.2.840.1 [id number] [facility] 13:12:34 23:59:00 Encounter Nicolette 62809.1.1 ity of 3.412.2.7 [place] .3.074854 .8 [facility] 2021-12-23 2021-12-23 Office Almanza, 1.2.840.1 [id number] [id number] [facility] 13:30:00 15:11:31 Visit Jeffry 61628.1.1 ity of 3.412.2.7 [place] .3.116104 .8 [facility] 2021-12-23 2021-12-23 Outpatient JAMES ALMANZA [facility] [id number] 13:11:54 15:11:31 JEFFRY sol 2021-12-23 2021-12-23 Outpatient JAMES ARREOLA [facility] [id number] 12:54:02 13:11:00 LAUREN sol 2021-12-23 2021-12-23 [facility], 1.2.840.1 [id number] 10 [id number] [facility] 12:54:02 13:11:00 Encounter Lauren 06199.1.1 it y of 3.412.2.7 [place] .3.692944 MD Ricketts8 [facility] 2021-12-23 2021-12-23 [facility], 1.2.840.1 [id number] 1 [id number] [facility] 12:30:00 12:45:00 Procedure Lauren 55955.1.1 it y of 3.412.2.7 [place] .3.132177 MD Ricketts8 [facility] 2021-12-23 2021-12-23 Outpatient JAMES ARREOLA [facility] [id number] 12:06:15 12:06:15 LAUREN sol 2021-12-23 2021-12-23 Travel 1.2.840.1 1.2.636.555 7838 [id number] [facility] 00:00:00 00:00:00 74009.1.1 350.1.13.41 ity of 3.412.2.7 2.2.7.3.698 [place] .3.859423 084.8 MD Song [facility] 2021-12-11 2021-12-11 Telephone Vidhi, 1.2.840.1 [id number] 1090 [id number] Univers 00:00:00 00:00:00 Nicolette 06246.1.1 it y of 3.412.2.7 [place] .3.030686 MD Ricketts8 [facility] 2021-12-11 2021-12-11 Orders Pricilla, 1.2.840.1 [id number] [id number] Univers 00:00:00 00:00:00 Only Lauren 79110.1.1 ity of 3.412.2.7 [place] .3.321771 MD Song [facility] 2021-12-10 2021-12-10 Viri Thompson 1.2.840.1 [id number] 1089 [id number] Univers 08:00:00 09:20:33 Visit Kaitlin Cisse 73528.1.1 ity of 3.412.2.7 [place] .3.152787 MD Song [facility] 2021-12-10 2021-12-10 Outpatient JAMES THOMPSON [facility] [id number] 07:32:55 09:20:33 [facility] 2021-12-10 2021-12-10 Rosita Braswell 1.2.840.1 [id number] 10 [id number] Univers 00:00:00 00:00:00 Only 57363.1.1 ity of 3.412.2.7 [place] .3.368157 MD Song [facility] 2021-12-10 2021-12-10 Travel 1.2.840.1 1.2.885.482 4225 [id number] Univers 00:00:00 00:00:00 47339.1.1 350.1.13.41 ity of 3.412.2.7 2.2.7.3.698 [place] .3.651650 084.8 MD Song [facility] 2021-12-09 2021-12-09 Ancillary Veewild, 1.2.840.1 [id number] 10 [id number] Univers 10:00:00 12:30:00 Procedure Kaitlin Cisse 31548.1.1 i ty of 3.412.2.7 [place] .3.488247 .8 [facility] 2021-12-09 2021-12-09 Outpatient JAMES THOMPSON [facility] [id number] 09:04:47 09:04:47 KAITLIN sol 2021-12-09 2021-12-09 Outpatient JAY [facility] [id number] 08:51:26 08:51:51 KAITLIN sol 2021-12-09 2021-12-09 Travel 1.2.840.1 1.2.200.777 1708 [id number] Univers 00:00:00 00:00:00 65689.1.1 350.1.13.41 ity of 3.412.2.7 2.2[place]7.3.698 [place] .3.759179 084.8 .8 [facility] 2021-11-19 2021-11-19 Orders Thomas, 1.2.840.1 [id number] Univers 00:00:00 00:00:00 Only Liudmila Oakes 93214.1.1 ity of 3.412.2.7 [place] .3.833944 .8 [facility] 2021-11-14 2021-11-14 Rachel Mosher, 1.2.840.1 [id number] [facility] 13:15:00 16:51:50 Nicolette 04470.1.1 it y of 3.412.2.7 [place] .3.335907 MD Ricketts8 [facility] 2021-11-14 2021-11-14 Outpatient JAMES MOSHER [facility] [id number] 12:51:39 16:51:50 NICOLETTE sol 2021-11-14 2021-11-14 Travel 1.2.840.1 1.2.811.824 1041 [id number] Univers 00:00:00 00:00:00 32855.1.1 350.1.13.41 ity of 3.412.2.7 2.2.7.3.698 [place] .3.094189 084.8 MD Ricketts8 [facility] 2021-11-14 2021-11-14 Jordan Levin 1.2.840.1 [id number] Univers 00:00:00 00:00:00 Only Shayy 82721.1.1 ity of 3.412.2.7 [place] .3.695616 MD Ricketts8 [facility] 2021-11-14 2021-11-14 Jordan Mosher 1.2.840.1 [id number] Univers 00:00:00 00:00:00 Only Nicolette 37798.1.1 it y of 3.412.2.7 [place] .3.447081 MD Ricketts8 [facility] 2021-11-13 2021-11-13 Telemedicsabrina Thompson 1.2.840.1 [id number] 1 [id number] Univers 15:30:00 16:00:00 alfa Cisse 14848.1.1 ity of 3.412.2.7 [place] .3.293722 MD Ricketts8 [facility] 2021-11-13 2021-11-13 Outpatient JAMES MOSHER [facility] [id number] 08:45:46 08:47:28 NICOLETTE tolbert 2021-11-13 2021-11-13 Outpatient JAMES THOMPSON [facility] [id number] 08:34:28 08:34:28 KAITLIN silver n 2021-11-13 2021-11-13 Jordan Maxwell 1.2.840.1 [id number] Univers 00:00:00 00:00:00 Only Vijaya 12830.1.1 ity of 3.412.2.7 [place] .3.542653 MD Ricketts8 [facility] 2021-11-13 2021-11-13 Jordan Mosher 1.2.840.1 [id number] Univers 00:00:00 00:00:00 Only Nicolette 69074.1.1 it y of 3.412.2.7 [place] .3.980435 MD Song [facility] 2021-11-13 2021-11-13 Travel 1.2.840.1 1.2.680.219 [id number] [facility] 00:00:00 00:00:00 15386.1.1 350.1.13.41 ity of 3.412.2.7 [place].3.698 [place] .3.[place] 084.8 MD Song [facility] 2021-10-17 2021-10-17 Infusion Valeria Thompson2.840.1 [id number] [facility] 10:45:00 11:45:00 Kaitlin Cisse 27161.1.1 ity of 3.412.2.7 [place] .3.329272 MD Song [facility] 2021-10-17 2021-10-17 Telemedici Kaitlin Thompson V. 1.2.840.1 [id number] [facility] 10:00:00 10:30:00 alfa HillmanTeeteeNicolette 30087.1.1 ity of 3.412.2.7 [place] .3.705547 MD Song [facility] 2021-10-17 2021-10-17 Outpatient JAMES THOMPSON [facility] [id number] 10:07:53 10:07:53 KAITLIN sol 2021-10-17 2021-10-17 Outpatient JAMES THOMPSON [facility] [id number] 08:29:28 08:29:28 KAITLIN sol 2021-10-17 2021-10-17 Travel 1.2.840.1 1.2.587.049 [id number] [facility] 00:00:00 00:00:00 64206.1.1 350.1.13.41 ity of 3.412.2.7 2.[place].3.698 [place] .3.5485[place] 084.8 MD Song [facility] 2021-10-17 2021-10-17 [facility], 1.2.840.1 [id number] Univers 00:00:00 00:00:00 Only Nicolette 39772.1.1 it y of 3.412.2.7 [place] .3.634497 MD Ricketts8 [facility] 2021-10-16 2021-10-16 [facility], 1.2.840.1 [id number] Univers 00:00:00 00:00:00 Only Kaitlin Cisse 08804.1.1 ity of 3.412.2.7 [place] .3.440078 MD Ricketts8 [facility] 2021-10-15 2021-10-15 [facility], 1.2.840.1 [id number] [facility] 10:25:49 23:59:00 Encounter Kaitlin Cisse 20068.1.1 i ty of 3.412.2.7 [place] .3.821077 MD Ricketts8 [facility] 2021-10-15 2021-10-15 Outpatient [facility] [id number] [place] 10:25:49 23:59:00 KAILTIN [facility] 2021-10-15 2021-10-15 [facility], 1.2.840.1 [id number] [facility] 08:51:49 10:24:00 Encounter Nicolette 31395.1.1 ity of 3.412.2.7 [place] .3.545572 .8 [facility] 2021-10-15 2021-10-15 Outpatient [facility] [id number] [place] 08:51:49 10:24:00 NICOLETTE [facility] 2021-10-15 2021-10-15 Travel 1.2.840.1 1.2.430.142 [id number] [facility] 00:00:00 00:00:00 50167.1.1 350.1.13.41 ity of 3.412.2.7 2.[place]7.3.698 [place] .3.15[place]10 084.8 .8 [facility] 2021-09-30 2021-09-30 Office Emil, 1.2.840.1 [id number] Univers 08:00:00 11:39:56 Visit Claudia 55051.1.1 ity of 3.412.2.7 [place] .3.912848 MD Song [facility] 2021-09-30 2021-09-30 Outpatient JAMES ROGERS [facility] [id number] 07:48:39 11:39:56 [facility] 2021-09-30 2021-09-30 Travel 1.2.840.1 1.2.734.482 [id number] Univers 00:00:00 00:00:00 89534.1.1 350.1.13.41 ity of 3.412.2.7 [place].3.698 [place] .3.215664 084.8 MD Ricketts8 [facility] 2021-09-24 2021-09-24 Telephone Obie-Shai 1.2.840.1 [id number] Univers 00:00:00 00:00:00 emiliano 37519.1.1 ity of Radha 3.412.2.7 [place] .3.243769 MD Song [facility] 2021-09-23 2021-09-23 Jordan Mosher, 1.2.840.1 [id number] Univers 00:00:00 00:00:00 Only Nicolette 81429.1.1 it y of 3.412.2.7 [place] .3.218660 MD Song [facility] 2021-09-19 2021-09-19 Infusion Jay, 1.2.840.1 [id number] Univers 09:00:00 10:48:39 Kaitlin Cisse 24682.1.1 ity of 3.412.2.7 [place] .3.416347 MD Song [facility] 2021-09-19 2021-09-19 Outpatient JAMES THOMPSON MDA MDA [id number] 08:51:28 10:48:39 KAITLIN sol 2021-09-19 2021-09-19 Travel 1.2.840.1 1.2.457.367 [id number] [facility] 00:00:00 00:00:00 98632.1.1 350.1.13.41 ity of 3.412.2.7 [place].7.3.698 [place] .3.007207 084.8 MD Song [facility] 2021-09-18 2021-09-18 [facility], 1.2.840.1 [id number] [facility] 10:06:02 23:59:00 Encounter Kaitlin Cisse 71735.1.1 i ty of 3.412.2.7 [place] .3Liliam870775 MD Song [facility] 2021-09-18 2021-09-18 Outpatient [facility] [id number] 10:06:02 23:59:00 KAITLIN sol 2021-09-18 2021-09-18 [facility] 1.2.840.1 [id number] [facility] 11:30:00 13:09:33 Visit Kaitlin Cisse 68550.1.1 ity of 3.412.2.7 [place] .3Liliam607044 MD Song [facility] 2021-09-18 2021-09-18 Outpatient [facility] [id number] 11:27:51 13:09:33 KAITLIN sol 2021-09-18 2021-09-18 Travel 1.2.840.1 1.2.040.690 [id number] [facility] 00:00:00 00:00:00 47945.1.1 350.1.13.41 ity of 3.412.2.7 2.[place].7.3.698 [place] .3.081799 084.8 MD Song [facility] 2021-09-01 2021-09-01 Jordan Rogers 1.2.840.1 [id number] [facility] 00:00:00 00:00:00 Only Taylor 86103.1.1 ity of 3.412.2.7 [place] .3Liliam302021 MD Ricketts8 [facility] 2021-08-26 2021-08-26 Telephone Elvie Borja 1.2.840.1 [id number] Univers 00:00:00 00:00:00 M 01435.1.1 ity of 3.412.2.7 [place] .3.983908 .8 [facility] 2021-08-22 2021-08-22 [facility] 1.2.840.1 [id number] Univers 14:15:00 16:06:38 34437.1.1 ity of 3.412.2.7 [place] .3.523561 .8 [facility] 2021-08-22 2021-08-22 Outpatient [facility] [id number] 13:52:54 16:06:38 [facility] 2021-08-22 2021-08-22 Travel 1.2.840.1 1.2.215.741 [id number] Univers 00:00:00 00:00:00 47600.1.1 350.1.13.41 ity of 3.412.2.7 2.[place].7.3.698 [place] .3.039261 084.8 .8 [facility] 2021-08-21 2021-08-21 Office Jay 1.2.840.1 [id number] [facility] 11:30:00 12:12:50 Visit Kaitlin Cisse 81989.1.1 ity of 3.412.2.7 [place] .3.042121 .8 [facility] 2021-08-21 2021-08-21 Outpatient EL DENNY THOMPSON [facility] [id number] 10:48:45 12:12:50 KAITLIN [facility] ebenezer 2021-08-21 2021-08-[address] [place] 1.2.840.1 [id number] Univers 10:15:00 10:39:56 Visit Nahed Bertrand 48535.1.1 ity of 3.412.2.7 [place] .3.103491 MD Ricketts8 [facility] 2021-08-21 2021-08-21 Outpatient EL PAPADOPOULO MDA MDA [id number] 09:42:21 10:39:56 COURT Lopez 2021-08-21 2021-08-21 Orders Dillard, 1.2.840.1 [id number] Univers 00:00:00 00:00:00 Only Alejandro 36389.1.1 ity of 3.412.2.7 [place] .3.914491 MD Ricketts8 [facility] 2021-08-21 2021-08-21 Orders Vidhi, 1.2.840.1 [id number] Univers 00:00:00 00:00:00 Only Nicolette 75692.1.1 it y of 3.412.2.7 [place] .3.573142 MD Ricketts8 [facility] 2021-08-21 2021-08-21 Orders [place], 1.2.840.1 [id number] Univers 00:00:00 00:00:00 Only Annalise 73976.1.1 ity of [place].2.7 [place] .3.430915 MD Ricketts8 [facility] 2021-08-21 2021-08-21 Travel 1.2.840.1 1.2.145.358 [id number] Univers 00:00:00 00:00:00 26712.1.1 350.1.13.41 ity of 3.412.2.7 2.2.7.3.698 [place] .3.294589 084.8 MD Song [facility] 2021-08-20 2021-08-20 Ancillary 1.2.840.1 [id number] Univers 08:55:00 10:20:00 Procedure 03279.1.1 it y of 3.412.2.7 [place] .3.100223 MD Song [facility] 2021-08-20 2021-08-20 Outpatient EL MDA MDA [id number] 09:26:07 09:26:07 Mustapha sol 2021-08-20 2021-08-20 Outpatient [facility] [id number] MD 08:32:02 09:18:35 [facility] 2021-08-20 2021-08-20 Travel 1.2.840.1 1.2.832.516 [id number] Univers 00:00:00 00:00:00 11249.1.1 350.1.13.41 ity of 3.412.2.7 2.[place].7.3.698 [place] .3.221688 084.8 MD Song [facility] 2021-07-25 2021-07-25 Infusion 1.2.840.1 [id number] [facility] 11:15:00 15:10:56 10119.1.1 ity of 3.412.2.7 [place] .3.532198 MD Song [facility] 2021-07-25 2021-07-25 Outpatient [facility] [id number] 11:06:38 15:10:56 [facility] 2021-07-25 2021-07-25 Telephone Heffron, 1.2.840.1 [id number] [facility] 00:00:00 00:00:00 Yun 74627.1.1 ity of 3.412.2.7 [place] .3.724267 MD Song [facility] 2021-07-25 2021-07-25 Travel 1.2.840.1 1.2.159.710 [id number] Univers 00:00:00 00:00:00 38331.1.1 350.1.13.41 ity of 3.412.2.7 2.2.7.3.698 [place] .3.234351 084.8 MD Song [facility] 2021-07-24 2021-07-24 Hospital 1.2.840.1 [id number] [facility] 14:03:29 23:59:00 Encounter 34003.1.1 it y of 3.412.2.7 [place] .3.043773 MD Song [facility] 2021-07-24 2021-07-24 Outpatient [facility] [id number] 14:03:29 23:59:00 Mustapha sol 2021-07-24 2021-07-24 Office Jay, 1.2.840.1 [id number] Univers 15:30:00 15:30:00 Visit Kaitlin Cisse 83345.1.1 ity of 3.412.2.7 [place] .3.460108 .8 [facility] 2021-07-24 2021-07-24 Outpatient EL [facility] [id number] 15:12:11 15:29:00 KAITLIN sol 2021-07-24 2021-07-24 Orders Maxwell, 1.2.840.1 [id number] Univers 00:00:00 00:00:00 Only Bharaticlementina 50216.1.1 ity of 3.412.2.7 [place] .3.969401 .8 [facility] 2021-07-24 2021-07-24 Travel 1.2.840.1 1.2.005.523 [id number] Univers 00:00:00 00:00:00 88028.1.1 350.1.13.41 ity of 3.412.2.7 2.2.7.3.698 [place] .3.670094 084.8 .8 [facility] 2021-06-26 2021-06-26 Infusion Jay, 1.2.840.1 [id number] Univers 14:15:00 15:15:00 Kaitlin Cisse 65904.1.1 ity of 3.412.2.7 [place] .3.389547 MD Ricketts8 [facility] 2021-06-26 2021-06-26 Outpatient [facility] [id number] 14:29:17 14:29:17 KAITLIN sol 2021-06-26 2021-06-26 Office Jay, 1.2.840.1 [id number] Univers 11:30:00 14:02:23 Visit Kaitlin Cisse 27407.1.1 ity of 3.412.2.7 [place] .3.189260 MD Song [facility] 2021-06-26 2021-06-26 Outpatient JAMES THOMPSON [facility] [id number] 11:17:51 14:02:23 KAITLIN sol 2021-06-26 2021-06-26 Travel 1.2.840.1 1.2.438.730 [id number] [facility] 00:00:00 00:00:00 10465.1.1 350.1.13.41 ity of 3.412.2.7 2.2.7.3.698 [place] .3.455228 084.8 MD Ricketts8 [facility] 2021-06-26 2021-06-26 [facility] Jay 1.2.840.1 [id number] Univers 00:00:00 00:00:00 Only Kaitlin Cisse 05866.1.1 ity of 3.412.2.7 [place] .3.956990 MD Song [facility] 2021-06-25 2021-06-25 Rosalva Mosher 1.2.840.1 [id number] [facility] 09:45:00 12:10:00 Procedure Nicolette 05817.1.1 ity of 3.412.2.7 [place] .3.111480 MD Song [facility] 2021-06-25 2021-06-25 Outpatient [facility] [id number] 08:41:02 08:41:02 NICOLETTE sol 2021-06-25 2021-06-25 Outpatient JAMES THOMPSON [facility] [id number] 08:26:55 08:30:34 KAITLIN sol 2021-06-25 2021-06-25 Travel 1.2.840.1 1.2.344.612 [id number] [facility] 00:00:00 00:00:00 20585.1.1 350.1.13.41 ity of 3.412.2.7 2.2.7.3.698 [place] .3.964374 084.8 MD Song [facility] 2021-05-29 2021-05-29 Infusion [place], 1.2.840.1 [id number] [facility] 11:15:00 14:24:28 Kaitlin Cisse 63986.1.1 ity of 3.412.2.7 [place] .3.356167 MD Ricketts8 [facility] 2021-05-29 2021-05-29 Outpatient EL VEEELLA, MDA MDA [id number] [place] 11:03:03 14:24:28 KAITLIN sol 2021-05-29 2021-05-29 [facility] 1.2.840.1 1.2.909.963 [id number] [facility] 00:00:00 00:00:00 89202.1.1 350.1.13.41 ity of 3.412.2.7 2.2.7.3.698 [place] .3.539766 084.8 MD Ricketts8 [facility] 2021-05-21 2021-05-21 Outpatient [facility], MDA MDA [id number] 10:13:50 23:59:00 KAITLIN sol 2021-05-21 2021-05-21 Outpatient VIDHI, MDA MDA [id number] 10:44:24 13:03:33 NICOLETTE sol 2021-05-01 2021-05-01 Outpatient VEEELLA, MDA MDA [id number] 11:37:12 17:16:50 KAITLIN sol 2021-04-24 2021-04-24 Outpatient EL FOSSELLA, MDA MDA [id number] 10:40:41 11:51:15 KAITLIN sol 2021-04-23 2021-04-23 Outpatient EL VIDHI, MDA MDA [id number] 09:42:56 09:42:56 NICOLETTE sol 2021-04-23 2021-04-23 Outpatient EL FOSSELLA, MDA MDA [id number] 09:03:53 09:36:33 KAITLIN sol 2021-04-03 2021-04-03 Outpatient EL FOSSELLA, MDA MDA [id number] 13:49:14 15:39:37 KAITLIN sol 2021-03-27 2021-03-27 Outpatient JAMES THOMPSON, MDA MDA [id number] 13:54:43 23:59:00 KAITLIN sol 2021-03-27 2021-03-27 Outpatient JAMES THOMPSON, MDA MDA [id number] 14:44:39 16:13:07 KAITLIN sol 2021-03-20 2021-03-20 Outpatient JAMES ROGERS, [facility] MDA [id number] 07:57:51 11:28:17 CLAUDIA sol 2020-12-26 2020-12-26 Outpatient EL NICOLETTE, [facility] MDA [id number] 08:22:14 09:11:04 CARLOS sol 2019-10-31 2019-10-31 Outpatient JAMES JOHNSON, MDA MDA [id number] 10:46:16 23:59:00 LIEN sol Results Test Description Test Time Test Comments Results Result Comments Source Urine Culture 2022-04-09 01:22:53 Test Item Value Reference Range Interpretation Comme nts Final Report (test code = 8488) No growth Path Review - Urine (test code = The results have been reviewed and 8483) electronically signed by Pathologist:DERIK BERUMEN MD #[id number] [place] [facility]ort[facility], [id number] 17:00:25 Test Item Value Reference Range Interpretation Comments Cortisol (test code = 14.20 See_Comment Cortis ol reference 2143-6) intervals are e stablished for the morning hours from 6-10 am and aft ernoon hours 4-8 pm. D ue to circadian rhyth m of cortisol levels in serum and plasma, the sample collection time must be noted. Caution should be exercised when interpreting cyr ch values and done in con junction with clinical c ontext. Serum Cortisol Reference Ranges: Morning (6-10am) (4.8 - 19.5)Aft ernoon (4-8pm) (2.5 - 11.9) [Automated mess age] The system which ge nerated this result tra nsmitted reference range : 4.80 - 19.50 mcg/dL. T he reference range was not used to interpr et this result as vidya l/abnormal. [place] [facility] Children[facility]osphorus [id number] 08:47:17 Test Item Value Reference Range Interpretation Comments Phosphorus (test code = 2777-1) 2.6 mg/dL 2.5-4.5 [place] [facility] ChildrenOsmolality [id number] 22:39:56 Test Item Value Reference Range Interpretation Comments U Osmolality (test code 346 See_Comment Urin nehal osmolality may = 2695-5) vary widely, de pending on the state of hydration. Hume om urine osmolality can range from 50 to 1400 mOsm/kg H2O depending o n fluid intake. In jose viduals on average flui d intake, urine osmolalit y is typically 300-9 00 mOsm/kg H2O.Uni ts of measure: mOsm p er Kg of water. [Automat ed message] The sy stem which generated this result transmit cliff reference range : 50 - 1,400 mOsm/kg H 2O. The reference range was not used to interpr et this result as normal/abnormal . [place] [facility] ChildrenHemoglobin2022-07-04 22:35:13 Test Item Value Reference Range Interpretation Comments Hgb (test code = 718-7) 10.8 See_Comment L [Au tomated message] The system [employer] generated this result transmitted ref erence range: 14.0 - 1 8.0 gm/dL. The refe rence range was not u sed to interpret this result as normal/abnor mal. Lab Interpretation (test Abnormal code = 58132-7) [place] [facility] ChildrenChloride [id number] 21:32:20 Test Item Value Reference Range Interpretation Comments U Chloride (test code = 66 mEq/L Norm al range not 2078-4) available for c ollections less than 24 ho urs in duration. [place] [facility] ChildrenPotassium [id number] 21:32:19 Test Item Value Reference Range Interpretation Comments U Potassium (test code 23 mEq/L Vidya l range not = 7802) available for c ollections less than 24 ho urs in duration. [place] [facility] ChildrenCreatinine [id number] 21:32:18 Test Item Value Reference Range Interpretation Comments U Creatinine (test code 39.6 mg/dL 40.0-278.0 L The reference range = 2161-8) listed is for f irst morning urine collection. Lab Interpretation (test Abnormal code = 36770-7) [facility] [id number] 21:32:17 Test Item Value Reference Range Interpretation Comments U Sodium (test code = 76 mEq/L Normal range not available 2955-3) for collections less than 24 hours in dur ation. [place] [facility] ChildrenACTH2022-07-04 19:18:36 Test Item Value Reference Range Interpretation Comments ACTH (test code = 69 pg/mL 7-63 H Results gr eater than 2141-0) 1826 pg/mL may not be reliable due to matrix effect w ith extended diluti on as it exceeds the hoop flaring machine operator helper's recommended claros it. ACTH reference intervals are established for the morning hours f rom 7-10 am. Due to the circadian rhyth m of ACTH levels in plasma, the flaco ple collection time must be noted. Cauti on should be exerc ised when interpreti ng such values and done in conjunction with clinical contex t. Lab Interpretation (test Abnormal code = 32940-6) [facility] [id number] 19:13:52 Test Item Value Reference Range Interpretation Comments Sed Rate (test code = 22 See_Comment H Correc cliff results 4537-7) called to Reji Armstrong / Milka at 04/07/2022 1:15:3 8 PM CDTCorrected fr om 22 mm/hr [HI] on 04/07/22 14:13: 51 CDT by Krys Whitlock.Correcte d from 24 mm/hr [HI] o n 04/07/22 13:09: 03 CDT by Shakira Whitlock ta. [Automated mess age] The system [employer] generated this result transmitted ref erence range: 0 - 9 mm /hr. The reference r tejas was not used to interpret this result as normal/abnor mal. Lab Interpretation (test Abnormal code = 09101-3) [place] [facility] Add-On Test 2022-04-07 18:44:02 Test Item Value Reference Range Interpretation Comments Ordered (test code = Test Added 6899) Test Needed (test code = total cortisol level 1394) [place] [facility] ChildrenProlactin2022-07-04 16:38:48 Test Item Value Reference Range Interpretation Comments Prolactin (test code 8.6 ng/mL 4.0-15.2 Results greater than = 2842-3) 4700.0 ng/mL ma y not be reliable due to matrix effect with ext ended dilution as it exceeds the manufacture r s recommended l imit. Caution should be exercised when interpreting cyr ch values and done in conjunction wit h clinical contex t. [place] [facility] ChildrenTestosterone [id number] 16:38:47 Test Item Value Reference Range Interpretation Comments Testoster Tot (test 324 ng/dL 193-740 Referenc e Ranges: code = 2986-8) Male: Age 20 - 49 249 - 836 Age >=50 193 - 740 Female: Age 20 - 49 8 - 48 Age & gt;=50 3 - 41 [place] [facility] ChildrenFSH [id number] 16:38:46 Test Item Value Reference Range Interpretation Comments FSH (test code = 11.0 See_Comment Female Foll icle Stimulating 5571) Hormone Referen ce Ranges: LOW HIGHFollicu lar 3.5 12.5Ovulation 4 .7 21.5Luteal 1.7 7.7Postmeno pause 25.8 134.8 [Automate d message] The system which ge nerated this result transmit cliff reference range: 1.5 - 12 .4 mIU/mL. The reference range was not used to interpret th is result as normal/abnormal . [place] [facility] ChildrenCRP2022-07-04 16:38:45 Test Item Value Reference Range Interpretation Comments CRP (test code = 9.06 mg/L Reference [place] CRP 34911-5) assay are as fo llows: Reference range s when used to assess cardi ac risk: <1.00 mg/L Low cardiovascular risk 1.00-3.00 mg/L Average cardiovascular risk >3.00 mg/L High cardi ovascular risk.Reference ranges when used to assess inflammatory responses: Less than or equal to 10.00 mg/L. [place] [facility] ChildrenLH2022-07-04 16:38:44 Test Item Value Reference Range Interpretation Comments LH (test code = 7.8 See_Comment Female Lutei nizing Hormone 51903-2) Reference Range s: LOW HIGHFollicular 2.4 12.6Ovulation 1 4.0 95.6Luteal 1.0 11.4Postmen opause 7.7 58.5 [Automated message] The system which ge nerated this result transmit cliff reference range: 1.7 - 8. 6 mIU/mL. The reference range was not used to interpret th is result as normal/abnormal . [facility] [id number] 07:24:05 Test Item Value Reference Range Interpretation Comments Sodium Lvl (test code = 127 See_Comment L [Au tomated message] 2951-2) The system [employer] generated this result transmitted ref erence range: 136 - 14 5 mEq/L. The refe rence range was not u sed to interpret this result as normal/abnor mal. Lab Interpretation (test Abnormal code = 27180-3) [place] [facility] ChildrenCOVID-19 (SARS-CoV-2)Kesgamomcfri-[id number] 03:03:17 Test Item Value Reference Range Interpretation Comments COVID19 Not Detected Not Detected (SARS-CoV-2) (test code = 79555-2) COVID19 SARS Inpatient Indication (test Admission code = 05654) Covid 19 Comment See Note The antwon S ARS-CoV-2 (test code = [place] [address]) use on the urszula s Leydi System is a jonathan l-time RT-PCR assay in tended for the qualita tive detection of SARS-CoV-2 (COV ID-19) viral RNA in nasopharyngeal swabs from either individuals lina pected of COVID-19 by their healthcare prov ider or from any individual, inc luding individuals wit hout symptoms or oth er reasons to susp ect COVID-19. A fac t sheet for patie nts provided by the hoop flaring machine operator helper ([employer]) can be rev iewed at: https://www.fda .gov/m edia/447096/yovani nload. A fact sheet fo r Health Care pro viders is provided by the hoop flaring machine operator helper ([employer]) and can be reviewed at: https://www.fda .gov/m edia/122143/yovani nload Results must be interpreted wit hin the context of all relevant clinic al and laboratory find ings and should not form the sole basis for a diagnosis or treatment decis ion. Positive result s do not rule out bacterial infec tion or co-infection with other viruses. Negative result s do not preclude SARS-CoV-2 infe ction and must be com bined with clinical observations, p atient history, and/or epidemiological information. Th is assay has been authorized by t FDA for use only un chi Emergency Use Authorization ( EUA) in laboratories that have been CLIA-certified to perform moderate-comple xity and high-comple xity tests. The Microbiology Laboratory at [facility], CLIA Accreditation #[id number] and CAP Accreditation #[id number], verif ied the performance characteristics of this assay. Int ernal controls are ed to monitor all sta ges of the test proces s. [place] [facility] ChildrenOsmolality2022-07-04 02:56:22 Test Item Value Reference Range Interpretation Comments Osmolality (test code = 269 See_Comment L Unit s in mOsm per kg 2692-2) of water. [Auto mated message] The sy stem which generated this result transmit cliff reference range : 275 - 300 mOsm/kg H 2O. The reference r tejas was not used to interpret this result as normal/abnor mal. Lab Interpretation (test Abnormal code = 29702-0) [place] [facility] ChildrenPOC Chem 8 without Hemoglobin and [id number] 01:24:35 Test Item Value Reference Range Interpretation Comments POC NA (test code = 123 See_Comment L [Automa cliff message] 79780-6) The system whic h generated this result transmitted ref erence range: 138 - 14 6 mEq/L. The refe rence range was not u sed to interpret this result as normal/abnor mal. POC K (test code = 4.3 See_Comment Method de scription: 49727-4) The i-STAT is a n analyzer used f or in vitro quantific ation of various anal ytes in whole blood. The device uses a s ronen disposable cart ridge which contains microfabricated sensors, a calibration frantz ution, fluidics system , and a waste chamber . Each test cartridge contains chemic ally sensitive biose nsors on a [employer] ip that are config ured to perform spec ific tests. The microfabricated sensors measure analyte concent ration by an electroch emical assay. [Automat ed message] The sy stem which generated this result transmit cliff reference range : 3.5 - 4.9 mEq/L. Th e reference range was not used to int erpret this result as normal/abnormal . POC CL (test code = 88 See_Comment L [Automa cliff message] 2068-12) The system [employer] generated this result transmitted ref erence range: 98 - 109 mEq/L. The refe rence range was not u sed to interpret this result as normal/abnor mal. POC VTCO2 (test code 27 See_Comment [Autom ated message] = 2026-10) The system [employer] generated this result transmitted ref erence range: 24 - 29 mEq/L. The reference r tejas was not used to interpret this result as normal/abnor mal. POC Anion Gap (test 13 mmol/L 10-20 code = 38537) POC BUN (test code = 45 mg/dL 8-26 H 6299-2) POC Crea (test code 1.1 mg/dL 0.6-1.3 Medicati ons, = 38559-1) especially hydroxyurea or supplements, cyr ch as ascorbate, can interfere with test results causing a falsely and significantly h igher result than exp ected. If a problem is suspected with a patient's resul t, a sample should b e sent to the laborato ry for confirmatory te sting. Method descript ion: The i-STAT is a n analyzer used f or in vitro quantific ation of various anal ytes in whole blood. The device uses a s ronen disposable cart ridge which contains microfabricated sensors, a calibration frantz [employer], fluidics system , and a waste chamber . Each test cartridge contains chemic ally sensitive biose nsors on a [employer] ip that are config ured to perform spec ific tests. The microfabricated sensors measure analyte concent ration by an electroch emical assay. POC eGFR-AA (test 71 See_Comment Normal eGF R >= 60 code = 60250-4) mL/min/1.73 m2 The eGFR is calcula cliff [...] ith normal or high GFR >=902 Kidney da mage with mild decre ase in GFR 60-893a Mil d to moderate decrea se in GFR 45-593b Mod erate to severe decre ase in GFR 30-444 Daniela re decrease in GFR 15-295 Kidney f ailure <15 (or dialysi s) [Automated mess age] The system [employer] generated this result transmitted ref erence range: >=60 mL/min/1.73 m2. The reference range was not used to int erpret this result as normal/abnormal . POC eGFR-GOLDIE (test 61 See_Comment Normal eG FR >= 60 code = 84269-2) mL/min/1.73 m2 The eGFR is calcula cliff [...] ith normal or high GFR >=902 Kidney da mage with mild decre ase in GFR 60-893a Mil d to moderate decrea se in GFR 45-593b Mod erate to severe decre ase in GFR 30-444 Daniela re decrease in GFR 15-295 Kidney f ailure <15 (or dialysi s) [Automated mess age] The system [employer] generated this result transmitted ref erence range: >=60 mL/min/1.73 m2. The reference range was not used to int erpret this result as normal/abnormal . POC Glucose (test 89 mg/dL 70-99 Medication s, code = 05283-3) especially hydroxyurea, ca n interfere with test results causing a falsely and significantly h igher result than exp ected. If a problem is suspected with a patient's resul t, a sample should b e sent to the laborato ry for confirmatory te sting. POC Ion Ca (test 1.18 mmol/L 1.12-1.32 code = 00614-1) POC Sample Type Venous (test code = 6690) POC Clean Dev (test Yes code = 6672) Performing Lab (test MDA Main Main Ca mpus code = 96197) [facility] Cli nical Lab, [address] [facility], [facility] [place] [address]; Box Blank Machine Operator Helper: Danielle Nguyen MD Lab Interpretation Abnormal (test code = 68521-7) [facility] 00:04:27 Test Item Value Reference Range Interpretation Comments LDH (test code = 195 U/L 135-225 Results gre ater than 1651 19575-0) U/L may not be reliable due to matrix effec t with extended diluti on as it exceeds the man ufacturer's recommended claros it. Caution should be exerc ised when interpreting cyr ch values and done in con junction with clinical c ontext. [facility] ChildrenaPTT2022-07-04 00:02:22 Test Item Value Reference Range Interpretation Comments aPTT (test code = 32.7 See_Comment [Automate d message] The 61734-2) system which ge nerated this result transmit cliff reference range : 22.8 - 34.2 second(s). The reference range was not used to interpr et this result as vidya l/abnormal. [facility] ChildrenProthrombin Time with [id number] 00:02:21 Test Item Value Reference Range Interpretation Comments PT (test code = 5902-2) 15.4 See_Comment H [Au tomated message] The system whic h generated this result transmitted ref erence range: 11.9 - 1 4.1 second(s). The reference range was not used to int erpret this result as normal/abnormal . INR (test code = 6301-6) 1.22 0.89-1.10 H Lab Interpretation (test Abnormal code = 12723-5) [facility] Children[facility]inal[facility] w/Microscopic if [id number] 23:47:34 Test Item Value Reference Range Interpretation Comments UA Color (test code = Red Straw-Yellow A 86893-5) UA Appear (test code = Bloody Clear A 5767-9) UA Glucose (test code = NEG NEG mg/dL 5792-7) UA Bili (test code = NEG NEG 5770-3) UA Ketones (test code = NEG NEG mg/dL 5797-6) UA Spec Grav (test code = 1.009 1.003-1.035 5810-7) UA Blood (test code = Large NEG A Correc cilff from 5794-3) Moderate [ABN] on 04/06/22 18:47: 34 CDT by Mile Lockhart. UA pH (test code = 7.0 5.0-9.0 5803-2) UA Protein (test code = 100 mg/dL NEG A 5804-0) UA Urobilinogen (test NEG NEG code = 5818-0) UA Nitrite (test code = NEG NEG 5802-4) UA Leuk Est (test code = NEG NEG 5799-2) Lab Interpretation (test Abnormal code = 65798-9) [facility] Children[facility] with Microscopic 2022-04-06 23:47:20 Test Item Value Reference Interpretation Comments Range UA WBC (test code = NOT SEEN See_Comment [[place] cliff 38574-9) message] The system which generated this result transmitted reference range : 0 - 2 /HPF. The reference range was not used to interpret this result as normal/abnormal . UA RBC (test code = >182 See_Comment H [[place] cliff 65989-1) message] The system which generated this result transmitted reference range : 0 - 2 /HPF. The reference range was not used to interpret this result as normal/abnormal . UA Mucous (test code NOT SEEN Not Seen-Trace = 89164-8) /HPF UA Bacteria (test NOT SEEN NOT SEEN /HPF code = 09504-8) UA Squam Epi (test NOT SEEN None-Occasiona code = 58502-1) l /HPF KATLIN (test code = Some reporting KATLIN) parameters within the Urinalysis test have changed due to the implementation of new instrumentation in the Main [place], allowing greater sensitivity of measurement. Urinalysis results reported by the [facility] using existing instrumentation, as well as Urinalysis testing performed manually or by backup methodology at the Main [place] will remain relatively unchanged. New reporting parameters and units will now be reported for all campuses. Lab Interpretation Abnormal (test code = 52534-9) [facility] Interpretation 2022-04-02 15:40:55 Test Item Value Reference Range Interpretation Comments Submitted Clinical History [id number] (test code = 85958) mbGFuZzEwMzNcZnRuYm pcdWMxIHtccnRmMVxzc 6LxA0HtAmWmIKkzbrEu XGRlZmxhbmcxMDMzXGZ 0bmJqXHVjMVxkZWZmMH oqNy9ndNJzdRyyBmIsU SGfp3vtvbNKavelaCa0 y4maMQJhMeQ2zXCgMYj pF3znluEvmUTaHSEcQP o8lK27HPAozV8znKLdX QnyrpVzOqZ0ECjoQMSj CxP0VQWhhFLuXRBeH4k yZWQwXGdyZWVuMFxibH DbRID1nHtqx7A5zVVqd GVldHtcZjBcZnMyMiBO a3GuZKy4qYpeN1LaJNG dXrZ6bROcWLZwCBjyRH UtAPLlutA3mH64TEgkc jC1lCJua2Iqw83cx680 fJ6zfTEtSIS7LRUiOZV zeOPyRLGjEQJ9QMAtbK ZcS6bnJVSaFU2ygorgQ ZwsAYnmKGPxoWI0PIFk aVGmC6CmVTEoSKavXMJ xoar9PoXpDx0lnPOhxE urPAapw0scl3ufoJNjO bm4YNJsJoMkDammOMii x7Yup6krJBFtku9rKVN 9uRCenNhez2Q2qUJjOA SovNIzxmPsPYBkIkU0J IstRV9vwy57FNVmVCK8 wx1mbDBhsAwilhFqdQY hIZlxO1MbZKOmo075VY JgX6PaRIXog5G2swKxG nCmAHMofSG3bxY7TFRa HSg9jVPnguM4mpMmeCU kX1qiwW6cEUIvIJ4thn xtg4vhUGlwARzbGGLgh MA9bgC2WOMgvJGdN3Wd kG7iRYDsYJyeBSDikdh 3VfQtNr6sjGVtiVhnFZ xzYmtwYWdlXHBnbmNvb nRccGduZGVjXHBsYWlu XHBsYWluXGYwXGZzMjR avAhsiHcqyK1eUeZiJo KsLPctPE6uLFVrU9liy TOcLYMzPUDxH9sqWzCn oZ4xzYuhSYbcfoThVGV lGSJaDECgD5OoH1OiXS tHXdsuUI6feMhqzZ7zI nCxVsZmGzceCZ6vVJCf M7ibuFWfHEOaWCHjK5m jJnHxpI6ntQilVBlann TgBJPcgv63 Diagnosis (test code = 34) r3rtsBGhYMGskXI5FKN hIGAev7vij9XcjRLsfQ IaTDcxpERiimHohb91t YR5zJ79LU9kSFRnQfR4 QFBskcU1Qam8UDUpGSE fzWKsB443s3zsr1mtof VvpCB6VSZvEESbR4GhG O8kXHPwdHMwL64abYMc NEO6RWCqQLMxqCYoVCC rGXY0VDIdwEKxU6tyQU SwUF0nrqhyPGszONbrK LSdeJK5CPEhaNHoO8Ku HKNvFYzmHEXvyli6CkK iAg8gcJMrqBzcQNaaKC JkXHBsYWluXGZzMjAgQ I3vRWFgNOJPidcaJAV0 MGAhNKEfCBQuUKKuN7r 0IGxhdGVyYWwgYmxhZG PwtiX0QMloJYDlxacwm qYssCOzJX7xYPAfz1Ra dGlvbjpccGFyXHRhYlx jZjAgVVJPVEhFTElBTC NDHMTMNT6IJGEmZOiXE 0oaT0ZRYYDcUNzUGxGW OBWRRCuZVM6dJWGXBY3 AHAZJV1HZALVeFXIuce xmaTcyMCBNdXNjdWxhc prrGJOtd9MvxMTeoHEh w5FdaXAgpvHveU4cbfV eeHWiHTVdpBM9nR0lga 0pyFWrJL0iHHWsYtxga XRpdmUgbHltcGhvdmFz P3HgFOImgC00FWVcn08 xhMDau2RdmS7ojOObNQ ZpMFxjZjFccGFyIENDR 8ybUTZ3 Gross Description (test k7uwrCChKSTgfUY1RPU code = [id number]) kADMck6myb4MvfYVfkV WdPDnenWZzavPasm77n FB1iY98QN9qVGVlKdJ0 DZNxeyL6Tqn8STJmLTU zxEQkC133t8kju0pzfw IjxPE7AQIqFEInO1BgC F1cHPQekVGxM91ssNSo PPS2TKWhOLLaqSKiKJA jJDB3KGEwyWBtW5zzKD AtRU9ypojzIKyvKHvyK CCngCB6AIOdrCIsC9Ok LGWeIVxwAFWjotn0PjI gFg5ztVBeoMalPKnjWJ Quw1gsUDRjjAKeDGU7K FxcaWQgNTEwMDAgXFx0 WPNhTKkyzNKcLG8gzOn tUlcvoCdzz8KfeQVxPP lkIDUxMDAyIFxcZGIgT 4OMQQIsBXOwZRL0IGNq RRv3QPqrK8BMEYUgNUC 6JRN2TPHaFpT6WNy3MD MQUw8tTBO7ONWlRyC4S TK3SWK1YlXcAVKxOtBe XGZsIFxcZiBBcmlhbCB cXGZzIDEwIFxcZmIgXF nqI49odLvqaX8qGlovw vRaMWD8GSZkdhzoNzFn VXJpbmFyeSBibGFkZGV yLCByaWdodCBsYXRlcm OaFQWnCYWoOHHwk3Iih EhjqWDwd1Yyu9d1MNVd HbXlOUJcS3Ndv17lSXQ leeMqImwwIjLeM0WsJO URqBo2lKJqYQEeaVKvH QR1KCWgfz7uoO6vMAOr SLRkYG2kub78scDpYZA 6iHSceRemW8S1eXQlmL plZCBmcmFnbWVudHMgb 2KisFvyj1CoZP7pAXY3 cmluZyAyLjQgeCAxLjU vaXQaDdCvX14ykP6nOP dncmVnYXRlLCBlbnRpc hYgeAFkuOHqsQY4PCPo gL1sDTAmITCfVUAhiHY vfSHkoLchDdqnwNW7UQ hvPoswcK7zdITNDKHTJ ekKAqmsbjFiDM9AMI2Q EcWTAG32GlIuMHI6ZXw QS5BGkUL2Mde3FWr0oO tcZmxkcnNsdCBcJzFjf P5LOQwtLdzgbUX9MZkg VpusfY2fiWAGISWGGbn GAxfpxiGtCM7PBI5KHQ 6LbMXpCWO8rOB8FABVN njwdXE7jFC5hK91UFEn BXMnqINuVMxiS466KDU jAWrhVAUuOsE3HZYnlD MtERW9YK9yfMyvZXGgJ 3YdB0KzccS6CQYzca9= Biomarker Block(s) (test v1gxqFEqHGBgrAJ6MJP code = 9841) nOLKxo8jyg7CuvWEwkS CcGXjrpMLbgyLxgj20z CP2xS08EJ7eVUHzVbP0 FWZfseN1Glw5HFZtQIR yyNVaX924p3uth8ecck CsgEI7qEkpIKOzlmdzQ iE9LAnhOVPzibksDVr1 QHafYFMtkJV9GCYzvII sT0XiQNUwCU7alwm3KR E3FSmmAUKiHpO8PBXld AAqUYFimMmlYUips576 ZAO8XaWaUKFiejXwuEb msW1aUnNoUTJQQVbsIV J9 Disclaimer (test code = z8ijgMNmWGBbmLYlTuP 9844) vXJIbLBGdq2zfHXQrrJ FuZzEwMzNcZnRuYmpcd UBxOUTfCpMxj1sqw750 iOGjr1qzMHJiXwP1vCR qUPHpxAHoB565LRVrOI ruf9vyi9TtLARdhIXsg 9D0OKVGkdyzzSn3rUei J24ed9U5JsqbI6boAHJ eDVNhT0MePY3pBHYwVv f6ZRE2JJX8QUFgUCPhN 2GhNJ6cKRFctGXlRWz5 r5prdKzxUHSnYCN6v1u zKYrfyzCuBB1pyu5fpN m4j5xhukKzFLIjQVPjz XEBHSMsN6AqdMaqFz7z pQu3qDbpGnusHDP4Iqt 9XN3klz40nvl2gDwrTY XlkkeiTbE2KYqtKKLzv mmxYOg1QYgfSFRfiRH6 CKGxzHMkK5KoQKAeCW0 jmae2CUS6FMgjDWYnEj I7WOPcoJTlWDXftFikA Ipun848VRT5DsSsQM9t H0Qym0L7tR5ccFOiJWL axQSwIeSgKAGiwc4dbC HdBZwme7MuJWK2lvG2p LWxjHHxYZNpJO65Ojwr w3BwFsywLLN0LJIffyW hj1Cox7uiMtMrlkKtX6 fzK1XoUTLiYRZkGHQrZ rNctbAmm0Gvw3TgcHNk xVh1x2rjWOQzYWUkcMp ef7bnEIX8NIXpO2A5dV Kjb8tsKHioYWHxxZK7k oF8XRDdpQJsI6IvtU8y ETCdOM2bnfq9t9xfEOK 9HQtkGVYjJcA1sjN5JC BcaGVhZGVyeTcyMFxmb 480RIP3MdHsIHJlu3Ki Y2IejLpuI53jeZifY93 kGVJbzBmigT6vgMjloT 5cZjBcZnMyNFxxbFxwb JQcnwcrZQdezwR8ZNym wakdVADfCTltQ7jnIdV oVBOsjOtfMDsyw5WiSR QgUBLsKarjqpC6TYFXg 87eJDHjk6SnFPPtaO9j nCYfGUwgifUsdJL7TOr hdmUgYmVlbiBkZXZlbG 6iLOAtSB4aYVWbfqRzg m0mfrZkZVOxCBIpX7Mc cmlzdGljcyBkZXRlcm1 lemZsGQK8HMLVKG2FCB WzWUTbu31tCUJkkCcdu L8dxEUuiuLeTMVqw7Kt qE5jtPLGFIFuX3dqDH3 fOHmxl3ThiMXvdVBgqQ O0KXRmh4TxTuHqxuWlc NApjPZgF4ZneEboM2ip JOLnRCFgvcWpxJAwj7H kLPXghFT4jJEqKZ5SOt PUf29hIBIrEXXLypLcY ZSigYfyzYL7cxK8mI4k LiBJZiBhcHBsaWNhYmx cDSJmy174lx0rokE5GL VxYLXartsym3HbXPHmE XPiiR85MKSvMHSkle3g gmzsfHSjdbMgU4Jpuyh 3yX3kJXDhLEszXZYaHG ZzMjJcbGFuZzEwMzNca GljaFxmMVxkYmNoXGYx MBfrN5vqWyOgPhZyRpe wYXJ9 [facility]ickCOVID-[facility] (SARS-CoV-2) PCR- Asymptomatic [id number] 02:39:59 Test Item Value Reference Range Interpretation Comments COVID19 (SARS Not Detected Not Detected CoV-2) Result (test code = ____[place] i s a 56500-4) qualitative reverse-transcr iptase polymerase brian n reaction (RT-PC R) developed for t he Nimo ANTWON 680 0 system and inte nded for qualitative detection of SA RS CoV-2 RNA in nasopharyngeal and oropharyngeal s wab specimens colle cted from any indivi duals, including those suspected of CO VID-19 by their health care provider, and t hose without symptom s or other reasons t o suspect COVID-1 9. A fact sheet for patients provid ed by the manufacture r ([employer]) c an be reviewed at:https://www. fda.go v/media/003653/ claudettelo ad. A fact shee t for Health Care pro viders is provided by the hoop flaring machine operator helper ([employer]) and can be reviewed at: https://www.fda .gov/m edia/052317/yovani nload Results must be interpreted wit hin the context of all relevant clinic al and laboratory find ings and should not form the sole basis for a diagnosis or treatment decis ion. Positive result s do not rule out bacterial infec tion or co-infection with other viruses. Negative result s do not rule out SARS-CoV-2 and must be combined wit h clinical observations, p atient history, and/or epidemiological information. "Presumptive Positive" resul ts are due to partial amplification o f SARS-CoV-2 targ ets and indicates l ow amounts of viru s present in the specimen at or near the limit of detection. Regardless, individuals wit h "Presumptive Positive" resul ts should be manag ed per institutional guidelines as individuals pos itive for SARS-CoV-2 virus, including use o f appropriate inf ection control protoco ls. Internal contro ls are included to ass ess for possible amplification inhibitors. If inhibition is detected, testi ng is repeated and if inhibition is confirmed the specimen is res ulted as "Invalid". W hen an "Invalid" resul t occurs, it is recommended to wait 3 days before submitting a ne w specimen for te sting if clinically indicated. This assay has been approv ed by the FDA for use only under Emergency Use Authorization ( EUA) in laboratories that have been CLIA-certified to perform moderate-comple xity and high-comple xity tests. The performance characteristics of this assay were verified by the Microbiology Laboratory at [facility], CLIA Accreditation # : [id number] and CAP Accreditation # : [id number]. COVID19 SARS DENTAL LABORATORY TECHNICIAN Swab Source (test code = 42552) COVID19 SARS Pre-OR Procedure Indication (test code = 40021) [facility] [id number] 12:53:10 Test Item Value Reference Range Interpretation Comments POC Crea (test code 1.2 mg/dL 0.6-1.3 Medicati ons, = 32807-1) especially hydroxyurea or supplements, cyr ch as ascorbate, can interfere with test results causing a falsely and significantly h igher result than exp ected. If a problem is suspected with a patient's resul t, a sample should b e sent to the laborato ry for confirmatory te sting. Method descript ion: The i-STAT is a n analyzer used f or in vitro quantific ation of various anal ytes in whole blood. The device uses a s ronen disposable cart ridge which contains microfabricated sensors, a calibration frantz ution, fluidics system , and a waste chamber . Each test cartridge contains chemic ally sensitive biose nsors on a [employer] ip that are config ured to perform spec ific tests. The microfabricated sensors measure analyte concent ration by an electroch emical assay. POC eGFR-AA (test 64 See_Comment Normal eGF R >= 60 code = 19188-9) mL/min/1.73 m2 The eGFR is calcula cliff [...] ith normal or high GFR >=902 Kidney da mage with mild decre ase in GFR 60-893a Mil d to moderate decrea se in GFR 45-593b Mod erate to severe decre ase in GFR 30-444 Daniela re decrease in GFR 15-295 Kidney f ailure <15 (or dialysi s) [Automated mess age] The system [employer] generated this result transmitted ref erence range: >=60 mL/min/1.73 m2. The reference range was not used to int erpret this result as normal/abnormal . POC eGFR-GOLDIE (test 55 See_Comment L Normal eG FR >= 60 code = 20749-3) mL/min/1.73 m2 The eGFR is calcula cliff [...] ith normal or high GFR >=902 Kidney da mage with mild decre ase in GFR 60-893a Mil d to moderate decrea se in GFR 45-593b Mod erate to severe decre ase in GFR 30-444 Daniela re decrease in GFR 15-295 Kidney f ailure <15 (or dialysi s) [Automated mess age] The system [employer] generated this result transmitted ref erence range: >=60 mL/min/1.73 m2. The reference range was not used to int erpret this result as normal/abnormal . POC Clean Dev (test Yes code = 6672) Performing Lab (test LUDA [facility] code = 13647) [facility] [place], [facility] ,[address] [place] [address], Point of Care Lab Dir chrissy: Kandace Taylor MD Lab Interpretation Abnormal (test code = 75316-4) [facility] (CONNER-CoV-2) PCR [id number] 02:44:22 Test Item Value Reference Interpretation Comments Range COVID19 SARS Pre-OR Procedure Indication (test code = 21993) COVID19 SARS Result Not Detected Not Detected (test code = 53420-8) COVID19 SARS SARS-CoV-2 NOT Detected. Interpretation (test Reference Range: Not code = 31044) Detected Methodology: The [employer] RealTime SARS-CoV-2 assay is a qualitative real-time reverse chemist intern polymerase chain reaction (alternative medicine practitioner-PCR) test to detect RNA from SARS-CoV-2 in nasal, nasopharyngeal and oropharyngeal swabs from patients with signs and symptoms of infection who are suspected of COVID-19 by their health care provider. The [employer] RealTime SARS-CoV-2 performed on the RADSONE000 System is a dual target assay with primers and probes for the RdRp and N genes. Results must be interpreted within the context of all relevant clinical and laboratory findings, and epidemiological risk factors. Positive results are indicative of the presence of SARS-CoV-2 RNA; clinical correlation with patient history and other diagnostic information is necessary to determine patient infection status. Positive results do not rule out bacterial infection or co-infection with other viruses. Negative results do not preclude SARS-CoV-2 infection and should not be used as the sole basis for patient management decisions. The Paez RealTime SARS-CoV-2 assay is for in vitro diagnostic use under FDA Emergency Use Authorization only. Testing is limited to laboratories certified under the Clinical Laboratory Improvement Amendments of 1988 (CLIA), 42U.S.C. 263a, to perform high complexity tests. The Test was performed by the CLIA-certified, high-complexity Molecular Diagnostics Laboratory (MDL) at [facility] under the Food and Drug Administration (FDA) s Emergency Use Authorization. Factsheet for patients: https://www.[facility].org/ AbbottFactSheetPatientsFact sheet for healthcare providers: https://www.[facility].org/ AbbottFactSheetHCP Test performed by:[facility] Molecular Diagnostic [address] [place] [address] [facility] ChildrenT32022-03-30 16:00:13 Test Item Value Reference Range Interpretation Comments T3 Total (test code = 3053-6) 76 ng/dL 80-200 L Lab Interpretation (test code = Abnormal 82060-5) [facility] ChildrenUric [id number] 15:45:18 Test Item Value Reference Range Interpretation Comments Uric Acid (test code = 3084-1) 5.7 mg/dL 3.4-7.0 [facility] Biopsy Interpretation 2021-10-02 18:54:46 Test Item Value Reference Range Interpretation Comments Submitted Clinical History i4suuSFnBIUjt5olEOL (test code = 74031) mbGFuZzEwMzNcZnRuYm pcdWMxIHtccnRmMVxzc 8LrF5GzRcZeMHqjbxNm XGRlZmxhbmcxMDMzXGZ 0bmJqXHVjMVxkZWZmMH pbNv2jxPWhhJycUnUgD MHxl3uuaeUJhitljHb3 b7wzKQBhQdM4yJDyCQh wM5mmuyOdqNRaIBJvJQ l7zR85WYNmgC5yoZLyZ HzvspHgSfT6HAmiRAVe JnE7RGPguBAiRQNhE8h yZWQwXGdyZWVuMFxibH ExAFO0yTigd5K8eAHqo GVldHtcZjBcZnMyMiBO z9RkWIt7gYowL6VzFEI eYvD7yTEbGJXgZYwlKT UqQDCnofJ6gC80YQeaf eU1qNLws2Kkg85zy150 jZ7kcDZdMEB7SZLfEPR zzUCoHEJzVDJ3NMFtzK XuW1laUHBhXX1bpmhjD ZdlKNjpBPGzpIV9EGIy iSAvH5EhEITpDBgjGFQ ndzb3KoXoJh5miVIzmV otMWbdn8grt5dkiSOhD ne6TNVgAmSqRqjwWPms q1Zkj4drLXRvkh4jNXS 4dCAzyUikv2P4uXStTC EdjHNdfkFvLUAaAfF8X JbsQR5vrg18FIMeWYG6 wd7xcWExgLlxfoJkdPM rBAcqH5EjZGKse668MR DyU5OpHZIsj3W6ecExV sEuIUAibEZ8acR5LKNa FAc2iPRiknI7meJtoZE lT0fesW3kYXKuFP7hld fvw6hpPRrtPHgrSLBky WG5tvR4JMFtsOSjV6Wd dC8wEQWuPRlkCHTsikq 1FfZbWy8wpCYbuJhvVU xzYmtwYWdlXHBnbmNvb nRccGduZGVjXHBsYWlu XHBsYWluXGYwXGZzMjR keWrzzQjniS9kTgGqNk LeYFvgJS1eVJTvC6qji FHdOLWsNYMzY1tiLyGh sT6nnYrjYFllngOxYXM jy1GkDKVlnCziU8KzV9 edj54zQP9jGNAqtSVjj N0iREEhQUD1FNkMOMLj RAR1WUyeAXFzBkXgTNu dS9QbcOIjVQJnfX5bjD Yfn0CrPwQdioGsNbW7R jRzBU9goQktdI0tDwKy QxVfNgnzWJ6xIZHuI1q xaVWlNFFkGFLcD0wmNd LnmT1ygEbsKTjneqLoR HBhcn19 Diagnosis (test code = 34) j1lhvDPiPWIefAD4QsN vTIVln5kdq9CesTZzmU CiFDnkkVUwhfBome32c YX2xK86HK3hHMRrBzX3 BQVbgfP9Dlo1YXXxGAE waAGpK726u0wsa2triv SniSW7QHZgNGVeZ6FzD P4pNDJytFLuD73oaBYu YBJ8VOVtXGFiaNGjCBW zTYU9LHFaaHCqQ2amTF QkRA3sujefIGtoQZgzX MBjgYS1ZSGguEDlB7Iv UJHtDLpuGTCpbai8UvW hIe3zsSBzrRrvATmfVH JkXHBsYWluXGZzMjBcY 9TuYXF3TXWznO7gAQDg N3p0DQIqEUZ3UNMveAb zrVIsZtfeUAOzaPe6Uv BcbGluNzIwXGNmMCBTa 2luIGFuZCBzdWJjdXRp lkR7zMVuSJdkSInchqg oi9JhA8bhOUxmp074za Mjk9Zgim1qbTCiDNSZL 4EDPVPXGRkrR6BSJ1aV C62QXJQXZ5QUMJFDOLT KSCHJHINYJcMDV8gBEG BQQVRURVJOUywgUElHT UVOVEVELCBJTktFRCBN FUQGVE8GDSHBQPKDHeJ MNlinsS8jYQKmE5esee 60yoRrRCZ4aM9tQgKiw VZwG9QkKBKeJKFio6vw iZZ2hEv7rEWxOYdeREA rT8GkBEKotI7uicMtOU xwYXJcbGkwXGxpbjBcc TUrEWZsWBKTVzQJs1vd QHGvQB30suKlBPHcQ2t aJCOxwKebk0B8XASnpv wriPyjIPaneN75MfWvK 9LdMXCixD5oBV0iLKU9 DbS0qYeiERfvpTttuNF hbGluZyBzdXJnaWNhbC D6f2ZnHW7mH6NzDlljR OFyRkBALPwgO2GBIFYJ AULBIW1METJsBOTJBFA SRklDSUFMIEFORCBFQV VKRIWVT8JWDASAWBBQF LWCNo4UPAXOXSEQID4U IEFSRSBGUkVFLlxsaW5 aKUVuDtX6m3VfFwKib3 ikb6GwFBDkG8DoyyuiC GQrGG6wNGImHJ2qCXHd mUymP7XkkRNnnw6unLh qWRYODIDjD71mdFKelS 5ccGFyfQ== Comment (test code = 9835) n9oqfCXzPJPmmPX6YbX qNNJsc0fst0VgbLJfhM XsGYaeuEZaafTquk63z AC5aD59TR6fYNUvCeD7 YSQsciS2Hpg2OUFpBTB loMWdW316w5loc9cfwu ApaSC6zZptZHUyhummD mF3WPsfGEVplyexAJw4 ATiuKFUfbOS0MCXadZO yT4OnDBVeXK8qfmk3UY F3THmuKSBbOwB0SLBsw NTbUPWcqCrjCCtco114 ETE1OdPkCSZdwlYypWt fcH0zYlQgWHFBNZAuGh ogTXVsdGlwbGUgYWRka TYnd05ynMPiVHMrXSVx qTkjp3RtURHlA5Pzq51 zIGhhdmUgYmVlbiBjdX QxRS6mSDH9EZ7uswVgE iAgXHBhcn0= Gross Description (test o9nhaDChNXJffDTIRGs code = [id number]) wMFxhbnNpXHNwbHRwZ3 CwdjmkJUzzZY4jNE8qb QjnxNQfrTTwLH3CQMDz ZmYxXHBhcGVydzEyMjQ rBMJfmEWknHE1DUOkAP 1hcmdsMTgwMFxtYXJnc rQ7YKZgnZTzG7FzDDXs PW9yttwdACL3JGobkM3 clyDSSqwqJn7fiPNlxF tcZjFcZmNoYXJzZXQwX FPdqDqdVAEuRHv9yF6D FiqiK78yr6O6Qvv4ULA uYMSsL5LvBT0dFTSxmD YhP42YZtnwOYR0JEGFK ikgZQTvKK4Hg4xvWNAw jCSbKTR0BIgjoKHdMIH nNWGyGMv0XWWaRNmdjD VtNX8gtMiuXjbvjIlik 2VjdCBcXGlkIDUxMDAy MVorKIOmIN1MBbFuXXQ dYGZ5XJSrWQz7NYk5YF 1IBiEfVRYjZSb4WIZnA pUxVKc8EJejCF8VIXft YOO2JDHrNqE4JYVzGkA cXHQgMiBcXGYgQXJpYW wgXFxmcyAxMCBcXGZiI SrrBybaXEyvR21odDqr lT8fKmoirfEdXPP1TOD hciANClxwbGFpblxlcG ljTmVzdERvYzEgDQpcb HRycGFyXGxpbjBccmlu MCANClxsdHJjaFxiXGN qFQzlkzWrYDDoxO3qDA ZqN5y5RUQiQNX5WfkdX FxjZjAgIEEgdGFuLCBo YWlyYmVhcmluZywgaXJ gVZk6sUCbEPFvgV8zNZ vnfJYko13kbEGmp9Lkp Q7zDKTeYiY9ZGToOqLx bSBhbmQgZXhjaXNlZCB 0byBhIGRlcHRoIDAuOS QqrX2pMTGmHUDzHXdeH YIhn4H0vDQiQGP2sZDu hRKiDAF6GGVucZzkGOc pdGhvdXQgZGVzaWduYX Tpi97sIR4vRSpwmKjuX mUgYXNzaWduZWQgYXQg bJrpMFNkXW7hA5xtF7o plJ5edBGdg67gFVBCjX Zxc4SfA7rdFK5qqISpc 3FnbELbzXkut2IslDgr bmVkLCBlbnRpcmVseSB jsAMvyZS6HDOga7CeyB IriPoujAa6WXnjIJZrK NQ5OrZONMcdZHFzKLwD JapqM17AVVpuZsQsfIC bMt2iSNRoopcrpQ6szb zuWgu8MAoeBtTqrHW4M ZlrLRBqcyajhY2twplo l3FlthijLDDkqqEZBmQ GD3GBT22rI46OIOnyTW EsIDEyOjAwIHRpcCwga Y1cNATtFSShjQT9LFHx LUEzLCAxMjowMCBoYWx mLCAyIHBpZWNlcyBlYW AxSaINMT7HWThqOglrP CBoYWxmLCAyIHBpZWNl cyBlYWNoOyBBNiwgNjo fWIX7aIOfVAnifdSvnS NyVANnEw3WVUXzhIDUL ZJ0QW8zEDh0EYpvXPGm A0FbH3HqizUogMSeGGR lytTbi4plQAN4OPZnoS HfbTMoFvSyLewcUNW2H QVsQDnyAR4Ct6icRHNz vAVlXUG8MNqikRChYWO jDQUgEZkgVlMqT0ZNZY MhCoNbIwaqLNAkGDl4V PqtJ1HEWPViCQO5LLt7 AUG7YgU1XQm3OONTIu8 wGMU9CpX5ASH1HGR2DZ D7SFmlpXOcFPjsIvEQn mlhbCBcXGZzIDEwIFxc CfNaUBiprJMePJ8weCm wbGFpblxiXGZzMjAgQj gphDCyVV2BNNUbZWpoM PMaaFFAQPX3YY6hDDNZ ClxsdHJwYXJcbGluMFx aqY0oAO6BKHg6qdEwQV HyI0TkFPFjEzNoN9ign mkcE3BnaMMddEVaESEm OlxiMFxjZjAgIEEgdGF uLCBoYWlyYmVhcmluZy wnmO5gpauswcGjOAXum 8fjAWA6I3wjeD7aEE6r MTG1mlypGkElObqzrQS uAecfS30xXH6gDAF5D6 hnAKLivV0rrWotWIKfZ mJudY4mFERcCMCxINnf LICgfbUoCUZrmwdyR3A kvCQocGRoMXRfk65umW Frq5NdiV1gCSImCQR6F VIlIvPimAK0eHgoqBTw giYiEobiC44aqZ7qwZb gYLEjn8Zcq9OvqVIxE1 vwOoTtESygDU8jbpkwu cDyUUElHDikk9AlOPQc NCGeYOilmSOoMFW8hI1 hZEWyWAQxzVrpGNh5KM D2Xx9blNRaFGIeaiZXT Q2ZBo0yODRpcLDpHT6J I6KRTJjPYrBFL9CRTwB MGDwjoOxvbxuomN1yYF KvWITfgZQ2XREzTWI8M CgzIHBpZWNlcyBlYWNo KSBhbmQgQjYgKDIgcGl uN6ByXFilhaSvESrtUD TxIZoxJJJvD20te0OPf 6EnKAFeg3dzlSalo8Zt dGVuZFxwYXJccGFyZFx iyJ6kGfBkh9crlYv3SK qmkbJ9UBXlcl8qvUyyo P0vRDtuu3jsRVJ1YNNb bXVsdDAgDQpccGxhaW5 nGyLxPdk3DLkySCOmO9 QcT8SptfE1JWIhMSloP GZzMTYgDQp9 Disclaimer (test code = l2fytSYpSITvmTTdRzX 9844) eYAPyVDAjp1lzSHLwgQ FuZzEwMzNcZnRuYmpcd LGoLKHjVmFxl9joi972 nGKif2pmUZFmPdP7sGN lABPowXWjW349TXFdBI qsa8kci4ZxHGDbrVVst 1C1RUHAqkwotPl4zEpu S71fq1M7DrnnR8dgUWC yDUOaP7NfUM9nIXPyXo k5SZP4CBM6XMTxZJUaX 7PuOI9tORItgMWcDPc8 f7holLarQSKpWOI4l7s cTIbpufQsAW2rmr3eeH a9e4clzoRsUDQoELUbu HCBIVDaK3OsuZlbFh8r mNw3lDxoHvgcKFF3Ybr 8GH3tfa17dns7jUqxUV LamkuxUqP3OQzhZBNsj gsnOBv3PNexMJJwjFX9 GCLvuAPwV7UzWXBpAC0 jysx8YFR3RBgkOHSlRe Y1CFGyhACiUQKxqVbyQ Rgtm071MXB8ScUxDC4p R7Odx4D1gO4lsKTjWDM gsKBwZwIwGHJsmc1clO XiWFzak2PuUEH7ofS8u KBozSMdHTOjVZ14Njxe k9FqRdyiAPN9CUHgaoP np7Qtg2ppGmVwgtRqL9 beH9FzQPZgRDMuGXYcG kVvwwShe1Vxf1CesUUj qFi3a5lgFDWuSGGmuDi iq4fhFAX5XKYxC8A7jF Ezf9ujOKgmNCZmgHN9s gX6UPIseURxS0UglQ5z KHUbSP7hrzn6l7gnZUC 6AZmvJWVkLjV1qbJ3HE BcaGVhZGVyeTcyMFxmb 100TOA0ZtLwRIHwj7Cp L1PkcZtzY97gkTzqG26 qQQCwkHvxrV6wiEtsxF 5cZjBcZnMyNFxxbFxwb NSpqnxdFPlvyhW5EJeh shabGAXzZForF4ooJcR aARIjnZfeGLzpj2CxJG QsXMLiUwxjqpW4QXSWg 65aJYBtf5LgJMWumF0x qYTpLKfldtUqkLB5OEt hdmUgYmVlbiBkZXZlbG 2kCDNuLS8mIOOfduUfk w2lepRvAFQcLSHpQ3Nm cmlzdGljcyBkZXRlcm1 ltbNxDLN7QXANVS5QNC MmKSGjp10rHSLdvDjrn A5ztEWpdhIaXQYvi6Be sU5htXONYYGpR1rlDB7 sCHlzv0WcrRWyqWCxtF O5FACbb0ZvFnUeghBsx QNbnIVxK9UdkKhjU8tz FUOsKEAbktCyeDVgr8H nFOMcjWD9nJJlNP2ALd ALz34wMIJoRYGUcbJxS PWtmSvoxHL3ylX1aJ3x LiBJZiBhcHBsaWNhYmx vPRZin737wg1yesJ6FK LrVLXvehkdp1TaOOHzP DSpmP14WWKwRZHfrt3e wkjpcBSbzbZnH5Mvmnt 5gI4kEVZxVGclZGWfQE ZzMjJcbGFuZzEwMzNca GljaFxmMVxkYmNoXGYx UZfxI2geBxSlXhFvDnd wYXJ9 [facility]
--- NOTE | 2022-05-24 16:25 | RAD REPORT ---
EXAM DESCRIPTION: RAD - Chest Single View - 05/24/2022 4:07 pm CLINICAL HISTORY: SOB COMPARISON: Portable December 30, CT chest December 30 TECHNIQUE: AP portable chest image was obtained 05/24/2022 4:07 pm . FINDINGS: Lung volumes are low. Baseline interstitial pattern is accentuated by shallow inspiration. Bilateral pleural effusions are present increased from the prior imaging. Rounded mass in the craniologist ior mid left lung field is still present and not grossly different. Heart size is normal. Heart borders are partially obscured by the atelectasis and pleural fluid in e ach lung base. Upper lobe vasculature within normal limits. No pneumothorax. No acute bony abnormality seen. No acute aortic findings suspected. IMPRESSION: Bilateral pleural effusions are present slightly larger than seen on the December examinati on. The patient has chronic left base pleural change. Rounded mass in the mid left lung field not clearly different from December. Bilateral lung base opacification is mostly chronic disease though a mild edema or infiltrate could b e masked.
[2022-05-24 16:32] LABS: Absolute Lymphocytes (CBC) 0.6 K/uL (0.7-4.9); Hematocrit 38.5 % (39.6-49.0); Lymphocytes % 3.5 % (15.3-44.8); MCV 84.1 fL (80-100); MPV 6.5 fL (7.6-11.3); RBC Red Blood Cell Count 4.58 M/uL (4.33-5.43)
[2022-05-24 16:35] LABS: Protime INR 1.76
[2022-05-24 16:49] LABS: Albumin 2.5 g/dL (3.4-5.0); Bilirubin Direct 0.5 mg/dL (0-0.2); Bilirubin Total 1.3 mg/dL (0.2-1.0); Magnesium 2.2 mg/dL (1.8-2.4); Potassium 4.5 mmol/L (3.5-5.1); Protein, Total 6.6 g/dL (6.4-8.2)
[2022-05-24 16:59] LABS: Troponin High Sensitivity 253.1 pg/mL (<58.9)
[2022-05-24] MEDS ORDERED: METHYLPREDNISOLONE 125 MG INJ ONE (17:11)
[2022-05-24] MEDS ORDERED: IPRATROPIUM BROM 0.5MG/2.5ML ONE (17:12)
[2022-05-24] MEDS ORDERED: FUROSEMIDE 20 MG/ 2ML VIAL ONE ×3 (17:12→18:30)
[2022-05-24] MEDS ORDERED: ALBUTEROL INHALER 60 PUFF/8 GM IH ONE (17:13)
[2022-05-24] MEDS ORDERED: ALBUTEROL 2.5 MG/3 ML NEB SOL ONE (17:15)
--- NOTE | 2022-05-24 18:46 | ER ---
Nurse's Notes [facility] Name: Miguel Hogan Age: 86 yrs Sex: Male : 1935 Arrival Date: 05/24/2022 Time: 15:02 Bed 20 Private MD: Ralph Martins C Diagnosis: Unspecified combined systolic (congestive) and diastolic (congestive) heart failure;Dyspnea Presentation: 05/24 15:14 Chief complaint: Patient states: Pt reports SOB since last night. States he is kb3 currently being treated for a sinus fungal infection, bladder CA and lung CA. Denies fever. States productive cough with thick clear secretions. Coronavirus screen: Vaccine status: Patient reports receiving the 2nd dose of the covid vaccine. Client denies travel out of the [place] in the last 14 days. congestion, cough unrelated to allergies, difficulty breathing, runny nose, shortness of breath. Ebola Screen: Patient negative for fever greater than or equal to 101.5 degrees Fahrenheit, and additional compatible Ebola Virus Disease symptoms Patient denies exposure to infectious person. Patient denies travel to an Ebola-affected area in the 21 days before illness onset. No symptoms or risks identified at this time. Initial Sepsis Screen: Does the patient meet any 2 criteria? No. Patient's initial sepsis screen is negative. Does the patient have a suspected source of infection? No. Patient's initial sepsis screen is negative. Risk Assessment: Do you want to hurt yourself or someone else? Patient reports no desire to harm self or others. Onset of symptoms was May 22, 2022. 15:14 Method Of Arrival: Wheelchair kb 15:14 Acuity: ROSE 3 kb3 Triage Assessment: 15:18 General: Appears in no apparent distress. uncomfortable, Behavior is calm, cooperative. kb3 Pain: Denies pain. Respiratory: Reports shortness of breath cough that is productive, Onset: The symptoms/episode began/occurred gradually, the patient has moderate shortness of breath. Historical: - Allergies: 15:18 No Known Allergies; kb3 - Home Meds: 16:01 carvedilol 12.5 mg Oral tab 1 tab 2 times per day [Active]; Eliquis 2.5 mg Oral tab 1 em6 tab 2 times per day [Active]; Lasix 20 mg Oral tab 1 tab once daily [Active]; losartan-hydrochlorothiazide 50-12.5 mg Oral tab 1 tab once daily [Active]; Norvasc 5 mg Oral tab 1 tab once daily [Active]; - PMHx: 15:18 Hyperlipidemia; Lung Cancer; skin cancer; Bladder Cancer; kb3 16:01 Hypertension; em6 - Immunization history:: Adult Immunizations up to date, Client reports receiving the 2nd dose of the Covid vaccine, Last tetanus immunization: up to date. - Social history:: Smoking status: Patient/guardian denies using tobacco. Screenin:00 Abuse screen: Denies threats or abuse. Nutritional screening: No deficits noted. em6 Tuberculosis screening: No symptoms or risk factors identified. 16:31 Fall Risk IV access (20 points). Ambulatory Aid- Crutches/Cane/Walker (15 pts). Gait- em6 Normal/Bed Rest/Wheelchair (0 pts) Total Stafford Fall Scale indicates Low Risk Score (25-44 pts). Fall prevention measures have been instituted. Side Rails Up X 2 Placed close to Nursing Station Frequent Obs/Assesments occuring Family Present and informed to notify staff if they need to leave bedside As available Patient and Family Educated on Fall Prevention Program and strategies. Assessment: 15:45 General: Appears in no apparent distress. comfortable, Behavior is calm, cooperative. em6 Pain: Denies pain. Neuro: Mcneil Agitation-Sedation Scale (RASS): 0 - Alert and Calm Level of Consciousness is awake, alert, obeys commands, Oriented to person, place, time, situation. Cardiovascular: Heart tones present Patient's skin is warm and dry. Rhythm is. Respiratory: Airway is patent Respiratory effort is even, unlabored, Respiratory pattern is regular, symmetrical, GI: No signs and/or symptoms were reported involving the gastrointestinal system. : No signs and/or symptoms were reported regarding the genitourinary system. Reports. EENT: No signs and/or symptoms were reported regarding the EENT system. Derm: No signs and/or symptoms reported regarding the dermatologic system. Musculoskeletal: No signs and/or symptoms reported regarding the musculoskeletal system. Circulation, motion, and sensation intact. Range of motion: intact in all extremities. 17:35 Reassessment: Patient appears in no apparent distress at this time. No changes from jd3 previously documented assessment. states feeling better with breathing treatment . 18:35 Reassessment: No changes from previously documented assessment. Patient and/or family em6 updated on plan of care and expected duration. Pain level reassessed. Patient is alert, oriented x 3, equal unlabored respirations, skin warm/dry/pink. 19:00 Reassessment: No changes from previously documented assessment. Patient and/or family ll3 updated on plan of care and expected duration. Pain level reassessed. Patient denies pain at this time. 21:32 Reassessment: No changes from previously documented assessment. Patient and/or family ll3 updated on plan of care and expected duration. Pain level reassessed. 22:36 Reassessment: No changes from previously documented assessment. Patient and/or family ll3 updated on plan of care and expected duration. Pain level reassessed. Patient is alert, oriented x 3, equal unlabored respirations, skin warm/dry/pink. Vital Signs: 15:14 BP 117 / 59; Pulse 73; Resp 20; Temp 97.9; Pulse Ox 92% ; Weight 86.18 kg; Height 6 ft. kb3 2 in. (187.96 cm); Pain 0/10; 17:18 BP 112 / 62; Pulse 56; Resp 20; Pulse Ox 100% on 2 lpm NC; em6 18:00 BP 101 / 56; Pulse 60; Resp 20; Pulse Ox 100% on 2 lpm NC; em6 19:30 BP 116 / 66; Pulse 72; Resp 20; Pulse Ox 100% on 2 lpm NC; ll3 21:00 BP 135 / 75; Pulse 73; Resp 20; Pulse Ox 100% on 2 lpm NC; ll3 22:36 BP 111 / 60; Pulse 80; Resp 22; Pulse Ox 100% on 2 lpm NC; ll3 15:14 Body Mass Index 24.39 (86.18 kg, 187.96 cm) kb3 ED Course: 15:02 Patient arrived in ED. as 15:03 Ralph Martins MD is Private Physician. as 15:18 Triage completed. kb3 15:18 Arm band placed on right wrist. kb3 15:26 Kody Guidry PA is PHCP. cp 15:26 Barbara Nunez MD is Attending Physician. cp 15:39 Jenny Martinez RN is Primary Nurse. em6 16:01 Patient has correct armband on for positive identification. Bed in low position. Call em6 light in reach. Side rails up X2. Adult w/ patient. 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 Pulse ox on. NIBP on. Pillow given. 16:09 XRAY Chest (1 view) In Process Unspecified. EDMS 16:20 Inserted saline lock: 20 gauge in left antecubital area, using aseptic technique. Blood kc6 collected. 16:21 Basic Metabolic Panel Sent. kc6 16:21 CBC with Diff Sent. kc6 16:21 LFT's Sent. kc6 16:21 Magnesium Sent. kc6 16:21 NT PRO-BNP Sent. kc6 16:21 PT-INR Sent. kc6 16:21 Troponin HS Sent. kc6 18:45 Ralph Martins MD is Hospitalizing Provider. cp 22:35 No provider procedures requiring assistance completed. Patient admitted, IV remains in ll3 place. Administered Medications: 17:19 Drug: Albuterol - atroVENT (ipratropium) (3:1) (2.5 mg - 0.5 mg) 3 ml Route: Nebulizer; em6 18:30 Follow up: Response: No adverse reaction em6 17:19 Drug: SOLU-Medrol (methylPrednisoLONE) 125 mg Route: IVP; Site: left antecubital; em6 18:30 Follow up: Response: No adverse reaction em6 17:40 Drug: Lasix (furosemide) 20 mg Route: IVP; Site: right antecubital; jd3 18:30 Follow up: Response: No adverse reaction em6 18:56 Drug: Lasix (furosemide) 20 mg Route: IVP; Site: left antecubital; em6 18:56 Drug: LevaQUIN (levofloxacin) 500 mg Volume: 100 ml; Route: IVPB; Infused Over: 60 em6 mins; Site: left antecubital; Medication: 16:02 VIS not applicable for this client. em6 Outcome: 18:46 Decision to Hospitalize by Provider. cp 22:50 Admitted to Med/surg accompanied by nurse, via wheelchair, room 214, with oxygen, with ll3 chart, Report called to MEETA Stern 22:50 Condition: stable 22:50 Instructed on the need for admit, Demonstrated understanding of instructions. 22:52 Patient left the ED. ll3 Signatures: Dispatcher [employer] EDMS Juan, Kody Vega PA PA cp Davies, Jonathon, RN RN jd3 Ju Martinez RN RN ll3 Shira Keen kc6 Jenny Martinez RN RN em6 Sera Hidalgo RN RN kb3 Corrections: (The following items were deleted from the chart) 15: 15:18 Allergies: Etodolac; kb3 kb3 15:21 15:18 Allergies: telbivudine; kb3 kb3 16:01 15:18 PMHx: Hypertension; kb3 em6 17:42 17:00 Reassessment: Patient appears in no apparent distress at this time. No changes jd3 from previously documented assessment. states feeling better with breathing treatment . jd3
--- NOTE | 2022-05-24 18:46 | EDPHYS ---
Physician Documentation [facility] Name: Miguel Hogan Age: 86 yrs Sex: Male : 1935 Arrival Date: 05/24/2022 Time: 15:02 Bed 20 Private MD: Ralph Martins C ED Physician Barbara Nunez HPI: 05/24 15:45 This 86 yrs old Male presents to ER via Wheelchair with complaints of Shortness Of cp Breath. 15:45 The patient has shortness of breath at rest. cp 15:45 Onset: The symptoms/episode began/occurred gradually, and became worse today. Duration: cp The symptoms are continuous, and are steadily getting worse. 15:45 The patient's shortness of breath is aggravated by light activity, supine position. cp Associated signs and symptoms: Pertinent positives: productive cough, Pertinent negatives: chest pain, diaphoresis, fever, hemoptysis, vomiting. Severity of symptoms: in the emergency department the symptoms are unchanged despite home interventions. Historical: - Allergies: 15:18 No Known Allergies; kb3 - Home Meds: 16:01 carvedilol 12.5 mg Oral tab 1 tab 2 times per day [Active]; Eliquis 2.5 mg Oral tab 1 em6 tab 2 times per day [Active]; Lasix 20 mg Oral tab 1 tab once daily [Active]; losartan-hydrochlorothiazide 50-12.5 mg Oral tab 1 tab once daily [Active]; Norvasc 5 mg Oral tab 1 tab once daily [Active]; - PMHx: 15:18 Hyperlipidemia; Lung Cancer; skin cancer; Bladder Cancer; kb3 16:01 Hypertension; em6 - Immunization history:: Adult Immunizations up to date, Client reports receiving the 2nd dose of the Covid vaccine, Last tetanus immunization: up to date. - Social history:: Smoking status: Patient/guardian denies using tobacco. ROS: 15:50 Constitutional: Negative for body aches, chills, fever, poor PO intake. cp 15:50 Eyes: Negative for injury, pain, redness, and discharge. cp 15:50 ENT: Negative for drainage from ear(s), ear pain, sore throat, difficulty swallowing, difficulty handling secretions. 15:50 Cardiovascular: Positive for edema, Negative for chest pain, palpitations. 15:50 Respiratory: Positive for cough, with clear sputum, orthopnea, shortness of breath, on exertion. Negative for wheezing. 15:50 Abdomen/GI: Negative for abdominal pain, nausea, vomiting, and diarrhea, black/tarry stool. 15:50 Back: Negative for pain at rest, pain with movement. 15:50 Neuro: Negative for altered mental status, dizziness, headache, syncope, weakness. 15:50 All other systems are negative. Exam: 15:55 Constitutional: The patient appears in no acute distress, alert, awake, cp non-diaphoretic, non-toxic, well developed, well nourished. 15:55 Head/Face: Normocephalic, atraumatic. cp 15:55 Eyes: Periorbital structures: appear normal, Conjunctiva: normal, no exudate, no injection, Sclera: no appreciated abnormality, Lids and lashes: appear normal, bilaterally. 15:55 ENT: External ear(s): are unremarkable, Nose: is normal, Mouth: Lips: moist, Oral mucosa: pink and intact, moist, Posterior pharynx: Airway: no evidence of obstruction, patent. 15:55 Neck: ROM/movement: is normal, is supple, without pain, no range of motions limitations, no meningismus. 15:55 Chest/axilla: Inspection: normal, Palpation: is normal, no crepitus, no tenderness. 15:55 Cardiovascular: Rate: normal, Rhythm: irregular, Edema: ankle edema, that is moderate, JVD: is not appreciated. 15:55 Respiratory: the patient does not display signs of respiratory distress, Respirations: labored breathing, that is mild, intercostal retractions, are absent, Breath sounds: bronchial sounds, that are mild, are heard diffusely. 15:55 Abdomen/GI: Inspection: abdomen appears normal, Bowel sounds: active, all quadrants, Palpation: abdomen is soft and non-tender, in all quadrants. 15:55 Back: pain, is absent, ROM is normal. 15:55 Skin: cellulitis, is not appreciated, no rash present. 15:55 Neuro: Orientation: to person, place \\T\\ time. Mentation: is normal, Motor: moves all fours, strength is normal, Sensation: is normal. Vital Signs: 15:14 BP 117 / 59; Pulse 73; Resp 20; Temp 97.9; Pulse Ox 92% ; Weight 86.18 kg; Height 6 ft. kb3 2 in. (187.96 cm); Pain 0/10; 17:18 BP 112 / 62; Pulse 56; Resp 20; Pulse Ox 100% on 2 lpm NC; em6 18:00 BP 101 / 56; Pulse 60; Resp 20; Pulse Ox 100% on 2 lpm NC; em6 19:30 BP 116 / 66; Pulse 72; Resp 20; Pulse Ox 100% on 2 lpm NC; ll3 21:00 BP 135 / 75; Pulse 73; Resp 20; Pulse Ox 100% on 2 lpm NC; ll3 22:36 BP 111 / 60; Pulse 80; Resp 22; Pulse Ox 100% on 2 lpm NC; ll3 15:14 Body Mass Index 24.39 (86.18 kg, 187.96 cm) kb3 MDM: 15:29 Patient medically screened. 18:15 Data reviewed: vital signs, nurses notes, lab test result(s), EKG, radiologic studies, cp plain films. 18:15 Data interpreted: alarm security or surveillance monitor: rate is 70 beats/min, rhythm is atrial fibrillation, cp Pulse oximetry: on 2L(s) per nasal canula, is 100 %. Interpretation: normal. Test interpretation: by ED physician or midlevel provider: ECG, plain radiologic studies. Counseling: I had a detailed discussion with the patient and/or guardian regarding: the historical points, exam findings, and any diagnostic results supporting the discharge/admit diagnosis, lab results, radiology results, the need for further work-up and treatment in the hospital. Response to treatment: the patient's symptoms have mildly improved after treatment. 18:25 Physician consultation: A Eliezer REICH was called at 18:25, was contacted at 18:25, regarding admission, to the telemetry unit. patient's condition. 05/24 15:43 Order name: Basic Metabolic Panel; Complete Time: 17:18 cp 05/24 17:19 Interpretation: Normal except: NA 128; CL 93; GLUC 138; BUN 44; CRE 1.41; GFR 49. cp 05/24 15:43 Order name: CBC with Diff; Complete Time: 16:46 cp 05/24 16:47 Interpretation: Normal except: WBC 16.90; HGB 12.2; HCT 38.5; MCV 84.1; MCH 26.6; MCHC cp 31.6; RDW 18.9; MPV 6.5; MARILYN% 88.4; LYM% 3.5; NEUT A 14.9; LYMA 0.6. 05/24 15:43 Order name: LFT's; Complete Time: 17:18 cp 05/24 18:04 Interpretation: Normal except: ALK 128; BILIT 1.3; BILID 0.5; ALB 2.5; GLOB 4.1; A/G cp 0.6. 05/24 15:43 Order name: Magnesium; Complete Time: 17:18 cp 05/24 15:43 Order name: NT PRO-BNP; Complete Time: 17:18 cp 05/24 18:03 Interpretation: NT PRO-BNP 57110; Reviewed. 05/24 15:43 Order name: PT-INR; Complete Time: 16:46 cp 05/24 15:43 Order name: Troponin HS; Complete Time: 17:18 cp 05/24 17:19 Interpretation: Troponin HS 253.1; Reviewed. 05/24 15:43 Order name: XRAY Chest (1 view); Complete Time: 16:46 cp 05/24 18:07 Interpretation: Report review. cp 05/24 18:03 Order name: Urine Microscopic Only cp 05/24 20:01 Order name: SARS-COV-2 RT PCR (Document "Date of Onset" if Symptomatic) ds4 05/24 21:29 Order name: SARS-COV-2 RT PCR EDMS 05/24 15:43 Order name: EKG; Complete Time: 15:44 cp 05/24 15:43 Order name: Cardiac monitoring; Complete Time: 16:33 cp 05/24 15:43 Order name: EKG - Nurse/Tech; Complete Time: 16:30 cp 05/24 15:43 Order name: IV Saline Lock; Complete Time: 16:20 cp 05/24 15:43 Order name: Labs collected and sent; Complete Time: 16:20 cp 05/24 15:43 Order name: O2 Per Protocol; Complete Time: 16:20 cp 05/24 15:43 Order name: O2 Sat Monitoring; Complete Time: 16:21 cp Administered Medications: 17:19 Drug: Albuterol - atroVENT (ipratropium) (3:1) (2.5 mg - 0.5 mg) 3 ml Route: Nebulizer; em6 18:30 Follow up: Response: No adverse reaction em6 17:19 Drug: SOLU-Medrol (methylPrednisoLONE) 125 mg Route: IVP; Site: left antecubital; em6 18:30 Follow up: Response: No adverse reaction em6 17:40 Drug: Lasix (furosemide) 20 mg Route: IVP; Site: right antecubital; jd3 18:30 Follow up: Response: No adverse reaction em6 18:56 Drug: Lasix (furosemide) 20 mg Route: IVP; Site: left antecubital; em6 18:56 Drug: LevaQUIN (levofloxacin) 500 mg Volume: 100 ml; Route: IVPB; Infused Over: 60 em6 mins; Site: left antecubital; Disposition Summary: 05/24/22 18:46 Hospitalization Ordered Hospitalization Status: Inpatient Admission cp Provider: Ralph Martins cp Location: Telemetry/MedSurg (Inpatient) cp Condition: Stable cp Problem: new cp Symptoms: have improved cp Bed/Room Type: Standard cp Room Assignment: 214(05/24/22 22:00) cg Diagnosis - Unspecified combined systolic (congestive) and diastolic (congestive) heart failure cp - Dyspnea cp Forms: - Medication Reconciliation Form cp - SBAR form cp Signatures: Dispatcher [employer] EDKody Fletcher PA PA cp Lindsay Robbins RN RN cg Davies, Jonathon, RN RN jd3 Martinez, Erika, RN RN em6 Sera Hidalgo RN RN kb3 Corrections: (The following items were deleted from the chart) 15:21 15:18 Allergies: Etodolac; kb3 kb3 15:21 15:18 Allergies: telbivudine; kb3 kb3 16:01 15:18 PMHx: Hypertension; kb3 em6 18:03 17:19 Reviewed. cp cp 22:00 18:46 cp cg
[2022-05-24] MEDS ORDERED: Levofloxacin500mg IV 500 MG/100 ML BAG IV ONE (19:07)
[2022-05-24] MEDS: ATORVASTATIN 40 MG TAB PO SCH (23:13)
[2022-05-24] MEDS: APIXABAN 2.5 MG TABLET PO SCH (23:13)
[2022-05-24] MEDS: carvediloL 3.125 MG TAB PO SCH (23:13)
[2022-05-24] MEDS: ALPRAZOLAM 1 MG TABLET PO PRN (23:46)
[2022-05-25] MEDS ORDERED: ONDANSETRON 4 MG/2 ML VIAL IV PRN (00:10)
[2022-05-25 06:41] LABS: Absolute Lymphocytes (CBC) 0.4 K/uL (0.7-4.9); Hematocrit 35.8 % (39.6-49.0); Lymphocytes % 2.6 % (15.3-44.8); MCV 81.9 fL (80-100); MPV 6.4 fL (7.6-11.3); RBC Red Blood Cell Count 4.37 M/uL (4.33-5.43)
[2022-05-25] MEDS: FUROSEMIDE 40 MG/4 ML VIAL IV SCH ×2 (09:03→17:23)
[2022-05-25] MEDS: carvediloL 3.125 MG TAB PO SCH ×2 (09:04→21:09)
[2022-05-25] MEDS: APIXABAN 2.5 MG TABLET PO SCH ×2 (09:04→21:09)
[2022-05-25] MEDS: FINASTERIDE 5 MG TAB PO SCH (09:05)
--- NOTE | 2022-05-25 11:22 | CON ---
Date of Consultation: 05/25/2022 Reason For Consultation: Congestive heart failure. History Of Present Illness: Mr. Hogan is 86, known to me from previous office visits and admissions. He has known atrial fibrillation, hypertension, and dyslipidemia. Came in with congestive heart fa ilure symptoms, elevated BNP more than 10,000. Troponin was 253. Sodium was 128, elevated white cou nt of , creatinine of 1.4, atrial fibrillation, rate 80. Denied any chest pain, nausea or vomiting. Has had PND, orthopnea, pedal edema. No palpitation. No syncope. He also has a history of lung cancer, bladder cancer and skin cancer. Allergies: HE IS ALLERGIC TO TRAMADOL. Review of Systems: Negative. Social History: Negative. Family History: Negative. Medications: At home include , Lipitor, Xanax, Eliquis, and Coreg. He is now also receivi ng inhalers and Lasix. Physical Examination: Vital Signs: Stable, afebrile, atrial fibrillation at 80. HEENT: Negative. Neck: Supple with no bruit. Chest: Reveals rales both bases. Cardiac: Revealed atrial fibrillation. No murmurs, gallops, or rubs. Abdomen: Obese, but benign. Extremities: Revealed 1+ edema. Diagnostic Data: As stated earlier. EKG showed atrial fibrillation. Chest x-ray is pending. Impression And Plan: New onset congestive heart failure, most likely diastolic. Echocardiogram is p ending. I think we should avoid using hydrochlorothiazide with losartan. Continue Eliquis, Coreg, l osartan itself and Lasix. Continue inhalers. Echocardiogram is pending. I think his elevated tropo wilian and BNP secondary to demand ischemia. His creatinine has improved. He has white count. I will discuss the case further with Dr. Martins regarding that. His blood pressure and cholesterol are well c ontrolled. I will continue to follow. ROWDY/BARTOLO Voice ID: [id number] Report ID: [id number]
[2022-05-25] MEDS: ACETAMINOPHEN 500 MG TAB PO PRN (17:21)
[2022-05-25] MEDS: ATORVASTATIN 40 MG TAB PO SCH (21:09)
[2022-05-25] MEDS: ALPRAZOLAM 1 MG TABLET PO PRN (22:28)
[2022-05-26 04:04] LABS: Absolute Lymphocytes (CBC) 0.6 K/uL (0.7-4.9); Hematocrit 35.6 % (39.6-49.0); Lymphocytes % 3.2 % (15.3-44.8); MCV 82.2 fL (80-100); MPV 6.3 fL (7.6-11.3); RBC Red Blood Cell Count 4.33 M/uL (4.33-5.43)
[2022-05-26 04:25] LABS: Potassium 3.9 mmol/L (3.5-5.1)
--- NOTE | 2022-05-26 08:11 | EKG ---
Test Date: 2022-05-24 Test Time: 16:30:13 Hook Puller: CAROLYNE MEASUREMENT RESULTS: Intervals: Rate: 67 IL: QRSD: 146 QT: 418 QTc: 441 [place]: P: IL: QRS: -45 T: 103 INTERPRETIVE STATEMENTS: Atrial fibrillation with a competing junctional pacemaker Right bundle branch block Left anterior fascicular block Bifascicular block Abnormal ECG Compared to ECG 01/26/2022 09:44:21 No significant changes Electronically Signed On 05-26-22 08:06:46 CDT by Baldemar Kohli
[2022-05-26] MEDS: FUROSEMIDE 40 MG/4 ML VIAL IV SCH ×2 (08:29→16:47)
[2022-05-26] MEDS: APIXABAN 2.5 MG TABLET PO SCH ×2 (08:29→21:15)
[2022-05-26] MEDS: carvediloL 3.125 MG TAB PO SCH ×2 (08:30→21:16)
[2022-05-26] MEDS: FINASTERIDE 5 MG TAB PO SCH (08:30)
--- NOTE | 2022-05-26 09:16 | RAD REPORT ---
EXAM DESCRIPTION: RAD - Chest Pa And Lat (2 Views) - 05/26/2022 9:09 am CLINICAL HISTORY: CHF, leukocytosis COMPARISON: Chest Single View dated 05/24/2022; Chest Single View dated 12/30/2021; Chest Single View dated 10/08/2018; Chest Single View dated 04/24/2017; CHEST SINGLE VIEW dated 08/22/2004; Chest For Pe A ngio dated 12/30/2021 FINDINGS: Lines: None. Lungs: Left lung mass is again identified. Pleural: Bilateral pleural effusions. Cardiac: The heart size is within normal limits. Bones: No acute fractures. Remote left-sided rib fractures . Other: IMPRESSION: Small bilateral pleural effusions which could be secondary to underlying edema. Re- demo nstrated left lung mass which could represent neoplasm. The left effusion may be malignant but is sim ilar to 05/24/2022.
[2022-05-26 09:29] LABS: Urine Bilirubin Negative (Negative); Urine Blood 1+ (Negative); Urine Clarity Clear (Clear); Urine Color Yellow (Yellow); Urine Glucose Negative (Negative); Urine Protein 1+ (Negative); Urine Urobilinogen 0.2 mg/dL (0.2-1.0)
[2022-05-26 09:36] LABS: Urine Bacteria None Seen /HPF (<20); Urine Mucus 1+ /HPF (None Seen); Urine RBC <5 /HPF (None Seen)
--- NOTE | 2022-05-26 13:45 | HP ---
Date of Admission: 05/24/2022 Chief Complaint: Cough and shortness of breath. History Of Present Illness: This is an 86-year-old male patient, came into emergency room with increasing problem of cough, coughing up some clear mucus and shortness of breath either with normal day-to-day activity. The patient also having more cough at nighttime. He describes as having some chest tightness associated with this shortness of breath feeling. He came into emergency room yesterday with all these complaints. After he was evaluated, he was admitted to the hospital. This morning when I saw him, his son was present with him at bedside. Allergies: TO ETODOLAC CAUSING RASH AND DILTIAZEM CAUSING RASH. Medications: Atorvastatin 40 mg daily at bedtime, alprazolam 1 mg daily at bedtime, Eliquis 2.5 mg 2 times a day, carvedilol 12.5 mg 2 times a day, finasteride 5 mg daily, Trelegy inhaler 1 puff daily, furosemide 20 mg daily. Review of Systems: Respiratory: As mentioned above. Cardiovascular: Has some leg edema. All other systems reviewed and negative. 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 Past medical history also significant for hypertension, hyperlipidemia, chronic atrial fibrillation, abdominal aortic aneurysm, carotid artery stenosis, gastroesophageal reflux disease, diverticulosis, renal cyst, chronic kidney disease, bladder cancer for which he is getting treatment at [facility], benign prostatic hypertrophy, leg edema, osteoarthritis, insomnia, COPD. Past Surgical History: Significant for cataract surgery, left lung segmentectomy related to lung cancer on December 20, 2019, carotid artery endarterectomy on the right side, abdominal aortic aneurysm surgery with endograft placement in 2015, transurethral resection of bladder tumor February 19, 2022, and inguinal hernia repair and knee surgery in the past. Family History: Father , had [place]. Mother , details unknown, but had heart disease and diabetes. Brother, details unknown. Social History: Prior history of smoking, not at present time. Use of alcohol occasional. Physical Examination: Vital Signs: Temperature 97.7, pulse 74, respiratory rate 16, blood pressure 115/62, oxygen saturation 100%. Height 6 feet 2 inches, weight 190 pounds. General: Awake, alert, oriented, not in distress. HEENT: Head atraumatic, normocephalic. Conjunctivae nonerythematous. Sclerae white. Mouth, no thrush or edema noted. Ears/Nose, no mass, lesion, discharge noted. Neck: Supple. No JVD, lymph nodes, bruit, thyromegaly noted. Lungs: Diminished air entry in the lower 1/3 of both lung schumacher. Not using any accessory muscles of respiration. Heart: Normal heart sounds, no murmur or gallop. Abdomen: Soft, bowel sounds normal. No guarding, rigidity, tenderness, mass, hepatosplenomegaly, distention, or bruit noted. Extremities: Bilateral trace to grade 1 edema. Skin: No rash, ulcer, cellulitis. Lymphatics: No lymph node enlargement in neck, supraclavicular, infraclavicular region. Neuro: No focal neurological deficit. Chest: Unremarkable. External Genitalia: Deferred. Rectal: Deferred. Laboratory Data: Yesterday; white count 16.9, hemoglobin 12.2, platelets 328. Today; white count 14.1, hemoglobin 11.8, platelets 308. Yesterday; sodium 128, potassium 4.5, chloride 93, bicarb 30, BUN 44, creatinine 1.1, glucose 138, total bilirubin 1.3, direct bilirubin 0.5, AST 18, ALT 46, alkaline phosphatase 128. Troponin 253. ProBNP 10,134. This morning, ProBNP 6429, troponin level pending. Sodium 130, potassium 4, chloride 96, bicarb 29, BUN 34, creatinine 1.16, glucose 133. Chest x-ray shows bilateral pleural effusions, slightly larger than seen in December examination, chronic left base pleural change. Rounded mass in the mid left lung field not clearly different from December. Impression: 1. Congestive heart failure. 2. Hyponatremia. 3. Chronic kidney disease, stage 3A. 4. Anemia due to chronic kidney disease. 5. Chronic atrial fibrillation. 6. Type 2 diabetes mellitus with chronic kidney disease. 7. Chronic anticoagulation therapy. 8. Hypothyroidism. 9. Hypertension. 10. Hyperlipidemia. 11. COPD. Plan: Admit the patient to the hospital for further evaluation and management of this problem. The patient is appropriate for inpatient and is expected to spend 2 midnights in the hospital. We will continue home medications per order and we do not have his Trelegy inhaler in the hospital. So in place of that, we will go ahead and use albuterol and Atrovent nebulizer treatment per order. We will continue anticoagulation therapy, continue antihypertensive medications. We will go ahead and give Lasix 40 mg IV every 12 hours, monitor intake and output, electrolytes, renal function, and we will consult Cardiology, repeat troponin level from this morning is pending and 2 different possibilities we need to keep in mind either non-STEMI or demand ischemia causing elevated troponin level. We will consult Cardiology, get echo with Doppler and all these details were discussed with the patient and the patient's son. I will see him tomorrow for followup. NICO/BARTOLO Voice ID: [id number] [email or web address]
--- NOTE | 2022-05-26 14:20 | ECHO ---
HEIGHT: 6 ft 2 in WEIGHT: 188 lb 0 oz DATE OF STUDY: 05/26/[address]: Torey Martins MD 2-DIMENSIONAL: YES M.MODE: YES DOPPLER: YES COLOR FLOW: YES TDS: NO PORTABLE: YES DEFINITY: NO BUBBLE STUDY: NO DIAGNOSIS: CONGESTIVE HEART FAILURE CARDIAC HISTORY: CATHERIZATION: SURGERY: PROSTHETIC VALVE: PACEMAKER: MEASUREMENTS (cm) DIASTOLIC (NORMALS) SYSTOLIC (NORMALS) IVSd 1.3 (0.6-1.2) LA Diam (1.9-4.0) LVEF 59% LVIDd 4.4 (3.5-5.7) LVIDs 3.1 (2.0-3.5) %FS 31% LVPWd 1.1 (0.6-1.2) Ao Diam 4.2 (2.0-3.7) 2 DIMENSIONAL ASSESSMENT: RIGHT ATRIUM: NORMAL LEFT ATRIUM: NORMAL RIGHT VENTRICLE: NORMAL LEFT VENTRICLE: NORMAL TRICUSPID VALVE: MITRAL VALVE: PULMONIC VALVE: NORMAL AORTIC VALVE: CALCIFIED AORTIC VALVE PERICARDIAL EFFUSION: NONE AORTIC ROOT: NORMAL LEFT VENTRICULAR WALL MOTION: NORMAL DOPPLER/COLOR FLOW: SEE BELOW. COMMENTS: NORMAL LEFT VENTRICULAR EJECTION FRACTION 55-60% WITH NORMAL WALL MOTION. MILD MITRAL AND AORTIC REGURGITATION. MODERATE TO SEVERE TRICUSPID REGURGITATION. SEVERE PULMONARY HYPERTENSION WITH RIGHT VENTRICULAR SYSTOLIC PRESSURE > 60 mmHg. TECHNOLOGIST: Tanna GALLEGOS
[2022-05-26] MEDS: ATORVASTATIN 40 MG TAB PO SCH (21:16)
[2022-05-26] MEDS: ACETAMINOPHEN 500 MG TAB PO PRN (21:16)
--- NOTE | 2022-05-26 21:42 | PN ---
Date of Progress Note: 05/26/2022 Subjective: Patient was seen this morning for followup. No new complaints or problems reported by neha santoyo. Lying in bed. Not in any distress. Objective: Vital Signs: Reviewed. HEENT: Unremarkable. Lungs: Clear to auscultation. Heart: Sounds normal. ABDOMEN: Soft. Bowel sounds normal. No guarding, rigidity, tenderness, or distention. Extremities: No leg edema. Laboratory Data: White count 19.1, hemoglobin 11.8, platelets 341. Sodium 134, potassium 3.9, chlor gpoi 97, bicarb 34, BUN 36, creatinine 1.18, glucose 127. Urinalysis which was done today came back n ormal. Impression: 1.Congestive heart failure. 2.Anemia, unspecified. 3.Hypertension. 4.Leukocytosis. Plan: We will go ahead and continue current diuretic therapy. Patient has leukocytosis, but so far there is no definite evidence of any infection anywhere. He does not have any signs or symptoms jose cating any pneumonia. On clinical exam, there is no definite evidence of any infection. We will rep eat blood work tomorrow and I will see him tomorrow for followup. NICO/MODL Voice ID: [id number] Report ID: [id number]
[2022-05-26] MEDS: ALPRAZOLAM 1 MG TABLET PO PRN (22:44)
[2022-05-27 05:53] LABS: Absolute Lymphocytes (CBC) 0.6 K/uL (0.7-4.9); Hematocrit 34.3 % (39.6-49.0); Lymphocytes % 5.8 % (15.3-44.8); MCV 83.9 fL (80-100); MPV 6.3 fL (7.6-11.3); RBC Red Blood Cell Count 4.08 M/uL (4.33-5.43)
[2022-05-27 05:57] LABS: Magnesium 2.1 mg/dL (1.8-2.4); Potassium 3.7 mmol/L (3.5-5.1)
--- NOTE | 2022-05-27 07:05 | PN ---
Date of Progress Note: 05/26/2022 History: Mr. Hogan was admitted with atrial fibrillation, hypertension, dyslipidemia, congestive hea rt failure. Case was discussed with Dr. Martins. Hydrochlorothiazide was held. Echocardiogram, which was done yesterday shows severe pulmonary hypertension with normal ejection fraction and no wall bo on abnormalities. His vital signs were stable. He was in atrial fibrillation at rate of 75, O2 satu ration 98% on room air. Last creatinine is 1.18. He is presently on Eliquis, Lipitor, Lasix, carved ilol, and finasteride. I am not so sure his blood pressure tolerates adding any calcium-channel bloc ker, but I will continue the carvedilol and Lasix and the Eliquis and consider sending him home in next day or 2. I will discuss the case further with Dr. Martins. I will see him in the office as an outpatient soon. ROWDY/BARTOLO Voice ID: [id number] Report ID: [id number]
[2022-05-27] MEDS: ACETAMINOPHEN 500 MG TAB PO PRN (09:01)
[2022-05-27] MEDS: APIXABAN 2.5 MG TABLET PO SCH ×2 (09:02→21:05)
[2022-05-27] MEDS: FINASTERIDE 5 MG TAB PO SCH (09:28)
[2022-05-27] MEDS: FUROSEMIDE 40 MG/4 ML VIAL IV SCH ×2 (09:28→17:24)
[2022-05-27] MEDS: carvediloL 3.125 MG TAB PO SCH ×2 (09:28→21:06)
[2022-05-27] MEDS: ATORVASTATIN 40 MG TAB PO SCH (21:06)
[2022-05-27] MEDS: ALBUTEROL 2.5 MG/3 ML NEB SOL NEB PRN (21:15)
[2022-05-27] MEDS: IPRATROPIUM BROM 0.5MG/2.5ML NEB PRN (21:15)
[2022-05-27] MEDS: ALPRAZOLAM 1 MG TABLET PO PRN (21:51)
[2022-05-28] MEDS: ACETAMINOPHEN 500 MG TAB PO PRN ×2 (03:27→16:50)
[2022-05-28 05:44] VITALS: BMI 23.3
--- NOTE | 2022-05-28 07:55 | PN ---
Date of Progress Note: 05/27/2022 Subjective: The patient was seen this morning for followup. No new complaints or problems reported by the patient. Lying in bed, not in any distress. Objective: Vital Signs: Reviewed. HEENT: Unremarkable. Lungs: Bilateral good equal air entry. No wheezing. No rales. Not in any respiratory distress. Heart: Sounds normal. Abdomen: Soft. Bowel sounds normal. No guarding, rigidity, tenderness, or distention. Extremities: No leg edema. Laboratory Data: Sodium 138, potassium 3.7, chloride 100, bicarb 36, BUN 40, creatinine 1.17, glucos e 110, magnesium 2.1. Impression: 1.Congestive heart failure, chronic, diastolic, with acute exacerbation. 2.Chronic obstructive pulmonary disease. 3.Hypertension. Plan: We will go ahead and continue current medications, continue oxygen and we will see if we can w kimberli off oxygen today or not. Continue IV Lasix. If we are not able to wean off oxygen, we may have to consider home oxygen and details were discussed with the patient. NICO/MODL Voice ID: [id number] Report ID: [id number]
[2022-05-28] MEDS: FUROSEMIDE 40 MG/4 ML VIAL IV SCH ×2 (09:16→16:53)
[2022-05-28] MEDS: FINASTERIDE 5 MG TAB PO SCH (09:16)
[2022-05-28] MEDS: APIXABAN 2.5 MG TABLET PO SCH ×2 (09:17→21:14)
[2022-05-28] MEDS: carvediloL 3.125 MG TAB PO SCH ×2 (09:17→21:15)
[2022-05-28] MEDS: ATORVASTATIN 40 MG TAB PO SCH (21:14)
[2022-05-28] MEDS: ALPRAZOLAM 1 MG TABLET PO PRN (21:15)
[2022-05-28] MEDS: IPRATROPIUM BROM 0.5MG/2.5ML NEB PRN (22:50)
[2022-05-29] MEDS: ACETAMINOPHEN 500 MG TAB PO PRN (06:58)
--- NOTE | 2022-05-29 08:47 | PN ---
Date of Progress Note: 05/28/2022 Subjective: The patient was seen this morning for followup. No new complaints or problems reported by the patient. He was lying in bed, not in distress. Remains on oxygen 2-3 L/minute nasal cannula. Objective: Vital Signs: Reviewed. HEENT: Unremarkable. Lungs: Clear to auscultation. Heart: Sounds normal. Abdomen: Soft. Bowel sounds normal. No guarding, rigidity, tenderness, or distention. Extremities: No leg edema. Impression: 1.Congestive heart failure. 2.Chronic obstructive pulmonary disease. 3.Hypertension. Plan: We will go ahead and continue current diuretic therapy. Social Service was consulted to help make arrangements for home oxygen and possible discharge to go home tomorrow once it is all arranged. Details and plan of treatment discussed with the patient. I will see him tomorrow for followup. NICO/MODL Voice ID: [id number] Report ID: [id number]
[2022-05-29] MEDS: FINASTERIDE 5 MG TAB PO SCH (08:59)
[2022-05-29] MEDS: carvediloL 3.125 MG TAB PO SCH ×2 (08:59→20:56)
[2022-05-29] MEDS: APIXABAN 2.5 MG TABLET PO SCH ×2 (08:59→20:55)
[2022-05-29] MEDS: FUROSEMIDE 40 MG/4 ML VIAL IV SCH ×2 (09:01→18:16)
[2022-05-29] MEDS: ATORVASTATIN 40 MG TAB PO SCH (20:55)
[2022-05-29] MEDS: ALBUTEROL 2.5 MG/3 ML NEB SOL NEB PRN (22:08)
[2022-05-29] MEDS: IPRATROPIUM BROM 0.5MG/2.5ML NEB PRN (22:08)
[2022-05-29] MEDS: ALPRAZOLAM 1 MG TABLET PO PRN (22:31)
--- NOTE | 2022-05-30 01:50 | PN ---
Date of Progress Note: 05/29/2022 Subjective: The patient was seen this morning for followup. No new complaints or problems reported by patient. He was lying in bed, not in distress. Remains on oxygen 2 to 3 L/minute per nasal cannu la. Objective: Vital Signs: Reviewed. HEENT: Examination unremarkable. Lungs: Clear to auscultation. Heart: Sounds normal. Abdomen: Soft, bowel sounds normal. No guarding, rigidity, tenderness, or distention. Extremities: No leg edema. Impression: 1.Chronic obstructive pulmonary disease. 2.Chronic diastolic heart failure, with acute exacerbation. 3.Hypertension. 4.Lung cancer. Plan: We will go ahead and continue current medication. Social Service is arranging for home oxygen . Our plan originally was to discharge the patient to go home, but he does not have oxygen concentra tor delivered yet, which will be delivered tomorrow. The patient does not feel comfortable going reggie e today as he reported that he is feeling weak, and does not feel like he wants to arrange ments gets completed tomorrow. We will plan to discharge him to go home with oxygen and I did call t he patient's son and discussed all the details with him. The patient has Trelegy inhaler that he use s at home, and he was encouraged to continue to use it. NICO/MODL Voice ID: [id number] Report ID: [id number]
[2022-05-30 04:39] LABS: Magnesium 2.1 mg/dL (1.8-2.4); Potassium 3.7 mmol/L (3.5-5.1)
[2022-05-30] MEDS: carvediloL 3.125 MG TAB PO SCH ×2 (08:51→21:54)
[2022-05-30] MEDS: ACETAMINOPHEN 500 MG TAB PO PRN (08:51)
[2022-05-30] MEDS: APIXABAN 2.5 MG TABLET PO SCH ×2 (08:51→21:53)
[2022-05-30] MEDS: FINASTERIDE 5 MG TAB PO SCH (08:52)
[2022-05-30] MEDS ORDERED: FUROSEMIDE 40 MG TABLET PO SCH (09:00)
[2022-05-30] MEDS ORDERED: BISACODYL 10 MG RECTAL SUPP PR ONE (10:08)
[2022-05-30] MEDS ORDERED: MAGNESIUM HYDROXIDE 8% 30 ML PO ONE (10:09)
--- NOTE | 2022-05-30 11:59 | PN ---
Date of Progress Note: 05/30/2022 Subjective: The patient was seen this morning for followup. He was complaining feeling weak and tir ed, and also reported that he has not had a bowel movement since he came into the hospital. Objective: Vital Signs: Reviewed. HEENT: Examination unremarkable. Lungs: Bilateral good equal air entry. Clear to auscultation. No wheezing. No rales. Heart: Sounds normal. Abdomen: Soft. Bowel sounds normal. No guarding, rigidity, tenderness, distention. Extremities: No leg edema. Laboratory Data: Sodium 140, potassium 3.7, chloride 97, bicarb 42, BUN 34, creatinine 1.07, glucose 138, magnesium 2.1. Impression: 1.Congestive heart failure, chronic, diastolic, with acute exacerbation. 2.Chronic obstructive pulmonary disease. 3.Generalized weakness. 4.Debility. 5.Constipation. 6.Hypertension. 7.Metabolic alkalosis, secondary to diuretic medication. Plan: We will go ahead and hold Lasix today. As of yesterday, we stopped IV Lasix. He had last dos e of IV Lasix yesterday morning, and he did not get any Lasix yesterday evening, and today, he was cyr pposed to start oral Lasix and I have kept it on hold in view of this morning's blood work and we michael l probably restart it tomorrow. Meanwhile for constipation, we will give him Dulcolax rectal supposi tory and milk of magnesia. We will get a chest x-ray done today, and the patient already has his por table oxygen delivered which is with him in his room and this is for home use, and oxygen concentrato r will be delivered when he goes home. The patient will be going home to his daughter's house to sta rt with and I have informed him that his generalized weakness and debility will take some time and ph ysical therapy in order for him to improve but it will not just get better overnight, and it will be best for him not to stay in the hospital just for the weakness and debility part to avoid any complic ations from prolonged hospitalization and all these details were discussed with him. Once he has a b owel movement, he is willing to go home and I have also requested him to consider home health and reggie e physical therapy, which he is willing to do so and order was placed for Social Service to assist wi th that. I also discussed with him regarding advance directives and as per his decision, DNR order w as written in the chart, as he does not want any CPR defibrillation or ventilator support in the even t of cardiopulmonary arrest. NICO/MODL Voice ID: [id number] Report ID: [id number]
--- NOTE | 2022-05-30 14:16 | RAD REPORT ---
EXAM DESCRIPTION: Natasha Single View05/30/2022 11:00 am CLINICAL HISTORY: Shortness of breath COMPARISON: May 26, 2022 FINDINGS: Small to moderate right and small left pleural effusions are present with bibasilar atelec tasis Left lower lobe mass unchanged. Callus formation is present about. Mid posterior left rib fracture. Mild bilateral interstitial lung opacities may indicate mild interstitial pulmonary edema. Heart remains enlarged
[2022-05-30] MEDS: ATORVASTATIN 40 MG TAB PO SCH (21:53)
[2022-05-30] MEDS: ALPRAZOLAM 1 MG TABLET PO PRN (21:55)
[2022-05-31] MEDS: ACETAMINOPHEN 500 MG TAB PO PRN ×2 (04:26→18:07)
[2022-05-31] MEDS: carvediloL 3.125 MG TAB PO SCH ×2 (10:23→21:39)
[2022-05-31] MEDS: FINASTERIDE 5 MG TAB PO SCH (10:23)
[2022-05-31] MEDS: APIXABAN 2.5 MG TABLET PO SCH (10:23)
[2022-05-31] MEDS ORDERED: BISACODYL 10 MG RECTAL SUPP PR ONE (11:40)
[2022-05-31] MEDS ORDERED: MAGNESIUM HYDROXIDE 8% 30 ML PO ONE (11:40)
[2022-05-31 11:49] LABS: Absolute Lymphocytes (CBC) 0.5 K/uL (0.7-4.9); Hematocrit 35.2 % (39.6-49.0); Lymphocytes % 5.2 % (15.3-44.8); MCV 84.5 fL (80-100); MPV 6.2 fL (7.6-11.3); RBC Red Blood Cell Count 4.16 M/uL (4.33-5.43)
[2022-05-31 12:15] LABS: Albumin 2.2 g/dL (3.4-5.0); Bilirubin Total 1.1 mg/dL (0.2-1.0); Magnesium 2.5 mg/dL (1.8-2.4); Potassium 3.7 mmol/L (3.5-5.1)
[2022-05-31] MEDS: PARoxetine HCL 10 MG TAB PO SCH (12:44)
--- NOTE | 2022-05-31 13:03 | PN ---
Date of Progress Note: 05/31/2022 Subjective: The patient was seen this morning for followup. He did not feel good at all. In fact, he looked a lot worse today than yesterday. Appears very weak and tired compared to yesterday. Anish es any other specific complaints except significant weakness. Other thing he reported that as of t night, his urine color has changed and now what he has is gross hematuria. Denies any abdominal pa in, nausea, vomiting. His appetite is poor. He did have small amount of bowel movement which was rick rd after Dulcolax suppository and milk of magnesia yesterday and still feels like he is constipated. He remains on oxygen per nasal cannula. His daughter was present with him today at bedside. Objective: Vital Signs: Reviewed. HEENT: Examination unremarkable. Lungs: Bilateral good equal air entry. Clear to auscultation. No rhonchi. No rales. Diminished b reath sounds in the lower lung region. Heart: Sounds normal. Abdomen: Soft. Bowel sounds normal. No guarding, rigidity, tenderness, distention. Extremities: No leg edema. Laboratory Data: CBC and chemistry results pending. CT scan of the chest was ordered, result pendin g. Urinalysis, urine culture ordered also today. Result pending. Impression: 1.Chronic obstructive pulmonary disease. 2.Congestive heart failure, chronic, systolic, with acute exacerbation. 3.Metabolic alkalosis. 4.Gross hematuria. 5.Lung cancer. 6.Bladder cancer. 7.Chronic anticoagulation therapy. 8.Generalized weakness. Plan: We will go ahead and get an ultrasound of appendix as well as urinalysis, blood work, CAT scan of the chest, and I will communicate details with the patient's daughter. She was at bedside, visit ed him. We will not be discharging him to go home today. He will continue to use his oxygen. Last time, he received IV Lasix was almost 48 hours ago, which is day before yesterday in the morning, aft er that he has not received any IV Lasix or oral Lasix. He also seems to have significant problem wi th anxiety and depression, and we will start him on paroxetine 10 mg daily and continue alprazolam at bedtime to help him with insomnia and anxiety also. NICO/MODL Voice ID: [id number] Report ID: [id number]
[2022-05-31] MEDS ORDERED: acetaZOLAMIDE 250 MG TAB PO ONE (13:30)
--- NOTE | 2022-05-31 14:55 | RAD REPORT ---
EXAM DESCRIPTION: CT - Thorax Wo Con - 05/31/2022 1:36 pm CLINICAL HISTORY: COPD, CHF, lung cancer COMPARISON: Chest For Pe Angio dated 12/30/2021; Chest Angio dated 10/08/2018 FINDINGS: Chest Wall: No suspicious thyroid nodules or pathologic lymphadenopathy. Lungs: Left lower lobe lung mass has increased in size measuring 4.2 cm, previously 3.5 cm. Pleura: Moderate to large right pleural effusion. Tiny left pleural effusion which is likely chronic. Mediastinum/estrellita: No pathologic lymphadenopathy. Pulmonary arteries/Aorta: Limited evaluation without contrast. No aortic aneurysm. Heart: No significant pericardial effusion. Cardiomegaly. Multi-vessel coronary artery disease. Aorti c valve calcifications. Upper abdomen: Likely bilateral renal cysts. Cholelithiasis. Bones: No acute abnormality. Ventral osteophytes in the spine All CT scans are performed using dose optimization technique as appropriate and may include automated exposure control or mA/KV adjustment according to patient size. IMPRESSION: Moderate to large right pleural effusion. Enlarging left lower lobe lung mass likely ref lecting neoplasm.
[2022-05-31 16:30] LABS: Specific Gravity >= 1.030 (1.005-1.030); Urine Bilirubin Negative (Negative); Urine Blood 3+ (Negative); Urine Clarity Turbid (Clear); Urine Color Yellow (Yellow); Urine Glucose Negative (Negative); Urine Protein 3+ (Negative)
[2022-05-31 17:49] LABS: Urine Bacteria <20 /HPF (<20); Urine RBC >50 /HPF (None Seen)
[2022-05-31] MEDS ORDERED: NACHLORIDE 0.45% 1,000 ML IV SCH (18:00)
[2022-05-31] MEDS: ALBUTEROL 2.5 MG/3 ML NEB SOL NEB PRN (20:15)
[2022-05-31] MEDS: IPRATROPIUM BROM 0.5MG/2.5ML NEB PRN (20:15)
[2022-05-31] MEDS: ALPRAZOLAM 1 MG TABLET PO PRN (21:39)
[2022-05-31] MEDS: ATORVASTATIN 40 MG TAB PO SCH (21:39)
[2022-06-01] MEDS ORDERED: NA CHLORIDE 0.9% 1,000 ML IV SCH (00:05)
[2022-06-01] MEDS ORDERED: NA CHLORIDE 0.9% 500 ML IV ONE (00:05)
[2022-06-01] MEDS ORDERED: NA CHLORIDE 0.9% 500 ML ONE (00:21)
[2022-06-01] MEDS ORDERED: NA CHLORIDE 0.9% 1,000 ML ONE (00:26)
[2022-06-01 06:48] LABS: Potassium 4.2 mmol/L (3.5-5.1)
[2022-06-01] MEDS: carvediloL 3.125 MG TAB PO SCH ×2 (09:00→22:16)
[2022-06-01] MEDS: FINASTERIDE 5 MG TAB PO SCH (10:06)
[2022-06-01] MEDS: PARoxetine HCL 10 MG TAB PO SCH (10:06)
[2022-06-01] MEDS ORDERED: NA CHLORIDE 0.9% 250 ML IV ONE (10:30)
[2022-06-01 11:52] LABS: Arterial Blood Carboxyhemoglob 1.7 % (0-1.5); Blood Gas Oxyhemoglobin 69.1 % (94-97); Blood O2 Saturation 71.1 % (92-98.5)
[2022-06-01] MEDS ORDERED: METHYLPREDNISOLONE 125 MG INJ IV SCH (12:00)
--- NOTE | 2022-06-01 12:09 | P.CNS ---
Date of Consult: 06/01/22 Reason for Consult: Respiratory failure Chief Complaint: Respiratory distress History of Present Illness: Patient is 86 years of age was admitted to the hospital with worsening cough congestion shortness of breath is very alert responsive cooperative minimal distress condition deteriorated developed bilateral pleural effusions been receiving immunotherapy at [facility] not sure what the name is his last dose was about a week ago is also being treated for bladder cancer history of presumed COPD is on bronchodilators supposed to be discharged on oxygen got worse Allergies etodolac [Etodolac] Allergy (Intermediate, Verified 02/11/16 13:07) Itching/Hives/Rash telbivudine [From Tyzeka] Allergy (Intermediate, Verified 02/11/16 13:07) Itching/Hives/Rash tramadol Allergy (Verified 05/26/22 12:35) Hives/Rash etodolac Allergy (Uncoded 02/11/16 13:07) Unknown Home Medications: Atorvastatin Calcium [Lipitor*] 40 mg PO BEDTIME 05/29/13 carvediloL [Coreg*] 12.5 mg PO BID 05/23/15 Alprazolam [Xanax] 1 mg PO BEDTIME 01/26/22 Apixaban [Eliquis] 5 mg PO BID 01/26/22 Finasteride 5 mg PO DAILY 01/26/22 Fluticasone [Flonase 50mcg Nasal [place]] 2 sprays NS DAILY 01/26/22 Fluticasone/Umeclidin/Vilanter [Trelegy Ellipta 100-62.5-25] 1 each IH DAILY 01/26/22 Furosemide 20 mg PO DAILY 01/26/22 Acetaminophen [Tylenol Extra Strength] 2 tab PO DAILY 05/25/22 Losartan Potassium 100 mg PO DAILY 05/25/22 - Past Medical/Surgical History Diabetic: No -: Hypertension -: High cholesterol -: Cellulitis -: Skin Cancer-face, back -: Venous Insufficiency -: Bladder cancer -: bilateral knee replacement -: hernia repair -: removal of skin cancer left cheek/face -: hernia repair -: bilateral carotid sx - Family History Father Medical History: Heart disease Mother Medical History: Heart disease - Social History Smoking Status: Former smoker Alcohol use: Yes CD- Drugs: No Caffeine use: Yes Place of Residence: Home Review of Systems 10-point ROS is otherwise unremarkable General: Weakness Respiratory: Shortness of Breath Physical Examination Temp Pulse Resp BP Pulse Ox 97.7 F 70 14 82/43 L 95 06/01/22 08:00 06/01/22 09:00 06/01/22 08:00 06/01/22 09:00 06/01/22 08:00 General: Alert, Moderate distress Respiratory: Crackles/rales, Expiratory wheezes Cardiovascular: No edema, Regular rate/rhythm Gastrointestinal: Normal bowel sounds, Soft and benign Musculoskeletal: No clubbing, No swelling - Problems (1) Respiratory failure Current Visit: Yes Status: Acute Plan: Patient is 86 years of age developed respiratory distress he has been treated for metastatic lung cancer with immunotherapy last dose about a week ago he is now developed bilateral pleural effusion he has underlying COPD is on bronchodilators at home former smoker been treated for bladder cancer that has been all been done at [facility] his blood gases show significant hypoxemia with hypercapnia and respiratory acidosis patient was also diuresed he is got known abnormal renal function elevated bicarbonate CT scan shows bilateral pleural effusions right greater than left he also has a left upper lobe lung mass recommend treatment with scheduled bronchodilators stable side effect of immune modulator treatment trial of high doses of steroid agree with Diamox IV fluids BiPAP also has normal mildly hypercalcemic White count is normal medications reviewed Qualifiers: Chronicity: acute on chronic
[2022-06-01] MEDS: NACHLORIDE 0.45% 1,000 ML IV SCH ×2 (12:52→23:49)
--- NOTE | 2022-06-01 14:55 | PN ---
Date of Progress Note: 06/01/2022 Subjective: The patient was seen this morning for followup. No new complaints or problems reported by him except reported that he was not feeling good at all, felt very weak and tired. Last night, hi s blood pressure into range of systolic blood pressure 80 or so, was hypoxic and required 100% non-rebreather oxygen. This morning when I saw him; he was lying in bed, appearing very weak, w orse compared to yesterday. He was still awake, alert, oriented, talking to me, answering all the __ accessory muscles of respiration. Physical Examination: HEENT: Unremarkable. Lungs: Clear to auscultation. Diminished air entry in the lower part of the right lung. Heart: Sounds normal. Abdomen: Soft. Bowel sounds normal. No guarding, rigidity, tenderness, or distention. Extremities: No leg edema. Laboratory Data: Sodium 138, potassium 4.2, chloride 96, bicarb 41, BUN 41, creatinine 1.06, glucose 127. His yesterday's CAT scan of the chest reviewed showing [id number] right-sided pleural e ffusion and approximately 4.2 cm left lung mass which was 3.5 cm on the previous CAT scan. Impression: 1.Acute respiratory failure with hypoxia. 2.Chronic obstructive pulmonary disease. 3.Chronic diastolic heart failure. 4.Lung cancer, left side. 5.Right-sided pleural effusion. 6.Bladder cancer. 7.Gross hematuria. Plan: We will go ahead and continue current medication, continue IV fluid resuscitation per order. Another bolus of IV fluid was ordered today. We will continue half-normal saline at 75 cc/hour. Isauro dder scan showed only about 138 cc of urine and will not require any Dan catheter placement at this time. The patient was requesting Dan catheter, but I informed him that due to possible complicati on, we should avoid Dan catheter as long as it is possible. Pulmonary consultation was requested f aneesh Cook and he did evaluate the patient. I did discuss all the details with Dr. Cook be fore his evaluation and after he evaluated the patient, and he is concerned about possibility of lung damage from immunotherapy that the patient recently had and he started taking on high-dose steroid. The patient was asking me if it is time for him to go on hospice care. This morning when I saw him, I informed him that not at this time and if things do change, then obviously we will bring up discus xavier regarding hospice care with him. I did call and talk to the patient's daughter this afternoon a nd provided all the details. NICO/MODL Voice ID: [id number] Report ID: [id number]
[2022-06-01] MEDS: ALBUTEROL 2.5 MG/3 ML NEB SOL NEB SCH ×2 (15:26→19:40)
[2022-06-01] MEDS: METHYLPREDNISOLONE 40 MG INJ IV SCH ×2 (19:40→23:45)
[2022-06-01] MEDS ORDERED: APIXABAN 5 MG TABLET PO SCH (21:00)
[2022-06-01] MEDS: ALPRAZOLAM 1 MG TABLET PO PRN (22:16)
[2022-06-01] MEDS: ATORVASTATIN 40 MG TAB PO SCH (22:16)
[2022-06-02] MEDS: ALBUTEROL 2.5 MG/3 ML NEB SOL NEB SCH ×4 (01:00→19:50)
[2022-06-02 05:58] LABS: Magnesium 2.3 mg/dL (1.8-2.4); Potassium 4.4 mmol/L (3.5-5.1)
[2022-06-02] MEDS: METHYLPREDNISOLONE 40 MG INJ IV SCH ×2 (06:41→11:26)
--- NOTE | 2022-06-02 07:43 | RAD REPORT ---
EXAM DESCRIPTION: RAD - Chest Single View - 06/02/2022 6:54 am CLINICAL HISTORY: Respiratory failure COMPARISON: Chest Single View dated 05/30/2022; Chest Pa And Lat (2 Views) dated 05/26/2022; Chest Sin gle View dated 05/24/2022; Chest Single View dated 12/30/2021; Thorax Wo Con dated 05/31/2022 FINDINGS: Lines: None. Lungs: Known left lung mass. Atelectasis as a result of the effusions. Pleural: Enlarging pleural effusion on the right which is moderate to large. Small left effusion is s imilar. Cardiac: The heart size is within normal limits. Bones: No acute fractures. Other: IMPRESSION: Enlarging right pleural effusion which is moderate to large. Left pleural effusion is sm all. Known lung mass in the left lung.
[2022-06-02] MEDS: PARoxetine HCL 10 MG TAB PO SCH (08:53)
[2022-06-02] MEDS: FINASTERIDE 5 MG TAB PO SCH (08:53)
[2022-06-02] MEDS: carvediloL 3.125 MG TAB PO SCH ×2 (08:54→21:00)
--- NOTE | 2022-06-02 11:51 | P.PN ---
Subjective Date of Service: 06/02/22 Chief Complaint: Respiratory distress Subjective: Improving (Patient feels better however chest x-ray looks worse) Review of Systems General: Weakness Respiratory: Shortness of Breath Physical Examination - Vital Signs Temperature: 97.2 F Blood Pressure: 168/79 Pulse: 84 Respirations: 16 Pulse Ox (%): 94 - Physical Exam General: Alert, Mild distress Respiratory: Diminished (Right side) Cardiovascular: No edema, Irregular heart rate/rhythm Gastrointestinal: Normal bowel sounds Assessment And Plan - Current Problems (Diagnosis) (1) Respiratory failure Current Visit: Yes Status: Acute Plan: Respiratory failure worsening right-sided pleural effusion ordered bilateral decubitus chest x-ray titrate sat to 90% we will repeat ABGs not able to go down for thoracentesis we will plan for a small bore chest tube currently on her percent FiO2 PT/INR is also elevated patient was on Eliquis that was discontinued yesterday is also on Solu-Medrol dose decreased echocardiogram shows severe pulmonary hypertension Qualifiers: Chronicity: acute on chronic
--- NOTE | 2022-06-02 15:24 | RAD REPORT ---
EXAM DESCRIPTION: RAD - Chest Lateral Decubitus - 06/02/2022 3:15 pm CLINICAL HISTORY: Pleurally fusions COMPARISON: Portable 06/02/2022, CT chest 05/31/2022 TECHNIQUE: Right and left lateral decubitus films were obtained. FINDINGS: Left-side down images show continued costophrenic angle blunting with no layering of left pleural fluid. [id number]-[id number] imaging shows layering of the large right-sided pleural effusion. No measurable locul ation component. IMPRESSION: Large layering right pleural effusion. No layering of pleural fluid on the left.
[2022-06-02] MEDS: NACHLORIDE 0.45% 1,000 ML IV SCH (16:20)
[2022-06-02] MEDS: METHYLPREDNISOLONE 125 MG INJ IV SCH (16:22)
[2022-06-02] MEDS ORDERED: FUROSEMIDE 20 MG/ 2ML VIAL IV ONE (17:00)
[2022-06-02] MEDS ORDERED: NACHLORIDE 0.45% 1,000 ML IV SCH (18:00)
[2022-06-02 19:05] LABS: Arterial Blood Carboxyhemoglob 1.2 % (0-1.5); Blood O2 Saturation 94.1 % (92-98.5)
[2022-06-02 19:13] LABS: Arterial Blood Carboxyhemoglob 1.5 % (0-1.5); Blood Gas Oxyhemoglobin 75.5 % (94-97); Blood O2 Saturation 77.5 % (92-98.5)
[2022-06-02] MEDS: ATORVASTATIN 40 MG TAB PO SCH (21:00)
[2022-06-03] MEDS: METHYLPREDNISOLONE 125 MG INJ IV SCH ×3 (01:00→09:00)
[2022-06-03] MEDS: ALBUTEROL 2.5 MG/3 ML NEB SOL NEB SCH ×2 (01:15→07:38)
--- NOTE | 2022-06-03 07:14 | PN ---
Date of Progress Note: 06/02/2022 Subjective: Patient was seen this morning for followup. He was lying in bed, appears weaker than no rmal, but definitely better than yesterday. Denies any other specific complaints, except for tiredne ss and generalized weakness. Objective: Vital Signs: Reviewed. HEENT: Unremarkable. Lungs: Bilateral good equal air entry. Diminished air entry in the right lung region. Not using an y accessory muscles of respiration at rest. Heart: Sounds normal. Abdomen: Soft. Bowel sounds normal. No guarding, rigidity, tenderness, or distention. Extremities: No leg edema. Laboratory Data: Sodium 138, potassium 4.4, chloride 96, BUN 37, creatinine 1.10, glucose 163, magne sium 2.3. Hospital Course: After I saw the patient, he had relatively uneventful day. Actually he felt better today than yesterday. Also as reported by Dr. Cook as per my discussion with him, but later thi s afternoon early evening hours, his condition deteriorated and that started after he had gone down f or chest x-ray and repeat chest x-ray today has shown worsening of the right-sided pleural effusion a nd Dr. Cook discussed with me recommended about placement of chest tube, but after he came up fro Radiology Department, his condition started to deteriorate and he was extremely sleepy. Nurses had difficulty waking him up and BiPAP was placed to help with his breathing at that time when nurses co ntacted me and after he was on BiPAP for a while, we did get an ABG and his ABG showed pH 7.05, pCO2 was 155, pO2 97, oxygen saturation 94%. Impression: 1.Acute respiratory failure with hypercapnia. 2.Chronic obstructive pulmonary disease. 3.Lung cancer. 4.Pleural effusion. 5.Bladder cancer. 6.Volume depletion. Plan: We will go ahead and continue current IV fluid, continue BiPAP for supportive care at this poi nt. I did call the patient's daughter and 2 to 3 times I have communicated with her and explained he r about very poor prognosis and also discussed with family that there is very likely possibility that the patient will not survive this hospitalization and we will continue current supportive care. The patient's code status is do not resuscitate. I will see him tomorrow for followup. NICO/MODL Voice ID: [id number] Report ID: [id number]
--- NOTE | 2022-06-03 07:33 | RAD REPORT ---
EXAM DESCRIPTION: Natasha Single View06/03/2022 6:01 am CLINICAL HISTORY: Respiratory failure COMPARISON: June 02, 2022 FINDINGS: No significant change in the bilateral pleural effusions right greater than left No change in left lung mass Heart remains enlarged
[2022-06-03] MEDS: PARoxetine HCL 10 MG TAB PO SCH (09:00)
[2022-06-03] MEDS: carvediloL 3.125 MG TAB PO SCH (09:00)
[2022-06-03] MEDS: FINASTERIDE 5 MG TAB PO SCH (09:00)
[2022-06-03 09:11] VITALS: BP 133/71; TEMP 97.7
[2022-06-03 10:04] VITALS: O2SAT 96
[2022-06-03] MEDS ORDERED: MORPHINE 2 MG/ML SYR IV PRN (10:40)
[2022-06-03] MEDS ORDERED: LORazepam 2 MG/ML VIAL IV ONE (11:26)
--- NOTE | 2022-06-03 20:20 | DS ---
Date of Discharge: 06/03/2022 Disposition: Patient was discharged from acute medical floor to undergo inpatient hospice care today . Physical Examination: HEENT: Unremarkable. Lungs: Bilateral shallow air entry with diminished air entry in the lower part of the right lung. Heart: Sounds normal. Abdomen: Soft. Bowel sounds normal. No guarding, rigidity, tenderness, or distention. Extremities : No leg edema. Laboratory Data: Upon admission on 05/24/2022, white count 16.9, hemoglobin 12.2, platelets 328 and last CBC from 05/31/2022, white count 9.8, hemoglobin 11.4, platelets 262. Last chemistry from yeste rday 06/02/2022, sodium 138, potassium 4.4, chloride 95, bicarb 41, BUN 37, creatinine 1.1, glucose 1 63. Upon admission, sodium 128, potassium 4.5, chloride 93, bicarb 30, BUN 44, creatinine 1.41, gluc ose 138. Troponin 253 on the first set, second set 101.7. ProBNP was 10,134 upon admission and last proBNP 5197 on 05/26/2022. His echocardiogram showed ejection fraction of 59%. Echocardiogram done on 05/24/2022 shows ejection fraction of 59%, mild mitral and aortic regurgitation, moderate to ileana re tricuspid regurgitation, severe pulmonary hypertension. Initial chest x-ray showed bilateral pleu ral effusion present, slightly larger than seen in December examination and chronic left base pleural ch anges. CAT scan of the chest from 05/31/2022 showed moderate to large right pleural effusion, enlarg ing left lower lobe lung mass, which is 4.2 cm now in size and previously it was 3.5 cm size in December of this year. Last chest x-ray from today shows bilateral pleural effusion more on the right side t saha the left side and it is moderate to large right-sided pleural effusion. Arterial blood gas yeste rday, pH 7.05, pCO2 of 155, pO2 of 97, oxygen saturation 92% on 60% FiO2. Hospital Course: This is an 86-year-old very pleasant male patient, admitted to the hospital after h e came into emergency room with cough and shortness of breath. Please see dictated H and P for more information. The patient was evaluated in the ER, admitted to the hospital with congestive heart michela lure and hyponatremia problem. He was started on IV Lasix and overall, his condition had improved ov er a period of time. He did have hypoxia requiring need for home oxygen therapy and Social Service w as consulted to help make arrangements for that. While we were waiting on that, his condition then s tarted to deteriorate where he was having increasing weakness and vague complaint of just not feeling good. Over the weekend, his condition continued to deteriorate. Pulmonary consultation was request ed from Dr. Cook and the patient started to have retention of carbon dioxide and over the weekend , blood gas had shown pCO2 was 75 with pH 7.34, pO2 of 40, and oxygen saturation was 71%. This was o n 45% FiO2. IV steroid was started. His diuretic therapy was discontinued as we started to notice t hat the patient was also having metabolic alkalosis and IV fluid half-normal saline was given which a ctually has shown improvement in his bicarb level. The highest bicarb level during this hospitalizat ion was 45 and after IV fluid half-normal saline, it came down to 41 and remained at 41. Subsequentl y, he had episodes of hypotension, also requiring a bolus of normal saline and once we started him on IV steroid for short time, his breathing seemed to improve, but then he started deteriorating again as of yesterday. The patient went into acute respiratory failure with significant CO2 retention with CO2 of 155 on the blood gas and he was placed on BiPAP. After using BiPAP overnight yesterday, his condition did improve to the extent this morning. He was able to communicate and he was very clear i n his thought processes. Two daughters were present with him at bedside and the patient requested Bi PAP to be discontinued as he did not want to use it anymore and during this hospitalization couple of times, he had expressed his desire to me that where he can go to sleep and not wake up. I did discu ss with him about advanced directives and DNR order was written in the chart per patient's decision. After patient informed me this morning that he no longer wanted to use BiPAP machine, we discontinue d BiPAP, placed him on high-flow nasal cannula oxygen and we talked about hospice care whether to use hospice care in the hospital or at home and I recommended that we start with inpatient hospice and p atient was agreeable to do so and both daughters were also in agreement with that so I did reach out to [facility] hospice medical collector, Dr. Britton, and nursing order was placed to initiate the hospice cons ult and Dr. Britton, did evaluate the patient this morning and the patient was discharged from the [facility] to inpatient hospice care. Within 3 to 4 hours after we initiated all this process this morning, the patient today. Final Diagnoses: 1.Acute respiratory failure with hypercapnia. 2.Acute exacerbation of chronic obstructive pulmonary disease. 3.Chronic diastolic heart failure, with acute exacerbation. 4.Hyponatremia. 5.Chronic kidney disease, stage IIIA. 6.Anemia due to chronic kidney disease. 7.Chronic atrial fibrillation. 8.Type 2 diabetes mellitus with chronic kidney disease. 9.Chronic anticoagulation therapy. 10.Hypothyroidism. 11.Hypertension. 12.Hyperlipidemia. NICO/MODL Voice ID: [id number] Report ID: [id number]
== END 2022-06-03 11:42 | disposition hospice, inpatient (51) | DRG 291 ==
LOC: ER 15:02 → ERHOLD 18:17 → 2ND 22:40 → 4TH 05-26 13:21
PROVIDERS: ADMIT Internal Medicine; ATTEND Internal Medicine
DX: I13.0 Hypertensive heart and chronic kidney disease with heart failure and stage 1 through stage 4 chronic kidney disease, or unspecified chronic kidney disease (principal); I50.33 Acute on chronic diastolic (congestive) heart failure; J96.02 Acute respiratory failure with hypercapnia; J96.01 Acute respiratory failure with hypoxia; E87.1 Hypo-osmolality and hyponatremia; I48.20 Chronic atrial fibrillation, unspecified; J44.1 Chronic obstructive pulmonary disease with (acute) exacerbation; C34.90 Malignant neoplasm of unspecified part of unspecified bronchus or lung; E87.3 Alkalosis; I24.8 Other forms of acute ischemic heart disease; N18.31 Chronic kidney disease, stage 3a; E11.22 Type 2 diabetes mellitus with diabetic chronic kidney disease; D63.1 Anemia in chronic kidney disease; Z79.01 Long term (current) use of anticoagulants; E03.9 Hypothyroidism, unspecified; E78.5 Hyperlipidemia, unspecified; D72.829 Elevated white blood cell count, unspecified; R53.81 Other malaise; K59.00 Constipation, unspecified; R31.0 Gross hematuria; C67.9 Malignant neoplasm of bladder, unspecified; E86.9 Volume depletion, unspecified; Z66 Do not resuscitate; Z96.653 Presence of artificial knee joint, bilateral; Z87.891 Personal history of nicotine dependence; Z20.822 Contact with and (suspected) exposure to COVID-19
CPT/HCPCS: 36415; 71045; 71046; 71250; 80048; 80053; 80076; 81001; 82533; 82805; 82947; 83735; 83880; 84484; 85025; 85610; 87077; 87086; 87088; 87186; 93005; 93306; 94002; 94003; 94640; 94660; 94760; 99285; J1940; J2270; J2920; J2930; J7030; J7040; J7050; U0003

== ENCOUNTER 2022-06-03 11:54 | Inpatient (IN) | payer OTHER ==
--- OUTSIDE RECORDS SUMMARY | 2022-06-03 12:10 | XMS REPORT | Clinical Summary ---
:1935 Author Organization [facility] MD [facility] Address [address] [place] [address] Care Team Providers Name Role Phone Leonard [...] Added automatically from request for husam rony [id number] Anemia 02/17/2022 Mass of urinary bladder 02/17/2022 Overview: Added automatically from request for husam rony [id number] Pleural effusion 12/23/2021 Last Assessment & Plan: [...] Encounters Date Type Specialty Care Team Description 06/03/2022 Telephone Oncology Gabriel Newsome RN 05/29/2022 Orders Only Thoracic Medicine Nicolette Morataya ANP 05/28/2022 Orders Only Thoracic Medicine Nicolette Morataya ANP 05/27/2022 Orders Only Urology Shed, Umm E, Bladder canc er PA (Primary Dx) 05/27/2022 Telephone Surgical Oncology Rosalia Cedeno, MEETA 05/24/2022 Nurse Triage Alonso Caceres RN 05/22/2022 Telemedicine Nephrology Parish Bass, Acute tubula r necrosis (Primary Dx); Hyposmolality a nd/or hyponatremia 05/22/2022 Telephone Urology Umm Mccann, PA 05/22/2022 Telephone Surgical Oncology Rosalia Cedeno, MEETA 05/21/2022 Clinical Support Surgical Oncology Shed Umm E, Isauro dder cancer PA (Primary Dx) Rosalia Cedeno, MEETA 05/21/2022 Travel 05/20/2022 Orders Only Urology ShedUmm, PA 05/20/2022 Telephone Surgical Oncology Rosalia Cedeno, MEETA 05/20/2022 Telephone Surgical Oncology Rosalia Cedeno, MEETA 05/13/2022 Telephone Surgical Oncology Rosalia Cedeno, MEETA 05/13/2022 Orders Only Urology Shed, Umm E, Bladder canc er PA (Primary Dx) 05/13/2022 Telephone Surgical Oncology Rosalia Cedeno, MEETA 05/02/2022 Telephone Urology Shed Umm E, PA 05/02/2022 Orders Only Urology Cassie Vizcaino MD 05/01/2022 Telemedicine Genitourinary Kyle Barba Rp, Squamous olga l carcinoma, NOS of lower lobe, lung <Left>; Oncology Squamous cell c arcinoma; Mass of urinary bladder 05/01/2022 Telephone Urology Shed, Umm E, PA 05/01/2022 Telephone Urology Shed, Umm E, PA 05/01/2022 Orders Only Urology Shed, Umm E, Bladder canc er PA (Primary Dx) 04/21/2022 Infusion Infusion Services Salazar Gay MD 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 (Primary Dx) 04/21/2022 Travel 04/18/2022 Orders Only Thoracic Medicine Eileen Singh, PharmD 04/17/2022 Telemedicine Thoracic Medicine Salazar Gay MD 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 (Primary Dx) 04/14/2022 Clinical Support Surgical Oncology ShedUmm, Isauro dder cancer Rosalia Calero, MEETA 04/14/2022 Travel 04/11/2022 Orders Only Oncology Bria Blackwood Squamous cell carcinoma, NOS of lower lobe, 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> (Primary Dx); L, 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 Squamous cell c arcinoma; Mass of urinary bladder 04/10/2022 Orders Only Oncology Bria Blackwood 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 04/08/2022 Orders Only Urology Shed, Umm Ranjana, Bladder canc er PA (Primary Dx) 04/06/2022 Emergency Clinical Decision Goldy, Hyposmolal ity and/or hyponatremia (Primary Dx); - MD Derik Hematuria; 04/08/2022 Diez, Squamous cell c arcinoma of lower lobe of left lung; Elvin Beaver MD Permanent atrial fibrillation; Nayeli, Gross hematuria MD Sae 04/06/2022 Travel 04/06/2022 Telephone Urology Ren Walker MD 04/06/2022 Nurse Triage Fabrizio Padilla, MEETA 04/06/2022 Nurse Triage Nicolette Reyna RN 04/03/2022 Clinical Support Surgical Oncology Umm Mccann Bla dder cancer Gabriel Foote RN 04/03/2022 Travel 04/02/2022 Orders Only Urology Ramy Umm E, Bladder canc er PA (Primary Dx) 04/01/2022 Telephone Karine Cummins RN 04/01/2022 Orders Only Thoracic Medicine Nicolette Morataya ANP 03/31/2022 Anesthesia Event Alberto Perez III, MD 03/31/2022 Surgery Cassie Vizcaino, CYSTOURETHROS COPY WITH MD FULGURATION AND /OR TREATMENT OF SM ALL LESION(S) (0.5 UP TO 2.0 CM) 03/31/2022 Hospital Encounter Cassie Vizcaino, Bladder cancer (Primary Dx) 03/31/2022 Telephone Surgical Oncology Saige Andrews MA 03/31/2022 Travel 03/28/2022 Anesthesia Event Anesthesiology Lenka Chau APN 03/28/2022 POEM Appointments Anesthesiology Umm Mccann, Bladd er cancer PA 03/28/2022 Clinical Support Covid Umm Mccann, Vera n (Primary Dx); PA Bladder cancer Samuel Burger MA 03/28/2022 Orders Only Urology ShedUmm, Bladder canc er PA (Primary Dx) 03/28/2022 Travel 03/27/2022 Telemedicine Urology Cassie Vizcaino, Bladder cance r; Mass of urinary bladder 03/27/2022 Telephone Thoracic Medicine Marii Malik, RN 03/27/2022 Orders Only Thoracic Medicine Marii Malik, RN 03/21/2022 Telephone Surgical Oncology Rosalia Cedeno RN 03/21/2022 Orders Only Urology Umm Mccann, Bladder canc er PA (Primary Dx) 03/20/2022 Telephone Oncology Bria Blackwood APN 03/20/2022 Orders Only Urology Umm Mccann, Bladder canc er PA (Primary Dx) 03/18/2022 Consult Genitourinary Kyle Barba Rp, Bladder canc er Oncology 03/18/2022 Travel 03/17/2022 Orders Only Oncology Bria Blackwood 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 (Primary Dx); L, 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 Squamous cell c arcinoma; Mass of urinary [...] Dx) 03/04/2022 Orders Only Thoracic Medicine Yarelis Morataya, HEMA carcinoma of lower lobe of left bonnie ng (Primary Dx) 03/04/2022 Orders Only Thoracic Medicine Vijaya Maxwell, PharmD 03/04/2022 Travel 03/03/2022 Orders Only Thoracic Medicine Nicolette Morataya, HEMA 02/27/2022 Telephone Urology Umm Mccann PA 02/26/2022 [...] CM) 02/19/2022 Hospital Encounter Ambulatory Surgery Cassie Vizcaino P ainful bladder spasm (Primary Dx); - [...] Covid Umm Mccann, Suspicio n (Primary Dx); SANDI Mass of urinary bladder Samuel Burger MA 02/17/2022 Consult Urology Cassie Vizcaino, Mass of urina ry bladder (Primary Dx); Gross hematuria 02/17/2022 Travel 02/11/2022 Orders Only Thoracic Medicine Nicolette Morataya, HEMA 02/04/2022 Ancillary Radiology Enzo, Cancer Procedure MD [...] Sally Smith asking to spe ak to Monica INSPECTOR [employer] provider; Short ness of Breath 12/24/2021 Orders [...] Hospital Encounter Lab Patrickenney, Pleural e ffusion Lauren, ACTIVITY DIRECTOR 12/23/2021 Ancillary Radiology Pricilla, Pleural effusio n Procedure Lauren, ACTIVITY DIRECTOR 12/23/2021 Travel 12/11/2021 Telephone Thoracic Medicine Nicolette Morataya ANP 12/11/2021 Orders Only Pulmonology Pricilla, Pleural effusio n Lauren, ACTIVITY DIRECTOR (Primary Dx) 12/10/2021 Office Visit Thoracic Medicine Salazar Gay MD carcinoma, NOS of lower lobe, dmitri g <Left> 12/10/2021 Orders Only Radiology Rosita Milian MD 12/10/2021 Travel 12/09/2021 Ancillary Radiology Salazar Gay MD carcinoma, NOS of lower lobe, dmitri g <Left> 12/09/2021 Travel 11/19/2021 Orders Only Thoracic Medicine Liudmila Guzman, INSPECTOR [employer] carcinoma, NOS of lower lobe, dmitri g [...] <Left> 11/13/2021 Orders Only Thoracic Medicine Vijaya Maxwell Squamous [...] NOS of Rafia, lower lobe, dmitri g HEMA Will <Left> 10/17/2021 Travel 10/17/2021 Orders Only Thoracic Medicine Rafia Yarelis HEMA Morales carcinoma of lower lobe of left bonnie [...] MD 09/18/2021 Travel 09/01/2021 Orders Only Rakesh Stein Squamous cell c [...] Telephone Infusion Services Yun Steele, Follow-up (chemo call RN back) 07/25/2021 Travel [...] (Primary Dx) 06/26/2021 Office Visit Thoracic Medicine Salazar Gay MD 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 (Primary Dx) 06/26/2021 Travel 06/26/2021 Orders Only Thoracic Medicine Salazar Gay MD 06/25/2021 Ancillary Radiology Rafia, Squamous cell HEMA Landers carcinoma of lower lobe of left bonnie ng 06/25/2021 Travel after 06/03/2021 Immunizations Name Administration Dates Next Due Influenza [...] 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 EBUS GUIDED SAMPL 11/08/2018 N/A Pro cedure: BRONCHOSCOPY 3/> NODE STATION/STRUX WITH EBUS 3 OR MORE NODES; Surgeon: Sandra Agarwal MD; [facility]; Service: [facility]TX 11/08/2018 N/A Pro cedure: BRONCHOSCOPY INTERVENTION PERPH LES WITH EBUS PERIPHERAL LESION-RADIAL AL OBE; Surgeon: Sandra Agarwal MD; Location[facility]; Service: P ULMONARY AL REMOVE THOR LYMPH NODES RAD 12/15/2019 Chest/Left P rocedure: THORACIC REGNL LYMPHADENECTOMY BY THORACOTOMY, MED IASTINAL AND REGIONAL LYMPHADENECTOMY; Surgeon: Flavio Benson MD; Location: MAIN OR; Service : THRCV - THORACIC SURGERY Medical devices from this surgery are in t he Medical Devices section. AL REMOVAL OF 12/15/2019 Chest/Left Procedure: SEGME NTECTOMY LUNG,SEGMENTECTOMY OF LUNG; Surg sruthi: Flavio Benson MD; Loca tion: MAIN OR; Service: THR CV - THORACIC SURGERY Medical devices from this surgery are in t he Medical Devices section. AL INJECTION AA&/STRD 12/15/2019 Chest/Left Procedure: REGIONAL INTERCOSTAL NRV EA ADDL LVL ANES THETIC BLOCK OF MULTIPLE INTERCO STAL NERVES, REGIONAL BLOCK; Surgeon: Flavio shelton MD; Location: MAIN O R; Service: THRCV - THORACIC SURGERY Medical devices from this surgery are in t he Medical Devices section. CYSTOSCOPY FULGRATION BLADDER 10/05/2017 - s/ p TURBT at [facility], benign 10/04/2018 per report AL CYSTOURETHROSCOPY,FULGUR >5 02/19/2022 Bladder/N/A P rocedure: CM LESN CYSTOURETHROSCOP Y WITH FULGURATION AND/ OR TREATMENT OF LAR GE LESION(S) (>5.0 CM); Surgeon: Cassie Vizcaino MD; Location: [facility]; Service: UROLOGY AL CYSTOURETHROSCOPY,FULGUR 03/31/2022 N/A Proc edure: 0.5-2 CM [...] 04/06/2022 11:00 PM CDT Plan of Treatment Health Maintenance Due Date Last Done Comments COVID-19 Vaccination Completed 12/01/2021, 11/11/2021, , Additional history exists Medical Devices Implanted Type Area General Internist Device Shelf Model / Identifier Expiration Serial / Date Lot Cath Thoracic Str 28fr - Sn/A LDA Left: Chest [employer] 08/12/2022 [id number] / Implanted: Qty: 1 on 12/15/2019 by Flavio Benson MD at [employer] [place] N/A / [id number] Stent-11/08/2013 Stent Abdomen Implanted: 11/08/2013 (Quantity not [...] LESION(S) (>5.0 CM) Special Needs VS 830 MAYave surgery info rmation to daughter. She stated [...] <Left> section. ALBUMIN LEVEL Routine 02/04/2022 8:05 AM Squamous cell [...] c ell Results for this STRATEGY AM TEA LEAF READER carcinoma, NOS procedure are in of lower lobe, the results lung <Left> section. FRACTIONATED BILIRUBIN Routine 12/09/2021 9:00 AM Squamous olga l Results for this TEA LEAF READER carcinoma, NOS procedure are in of lower lobe, the results lung <Left> section. TOTAL PROTEIN Routine 12/09/2021 9:00 AM Squamous cell Results for this TEA LEAF READER carcinoma, NOS procedure are in of lower lobe, the results lung <Left> section. ASPARTATE AMINOTRANSFERASE Routine 12/09/2021 9:00 AM Squamous cell Results for this TEA LEAF READER carcinoma, NOS procedure are in of lower lobe, the results lung <Left> section. ALANINE AMINOTRANSFERASE Routine 12/09/2021 9:00 AM Squamous c ell Results for this TEA LEAF READER carcinoma, NOS procedure are in of lower lobe, the results lung <Left> section. ALKALINE PHOSPHATASE Routine 12/09/2021 9:00 AM Squamous cell Results for this TEA LEAF READER carcinoma, NOS procedure are in of lower lobe, the results lung <Left> section. ALBUMIN LEVEL Routine 12/09/2021 9:00 AM Squamous cell Results for this TEA LEAF READER carcinoma, NOS procedure are in of lower lobe, the results lung <Left> section. CALCIUM LEVEL TOTAL Routine 12/09/2021 9:00 AM Squamous cell R esults for this TEA LEAF READER carcinoma, NOS procedure are in of lower lobe, the results lung <Left> section. .GLOMERULAR FILTRATION RATE Routine 12/09/2021 9:00 AM Squamou s cell Results for this TEA LEAF READER carcinoma, NOS procedure are in of lower lobe, the results lung <Left> section. SERUM CREATININE Routine 12/09/2021 9:00 AM Squamous cell Resu lts for this TEA LEAF READER carcinoma, NOS procedure are in of lower lobe, the results lung <Left> section. ELECTROLYTE PANEL Routine 12/09/2021 9:00 AM Squamous cell Res ults for this TEA LEAF READER carcinoma, NOS procedure are in of lower lobe, the results lung <Left> section. BLOOD UREA NITROGEN Routine 12/09/2021 9:00 AM Squamous cell R esults for this TEA LEAF READER carcinoma, NOS procedure are in of lower lobe, the results lung <Left> section. GLUCOSE LEVEL Routine 12/09/2021 9:00 AM Squamous cell Results for this TEA LEAF READER carcinoma, NOS procedure are in of lower lobe, the results lung <Left> section. MANUAL DIFFERENTIAL Routine 12/09/2021 9:00 AM Squamous cell R esults for this TEA LEAF READER carcinoma, NOS procedure are in of lower lobe, the results lung <Left> section. Results CBC Routine 12/09/2021 9:00 AM Squamous cell Results for this TEA LEAF READER carcinoma, NOS procedure are in of lower lobe, the results lung <Left> section. FREE THYROXINE Routine 12/09/2021 9:00 AM Squamous cell Result s for this TEA LEAF READER carcinoma of procedure are i n lower lobe of the results left lung section. THYROID STIMULATING HORMONE Routine 12/09/2021 9:00 AM Squamou s cell Results for this TEA LEAF READER carcinoma of procedure are i n lower lobe of the results left lung section. MAGNESIUM LEVEL Routine 12/09/2021 9:00 AM Squamous cell Resul ts for this TEA LEAF READER carcinoma of procedure are i n lower lobe of the results left lung section. COMPREHENSIVE METABOLIC Routine 12/09/2021 9:00 AM Squamous ce ll PANEL TEA LEAF READER carcinoma of lower lobe of left lung COMPLETE BLOOD COUNT W/ Routine 12/09/2021 9:00 AM Squamous ce ll DIFFERENTIAL TEA LEAF READER carcinoma of lower lobe of left lung OSI CHEST Routine 11/19/2021 3:19 PM Cancer Results f or this TEA LEAF READER procedure are i n the results section. GENERAL LABORATORY ADD ON STAT 11/13/2021 3:45 PM Squamous cell Results for this TEST TEA LEAF READER carcinoma of procedure are i n lower lobe of the results left lung section. THYROID STIMULATING HORMONE Routine 11/13/2021 8:54 AM Results for this TEA LEAF READER procedure are i n the results section. FREE THYROXINE Routine 11/13/2021 8:54 AM Results for this TEA LEAF READER procedure are i n the results section. MANUAL DIFFERENTIAL Routine 11/13/2021 8:54 AM Squamous cell R esults for this TEA LEAF READER carcinoma, NOS procedure are in of lower lobe, the results lung <Left> section. Results CBC Routine 11/13/2021 8:54 AM Squamous cell Results for this TEA LEAF READER carcinoma, NOS procedure are in of lower lobe, the results lung <Left> section. FRACTIONATED BILIRUBIN Routine 11/13/2021 8:54 AM Squamous olga l Results for this TEA LEAF READER carcinoma, NOS procedure are in of lower lobe, the results lung <Left> section. TOTAL PROTEIN Routine 11/13/2021 8:54 AM Squamous cell Results for this TEA LEAF READER carcinoma, NOS procedure are in of lower lobe, the results lung <Left> section. ASPARTATE AMINOTRANSFERASE Routine 11/13/2021 8:54 AM Squamous cell Results for this TEA LEAF READER carcinoma, NOS procedure are in of lower lobe, the results lung <Left> section. ALANINE AMINOTRANSFERASE Routine 11/13/2021 8:54 AM Squamous c ell Results for this TEA LEAF READER carcinoma, NOS procedure are in of lower lobe, the results lung <Left> section. ALKALINE PHOSPHATASE Routine 11/13/2021 8:54 AM Squamous cell Results for this TEA LEAF READER carcinoma, NOS procedure are in of lower lobe, the results lung <Left> section. ALBUMIN LEVEL Routine 11/13/2021 8:54 AM Squamous cell Results for this TEA LEAF READER carcinoma, NOS procedure are in of lower lobe, the results lung <Left> section. CALCIUM LEVEL TOTAL Routine 11/13/2021 8:54 AM Squamous cell R esults for this TEA LEAF READER carcinoma, NOS procedure are in of lower lobe, the results lung <Left> section. .GLOMERULAR FILTRATION RATE Routine 11/13/2021 8:54 AM Squamou s cell Results for this TEA LEAF READER carcinoma, NOS procedure are in of lower lobe, the results lung <Left> section. SERUM CREATININE Routine 11/13/2021 8:54 AM Squamous cell Resu lts for this TEA LEAF READER carcinoma, NOS procedure are in of lower lobe, the results lung <Left> section. ELECTROLYTE PANEL Routine 11/13/2021 8:54 AM Squamous cell Res ults for this TEA LEAF READER carcinoma, NOS procedure are in of lower lobe, the results lung <Left> section. BLOOD UREA NITROGEN Routine 11/13/2021 8:54 AM Squamous cell R esults for this TEA LEAF READER carcinoma, NOS procedure are in of lower lobe, the results lung <Left> section. GLUCOSE LEVEL Routine 11/13/2021 8:54 AM Squamous cell Results for this TEA LEAF READER carcinoma, NOS procedure are in of lower lobe, the results lung <Left> section. MAGNESIUM LEVEL Routine 11/13/2021 8:54 AM Squamous cell Resul ts for this TEA LEAF READER carcinoma of procedure are i n lower lobe of the results left lung section. COMPREHENSIVE METABOLIC Routine 11/13/2021 8:54 AM Squamous ce ll PANEL TEA LEAF READER carcinoma of lower lobe of left lung COMPLETE BLOOD COUNT W/ Routine 11/13/2021 8:54 AM Squamous ce ll DIFFERENTIAL TEA LEAF READER carcinoma of lower lobe of left lung FRACTIONATED BILIRUBIN Routine 10/15/2021 10:56 R esults for this AM TEA LEAF READER procedure are i n the results section. TOTAL PROTEIN Routine 10/15/2021 10:56 Results fo r this AM TEA LEAF READER procedure are i n the results section. ASPARTATE AMINOTRANSFERASE Routine 10/15/2021 10:56 Results for this AM TEA LEAF READER procedure are i n the results section. ALANINE AMINOTRANSFERASE Routine 10/15/2021 10:56 Results for this AM TEA LEAF READER procedure are i n the results section. ALKALINE PHOSPHATASE Routine 10/15/2021 10:56 Res ults for this AM TEA LEAF READER procedure are i n the results section. ALBUMIN LEVEL Routine 10/15/2021 10:56 Results fo r this AM TEA LEAF READER procedure are i n the results section. CALCIUM LEVEL TOTAL Routine 10/15/2021 10:56 Resu lts for this AM TEA LEAF READER procedure are i n the results section. .GLOMERULAR FILTRATION RATE Routine 10/15/2021 10:56 Results for this AM TEA LEAF READER procedure are i n the results section. SERUM CREATININE Routine 10/15/2021 10:56 Results for this AM TEA LEAF READER procedure are i n the results section. ELECTROLYTE PANEL Routine 10/15/2021 10:56 Result s for this AM TEA LEAF READER procedure are i n the results section. BLOOD UREA NITROGEN Routine 10/15/2021 10:56 Resu lts for this AM TEA LEAF READER procedure are i n the results section. GLUCOSE LEVEL Routine 10/15/2021 10:56 Results fo r this AM TEA LEAF READER procedure are i n the results section. MANUAL DIFFERENTIAL Routine 10/15/2021 10:56 Resu lts for this AM TEA LEAF READER procedure are i n the results section. Results CBC Routine 10/15/2021 10:56 Results for this AM TEA LEAF READER procedure are i n the results section. FREE THYROXINE Routine 10/15/2021 10:56 Results f or this AM TEA LEAF READER procedure are i n the results section. THYROID STIMULATING HORMONE Routine 10/15/2021 10:56 Results for this AM TEA LEAF READER procedure are i n the results section. MAGNESIUM LEVEL Routine 10/15/2021 10:56 Results for this AM TEA LEAF READER procedure are i n the results section. COMPREHENSIVE METABOLIC Routine 10/15/2021 10:56 PANEL AM TEA LEAF READER COMPLETE BLOOD COUNT W/ Routine 10/15/2021 10:56 DIFFERENTIAL AM TEA LEAF READER CT CHEST W CONTRAST Routine 10/15/2021 9:56 AM Squamous cell R esults for this TEA LEAF READER carcinoma, NOS procedure are in of lower lobe, the results lung <Left> section. POC CREATININE Routine 10/15/2021 9:21 AM Results for this TEA LEAF READER procedure are i n the results section. PATHOLOGY BIOPSY Routine 09/30/2021 8:31 AM Basal cell Resul ts for this INTERPRETATION TEA LEAF READER carcinoma of procedure are in anterior chest the results Basal cell section. carcinoma of back EXCISION Routine 09/30/2021 8:30 AM Basal cell Results f or this TEA LEAF READER carcinoma of procedure are i n back the results section. EXCISION Routine 09/30/2021 8:29 AM Basal cell Results f or this TEA LEAF READER carcinoma of procedure are i n anterior chest the results section. MOHS SITE 1 Routine 09/30/2021 8:29 AM Squamous cell Results for this TEA LEAF READER carcinoma of procedure are i n forehead the results section. MOHS SITE 1 Routine 09/30/2021 8:29 AM Squamous cell Results for this TEA LEAF READER carcinoma of procedure are i n scalp the results section. FRACTIONATED BILIRUBIN Routine 09/18/2021 10:30 R esults for this AM TEA LEAF READER procedure are i n the results section. TOTAL PROTEIN Routine 09/18/2021 10:30 Results fo r this AM TEA LEAF READER procedure are i n the results section. ASPARTATE AMINOTRANSFERASE Routine 09/18/2021 10:30 Results for this AM TEA LEAF READER procedure are i n the results section. ALANINE AMINOTRANSFERASE Routine 09/18/2021 10:30 Results for this AM TEA LEAF READER procedure are i n the results section. ALKALINE PHOSPHATASE Routine 09/18/2021 10:30 Res ults for this AM TEA LEAF READER procedure are i n the results section. ALBUMIN LEVEL Routine 09/18/2021 10:30 Results fo r this AM TEA LEAF READER procedure are i n the results section. CALCIUM LEVEL TOTAL Routine 09/18/2021 10:30 Resu lts for this AM TEA LEAF READER procedure are i n the results section. .GLOMERULAR FILTRATION RATE Routine 09/18/2021 10:30 Results for this AM TEA LEAF READER procedure are i n the results section. SERUM CREATININE Routine 09/18/2021 10:30 Results for this AM TEA LEAF READER procedure are i n the results section. ELECTROLYTE PANEL Routine 09/18/2021 10:30 Result s for this AM TEA LEAF READER procedure are i n the results section. BLOOD UREA NITROGEN Routine 09/18/2021 10:30 Resu lts for this AM TEA LEAF READER procedure are i n the results section. GLUCOSE LEVEL Routine 09/18/2021 10:30 Results fo r this AM TEA LEAF READER procedure are i n the results section. MANUAL DIFFERENTIAL Routine 09/18/2021 10:30 Resu lts for this AM TEA LEAF READER procedure are i n the results section. Results CBC Routine 09/18/2021 10:30 Results for this AM TEA LEAF READER procedure are i n the results section. FREE THYROXINE Routine 09/18/2021 10:30 Results f or this AM TEA LEAF READER procedure are i n the results section. THYROID STIMULATING HORMONE Routine 09/18/2021 10:30 Results for this AM TEA LEAF READER procedure are i n the results section. MAGNESIUM LEVEL Routine 09/18/2021 10:30 Results for this AM TEA LEAF READER procedure are i n the results section. COMPREHENSIVE METABOLIC Routine 09/18/2021 10:30 PANEL AM TEA LEAF READER COMPLETE BLOOD COUNT W/ Routine 09/18/2021 10:30 DIFFERENTIAL AM TEA LEAF READER PATHOLOGY BIOPSY Routine 08/21/2021 10:17 Neoplasm of Results for this INTERPRETATION AM TEA LEAF READER uncertain procedure are in behavior of skin the results section. CT CHEST W CONTRAST Routine 08/20/2021 10:32 Squamous cell Res ults for this AM TEA LEAF READER carcinoma, NOS procedure are in of lower lobe, the results lung <Left> section. POC CREATININE Routine 08/20/2021 10:03 Results f or this AM TE[employer] LEAF READER procedure are i n the results section. FRACTIONATED BILIRUBIN Routine 08/20/2021 9:23 AM Results for this TEA LEAF READER procedure are i n the results section. TOTAL PROTEIN Routine 08/20/2021 9:23 AM Results for this TEA LEAF READER procedure are i n the results section. ASPARTATE AMINOTRANSFERASE Routine 08/20/2021 9:23 AM Results for this TEA LEAF READER procedure are i n the results section. ALANINE AMINOTRANSFERASE Routine 08/20/2021 9:23 AM Results for this TEA LEAF READER procedure are i n the results section. ALKALINE PHOSPHATASE Routine 08/20/2021 9:23 AM R esults for this TEA LEAF READER procedure are i n the results section. ALBUMIN LEVEL Routine 08/20/2021 9:23 AM Results for this TEA LEAF READER procedure are i n the results section. CALCIUM LEVEL TOTAL Routine 08/20/2021 9:23 AM Re sults for this TEA LEAF READER procedure are i n the results section. .GLOMERULAR FILTRATION RATE Routine 08/20/2021 9:23 AM Results for this TEA LEAF READER procedure are i n the results section. SERUM CREATININE Routine 08/20/2021 9:23 AM Resul ts for this TEA LEAF READER procedure are i n the results section. ELECTROLYTE PANEL Routine 08/20/2021 9:23 AM Resu lts for this TEA LEAF READER procedure are i n the results section. BLOOD UREA NITROGEN Routine 08/20/2021 9:23 AM Re sults for this TEA LEAF READER procedure are i n the results section. GLUCOSE LEVEL Routine 08/20/2021 9:23 AM Results for this TEA LEAF READER procedure are i n the results section. MANUAL DIFFERENTIAL Routine 08/20/2021 9:23 AM Re sults for this [employer] procedure are i n the results section. Results CBC Routine 08/20/2021 9:23 AM Results f or this [employer] procedure are i n the results section. FREE THYROXINE Routine 08/20/2021 9:23 AM Results for this [employer] procedure are i n the results section. THYROID STIMULATING HORMONE Routine 08/20/2021 9:23 AM Results for this [employer] procedure are i n the results section. MAGNESIUM LEVEL Routine 08/20/2021 9:23 AM Result s for this [employer] procedure are i n the results section. 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 ASPARTATE AMINOTRANSFERASE Routine 07/24/2021 2:10 PM Squamous cell Results [...] of lower lobe of left lung after 06/03/2021 Results (ABNORMAL) .Serum Creatinine (04/14/2022 10:19 AM CDT)Only the most recent of15 resultswithin the time period is included. athologist Signature Creatinine 1.29 (H) 0.67 - 1.17 MENNO mg/dL Comment: Testing performed at [facility], [address], [place] [address] Specimen Anatomical Collection Method Collection Time Receive d Time (Source) Location / / Volume Laterality Blood 04/14/2022 10:19 04/14/2022 AM CDT 10:59 AM CDT Narrative MENNO - 04/14/2022 11:30 AM CDT Within 72 hours prior to each dose. Salazar Gay MD LAB BLOOD ORDERABLES Performing Organization Address City/State/ZIP Code Phon e Number [facility] [place] [address] [place] [address] (ABNORMAL) .CBC (04/14/2022 10:19 AM CDT)Only the most recent of15 resultswithin the time period is included. athologist Signature WBC 10.0 4.0 - 11.0 MENNO K/uL Comment: All components of the CBC perfo rmed at [facility], [address] [place] [address] 7757 33 RBC 4.67 4.50 - 6.00 M/uL MENNO Comment: All components of the CBC perfo rmed at [facility], [address] [place] [address], [place] [address] Hgb 11.8 (L) 14.0 - 18.0 gm/dL MENNO Comment: As part of CBC or as an individ ual orderable testing performed at [facility], [address] [place] [address], [place] [address] Hct 39.5 (L) 40.0 - 54.0 % MENNO Comment: As part of CBC testing performe d at [facility], [address] [place] [address] MCV 85 82 - 98 fL MENNO Comment: As part of CBC testing performe d at [facility], [address] [place] [address] 33389 MCH 25.3 (L) 27.0 - 31.0 pg MENNO Comment: As part of CBC testing performe d at [facility], [address] [place] [address] 87647 MCHC 29.9 (L) 31.0 - 36.0 gm/dL MENNO Comment: As part of CBC testing performe d at [facility], [address] [place] [address] 34462 RDW-SD 64.4 (H) 35.1 - 46.3 fL MENNO Comment: As part of CBC testing performe d at [facility], [address] [place] [address] 40526 RDW-CV 21.0 (H) 12.0 - 15.5 % MENNO Comment: As part of CBC testing performe d at [facility], [address] [place] [address] Platelet count 201 140 - 440 K/uL [facility] Comment: As part of CBC or an individual orderable testing performed at [facility], [address] [place] [address] 81081 MPV 8.4 4.0 - 10.4 fL MENNO Comment: As part of CBC testing performe d at [facility], [address] [place] [address] Specimen Anatomical Collection Method Collection Time Receive d Time (Source) Location / / Volume Laterality Blood 04/14/2022 10:19 04/14/2022 AM CDT 10:59 AM CDT Narrative MENNO - 04/14/2022 11:17 AM CDT Within 72 hours prior to each dose. Salazar Gay MD LAB BLOOD ORDERABLES Performing Organization Address City/State/ZIP Code [place] [address] [place] [address] (ABNORMAL) Glomerular Filtration Rate (04/14/2022 10:19 AM CDT)Only the most recent of15 resultswithin the time period is included. athologist Signature eGFR-AA 58 (L) >=60 MENNO mL/min/1.73 sq. m Comment: Normal eGFR >= [...] 5 Kidney failure <15 Testing performed at [facility], [address] [place] [address], [place] [address] eGFR-GOLDIE 50 (L) >=60 mL/min/1.73 sq. m MENNO Comment: Normal eGFR >= 60 mL/min/1.73 m2 [...] 5 Kidney failure <15 Testing performed at [facility], [address] [place] [address] Specimen Anatomical Collection Method Collection Time Receive d Time (Source) Location / / Volume Laterality Blood 04/14/2022 10:19 04/14/2022 AM CDT 10:59 AM CDT [facility] - 04/14/2022 11:30 AM CDT Within 72 hours prior to each dose. Salazar Gay MD LAB BLOOD ORDERABLES Performing Organization Address City/State/ZIP Code Phon e Number [facility] [place] [address] [place] [address] Fractionated Bilirubin (04/14/2022 10:19 AM CDT)Only the most recent of13 resultswithin the time period is included. athologist Signature Bili Total 1.2 <=1.2 mg/dL MENNO Comment: Indocyanine Green (ICG) may cause falsel y elevated bilirubin results. Total and direct bilirubin must not be measured from samples containing indocyanine green. False elevation of total bilirubin can b e seen in patients with IgG concentrations above 28 g/L. Testing performed at [facility], [address] [place] [address], [place] [address] Bili Direct 0.3 <=0.3 mg/dL MENNO Comment: Indocyanine Green (ICG) may cause falsel y elevated bilirubin results. Total and direct bilirubin must not be measured from samples containing indocyanine green. Testing performed at [facility], [address] [place] [address], [place] [address] Bili Indirect 0.9 0.0 - 0.9 mg/dL [facility] Y Comment: Testing performed at [facility], [address] [place] [address], [place] [address] Specimen Anatomical Collection Method Collection Time Receive d Time (Source) Location / / Volume Laterality Blood 04/14/2022 10:19 04/14/2022 AM CDT 10:59 AM CDT Narrative MENNO - 04/14/2022 11:30 AM CDT Within 72 hours prior to each dose. Salazar Gay MD LAB BLOOD ORDERABLES Performing Organization Address City/State/ZIP Code [place] [address] [place] [address] (ABNORMAL) Differential (04/14/2022 10:19 AM CDT)Only the most recent of15 resultswithin the time period is included. athologist Signature Neutrophil % 78.8 (H) 42.0 - MENNO 66.0 % Comment: All components of the Different ial performed at [facility], [address] [place] [address] Lymphocyte % 11.1 (L) 24.0 - 44.0 % MENNO Comment: As part of the Differential derek ting performed at [facility], [address] [place] [address] Monocyte % 8.4 (H) 2.0 - 7.0 % MENNO Comment: As part of the Differential derek ting performed at [facility], [address] [place] [address] Eosinophil % 1.3 1.0 - 4.0 % MENNO Comment: As part of the Differential derek ting performed at [facility], [address] [place] [address] Basophil % 0.3 0.0 - 1.0 % MENNO Comment: As part of the Differential derek ting performed at [facility], [address] [place] [address] IGRE % 0.1 0.0 - 0.4 % MENNO Comment: IGRE % count includes Metamyelocytes, My elocytes, and Promyelocytes. As part of the Differential testing perf ormed at [facility], [address] [place] [address] Neutrophil Abs 7.92 (H) 1.70 - 7.30 K/uL [facility] Comment: As part of the Differential derek ting performed at [facility], [address] [place] [address] Lymphocyte Abs 1.11 1.00 - 4.80 K/uL [facility] Comment: As part of the Differential derek ting performed at [facility], [address] [place] [address] Monocyte Abs 0.84 (H) 0.08 - 0.70 K/uL [facility] Comment: As part of the Differential derek ting performed at [facility], [address] [place] [address] Eosinophil Abs 0.13 0.04 - 0.40 K/uL [facility] Comment: As part of the Differential derek ting performed at [facility], [address] [place] [address] Basophil Abs 0.03 0.00 - 0.10 K/uL [facility] Comment: As part of the Differential derek ting performed at [facility], [address] [place] [address] IG Abs 0.01 0.00 - 0.04 K/uL MENNO Comment: As part of the Differential derek ting performed at [facility], [address] [place] [address] Specimen Anatomical Collection Method Collection Time Receive d Time (Source) Location / / Volume Laterality Blood 04/14/2022 10:19 04/14/2022 AM CDT 10:59 AM CDT [facility] - 04/14/2022 11:09 AM CDT Within 72 hours prior to each dose. Salazar Gay MD LAB BLOOD ORDERABLES Performing Organization Address City/State/ZIP Code Phon e Roberto Carlos [place], [place] [id number] [place] [address] (ABNORMAL) BUN (04/14/2022 10:19 AM CDT)Only the most recent of15 resultswithin the time period is included. P athologist Signature BUN 30 (H) 6 - 23 mg/dL MENNO Comment: Testing performed at [facility], [address] [place] [address] Specimen Anatomical Collection Method Collection Time Receive d Time (Source) Location / / Volume Laterality Blood 04/14/2022 10:19 04/14/2022 AM CDT 10:59 AM CDT [facility] - 04/14/2022 11:30 AM CDT Within 72 hours prior to each dose. Salazar Gay MD LAB BLOOD ORDERABLES Performing Organization Address City/[facility]/ZIP Code Phon e [address] (ABNORMAL) ALT (04/14/2022 10:19 AM CDT)Only the most recent of13 resultswithin the time period is included. P athologist Signature ALT 45 (H) <=41 U/L MENNO Comment: Testing performed at [facility], [address] [place] [address] Specimen Anatomical Collection Method Collection Time Receive d Time (Source) Location / / Volume Laterality Blood 04/14/2022 10:19 04/14/2022 AM CDT 10:59 AM CDT [facility] - 04/14/2022 11:30 AM CDT Within 72 hours prior to each dose. Salazar Gay MD LAB BLOOD ORDERABLES Performing Organization Address City/State/ZIP Code Phon e Number [address] Aspartate Aminotransferase (04/14/2022 10:19 AM CDT)Only the most recent of13 resultswithin the time period is included. [facility] AST 39 <=40 U/L MENNO Comment: Testing performed at [facility], [address] [place] [address] Specimen Anatomical Collection Method Collection Time Receive d Time (Source) Location / / Volume Laterality Blood 04/14/2022 10:19 04/14/2022 AM CDT 10:59 AM CDT [facility] - 04/14/2022 11:30 AM CDT Within 72 hours prior to each dose. Salazar Gay MD LAB BLOOD ORDERABLES Performing Organization Address City/State/ZIP Code [place] [address] [place] [address] TSH (04/14/2022 10:19 AM CDT)Only the most recent of11 resultswithin the time period is included. [facility] TSH 2.99 0.27 - 4.20 MENNO mcunit/mL Comment: Testing performed at [facility], [address] [place] [address] Specimen Anatomical Collection Method Collection Time Receive d Time (Source) Location / / Volume Laterality Blood 04/14/2022 10:19 04/14/2022 AM CDT 10:59 AM CDT [facility] - 04/14/2022 12:02 PM CDT Within 72 hours prior to each dose. Salazar Gay MD LAB BLOOD ORDERABLES Performing Organization Address City/State/ZIP [facility] [place] [address] [place] [address] T4, free (04/14/2022 10:19 AM CDT)Only the most recent of11 resultswithin the time period is included. [facility] T4 Free 1.40 0.93 - 1.70 MENNO ng/dL Comment: Testing performed at [facility], [address] [place] [address] Specimen Anatomical Collection Method Collection Time Receive d Time (Source) Location / / Volume Laterality Blood 04/14/2022 10:19 04/14/2022 AM CDT 10:59 AM CDT [facility] - 04/14/2022 12:02 PM CDT Within 72 hours prior to each dose. Salazar Gay MD LAB BLOOD ORDERABLES Performing Organization Address City/[facility]/ZIP Code Phon e Number [address] Total Protein (04/14/2022 10:19 AM CDT)Only the most recent of13 resultswithin the time period is included. P athologist Signature Total Protein 6.8 6.4 - 8.3 MENNO g/dL Comment: Testing performed at [facility], [address] [place] [address] Specimen Anatomical Collection Method Collection Time Receive d Time (Source) Location / / Volume Laterality Blood 04/14/2022 10:19 04/14/2022 AM CDT 10:59 AM CDT [facility] - 04/14/2022 11:30 AM CDT Within 72 hours prior to each dose. Salazar Gay MD LAB BLOOD ORDERABLES Performing Organization Address City/[facility] Code Phon e Number [place] [phone] [place] [address] Alkaline Phosphatase (04/14/2022 10:19 AM CDT)Only the most recent of13 results within the time period is included. P athologist Signature Alk Phos 118 40 - 129 U/L MENNO Comment: Testing performed at [facility], [address] [place] [address] Specimen Anatomical Collection Method Collection Time Receive d Time (Source) Location / / Volume Laterality Blood 04/14/2022 10:19 04/14/2022 AM CDT 10:59 AM CDT [facility] - 04/14/2022 11:30 AM CDT Within 72 hours prior to each dose. Salazar Gay MD LAB BLOOD ORDERABLES Performing Organization Address City/State/ZIP Code [place] [address] [place] [address] Magnesium (04/14/2022 10:19 AM CDT)Only the most recent of14 resultswithin the time period is included. athologist Signature Magnesium 2.0 1.6 - 2.6 MENNO mg/dL Comment: Testing performed at [facility], [address] [place] [address] Specimen Anatomical Collection Method Collection Time Receive d Time (Source) Location / / Volume Laterality Blood 04/14/2022 10:19 04/14/2022 AM CDT 10:59 AM CDT Narrative MENNO - 04/14/2022 11:30 AM CDT Do Labs at [place] on 05/20/21 Salazar Gay MD LAB BLOOD ORDERABLES Performing Organization Address City/State/ZIP Code Phon e Number [place], [place] [id number] [place] [address] Glucose Level (04/14/2022 10:19 AM CDT)Only the most recent of15 resultswithin the time period is included. athologist Signature Glucose Level 99 70 - 99 MENNO mg/dL Comment: Effective 04/30/16, the glucose reference intervals have been updated based on [place] [employer] guidelines (Standards of Medical Care in Diabetes 2016. Diabetes Care 2016; 39: S13-S22). Fasting blood glucose: Normal: 70-99 mg/dL Impaired fasting glucose (increased risk for diabetes or pre-diabetes): 100- 125 mg/dL Diabetes mellitus: >/=126 mg/dL Random blood glucose: Normal: 70-199 mg/dL Note: Random glucose >100 mg/dL is assoc iated with increased risk for diabetes Testing performed at [facility], [address] [place] [address] Specimen Anatomical Collection Method Collection Time Receive d Time (Source) Location / / Volume Laterality Blood 04/14/2022 10:19 04/14/2022 AM CDT 10:59 AM CDT Narrative MENNO - 04/14/2022 11:30 AM CDT Within 72 hours prior to each dose. Salazar Gay MD LAB BLOOD ORDERABLES Performing Organization Address City/State/ZIP Code [place] [address] [place] [address] Calcium Level (04/14/2022 10:19 AM CDT)Only the most recent of15 resultswithin the time period is included. athologist Signature Calcium Lvl 10.0 8.4 - 10.2 MENNO mg/dL Comment: Testing performed at [facility], [address] [place] [address] Specimen Anatomical Collection Method Collection Time Receive d Time (Source) Location / / Volume Laterality Blood 04/14/2022 10:19 04/14/2022 AM CDT 10:59 AM CDT [facility] - 04/14/2022 11:30 AM CDT Within 72 hours prior to each dose. Salazar Gay MD LAB BLOOD ORDERABLES Performing Organization Address City/[facility]/ZIP Code [place] [address] [place] [address] Albumin Level (04/14/2022 10:19 AM CDT)Only the most recent of13 resultswithin the time period is included. athologist Signature Albumin Lvl 3.8 3.5 - 5.2 MENNO gm/dL Comment: Testing performed at [facility], [address] [place] [address] Specimen Anatomical Collection Method Collection Time Receive d Time (Source) Location / / Volume Laterality Blood 04/14/2022 10:19 04/14/2022 AM CDT 10:59 AM CDT [facility] - 04/14/2022 11:30 AM CDT Within 72 hours prior to each dose. Salazar Gay MD LAB BLOOD ORDERABLES Performing Organization Address City/State/ZIP Code Phon e Number [place], [place] [id number] [place] [address] (ABNORMAL) Electrolyte Panel (04/14/2022 10:19 AM CDT)Only the most recent of15 resultswithin the time period is included. athologist Signature Sodium Lvl 134 (L) 136 - 145 MENNO mEq/L Comment: Testing performed at [facility], [address] [place] [address] Potassium Lvl 4.4 3.5 - 5.1 mEq/L [facility] Comment: Testing performed at [facility], [address] [place] [address] Chloride 99 98 - 107 mEq/L MENNO Comment: Testing performed at [facility], [address] [place] [address] 35446 CO2 27 22 - 29 mEq/L MENNO Comment: Testing performed at [facility], [address] [place] [address] Anion Gap 8 4 - 14 mEq/L MENNO Comment: Testing performed at [facility], [address] [place] [address] Specimen Anatomical Collection Method Collection Time Receive d Time (Source) Location / / Volume Laterality Blood 04/14/2022 10:19 04/14/2022 AM CDT 10:59 AM CDT Narrative MENNO - 04/14/2022 11:30 AM CDT Within 72 hours prior to each dose. Salazar Gay MD LAB BLOOD ORDERABLES Performing Organization Address City/State/ZIP Code Phon e Number [place], [place] [id number] [place] [address] Cortisol, Total (04/08/2022 11:08 AM CDT)Only the most recent of3 resultswithin the time period is included. athologist Signature Cortisol 14.20 4.80 - [facility] 19.50 [facility] mcg/dL Comment: Cortisol reference intervals are [...] MD LAB BLOOD ORDERABLES Performing Organization Address City/[facility]/ZIP Code Phon e Number [facility]CER Unless otherwise noted, [address] all lab tests performed by: Division of Pathology and Laboratory Medicine [address] [place] Phosphorus Level (04/08/2022 2:33 AM CDT)Only the most recent of3 resultswithin the time period is included. athologist Signature Phosphorus 2.6 2.5 - 4.5 [facility] mg/dL [facility] Specimen Anatomical Collection Method Collection Time Receive d Time (Source) Location / / Volume Laterality Blood 04/08/2022 2:33 AM 2 3:20 CDT AM CDT Juan F JUNIOR LAB BLOOD ORDERABLES Performing Organization Address City/[facility]/ZIP Code Phon e Number [facility] Unless otherwise noted, [address] all lab tests performed by: Division of Pathology and Laboratory Medicine [address] [place] (ABNORMAL) Hemoglobin (04/07/2022 5:16 PM CDT) athologist Signature Hgb 10.8 (L) 14.0 - 18.0 [facility] gm/dL [facility] Specimen Anatomical Collection Method Collection Time Receive d Time (Source) Location / / Volume Laterality Blood 04/07/2022 5:16 PM 2 5:23 CDT PM CDT Chacha JUNIOR LAB BLOOD ORDERABLES Performing Organization Address City/[facility]/ZIP [facility] Phon e Number [facility] Unless otherwise noted, [address] all lab tests performed by: Division of Pathology and Laboratory Medicine [address] [place] Sodium Urine (04/07/2022 3:26 PM CDT)Only the most recent of2 resultswithin the time period is included. athologist Signature U Sodium 76 mEq/L [facility] Comment: Normal range not available for collections less than 24 hours in duration. Specimen Anatomical Collection Method Collection Time Receive d Time (Source) Location / / Volume Laterality Urine 04/07/2022 3:26 PM 2 4:03 CDT PM CDT Parish Bass MD URINE ORDERABLES Performing Organization Address City/[facility] Phon e Number [facility] Unless otherwise noted, [address] all lab tests performed by: Division of Pathology and Laboratory Medicine [address] [place] Potassium Urine (04/07/2022 3:26 PM CDT) P athologist Signature U Potassium 23 mEq/L [facility] Comment: Normal range not available for collections less than 24 hours in duration. Specimen Anatomical Collection Method Collection Time Receive d Time (Source) Location / / Volume Laterality Urine 04/07/2022 3:26 PM 2 4:03 CDT PM CDT Parish Bass MD URINE ORDERABLES Performing Organization Address [facility] Phon e Number [facility] Unless otherwise noted, [address] all lab tests performed by: Division of Pathology and Laboratory Medicine [address] [place] Osmolality Urine (04/07/2022 3:26 PM CDT)Only the most recent of2 resultswithin the time period is included. P athologist Signature U Osmolality 346 50 - 1,400 [facility] mOsm/kg H2O [facility] Comment: Urinary osmolality may vary widely, [...] Bass MD URINE ORDERABLES Performing Organization Address City/[facility] Phon e Number [facility] Unless otherwise noted, [address] all lab tests performed by: Division of Pathology and Laboratory Medicine [address] [place] [address] [place] (ABNORMAL) Creatinine Urine (04/07/2022 3:26 PM CDT) athologist Signature U Creatinine 39.6 (L) 40.0 - [facility] 278.0 [facility] mg/dL Comment: The reference range listed is f or first morning urine collection. Specimen Anatomical Collection Method Collection Time Receive d Time (Source) Location / / Volume Laterality Urine 04/07/2022 3:26 PM 2 4:03 CDT PM CDT Parish Bass MD URINE ORDERABLES Performing Organization Address City/[facility]/ZIP Code Phon e Number [facility] CANCER Unless otherwise noted, [address] all lab tests performed by: Division of Pathology and Laboratory Medicine [address] [place] [address] Chloride Urine (04/07/2022 3:26 PM CDT) athologist Signature U Chloride 66 mEq/L [facility] Comment: Normal range not available for collections less than 24 hours in duration. Specimen Anatomical Collection Method Collection Time Receive d Time (Source) Location / / Volume Laterality Urine 04/07/2022 3:26 PM 2 4:03 CDT PM CDT Parish Bass MD URINE ORDERABLES Performing Organization Address City/State/ZIP Code Phon e Number [facility] CANCER Unless otherwise noted, [address] all lab tests performed by: Division of Pathology and Laboratory Medicine [address] [place] [address] MRI Pituitary with and without Contrast (04/07/2022 [...] evidence of pituitary hypophysitis. Elvin Diez MD IM MRI ORDERABLES General Laboratory Add-On Test (04/07/2022 1:39 PM CDT)Only the most recent of2 resultswithin the time period is included. [facility] gist Method Time Signature Ordered Test Added [facility] Test Needed total [facility] Specimen Anatomical Collection Method Collection Time Receive d Time (Source) Location / / Volume Laterality Existing 04/07/2022 1:39 PM 2 1:40 CDT PM CDT Chacha JUNIOR LAB BLOOD ORDERABLES Performing Organization Address City/State/ZIP Code Phon e Number [facility] CANCER Unless otherwise noted, [place] [address] [place] all lab tests performed by: Division of Pathology and Laboratory Medicine [address] (ABNORMAL) ACTH (04/07/2022 10:32 AM CDT)Only the most recent of2 resultswithin the time period is included. athologist Signature ACTH 69 (H) 7 - 63 [facility] pg/mL [facility] [place] Comment: Results greater than 1826 pg/mL may not be reliable due to matrix effect with extended dilution as it exceeds the calender let off helper's recommended limit. ACTH reference intervals are established [...] MD LAB BLOOD ORDERABLES Performing Organization Address City/[facility]/ZIP Code Phon e Number [facility] Unless otherwise noted, [address] all lab tests performed by: Division of Pathology and Laboratory Medicine [address] Prolactin (04/07/2022 10:32 AM CDT) [facility] Prolactin 8.6 4.0 - 15.2 [facility] ng/mL [facility] [place] Comment: Results greater than 4700.0 ng/ mL may not be reliable due to matrix effect with extended dilution as it exceeds the calender let off helper s recommended limit. Caution should be e xercised when interpreting such values and done in conjunction with clinical contex t. Specimen Anatomical Collection Method Collection Time Receive d Time (Source) Location / / Volume Laterality Blood 04/07/2022 10:32 04/07/2022 AM CDT 10:48 AM CDT Elvin Diez MD LAB BLOOD ORDERABLES Performing Organization Address City/[facility] Phon e Number [facility] CANCER Unless otherwise noted, [address] all lab tests performed by: Division of Pathology and Laboratory Medicine [address] (ABNORMAL) Sed Rate (04/07/2022 10:32 AM CDT) athologist [facility] Sed Rate 22 (H) 0 - 9 mm/hr [facility] Comment: Corrected results called to Rosalba Mensah [...] MD LAB BLOOD ORDERABLES Performing Organization Address City/[facility] Code Phon e Number [facility] CANCER Unless otherwise noted, [address] all lab tests performed by: Division of Pathology and Laboratory Medicine [facility] CRP (04/07/2022 10:32 AM CDT) athologist [facility] CRP 9.06 mg/L [facility] Comment: Reference ranges for HS CRP assay [...] MD LAB BLOOD ORDERABLES Performing Organization Address City/[facility] Phon e Number [facility] Unless otherwise noted, [address] all lab tests performed by: Division of Pathology and Laboratory Medicine [facility] [address] Testosterone Level (04/07/2022 10:32 AM CDT) athologist [facility] Testoster Tot 324 193 - 740 [facility] ng/[facility] Comment: Reference Ranges: Male: Age 20 - 49 249 - 836 Age >=50 1 93 - 740 Female: Age 20 - 49 8 - 48 Age >=50 3 - 41 Specimen Anatomical Collection Method Collection Time Receive d Time (Source) Location / / Volume Laterality Blood 04/07/2022 10:32 04/07/2022 AM CDT 10:48 AM CDT Elvin Diez MD LAB BLOOD ORDERABLES Performing Organization Address City/[facility] Phon e Number [facility] CANCER Unless otherwise noted, [address] all lab tests performed by: Division of Pathology and Laboratory Medicine [address] [place] [address] LH (04/07/2022 10:32 AM CDT) athologist Signature LH 7.8 1.7 - 8.6 [facility] Comment: Female Luteinizing Hormone Reference Ran ges: LOW HIGH Follicular 2.4 12.6 Ovulation 14.0 95.6 Luteal 1.0 11.4 Postmenopause 7.7 58.5 Specimen Anatomical Collection Method Collection Time Receive d Time (Source) Location / / Volume Laterality Blood 04/07/2022 10:32 04/07/2022 AM CDT 10:48 AM CDT Elvin Diez MD LAB BLOOD ORDERABLES Performing Organization Address [facility] Phon e Number [facility] Unless otherwise noted, [address] all lab tests performed by: Division of Pathology and Laboratory Medicine [address] [place] [address] FSH Level (04/07/2022 10:32 AM CDT) athologist Signature FSH 11.0 1.5 - 12.4 [facility] Comment: Female Follicle Stimulating Hormone Refe rence Ranges: L OW HIGH Follicular 3.5 12.5 Ovulation 4.7 21.5 Luteal 1.7 7.7 Postmenopause 25.8 134.8 Specimen Anatomical Collection Method Collection Time Receive d Time (Source) Location / / Volume Laterality Blood 04/07/2022 10:32 04/07/2022 AM CDT 10:48 AM CDT Elvin Diez MD LAB BLOOD ORDERABLES Performing Organization Address City/State/ZIP Code Phon e Number [facility] CANCER Unless otherwise noted, [address] all lab tests performed by: Division of Pathology and Laboratory Medicine [address] (ABNORMAL) Sodium Level (04/07/2022 1:56 AM CDT) P athologist Signature Sodium Lvl 127 (L) 136 - 145 [facility] mEq/L [facility] Specimen Anatomical Collection Method Collection Time Receive d Time (Source) Location / / Volume Laterality Blood 04/07/2022 1:56 AM 2 2:04 CDT AM CDT Juan F JUNIOR LAB BLOOD ORDERABLES Performing Organization Address City/State/ZIP Code Phon e Number [facility] CANCER Unless otherwise noted, [address] all lab tests performed by: Division of Pathology and Laboratory Medicine [address] Head without Contrast (04/07/2022 12:53 AM [...] cell carcino 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 I personally reviewed these image(s) joan ng with the resident's/fellow's interpretations, certify that if a procedure was performed I was physically present, and agree with the final report. Juan F JUNIOR IMG CT ORDERABLES (ABNORMAL) Osmolality (04/06/2022 9:18 PM CDT) P athologist Signature Osmolality 269 (L) 275 - 300 [facility] mOsm/kg H2O [facility] Comment: Units in mOsm per kg of water. Specimen Anatomical Collection Method Collection Time Receive d Time (Source) Location / / Volume Laterality Blood 04/06/2022 9:18 PM 9:24 CDT PM CDT Derik Winslow MD LAB BLOOD ORDERABLES Performing Organization Address City/State/ZIP Code Phon e Number [facility] CANCER Unless otherwise noted, [place] [address] CENTER all lab tests performed by: Division of Pathology and Laboratory Medicine [address] COVID-19 (SARS-CoV-2)Asymptomatic-LT (04/06/2022 9:05 PM CDT) [facility] Signature COVID19 Not Detected Not Detected JACOB REICH (SARS-CoV-2) [facility] COVID19 SARS Inpatient MD Indication Admission [facility] Covid 19 See Note MD Comment [facility] Comment: The antwon SARS-CoV-2 nucleic acid [...] fact sheet for patients provided by the calender let off helper ([employer]) can be reviewed at: https://www.fda.gov/media/454885/downloa d. A fact sheet for Health Care providers is provided by the calender let off helper ([employer]) and can be reviewed at: https://www.fda.gov/media/224526/download Results must be interpreted within the c [...] and high-complexity tests. The Microbiology Laboratory at [facility], CLIA Accreditation #[id number] a ms CAP Accreditation #[id number], verified the performance characteristics of this assay. Internal controls are used to monitor all stages of the test process. Specimen (Source) Anatomical Collection Method Collection Time Re ceived Time Location / / Volume Laterality Nasopharyngeal Swab 04/06/2022 9:05 04/06 PM CDT 9:13 PM CDT Derik Winslow MD MICROBIOLOGY - GENERAL ORDER HOSSEIN Performing Organization Address City/State/ZIP Code Phon e Number [facility] CANCER Unless otherwise noted, [place], [place] [id number] [place] [address] all lab tests performed by: Division of [...] Clean Dev Yes POC TELCOR Performing Lab [facility] POC TELCO R Comment: [facility] Clinical Lab, [facility], [place] [address]; Lab Direct or: Brandi Nguyen MD Specimen [...] WBC NOT SEEN 0 - 2 /HPF [facility] UA RBC >182 (H) 0 - 2 /HPF [facility] UA Mucous NOT SEEN Not [facility] Seen-Trace [facility] [place] /HPF UA Bacteria NOT SEEN NOT SEEN [facility] UA Squam Epi NOT SEEN None-Occas [facility] ional /[facility] Specimen Anatomical Collection Method Collection Time Receive d Time (Source) Location / / Volume Laterality Urine 04/06/2022 6:18 PM 2 6:32 CDT PM CDT Narrative [facility] - 2 6:47 PM CDT Some reporting parameters within the Urinalysis test have changed due to the implementation of new in strumentation in the [facility], allowi ng greater sensitivity of measurement. Urinalysis results reported by the [facility] using existing instrumentation, as well as Urinalysis t esting performed manually or by backup methodology at the [facility] will remain relatively unchanged. New reporting parameters and units will now be reported for all campuses. Radha Sanders MD URINE ORDERABLES Performing Organization Address City/State/ZIP Code Phon e Number [facility] Unless otherwise noted, [address] all lab tests performed by: Division of Pathology and Laboratory Medicine [address] [place] [address] aPTT (04/06/2022 6:18 PM CDT)Only the most recent of2 resultswithin the time period is included. athologist Signature aPTT 32.7 22.8 - 34.2 [facility](s) [facility] Specimen Anatomical Collection Method Collection Time Receive d Time (Source) Location / / Volume Laterality Blood 04/06/2022 6:18 PM 2 6:31 CDT PM CDT Radha Sanders MD LAB BLOOD ORDERABLES Performing Organization Address City/[facility]/ZIP [facility] Phon e Number [facility] CANCER Unless otherwise noted, [address] all lab tests performed by: Division of Pathology and Laboratory Medicine [address] (ABNORMAL) Urinalysis w/Microscopic if Indicated (04/06/2022 6:18 PM CDT)Only the most recent of3 resultswithin the time period is included. Analysis Performed At Patho logist Time Signature UA Color Red (A) [facility] UA Appear Bloody (A) Clear [facility] UA Glucose NEG NEG mg/dL [facility] UA Bili NEG NEG [facility] UA Ketones NEG NEG mg/dL [facility] UA Spec Grav 1.009 1.003 - [facility] 1.035 [facility] UA Blood Large (A) NEG [facility] Comment: Corrected from Moderate [ABN] o n 04/06/22 18:47:34 CDT by Mile Lord. UA pH 7.0 5.0 - 9.0 [facility] UA Protein 100 (A) NEG mg/dL [facility] UA Urobilinogen NEG NEG [facility] UA Nitrite NEG NEG [facility] UA Leuk Est NEG NEG [facility] Specimen Anatomical Collection Method Collection Time Receive d Time (Source) Location / / Volume Laterality Urine 04/06/2022 6:18 PM 2 6:32 CDT PM CDT Radha Sanders MD URINE ORDERABLES Performing Organization Address City/State/ZIP Code Phon e Number [facility] CANCER Unless otherwise noted, [place], [place] [id number] [place] [address] all lab tests performed by: Division of Pathology and Laboratory Medicine [address] (ABNORMAL) Prothrombin Time with INR (04/06/2022 6:18 PM CDT)Only the most recent of3 resultswithin the time period is included. P athologist Signature PT 15.4 (H) 11.9 - 14.1 [facility](s) CANCER CENTER INR 1.22 (H) 0.89 - 1.10 [facility] Specimen Anatomical Collection Method Collection Time Receive d Time (Source) Location / / Volume Laterality Blood 04/06/2022 6:18 PM 2 6:31 CDT PM CDT Radha Sanders MD LAB BLOOD ORDERABLES Performing Organization Address City/State/ZIP Code Phon e Number [facility] CANCER Unless otherwise noted, [address] all lab tests performed by: Division of Pathology and Laboratory Medicine [address] [place] [address] Urine Culture (04/06/2022 6:18 PM CDT)Only the most recent of3 resultswithin the time period is included. Component Value Ref Test Analysis Performed At [facility] gist Range Method Time [facility] Final Report No growth [facility] Path Review - The results have been review ed and electronically signed by Pathologist: MD Urine DERIK BERUMEN MD #[id number] A [facility] Specimen (Source) Anatomical Collection Method Collection Time Re ceived Time Location / / Volume Laterality Urine, Catherized 04/06/2022 6:18 022 7:41 Dan PM CDT PM CDT Radha Sanders MD MICROBIOLOGY - GENERAL ORDER HOSSEIN Performing Organization Address City/[facility]/ZIP Code Phon e Number [facility] Unless otherwise noted, [address] all lab tests performed by: Division of Pathology and Laboratory Medicine [address] [place] [address] LDH (04/06/2022 6:18 PM CDT) athologist [facility] LDH 195 135 - 225 [facility] U/L CANCER CENTER Comment: Results greater than 1651 U/L [...] MD LAB BLOOD ORDERABLES Performing Organization Address City/[facility]/ZIP Code Phon e Number [facility] CANCER Unless otherwise noted, [address] all lab tests performed by: Division of Pathology and Laboratory Medicine [address] [place] [address] Pathology Surgical Interpretation (03/31/2022 4:28 PM CDT)Only the most recent of2 resultswithin the time period is included. Component Value Ref Test Analysis Performed Pathologis t Range Method Time At [facility] Submitted Bladder cancer 04/02/2022 [facility] Clinical [C67.9] 10:40 AM History CDT Diagnosis A. Urinary bladder, right la teral bladder wall, prior site of resection: 04/02/2022 [facility] Electronically UROTHELIAL CARCINOMA, HIGH GRADE, INVASIVE INTO LAMINA PROP FABRIZIO. 10:40 AM signed by Muscularis propria present and uninvolved by tumor. CDT Jose Enrique Richmond MD No definitive lymphovascular invasion present. on 04/02/2022 at 10:40 AM CCG Gross A: 04/02/2022 [facility] Description Urinary bladder, right later al bladder wall, prior site of resection - or 27: Multiple rubbery doyle-pink to red-brown partially cauterized fragments of tissue measuring 2.4 x 1.5 x 0.3 cm in aggregate, entirely submitted in A1- A2. GM 10:40 AM CDT Biomarker A1 04/02/2022 [facility] Block(s) 10:40 AM CDT Disclaimer "Some tests 04/02/2022 [facility] reported here may 10:40 AM have been CDT developed and performance characteristics determined by MD [place] [facility]. These tests have [...] Organization Address City/State/ZIP Code Phon e Number [facility] [place] [address] [address] COVID-19 (SARS-CoV-2) PCR-Asymptomatic (03/28/2022 11:03 AM CDT) [facility] gist Method Time [facility] COVID19 (SARS Not Detected Not Detected JACOB REICH CoV-2) [facility] Comment: This test is a qualitative reverse-trans criptase polymerase chain reaction (RT- PCR) developed for the [employer] system and intended for qualitative detection of SARS CoV-2 RNA in nasopharyngeal a nd oropharyngeal swab specimens collecte d from any individuals, including those suspected o f COVID-19 by their healthcare provider, and those without symptoms or other reasons to suspect COVID-19. A fact sheet for patients provided by the calender let off helper ( [employer]) can be rev iewed at: https://www.fda.gov/media/601469/downloa d. A fact sheet for Health Care providers is provided by the calender let off helper ([employer]) and can be reviewed at: https://www.fda.gov/media/745723/download Results must be interpreted within the c [...] were verified by the Microbiology Laboratory at [facility] [place], CLIA Accreditation #: [id number] and CAP Accreditation #: [id number]. COVID19 SARS Source [employer] Swab MD MD [facility] COVID19 SARS Indication Pre-OR Procedure [facility] Specimen (Source) Anatomical Collection Method Collection Time Re ceived Time Location / / Volume Laterality Nasopharyngeal Swab 03/28/2022 11:03 06/2 01/2022 AM CDT 12:48 PM CDT Cassie Vizcaino MD MICROBIOLOGY - GENERAL ORDER HOSSEIN Performing Organization Address City/[facility]/ZIP Code Phon e Number [facility] CANCER Unless otherwise noted, [address] all lab tests performed by: Division of Pathology and Laboratory Medicine [address] [place] [address] Clot Expiration Date (03/28/2022 10:54 AM CDT)Only the most recent of2 results within the time period is included. [facility] Signature T & S 03/31/2022 [facility] Specimen Anatomical Collection Method Collection Time Receive d Time (Source) Location / / Volume Laterality Blood 03/28/2022 10:54 03/28/2022 3:03 AM CDT PM CDT Umm JUNIOR BLOOD BANK TEST ORDERABLES Performing Organization Address City/[facility] Phon e Number [facility] CANCER Unless otherwise noted, [address] all lab tests performed by: Division of Pathology and Laboratory Medicine [address] [place] [address] TMP Interpretation Antibody Screen Negative (03/28/2022 10:54 AM CDT)Only the most recent of2 resultswithin the time period is included. [facility] TMP Auto Neg At the [facility] patient plasma shows no evidence of RBC alloantibodi es. Comment: [place]o [place]E [id number] Dictated by: MD Galileo DOE Dictated Date/Time: 03.29.2022 13:38 PM CDT Transcribed Date/Time: 03.29.2022 13:38 PM CDT Electronically Signed By: MD Galileo DOE on 03.29.2022 13:38 PM Specimen Anatomical Collection Method Collection Time Receive d Time (Source) Location / / Volume Laterality Blood 03/28/2022 10:54 03/28/2022 3:03 AM CDT PM CDT Umm E Shed PA BLOOD BANK TEST ORDERABLES Performing Organization Address City/State/ZIP Code Phon e Number [facility] CANCER Unless otherwise noted, [address] all lab tests performed by: Division of Pathology and Laboratory Medicine [address] ABORh (03/28/2022 10:54 AM CDT)Only the most recent of2 resultswithin the time period is included. athologist Signature ABORh. A POS [facility] Specimen Anatomical Collection Method Collection Time Receive d Time (Source) Location / / Volume Laterality Blood 03/28/2022 10:54 03/28/2022 3:03 AM CDT PM CDT Umm Mccann PA BLOOD BANK TEST ORDERABLES Performing Organization Address City/[facility]/ZIP Code Phon e Number [facility] CANCER Unless otherwise noted, [address] all lab tests performed by: Division of Pathology and Laboratory Medicine [facility] Antib[facility] Screen (03/28/2022 10:54 AM CDT)Only the most recent of2 resultswithin the time period is included. athologist [facility] ABSC. Negative ABSC [facility] Specimen Anatomical Collection Method Collection Time Receive d Time (Source) Location / / Volume Laterality Blood 03/28/2022 10:54 03/28/2022 3:03 AM CDT PM CDT Umm Chilel Shed PA BLOOD BANK TEST ORDERABLES Performing Organization Address City/[facility]/ZIP Code Phon e Number [facility] CANCER Unless otherwise noted, [address] all lab tests performed by: Division of Pathology and Laboratory Medicine [facility] Ferritin (03/18/2022 1:56 PM CDT) [facility] Ferrit[facility] Lvl 37 30 - 400 MENNO ng/mL Comment: Testing performed at [facility], [address] [place] [address] Specimen Anatomical Collection Method Collection Time Receive d Time (Source) Location / / Volume Laterality Blood 03/18/2022 1:56 PM 2 1:56 CDT PM CDT Bria Blackwood 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 LAB BLOOD ORDERABLES Performing Organization Address City/State/ZIP Code [place] [address] [place] [address] (ABNORMAL) Vitamin B12 Level (03/18/2022 1:56 PM CDT) Analysis Performed At Patho logist Time Signature Vitamin B12 1,346 (H) 211 - 946 MENNO Lvl pg/mL Comment[facility] [facility], [address] [place] [address], [place] [address] Specimen Anatomical Collection Method Collection Time Receive d Time (Source) Location / / Volume Laterality Blood 03/18/2022 1:56 PM 2 1:56 CDT PM CDT Bria Blackwood 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 LAB BLOOD ORDERABLES Performing Organization Address City/[facility]/ZIP Code [place] [address] [place] [address] CT Abdomen Pelvis with and without Contrast [...] in the abdomen or pelvis. Umm JUNIOR Monica CT ORDERABLES (ABNORMAL) POC Creatinine (02/18/2022 7:49 [...] Clean Dev Yes POC TELCOR Performing Lab [facility] POC TELCO R Comment: [facility] luci REICH Josh-Clinical Care [facility] ,[address] [place] [address], Point of Care Camp Coordinator: Kandace Taylor MD Specimen Anatomical Collection Method Collection Time Receive d Time (Source) Location / / Volume Laterality Blood 02/18/2022 7:49 AM 7:49 CDT AM CDT Leonard Giraldo MD POCT ORDERABLES - DEVICE Performing Organization Address City/State/ZIP Code Phon e Number POC TELCOR COVID-19 (CONNER-CoV-2) PCR Asymptomatic (02/17/2022 11:16 AM CDT) Component Value Ref Range Test Analysis Performed Pathologis t Method Time At Signature COVID19 SARS Pre-OR Procedure UT Indication [facility] COVID19 SARS Not Detected Not [place] Result Detected [facility] COVID19 SARS SARS-CoV-2 NOT Detected. MD Interpretation [place] Reference Range: Not Detected [facility] Methodology: The Paez Real Time SARS-CoV-2 assay is a qualitative real-time reverse volcanology professor polymerase chain reaction (fixture repairer fabricator-PCR) test to detect RNA from SARS-CoV-2 in nasal, nasopharyngeal and oropharyngeal swabs from patients with signs and symptoms of infection who ar e suspected of COVID-19 by their health care provider. The Paez RealTime SARS-CoV-2 performed on the [id number] System is a dual target assay with [...] high- complexity Molecular Diagnostics Laboratory (MDL) at [facility] under the Food and Drug Administration (FDA) s Emergency Use Authorization. Factsheet for patients: https://www.[facility].org/AbbottFac tSheetPatients Factsheet for healthcare pro viders: https://www.[facility].org/AbbottFactSheetHCP Test performed by: [facility] Molecular Diagnostic Lab [address] [place] [address] Specimen (Source) Anatomical Collection Method Collection Time Re ceived Time Location / / Volume Laterality Nasopharyngeal Swab 02/17/2022 11:16 05/1 03/2022 AM CDT 1:08 PM CDT Cassie Vizcaino MD MICROBIOLOGY - GENERAL ORDER HOSSEIN Performing Organization Address City/State/ZIP Code Phon e Number MD MD [facility] Unless otherwise noted, [place] [address] [place] all lab tests performed by: Division of Pathology and Laboratory Medicine [address] [place] Hemoglobin A1c (02/17/2022 10:51 AM CDT) athologist Signature A1C 5.1 4.3 - 5.6 % MENNO Comment: HbA1c values >=6.5% are diagnostic of di abetes mellitus. Diagnosis should be confirmed by repeat testing. Therapeutic Action suggested: >8.0% HbA1 c; Goal of therapy: <7.0% HbA1c [facility], [address] [place] [address] Specimen Anatomical Collection Method Collection Time Receive d Time (Source) Location / / Volume Laterality Blood 02/17/2022 10:51 02/17/2022 AM CDT 10:52 AM CDT Umm JUNIOR LAB BLOOD ORDERABLES Performing Organization Address City/[facility]/ZIP Code Phon e Number [facility] [place], [place] [id number] [place] [address] Abdomen and Pelvis (01/26/2022 3:12 [...] Signature Uric Acid 5.7 3.4 - 7.0 MD MD [facility] mg/dL [facility] Specimen Anatomical Collection Method Collection Time Receive d Time (Source) Location / / Volume Laterality Blood 01/01/2022 9:58 AM CDT 10:06 AM CDT Nicolette GARRIDO LAB BLOOD ORDERABLES Performing Organization Address City/State/ZIP Code Phon e Number MD MD [facility] Unless otherwise noted, [place] [address] CENTER all lab tests performed by: Division of Pathology and Laboratory Medicine [address] [place] (ABNORMAL) T3 (01/01/2022 9:58 AM CDT) P athologist Signature T3 Total 76 (L) 80 - 200 [facility] ng/dL CANCER CENTER Specimen Anatomical Collection Method Collection Time Receive d Time (Source) Location / / Volume Laterality Blood 01/01/2022 9:58 AM CDT 10:22 AM CDT Nicolette Morataya ANP LAB BLOOD ORDERABLES Performing Organization Address City/State/ZIP Code Phon e Number [facility] CANCER Unless otherwise noted, [place] [address] [place] all lab tests performed by: Division of Pathology and Laboratory Medicine [address] [place] [address] Brain (12/30/2021 3:17 PM CDT) Specimen (Source) Anatomical Location Collection Method / Collectio n Time Received Time / Laterality Volume Narrative Systemgenerated, Documentation - 022 3:18 PM CDT Study acquired at another institution. For comparison only. No Josh originated interpretation requested or a vailable. Leonard DICKG OUTSIDE IMAGE ORDERABLES OSI CT Chest (12/30/2021 3:13 PM CDT) Specimen (Source) Anatomical Location Collection Method / Collectio n Time Received Time / Laterality Volume Narrative Systemgenerated, Documentation - 022 3:14 PM CDT Study acquired at another institution. For comparison only. No MD [facility] originated interpretation requested or a vailable. Leonard Giraldo MD IMG OUTSIDE IMAGE ORDERABLES Echocardiogram 2D Complete (12/23/2021 [...] volumes were not performed in this st y. Cardiac Mechanics/Speckle Tracking Imagi ng: Normal global [...] Normal = 100 Normal global longitudinal peak sy stolic value. X - Cannot 1 - Normal 2 - 3 - Akinetic 4 - Dyskinetic Interpret Hypokinetic 5 - Aneurysmal 3D imaginD volumes were not performed in this [facility]. Cardiac Mechanics/Speckle Tracking Imagi ng: Normal [...] 31.7 ml LVOT area: 4.4 cm2 EF(MOD-A4C): 67. 5 % EDV(MOD-A2C): 86.6 ml ESV(MOD-A2C): 30.9 ml [...] A max cassie: 32.6 cm/sec MV max PG : 4.0 mmHg MV E/A: 2.0 MV V2 mean: 47.4 cm/sec MV mean P.2 mmHg MV V2 VTI: 24.4 cm MVA(VTI): 4.4 cm2 MV dec time: 0.11 sec Ao V2 max: 195. 8 cm/sec Ao max P.3 mmHg Ao V2 mean: 121.2 cm/sec Ao mean P.7 mmHg Ao V2 VTI: 38.7 cm BRYAN(I,D): 2.8 cm2 BRYAN(V,D): 2.6 cm2 LV V1 max P.5 mmHg SV(LVOT): 106 .7 ml LV V1 mean P.5 mmHg LV [...] (lat): 3.1 E/e' (sept): 4.5 66 Nicolette Morataya ANP CV ECHO ORDERABLES Performing Organization Address [...] Small loculated left pleural effusion. Lauren Pleitez [facility] IMG DIAGNOSTIC IMAGING ORDER HOSSEIN PETCT Subsequent Treatment Strategy (12/09/2021 11:36 AM TEA LEAF READER) Anatomical Region Laterality Modality Whole Body Positron Emission To mography (PET) Specimen (Source) Anatomical Collection Method Collection Time Re ceived Time Location / / Volume Laterality 12/09/2021 12:22 PM TEA LEAF READER Impressions 12/09/2021 12:43 PM TEA LEAF READER Increase in size and FDG avidity of the tumor recurrence in the left lung adjacent to the sutures. New small to moderate right pleural effusion. New FDG avid focus in the free wall of the left ventricle of uncertain etiology. Increase in size of the solid right renal lesion suspicious for renal neoplasm. Narrative 12/09/2021 12:43 PM TEA LEAF READER FULL RESULT: Examination: FDG PET/CT, 12/09/2021 11:36 [...] PETCT ORDERABLES OSI Chest (11/19/2021 3:19 PM TEA LEAF READER) Specimen (Source) Anatomical Location Collection Method / Collectio n Time Received Time / Laterality Volume Narrative Systemgenerated, Documentation - 022 3:19 PM CDT Study acquired at another institution. For comparison only. No MD [facility] originated interpretation requested or a vailable. Leonard Giraldo MD IMG OUTSIDE IMAGE ORDERABLES CT Chest with Contrast (10/15/2021 9:56 AM TEA LEAF READER)Only the most recent of2 results within the time period is included. Anatomical Region Laterality Modality Chest Computed Tomography Specimen (Source) Anatomical Collection Method Collection Time Re ceived Time Location / / Volume Laterality 10/15/2021 10:12 AM TEA LEAF READER Impressions 10/15/2021 11:13 AM TEA LEAF READER * Stable pulmonary nodule at the resection [...] the final report. Narrative 10/15/2021 11:13 AM TEA LEAF READER FULL RESULT: Examination: CT CHEST W CONTRAST, [...] ORDERABLES Pathology Biopsy Interpretation (09/30/2021 8:31 AM TEA LEAF READER)Only the most recent of2 resultswithin the time period is included. Component Value Ref Test Analysis Performed Pathologis t Range Method Time At Signature Submitted Basal cell carcinoma of anterior chest [C44.519] 10/02/2021 [facility] Clinical Basal cell carcinoma of back [C44.519] 1 2:54 PM History TEA LEAF READER Diagnosis A: Skin, right chest, ellipse: [facility] Electronically Skin and subcutis with healing surgical wound/scar. 12:54 PM signed by BASAL CELL CARCINOMA, NODULA R AND SUPERFICIAL PATTERNS, PIGMENTED, INKED MARGINS ARE FREE. TEA LEAF READER Priyadhars ini Background actinic changes and folliculitis. MD Calvin on See comment. 021 at 12:54 PM B: Skin, central back, ellipse: Skin and subcutis with healing surgical wound/scar. BASAL CELL CARCINOMA, SUPERF ICIAL AND EARLY NODULAR PATTERNS, MARGINS ARE FREE. Diffuse background actinic changes and folliculitis. See comment. Comment A & B: Multiple 10/02/2021 [facility] additional deeper 12:54 PM tissue sections TEA LEAF READER have been cut and examined. Gross A: 10/02/2021 [facility] Description Skin, right chest: A doyle, rick irbearing, irregular skin excision measuring 2.6 x 1.6 cm and excised to a depth 0.9 cm. There is a suture attached at 1 tip without designation and will be assigned at the 1 12:54 PM 2 o'clock position. The spec imen is serially sectioned, entirely submitted sequentially in A1-A6. ET TEA LEAF READER INK CODE: From 12-3-6 o'clock, blue; from [...] (2 pieces), remainder Disclaimer "Some tests 10/02/2021 [facility] reported here may 12:54 PM have been TEA LEAF READER developed and performance characteristics determined by [facility] Pathology and Laboratory Medicine. These tests have not been specifically cleared or approved by the U.S. Food and Drug Administration. If applicable, controls were reviewed and showed appropriate reactivity." Specimen Anatomical Collection Method Collection Time Receive d Time (Source) Location / / Volume Laterality Tissue (Skin) 09/30/2021 8:31 AM 09/30/20 21 2:25 TEA LEAF READER PM TEA LEAF READER Tissue (Skin) 09/30/2021 8:32 AM 09/30/20 21 2:25 TEA LEAF READER PM TEA LEAF READER Claudia Stein MD LAB PATHOLOGY ORDERABLES Performing Organization Address City/State/ZIP Code Phon e Number [facility] [place] [address] [address] [facility] 4. Excision of a nodular basal cell carcinoma located on the central back (09/30/2021 8:30 AM TEA LEAF READER) Claudia Hernández MD - 09/30/2021 8:30 A M TEA LEAF READER Claudia Stein MD 10/08/2021 7:39 PM 4. Excision of a nodular basal cell ca rcinoma located on the central back Date/Time: 09/30/2021 8:30 AM Consent obtained: yes [place] Protocol (Time-out) performed: yes Provider Information Authorized by: Claudia Stein MD Performed by: Claudia Stein MD Supervising Physician: Claudia Stein MD Additional Surgeon: Odette Moore MD Flask Cleaner present?: yes Flask Cleaner: Nikolas Pyle MD Patient Diagnosis Clinical preoperative [...] draped in the nor mal fashion. The [place] Protocol was completed. An elliptical incision was [...] on the right chest (09/30/2021 8:29 AM TEA LEAF READER) Claudia Hernández MD - 09/30/2021 8:29 A M TEA LEAF READER Claudia Stein MD 10/08/2021 7:39 PM 3. Excision of a nodular basal cell ca rcinoma located on the right chest Date/Time: 09/30/2021 8:29 AM Consent obtained: yes [place] Protocol (Time-out) performed: yes Provider Information Authorized by: Claudia Stein MD Performed by: Claudia Stein MD Supervising Physician: Claudia Stein MD Additional Surgeon: Odette Moore MD Flask Cleaner present?: yes Flask Cleaner: Nikolas Pyle MD Patient Diagnosis Clinical preoperative [...] draped in the nor mal fashion. The [place] Protocol was completed. An elliptical incision was [...] located on the left forehead (09/30/2021 8:29AM TEA LEAF READER) Claudia Hernández MD - 09/30/2021 8:29 A M TEA LEAF READER Claudia Stein MD 10/08/2021 7:39 PM 2. Mohs-assisted excision of a squamou s cell carcinoma located on the left forehead Date/Time: 09/30/2021 8:29 AM Surgeon Authorized by: Claudia Stein MD Performed by: Claudia Stein MD Supervising Surgeon: Claudia Stein MD Additional Surgeon: Odette Moore MD Flask Cleaner: Nikolas Pyle MD Location Location: Left forehead [...] fashion. Local anesthesia was administer ed. The [place] Protocol was completed. The discernible tumor was e xcised as a horizontal layer with the Mohs technique. Hemostasis was obtai ludy and patient was bandaged. The tissue was precisely mapped, marked, monse ssly sectioned and submitted for fresh-frozen, horizontal processing. Hem atoxylin and eosin-stained histologic sections were evaluated by leonardo e surgeon. This process was repeated until the end of the procedure. Tumor Histology Significant histologic findings were pre sent in stages 1 through 1. 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 Case: [id number] Stage 1: Tumor was present Number of [...] the left temporal scalp (09/30/2021 8:29 AM TEA LEAF READER) Claudia Hernández MD - 09/30/2021 8:29 A M TEA LEAF READER Claudia Stein MD 10/08/2021 7:39 PM 1. Mohs-assisted excision of a squamou s cell carcinoma located on the left temporal scalp Date/Time: 09/30/2021 8:29 AM Surgeon Authorized by: Claudia Stein MD Performed by: Claudia Stein MD Supervising Surgeon: Claudia Stein MD Additional Surgeon: Odette Moore MD Flask Cleaner: Nikolas Pyle MD Location Location: Left temporal [...] fashion. Local anesthesia was administer ed. The [place] Protocol was completed. The discernible tumor was [...] stages 1 through 1 (Normal skin). Case: [id number] Stage 1: No tumor was present at [...] MD [facility] [address] [facility], [address] [place] [address] Claudia Stein MD DERM PROCEDURE ORDERABLES CT [...] disease. Nicolette GARRIDO IMG CT ORDERABLES after 06/03/2021 Insurance Payer Benefit Plan / Subscriber ID Effective Phone Address T ype Group Dates [employer] MEDICARE [id number] 2017-Prese [address] [address] Medicare HEALTHCARE ADVANTAGE [place], [place] [employer] [id number] Advance Directives Code Status Date Activated Date Inactivated Comments Full Code 04/06/2022 9:00 PM 04/08/2022 7:36 PM Full Code 03/31/2022 7:06 PM 03/31/2022 9:24 PM Full Code 02/19/2022 12:59 PM 02/20/2022 1:19 PM Full Code 03/01/2021 8:56 PM 03/03/2021 4:01 PM Full Code 12/15/2019 10:10 AM 12/17/2019 3:34 PM Care Teams Coater [employer] Paper Relationship Specialty Start Date End Date Leonard Giraldo MD PCP - General 12/05/[address] [place] [id number] Torey Martins MD PCP - External Referring 06/01/[address] [place] [phone] Torey Martins MD PCP - External Follow Up A 06/01/[address] [place] [phone] Claudia Stein MD PCP - External Follow Up C Dermatology 03/20/[address] [place] [id number] Leonard Giraldo MD Physician 12/12/[address] [place] [id number]
[2022-06-03] MEDS ORDERED: SCOPOLAMINE HYDROBROMIDE PATCH TD SCH (12:15)
--- OUTSIDE RECORDS SUMMARY | 2022-06-03 12:17 | XMS REPORT | Continuity of Care Document ---
:1935 Author Organization [facility] [place] [facility] t Address [address] [place] [address] Care Team Providers Name Role Phone Enzo REICH Leonard Primary Care Physician SYSTEM, PROVIDER NOT IN Attending Clinician Unavailable Jerod TIM, Gabriel August Attending Clinician Nicolette Billings Attending Clinician Ricardo Mcclelland Attending Clinician Wilian RN, Rosalia Attending Clinician Unavailable Morris RN, Alonso Attending Clinician Unavailable Parish Bass MD Attending Clinician Lanny Vizcaino MD Attending Clinician Freda REICH, Kyle Curtis Attending Clinician Kaitlin Thompson MD, V. Attending Clinician Eileen Singh PharmD Attending Clinician Unavailable KAITLIN THOMPSON V. Attending Clinician Unavailable Bria Blackwood APN Attending Clinician Derik Winslow MD Attending Clinician Elvin Diez MD Attending Clinician Nayeli REICH, Sae Attending Clinician Aaron REICH, Ren Attending Clinician Valerie TIM, Loren Marie Attending Clinician Unavailable Axel TIM, Nicolette Monet Attending Clinician Unavailable Placido TIM, Karine Oakes Attending Clinician Chris REICH, Alberto Ivory Attending Clinician [phone] Darryl DOMINGO, Saige N Attending Clinician Unavailable Isac MANTILLAN, Lenka Solano Attending Clinician Tao DOMINGO, Samuel Attending Clinician Unavailable RAMY, RICARDO Chille Attending Clinician Unavailable King RN, Marii Shaikh Attending Clinician Hans GuamanD, Vijaya Attending Clinician Tangela REICH, Sera Attending Clinician Vivek REICH, Chi Rosas. Attending Clinician Sirisha HANNON, Stacie Attending Clinician [phone] Leny JUNIOR, Jonah Murray Attending Clinician Enzo REICH, Leonard Attending Clinician Cr TIM, Joel Rosas Attending Clinician Unavailable Luis POWELL, Sally Anderson Attending Clinician Darwin REICH, Jeffry Attending Clinician Pricilla OVEN OPERATOR AUTOMATIC, Lauren Attending Clinician Maicol REICH, Rosita Attending Clinician Thomas MEDICAL PARASITOLOGIST, Liudmila Oakes Attending Clinician Poonam REICH, Shayy Attending Clinician NICOLETTE MOSHER Attending Clinician Unavailable Emil REICH, Claudia Attending Clinician Sweta TIM, Radha Attending Clinician Unavailable Jonh REICH, Elvie Oakes Attending Clinician Unavailable Elza REICH, Nahed Attending Clinician Nishant PharmD, Alejandro Attending Clinician Wellington PharmD, Annalise Will Attending Clinician [phone] Cedric RN, [facility] Attending Clinician CLAUDIA ROGERS Attending Clinician Unavailable CARLOS WILL Attending Clinician Unavailable LIEN JOHNSON Attending Clinician Unavailable DERIK WINSLOW Admitting Clinician Unavailable LANNY VIZCAINO Admitting Clinician Unavailable Payers Payer Name Policy Type Policy Number Effective Date Expiration Date S ource Problems Condition Condition Condition Status Onset Resolution Last Treating Co mments Source Name Details Category Date Date Treatment Clinician Date Gross Gross Disease Active Univers hematuria hematuria 7- ity of 00:00: [facility] Acute Acute Disease Active [facility] retention retention 04-06 ity of of urine of urine 00:00: [facility] Bladder Bladder Disease Active Overview: [facility] [place] [facility] ers cancer cancer 6-16 Formattin ity of 00:00: g of this note might be Anderso different n from the Cancer original. Center Added automatic ally from request for surgery [id number] Anemia Anemia Disease Active Univers 5-16 ity of 00:00: [facility] Mass of Mass of Disease Active Overview: [facility] [place] [facility] ers urinary urinary -16 Formattin ity o f bladder bladder 00:00: g of this note might be Anderso different n from the Cancer original. Center Added automatic ally from request for surgery [id number] Pleural Pleural Disease Active Last Univers effusion effusion 3-21 Assessmen ity of 00:00: t & Plan: Formatblair REICH g of this Andgriso note n might be Cancer different Center from the original. Right pleural effusion has resolved and it was most likely caused by fluid overload. No need for intervent ion at this time. Chronic Chronic Disease Active Last Univers obstructiv obstructiv 5-29 Assessmen ity of e e 00:00: t & Plan: [place] pulmonary pulmonary 00 Formattin M D disease disease g of this Scar so note n might be Cancer different Center from the original. No clinical evidence of exacerbat ion. Continue with Trelegy Ellipta one puff daily. 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 00:00[place] 00 [place] [facility] Hypertensi Hypertensi Disease Active U nivers on on 12-14 ity of 00:00: MD [facility] 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 Center [...] the care of his local physician . 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 00:00: Medi ruperto 00 Center HTN HTN Disease Active [facility] (hypertens (hypertens 5-25 Akila kes ion) ion) 00:00: Medical 00 Center Atrial Atrial Disease Active [facility] fibrillati fibrillati 5-25 Akila kes on on 00:00: Medical 00 Center Chronic Chronic Disease Active [facility] renal renal 5-25 [facility] failure failure 00:00: Medical 00 Center Anticoagul Anticoagul Disease Active U nivers ation not ation not ity of tolerated tolerated [facility] Allergies, Adverse Reactions, Alerts Allergy Allergy Status Severity Reaction(s) Onset Inactive Treating Comm ents Source Name Type Date Date Clinician Etodolac Propensi Active Rash Luigi s ty to 06-16 ity of adverse 00:00: [place] reaction 00 [facility] ETODOLAC DRUG Active Low Rash INGREDI 9-12 Anderso 00:00: n 00 ETODOLAC [...] INGREDI 9-12 Anderso 00:00: n 00 Etodolac Drug Active Rash 2016-[address] [facility] Allergy 5-17 [facility] 00:[facility]: [facility] 00 Center Family History Family Member Diagnosis Comments Start Date Stop Date Source Natural [facility] [place] Natural brother [facility] Granddaughter -Other cancer [facility] [place] [facility] [place] Natural father Heart disease [facility] Natural mother Diabetes [facility] Natural mother Heart disease [facility] Social History Social Habit Start Date Stop Date Quantity Comments Source History of tobacco Cigarette Smoker [facility] MD [facility] Cancer Center History SDOH University o f Alcohol Frequency [facility] Cancer [place] History SDOH University o f Alcohol Std Drinks [place] [facility] History SDOH University o f Alcohol Binge [place] MD An [facility] Exposure to 2022-05-11 2022-05-21 Not sure University of SARS-CoV-2 (event) 00:00:00 09:23:00 [facility] Alcohol intake 2022-04-02 2022-04-02 Current drinker Unive rsity of 00:00:00 00:00:00 of alcohol Fitz savage (finding) [facility] Tobacco use and 2018-10-27 2018-10-27 Former smokeless Uni versity of exposure 00:00:00 00:00:00 tobacco user Fitz Dietz [facility] History SDOH 2016-06-16 2016-06-16 [facility] o f Alcohol Comment 00:00:00 00:00:00 [facility] Tobacco Comment 2016-06-16 2016-06-16 quit at age 51 Unive rsity of 00:00:00 00:00:00 Fitz savage [facility] Cigarettes smoked 2016-02-19 2016-02-[address] [facility] current (pack per 00:00:00 00:00:00 Medical Center day) - Reported Cigarette 2016-02-19 2016-02-[address] [facility] pack-years 00:00:00 00:00:00 [facility] Sex Ass[birth year] At [birth year] Universit y of 00:00:00 00:00:00 Fitz savage [facility] Smoking Status Start Date Stop Date Source Ex-smoker 2018-10-27 00:00:00 2018-10-27 00:00:00 Universi ty of [facility] Medications Ordered Filled Start Stop Current Ordering Indication Dosage Frequency Signature Comments Components Source Medication Medication Date Date Medication? Clinician (SIG) Name Name atorvastati Yes 40mg Take 40 mg Univers n (LIPITOR) 8-18 by mouth ity of 40 mg 09:28: at [place] tablet 20 bedtime. MD Gigi sol [facility] finasteride Yes 5mg Take 5 mg U nivers (PROSCAR) 5 8-18 by mouth ity of mg tablet 09:28: daily. [place] 20 MD Gigi sol [facility] fluticasone Yes 2{spray Inhale 2 Univers propionate 8-18 } sprays ity of (FLONASE) 09:28: into each Jared as 51 20 nostril MD durant/spray daily. Anderso nasal spray [facility] cholecalcif Yes 1{tbl} Take 1 Un pat binh, 8-18 tablet by ity of vitamin D3, 09:28: mouth Fitz (VITAMIN D3 20 daily. ORAL) [facility] ator[facility] Yes 40mg Take 40 mg Univers n (LIPITOR) 8-18 by mouth ity of 40 mg 09:28: at [place] tablet 20 bedtime. MD Gigi sol [facility] finasteride Yes 5mg Take 5 mg U nivers (PROSCAR) 5 8-18 by mouth ity of mg tablet 09:28: daily. [place] 20 MD Yu [facility] fluticasone Yes 2{spray Inhale 2 Univers propionate 8-18 } sprays ity of (FLONASE) 09:28: into each Jared as 51 20 nostril MD mcg/spray daily. Anderso nasal spray [facility] cholecalcif Yes 1{tbl} Take 1 Un pat binh, 8-18 tablet by ity of vitamin D3, 09:28: mouth [place] (VITAMIN D3 20 daily. ORAL) [facility] ciprofloxac 2021- No Bladder 500mg Take 1 Univers in HCl 05-14- cancer tablet ity of (Cipro) 500 00:00: 00:00 (500 mg) [place] mg tablet 00 :00 by mouth once for 1 Anderso dose. Take n one pill 6 Cancer hours Center after each weekly instillati on. ciprofloxac 2021- No Bladder 500mg Take 1 Univers in HCl 8- cancer tablet ity of (Cipro) 500 00:00: 00:00 (500 mg) [place] mg tablet 00 :00 by mouth once for 1 Anderso dose. Take n one pill 6 Cancer hours Center after each weekly instillati on. amoxicillin Yes Bladder 500mg Take 1 Univers -clavulanat 7-29 cancer tablet ity of e 00:00: (500 mg) [place] (Augmentin) 00 by mouth 500 mg-125 once a Anderso mg per week. Take n tablet one pill 6 Cancer hours Center after each weekly BCG instillati on. amoxicillin Yes Bladder 500mg Take 1 Univers -clavulanat 05-02 cancer tablet ity of e 00:00: (500 mg) [place] (Augmentin) 00 by mouth MD 500 mg-125 once a Anderso mg per week. Take n tablet one pill 6 Cancer hours Center after each weekly BCG instillati on. apixaban Yes Hyposmolali 2.5mg Take 1 Univers (ELIQUIS) 04-14 ty and/or tablet ity of 2.5 mg 00:00: hyponatremi (2.5 mg) [place] tablet 00 a by mouth MD every 12 Anderso (twelve) n hours. Cancer Center apixaban Yes Hyposmolali 2.5mg Take 1 Univers (ELIQUIS) 04-14 ty and/or tablet ity of 2.5 mg 00:00: hyponatremi (2.5 mg) [place] tablet 00 a by mouth MD every 12 Anderso (twelve) n hours. Cancer Center cefdinir 2021- No Hyposmolali 300mg Take 1 Univers (OMNICEF) 04-14 ty and/or capsule i ty of 300 mg 00:00: 04:59 hyponatremi (300 mg) [place] capsule 00 :00 a by mouth twice Anderso daily for n 3 days. Cancer Start Center taking the day before hou gets removed/ur ology appointmen t cefdinir 2021- No Hyposmolali 300mg Take 1 Univers (OMNICEF) 04-14 ty and/or capsule i ty of 300 mg 00:00: 04:59 hyponatremi (300 mg) [place] capsule 00 :00 a by mouth twice Anderso daily for n 3 days. Cancer Start Center taking the day before hou gets removed/ur ology appointmen t losartan 2021- No Hyposmolali 100mg Take 1 Univers (COZAAR) 04-09-06 ty and/or tablet ity of 100 mg 00:00: 04:59 hyponatremi (100 mg) [place] tablet 00 :00 a by mouth daily for Anderso 30 days. n Hold if Cancer systolic Center BP <120 losartan 2021- No Hyposmolali 100mg Take 1 Univers (COZAAR) 7-06 08-06 ty and/or tablet ity of 100 mg 00:00: 04:59 hyponatremi (100 mg) [place] tablet 00 :00 a by mouth MD daily for Anderso 30 days. n Hold if Cancer [facility] Center BP <120 apixaban 2021- No 2.5mg Take 2.5 Uni vers (ELIQUIS) 7-05 07-05 mg by ity of 2.5 mg 22:55: 00:00 mouth. [place] tablet 57 :00 MD Yu n [facility] apixaban 2021- No 2.5mg Take 2.5 Uni vers (ELIQUIS) 7-05 07-05 mg by ity of 2.5 mg 22:55: 00:00 mouth. [place] tablet 57 :00 MD Yu n [facility] losartan-hy 0 2021- No hypertensio 1{tbl} Take 1 Univers drochloroth 7-05 07-05 n tablet by it y of iazide 17:36: 00:00 mouth [place] (HYZAAR) 11 :00 daily. 100-25 mg Anderso per tablet n [facility] losartan-hy 0 2021- No hypertensio 1{tbl} Take 1 Univers drochloroth 7-05 07-05 n tablet by it y of iazide 17:36: 00:00 mouth [place] (HYZAAR) 11 :00 daily. 100-25 mg Anderso per tablet n [facility] sodium Yes Hyposmolali 1{spray Apply 1 Univers chloride 7-05 ty and/or } spray to it y of (OCEAN) 00:00: hyponatremi each nare [place] 0.65% nasal 00 a every 6 MD spray (six) Anderso hours. n [facility] sodium Yes Hyposmolali 1{spray Apply 1 Univers chloride 7-05 ty and/or } spray to it y of (OCEAN) 00:00: hyponatremi each nare [place] 0.65% nasal 00 a every 6 MD spray (six) Anderso hours. n [facility] hyoscyamine Yes Bladder .125mg Place 1 Univers sulfate 6-27 cancer tablet ity of (ANASPAZ) 00:00: (0.125 mg) [place] 0.125 mg 00 under the MD disintegrat tongue Mustapha o ing tablet every 6 n (six) Cancer hours as Center needed (bladder spasms). hyoscyamine Yes Bladder .125mg Place 1 Univers sulfate 03-31 cancer tablet ity of (ANASPAZ) 00:00: (0.125 mg) [place] 0.125 mg 00 under the MD disintegrat tongue Mustapha o ing tablet every 6 n (six) Cancer hours as Center needed (bladder spasms). levoFLOXaci 2021- No Bladder 500mg Take 1 Univers n 03-28 cancer tablet ity of (LEVAQUIN) 00:00: 00:00 (500 mg) [place] 500 mg 00 :00 by mouth MD tablet daily. Anderso Begin day n before Cancer surgery Center levoFLOXaci 2021- No Bladder 500mg Take 1 Univers n 03-28 cancer tablet ity of (LEVAQUIN) 00:00: 00:00 (500 mg) [place] 500 mg 00 :00 by mouth MD tablet daily. [place]o Begin day n before Cancer surgery Center levoFLOXaci 2021- No Bladder 500mg Take 1 Univers n 03-27 cancer tablet ity of (LEVAQUIN) 00:00: 00:00 (500 mg) [place] 500 mg 00 :00 by mouth MD tablet daily. Anderso Start the n day before Cancer surgery Center levoFLOXaci 2021- No [...] mouth [place] 00 :00 twice MD daily. Anderso n Cancer Center Eliquis 2.5 2021- No 1{tbl} Take 1 U nivers mg tablet 03-25 tablet by ity of 00:00: 00:00 mouth [place] 00 :00 twice MD daily. [facility] tolterodine 2021- No Mass of 4mg Take 1 Univers (Detrol LA) 02-21 urinary capsule (4 ity of 4 mg 24 hr 00:00: 00:00 bladder mg) by [place] capsule 00 :00 mouth MD daily. [facility] tolterodine 2021- No Mass of 4mg Take 1 Univers (Detrol LA) 02-21 urinary capsule (4 ity of 4 mg 24 hr 00:00: 00:00 bladder mg) by [place] capsule 00 :00 mouth MD daily. [facility] hyoscyamine 2021- No Painful .125mg Dissolve 1 Univers sulfate 02-21 bladder tablet ity of (ANASPAZ) 00:00: 04:59 spasm (0.125 mg) [place] 0.125 mg 00 :00 on the MD disintegrat tongue Mustapha o ing tablet every 4 n (four) Cancer hours as Center needed for cramping (bladder spasms, penile pain) for up to 7 days. hyoscyamine 2021- No Painful .125mg Dissolve 1 Univers sulfate 02-21 bladder tablet ity of (ANASPAZ) 00:00: 04:59 spasm (0.125 mg) [place] 0.125 mg 00 :00 on the MD disintegrat tongue Mustapha o ing tablet every 4 n (four) Cancer hours as Center needed for cramping (bladder spasms, penile pain) for up to 7 days. apixaban 2021- No 2.5mg Take 2.5 Uni vers (ELIQUIS) 5-19 05-19 mg by ity of 2.5 mg 11:19: 00:00 mouth [place] tablet 37 :00 twice MD daily. [facility] apixaban 2021- No 2.5mg Take 2.5 Uni vers (ELIQUIS) 5-19 05-19 mg by ity of 2.5 mg 11:19: 00:00 mouth [place] tablet 37 :00 twice MD daily. [facility] docusate 2021- No Mass of 100mg Take 1 Un pat sodium 02-20 urinary capsule ity of (Colace) 00:00: 04:59 bladder (100 mg) [place] 100 mg 00 :00 by mouth MD capsule twice Anderso daily for n 30 days. Cancer Center docusate No Mass of 100mg Take 1 Un pat sodium 02-20 urinary capsule ity of (Colace) 00:00: 04:59 bladder (100 mg) [place] 100 mg 00 :00 by mouth MD capsule twice Anderso daily for n 30 days. Cancer Center hyoscyamine No Painful .125mg Dissolve 1 Univers sulfate 02-19-20 bladder tablet ity of (ANASPAZ) 00:00: 00:00 spasm (0.125 mg) [place] 0.125 mg 00 :00 on the MD disintegrat tongue Mustapha o ing tablet every 4 n (four) Cancer hours as Center needed for cramping (bladder spasms, penile pain) for up to 7 days. hyoscyamine No Painful .125mg Dissolve 1 Univers sulfate 02-19 bladder tablet ity of (ANASPAZ) 00:00: 00:00 spasm (0.125 mg) [place] 0.125 mg 00 :00 on the MD disintegrat tongue Mustapha o ing tablet every 4 n (four) Cancer hours as Center needed for cramping (bladder spasms, penile pain) for up to 7 days. ipratropium No Unive rs (ATROVENT) 02-12 ity of 42 mcg 00:00: 00:00 [place] (0.06 %) 00 :00 MD nasal spray Anderso [facility] ipratropium No Unive rs (ATROVENT) 02-12 ity of 42 mcg 00:00: 00:00 [place] (0.06 %) 00 :00 MD nasal spray Anderso [facility] benzonatate 2021- No 1{capsu Take 1 Univers (TESSALON) 12-04 le} capsule by it y of 100 mg 00:00: 00:00 mouth 4 [place] capsule 00 :00 (four) MD times a Anderso day as n needed for Cancer cough. [place] benzonatate 2021- No 1{capsu Take 1 Univers (TESSALON) 12-0423 le} capsule by it y of 100 mg 00:00: 00:00 mouth 4 [place] capsule 00 :00 (four) MD times a Anderso day as n needed for Cancer cough. [place] methylPREDN Yes Squamous Take as Univers ISolone 2-15 cell directed ity of (Medrol, 00:00: carcinoma, (Direction [place] Bob,) 4 mg 00 NOS of s on MD tablet lower lobe, blister And erso lung <Left> pack) n [facility] methylPREDN Yes Squamous Take as Univers ISolone 2-15 cell directed ity of (Medrol, 00:00: carcinoma, (Direction [place] Bob,) 4 mg 00 NOS of s on MD tablet lower lobe, blister And erso lung <Left> pack) n [facility] mupirocin 2020-10- No Squamous Apply Un pat (BACTROBAN) 12-01 cell topically it y of 2% ointment 00:00: 00:00 carcinoma to [place] 00 :00 of scalp affected MD area(s) Anderso twice n daily. [facility] mupirocin 2020-10- No Squamous Apply Un pat (BACTROBAN) 12-01 cell topically it y of 2% ointment 00:00: 00:00 carcinoma to [place] 00 :00 of scalp affected MD area(s) Anderso twice n daily. Cancer [place] cephalexin 2020-10- No Squamous 500mg Take 1 Univers (KEFLEX) 12-01 cell capsule ity of 500 mg 00:00: 05:59 carcinoma (500 mg) [place] capsule 00 :00 of scalp by mouth twice Anderso daily for n 10 days. Cancer [place] cephalexin 2020-10- No Squamous 500mg Take 1 Univers (KEFLEX) 12-01 cell capsule ity of 500 mg 00:00: 05:59 carcinoma (500 mg) [place] capsule 00 :00 of scalp by mouth twice Anderso daily for n 10 days. Cancer [place] azithromyci 2020-10- No Unive rs n 1- 12-15 ity of (ZITHROMAX) 00:00: 00:00 [place] 250 mg 00 :00 tablet [facility] azithromyci 2020-10- No Unive rs n 10-15 12-15 ity of (ZITHROMAX) 00:00: 00:00 [place] 250 mg 00 :00 tablet [facility] carvedilol 2020-10 Yes 12.5mg 12.5 mg Un pat (COREG) 1-04 twice ity of 12.5 mg 00:00: daily. [place] tablet 00 [facility] carvedilol 2020-10 Yes 12.5mg 12.5 mg Un pat (COREG) 1-04 twice ity of 12.5 mg 00:00: daily. 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 [facility] mupirocin 2021- No Basal cell Apply Univers (BACTROBAN) 03-20 06-23 carcinoma - topically ity of 2% ointment 00:00: 00:00 [place] to [place] 00 :00 affected MD area(s) Anderso twice n daily. [facility] furosemide Yes 1{tbl} Take 1 Uni vers (LASIX) 20 1-19 tablet by ity of mg tablet 00:00: mouth [place] 00 every MD morning. [facility] furosemide Yes 1{tbl} Take 1 Uni vers (LASIX) 20 1-19 tablet by ity of mg tablet 00:00: mouth [place] 00 every MD morning. [facility] ALPRAZolam 2021- No 1{tbl} Take 1 Un pat (XANAX) 1 1-12 07-05 tablet by ity of mg tablet 00:00: 00:00 mouth [place] 00 :00 nightly as MD needed for Anderso sleep. [facility] ALPRAZolam 2021- No 1{tbl} Take 1 Un pat (XANAX) 1 10-16 07-05 tablet by ity of mg tablet 00:00: 00:00 mouth [place] 00 :00 nightly as [facility] n [facility] carvedilol 2019-10- No 1{tbl} Take 1 Un pat (COREG) 25 2-16 12-15 tablet by ity of mg tablet 00:00: 00:00 mouth [place] 00 :00 twice MD daily. [facility] carvedilol 2019-10- No 1{tbl} Take 1 Un pat (COREG) 25 2-16 12-15 tablet by ity of mg tablet 00:00: 00:00 mouth [place] 00 :00 twice MD daily. [facility] Yes 1 PUFF BY Unive rs Ellipta 6-15 MOUTH ity of 100-62.5-25 00:00: DAILY, [place] mcg dsdv 00 RINSE MD MOUTH WITH [place]o WATER n AFTER USE [facility] Yes 1 PUFF BY Unive rs Ellipta 6-15 MOUTH ity of 100-62.5-25 00:00: DAILY, [place] mcg dsdv 00 RINSE MD MOUTH WITH [place] WATER n AFTER USE Cancer [place] carvedilol Yes 12.5mg Take 12.[address] [facility] (COREG) 6-08 [facility] 12.5 MG 11:08: mouth 2 Medical tablet 49 (two) Center times daily with breakfast and dinner. losartan-hy Yes 1{tbl} QD Take [address] drochloroth 6-08 tablet by Jenny montilla 11:08: mouth Medical (HYZAAR) 49 daily. Center 100-12.5 mg per tablet atorvastati Yes 40mg QD Take [address] [facility] n (LIPITOR) 6-08 by mouth Luke s 40 MG 11:08: daily. Medical tablet 49 Center amLODIPine Yes 5mg QD Take [address] (NORVASC) 5 6-08 by mouth Luke s MG tablet 11:08: daily. Medica l 49 Center apixaban Yes 2.5mg Q.5D Take 2.[address] [facility] [address] (ELIQUIS) 6-08 mg by [facility] 2.5 mg Tab 11:08: mouth 2 Medi ruperto tablet 49 (two) Center times daily. cholecalcif 2016-0 Yes 1000U Take 1,[address] [facility] [facility] binh, 6-08 Units by [place] vitamin D3, 11:08: mouth as Me dical 1,000 unit 49 needed Pt Cent er capsule takes irreg jimbo . Immunizations Ordered Filled Immunization Date Status Comments Sour e Immunization Name Name [facility] SARS-CoV-2 2021-12-01 Completed Univer sity of Vaccination 00:00:00 [place] MD [facility] SARS-CoV-2 2021-12-01 Completed Univer sity of Vaccination 00:00:00 [place] [facility] SARS-CoV-2 2021-11-11 Completed Univer sity of Booster Vaccination 00:00:00 Fitz Moreno (50 mcg/0.25 mL) Cancer C enter [facility] SARS-CoV-2 2021-11-11 Completed Univer sity of Booster Vaccination 00:00:00 Fitz Moreno (50 mcg/0.25 mL) Cancer C enter [facility] SARS-CoV-2 2021-06-20 Completed Univer sity of Vaccination 00:00:00 [place] MD Coy [facility] SARS-CoV-2 2021-06-20 Completed Univer sity of Vaccination 00:00:00 [place] MD Coy [facility] Influenza Whole 2021-06-12 Completed Universit [facility] of 00:00:00 [place] [facility] Influenza Whole 2021-06-12 Completed [facility] 00:00:00 [place] [facility] 2020-11-15 Completed Univer [facility]ity of Vaccination 00:00:00 [place] [facility] 2020-11-15 Completed Univer [facility]ity of Vaccination 00:00:00 [place] [facility] SARS-CoV-2 2020-10-18 Completed [facility]iver [facility]ity of Vaccination 00:00:00 [place] [facility] SARS-CoV-2 2020-10-18 Completed Univer [facility]ity of Vaccination 00:00:00 [place] MD Coy [facility] Tdap 2019-10-15 Completed University of 00:00:00 [facility] Tdap 2019-10-15 Completed University of 00:00:00 [place] [facility] Influenza, 2019-08-13 Completed University of Quadrivalent 00:00:00 [facility] Influenza, 2019-08-13 Completed University of Quadrivalent 00:00:00 [facility] Influenza, 2018-08-31 Completed University of Unspecified 00:00:00 [facility] Influenza, 2018-08-31 Completed University of Unspecified 00:00:00 [facility] Vital Signs Vital Name Observation Time Observation Value Comments Source Oxygen saturation in 2022-05-21 15:26:00 96 /min [place] of Arterial blood by [facility] Systolic blood 2022-05-21 15:22:35 157 mm[Hg] Univer sity of pressure [facility] Diastolic blood 2022-05-21 15:22:35 72 mm[Hg] Unive rsity of pressure [place] [facility] Heart rate 2022-05-21 15:22:35 54 /min Universi ty [facility] Body temperature 2022-05-21 15:22:35 36.89 Shobha [facility] Respiratory rate 2022-05-21 15:22:35 22 /min [facility] Body weight 2022-05-21 15:22:35 87.5 [facility] BMI 2022-05-21 15:22:35 26.13 kg/m2 [facility]i ty [facility] Body height 2022-04-07 04:00:00 183 cm [facility] MD [facility] Procedures Procedure Date / Time Performing Source Performed Clinician COMPLETE BLOOD COUNT W/ 2022-04-14 Kaitlin Thompson [facility] [place] DIFFERENTIAL 15:19:00 [facility] COMPREHENSIVE METABOLIC PANEL 2022-04-14 Kaitlin Thompson V. [facility] 15:19:00 [facility] MAGNESIUM LEVEL 2022-04-14 Kaitlin Thompson V. [facility] 15:19:00 [facility] THYROID STIMULATING HORMONE 2022-04-14 Kaitlin Thompson V. [facility] 15:19:00 [facility] FREE THYROXINE 2022-04-14 Kaitlin Thompson V. [facility] 15:19:00 [facility] Results CBC 2022-04-14 Kaitlin Thompson V. [facility] 15:19:00 [facility] MANUAL DIFFERENTIAL 2022-04-14 Kaitlin Thompson V. [facility] 15:19:00 [facility] GLUCOSE LEVEL 2022-04-14 Kaitlin Thompson V. [facility] 15:19:00 [facility] BLOOD UREA NITROGEN 2022-04-14 Kaitlin Thompson V. [facility] 15:19:00 [facility] ELECTROLYTE PANEL 2022-04-14 Kaitlin Thompson V. [facility] 15:19:00 [facility] SERUM CREATININE 2022-04-14 Kaitlin Thompson V. [facility] 15:19:00 [facility] .GLOMERULAR FILTRATION RATE 2022-04-14 Kaitlin Thompson V. [facility] 15:19:00 [facility] CALCIUM LEVEL TOTAL 2022-04-14 Kaitlin Thompson V. [facility] 15:19:00 [facility] ALBUMIN LEVEL 2022-04-14 Kaitlin Thompson V. [facility] 15:19:00 [facility] ALKALINE PHOSPHATASE 2022-04-14 Kaitlin Thompson V. [facility] 15:19:00 [facility] ALANINE AMINOTRANSFERASE 2022-04-14 Kaitlin Thompson V. [facility] 15:19:00 [facility] ASPARTATE AMINOTRANSFERASE 2022-04-14 Kaitlin Thompson V. [facility] 15:19:00 [facility] TOTAL PROTEIN 2022-04-14 Kaitlin Thompson V. [facility] 15:19:00 [facility] FRACTIONATED BILIRUBIN 2022-04-14 Kaitlin Thompson V. [facility] 15:19:00 [facility] CORTISOL 2022-04-08 Elvin Diez [facility] 16:08:00 A. MD [facility] MAGNESIUM LEVEL 2022-04-08 Juan F Dinero [place] 07:33:00 [facility] PHOSPHORUS LEVEL 2022-04-08 Juan F Dinero [facility] 07:33:00 [facility] COMPLETE BLOOD COUNT W/ 2022-04-08 Juan F Dinero [facility] DIFFERENTIAL 07:33:00 [facility] BASIC METABOLIC PANEL, 2022-04-08 Juan F Dinero [facility] CALCIUM TOTAL 07:33:00 [facility] GLUCOSE LEVEL 2022-04-08 Juan F Dinero [place] 07:33:00 [facility] BLOOD UREA NITROGEN 2022-04-08 Juan F Dinero [facility] 07:33:00 [facility] ELECTROLYTE PANEL 2022-04-08 Juan F Dinero [facility] 07:33:00 [facility] SERUM CREATININE 2022-04-08 Juan F Dinero [facility] 07:33:00 [facility] .GLOMERULAR FILTRATION RATE 2022-04-08 Juan F Dinero [facility] 07:33:00 [facility] CALCIUM LEVEL TOTAL 2022-04-08 Juan F Dinero [facility] 07:33:00 [facility] Results CBC 2022-04-08 Juan F Dinero [facility] 07:33:00 [facility] MANUAL DIFFERENTIAL 2022-04-08 Juan F Dinero [facility] 07:33:00 [facility] HEMOGLOBIN 2022-04-07 Chacha Mensah [facility] 22:16:00 [facility] OSMOLALITY URINE 2022-04-07 [facility] exas 20:26:00 [facility] SODIUM URINE 2022-04-07 [facility] xas 20:26:00 [facility] POTASSIUM LEVEL URINE 2022-04-07 [facility] 20:26:00 [facility] CHLORIDE LEVEL URINE 2022-04-07 [facility] 20:26:00 [facility] CREATININE URINE, RANDOM 2022-04-07 [facility] 20:26:00 [facility] MRI PITUITARY W WO CONTRAST 2022-04-07 Elvin Diez [facility] 19:05:19 A. [facility] GENERAL LABORATORY ADD ON 2022-04-07 Chacha Mensah [facility] TEST 18:39:00 [facility] SEDIMENTATION RATE 2022-04-07 [facility] NON-AUTOMATED 15:32:00 A. [facility] C REACTIVE PROTEIN 2022-04-07 [facility] 15:32:00 A. [facility] TESTOSTERONE LEVEL 2022-04-07 [facility] 15:32:00 A. [facility] ADRENOCORTICOTROPIC HORMONE 2022-04-07 Elvin Diez [facility] 15:32:00 A. [facility] FOLLICLE STIMULATING HORMONE 2022-04-07 [facility] LEVEL 15:32:00 A. [facility] LUTEINIZING HORMONE 2022-04-07 [facility] 15:32:00 A. [facility] PROLACTIN 2022-04-07 [facility] 15:32:00 A. [facility] CORTISOL 2022-04-07 [facility] 15:32[facility]00 [facility] MAGNESIUM LEVEL 2022-04-07 Juan F Dinero [facility] 06:56:00 [facility] PHOSPHORUS LEVEL 2022-04-07 Juan F Dinero [facility] 06:56:00 [facility] COMPLETE BLOOD COUNT W/ 2022-04-07 Juan F Dinero [facility] DIFFERENTIAL 06:56:00 [facility] BASIC METABOLIC PANEL, 2022-04-07 Juan F Dinero [facility] CALCIUM TOTAL 06:56:00 [facility] THYROID STIMULATING HORMONE 2022-04-07 Juan F Dinero [facility] 06:56:00 [facility] FREE THYROXINE 2022-04-07 Juan F Dinero [facility] 06:56:00 [facility] SODIUM LEVEL 2022-04-07 Juan F Dinero [facility] 06:56:00 [facility] GLUCOSE LEVEL 2022-04-07 Juan F Dinero [facility] 06:56:00 [facility] BLOOD UREA NITROGEN 2022-04-07 Juan F Dinero [facility] 06:56:00 [facility] ELECTROLYTE PANEL 2022-04-07 Juan F Dinero [facility] 06:56:00 [facility] SERUM CREATININE 2022-04-07 Juan F Dinero [facility] 06:56:00 [facility] .GLOMERULAR FILTRATION RATE 2022-04-07 Juan F Dinero [facility] 06:56:00 [facility] CALCIUM LEVEL TOTAL 2022-04-07 Juan F Dinero [facility] 06:56:00 [facility] Results CBC 2022-04-07 Juan F Dinero [facility] 06:56:00 [facility] MANUAL DIFFERENTIAL 2022-04-07 Juan F Dinero [facility] 06:56:00 [facility] CT HEAD WO CONTRAST 2022-04-07 Juan F Dinero [facility] 05:53:19 [facility] OSMOLALITY 2022-04-07 [facility] 02:18:00 [facility] OSMOLALITY URINE 2022-04-07 [facility] exas 02:18:00 [facility] SODIUM URINE 2022-04-07 [facility] 02:18:00 [facility] COVID-19 (SARS-COV-2) 2022-04-07 Goldy [facility] ASYMPTOMATIC-LT 02:05:00 [facility] POC CHEM 8 2022-04-07 [place], [facility] xa 01:22:00 [facility] URINE CULTURE 2022-04-[address] [facility] xa 23:18:00 [facility] URINALYSIS WITH MICROSCOPIC 2022-04-06 Tommy [facility] IF INDICATED 23:18:00 [facility] COMPLETE BLOOD COUNT W/ 2022-04-06 Tommy [facility] DIFFERENTIAL 23:18:00 [facility] PROTHROMBIN TIME 2022-04-06 Tommy [facility] ex 23:18:00 [facility] APTT 2022-04-[address] [facility] xa 23:18:00 [facility] COMPREHENSIVE METABOLIC PANEL 2022-04-06 Tommy [facility] 23:18:00 [facility] LACTATE DEHYDROGENASE 2022-04-06 Tommy [facility] 23:18:00 [facility] MAGNESIUM LEVEL 2022-04-[address] [facility] xa 23:18:00 [facility] PHOSPHORUS LEVEL 2022-04-06 [facility] 23:18:00 [facility] Results CBC 2022-04-[address] [facility] xa 23:18:00 [facility] MANUAL DIFFERENTIAL 2022-04-06 Tommy [facility] 23:18:00 [facility] GLUCOSE LEVEL 2022-04-[address] [facility] xa 23:18:00 [facility] BLOOD UREA NITROGEN 2022-04-06 Tommy [facility] 23:18:00 [facility] ELECTROLYTE PANEL 2022-04-06 Tommy [facility] 23:18:00 [facility] SERUM CREATININE 2022-04-06 Tommy [facility] exas 23:18:00 [facility] .GLOMERULAR FILTRATION RATE 2022-04-06 [facility] 23:18:00 [facility] CALCIUM LEVEL TOTAL 2022-04-06 [facility] [place] 23:18:00 [facility] ALBUMIN LEVEL 2022-04-06 [facility] xas 23:18:00 [facility] ALKALINE PHOSPHATASE 2022-04-06 [facility] 23:18:00 [facility] ALANINE AMINOTRANSFERASE 2022-04-06 [facility] 23:18:00 [facility] ASPARTATE AMINOTRANSFERASE 2022-04-06 [facility] 23:18:00 [facility] TOTAL PROTEIN 2022-04-06 [facility] x[facility] 23:18:00 [facility] FRACTIONATED BILIRUBIN 2022-04-06 [facility] 23:18:00 [facility] URINALYSIS MICROSCOPIC 2022-04-06 [facility] 23:18:00 [facility] PATHOLOGY SURGICAL 2022-03-31 [facility] INTERPRETATION 21:28:00 [facility] CYSTOURETHROSCOPY WITH 2022-03-31 [facility] FULGURATION AND/OR TREATMENT 20:04:00 [facility] 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 15:54:13 [facility] ABORH 2022-03-28 Shayne Mccannha Ranjana [facility] xa 15:54:13 [facility] URINALYSIS WITH MICROSCOPIC 2022-03-28 [facility] IF INDICATED 15:54:13 [facility] ANTIBODY SCREEN 2022-03-28 [facility] xa 15:54:13 [facility] CLOT EXPIRATION DATE 2022-03-28 [facility] 15:54:13 [facility] TMP INTERPRETATION ANTIBODY 2022-03-28 [facility] Nemacolin Ranjana [facility] SCREEN NEGATIVE 15:54:13 [facility] COMPLETE BLOOD COUNT W/ 2022-03-18 Bria Blackwood [facility] DIFFERENTIAL 18:56:21 [facility] COMPREHENSIVE METABOLIC PANEL 2022-03-18 Bria Blackwood [facility] 18:56:21 [facility] FERRITIN LVL 2022-03-18 Bria Blackwood [facility] xa 18:56:21 [facility] VITAMIN B12 LEVEL 2022-03-18 Bria Blackwood [facility] 18:56:21 [facility] Results CBC 2022-03-18 Bria Blackwood [facility] xa 18:56:21 [facility] MANUAL DIFFERENTIAL 2022-03-18 Bria Blackwood [facility] 18:56:21 [facility] GLUCOSE LEVEL 2022-03-18 Bria Blackwood [facility] xa 18:56:21 [facility] BLOOD UREA NITROGEN 2022-03-18 Bria Blackwood [place] 18:56:21 [facility] ELECTROLYTE PANEL 2022-03-18 Bria Blackwood [facility] 18:56:21 [facility] SERUM CREATININE 2022-03-18 Bria Blackwood [facility] exas 18:56:21 [facility] .GLOMERULAR FILTRATION RATE 2022-03-18 Bria Blackwood [facility] 18:56:21 [facility] CALCIUM LEVEL TOTAL 2022-03-18 Bria Blackwood [facility] 18:56:21 [facility] ALBUMIN LEVEL 2022-03-18 Bria Blackwood [facility] xa 18:56:21 [facility] ALKALINE PHOSPHATASE 2022-03-18 Bria Blackwood [facility] 18:56:21 [facility] ALANINE AMINOTRANSFERASE 2022-03-18 Bria Blackwood [facility] 18:56:21 [facility] ASPARTATE AMINOTRANSFERASE 2022-03-18 Bria Blackwood [facility] 18:56:21 [facility] TOTAL PROTEIN 2022-03-18 Bria Blackwood [facility] 18:56:21 [facility] FRACTIONATED BILIRUBIN 2022-03-18 Bria Blackwood [facility] 18:56:21 [facility] COMPLETE BLOOD COUNT W/ 2022-03-04 Kaitlin Thompson V. [facility] DIFFERENTIAL 13:34:00 [facility] COMPREHENSIVE METABOLIC PANEL 2022-03-04 Kaitlin Thompson V. [facility] 13:34:00 [facility] MAGNESIUM LEVEL 2022-03-04 Kaitlin Thompson V. [facility] 13:34:00 [facility] THYROID STIMULATING HORMONE 2022-03-04 Kaitlin Thompson V. [facility] 13:34:00 [facility] FREE THYROXINE 2022-03-04 Kaitlin Thompson V. [facility] 13:34:00 [facility] Results CBC 2022-03-04 Kaitlin Thompson V. [facility] 13:34:00 [facility] MANUAL DIFFERENTIAL 2022-03-04 Kaitlin Thompson V. [facility] 13:34:00 [facility] GLUCOSE LEVEL 2022-03-04 Kaitlin Thompson V. [facility] 13:34:00 [facility] BLOOD UREA NITROGEN 2022-03-04 Kaitlin Thompson V. [facility] 13:34:00 [facility] ELECTROLYTE PANEL 2022-03-04 Kaitlin Thompson V. [facility] 13:34:00 [facility] SERUM CREATININE 2022-03-04 Kaitlin Thompson V. [facility] 13:34:00 [facility] .GLOMERULAR FILTRATION RATE 2022-03-04 Kaitlin Thompson V. [facility] 13:34:00 [facility] CALCIUM LEVEL TOTAL 2022-03-04 Kaitlin Thompson V. [facility] 13:34:00 [facility] ALBUMIN LEVEL 2022-03-04 Kaitlin Thompson V. [facility] 13:34:00 [facility] ALKALINE PHOSPHATASE 2022-03-04 Kaitlin Thompson V. [facility] 13:34:00 [facility] ALANINE AMINOTRANSFERASE 2022-03-04 Kaitlin Thompson V. [facility] 13:34:00 [facility] ASPARTATE AMINOTRANSFERASE 2022-03-04 Kaitlin Thompson V. [facility] 13:34:00 [facility] TOTAL PROTEIN 2022-03-04 Kaitlin Thompson V. [facility] 13:34:00 [facility] FRACTIONATED BILIRUBIN 2022-03-04 Kaitlin Thompson V. [facility] 13:34:00 [facility] PATHOLOGY SURGICAL 2022-02-19 [facility] INTERPRETATION 17:24:00 [facility] CYSTOURETHROSCOPY WITH [facility]22-02-[facility]AT[facility] 15:59:00 MD [facility] OF LARGE LESION(S) (>5.0 CM) [facility] ABDOMEN PELVIS W WO 2022-02-18 Ricardo Mccann [facility] CONTRAST UROGRAM 14:02:00 [facility] POC CREATININE 2022-02-18 Leonard Giraldo [facility] 12:49:00 [facility] COVID-19 (SARS-COV-2) PCR 2022-02-17 [facility] 16:16:00 [facility] URINE CULTURE 2022-02-17 Ricardo Mccann [facility] 15:51:37 [facility] TYPE AND SCREEN 2022-02-17 [place], [facility] xas 15:51:37 [facility] PROTHROMBIN TIME 2022-02-17 [facility] exas 15:51:37 [facility] HEMOGLOBIN A1C 2022-02-17 [facility] 15:51:37 [facility] URINALYSIS MICROSCOPIC 2022-02-17 [facility] 15:51:37 [facility] [facility] APTT 2022-02-17 [facility] 15:51:37 [facility] ABORH 2022-02-17 [facility] 15:51:37 [facility] ANTIBODY SCREEN 2022-02-17 [facility] 15:51:37 [facility] URINALYSIS WITH MICROSCOPIC 2022-02-17 [facility] IF INDICATED 15:51:37 [facility] CLOT EXPIRATION DATE 2022-02-17 [facility] 15:51:37 [facility] TMP INTERPRETATION ANTIBODY 2022-02-17 [facility] SCREEN NEGATIVE 15:51:37 [facility] COMPLETE BLOOD COUNT W/ 2022-02-04 Kaitlin Thompson V. [facility] DIFFERENTIAL 13:05:00 [facility] COMPREHENSIVE METABOLIC PANEL 2022-02-04 Kaitlin Thompson V. [facility] 13:05:00 [facility] MAGNESIUM LEVEL 2022-02-04 Kaitlin Thomposn V. [facility] 13:05:00 [facility] THYROID STIMULATING HORMONE 2022-02-04 Kaitlin Thompson V. [facility] 13:05:00 [facility] FREE THYROXINE 2022-02-04 Kaitlin Thompson V. [facility] 13:05:00 [facility] ADRENOCORTICOTROPIC HORMONE 2022-02-04 Kaitlin Thompson V. [facility] 13:05:00 [facility] CORTISOL 2022-02-04 Kaitlin Thompson V. [facility] 13:05:00 [facility] Results CBC 2022-02-04 Kaitlin Thompson V. [facility] 13:05:00 [facility] GLUCOSE LEVEL 2022-02-04 Kaitlin Thompson V. [facility] 13:05:00 [facility] BLOOD UREA NITROGEN 2022-02-04 Kaitlin Thompson V. [facility] 13:05:00 [facility] ELECTROLYTE PANEL 2022-02-04 Kaitlin Thompson V. [facility] 13:05:00 [facility] SERUM CREATININE 2022-02-04 Kaitlin Thompson V. [facility] 13:05:00 [facility] .GLOMERULAR FILTRATION RATE 2022-02-04 Kaitlin Thompson V. [facility] 13:05:00 [facility] CALCIUM LEVEL TOTAL 2022-02-04 Kaitlin Thompson V. [facility] 13:05:00 [facility] ALBUMIN LEVEL 2022-02-04 Kaitlin Thompson V. [facility] 13:05:00 [facility] ALKALINE PHOSPHATASE 2022-02-04 Kaitlin Thompson V. [facility] 13:05:00 [facility] ALANINE AMINOTRANSFERASE 2022-02-04 Kaitlin Thompson V. [facility] 13:05:00 [facility] ASPARTATE AMINOTRANSFERASE 2022-02-04 Kaitlin Thompson V. [facility] 13:05:00 [facility] TOTAL PROTEIN 2022-02-04 Kaitlin Thompson V. [facility] 13:05:00 [facility] FRACTIONATED BILIRUBIN 2022-02-04 Kaitlin Thompson V. [facility] 13:05:00 [facility] MANUAL DIFFERENTIAL 2022-02-04 Kaitlin Thompson V. [facility] 13:05:00 [facility] OSI CT ABDOMEN AND PELVIS 2022-01-26 Leonard Giraldo [facility] 20:12:00 [facility] COMPLETE BLOOD COUNT W/ 2022-01-01 Nicolette Mosher [facility] DIFFERENTIAL 14:58:00 [facility] COMPREHENSIVE METABOLIC PANEL 2022-01-01 Vidhi [facility] 14:58:00 [facility]INE [facility]22[facility]01-[facility] 14:58[facility]00 [facility] MAGNESIUM LEVEL 2022-01-01 [facility] 14:58:00 [facility] TOTAL T3 2022-01-01 [facility] 14:58:00 [facility] THYROID STIMULATING HORMONE 2022-01-01 [facility] 14:58:00 [facility]IC [facility]ID 2022[facility]01-01 [facility]00 [facility] Results CBC 2022[facility]01-01 [facility] 14:58:00 [facility] MANUAL DIFFERENTIAL 2022-01-01 [facility] 14:58:00 [facility] GLUCOSE LEVEL 2022-01-01 [facility] 14:58:00 [facility] BLOOD UREA NITROGEN 2022-01-01 [facility] 14:58:00 [facility]EL 2022[facility]01-[facility] 14:58:00 [facility] SERUM CREATININE 2022-01-01 [facility] 14:58:00 [facility] .GLOMERULAR FILTRATION RATE 2022-01-01 Nicolette Mosher [facility] 14:58:00 [facility] CALCIUM LEVEL TOTAL 2022-01-01 [facility] 14:58:00 [facility] ALBUMIN LEVEL 2022-01-01 [facility] 14:58:00 [facility] ALKALINE PHOSPHATASE 2022-01-01 [facility] 14:58:00 [facility] ALANINE AMINOTRANSFERASE 2022-01-01 [facility] 14[facility]58[facility]00 [facility] ASPARTATE AMINOTRANSFERASE 2022-01-01 Nicolette Mosher [facility] 14:58:00 [facility] TOTAL PROTEIN 2022-01-01 Triny Mosherbeth [facility] 14:58:00 [facility] FRACTIONATED BILIRUBIN 2022-01-01 Nicolette Mosher [facility] 14:58:00 [facility] OSI CT BRAIN 2021-12-30 [facility] 20:17:00 [facility] OSI CT CHEST 2021-12-30 [facility] 20:13:00 [facility] ECHOCARDIOGRAM 2D COMPLETE 2021-12-23 Nicolette Mosher [facility] 20:33:47 [facility] XR CHEST 2 VW [facility]12-[facility] 18:06:47 [facility] PROTHROMBIN TIME 2021-12-23 [facility] 18:05:00 [facility] PETCT SUBSEQUENT TREATMENT 2021-12-09 Kaitlin Thompson V. [facility] STRATEGY 17:36:49 [facility] COMPLETE BLOOD COUNT W/ 2021-12-09 Kaitlin Thompson V. [facility] DIFFERENTIAL 15:00:31 [facility] COMPREHENSIVE METABOLIC PANEL 2021-12-09 Kaitlin Thompson V. [facility] 15:00:31 [facility] MAGNESIUM LEVEL 2021-12-09 Kaitlin Thompson V. [facility] 15:00:31 [facility] THYROID STIMULATING HORMONE 2021-12-09 Kaitlin Thompson V. [facility] 15:00:31 [facility] FREE THYROXINE 2021-12-09 Kaitlin Thompson V. [facility] 15:00:31 [facility] Results CBC 2021-12-09 Kaitlin Thompson V. [facility] 15:00:31 [facility] MANUAL DIFFERENTIAL 2021-12-09 Kaitlin Thompson V. [facility] 15:00:31 [facility] GLUCOSE LEVEL 2021-12-09 Kaitlin Thompson V. [facility] 15:00:31 [facility] BLOOD UREA NITROGEN 2021-12-09 Kaitlin Thompson V. [facility] 15:00:31 [facility] ELECTROLYTE PANEL 2021-12-09 Kaitlin Thompson V. [facility] 15:00:31 [facility] SERUM CREATININE 2021-12-09 Kaitlin Thompson V. [facility] 15:00:31 [facility] .GLOMERULAR FILTRATION RATE 2021-12-09 Kaitlin Thompson V. [facility] 15:00:31 [facility] CALCIUM LEVEL TOTAL 2021-12-09 Kaitlin Thompson V. [facility] 15:00:31 [facility] ALBUMIN LEVEL 2021-12-09 Kaitlin Thompson V. [facility] 15:00:31 [facility] ALKALINE PHOSPHATASE 2021-12-09 Kaitlin Thompson V. [facility] 15:00:31 [facility] ALANINE AMINOTRANSFERASE 2021-12-09 Kaitlin Thompson V. [facility] 15:00:31 [facility] ASPARTATE AMINOTRANSFERASE 2021-12-09 Kaitlin Thompson V. [facility] 15:00:31 [facility] TOTAL PROTEIN 2021-12-09 Kaitlin Thompson V. [facility] 15:00:31 [facility] FRACTIONATED BILIRUBIN 2021-12-09 Kaitlin Thompson V. [facility] 15:00:31 [facility] OSI CHEST 2021-11-19 [facility] 21:19:00 [facility] GENERAL LABORATORY ADD ON 2021-11-13 Nicolette Mosher [facility] TEST 21:45:00 [facility] COMPLETE BLOOD COUNT W/ 2021-11-13 Vidhi [facility] DIFFERENTIAL 14:54:00 [facility] COMPREHENSIVE METABOLIC PANEL 2021-11-13 [facility] 14:54:00 [facility] MAGNESIUM LEVEL 2021-11-13 [facility] 14:54:00 [facility] GLUCOSE LEVEL 2021-11-13 [facility] 14:54:00 [facility] BLOOD UREA NITROGEN 2021-11-13 [facility] 14:54:00 [facility] ELECTROLYTE PANEL 2021-11-13 [facility] 14:54:00 [facility] SERUM CREATININE 2021-11-13 [facility] 14:54:00 [facility] .GLOMERULAR FILTRATION RATE 2021-11-13 [facility] 14:54:00 [facility] CALCIUM LEVEL TOTAL 2021-11-13 [facility] 14:54:00 [facility] ALBUMIN LEVEL 2021-11-13 [facility] 14:54:00 [facility] ALKALINE PHOSPHATASE 2021-11-13 [facility] 14:54:00 [facility] ALANINE AMINOTRANSFERASE 2021-11-13 Vidhi Nicolette [facility] 14:54:00 [facility] ASPARTATE AMINOTRANSFERASE 2021-11-13 [facility] 14:54:00 [facility] TOTAL PROTEIN 2021-11-13 [facility] 14:54:00 [facility] FRACTIONATED BILIRUBIN 2021-11-13 [facility] Healthcare[facility] 14:54:00 [facility] Results CBC 2021-11-13 [facility] 14:54:00 [facility] MANUAL DIFFERENTIAL 2021-11-13 [facility] 14:54:00 [facility] FREE THYROXINE 2021-11-13 [facility] 14:54:00 [facility] THYROID STIMULATING HORMONE 2021-11-13 Nicolette Mosher [facility] 14:54:00 [facility] COMPLETE BLOOD COUNT W/ 2021-10-15 Kaitlin Thompson V. [facility] DIFFERENTIAL 16:56:00 [facility] COMPREHENSIVE METABOLIC PANEL 2021-10-15 Kaitlin Thompson V. [facility] 16:56:00 [facility] MAGNESIUM LEVEL 2021-10-15 Kaitlin Thompson V. [facility] 16:56:00 [facility] THYROID STIMULATING HORMONE 2021-10-15 Kaitlin Thompson V. [facility] 16:56:00 [facility] FREE THYROXINE 2021-10-15 Kaitlin Thompson V. [facility] 16:56:00 [facility] Results CBC 2021-10-15 Kaitlin Thompson V. [facility] 16:56:00 [facility] MANUAL DIFFERENTIAL 2021-10-15 Kaitlin Thompson V. [facility] 16:56:00 [facility] GLUCOSE LEVEL 2021-10-15 Kaitlin Thompson V. [facility] 16:56:00 [facility] BLOOD UREA NITROGEN 2021-10-15 Kaitlin Thompson V. [facility] 16:56:00 [facility] ELECTROLYTE PANEL 2021-10-15 Kaitlin Thompson V. [facility] 16:56:00 [facility] SERUM CREATININE 2021-10-15 Kaitlin Thompson V. [facility] 16:56:00 [facility] .GLOMERULAR FILTRATION RATE 2021-10-15 Kaitlin Thompson V. [facility] 16:56:00 [facility] CALCIUM LEVEL TOTAL 2021-10-15 Kaitlin Thompson V. [facility] 16:56:00 [facility] ALBUMIN LEVEL 2021-10-15 Kaitlin Thompson V. [facility] 16:56:00 [facility] ALKALINE PHOSPHATASE 2021-10-15 Kaitlin Thompson V. [facility] 16:56:00 [facility] ALANINE AMINOTRANSFERASE 2021-10-15 Kaitlin Thompson V. [facility] 16:56:00 [facility] ASPARTATE AMINOTRANSFERASE 2021-10-15 Kaitlin Thompson V. [facility] 16:56:00 [facility] TOTAL PROTEIN 2021-10-15 Kaitlin Thompson V. [facility] 16:56:00 [facility] FRACTIONATED BILIRUBIN 2021-10-15 Kaitlin Thompson V. [facility] 16:56:00 [facility] CT CHEST W CONTRAST 2021-10-15 [facility] 15:56:00 [facility] POC CREATININE 2021-10-15 [facility] 15:21:00 [facility] PATHOLOGY BIOPSY 2021-09-30 Emil [facility] INTERPRETATION 14:31:00 [facility] EXCISION 2021-09-30 [facility] 14:30:02 [facility] EXCISION 2021-09-30 [facility] 14:29:55 [facility] MOHS SITE 1 2021-09-30 [facility] 14:29:50 [facility] MOHS SITE 1 2021-09-30 [facility] 14:29:44 [facility] COMPLETE BLOOD COUNT W/ 2021-09-18 Kaitlin Thompson V. [facility] DIFFERENTIAL 16:30:00 [facility] COMPREHENSIVE METABOLIC PANEL 2021-09-18 Kaitlin Thompson V. [facility] 16:30:00 [facility] MAGNESIUM LEVEL 2021-09-18 Kaitlin Thompson V. [facility] 16:30:00 [facility] THYROID STIMULATING HORMONE 2021-09-18 Kaitlin Thompson V. [facility] 16:30:00 [facility] FREE THYROXINE 2021-09-18 Kaitlin Thompson V. [facility] 16:30:00 [facility] Results CBC 2021-09-18 Kaitlin Thompson V. [facility] 16:30:00 [facility] MANUAL DIFFERENTIAL 2021-09-18 Kaitlin Thompson V. [facility] 16:30:00 [facility] GLUCOSE LEVEL 2021-09-18 Kaitlin Thompson V. [facility] 16:30:00 [facility] BLOOD UREA NITROGEN 2021-09-18 Kaitlin Thompson V. [facility] 16:30:00 [facility] ELECTROLYTE PANEL 2021-09-18 Kaitlin Thompson V. [facility] 16:30:00 [facility] SERUM CREATININE 2021-09-18 Kaitlin Thompson V. [facility] 16:30:00 [facility] .GLOMERULAR FILTRATION RATE 2021-09-18 Kaitlin Thompson V. [facility] 16:30:00 [facility] CALCIUM LEVEL TOTAL 2021-09-18 Kaitlin Thompson V. [facility] 16:30:00 [facility] ALBUMIN LEVEL 2021-09-18 Kaitlin Thompson V. [facility] 16:30:00 [facility] ALKALINE PHOSPHATASE 2021-09-18 Kaitlin Thompson V. [facility] 16:30:00 [facility] ALANINE AMINOTRANSFERASE 2021-09-18 Kaitlin Thompson V. [facility] 16:30:00 [facility] ASPARTATE AMINOTRANSFERASE 2021-09-18 Kaitlin Thompson V. [facility] 16:30:00 [facility] TOTAL PROTEIN 2021-09-18 Kaitlin Thompson V. [facility] 16:30:00 [facility] FRACTIONATED BILIRUBIN 2021-09-18 Katilin Thompson V. [facility] 16:30:00 [facility] PATHOLOGY BIOPSY 2021-08-21 Nahed Bertrand [facility] INTERPRETATION 16:17:00 [facility] CT CHEST W CONTRAST 2021-08-20 Kaitlin Thompson V. [facility] 16:32:00 [facility] POC CREATININE 2021-08-20 Provider, Unknown [facility] 16:03:00 [facility] COMPLETE BLOOD COUNT W/ 2021-08-20 Kaitlin Thompson V. [facility] DIFFERENTIAL 15:23:36 [facility] COMPREHENSIVE METABOLIC PANEL 2021-08-20 Kaitlin Thompson V. [facility] 15:23:36 [facility] MAGNESIUM LEVEL 2021-08-20 Kaitlin Thompson V. [facility] 15:23:36 [facility] THYROID STIMULATING HORMONE 2021-08-20 Kaitlin Thompson V. [facility] 15:23:36 [facility] FREE THYROXINE 2021-08-20 Kaitlin Thompson V. [facility] 15:23:36 [facility] Results CBC 2021-08-20 Kaitlin Thompson V. [facility] 15:23:36 [facility] MANUAL DIFFERENTIAL 2021-08-20 Kaitlin Thompson V. [facility] 15:23:36 [facility] GLUCOSE LEVEL 2021-08-20 Kaitlin Thompson V. [facility] 15:23:36 [facility] BLOOD UREA NITROGEN 2021-08-20 Kaitlin Thompson V. [facility] 15:23:36 [facility] ELECTROLYTE PANEL 2021-08-20 Kaitlin Thompson V. [facility] 15:23:36 [facility] SERUM CREATININE 2021-08-20 Kaitlin Thompson V. [facility] 15:23:36 [facility] .GLOMERULAR FILTRATION RATE 2021-08-20 Kaitlin Thompson V. [facility] 15:23:36 [facility] CALCIUM LEVEL TOTAL 2021-08-20 Kaitlin Thompson V. [facility] 15:23:36 [facility] ALBUMIN LEVEL 2021-08-20 Kaitlin Thompson V. [facility] 15:23:36 [facility] ALKALINE PHOSPHATASE 2021-08-20 Kaitlin Thompson V. [facility] 15:23:36 [facility] ALANINE AMINOTRANSFERASE 2021-08-20 Kaitlin Thompson V. [facility] 15:23:36 [facility] ASPARTATE AMINOTRANSFERASE 2021-08-20 Kaitlin Thompson V. [facility] 15:23:36 [facility] TOTAL PROTEIN 2021-08-20 Kaitlin Thompson V. [facility] 15:23:36 [facility] FRACTIONATED BILIRUBIN 2021-08-20 Kaitlin Thompson V. [facility] 15:23:36 [facility] COMPLETE BLOOD COUNT W/ 2021-07-24 Kaitlin Thompson V. [facility] DIFFERENTIAL 19:10:00 [facility] COMPREHENSIVE METABOLIC PANEL 2021-07-24 Kaitlin Thompson V. [facility] 19:10:00 [facility] MAGNESIUM LEVEL 2021-07-24 Kaitlin Thompson V. [facility] 19:10:00 [facility] Results CBC 2021-07-24 Kaitlin Thompson V. [facility] 19:10:00 [facility] MANUAL DIFFERENTIAL 2021-07-24 Kaitlin Thompson V. [facility] 19:10:00 [facility] GLUCOSE LEVEL 2021-07-24 Kaitlin Thompson V. [facility] 19:10:00 [facility] BLOOD UREA NITROGEN 2021-07-24 Kaitlin Thompson V. [facility] 19:10:00 [facility] ELECTROLYTE PANEL 2021-07-24 Kaitlin Thompson V. [facility] 19:10:00 [facility] SERUM CREATININE 2021-07-24 Kaitlin Thompson V. [facility] 19:10:00 [facility] .GLOMERULAR FILTRATION RATE 2021-07-24 Kaitlin Thompson V. [facility] 19:10:00 [facility] CALCIUM LEVEL TOTAL 2021-07-24 Kaitlin Thompson V. [facility] 19:10:00 [facility] ALBUMIN LEVEL 2021-07-24 Kaitlin Thompson V. [facility] 19:10:00 [facility] ALKALINE PHOSPHATASE 2021-07-24 Kaitlin Thompson V. [facility] 19:10:00 [facility] ALANINE AMINOTRANSFERASE 2021-07-24 Kaitlin Thompson V. [facility] 19:10:00 [facility] ASPARTATE AMINOTRANSFERASE 2021-07-24 Kaitlin Thompson V. [facility] 19:10:00 [facility] TOTAL PROTEIN 2021-07-24 Kaitlin Thompson V. [facility] 19:10:00 [facility] FRACTIONATED BILIRUBIN 2021-07-24 Kaitlin Thompson V. [facility] 19:10:00 [facility] CT CHEST ABDOMEN W CONTRAST 2021-06-25 [facility] COMPLETE BLOOD COUNT W/ 2021-06-25 Kaitlin Thompson V. [facility] DIFFERENTIAL 13:36:16 [facility] COMPREHENSIVE METABOLIC PANEL 2021-06-25 Kaitlin Thompson V. [facility] 13:36:16 [facility] MAGNESIUM LEVEL 2021-06-25 Kaitlin Thompson V. [facility] 13:36:16 [facility] THYROID STIMULATING HORMONE 2021-06-25 Kaitlin Thompson V. [facility] 13:36:16 [facility] FREE THYROXINE 2021-06-25 Kaitlin Thompson V. [facility] 13:36:16 [facility] Results CBC 2021-06-25 [facility]16 [facility] MANUAL DIFFERENTIAL 2021-06-25 [facility] 13:36:16 [facility] GLUCOSE LEVEL 2021-06-25 Kaitlin Thompson V. [facility] 13:36:16 [facility] BLOOD UREA NITROGEN 2021-06-25 [facility] 13:36:16 [facility] ELECTROLYTE PANEL 2021-06-25 [facility] 13:36[facility]16 [facility] SERUM CREATININE 2021-06-25 Kaitlin Thompson V. [facility] 13:36:16 [facility] .GLOMERULAR FILTRATION RATE 2021-06-25 Kaitlin Thompson V. [facility] 13:36:16 [facility] CALCIUM LEVEL TOTAL 2021-06-25 [facility] 13:36:16 [facility] ALBUMIN LEVEL 2021-06-25 [facility] 13:36:16 [facility] ALKALINE PHOSPHATASE 2021-06-25 Kaitlin Thompson V. [facility] 13:36:16 [facility] ALANINE AMINOTRANSFERASE 2021-06-25 Kaitlin Thompson V. [facility] 13:36:16 [facility] ASPARTATE AMINOTRANSFERASE 2021-06-25 Kaitlin Thompson V. [facility] 13:36:16 [facility] TOTAL PROTEIN 2021-06-25 Kaitlin Thompson V. [facility] 13:36:16 [facility] FRACTIONATED BILIRUBIN 2021-06-25 Kaitlin Thompson V. [facility] 13:36:16 [facility] Encounters Start End Encounter Admission Attending Care Care Encounter Source Date/Time Date/Time Type Type Clinicians Facility Department ID 2022-01-06 Outpatient SYSTEM, [facility] [id number] 07:00:44 PROVIDER Mustapha sol 2022-06-03 2022-06-03 Telephone Jerod, 1.2.840.1 [id number] Univers 00:00:00 00:00:00 Gabriel August 88914.1.1 it y of 3.412.2.7 [place] .3.421285 MD Ricketts8 [facility] 2022-05-29 2022-05-29 Orders Vidhi, 1.2.840.1 [id number] Univers 00:00:00 00:00:00 Only Nicolette 95661.1.1 it y of 3.412.2.7 [place] .3.726897 MD Ricketts8 [facility] 2022-05-28 2022-05-28 Orders Vidhi, 1.2.840.1 [id number] Univers 00:00:00 00:00:00 Only Nicolette 79075.1.1 it y of 3.412.2.7 [place] .3.757494 MD Song [facility] 2022-05-27 2022-05-27 Orders Ramy, 1.2.840.1 [id number] Univers 00:00:00 00:00:00 Only Ricardo Chilel 91504.1.1 ity of 3.412.2.7 [place] .3.581770 MD Song [facility] 2022-05-27 2022-05-27 Telephone Wilian, 1.2.840.1 [id number] [id number] Univers 00:00:00 00:00:00 Rosalia 33133.1.1 it y of 3.412.2.7 [place] .3.748327 MD Ricketts8 [facility] 2022-05-24 2022-05-24 Nurse Morris, 1.2.840.1 [id number] Univers 00:00:00 00:00:00 Triage Amsha 05757.1.1 ity of 3.412.2.7 [place] .3.197000 MD Ricketts8 [facility] 2022-05-24 2022-05-24 Nurse Morris, 1.2.840.1 [id number] Univers 00:00:00 00:00:00 Triage Amsha 85352.1.1 ity of 3.412.2.7 [place] .3.328935 MD Ricketts8 [facility] 2022-05-22 2022-05-22 Telemedici JAMES Bass, 1.2.840.1 [id number] Univers 10:30:00 10:41:31 ne [place] 86945.1.1 ity of 3.412.2.7 [place] .3.657263 MD Ricketts8 [facility] 2022-05-22 2022-05-22 Telemedici Danalberto, 1.2.840.1 [id number] Univers 10:30:00 10:41:31 ne [place] 40026.1.1 ity of 3.412.2.7 [place] .3.490476 MD Ricketts8 [facility] 2022-05-22 2022-05-22 Telephone Shed, 1.2.840.1 [id number] [id number] Univers 00:00:00 00:00:00 Ricardo E 52223.1.1 ity of 3.412.2.7 [place] .3.791481 MD Ricketts8 [facility] 2022-05-22 2022-05-22 Telephone Wilian, 1.2.840.1 [id number] 1096 [id number] Univers 00:00:00 00:00:00 Rosalia 46956.1.1 it y of 3.412.2.7 [place] .3.908323 MD Ricketts8 [facility] 2022-05-22 2022-05-22 Telephone Wilian, 1.2.840.1 [id number] 1096 [id number] Univers 00:00:00 00:00:00 Rosalia 22900.1.1 it y of 3.412.2.7 [place] .3.457802 MD Ricketts8 [facility] 2022-05-22 2022-05-22 Telephone Shed, 1.2.840.1 [id number] 1096 [id number] Univers 00:00:00 00:00:00 Ricardo Chilel 49644.1.1 ity of 3.412.2.7 [place] .3.403741 MD Ricketts8 [facility] 2022-05-21 2022-05-21 Clinical EL Ricardo Mccann 1.2.840.1 [id number] Univers 10:00:00 11:39:56 Support Rosalia Cedeno 76586.1.1 ity of 3.412.2.7 [place] .3.588431 MD Ricketts8 [facility] 2022-05-21 2022-05-21 Clinical RamyRicardo 1.2.840.1 [id number] Univers 10:00:00 11:39:56 Support Rosalia Cedeno 66434.1.1 ity of 3.412.2.7 [place] .3.623187 MD Ricketts8 [facility] 2022-05-21 2022-05-21 Travel 1.2.840.1 1.2.315.142 4403 [id number] Univers 00:00:00 00:00:00 59301.1.1 350.1.13.41 ity of 3.412.2.7 2.[place]7.3.698 [place] .3.918533 08Enio.8 MD Ricketts8 [facility] 2022-05-21 2022-05-21 Travel 1.2.840.1 1.2.063.179 0071 [id number] Univers 00:00:00 00:00:00 50463.1.1 350.1.13.41 ity of 3.412.2.7 2.[place]7.3.698 [place] .3.880842 084.8 MD Song [facility] 2022-05-20 2022-05-20 Telephone Wilian, 1.2.840.1 [id number] 1096 [id number] Univers 00:00:00 00:00:00 Rosalia 50003.1.1 it y of 3.412.2.7 [place] .3.800500 MD Ricketts8 [facility] 2022-05-20 2022-05-20 Telephone Wilian, 1.2.840.1 [id number] 1096 [id number] Univers 00:00:00 00:00:00 Rosalia 21290.1.1 it y of 3.412.2.7 [place] .3.445703 MD Song [facility] 2022-05-20 2022-05-20 Orders Shed, 1.2.840.1 [id number] Univers 00:00:00 00:00:00 Only Ricardo E 83518.1.1 ity of 3.412.2.7 [place] .3.382812 MD Song [facility] 2022-05-20 2022-05-20 Orders Shed, 1.2.840.1 [id number] Univers 00:00:00 00:00:00 Only Ricardo E 10099.1.1 ity of 3.412.2.7 [place] .3.557397 MD Song [facility] 2022-05-20 2022-05-20 Telephone Wilian, 1.2.840.1 [id number] 1096 [id number] Univers 00:00:00 00:00:00 Rosalia 16496.1.1 it y of 3.412.2.7 [place] .3.629560 MD Ricketts8 [facility] 2022-05-20 2022-05-20 Telephone Wilian, 1.2.840.1 [id number] 1096 [id number] Univers 00:00:00 00:00:00 Rosalia 55047.1.1 it y of 3.412.2.7 [place] .3.888211 MD Song [facility] 2022-05-132022-05-13 Telephone Wilian, 1.2.840.1 [id number] 1095 [id number] Univers 00:00:00 00:00:00 Rosalia 56532.1.1 it y of 3.412.2.7 [place] .3.064711 MD Song [facility] 2022-05-13 2022-05-13 Orders Shed, 1.2.840.1 [id number] Univers 00:00:00 00:00:00 Only Ricardo E 49270.1.1 ity of 3.412.2.7 [place] .3.343530 MD Ricketts8 [facility] 2022-05-13 2022-05-13 Telephone Wilian, 1.2.840.1 [id number] 1095 [id number] Univers 00:00:00 00:00:00 Rosalia 47222.1.1 it y of 3.412.2.7 [place] .3.503605 MD Ricketts8 [facility] 2022-05-13 2022-05-13 Telephone Wilian, 1.2.840.1 [id number] 1095 [id number] Univers 00:00:00 00:00:00 Rosalia 57252.1.1 it y of 3.412.2.7 [place] .3.177248 MD Ricketts8 [facility] 2022-05-13 2022-05-13 Orders Shed, 1.2.840.1 [id number] Univers 00:00:00 00:00:00 Only Ricardo E 84169.1.1 ity of 3.412.2.7 [place] .3.924811 MD Song [facility] 2022-05-13 2022-05-13 Telephone Wilian, 1.2.840.1 [id number] 1095 [id number] Univers 00:00:00 00:00:00 Rosalia 26951.1.1 it y of 3.412.2.7 [place] .3.291845 MD Ricketts8 [facility] 2022-05-02 2022-05-02 Telephone Shed, 1.2.840.1 [id number] 1095 [id number] Univers 00:00:00 00:00:00 Ricardo E 08746.1.1 ity of 3.412.2.7 [place] .3.078365 MD Ricketts8 [facility] 2022-05-02 2022-05-02 Orders Adibi, 1.2.840.1 [id number] Univers 00:00:00 00:00:00 Only Mehrad 15368.1.1 ity of 3.412.2.7 [place] .3.172136 MD Ricketts8 [facility] 2022-05-02 2022-05-02 Telephone Shed, 1.2.840.1 [id number] 1095 [id number] Univers 00:00:00 00:00:00 Ricardo E 09328.1.1 ity of 3.412.2.7 [place] .3.599749 MD Ricketts8 [facility] 2022-05-02 2022-05-02 Orders Adibi, 1.2.840.1 [id number] Univers 00:00:00 00:00:00 Only Mehrad 72214.1.1 ity of 3.412.2.7 [place] .3.728758 MD Ricketts8 [facility] 2022-05-01 2022-05-01 FabienedicKyle Oleary 1.2.840.1 [id number] Univers 11:40:00 11:49:34 ne Rp 61923.1.1 ity of 3.412.2.7 [place] .3.128359 MD Ricketts8 [facility] 2022-05-01 2022-05-01 TelemKyle Prince 1.2.840.1 [id number] Univers 11:40:00 11:49:34 ne Rp 71543.1.1 ity of 3.412.2.7 [place] .3.002341 MD Ricketts8 [facility] 2022-05-01 2022-05-01 Telephone Shed, 1.2.840.1 [id number] 1095 [id number] Univers 00:00:00 00:00:00 Ricardo E 32650.1.1 ity of 3.412.2.7 [place] .3.990856 MD Song [facility] 2022-05-01 2022-05-01 Telephone Shed, 1.2.840.1 [id number] 1095 [id number] Univers 00:00:00 00:00:00 Ricardo E 27879.1.1 ity of 3.412.2.7 [place] .3.216624 MD Song [facility] 2022-05-01 2022-05-01 Orders Shed, 1.2.840.1 [id number] Univers 00:00:00 00:00:00 Only Ricardo E 36620.1.1 ity of 3.412.2.7 [place] .3.055995 MD Song [facility] 2022-05-01 2022-05-01 Telephone Shed, 1.2.840.1 [id number] 1095 [id number] Univers 00:00:00 00:00:00 Ricardo E 43395.1.1 ity of 3.412.2.7 [place] .3.378390 MD Song [facility] 2022-05-01 2022-05-01 Telephone Shed, 1.2.840.1 [id number] 1095 [id number] Univers 00:00:00 00:00:00 Ricardo E 30483.1.1 ity of 3.412.2.7 [place] .3.577442 MD Song [facility] 2022-05-01 2022-05-01 Orders Shed, 1.2.840.1 [id number] Univers 00:00:00 00:00:00 Only Ricardo E 10268.1.1 ity of 3.412.2.7 [place] .3.497650 MD Song [facility] 2022-04-21 2022-04-21 Infusion JAMES Thompson, 1.2.840.1 [id number] [id number] Univers 11:15:00 13:09:07 Kaitlin Cisse 85581.1.1 ity of 3.412.2.7 [place] .3.376192 MD Song [facility] 2022-04-21 2022-04-21 Infusion Veewild, 1.2.840.1 [id number] Univers 11:15:00 13:09:07 Katilin Cisse 19252.1.1 ity of 3.412.2.7 [place] .3.013133 MD Song [facility] 2022-04-21 2022-04-21 Travel 1.2.840.1 1.2.893.944 7530 [id number] Univers 00:00:00 00:00:00 88822.1.1 350.1.13.41 ity of 3.412.2.7 2.[place]7.3.698 [place] .3.598849 084.8 MD Song [facility] 2022-04-21 2022-04-21 Travel 1.2.840.1 1.2.457.479 9543 [id number] Univers 00:00:00 00:00:00 12813.1.1 350.1.13.41 ity of 3.412.2.7 2.2.7.3.698 [place] .3.009826 084.Randi Song [facility] 2022-04-18 2022-04-18 Orders Francisco, 1.2.840.1 [id number] Univers 00:00:00 00:00:00 Only Eileen Cordero 41417.1.1 ity of 3.412.2.7 [place] .3.086536 MD Song [facility] 2022-04-18 2022-04-18 Orders Francisco, 1.2.840.1 [id number] Univers 00:00:00 00:00:00 Only Eileen Cordero 79463.1.1 ity of 3.412.2.7 [place] .3.291108 MD Song [facility] 2022-04-17 2022-04-17 Telemedici JAMES Deidra, 1.2.840.1 [id number] 1 [id number] Univers 11:00:00 11:30:00 ne Kaitlin Cisse 48916.1.1 ity of 3.412.2.7 [place] .3.968909 MD Song [facility] 2022-04-17 2022-04-17 Telemdeisy Deidra, 1.2.840.1 [id number] 1 [id number] Univers 11:00:00 11:30:00 ne Kaitlin Cisse 08159.1.1 ity of 3.412.2.7 [place] .3.320599 MD Ricketts8 [facility] 2022-04-14 2022-04-14 Clinical EL Ricardo Mccann 1.2.840.1 [id number] Univers 10:30:00 11:00:00 Support Rosalia Cedeno 28331.1.1 ity of 3.412.2.7 [place] .3.858742 MD Ricketts8 [facility] 2022-04-14 2022-04-14 Clinical Ricardo Mccann 1.2.840.1 [id number] Univers 10:30:00 11:00:00 Support Rosalia Cedeno 59353.1.1 ity of 3.412.2.7 [place] .3.359282 MD Ricketts8 [facility] 2022-04-14 2022-04-14 Outpatient JAMES THOMPSON, [facility] [id number] 10:53:38 10:54:04 KAITLIN Mustapha [facility] 2022-04-14 2022-04-14 Travel 1.2.840.1 1.2.657.238 0203 [id number] Univers 00:00:00 00:00:00 82687.1.1 350.1.13.41 ity of 3.412.2.7 2.2.7.3.698 [place] .3.801291 084.8 MD Ricketts8 [facility] 2022-04-14 2022-04-14 Travel 1.2.840.1 1.2.354.717 2307 [id number] Univers 00:00:00 00:00:00 99767.1.1 350.1.13.41 ity of 3.412.2.7 2.2.7.3.698 [place] .3.152145 084.8 MD Ricketts8 [facility] 2022-04-11 2022-04-11 Orders Jaison, 1.2.840.1 [id number] Univers 00:00:00 00:00:00 Only Bria L 17373.1.1 ity of 3.412.2.7 [place] .3.954301 MD Song [facility] 2022-04-11 2022-04-11 Orders Jaison, 1.2.840.1 [id number] Univers 00:00:00 00:00:00 Only Bria L 34597.1.1 ity of 3.412.2.7 [place] .3.173784 MD Song [facility] 2022-04-10 2022-04-10 Orders Jaison, 1.2.840.1 [id number] Univers 00:00:00 00:00:00 Only Bria L 60543.1.1 ity of 3.412.2.7 [place] .3.675717 MD Song [facility] 2022-04-10 2022-04-10 Orders Jaison, 1.2.840.1 [id number] Univers 00:00:00 00:00:00 Only Bria L 82242.1.1 ity of 3.412.2.7 [place] .3.338909 MD Song [facility] 2022-04-06 2022-04-08 Emergency Derik Winslow 1.2.840.1 [id number] Univers 17:28:00 17:35:00 Elvin Diez 19691.1.1 ity of [place] 3.412.2.7 [place] .3.974987 MD Song [facility] 2022-04-06 2022-04-08 Emergency Derik Winslow 1.2.840.1 [id number] Univers 17:28:00 17:35:00 Elvin Diez 62549.1.1 ity of [place] 3.412.2.7 [place] .3.573808 MD .8 [facility] 2022-04-08 2022-04-08 Orders Shed, 1.2.840.1 [id number] Univers 00:00:00 00:00:00 Only Ricardo Chilel 91244.1.1 ity of 3.412.2.7 [place] .3.223308 MD Song [facility] 2022-04-08 2022-04-08 Orders Shed, 1.2.840.1 [id number] Univers 00:00:00 00:00:00 Only Ricardo Chilel 05486.1.1 ity of 3.412.2.7 [place] .3.827895 MD Song [facility] 2022-04-06 2022-04-06 Travel 1.2.840.1 1.2.191.468 7138 [id number] Univers 00:00:00 00:00:00 72796.1.1 350.1.13.41 ity of 3.412.2.7 2.2.7.3.698 [place] .3.372585 084.8 MD Song [facility] 2022-04-06 2022-04-06 Telephone Ren Walker 1.2.840.1 [id number] Univers 00:00:00 00:00:00 00321.1.1 ity of 3.412.2.7 [place] .3.834591 MD Song [facility] 2022-04-06 2022-04-06 Nurse Padilla, 1.2.840.1 [id number] Univers 00:00:00 00:00:00 Triage Loren 54201.1.1 ity of [place] 3.412.2.7 Jared as .3.366525 MD Song [facility] 2022-04-06 2022-04-06 Nurse Axel 1.2.840.1 [id number] Univers 00:00:00 00:00:00 Triage Nicolette F 17474.1.1 ity of 3.412.2.7 [place] .3.046310 MD Song [facility] 2022-04-06 2022-04-06 Travel 1.2.840.1 1.2.828.141 1211 [id number] Univers 00:00:00 00:00:00 12169.1.1 350.1.13.41 ity of 3.412.2.7 2.2.7.3.698 [place] .3.413885 084.8 MD Ricketts8 [facility] 2022-04-06 2022-04-06 Telephone Ren Walker 1.2.840.1 [id number] 1 [id number] Univers 00:00:00 00:00:00 04742.1.1 ity of 3.412.2.7 [place] .3.099886 MD Song [facility] 2022-04-06 2022-04-06 Nurse Valerie, 1.2.840.1 [id number] Univers 00:00:00 00:00:00 Triage Loren 68549.1.1 ity of [place] 3.412.2.7 Jared as .3.112386 MD Ricketts8 [facility] 2022-04-06 2022-04-06 Nurse Axel, 1.2.840.1 [id number] Univers 00:00:00 00:00:00 Triage Nicolette F 24025.1.1 ity of 3.412.2.7 [place] .3.685357 MD Song [facility] 2022-04-03 2022-04-03 Clinical Ricardo Mccann 1.2.840.1 [id number] Univers 10:30:00 11:54:36 Support Gabriel Newsome 14115.1.1 ity of 3.412.2.7 [place] .3.324621 MD Song [facility] 2022-04-03 2022-04-03 Clinical EL Ricardo Mccann 1.2.840.1 [id number] Univers 10:30:00 11:54:36 Support Gabriel Newsome 40843.1.1 ity of 3.412.2.7 [place] .3.141270 MD Song [facility] 2022-04-03 2022-04-03 Travel 1.2.840.1 1.2.640.459 8841 [id number] Univers 00:00:00 00:00:00 48988.1.1 350.1.13.41 ity of 3.412.2.7 2.2.7.3.698 [place] .3.220096 084.8 MD Song [facility] 2022-04-03 2022-04-03 Travel 1.2.840.1 1.2.538.367 5466 [id number] Univers 00:00:00 00:00:00 76298.1.1 350.1.13.41 ity of 3.412.2.7 2.2.7.3.698 [place] .3.013471 084.8 MD Song [facility] 2022-04-02 2022-04-02 Orders Shed, 1.2.840.1 [id number] Univers 00:00:00 00:00:00 Only Ricardo Chilel 95703.1.1 ity of 3.412.2.7 [place] .3.308709 MD Song [facility] 2022-04-02 2022-04-02 Orders Shed, 1.2.840.1 [id number] Univers 00:00:00 00:00:00 Only Ricardo Chilel 86203.1.1 ity of 3.412.2.7 [place] .3.417768 MD Song [facility] 2022-04-01 2022-04-01 Telephone Placido, 1.2.840.1 [id number] 050 [id number] Univers 00:00:00 00:00:00 Karine Oakes 81713.1.1 ity of 3.412.2.7 [place] .3.798550 MD Song [facility] 2022-04-01 2022-04-01 Orders Vidhi, 1.2.840.1 [id number] Univers 00:00:00 00:00:00 Only Nicolette 96282.1.1 it y of 3.412.2.7 [place] .3iLliam146836 MD Ricketts8 [facility] 2022-04-01 2022-04-01 Telephone Placido, 1.2.840.1 [id number] [id number] Univers 00:00:00 00:00:00 Karine Oakes 56214.1.1 ity of 3.412.2.7 [place] .3.410434 MD Ricketts8 [facility] 2022-04-01 2022-04-01 Orders Vidhi, 1.2.840.1 [id number] Univers 00:00:00 00:00:00 Only Nicolette 41749.1.1 it y of 3.412.2.7 [place] .3.636234 MD Song [facility] 2022-03-31 2022-03-31 [facility], 1.2.840.1 [id number] Univers 10:09:00 19:19:00 Encounter Mehrad 75264.1.1 it y of 3.412.2.7 [place] .3.350333 MD Ricketts8 [facility] 2022-03-31 2022-03-31 [facility], 1.2.840.1 [id number] Univers 10:09:00 19:19:00 Encounter Mehrad 25095.1.1 it y of 3.412.2.7 [place] .3.107978 MD Ricketts8 [facility] 2022-03-31 2022-03-31 Surgery [facility], 1.2.840.1 [id number] Univers 14:50:00 17:50:00 Mehrad 29725.1.1 ity of 3.412.2.7 [place] .3Liliam408884 MD Song [facility] 2022-03-31 2022-03-31 Surgery [facility], 1.2.840.1 [id number] Univers 14:50:00 17:50:00 Mehrad 56722.1.1 ity of 3.412.2.7 [place] .3.087312 .8 [facility] 2022-03-31 2022-03-31 Anesthesia Chris, 1.2.840.1 [id number] 1 [id number] [facility] 15:34:00 16:59:00 Event Alberto 65076.1.1 ity of Dianelys 3.412.2.7 [place] .3.565498 .8 [facility] 2022-03-31 2022-03-31 Anesthesia Chris, 1.2.840.1 [id number] 1 [id number] [facility] 15:34:00 16:59:00 Event Alberto 85337.1.1 ity of Dianeyls 3.412.2.7 [place] .3.805419 MD Ricketts8 [facility] 2022-03-31 2022-03-31 Telephone Andrews, 1.2.840.1 [id number] [facility] 00:00:00 00:00:00 Saige N 84050.1.1 ity of 3.412.2.7 [place] .3.750213 MD Ricketts8 [facility] 2022-03-31 2022-03-31 Travel 1.2.840.1 1.2.502.628 [id number] [facility] 00:00:00 00:00:00 77723.1.1 350.1.13.41 ity of 3.412.2.7 [place]3.698 [place] .3.179003 084.8 MD Song [facility] 2022-03-31 2022-03-31 Telephone Andrews, 1.2.840.1 [id number] [facility] 00:00:00 00:00:00 Saige N 82022.1.1 ity of 3.412.2.7 [place] .3.791369 MD Song [facility] 2022-03-31 2022-03-31 Travel 1.2.840.1 1.2.031.128 [id number] [facility] 00:00:00 00:00:00 06496.1.1 350.1.13.41 ity of 3.412.2.[place]3.698 [place] .3.877177 084.8 .8 [facility] 2022-03-28 2022-03-28 Anesthesia Lenka Chau 1.2.840.1 [id number] Univers 23:59:59 23:59:59 Event Y 45583.1.1 ity of 3.412.2.7 [place] .3.389209 .8 [facility] 2022-03-28 2022-03-28 Anesthesia Lenka Chau 1.2.840.1 [id number] Univers 23:59:59 23:59:59 Event Y 22415.1.1 ity of 3.412.2.7 [place] .3.717083 MD Ricketts8 [facility] 2022-03-28 2022-03-28 POEM Shed, 1.2.840.1 [id number] [facility] 15:00:00 15:30:00 Appointmen Ricardo Chilel 28236.1.1 ity of ts 3.412.2.7 [place] .3.567102 MD Ricketts8 [facility] 2022-03-28 2022-03-28 POEM EL Shed, 1.2.840.1 [id number] [facility] 15:00:00 15:30:00 Appointmen Ricardo Chilel 16695.1.1 ity of ts 3.412.2.7 [place] .3.708096 MD Ricketts8 [facility] 2022-03-28 2022-03-28 Clinical ShedRicardo 1.2.840.1 [id number] [facility] 11:30:00 11:30:00 Support Samuel Burger 09054.1.1 ity of 3.412.2.7 [place] .3.929225 MD Ricketts8 [facility] 2022-03-28 2022-03-28 Clinical EL Ricardo Mccann 1.2.840.1 [id number] 2 [id number] Univers 11:30:00 11:30:00 Support Samuel Burger 42332.1.1 ity of 3.412.2.7 [place] .3.566046 MD Song [facility] 2022-03-28 2022-03-28 Outpatient JAMES MCCANN MDA MDA [id number] 428 10:42:44 10:45:44 RICARDO Luciano nadeem sol 2022-03-28 2022-03-28 Orders Shed, 1.2.840.1 [id number] Univers 00:00:00 00:00:00 Only Ricardo Chilel 44071.1.1 ity of 3.412.2.7 [place] .3.810414 MD Ricketts8 [facility] 2022-03-28 2022-03-28 Travel 1.2.840.1 1.2.606.632 5704 202021 Univers 00:00:00 00:00:00 09681.1.1 350.1.13.41 ity of 3.412.2.7 [place]7.3.698 [place] .3.178451 084.8 MD Song [facility] 2022-03-28 2022-03-28 Orders Shed, 1.2.840.1 [id number] 3526 Univers 00:00:00 00:00:00 Only Ricardo Chilel 60699.1.1 ity of 3.412.2.7 [place] .3.440995 MD Song [facility] 2022-03-28 2022-03-28 Travel 1.2.840.1 1.2.924.066 8675 [id number] Univers 00:00:00 00:00:00 41437.1.1 350.1.13.41 ity of 3.412.2.7 2.[place].7.3.698 [place] .3.894046 084.8 MD Ricketts8 [facility] 2022-03-27 2022-03-27 Telemedici Adibi, 1.2.840.1 [id number] 180 [id number] Univers 13:00:00 13:29:05 alfa Matthews 88075.1.1 ity of 3.412.2.7 [place] .3.372547 MD Ricketts8 [facility] 2022-03-27 2022-03-27 Telemedici EL Guevaraibi, 1.2.840.1 [id number] 803 [id number] Univers 13:00:00 13:29:05 ne Merlinguevara 24176.1.1 ity of 3.412.2.7 [place] .3.462159 MD Ricketts8 [facility] 2022-03-27 2022-03-27 Telephone Malik, 1.2.840.1 [id number] 10 [id number] Univers 00:00:00 00:00:00 Marii Shaikh 33221.1.1 ity of 3.412.2.7 [place] .3.992794 MD Ricketts8 [facility] 2022-03-27 2022-03-27 Orders Malik, 1.2.840.1 [id number] 1094 [id number] Univers 00:00:00 00:00:00 Only Marii Shaikh 57939.1.1 ity of 3.412.2.7 [place] .3.300274 MD Ricketts8 [facility] 2022-03-27 2022-03-27 Telephone Malik, 1.2.840.1 [id number] 10 [id number] Univers 00:00:00 00:00:00 Marii D 59849.1.1 ity of 3.412.2.7 [place] .3.995102 MD Ricketts8 [facility] 2022-03-27 2022-03-27 Orders Malik, 1.2.840.1 [id number] 1094 [id number] Univers 00:00:00 00:00:00 Only Marii D 73420.1.1 ity of 3.412.2.7 [place] .3.987843 MD Ricketts8 [facility] 2022-03-21 2022-03-21 Telephone Wilian, 1.2.840.1 [id number] 1093 [id number] Univers 00:00:00 00:00:00 Rosalia 63729.1.1 it y of 3.412.2.7 [place] .3.856838 MD Ricketts8 [facility] 2022-03-21 2022-03-21 Orders Shed, 1.2.840.1 [id number] 9754 Univers 00:00:00 00:00:00 Only Ricardo Chilel 16380.1.1 ity of 3.412.2.7 [place] .3.268176 MD Ricketts8 [facility] 2022-03-21 2022-03-21 Telephone Wilian, 1.2.840.1 [id number] 1093 [id number] Univers 00:00:00 00:00:00 Rosalia 96617.1.1 it y of 3.412.2.7 [place] .3.658191 MD Ricketts8 [facility] 2022-03-21 2022-03-21 Orders Shed, 1.2.840.1 [id number] [id number] Univers 00:00:00 00:00:00 Only Ricardo Chilel 76429.1.1 ity of 3.412.2.7 [place] .3.063819 MD Ricketts8 [facility] 2022-03-20 2022-03-20 Telephone Blackwood, 1.2.840.1 [id number] 1093 [id number] Univers 00:00:00 00:00:00 Bria Hubbard 57090.1.1 ity of 3.412.2.7 [place] .3.953652 MD Ricketts8 [facility] 2022-03-20 2022-03-20 Orders Shed, 1.2.840.1 [id number] 013331 [id number] Univers 00:00:00 00:00:00 Only Ricardo Chilel 82055.1.1 ity of 3.412.2.7 [place] .3.758093 MD Ricketts8 [facility] 2022-03-20 2022-03-20 Telephone Blackwood, 1.2.840.1 [id number] 1093 [id number] Univers 00:00:00 00:00:00 Bria Hubbard 04476.1.1 ity of 3.412.2.7 [place] .3.297758 MD Ricketts8 [facility] 2022-03-20 2022-03-20 Orders Shed, 1.2.840.1 [id number] 5653 Univers 00:00:00 00:00:00 Only Ricardo Chilel 07701.1.1 ity of 3.412.2.7 [place] .3.470482 MD Song [facility] 2022-03-18 2022-03-18 Consult Kyle Barba 1.2.840.1 [id number] 679 [id number] Univers 15:00:00 15:00:00 Rp 05096.1.1 ity of 3.412.2.7 [place] .3.059947 MD Song [facility] 2022-03-18 2022-03-18 Consult Kyle Barba 1.2.840.1 [id number] 562 [id number] Univers 15:00:00 15:00:00 Rp 44104.1.1 ity of 3.412.2.7 [place] .3.008858 MD Song [facility] 2022-03-18 2022-03-18 Travel 1.2.840.1 1.2.053.021 1789 426843 Univers 00:00:00 00:00:00 35059.1.1 350.1.13.41 ity of 3.412.2.7 2.[place].7.3.698 [place] .3.837297 084.8 MD Song [facility] 2022-03-18 2022-03-18 Travel 1.2.840.1 1.2.757.480 6283 [id number] Univers 00:00:00 00:00:00 89113.1.1 350.1.13.41 ity of 3.412.2.7 2.2.7.3.698 [place] .3.905321 084.8 MD Song [facility] 2022-03-17 2022-03-17 Jordan Blackwood 1.2.840.1 [id number] 0299 Univers 00:00:00 00:00:00 Only Bria Hubbard 67875.1.1 ity of 3.412.2.7 [place] .3.020747 MD Song [facility] 2022-03-17 2022-03-17 Jordan Blackwood 1.2.840.1 [id number] 6921 Univers 00:00:00 00:00:00 Only Bria Hubbard 63117.1.1 ity of 3.412.2.7 [place] .3.515204 MD Song [facility] 2022-03-04 2022-03-04 [facility], 1.2.840.1 [id number] 198 [id number] Univers 07:30:00 23:59:00 Encounter Kaitlin V. 82813.1.1 i ty of 3.412.2.7 [place] .3.191139 MD Ricketts8 [facility] 2022-03-04 2022-03-04 [facility], 1.2.840.1 [id number] 879 [id number] Univers 07:30:00 23:59:00 Encounter Kaitlin V. 90142.1.1 i ty of 3.412.2.7 [place] .3.436576 MD Song [facility] 2022-03-04 2022-03-04 Infusion Fossella, 1.2.840.1 [id number] 050 [id number] Univers 14:30:00 15:30:00 Kaitlin V. 26913.1.1 ity of 3.412.2.7 [place] .3.344409 MD Song [facility] 2022-03-04 2022-03-04 Infusion Fossella, 1.2.840.1 [id number] 266 [id number] Univers 14:30:00 15:30:00 Kaitlin V. 98200.1.1 ity of 3.412.2.7 [place] .3.547380 MD Song [facility] 2022-03-04 2022-03-04 Office Fossella, 1.2.840.1 [id number] 1092 [id number] Univers 08:30:00 10:28:05 Visit Kaitlin V. 09248.1.1 ity of 3.412.2.7 [place] .3.113868 MD Song [facility] 2022-03-04 2022-03-04 Office Fossella, 1.2.840.1 [id number] 1092 [id number] Univers 08:30:00 10:28:05 Visit Kaitlin TannerLiliam 78681.1.1 ity of 3.412.2.7 [place] .3.491286 MD oSng [facility] 2022-03-04 2022-03-04 Orders Deidra, 1.2.840.1 [id number] 1093 [id number] Univers 00:00:00 00:00:00 Only Kaitlin Cisse 49612.1.1 ity of 3.412.2.7 [place] .3.079181 MD Song [facility] 2022-03-04 2022-03-04 Orders Vidhi 1.2.840.1 [id number] 2093 Univers 00:00:00 00:00:00 Only Nicolette 03581.1.1 it y of 3.412.2.7 [place] .3.622578 MD Song [facility] 2022-03-04 2022-03-04 Orders Hans 1.2.840.1 [id number] 7849 Univers 00:00:00 00:00:00 Only Bharaticoriemónica 73557.1.1 ity of 3.412.2.7 [place] .3.009379 MD Song [facility] 2022-03-04 2022-03-04 Travel 1.2.840.1 1.2.510.745 4060 804981 Univers 00:00:00 00:00:00 87023.1.1 350.1.13.41 ity of 3.412.2.7 2.2.7.3.698 [place] .3.364778 084.8 MD Song [facility] 2022-03-04 2022-03-04 Jordan Thompson 1.2.840.1 [id number] 1093 [id number] Univers 00:00:00 00:00:00 Only Kaitlin Cisse 07676.1.1 ity of 3.412.2.7 [place] .3.714787 MD Song [facility] 2022-03-04 2022-03-04 Orders Vidhi, 1.2.840.1 [id number] 2383 Univers 00:00:00 00:00:00 Only Nicolette 98131.1.1 it y of 3.412.2.7 [place] .3.251229 MD Song [facility] 2022-03-04 2022-03-04 Jordan Maxwell, 1.2.840.1 [id number] 5104 Univers 00:00:00 00:00:00 Only Bharaticlementina 85234.1.1 ity of 3.412.2.7 [place] .3.930017 MD Ricketts8 [facility] 2022-03-04 2022-03-04 Travel 1.2.840.1 1.2.172.538 2756 018366 Univers 00:00:00 00:00:00 98337.1.1 350.1.13.41 ity of 3.412.2.7 2.2.7.3.698 [place] .3.831860 084.8 MD Song [facility] 2022-03-03 2022-03-03 Jordan Mosher 1.2.840.1 [id number] [id number] 7054 Univers 00:00:00 00:00:00 Only Nicolette 12975.1.1 it y of 3.412.2.7 [place] .3.452699 MD Song [facility] 2022-03-03 2022-03-03 Jordan Mosher 1.2.840.1 [id number] 7506 Univers 00:00:00 00:00:00 Only Nicolette 22496.1.1 it y of 3.412.2.7 [place] .3.394418 MD Song [facility] 2022-02-27 2022-02-27 Telephone Shed, 1.2.840.1 [id number] 1093 [id number] Univers 00:00:00 00:00:00 Ricardo Chilel 01565.1.1 ity of 3.412.2.7 [place] .3.673375 MD Song [facility] 2022-02-27 2022-02-27 Telephone Shed, 1.2.840.1 [id number] 1093 076387 Univers 00:00:00 00:00:00 Ricardo Chilel 03439.1.1 ity of 3.412.2.7 [place] .3.734174 MD Ricketts8 [facility] 2022-02-26 2022-02-26 Telephone Jerod, 1.2.840.1 [id number] 1093 312948 Univers 00:00:00 00:00:00 Macacarmen T 74711.1.1 it y of 3.412.2.7 [place] .3.276464 .8 [facility] 2022-02-26 2022-02-26 Telephone Jerod, 1.2.840.1 [id number] 1093 878450 Univers 00:00:00 00:00:00 Macacarmen T 85155.1.1 it y of 3.412.2.7 [place] .3.080789 MD Ricketts8 [facility] 2022-02-25 2022-02-25 Telephone Sera Honeycutt 1.2.840.1 [id number] Univers 00:00:00 00:00:00 41704.1.1 ity of 3.412.2.7 [place] .3.881510 .8 [facility] 2022-02-25 2022-02-25 Telephone Sera Honeycutt 1.2.840.1 [id number] Univers 00:00:00 00:00:00 89066.1.1 ity of 3.412.2.7 [place] .3.108512 MD Ricketts8 [facility] 2022-02-24 2022-02-24 Clinical Ricardo Mccann 1.2.840.1 [id number] 6 [id number] Univers 09:30:00 10:36:47 Support Rosalia Cedeno 85330.1.1 ity of 3.412.2.7 [place] .3.411686 MD Ricketts8 [facility] 2022-02-24 2022-02-24 Clinical Ricardo Mccann 1.2.840.1 [id number] 3 [id number] Univers 09:30:00 10:36:47 Support Roslaia Cedeno 87661.1.1 ity of 3.412.2.7 [place] .3Liliam720076 MD Song [facility] 2022-02-24 2022-02-24 Travel 1.2.840.1 1.2.632.045 9782 355618 Univers 00:00:00 00:00:00 14215.1.1 350.1.13.41 ity of 3.412.2.7 2.2.7.3.698 [place] .3.036256 084.8 MD Ricketts8 [facility] 2022-02-24 2022-02-24 Travel 1.2.840.1 1.2.646.991 5544 306538 Univers 00:00:00 00:00:00 45283.1.1 350.1.13.41 ity of 3.412.2.7 2.2.7.3.698 [place] .3.104565 084.8 MD Song [facility] 2022-02-22 2022-02-22 Valerie, 1.2.840.1 [id number] 70726 24850 Univers 00:00:00 00:00:00 Triage Loren 88834.1.1 ity of [place] 3.412.2.7 Jared as .3.017937 MD Song [facility] 2022-02-22 2022-02-22 [facility], 1.2.840.1 [id number] 67819 Univers 00:00:00 00:00:00 Triage Loren 67645.1.1 ity of [place] 3.412.2.7 Jared as .3.299948 MD Song [facility] 2022-02-21 2022-02-21 Telephone Shed, 1.2.840.1 [id number] 1092 [id number] Univers 00:00:00 00:00:00 Ricardo E 16997.1.1 ity of 3.412.2.7 [place] .3.095757 MD Song [facility] 2022-02-21 2022-02-21 Telephone Shed, 1.2.840.1 [id number] 1092 [id number] Univers 00:00:00 00:00:00 Ricardo E 99889.1.1 ity of 3.412.2.7 [place] .3Liliam464052 MD Ricketts8 [facility] 2022-02-19 2022-02-20 [facility], 1.2.840.1 [id number] 08922 Univers 08:02:00 10:45:00 Encounter Mehrad 56937.1.1 it y of 3.412.2.7 [place] .3Liliam104367 MD Ricketts8 [facility] 2022-02-19 2022-02-20 [facility], 1.2.840.1 [id number] 78847 Univers 08:02:00 10:45:00 Encounter Merajesh 05788.1.1 it y of 3.412.2.7 [place] .3Gilma560087 MD Song [facility] 2022-02-19 2022-02-19 Anesthesia Chi Doyle 1.2.840.1 [id number] 5 [id number] Univers 11:05:00 13:15:00 Event Stacie Grmim 19023.1.1 ity of 3.412.2.7 [place] .3Liliam838121 MD Ricketts8 [facility] 2022-02-19 2022-02-19 Anesthesia Chi Doyle 1.2.840.1 [id number] 5 [id number] Univers 11:05:00 13:15:00 Event Stacie Grimm 54720.1.1 ity of 3.412.2.7 [place] .3.840527 MD Ricketts8 [facility] 2022-02-19 2022-02-19 Surgery Adibi, 1.2.840.1 [id number] 7008 Univers 10:25:00 11:30:00 Mehrad 88468.1.1 ity of 3.412.2.7 [place] .3Liliam678578 MD Song [facility] 2022-02-19 2022-02-19 Surgery Adibi, 1.2.840.1 [id number] 2889 Univers 10:25:00 11:30:00 Mehrad 06953.1.1 ity of 3.412.2.7 [place] .3.248757 MD Song [facility] 2022-02-19 2022-02-19 Orders Shed, 1.2.840.1 [id number] Univers 00:00:00 00:00:00 Only Ricardo Chilel 38372.1.1 ity of 3.412.2.7 [place] .3.988677 MD Ricketts8 [facility] 2022-02-19 2022-02-19 Travel 1.2.840.1 1.2.139.866 7536 732736 Univers 00:00:00 00:00:00 33269.1.1 350.1.13.41 ity of 3.412.2.7 2.2.7.3.698 [place] .3.833932 084.8 MD Song [facility] 2022-02-19 2022-02-19 Orders Shed, 1.2.840.1 [id number] [id number] 3945 Univers 00:00:00 00:00:00 Only Ricardo Chilel 33841.1.1 ity of 3.412.2.7 [place] .3.387841 MD Song [facility] 2022-02-19 2022-02-19 Travel 1.2.840.1 1.2.895.758 9539 981753 Univers 00:00:00 00:00:00 43949.1.1 350.1.13.41 ity of 3.412.2.7 2.2.7.3.698 [place] .3.875371 084.8 MD Song [facility] 2022-02-18 2022-02-18 Anesthesia Leny, 1.2.840.1 [id number] 260 [id number] Univers 23:59:59 23:59:59 Event Jonah Murray 89875.1.1 ity of 3.412.2.7 [place] .3.449915 MD Song [facility] 2022-02-18 2022-02-18 Anesthesia Leny, 1.2.840.1 [id number] 458 [id number] Univers 23:59:59 23:59:59 Event Jonah Murray 82851.1.1 ity of 3.412.2.7 [place] .3.316843 MD Song [facility] 2022-02-18 2022-02-18 POEM Papadopoulo 1.2.840.1 [id number] 10 [id number] Univers 09:00:00 09:30:00 Leonard Andres 39799.1.1 i ty of ts 3.412.2.7 [place] .3.104173 MD Song [facility] 2022-02-18 2022-02-18 POEM Papadopoulo 1.2.840.1 [id number] 10 [id number] Univers 09:00:00 09:30:00 Leonard Andres 94611.1.1 i ty of ts 3.412.2.7 [place] .3.958092 MD Song [facility] 2022-02-18 2022-02-18 Ancillary Shed, 1.2.840.1 [id number] 1092 [id number] Univers 07:00:00 09:00:00 Procedure Ricardo Chilel 74758.1.1 i ty of 3.412.2.7 [place] .3.610383 MD Song [facility] 2022-02-18 2022-02-18 Ancillary Shed, 1.2.840.1 [id number] 1092 [id number] Univers 07:00:00 09:00:00 Procedure Ricardo Chilel 89965.1.1 i ty of 3.412.2.7 [place] .3.570815 MD Song [facility] 2022-02-18 2022-02-18 Orders Cr, 1.2.840.1 [id number] 3462 Univers 00:00:00 00:00:00 Only Joel Rosas 82083.1.1 ity of 3.412.2.7 [place] .3.795999 MD Song [facility] 2022-02-18 2022-02-18 Travel 1.2.840.1 1.2.730.417 4691 594999 Univers 00:00:00 00:00:00 07475.1.1 350.1.13.41 ity of 3.412.2.7 2.2.7.3.698 [place] .3.841115 084.8 MD Song [facility] 2022-02-18 2022-02-18 Orders Cr, 1.2.840.1 [id number] 9596 Univers 00:00:00 00:00:00 Only Joel Rosas 55912.1.1 ity of 3.412.2.7 [place] .3.245538 MD Song [facility] 2022-02-18 2022-02-18 Travel 1.2.840.1 1.2.851.169 4788 241069 Univers 00:00:00 00:00:00 47713.1.1 350.1.13.41 ity of 3.412.2.7 2.2.7.3.698 [place] .3.335261 084.8 MD Song [facility] 2022-02-17 2022-02-17 Clinical Shed, Ricardo E 1.2.840.1 [id number] 2 [id number] Univers 10:15:00 11:19:12 Support Samuel Burger 25702.1.1 ity of 3.412.2.7 [place] .3.311798 MD Song [facility] 2022-02-17 2022-02-17 Clinical Shed, Ricardo E 1.2.840.1 04632052 2 [id number] Univers 10:15:00 11:19:12 Support Samuel Burger 08412.1.1 ity of 3.412.2.7 [place] .3.403941 MD Song [facility] 2022-02-17 2022-02-17 Consult Carrillo, 1.2.840.1 [id number] 8341 Univers 09:00:00 10:38:38 Merajesh 76108.1.1 ity of 3.412.2.7 [place] .3.356202 MD Song [facility] 2022-02-17 2022-02-17 Consult Adibi, 1.2.840.1 [id number] 7988 Univers 09:00:00 10:38:38 Merajesh 85579.1.1 ity of 3.412.2.7 [place] .3.696919 MD Song [facility] 2022-02-17 2022-02-17 Travel 1.2.840.1 1.2.099.992 7438 498963 Univers 00:00:00 00:00:00 35617.1.1 350.1.13.41 ity of 3.412.2.7 2.2.7.3.698 [place] .3.269172 084.8 MD Song [facility] 2022-02-17 2022-02-17 Travel 1.2.840.1 1.2.448.039 2238 513664 Univers 00:00:00 00:00:00 00109.1.1 350.1.13.41 ity of 3.412.2.7 2.2.7.3.698 [place] .3.132393 084.Randi Song [facility] 2022-02-11 2022-02-11 Jordan Mosher, 1.2.840.1 033338212 146808 2822 Univers 00:00:00 00:00:00 Only Nicolette 77203.1.1 it y of 3.412.2.7 [place] .3.208190 MD Song [facility] 2022-02-11 2022-02-11 Jordan Mosher, 1.2.840.1 [id number] 040301 3360 Univers 00:00:00 00:00:00 Only Nicolette 99910.1.1 it y of 3.412.2.7 [place] .3.358043 MD Song [facility] 2022-02-04 2022-02-04 [facility], 1.2.840.1 [id number] 737 [id number] Univers 07:55:41 23:59:00 Moises Cisse 13050.1.1 i ty of 3.412.2.7 [place] .3.755173 MD Song [facility] 2022-02-04 2022-02-04 [facility], 1.2.840.1 [id number] 152 [id number] Univers 07:55:41 23:59:00 Encounter Kaitlin Iqbal.1.1 i ty of 3.412.2.7 [place] .3Liliam366083 MD Song [facility] 2022-02-04 2022-02-04 Ancillary Papadopoulo 1.2.840.1 [id number] [id number] Univers 20:15:00 20:20:00 Procedure sLeonard 97574.1.1 it y of 3.412.2.7 [place] .3Liliam526307 MD Ricketts8 [facility] 2022-02-04 2022-02-04 Ancillary Papadopoulo 1.2.840.1 746114418 [id number] Univers 20:15:00 20:20:00 Procedure sLeonard 79842.1.1 it y of 3.412.2.7 [place] .3Liliam446795 MD Song [facility] 2022-02-04 2022-02-04 Ancillary Papadopoulo 1.2.840.1 363820426 [id number] Univers 20:10:00 20:15:00 Procedure sLeonadr 46725.1.1 it y of 3.412.2.7 [place] .3Liliam130622 MD Ricketts8 [facility] 2022-02-04 2022-02-04 Ancillary Papadopoulo 1.2.840.1 097596241 [id number] Univers 20:10:00 20:15:00 Procedure sLeonard 15271.1.1 it y of 3.412.2.7 [place] .3Liliam976176 MD Ricketts8 [facility] 2022-02-04 2022-02-04 Ancillary Papadopoulo 1.2.840.1 [id number] [id number] Univers 20:05:00 20:10:00 Procedure sLeonard50.1.1 it y of 3.412.2.7 [place] .3Liliam184975 MD Ricketts8 [facility] 2022-02-04 2022-02-04 Ancillary Papadopoulo 1.2.840.1 820776553 [id number] Univers 20:05:00 20:10:00 Procedure sLeonard 17869.1.1 it y of 3.412.2.7 [place] .3Liliam317194 MD Ricketts8 [facility] 2022-02-04 2022-02-04 Ancillary Papadopoulo 1.2.840.1 [id number] [id number] Univers 20:00:00 20:05:00 Procedure s, Leonard 94799.1.1 it y of 3.412.2.7 [place] .3Liliam114000 MD Ricketts8 [facility] 2022-02-04 2022-02-04 Ancillary Papadopoulo 1.2.840.1 [id number] Univers 20:00:00 20:05:00 Procedure sLeonard 62353.1.1 it y of 3.412.2.7 [place] .3Liliam812109 MD Song [facility] 2022-02-04 2022-02-04 Infusion Fossella, 1.2.840.1 [id number] 728 [id number] Univers 14:45:00 16:36:36 Kaitlin V. 01659.1.1 ity of 3.412.2.7 [place] .3.057757 MD Ricketts8 [facility] 2022-02-04 2022-02-04 Infusion Fossella, 1.2.840.1 813066095 527 [id number] Univers 14:45:00 16:36:36 Kaitlin V. 79287.1.1 ity of 3.412.2.7 [place] .3.293651 MD Ricketts8 [facility] 2022-02-04 2022-02-04 Office Fossella, 1.2.840.1 [id number] 1091 [id number] Univers 09:30:00 09:43:45 Visit Kaitlin V. 31370.1.1 ity of 3.412.2.7 [place] .3Liliam273635 MD Ricketts8 [facility] 2022-02-04 2022-02-04 Office Fossella, 1.2.840.1 [id number] 1091 677199 Univers 09:30:00 09:43:45 Visit Kaitlin Cisse 80883.1.1 ity of 3.412.2.7 [place] .3.133295 MD Song [facility] 2022-02-04 2022-02-04 Jordan Mosher, 1.2.840.1 [id number] 9129 Univers 00:00:00 00:00:00 Only Nicolette 69654.1.1 it y of 3.412.2.7 [place] .3.061787 MD Song [facility] 2022-02-04 2022-02-04 Travel 1.2.840.1 1.2.653.111 0661 543986 Univers 00:00:00 00:00:00 06895.1.1 350.1.13.41 ity of 3.412.2.7 2.[place]7.3.698 [place] .3.710802 084.8 MD Song [facility] 2022-02-04 2022-02-04 Jordan Mosher, 1.2.840.1 [id number] [employer] 00:00:00 00:00:00 Only Nicolette 50724.1.1 it y of 3.412.2.7 [place] .3.564423 MD Song [facility] 2022-02-04 2022-02-04 Travel 1.2.840.1 1.2.018.550 8130 191404 [facility] 00:00:00 00:00:00 27188.1.1 350.1.13.41 ity of 3.412.2.7 2.[place].7.3.698 [place] .3.772420 084Liliam8 MD Song [facility] 2022-01-07 2022-01-07 Infusion Veeella, 1.2.840.1 [id number] Univers 10:45:00 14:46:28 Kaitlin Cisse 08017.1.1 ity of 3.412.2.7 [place] .3.574194 MD Song [facility] 2022-01-07 2022-01-07 Infusion EL Veeella, 1.2.840.1 [id number] [id number] Univers 10:45:00 14:46:28 Kaitlin Cisse 33730.1.1 ity of 3.412.2.7 [place] .3.405553 MD Song [facility] 2022-01-07 2022-01-07 Travel 1.2.840.1 1.2.480.647 2809 100219 [facility] 00:00:00 00:00:00 03726.1.1 350.1.13.41 ity of 3.412.2.7 2.[place].7.3.698 [place] .3.062259 084.8 MD Song [facility] 2022-01-07 2022-01-07 Travel 1.2.840.1 1.2.608.432 7694 [id number] [facility] 00:00:00 00:00:00 69429.1.1 350.1.13.41 ity of 3.412.2.7 2.[place].7.3.698 [place] .3.644833 084.Randi Song [facility] 2022-01-01 2022-01-01 [facility], 1.2.840.1 [id number] Univers 09:30:00 23:59:00 Encounter Nicolette 90571.1.1 ity of 3.412.2.7 [place] .3.403431 MD Song [facility] 2022-01-01 2022-01-01 [facility], 1.2.840.1 [id number] Univers 09:30:00 23:59:00 Encounter Nicolette 10927.1.1 ity of 3.412.2.7 [place] .3.222005 MD Song [facility] 2022-01-01 2022-01-01 [facility], 1.2.840.1 [id number] 1090 [id number] Univers 10:30:00 11:59:16 Visit Kaitlin Cisse 58862.1.1 ity of 3.412.2.7 [place] .3.661535 MD Song [facility] 2022-01-01 2022-01-01 Office JAMES Thompson, 1.2.840.1 [id number] [id number] [facility] 10:30:00 11:59:16 Visit Kaitlin TannerLiliam 31639.1.1 ity of 3.412.2.7 [place] .3.450948 MD Song [facility] 2022-01-01 2022-01-01 Jordan Mosher, 1.2.840.1 [id number] 7809 [employer] 00:00:00 00:00:00 Only Nicolette 18236.1.1 it y of 3.412.2.7 [place] .3.431270 MD Song [facility] 2022-01-01 2022-01-01 Jordan Maxwell 1.2.840.1 [id number] 1653 [facility] 00:00:00 00:00:00 Only Vijaya 80798.1.1 ity of 3.412.2.7 [place] .3.334302 MD Song [facility] 2022-01-01 2022-01-01 Travel 1.2.840.1 1.2.849.218 5012 [id number] [facility] 00:00:00 00:00:00 62608.1.1 350.1.13.41 ity of 3.412.2.7 2.[place]7.3.698 [place] .3.989513 084.8 MD Song [facility] 2022-01-01 2022-01-01 Jordan Mosher 1.2.840.1 [id number] 1048 [facility] 00:00:00 00:00:00 Only Nicolette 43257.1.1 it y of 3.412.2.7 [place] .3.519376 MD Song [facility] 2022-01-01 2022-01-01 Jordan Maxwell 1.2.840.1 [id number] 6983 [facility] 00:00:00 00:00:00 Only Vijaya 92810.1.1 ity of 3.412.2.7 [place] .3.938909 MD Song [facility] 2022-01-01 2022-01-01 Travel 1.2.840.1 1.2.598.247 6735 [id number] [facility] 00:00:00 00:00:00 95916.1.1 350.1.13.41 ity of 3.412.2.7 2.[place].7.3.698 [place] .3.077506 084.8 MD Ricketts8 [facility] 2021-12-30 2021-12-30 Nurse Luis, 1.2.840.1 [id number] 8132 [facility] 00:00:00 00:00:00 Triage Sally Anderson 79247.1.1 ity of 3.412.2.7 [place] .3.244177 MD Ricketts8 [facility] 2021-12-30 2021-12-30 Telephone Luis, 1.2.840.1 [id number] 1090 [id number] [facility] 00:00:00 00:00:00 Sally G 94584.1.1 ity of 3.412.2.7 [place] .3.025703 MD Ricketts8 [facility] 2021-12-30 2021-12-30 Nurse Luis, 1.2.840.1 [id number] 3460 [facility] 00:00:00 00:00:00 Triage Sally Anderson 46617.1.1 ity of 3.412.2.7 [place] .3.314769 MD Ricketts8 [facility] 2021-12-30 2021-12-30 Telephone Smith, 1.2.840.1 [id number] 1090 [id number] [facility] 00:00:00 00:00:00 Sally G 47883.1.1 ity of 3.412.2.7 [place] .3.832357 MD Ricketts8 [facility] 2021-12-24 2021-12-24 Jordan Mosher, 1.2.840.1 [id number] [facility] 00:00:00 00:00:00 Only Nicolette 00474.1.1 it y of 3.412.2.7 [place] .3.269494 MD Ricketts8 [facility] 2021-12-24 2021-12-24 [facility], 1.2.840.1 [id number] 7479 Univers 00:00:00 00:00:00 Only Nicolette 08984.1.1 it y of 3.412.2.7 [place] .3Liliam644167 MD Ricketts8 [facility] 2021-12-23 2021-12-23 [facility] [facility], 1.2.840.1 [id number] [id number] Univers 13:12:34 23:59:00 Encounter Nicolette 00670.1.1 ity of 3.412.2.7 [place] .3Liliam754849 MD Ricketts8 [facility] 2021-12-23 2021-12-23 [facility] Vidhi, 1.2.840.1 [id number] Univers 13:12:34 23:59:00 Encounter Nicolette 04154.1.1 ity of 3.412.2.7 [place] .3Liliam921349 MD Ricketts8 [facility] 2021-12-23 2021-12-23 Office Darwin, 1.2.840.1 [id number] 04698 85547 Univers 13:30:00 15:11:31 Visit Jeffry 78390.1.1 ity of 3.412.2.7 [place] .3Liliam948479 MD Ricketts8 [facility] 2021-12-23 2021-12-23 Office JAMES Granados, 1.2.840.1 [id number] [id number] Univers 13:30:00 15:11:31 Visit Jeffry 21828.1.1 ity of 3.412.2.7 [place] .3Liliam208472 MD Ricketts8 [facility] 2021-12-23 2021-12-23 [facility], 1.2.840.1 [id number] 10 [id number] Univers 12:54:02 13:11:00 Encounter Lauren 05482.1.1 it y of 3.412.2.7 [place] .3Liliam069342 MD Ricketts8 [facility] 2021-12-23 2021-12-23 [facility], 1.2.840.1 [id number] 10 [id number] Univers 12:54:02 13:11:00 Encounter Lauren 51168.1.1 it y of 3.412.2.7 [place] .3.321726 MD Song [facility] 2021-12-23 2021-12-23 Ancillary Pricilla, 1.2.840.1 [id number] 1 [id number] Univers 12:30:00 12:45:00 Procedure Lauren 74446.1.1 it y of 3.412.2.7 [place] .3.665346 MD Song [facility] 2021-12-23 2021-12-23 Ancillary EL Pricilla, 1.2.840.1 [id number] 1 [id number] Univers 12:30:00 12:45:00 Procedure Lauren 14756.1.1 it y of 3.412.2.7 [place] .3.670730 MD Song [facility] 2021-12-23 2021-12-23 Travel 1.2.840.1 1.2.271.785 6702 [id number] Univers 00:00:00 00:00:00 70993.1.1 350.1.13.41 ity of 3.412.2.7 [place]7.3.698 [place]3.585[place] 084.8 MD Song [facility] 2021-12-23 2021-12-23 Travel 1.2.840.1 1.2.955.326 2605 775989 Univers 00:00:00 00:00:00 02450.1.1 350.1.13.41 ity of 3.412.2.7 2.2.7.3.698 [place] .3.654257 084Liliam8 MD Song [facility] 2021-12-11 2021-12-11 Telephone Vidhi, 1.2.840.1 [id number] 1090 [id number] Univers 00:00:00 00:00:00 Nicolette 32161.1.1 it y of 3.412.2.7 [place] .3.443965 MD Song [facility] 2021-12-11 2021-12-11 Jordan Pleitez, 1.2.840.1 [id number] Univers 00:00:00 00:00:00 Only Lauren 73627.1.1 ity of 3.412.2.7 [place] .3.723693 MD Ricketts8 [facility] 2021-12-11 2021-12-11 Tatyana Mosher 1.2.840.1 [id number] 1090 [id number] Univers 00:00:00 00:00:00 Nicolette 20512.1.1 it y of 3.412.2.7 [place] .3.080207 MD Ricketts8 [facility] 2021-12-11 2021-12-11 Jordan Pleitez, 1.2.840.1 [id number] 868 [id number] Univers 00:00:00 00:00:00 Only Lauren 35155.1.1 ity of 3.412.2.7 [place] .3.860459 MD Ricketts8 [facility] 2021-12-10 2021-12-10 Office Deidra, 1.2.840.1 [id number] 1089 [id number] Univers 08:00:00 09:20:33 Visit Kaitlin Cisse 46651.1.1 ity of 3.412.2.7 [place] .3.075101 MD Ricketts8 [facility] 2021-12-10 2021-12-10 Office JAMES Thompson, 1.2.840.1 [id number] 1089 [id number] Univers 08:00:00 09:20:33 Visit aKitlin Cisse 66816.1.1 ity of 3.412.2.7 [place] .3.929545 MD Ricketts8 [facility] 2021-12-10 2021-12-10 Rosita Braswell 1.2.840.1 [id number] 10 [id number] Univers 00:00:00 00:00:00 Only 47025.1.1 ity of 3.412.2.7 [place] .3.361673 MD Ricketts8 [facility] 2021-12-10 2021-12-10 Travel 1.2.840.1 1.2.983.867 7746 [id number] Univers 00:00:00 00:00:00 05793.1.1 350.1.13.41 ity of 3.412.2.7 2.2[place]7.3.698 [place]3.1133[place] 084.8 MD Song [facility] 2021-12-10 2021-12-10 Orders Rosita Milian 1.2.840.1 [id number] 10 [id number] Univers 00:00:00 00:00:00 Only 10504.1.1 ity of 3.412.2.7 [place] .3.706759 MD Song [facility] 2021-12-10 2021-12-10 Travel 1.2.840.1 1.2.759.598 3908 [id number] Univers 00:00:00 00:00:00 71518.1.1 350.1.13.41 ity of 3.412.2.7 2.2.7.3.698 [place]3.921197 084.8 MD Song [facility] 2021-12-09 2021-12-09 Rosalva Thompson 1.2.840.1 [id number] 10 [id number] Univers 10:00:00 12:30:00 Procedure Kaitlin V. 15946.1.1 i ty of 3.412.2.7 [place] .3.848742 MD Song [facility] 2021-12-09 2021-12-09 Ancillary JAMES Thompson 1.2.840.1 [id number] 10 [id number] Univers 10:00:00 12:30:00 Procedure Kaitlin V. 12868.1.1 i ty of 3.412.2.7 [place] .3.480799 MD Song [facility] 2021-12-09 2021-12-09 Outpatient JAMES THOMPSON [facility] 06558 [id number] 08:51:26 08:51:51 KAITLIN silver 2021-12-09 2021-12-09 Travel 1.2.840.1 1.2.420.814 5182 773039 Univers 00:00:00 00:00:00 27924.1.1 350.1.13.41 ity of 3.412.2.7 2.2.7.3.698 [place] .3.860274 084.8 MD Song [facility] 2021-12-09 2021-12-09 Travel 1.2.840.1 1.2.231.770 4468 854342 Univers 00:00:00 00:00:00 11216.1.1 350.1.13.41 ity of 3.412.2.7 2.2.7.3.698 [place] .3.694841 084.8 MD Song [facility] 2021-11-19 2021-11-19 Orders Thomas, 1.2.840.1 [id number] 75976 Univers 00:00:00 00:00:00 Only Liudmila Oakes 75962.1.1 ity of 3.412.2.7 [place] .3.256150 MD Song [facility] 2021-11-19 2021-11-19 Orders Thomas, 1.2.840.1 [id number] Univers 00:00:00 00:00:00 Only Liudmila Oakes 51809.1.1 ity of 3.412.2.7 [place] .3.735075 MD Song [facility] 2021-11-14 2021-11-14 Infusion Vidhi, 1.2.840.1 [id number] 94191 Univers 13:15:00 16:51:50 Nicolette 96613.1.1 it y of 3.412.2.7 [place] .3.838169 MD Ricketts8 [facility] 2021-11-14 2021-11-14 Infusion EL Vidhi, 1.2.840.1 [id number] 68916 Univers 13:15:00 16:51:50 Nicolette 78080.1.1 it y of 3.412.2.7 [place] .3.358407 MD Song [facility] 2021-11-14 2021-11-14 Travel 1.2.840.1 1.2.069.186 2190 365294 Univers 00:00:00 00:00:00 20610.1.1 350.1.13.41 ity of 3.412.2.7 2.2.7.3.698 [place] .3.653775 084.8 MD Song [facility] 2021-11-14 2021-11-14 Orders Poonam 1.2.840.1 [id number] 7716 Univers 00:00:00 00:00:00 Only Shayy 42222.1.1 ity of 3.412.2.7 [place] .3.467166 MD Song [facility] 2021-11-14 2021-11-14 Orders Vidhi 1.2.840.1 [id number] 2635 Univers 00:00:00 00:00:00 Only Nicolette 65759.1.1 it y of 3.412.2.7 [place] .3.573699 MD Song [facility] 2021-11-14 2021-11-14 Travel 1.2.840.1 1.2.879.975 6203 592070 Univers 00:00:00 00:00:00 03467.1.1 350.1.13.41 ity of 3.412.2.7 2.2.7.3.698 [place] .3.801070 084.8 MD Song [facility] 2021-11-14 2021-11-14 Jordan Levin 1.2.840.1 [id number] 7254 Univers 00:00:00 00:00:00 Only Shayy 62180.1.1 ity of 3.412.2.7 [place] .3.405133 MD Song [facility] 2021-11-14 2021-11-14 Orders Vidhi, 1.2.840.1 [id number] 6565 Univers 00:00:00 00:00:00 Only Nicolette 23851.1.1 it y of 3.412.2.7 [place] .3.569117 MD Song [facility] 2021-11-13 2021-11-13 Telemedici Deidra, 1.2.840.1 [id number] 1 [id number] Univers 15:30:00 16:00:00 ne Kaitlin V. 55924.1.1 ity of 3.412.2.7 [place] .3.766837 MD Ricketts8 [facility] 2021-11-13 2021-11-13 Telemedici EL Deidra, 1.2.840.1 [id number] 1 [id number] Univers 15:30:00 16:00:00 ne Kaitlin V. 09367.1.1 ity of 3.412.2.7 [place] .3.309884 MD Ricketts8 [facility] 2021-11-13 2021-11-13 Outpatient JAMES MOSHER [facility] [id number] 039 08:45:46 08:47:28 NICOLETTE Coy [facility] 2021-11-13 2021-11-13 Jordan Maxwell, 1.2.840.1 [id number] 4119 Univers 00:00:00 00:00:00 Only Vijaya 40080.1.1 ity of 3.412.2.7 [place] .3.386874 MD Ricketts8 [facility] 2021-11-13 2021-11-13 Jordan Mosher, 1.2.840.1 [id number] 6907 Univers 00:00:00 00:00:00 Only Nicolette 38482.1.1 it y of 3.412.2.7 [place] .3.771968 MD Ricketts8 [facility] 2021-11-13 2021-11-13 Travel 1.2.840.1 1.2.957.675 1254 571768 Univers 00:00:00 00:00:00 62012.1.1 350.1.13.41 ity of 3.412.2.7 2.2.7.3.698 [place] .3.566938 084.8 MD Ricketts8 [facility] 2021-11-13 2021-11-13 Jordan Maxwell 1.2.840.1 [id number] 6180 Univers 00:00:00 00:00:00 Only Vijaya 12914.1.1 ity of 3.412.2.7 [place] .3.234024 MD Ricketts8 [facility] 2021-11-13 2021-11-13 Jordan Mosher, 1.2.840.1 [id number] 9103 Univers 00:00:00 00:00:00 Only Nicolette 75624.1.1 it y of 3.412.2.7 [place] .3.155234 MD Ricketts8 [facility] 2021-11-13 2021-11-13 Travel 1.2.840.1 1.2.336.233 8949 652166 Univers 00:00:00 00:00:00 82605.1.1 350.1.13.41 ity of 3.412.2.7 2.2.7.3.698 [place] .3.057121 084.8 MD Song [facility] 2021-10-17 2021-10-17 Infusion Fossella, 1.2.840.1 [id number] 244 [id number] Univers 10:45:00 11:45:00 Kaitlin V. 16912.1.1 ity of 3.412.2.7 [place] .3.575034 MD Song [facility] 2021-10-17 2021-10-17 Infusion EL Fossella, 1.2.840.1 [id number] Univers 10:45:00 11:45:00 Kaitlin V. 62300.1.1 ity of 3.412.2.7 [place] .3.102122 MD Song [facility] 2021-10-17 2021-10-17 Telemedici Veeella, Kaitlin V. 1.2.840.1 10 [id number] Univers 10:00:00 10:30:00 Nicolette Omalley 47176.1.1 ity of 3.412.2.7 [place] .3.007845 MD Song [facility] 2021-10-17 2021-10-17 Telemedici EL Fossella, Kaitlin V. 1.2.840.1 10 [id number] Univers 10:00:00 10:30:00 Nicolette Omalley 05356.1.1 ity of 3.412.2.7 [place] .3.515322 MD Song [facility] 2021-10-17 2021-10-17 Travel 1.2.840.1 1.2.560.783 0632 552287 Univers 00:00:00 00:00:00 55206.1.1 350.1.13.41 ity of 3.412.2.7 2.2.7.3.698 [place] .3.184568 084.8 MD Song [facility] 2021-10-17 2021-10-17 Jordan Mosher 1.2.840.1 [id number] 4760 Univers 00:00:00 00:00:00 Only Nicolette 43346.1.1 it y of 3.412.2.7 [place] .3.274924 MD Song [facility] 2021-10-17 2021-10-17 Travel 1.2.840.1 1.2.624.700 0190 624150 Univers 00:00:00 00:00:00 63701.1.1 350.1.13.41 ity of 3.412.2.7 2.2.7.3.698 [place] .3.937379 084Nohemi Song [facility] 2021-10-17 2021-10-17 Jordan Mosher 1.2.840.1 [id number] [id number] 9176 Univers 00:00:00 00:00:00 Only Nicolette 01478.1.1 it y of 3.412.2.7 [place] .3.549013 MD Song [facility] 2021-10-16 2021-10-16 Jordan Thompson 1.2.840.1 [id number] 1088 [id number] Univers 00:00:00 00:00:00 Only Kaitlin Cisse 46412.1.1 ity of 3.412.2.7 [place] .3.814576 MD .8 [facility] 2021-10-16 2021-10-16 [facility], 1.2.840.1 [id number] 1088 [id number] Univers 00:00:00 00:00:00 Only Kaitlin V. 68924.1.1 ity of 3.412.2.7 [place] .3.694025 MD Ricketts8 [facility] 2021-10-15 2021-10-15 [facility], 1.2.840.1 [id number] 874 [id number] Univers 10:25:49 23:59:00 Encounter Kaitlin V. 56053.1.1 i ty of 3.412.2.7 [place] .3.955602 .8 [facility] 2021-10-15 2021-10-15 [facility], 1.2.840.1 [id number] 082 [id number] Univers 10:25:49 23:59:00 Encounter Kaitlin V. 94805.1.1 i ty of 3.412.2.7 [place] .3.093807 .8 [facility] 2021-10-15 2021-10-15 [facility], 1.2.840.1 [id number] 97492 Univers 08:51:49 10:24:00 Encounter Nicolette 64204.1.1 ity of 3.412.2.7 [place] .3.967032 MD Song [facility] 2021-10-15 2021-10-15 [facility], 1.2.840.1 [id number] 17343 61707 Univers 08:51:49 10:24:00 Encounter Nicolette 19988.1.1 ity of 3.412.2.7 [place] .3.417653 MD Song [facility] 2021-10-15 2021-10-15 Travel 1.2.840.1 1.2.654.560 8758 833611 Univers 00:00:00 00:00:00 76382.1.1 350.1.13.41 ity of 3.412.2.7 2.2.7.3.698 [place] .3.303547 084.8 MD Song [facility] 2021-10-15 2021-10-15 Travel 1.2.840.1 1.2.982.686 6784 766960 Univers 00:00:00 00:00:00 21199.1.1 350.1.13.41 ity of 3.412.2.7 2.2.7.3.698 [place] .3.373861 084.8 MD Song [facility] 2021-09-30 2021-09-30 Office Emil, 1.2.840.1 [id number] 4027 Univers 08:00:00 11:39:56 Visit Claudia 76976.1.1 ity of 3.412.2.7 [place] .3.837631 MD Song [facility] 2021-09-30 2021-09-30 Office JAMES Rogers, 1.2.840.1 [id number] 9523 Univers 08:00:00 11:39:56 Visit Claudia 25494.1.1 ity of 3.412.2.7 [place] .3.196279 MD Song [facility] 2021-09-30 2021-09-30 Travel 1.2.840.1 1.2.159.699 2770 799258 Univers 00:00:00 00:00:00 86668.1.1 350.1.13.41 ity of 3.412.2.7 2.2.7.3.698 [place] .3.232333 084.8 MD Song [facility] 2021-09-30 2021-09-30 Travel 1.2.840.1 1.2.016.212 4914 010201 Univers 00:00:00 00:00:00 92250.1.1 350.1.13.41 ity of 3.412.2.7 2.2.7.3.698 [place] .3.878042 084.8 MD Song [facility] 2021-09-24 2021-09-24 Telephone Obie-Shai 1.2.840.1 [id number] Univers 00:00:00 00:00:00 ero, 76989.1.1 ity of Radha 3.412.2.7 [place] .3.230422 MD Ricketts8 [facility] 2021-09-24 2021-09-24 Telephone Ragland-Rom 1.2.840.1 [id number] Univers 00:00:00 00:00:00 emiliano, 18765.1.1 ity of Radha 3.412.2.7 [place] .3.027848 MD Ricketts8 [facility] 2021-09-23 2021-09-23 Jordan Mosher, 1.2.840.1 [id number] 0769 Univers 00:00:00 00:00:00 Only Nicolette 85108.1.1 it y of 3.412.2.7 [place] .3.145868 MD Ricketts8 [facility] 2021-09-23 2021-09-23 Jordan Mosher, 1.2.840.1 [id number] 3803 Univers 00:00:00 00:00:00 Only Nicolette 67090.1.1 it y of 3.412.2.7 [place] .3.940037 MD Ricketts8 [facility] 2021-09-19 2021-09-19 Infusion Fossella, 1.2.840.1 [id number] Univers 09:00:00 10:48:39 Kaitlin V. 22493.1.1 ity of 3.412.2.7 [place] .3.871655 MD Song [facility] 2021-09-19 2021-09-19 Infusion EL Fossella, 1.2.840.1 [id number] 769 [id number] Univers 09:00:00 10:48:39 Kaitlin V. 59944.1.1 ity of 3.412.2.7 [place] .3Liliam908779 MD Song [facility] 2021-09-19 2021-09-19 Travel 1.2.840.1 1.2.450.697 1301 147646 Univers 00:00:00 00:00:00 84309.1.1 350.1.13.41 ity of 3.412.2.7 2.2.7.3.698 [place] .3.840063 084.8 MD Song [facility] 2021-09-19 2021-09-19 Travel 1.2.840.1 1.2.122.302 2408 453139 [facility] 00:00:00 00:00:00 20167.1.1 350.1.13.41 ity of 3.412.2.7 2.2.7.3.698 [place] .3.915696 084.8 MD Song [facility] 2021-09-18 2021-09-18 [facility] 1.2.840.1 [id number] 099 [id number] Univers 10:06:02 23:59:00 Encounter Kaitlin VLiliam 17833.1.1 i ty of 3.412.2.7 [place] .3.973213 MD Ricketts8 [facility] 2021-09-18 2021-09-18 [facility], 1.2.840.1 [id number] 884 [id number] Univers 10:06:02 23:59:00 Encounter Kaitlin V. 48743.1.1 i ty of 3.412.2.7 [place] .3.694114 MD Song [facility] 2021-09-18 2021-09-18 Office [facility], 1.2.840.1 [id number] 1086 [id number] Univers 11:30:00 13:09:33 Visit Kaitlin V. 39854.1.1 ity of 3.412.2.7 [place] .3.823550 MD Ricketts8 [facility] 2021-09-18 2021-09-18 Office [facility], 1.2.840.1 [id number] 1086 [id number] Univers 11:30:00 13:09:33 Visit Kaitlin V. 49220.1.1 ity of 3.412.2.7 [place] .3.955141 MD Snog [facility] 2021-09-18 2021-09-18 Travel 1.2.840.1 1.2.261.490 9900 109036 Univers 00:00:00 00:00:00 59381.1.1 350.1.13.41 ity of 3.412.2.7 2.2.7.3.698 [place] .3.828911 084.8 MD Song [facility] 2021-09-18 2021-09-18 Travel 1.2.840.1 1.2.754.529 4074 132669 Univers 00:00:00 00:00:00 29413.1.1 350.1.13.41 ity of 3.412.2.7 2.2.7.3.698 [place] .3.123571 084.8 MD Song [facility] 2021-09-01 2021-09-01 Jordan Rogers, 1.2.840.1 [id number] 9640 Univers 00:00:00 00:00:00 Only Claudia 81711.1.1 ity of 3.412.2.7 [place] .3.092480 MD Song [facility] 2021-09-01 2021-09-01 Jordan Rogers 1.2.840.1 [id number] [id number] 2651 Univers 00:00:00 00:00:00 Only Claudia 64901.1.1 ity of 3.412.2.7 [place] .3.205034 MD Song [facility] 2021-08-26 2021-08-26 Telephone Elvie Borja 1.2.840.1 [id number] Univers 00:00:00 00:00:00 M 83942.1.1 ity of 3.412.2.7 [place] .3.555924 MD Song [facility] 2021-08-26 2021-08-26 Telephone Elvie Borja 1.2.840.1 [id number] Univers 00:00:00 00:00:00 M 33223.1.1 ity of 3.412.2.7 [place] .3.540829 MD Song [facility] 2021-08-22 2021-08-22 Infusion 1.2.840.1 [id number] 77277 84533 Univers 14:15:00 16:06:38 97456.1.1 ity of 3.412.2.7 [place] .3.028470 MD Song [facility] 2021-08-22 2021-08-22 Infusion EL 1.2.840.1 [id number] 95861 84393 Univers 14:15:00 16:06:38 35045.1.1 ity of 3.412.2.7 [place] .3.818488 MD Song [facility] 2021-08-22 2021-08-22 Travel 1.2.840.1 1.2.679.294 4809 909633 Univers 00:00:00 00:00:00 38781.1.1 350.1.13.41 ity of 3.412.2.7 2.2.7.3.698 [place] .3.458047 084.8 MD Song [facility] 2021-08-22 2021-08-22 Travel 1.2.840.1 1.2.767.029 7728 143869 Univers 00:00:00 00:00:00 28204.1.1 350.1.13.41 ity of 3.412.2.7 2.2.7.3.698 [place] .3.001537 084.8 MD Song [facility] 2021-08-21 2021-08-21 Office Deidra, 1.2.840.1 [id number] 1085 [id number] Univers 11:30:00 12:12:50 Visit Kaitlin V. 39249.1.1 ity of 3.412.2.7 [place] .3.548204 MD Song [facility] 2021-08-21 2021-08-21 Office EL Deidra, 1.2.840.1 [id number] 1085 [id number] Univers 11:30:00 12:12:50 Visit Kaitlin V. 94955.1.1 ity of 3.412.2.7 [place] .3.634395 MD Song [facility] 2021-08-21 2021-08-21 Office Leonard Giraldo 1.2.840.1 26744 [id number] [id number] Univers 10:15:00 10:39:56 Visit Connie Bertrandhan 13203.1.1 ity of 3.412.2.7 [place] .3.803855 MD Song [facility] 2021-08-21 2021-08-21 Office EL Leonard Giraldo 1.2.840.1 95591 4231 [id number] Univers 10:15:00 10:39:56 Visit Nahed Bertrand 10947.1.1 ity of 3.412.2.7 [place] .3.213274 MD Song [facility] 2021-08-21 2021-08-21 Orders Dillard, 1.2.840.1 [id number] 8566 Univers 00:00:00 00:00:00 Only Alejandro 17013.1.1 ity of 3.412.2.7 [place] .3.348206 MD Song [facility] 2021-08-21 2021-08-21 Orders Vidhi, 1.2.840.1 [id number] 9227 Univers 00:00:00 00:00:00 Only Nicolette 93827.1.1 it y of 3.412.2.7 [place] .3.489660 MD Song [facility] 2021-08-21 2021-08-21 Orders [place], 1.2.840.1 [id number] 0133 Univers 00:00:00 00:00:00 Only Annalise 24291.1.1 ity of [place] 3.412.2.7 [place] .3.907207 MD Song [facility] 2021-08-21 2021-08-21 Travel 1.2.840.1 1.2.721.294 6239 677217 Univers 00:00:00 00:00:00 79414.1.1 350.1.13.41 ity of 3.412.2.7 2.2.7.3.698 [place] .3.139846 084.Randi Song [facility] 2021-08-21 2021-08-21 Orders Dillard, 1.2.840.1 [id number] 623012 7642 Univers 00:00:00 00:00:00 Only Alejandro 23296.1.1 ity of 3.412.2.7 [place] .3.949961 MD Song [facility] 2021-08-21 2021-08-21 Orders Vidhi, 1.2.840.1 [id number] 3686 Univers 00:00:00 00:00:00 Only Nicolette 22258.1.1 it y of 3.412.2.7 [place] .3.666567 MD Song [facility] 2021-08-21 2021-08-21 Orders [place], 1.2.840.1 [id number] 8973 Univers 00:00:00 00:00:00 Only Annalise 19513.1.1 ity of [place] 3.412.2.7 [place] .3.703830 MD Song [facility] 2021-08-21 2021-08-21 Travel 1.2.840.1 1.2.283.534 3030 082441 Univers 00:00:00 00:00:00 23227.1.1 350.1.13.41 ity of 3.412.2.7 2.2.7.3.698 [place] .3.229539 084.8 MD Song [facility] 2021-08-20 2021-08-20 Ancillary 1.2.840.1 [id number] 1085 [id number] Univers 08:55:00 10:20:00 Procedure 80339.1.1 it y of 3.412.2.7 [place] .3.437400 MD Song [facility] 2021-08-20 2021-08-20 Ancillary EL 1.2.840.1 [id number] 1085 870247 Univers 08:55:00 10:20:00 Procedure 62240.1.1 it y of 3.412.2.7 [place] .3.884965 MD Song [facility] 2021-08-20 2021-08-20 Outpatient [facility] [id number] MD 08:32:02 09:18:35 Mustapha [facility] 2021-08-20 2021-08-20 Travel 1.2.840.1 1.2.169.046 9111 [id number] [facility] 00:00:00 00:00:00 10396.1.1 350.1.13.41 ity of 3.412.2.[place].3.698 [place] .3.630344 084.8 MD Song [facility] 2021-08-20 2021-08-20 Travel 1.2.840.1 1.2.083.060 2946 [id number] [facility] 00:00:00 00:00:00 53609.1.1 350.1.13.41 ity of 3.412.2.7 2.[place]7.3.698 [place] .3.661983 084.8 MD Song [facility] 2021-07-25 2021-07-25 Infusion 1.2.840.1 [id number] 81095 [id number] Univers 11:15:00 15:10:56 52894.1.1 ity of 3.412.2.7 [place] .3.028529 MD Song [facility] 2021-07-25 2021-07-25 Infusion EL 1.2.840.1 [id number] 69121 74027 Univers 11:15:00 15:10:56 65989.1.1 ity of 3.412.2.7 [place] .3.550821 MD Song [facility] 2021-07-25 2021-07-25 Telephone Heffron, 1.2.840.1 [id number] [id number] Univers 00:00:00 00:00:00 Yun 28734.1.1 ity of 3.412.2.7 [place] .3.770387 MD Song [facility] 2021-07-25 2021-07-25 Travel 1.2.840.1 1.2.618.307 9381 [id number] [facility] 00:00:00 00:00:00 45102.1.1 350.1.13.41 ity of 3.412.2.7 2.[place]7.3.698 [place] .3.878850 084.8 MD Song [facility] 2021-07-25 2021-07-25 Telephone Cedric, 1.2.840.1 [id number] [id number] Univers 00:00:00 00:00:00 Yun 31431.1.1 ity of 3.412.2.7 [place] .3.424739 MD Song [facility] 2021-07-25 2021-07-25 Travel 1.2.840.1 1.2.000.060 1094 [id number] [facility] 00:00:00 00:00:00 74344.1.1 350.1.13.41 ity of 3.412.2.7 2.[place]7.3.698 [place] .3.310628 084.8 MD Song [facility] 2021-07-24 2021-07-24 [facility] 1.2.840.1 [id number] Univers 14:03:29 23:59:00 Encounter 51398.1.1 it y of 3.412.2.7 [place] .3.474468 MD Song [facility] 2021-07-24 2021-07-24 [facility] 1.2.840.1 [id number] 67870 18130 Univers 14:03:29 23:59:00 Encounter 37958.1.1 it y of 3.412.2.7 [place] .3.592554 MD Song [facility] 2021-07-24 2021-07-24 Office Deidra, 1.2.840.1 [id number] 1084 [id number] [facility] 15:30:00 15:30:00 Visit Kaitlin Cisse 73736.1.1 ity of 3.412.2.7 [place] .3.050610 MD Song [facility] 2021-07-24 2021-07-24 Office EL Deidra, 1.2.840.1 [id number] 1084 [id number] [facility] 15:30:00 15:30:00 Visit Kaitlin Cisse 49830.1.1 ity of 3.412.2.7 [place] .3.703349 MD Song [facility] 2021-07-24 2021-07-24 Jordan Maxwell 1.2.840.1 [id number] 1436 Univers 00:00:00 00:00:00 Only Vijaya 07789.1.1 ity of 3.412.2.7 [place] .3.213669 MD Song [facility] 2021-07-24 2021-07-24 Travel 1.2.840.1 1.2.390.602 2769 [id number] Univers 00:00:00 00:00:00 10632.1.1 350.1.13.41 ity of 3.412.2.7 2.[place]7.3.698 [place] .3.919224 084.8 MD Song [facility] 2021-07-24 2021-07-24 Jordan Maxwell 1.2.840.1 [id number] Univers 00:00:00 00:00:00 Only Bharaticoriemónica 53546.1.1 ity of 3.412.2.7 [place] .3.634628 MD Song [facility] 2021-07-24 2021-07-24 Travel 1.2.840.1 1.2.108.366 1186 [id number] [facility] 00:00:00 00:00:00 06332.1.1 350.1.13.41 ity of 3.412.2.7 2.2.7.3.698 [place] .3.805724 084.8 MD Song [facility] 2021-06-26 2021-06-26 Infusion Fossella, 1.2.840.1 [id number] Univers 14:15:00 15:15:00 Kaitlin V. 91887.1.1 ity of 3.412.2.7 [place] .3.692304 MD Song [facility] 2021-06-26 2021-06-26 Infusion EL Fossella, 1.2.840.1 [id number] Univers 14:15:00 15:15:00 Kaitlin V. 01621.1.1 ity of 3.412.2.7 [place] .3.621578 MD Song [facility] 2021-06-26 2021-06-26 Office Deidra, 1.2.840.1 [id number] 1082 [id number] Univers 11:30:00 14:02:23 Visit Kaitlin V. 06525.1.1 ity of 3.412.2.7 [place] .3.146728 MD Song [facility] 2021-06-26 2021-06-26 Office EL Deidra, 1.2.840.1 [id number] 1082 [id number] Univers 11:30:00 14:02:23 Visit Kaitlin V. 51950.1.1 ity of 3.412.2.7 [place] .3.329356 MD Song [facility] 2021-06-26 2021-06-26 Travel 1.2.840.1 1.2.356.879 0438 [id number] Univers 00:00:00 00:00:00 44567.1.1 350.1.13.41 ity of 3.412.2.7 2.2[place]7.3.698 [place] .3.107491 084.8 MD Song [facility] 2021-06-26 2021-06-26 Orders Deidra, 1.2.840.1 [id number] Univers 00:00:00 00:00:00 Only Kaitlin V. 79489.1.1 ity of 3.412.2.7 [place] .3.921334 MD Song [facility] 2021-06-26 2021-06-26 Travel 1.2.840.1 1.2.967.858 [id number] Univers 00:00:00 00:00:00 85867.1.1 350.1.13.41 ity of 3.412.2.7 [place].3.698 [place] .3.910584 084Liliam8 MD Song [facility] 2021-06-26 2021-06-26 Jordan Thompson, 1.2.840.1 [id number] Univers 00:00:00 00:00:00 Only Kaitlin TannerLiliam 65101.1.1 ity of 3.412.2.7 [place] .3.913310 MD Song [facility] 2021-06-25 2021-06-25 Ancillary Vidhi, 1.2.840.1 [id number] Univers 09:45:00 12:10:00 Procedure Nicolette 08435.1.1 ity of 3.412.2.7 [place] .3.761255 MD Song [facility] 2021-06-25 2021-06-25 Ancillary JAMES Mosher, 1.2.840.1 [id number] Univers 09:45:00 12:10:00 Procedure Nicolette 56113.1.1 ity of 3.412.2.7 [place] .3.188374 MD Song [facility] 2021-06-25 2021-06-25 Outpatient JAMES THOMPSON, [facility] [id number] 08:26:55 08:30:34 KAITLIN Mustaphagris sol 2021-06-25 2021-06-25 Travel 1.2.840.1 1.2.063.296 [id number] Univers 00:00:00 00:00:00 36401.1.1 350.1.13.41 ity of 3.412.2.7 2.[place]7.3.698 [place] .3.690410 084.8 MD Song [facility] 2021-06-25 2021-06-25 Travel 1.2.840.1 1.2.119.340 [id number] Univers 00:00:00 00:00:00 46862.1.1 350.1.13.41 ity of 3.412.2.7 [place].3.698 [place] .3.234156 084.8 MD Song [facility] 2021-05-29 2021-05-29 Infusion JAMES Thompson 1.2.840.1 [id number] Univers 11:15:00 14:24:28 Kaitlin Cisse 50251.1.1 ity of 3.412.2.7 [place] .3.665429 .8 [facility] 2021-05-29 2021-05-29 Travel 1.2.840.1 1.2.075.052 [id number] Univers 00:00:00 00:00:00 62877.1.1 350.1.13.41 ity of 3.412.2.7 2.[place].3.698 [place] .3.642143 084.8 .8 [facility] 2021-05-21 2021-05-21 Outpatient EL VEEELLA, MDA MDA [id number] 10:13:50 23:59:00 KAITLIN sol 2021-05-21 2021-05-21 Outpatient VIDHI, MDA MDA [id number] 10:44:24 13:03:33 NICOLETTE sol 2021-05-01 2021-05-01 Outpatient EL VEEELLA, MDA MDA [id number] 11:37:12 17:16:50 KAITLIN sol 2021-04-24 2021-04-24 Outpatient EL VEEELLA, MDA MDA [id number] 10:40:41 11:51:15 KAITLIN sol 2021-04-23 2021-04-23 Outpatient VIDHI, MDA MDA [id number] 09:42:56 09:42:56 NICOLETTE sol 2021-04-23 2021-04-23 Outpatient EL FOSSELLA, MDA MDA [id number] 09:03:53 09:36:33 KAITLIN sol 2021-04-03 2021-04-03 Outpatient EL FOSSELLA, MDA MDA [id number] 13:49:14 15:39:37 KAITLIN sol 2021-03-27 2021-03-27 Outpatient EL FOSSELLA, MDA MDA [id number] [id number] 13:54:43 23:59:00 KAITLIN sol 2021-03-27 2021-03-27 Outpatient EL FOSSELLA, MDA MDA [id number] 14:44:39 16:13:07 KAITLIN sol 2021-03-20 2021-03-20 Outpatient JAMES ROGERS, [facility] [id number] 07:57:51 11:28:17 CLAUDIA sol 2020-12-26 2020-12-26 Outpatient JAMES WILL, [facility] [id number] 08:22:14 09:11:04 CARLOS sol 2019-10-31 2019-10-31 Outpatient JAMES JOHNSON, [facility] [id number] 10:46:16 23:59:00 LIEN sol Results Test Description Test Time Test Comments Results Result Comments Source Urine Culture 2022-04-09 01:22:53 Test Item Value Reference Range Interpretation Comme nts Final Report (test code = 8488) No growth Path Review - Urine (test code = The results have been reviewed and 8483) electronically signed by Pathologist:DERIK BERUMEN MD #[id number] [facility] [id number] 01:22:53 Test Item Value Reference Range Interpretation Comments Final Report (test No growth code = 8488) Path Review - Urine The results have been (test code = 8483) reviewed and electronically signed by Pathologist:DERIK BERUMEN MD #[id number] [facility] CenterCortisol, Wocbz7582-63-73 17:00:25 Test Item Value Reference Range Interpretation [...] interpr et this result as vidya l/abnormal. [facility] CenterCortisol, Goncz3102-49-71 17:00:25 Test Item Value Reference Range Interpretation [...] interpr et this result as vidya l/abnormal. [facility] CenterPhosphorus Jaayi6282-31-90 08:47:17 Test Item Value Reference Range Interpretation Comments Phosphorus (test code = 2777-1) 2.6 mg/dL 2.5-4.5 [facility] Center[facility]osph[facility] Lypnc4070-17-39 08:47:17 Test Item Value Reference Range Interpretation Comments Phosphorus (test code = 2777-1) 2.6 mg/dL 2.5-4.5 [facility] CenterOsmolality Owznb3949-52-93 22:39:56 Test Item Value Reference Range Interpretation Comments U Osmolality (test code 346 See_Comment Urin nehal osmolality may = 2695-5) vary widely, de pending on the state of hydration. [place] om urine osmolality can range from 50 [...] interpr et this result as normal/abnormal . [facility] CenterOsmolality Padqm2036-47-05 22:39:56 Test Item Value Reference Range Interpretation Comments U Osmolality (test code 346 See_Comment Urin nehal osmolality may = 2695-5) vary widely, de pending on the state of hydration. [place] om urine osmolality can range from 50 [...] interpr et this result as normal/abnormal . [facility] CenterHemoglobin2022-07-04 22:35:13 Test Item Value Reference Range Interpretation Comments Hgb (test code = 718-7) 10.8 See_Comment L [Au tomated message] The system [email or web address] generated this result transmitted ref erence range: 14.0 - 1 8.0 gm/dL. The refe rence range was not u sed to interpret this result as normal/abnor mal. Lab Interpretation (test Abnormal code = 64071-2) [facility] CenterHemoglobin2022-07-04 22:35:13 Test Item Value Reference Range Interpretation Comments Hgb (test code = 718-7) 10.8 See_Comment L [Au tomated message] The system [email or web address] generated this result transmitted ref erence range: 14.0 - 1 8.0 gm/dL. The refe rence range was not u sed to interpret this result as normal/abnor mal. Lab Interpretation (test Abnormal code = 51692-7) [facility] CenterChloride [id number] 21:32:20 Test Item Value Reference Range Interpretation Comments U Chloride (test code = 66 mEq/L Norm al range not 2078-4) available for c ollections less than 24 ho urs in duration. [facility] CenterChloride Ldanc1785-30-43 21:32:20 Test Item Value Reference Range Interpretation Comments U Chloride (test code = 66 mEq/L Norm al range not 2078-4) available for c ollections less than 24 ho urs in duration. [facility] CenterPotassium Dkero6103-99-03 21:32:19 Test Item Value Reference Range Interpretation Comments U Potassium (test code 23 mEq/L Vidya l range not = 7802) available for c ollections less than 24 ho urs in duration. [facility] CenterPotassium Ogtaz4006-97-04 21:32:19 Test Item Value Reference Range Interpretation Comments U Potassium (test code 23 mEq/L Vidya l range not = 7802) available for c ollections less than 24 ho urs in duration. [facility] CenterCreatinine [id number] 21:32:18 Test Item Value Reference Range Interpretation Comments U Creatinine (test code 39.6 mg/dL 40.0-278.0 L The reference range = 2161-8) listed is for f irst morning urine collection. Lab Interpretation (test Abnormal code = 44684-7) [facility] CenterCreatinine [id number] 21:32:18 Test Item Value Reference Range Interpretation Comments U Creatinine (test code 39.6 mg/dL 40.0-278.0 L The reference range = 2161-8) listed is for f irst morning urine collection. Lab Interpretation (test Abnormal code = 85844-9) [place] [facility] Bknqw8183-29-16 21:32:17 Test Item Value Reference Range Interpretation Comments U Sodium (test code = 76 mEq/L Normal range not available 2955-3) for collections less than 24 hours in dur ation. [place] [facility] Ewumr2859-32-52 21:32:17 Test Item Value Reference Range Interpretation Comments U Sodium (test code = 76 mEq/L Normal range not available 2955-3) for collections less than 24 hours in dur ation. [facility] CenterACTH2022-07-04 19:18:36 Test Item Value Reference Range Interpretation Comments ACTH (test code = 69 pg/mL 7-63 H Results gr eater than 2141-0) 1826 pg/mL may not be reliable due to matrix effect w ith extended diluti on as it exceeds the tower crane operator's recommended claros it. ACTH reference intervals are established for the morning hours f rom 7-10 am. Due to the circadian rhyth m of ACTH levels in plasma, the [facility] ple collection time must be noted. Cauti on should be exerc ised when interpreti ng such values and done in conjunction with clinical contex t. Lab Interpretation (test Abnormal code = 19689-8) [facility] CenterACTH2022-07-04 19:18:36 Test Item Value Reference Range Interpretation Comments ACTH (test code = 69 pg/mL 7-63 H Results gr eater than 2141-0) 1826 pg/mL may not be reliable due to matrix effect w ith extended diluti on as it exceeds the tower crane operator's recommended claros it. ACTH reference intervals are established for the morning hours f rom 7-10 am. Due to the circadian rhyth m of ACTH levels in plasma, the [place] ple collection time must be noted. Cauti on should be exerc ised when interpreti ng such values and done in conjunction with clinical contex t. Lab Interpretation (test Abnormal code = 89181-9) [place] [facility] [id number] 19:13:52 Test Item Value Reference Range Interpretation Comments Sed Rate (test code = 22 See_Comment H Correc cliff results 4537-7) called to Reji Armstrong / P6B at 04/07/2022 1:15:3 8 PM CDTCorrected fr om 22 mm/hr [HI] on 04/07/22 14:13: 51 CDT by Krys Whitlock.Correcte d from 24 mm/hr [HI] o n 04/07/22 13:09: 03 CDT by Shakira Whitlock. [Automated mess age] The system [email or web address] generated this result transmitted ref erence range: 0 - 9 mm /hr. The reference r tejas was not used to interpret this result as normal/abnor mal. Lab Interpretation (test Abnormal code = 30490-9) [place] [facility] [id number] 19:13:52 Test Item Value Reference Range Interpretation Comments Sed Rate (test code = 22 See_Comment H Correc cliff results 4537-7) called to Reji la Rodrick / P6B at 04/07/2022 1:15:3 8 PM CDTCorrected fr om 22 mm/hr [HI] on 04/07/22 14:13: 51 CDT by Krys Whitlock.Correcte d from 24 mm/hr [HI] o n 04/07/22 13:09: 03 CDT by Shakira Whitlock. [Automated mess age] The system [email or web address] generated this result transmitted ref erence range: 0 - 9 mm /hr. The reference r tejas was not used to interpret this result as normal/abnor mal. Lab Interpretation (test Abnormal code = 30327-4) [facility] Add-On Test 2022-04-07 18:44:02 Test Item Value Reference Range Interpretation Comments Ordered (test code = Test Added 6568) Test Needed (test code = total cortisol level 7604) [facility] Add-On Test 2022-04-07 18:44:02 Test Item Value Reference Range Interpretation Comments Ordered (test code = Test Added 6568) Test Needed (test code = total cortisol level 7604) [facility] CenterProlactin2022-07-04 16:38:48 Test Item Value Reference Range Interpretation Comments Prolactin (test code 8.6 ng/mL 4.0-15.2 Results greater than = 2842-3) 4700.0 ng/mL ma y not be reliable due to matrix effect with ext ended dilution as it exceeds the manufacture r s recommended l imit. Caution should be exercised when interpreting cyr ch values and done in conjunction [facility] clinical contex t. [facility] CenterProlactin2022-07-04 16:38:48 Test Item Value Reference Range Interpretation Comments Prolactin (test code 8.6 ng/mL 4.0-15.2 Results greater than = 2842-3) 4700.0 ng/mL ma y not be reliable due to matrix effect with ext ended dilution as it exceeds the manufacture r s recommended l imit. Caution should be exercised when interpreting cyr ch values and done in conjunction [facility] clinical contex t. [facility] CenterTestosterone [id number] 16:38:47 Test Item Value Reference Range Interpretation Comments Testoster Tot (test 324 ng/dL 193-740 Referenc e Ranges: code = 2986-8) Male: Age 20 - 49 249 - 836 Age >=50 193 - 740 Female: Age 20 - 49 8 - 48 Age & gt;=50 3 - 41 [facility] CenterTestosterone [id number] 16:38:47 Test Item Value Reference Range Interpretation Comments Testoster Tot (test 324 ng/dL 193-740 Referenc e Ranges: code = 2986-8) Male: Age 20 - 49 249 - 836 Age >=50 193 - 740 Female: Age 20 - 49 8 - 48 Age & gt;=50 3 - 41 [facility]2022-07-04 16:38:46 Test Item Value Reference Range Interpretation Comments FSH (test code = 11.0 See_Comment Female Foll icle Stimulating 5571) Hormone Referen ce Ranges: LOW HIGHFollicular 3.5 12.5Ovulation 4 .7 21.5Luteal 1.7 7.7Postmeno pause 25.8 134.8 [Automate d message] The system which ge nerated this result transmit cliff reference range: 1.5 - 12 .4 mIU/mL. The reference range was not used to interpret th is result as normal/abnormal . [facility]2022-07-04 16:38:46 Test Item Value Reference Range Interpretation Comments FSH (test code = 11.0 See_Comment Female Foll icle Stimulating 5571) Hormone Referen ce Ranges: LOW HIGHFollicular 3.5 12.5Ovulation 4 .7 21.5Luteal 1.7 7.7Postmeno pause 25.8 134.8 [Automate d message] The system which ge nerated this result transmit cliff reference range: 1.5 - 12 .4 mIU/mL. The reference range was not used to interpret th is result as normal/abnormal . [place] 93211022-07-04 16:38:45 Test Item Value Reference Range Interpretation Comments CRP (test code = 9.06 mg/L [place] CRP 02184-0) assay are as fo llows: Reference range s when used to assess cardi ac risk: <1.00 mg/L Low cardiovascular risk 1.00-3.00 mg/L Average cardiovascular risk >3.00 mg/L High cardi ovascular risk.Reference ranges when used to assess inflammatory responses: Less than or equal to 10.00 mg/L. [place] 93211022-07-04 16:38:45 Test Item Value Reference Range Interpretation Comments CRP (test code = 9.06 mg/L [place] CRP 76818-9) assay are as fo llows: Reference range s when used to assess cardi ac risk: <1.00 mg/L Low cardiovascular risk 1.00-3.00 mg/L Average cardiovascular risk >3.00 mg/L High cardi ovascular risk.Reference ranges when used to assess inflammatory responses: Less than or equal to 10.00 mg/L. [facility] CenterLH2022-07-04 16:38:44 Test Item Value Reference Range Interpretation Comments LH (test code = 7.8 See_Comment Female Lutei nizing Hormone 63561-5) Reference Range s: LOW HIGHFollicular 2.4 12.6Ovulation 1 4.0 95.6Luteal 1.0 11.4Postmen opause 7.7 58.5 [Automated message] The system which ge nerated this result transmit cliff reference range: 1.7 - 8. 6 mIU/mL. The reference range was not used to interpret th is result as normal/abnormal . [facility] CenterLH2022-07-04 16:38:44 Test Item Value Reference Range Interpretation Comments LH (test code = 7.8 See_Comment Female Lutei nizing Hormone 15462-8) Reference Range s: LOW HIGHFollicular 2.4 12.6Ovulation 1 4.0 95.6Luteal 1.0 11.4Postmen opause 7.7 58.5 [Automated message] The system which ge nerated this result transmit cliff reference range: 1.7 - 8. 6 mIU/mL. The reference range was not used to interpret th is result as normal/abnormal . [facility] [id number] 07:24:05 Test Item Value Reference Range Interpretation Comments Sodium Lvl (test code = 127 See_Comment L [Au tomated message] 2951-2) The system [employer] generated this result transmitted ref erence range: 136 - 14 5 mEq/L. The refe rence range was not u sed to interpret this result as normal/abnor mal. Lab Interpretation (test Abnormal code = 71370-2) [facility] Psirp8737-58-04 07:24:05 Test Item Value Reference Range Interpretation Comments Sodium Lvl (test code = 127 See_Comment L [Au tomated message] 2951-2) The system [email or web address] generated this result transmitted ref erence range: 136 - 14 5 mEq/L. The refe rence range was not u sed to interpret this result as normal/abnor mal. Lab Interpretation (test Abnormal code = 77001-6) [facility] CenterCOVID-19 (SARS-CoV-2)Aaibvviijqxk-JO2932-18-04 03:03:17 Test Item Value Reference Range Interpretation Comments COVID19 Not Detected Not Detected (SARS-CoV-2) (test code = 34288-7) COVID19 SARS Inpatient Indication (test Admission code = 12846) Covid 19 Comment See Note The antwon S ARS-CoV-2 (test code = [place] [address]) use on the urszula s Leydi System [...] sheet for patie nts provided by the tower crane operator ([employer]) can be rev iewed at: https://www.fda .gov/m edia/689588/yovani nload. A fact sheet fo r Health Care pro viders is provided by the tower crane operator ([employer]) and can be reviewed at: https://www.fda .gov/m edia/406741/yovani nload Results must be interpreted wit hin [...] high-comple xity tests. [facility], CLIA Accreditation #[id number] and CAP Accreditation #[id number], verif ied the performance characteristics of this assay. Int ernal controls are us ed to monitor all sta ges of the test proces s. [facility] CenterCOVID-19 (SARS-CoV-2)Qnenlbisyjae-ZU2780-56-04 03:03:17 Test Item Value Reference Range Interpretation Comments COVID19 Not Detected Not Detected (SARS-CoV-2) (test code = 52919-1) COVID19 SARS Inpatient Indication (test Admission code = 36929) Covid 19 Comment See Note The antwon S ARS-CoV-2 (test code = [place] [address]) use on the urszula s Leydi System [...] sheet for patie nts provided by the tower crane operator ([employer]) can be rev iewed at: https://www.fda .gov/m edia/243340/yovani nload. A fact sheet fo r Health Care pro viders is provided by the tower crane operator ([employer]) and can be reviewed at: https://www.fda .gov/m edia/230824/yovani nload Results must be interpreted wit hin [...] Th is assay has been authorized by [facility] for use only un chi Emergency Use Authorization ( EUA) in laboratories that have been CLIA-certified to perform moderate-comple xity and high-comple xity tests. [facility], CLIA Accreditation #[id number] and CAP Accreditation #[id number], verif ied the performance characteristics of this assay. Int ernal controls are us ed to monitor all sta ges of the test proces s. [facility] CenterOsmolality2022-07-04 02:56:22 Test Item Value Reference Range Interpretation [...] mal. Lab Interpretation (test Abnormal code = 89823-5) [facility] CenterOsmolality2022-07-04 02:56:22 Test Item Value Reference Range Interpretation [...] mal. Lab Interpretation (test Abnormal code = 52860-4) [facility] CenterPOC Chem 8 without Hemoglobin and Pcbcmrrjdk5907-08-59 01:24:35 Test Item Value Reference Range Interpretation Comments POC NA (test code = 123 See_Comment L [Automa cliff message] 73083-7) The system whic h generated this result transmitted ref erence range: 138 - 14 6 mEq/L. The refe rence range was not u sed to interpret this result as normal/abnor mal. POC K (test code = 4.3 See_Comment Method de scription: 69712-2) The i-STAT is a n analyzer used f or in vitro quantific ation of various anal ytes in whole blood. The device uses a s ronen disposable cart ridge which contains microfabricated sensors, a calibration frantz ution, fluidics system , and a waste chamber . Each test cartridge contains chemic ally sensitive biose nsors on a silicon ch ip that are config ured to perform [...] L [Automa cliff message] 2068-12) The system [email or web address] generated this result transmitted ref erence range: 98 - 109 mEq/L. The refe rence range was not u sed to interpret this result as normal/abnor mal. POC VTCO2 (test code 27 See_Comment [Autom ated message] = 2026-10) The system [email or web address] generated this result transmitted ref erence range: 24 - 29 mEq/L. The reference r tejas was not used to interpret this result as normal/abnor mal. POC Anion Gap (test 13 mmol/L - code = 33002) POC BUN (test code = 45 mg/dL 8-26 H 6299-2) POC Crea (test code 1.1 mg/dL 0.6-1.3 Medicati ons, = 22772-3) especially hydroxyurea or supplements, cyr ch as [...] which contains microfabricated sensors, a calibration frantz [employer], fluidics system , and a waste chamber . Each test cartridge contains chemic ally sensitive biose nsors on a [place]lev[place] ip that are config ured to perform spec ific tests. The microfabricated sensors measure analyte concent ration by an electroch emical assay. POC eGFR-AA (test 71 See_Comment Normal eGF R >= 60 code = 80886-6) mL/min/1.73 m2 The eGFR is calcula cliff [...] dialysi s) [Automated mess age] The system [email or web address] generated this result transmitted ref erence range: >=60 mL/min/1.73 m2. The reference range was not used to int erpret this result as normal/abnormal . POC eGFR-GOLDIE (test 61 See_Comment Normal eG FR >= 60 code = 18989-6) mL/min/1.73 m2 The eGFR is calcula cliff [...] dialysi s) [Automated mess age] The system [email or web address] generated this result transmitted ref erence range: >=60 mL/min/1.73 m2. The reference range was not used to int erpret this result as normal/abnormal . POC Glucose (test 89 mg/dL 70-99 Medication s, code = 58511-4) especially hydroxyurea, ca n interfere with test results causing a falsely and significantly h igher result than exp ected. If a problem is suspected with a patient's resul t, a sample should b e sent to the laborato ry for confirmatory te sting. POC Ion Ca (test 1.18 mmol/L 1.12-1.32 code = 81564-5) POC Sample Type Venous (test code = 6690) POC Clean Dev (test Yes code = 6672) Performing Lab (test MDA Main Main Ca mpus code = 03262) [facility] Cli nical Lab, [facility] Cent[facility]anjana JovelWild [place], [place] [address]; [place]: Danielle Nguyen MD Lab Interpretation Abnormal (test code = 53784-9) [facility] OrlandoPO Chem 8 without Hemoglobin and Xbopsdxwtj6494-16-64 01:24:35 Test Item Value Reference Range Interpretation Comments POC NA (test code = 123 See_Comment L [Automa cliff message] 75038-9) The system [email or web address] generated this result transmitted ref erence range: 138 - 14 6 mEq/L. The refe rence range was not u sed to interpret this result as normal/abnor mal. POC K (test code = 4.3 See_Comment Method de scription: 90670-3) The i-STAT is a n analyzer used f or in vitro quantific ation of various anal ytes in whole blood. The device uses a s ronen disposable cart ridge which contains microfabricated sensors, a calibration frantz [employer], fluidics system , and a waste chamber . Each test cartridge contains chemic ally sensitive biose nsors on a [place] ip that are config ured to perform [...] = 88 See_Comment L [Automa cliff message] 8103-3) The system [email or web address] generated this result transmitted ref erence range: 98 - 109 mEq/L. The refe rence range was not u sed to interpret this result as normal/abnor mal. POC VTCO2 (test code 27 See_Comment [Autom ated message] = 2026-10) The system [email or web address] generated this result transmitted ref erence range: 24 - 29 mEq/L. The reference r tejas was not used to interpret this result as normal/abnor mal. POC Anion Gap (test 13 mmol/L -20 code = 94000) POC BUN (test code = 45 mg/dL 8-26 H 6299-2) POC Crea (test code 1.1 mg/dL 0.6-1.3 Medicati ons, = 27902-0) especially hydroxyurea or supplements, cyr ch as [...] which contains microfabricated sensors, a calibration frantz [employer], fluidics system , and a waste chamber . Each test cartridge contains chemic ally sensitive biose nsors on a [place]lev[place] ip that are config ured to perform spec ific tests. The microfabricated sensors measure analyte concent ration by an electroch emical assay. POC eGFR-AA (test 71 See_Comment Normal eGF R >= 60 code = 97188-9) mL/min/1.73 m2 The eGFR is calcula cliff [...] dialysi s) [Automated mess age] The system [email or web address] generated this result transmitted ref erence range: >=60 mL/min/1.73 m2. The reference range was not used to int erpret this result as normal/abnormal . POC eGFR-GOLDIE (test 61 See_Comment Normal eG FR >= 60 code = 25660-0) mL/min/1.73 m2 The eGFR is calcula cliff using the CKD-E PI equation. The e GFR declines with a ge. eGFR <60 mL/min /1.73 m2 is considere d as "decreased" Thi s equation should only be used for pat ients 18 and older. According to [employer]'s Ki dney Disease Outcome [...] dialysi s) [Automated mess age] The system [email or web address] generated this result transmitted ref erence range: >=60 mL/min/1.73 m2. The reference range was not used to int erpret this result as normal/abnormal . POC Glucose (test 89 mg/dL 70-99 Medication s, code = 09781-8) especially hydroxyurea, ca n interfere with test results causing a falsely and significantly h igher result than exp ected. If a problem is suspected with a patient's resul t, a [facility]. POC Ion Ca (test 1.18 mmol/L 1.12-1.32 code = 44162-0) POC Sample Type Venous (test code = 6690) POC Clean Dev (test Yes code = 6672) Performing Lab (test MDA Main Main Ca mpus code = 34959) [facility] Cli nical Lab, [address], [place] [address]; [place]: Danielle Nguyen MD Lab Interpretation Abnormal (test code = 14556-1) [facility]27 Test Item Value Reference Range Interpretation Comments LDH (test code = 195 U/L 135-225 Results gre ater than 1651 60759-1) U/L may not be reliable due to matrix effec t with extended diluti on as it exceeds the man ufacturer's recommended claros it. Caution should be exerc ised when interpreting cyr ch values and done in con junction with clinical c ontext. [facility]:04[facility]27 Test Item Value Reference Range Interpretation Comments LDH (test code = 195 U/L 135-225 Results gre ater than 1651 87039-6) U/L may not be reliable due to matrix effec t with extended diluti on as it exceeds the man ufacturer's recommended claros it. Caution should be exerc ised when interpreting cyr ch values and done in con junction with clinical c ontext. [facility]:02:22 Test Item Value Reference Range Interpretation Comments aPTT (test code = 32.7 See_Comment [Automate d message] The 49373-4) system which ge nerated this result transmit cliff reference range : 22.8 - 34.2 second(s). The reference range was not used to interpr et this result as vidya l/abnormal. [facility] 00:02:22 Test Item Value Reference Range Interpretation Comments aPTT (test code = 32.7 See_Comment [Automate d message] The 59239-8) system which ge nerated this result transmit cliff reference range : 22.8 - 34.2 second(s). The reference range was not used to interpr et this result as vidya l/abnormal. [facility] CenterProthrombin Time with [id number] 00:02:21 Test Item Value Reference Range Interpretation Comments PT (test code = 5902-2) 15.4 See_Comment H [Au tomated message] The system [email or web address] generated this result transmitted ref erence range: 11.9 - 1 4.1 second(s). The reference range was not used to int erpret this result as normal/abnormal . INR (test code = 6301-6) 1.22 0.89-1.10 H Lab Interpretation (test Abnormal code = 00724-9) [facility]Proth[facility] with [id number] 00:02:21 Test Item Value Reference Range Interpretation Comments PT (test code = 5902-2) 15.4 See_Comment H [Au tomated message] The system [email or web address] generated this result transmitted ref erence range: 11.9 - 1 4.1 second(s). The reference range was not used to int erpret this result as normal/abnormal . INR (test code = 6301-6) 1.22 0.89-1.10 H Lab Interpretation (test Abnormal code = 66502-3) [facility] Center[facility]inalysis w/Microscopic if [id number] 23:47:34 Test Item Value Reference Range Interpretation Comments UA Color (test code = Red Straw-Yellow A 61903-7) UA Appear (test code = Bloody Clear A 5767-9) UA Glucose (test code = NEG NEG mg/dL 5792-7) UA Bili (test code = NEG NEG 5770-3) UA Ketones (test code = NEG NEG mg/dL 5797-6) UA Spec Grav (test code = 1.009 1.003-1.035 5810-7) UA Blood (test code = Large NEG A Correc cliff from 5794-3) Moderate [ABN] on 04/06/22 18:47: 34 CDT by Mile Lockhart. UA pH (test code = 7.0 5.0-9.0 5803-2) UA Protein (test code = 100 mg/dL NEG A 5804-0) UA Urobilinogen (test NEG NEG code = 5818-0) UA Nitrite (test code = NEG NEG 5802-4) UA Leuk Est (test code = NEG NEG 5799-2) Lab Interpretation (test Abnormal code = 27991-9) [facility]/Microscopic if [id number] 23:47:34 Test Item Value Reference Range Interpretation Comments UA Color (test code = Red Straw-Yellow A 93912-8) UA Appear (test code = Bloody Clear A 5767-9) UA Glucose (test code = NEG NEG mg/dL 5792-7) UA Bili (test code = NEG NEG 5770-3) UA Ketones (test code = NEG NEG mg/dL 5797-6) UA Spec Grav (test code = 1.009 1.003-1.035 5810-7) UA Blood (test code = Large NEG A Correc cliff from 5794-3) Moderate [ABN] on 04/06/22 18:47: 34 CDT by Mile Lockhart. UA pH (test code = 7.0 5.0-9.0 5803-2) UA Protein (test code = 100 mg/dL NEG A 5804-0) UA Urobilinogen (test NEG NEG code = 5818-0) UA Nitrite (test code = NEG NEG 5802-4) UA Leuk Est (test code = NEG NEG 5799-2) Lab Interpretation (test Abnormal code = 79122-1) [facility] Center[facility] with Microscopic 2022-04-06 23:47:20 Test Item Value Reference Interpretation Comments Range UA WBC (test code = NOT SEEN See_Comment [Automa clfif 50357-7) message] The system which generated this result transmitted reference range : 0 - 2 /HPF. The reference range was not used to interpret this result as normal/abnormal . UA RBC (test code = >182 See_Comment H [Automa cliff 16470-6) message] The system which generated this result transmitted reference range : 0 - 2 /HPF. The reference range was not used to interpret this result as normal/abnormal . UA Mucous (test code NOT SEEN Not Seen-Trace = 40478-3) /HPF UA Bacteria (test NOT SEEN NOT SEEN /HPF code = 41041-8) UA Squam Epi (test NOT SEEN None-Occasiona code = 86819-0) l /HPF KATLIN (test code = Some reporting KATLIN) parameters within the Urinalysis test have changed due to the implementation of new instrumentation in the [facility], allowing greater sensitivity of measurement. Urinalysis results reported by the [facility] using existing instrumentation, as well as Urinalysis testing performed manually or by backup methodology at the [facility] will remain relatively unchanged. New reporting parameters and units will now be reported for all [facility]. Lab Interpretation Abnormal (test code = 55153-0) [facility] Microscopic 2022-04-06 23:47:20 Test Item Value Reference Interpretation Comments Range UA WBC (test code = NOT SEEN See_Comment [[place] cliff 88954-8) message] The system which generated this result transmitted reference range : 0 - 2 /HPF. The reference range was not used to interpret this result as normal/abnormal . UA RBC (test code = >182 See_Comment H [[place]oma cliff 77210-9) message] The system which generated this result transmitted reference range : 0 - 2 /HPF. The reference range was not used to interpret this result as normal/abnormal . UA Mucous (test code NOT SEEN Not Seen-Trace = 31662-7) /HPF UA Bacteria (test NOT SEEN NOT SEEN /HPF code = 26683-7) UA Squam Epi (test NOT SEEN None-Occasiona code = 42151-2) l /HPF KATLIN (test code = Some reporting KATLIN) parameters within the Urinalysis test have changed due to the implementation of new instrumentation in the [facility], allowing greater sensitivity of measurement. Urinalysis results reported by the [facility] using existing instrumentation, as well as Urinalysis testing performed manually or by backup methodology at the [facility] will remain relatively unchanged. New reporting parameters and units will now be reported for all [facility]. Lab Interpretation Abnormal (test code = 97114-8) [facility] Interpretation 2022-04-02 15:40:55 Test Item Value Reference Range Interpretation Comments Submitted Clinical History [id number] (test code = 93315) mbGFuZzEwMzNcZnRuYm pcdWMxIHtccnRmMVxzc 3EtU8AaQmGnLNxdhwLr XGRlZmxhbmcxMDMzXGZ 0bmJqXHVjMVxkZWZmMH kwXp8kgATtaWggBeBcS NEow6eazkASkfiiuIq9 x8prJDTfYtM4gZAmRPc tL5kmdxYuvMXyNQJyVV f7bN80XSVxoT1nsLMbD MrmmbPwDtJ6OQjkKTKk DpY7NIZueFOeLWXyQ3w yZWQwXGdyZWVuMFxibH RtBWA7xZysi5X9oLUiy GVldHtcZjBcZnMyMiBO u0ObNPs0gPdfG7ZrGLB wQnR4qWTtSTApSXowBW LzBEOyhuI6dJ95KYgct iM0jVNso0Wki42wl707 kH3eyNIyHGO2QMQuKUM fdJAcPBKoUHC4HGJeuI PdJ4kdCTZaHX0rccbjD DqkQMvyYNVjqUZ8YOCz xJXeN6RtDWJwUNlrKGL bcyp9McTiTm2rdHTanD pgDDgjo0zxf9vvdTPmC ot7TARmZsOyKpfgABks j8Qql0jqWHTebx0fIVR 2bOTddDnof2N9sBGcKW JqvHGrbwUyZSBaAhS1K XlhTW2fnw42AKZzIQR4 qm8loGTznMmeczLfsTZ fDBqcU3JrLOWey227JX GwS0FiNZYbe0B6nzMwF mSbKLWmpOA6ieN0WHCj YIo6yDKebrU4cgTwoLR iT5uhjO0cJDGrII6kth brs8fyYRtkXPbrGBJmy SS2qoG8IDVrtNHaB9Al lM0xJKUyQQntHWGgfut 1VzLyDv9txABbaFpjWN xzYmtwYWdlXHBnbmNvb nRccGduZGVjXHBsYWlu XHBsYWluXGYwXGZzMjR kcGqalHfmqQ4xCeWwHs SrDBucWX9oLLWxZ3rne AKmHUOtGZMyP8cyXkMm wG3jzIvuNFjpyjTnJEC pLRViTNArV9OaF6EeZH sGVwwmOD6xoCctfG6lJ nXrDbHuPbqjOY4fCJVx F3cvvMUtSWMcWTElE2l yKqTyfX2daKwoKVpumu LtFCVdog23 Diagnosis (test code = 34) a2ysdCAtKECsoRC3ZOC gPZOeb3tqp5XjvEAcyB SvESgdlLGoqsOsuf92c DF1vK40YA3yTCOkPaL1 IDSszgO3Mdw9JLBgNKA inLOfI810b4asn8kaqq EmlNH6YLZbEFYiB4ZvE I3zTTCagZYiM54iiHUh RAE7IVVlPQSzhVGzYRE xFMW5ABNzqAFtG3fhNL CxQR5xihsgMSoyTShkS FKxaYO0EJKduGBiW2Hu FAIuQVmcCTInhni8ErJ jKv2blJSlqZpmINzvEO JkXHBsYWluXGZzMjAgQ B1fEIHtAOMUeoooVCL3 OYUbMCOpWSQvPLGsQ4g 0IGxhdGVyYWwgYmxhZG KuaqI3AWmsIDQqrstyp eHbkEQlTN1sPFBen5Bl dGlvbjpccGFyXHRhYlx jZjAgVVJPVEhFTElBTC DBAFAYCR1ROTQyYKmVZ 5inD9GGCAYeULxCZiWY VMCXZYeKQR1gEFGLOY7 TWPVAV1FHRQUbVCAtmd xmaTcyMCBNdXNjdWxhc qyyMJRnb1LpbXQaqULi l8UbaRSinaBvjW2glkU ruXTxUTQuvHO7xF3ckp 8lfIUfCF3iQLAyHxies XRpdmUgbHltcGhvdmFz X7OuBPOelO70HLGfw99 lyPGcl0MtpE5srHJiDX ZpMFxjZjFccGFyIENDR 7piRYN3 Gross Description (test e7bbcNJuWMQkvPM7XVS code = 6882907649) yKZHpo5ods2AirLOixW VnCKhioZJpsuFzyu34n RN7iF10BC1aBLSeOgL2 GEPxgaR7Gnt3QVFbCSS fdTVnF579z3bti7jzls BkyFU0JQUxJPAnP6AqM L4dFZImkNCfO98dtNDc WGC2GHDdISDjkWWbQJX mWIV2JVYsqWWgY0anUB ZbSA9ivykjRPfxQOrfV FQzbLH8PVMgqJIhR9Jb QFZgGLtcFRVjxtm6QuE eFt2voMBlqOofZDjhWX Hcg3hzKPVgeMBgUYB3A FxcaWQgNTEwMDAgXFx0 SFAkPJzimMOvTZ3csYe sAveacByrl7RjkEDtEO lkIDUxMDAyIFxcZGIgT 5GPMQEbGHUwLCS2MHSr BQw9JNvpW4CBIWSpYEM 9QGR1TGTcMwR0HZm7BC TUUb2oPMT1HZOwFwX3L CG0DGK5DiNqDLZzFpEg XGZsIFxcZiBBcmlhbCB cXGZzIDEwIFxcZmIgXF shY23fpGygfY5wQgfia iRhHNA5DKCreqbaPbPe VXJpbmFyeSBibGFkZGV yLCByaWdodCBsYXRlcm YrOOOlCDFmPKGrt4Eks OfczXBef9Tgf9l8PTMw ByMuCFSgB4Kfw40kYIM vyiUaCianCwRvF1BnRK RUoKx2pKDvHCArxHDyV WS3KADbqh2buU4sVFZm ITEcKZ4yhu55noEyBOD 2hPMohJvmE7V7mUHvrV plZCBmcmFnbWVudHMgb 1OoyBogd3RoGQ2wXSI4 cmluZyAyLjQgeCAxLjU otFAyBfFeD47fwC7iDO dncmVnYXRlLCBlbnRpc xHacFClaFQoxQF8LJRy nB9bYENeWLUrNBRckUL nqODjeKksEczvhFN6OV sqCsqqoX1sfMQACNOOU wyFEfnbojYdRW3DIJ4H ZcSSCB04FkQwKHI6ZPl SM1WHsWK2Eio4WIk0xX tcZmxkcnNsdCBcJzFjf X5ELZsuBzsmuKN2PJtu YwlumF5ntLTYUQCBRed OVxtmftBpJT7QZL8SLT 7ChBKiNMW6fTW1JDKQP drijUY0cKU8xU84WYVv NJHuyFKdXMqbC798GXZ gOPbtWAGkUhQ2LYCxiL WiZLT7NR5yuRbfDTAwW 4IxZ8IciuD7ETFkri8= [employer]arker Block(s) (test e0umyUVnOZVoiKK6VLP code = 9841) tWFEgl0gud0AthDLuaG BuWXfwsUWlxlGnkn95a GY0yZ42HZ2oPOFlBoY5 IOOcemS6Xkb0VTZoRJV unLFeN581c2agy8fevf RqbIV2vDrgFJShfsxsX dJ3CDjcPHEypwpfJMc0 SZruGTLrfHK6LTKraRS uZ1PvRDMdWR8wlib0CZ G2SNfoPZRuRbW6TZZbp LPbEBMhoOijRKvdk876 ZOE7TeAiSRBqglRkbPr jnD2qSpSqMYIFMMspTI J9 Disclaimer (test code = f1nhvNDiFUJbwXAeDnH 9844) cHTSoTOIvg4ngTEKhtT FuZzEwMzNcZnRuYmpcd BUaMDJaUpFfk9mbq798 mAMnt6jwTVKiLyB0eXE rXPZcqBNiA163XAUeBM amz9myq3MfQWMgbWQyx 2C2JYBPwrhyqZs4wRvo T36cr7S0VeytJ6anKOF rAWZsA9JhJH5hWVMlVb x6PBR7NAH6OUIgOOMnA 8GmFI5xBDKwbZVaKGh9 i2oeeIinLDAjXIA4q1r aVMzegfUsPR6usc9ecT k0h8bmxqPsAKExZGIho PTWNRZzT0AgfJauQp2z gGy4jDatZrjrTOS5Fky 1CY0qko04kim9pRdvEJ SodxhmGpC4LJczCMGqg vmaXJm3YEnrHXMmlAG1 BIKjvAPxQ3SfVJQvIH9 luaf5QCJ8UFtiNVXkJl Y8IHYrjWDeUCMnzLyoA Qohv529PDC3QsZiJM1y P7Als3M7xI1hpNIcAXJ feZLmRoCvKAOwxx4faZ HpXXxsq5OmHXJ0siE3f ICcwBNuMGOmJK10Mpem v8IjAzqqIFI8MPWpjrX ep3Xjb6evQyMpksClO8 ydD9ZrCBPpGKZkSKDeO fTdcfTbs9Zbt1TbwDDh bBp2f2oyGFIzBYDpeNe fe1eiMPL7JPGtT8N3bW Wdh8acIElzLTCpzKF6l yJ5TSSgiDCpE3TfiL9k DTGuWT0skym7w6rbLKM 5ILzpNAXdGqM0wkQ2SY BcaGVhZGVyeTcyMFxmb 541VMM2QrEcPLAsl2Ri M1GncCdpE44hmTnbP48 bJXBxwIotwE5yzYxqsL 5cZjBcZnMyNFxxbFxwb WZgiohkYAsitgH0IEui mtecQTDwGEffU4pnAjC nZTYnjIwmRSeep6BvQK QcMGDmAxcfckU5UFGTc 44hTMDry7LoBDSsrI1q fOTiXDtoleYukZT8WRg hdmUgYmVlbiBkZXZlbG 0bZFMcGI3eWXMtzwKym x0mdsYySEBiDLRaQ6Xi cmlzdGljcyBkZXRlcm1 kwmQwFMX3ZSNXMX2PSH KhVUGbp30lIOXdlWoaj J5dtBEmrrUvQXQav8Dl uH0gzVCCELYmR5jiNK6 zIGzmv6XvoDNdoXAbyJ K7VTAfg2UeTjOxseAdz OImbONqA4QxuFckE1bt VWEgBYNpkcFamSHjk5Z bYMOezIT9kQSvEX6JKi GCl04kCETlPRNOfiFaT WAozFahlOT3wfO0eT2g LiBJZiBhcHBsaWNhYmx uQRCld475bq3fxfV5IG CfTLYdbwiza6FaFVFuE GEquJ38FHUoLFPdau1q sklzaYZbgxAkC9Tvsdq 5uW2xMAIdAXtvHRCgKX ZzMjJcbGFuZzEwMzNca GljaFxmMVxkYmNoXGYx BHiqG1ttZrJiUoFuAvc wYXJ9 [facility] 2022-04-02 15:40:55 Test Item Value Reference Range Interpretation Comments Submitted Clinical History x3lpeDZzOZAgx3egOVM (test code = 50930) mbGFuZzEwMzNcZnRuYm pcdWMxIHtccnRmMVxzc 5CpV2EqSbXkQZathpTl XGRlZmxhbmcxMDMzXGZ 0bmJqXHVjMVxkZWZmMH uhNm2vlOUazOhyFvTaX CLky2uyirEAjxoaxIu5 q1mnEXZpMhP3hXWeDKl sO4dwkkDpiOPdVHNbXN b6uR67UEGumL4weMMxJ IiydfRrCyX3CHvoEQAu TpB2IVQkxZNkPZNyH2x yZWQwXGdyZWVuMFxibH JlZBG4rOnyt4G4nKBji GVldHtcZjBcZnMyMiBO d8AuEJw1iJriH0YfERL kKtQ8kMHiLPPdSWjjQQ NzYYVbktS7mH74VRzoi kM2cXCxl5Rqh60td858 nL1jcPRsHDP4UYPuAUY jvUSiBUNhPIJ4OVTncY VlJ9fnJXReDW6dcfjfP XgiQEoeVSMxwVM5SDTn aHMyQ4XvOIVsAFogAGH lyfe7KvAfRn3hjLZowI qrZJzou1hry9nzzQDyQ xa3CRWdIzEjPjgdGLyt e8Fav3ynDBTjif1nTEE 5cUJuvIapt9K6hLFjDP RpyHYpelDqMJRsPlQ8I UrmDG7ych67NYMhJYK0 hy4mhVSpcXgnklLviIR eYLqwL2CeYXKab130LA JaL2QjDCTmb2G4cjNaE yIsUJUtqPN2peP3UAAh SXf1nWVtxdL5siRqqGI xH3hbnO6dCETxQW8qgp bpy0iiAPqbXKgoLIQuf XH5izV3GHRluWDzP9Hv wB1cGCAkISgbENTssyi 9GvOhQw4qvXAanOntOC xzYmtwYWdlXHBnbmNvb nRccGduZGVjXHBsYWlu XHBsYWluXGYwXGZzMjR bsIfwvSgimE9oGpDeSh YuGTjlGR5iDIHeM2tvu GByNTJsHHOjZ4yfEkVr zK3wmXhkTOwlrxDoNVJ bMOQwSXOnK1WzN7SsFJ yBOgdkYU8bnEigyR5sB pEuNuQqAqquES5iBWWk L9rmdFTzXWTxACPwH7n wIxYswT0erCejOHroux PoNIMnum86 Diagnosis (test code = 34) d7cbwLZoZSPatDW0QYW fWEUuv1iay2TzeSTocN ZzVMlyzGWgmrJldb67v GK7rY24XE7bYEWjChC9 MIVrmmK1Cjc4SLOkRSP klHCjE660c6jrk6jfds DchVN3HQAoQDOwF6QpB L6zVNNjuPPrX74ynAUv NIK8CRKzMXWksMOlFXE rKCA2AKItiWDhJ6ewSV XxKV5cpnnqNLyxBOslI NWjiBN2CNJmjTRhJ7Nk CMSwFLsjSPEkovg0PyD hPy6eoAMviDggVAcdLO JkXHBsYWluXGZzMjAgQ I8rXSUbUJLHlcyvTVP5 YFMpWJXfEHVoGZCxC4j 0IGxhdGVyYWwgYmxhZG NenqU4OSwkAMCnqclvw iXdvPJcEP9pWDUld2Dw dGlvbjpccGFyXHRhYlx jZjAgVVJPVEhFTElBTC FGSBGFZF9KMGPqCHdPZ 0uqJ7UNHQMnDDpDTjKG PBREHIcUYX0gCVRSJU2 PMOVBL1TELZMyGNLsab xmaTcyMCBNdXNjdWxhc uttVLKsu6ZxqZLnlZYu z9EhvXNgqpKqsW9rclE vmVJpAOSngRL2mD2sbq 0dlMIfOB7nXQIrYhwmj XRpdmUgbHltcGhvdmFz K5GdDSMmsA05CWRkj66 mvIEgd6ZyjO4udAWvKB ZpMFxjZjFccGFyIENDR 2qyIKV7 Gross Description (test k2dwtHMuNSOshDD8RBO code = [id number]) oKMFck7fyb6PddURvnF DeQPbipRDyuhNwqb07l LY8dM45FW3hZEUsBsE6 MFJkzrL9Rjt7QUBdWKE ibWBuN577f2ldb5zijj GkiFM1QIVpKWSzJ6EoA W9sBMTcaVTcI41ezJTn VWT3EGCwDSUphYMbTNF zSRD8LEJybZUvG6ppGI KsMS5cyauiVRmvARfvE WVfvTC1LUFrlGZdK1Sx TQLtOQnlONFjhpw0FdK sMb5rtPRijNngMYmuEY Ohp2ftKUFfgLRkKLV9W FxcaWQgNTEwMDAgXFx0 TRZxEHaasSSjQD6snVh tZvniaIrlc3FsaDEfNS lkIDUxMDAyIFxcZGIgT 8HZEHPaZOEzXCS0ZWTc ACe1TOeuZ8AEINNvMLR 1NTP5VEJiLaM5TIc0JX ZYPx9hBZS6RCUuLrP1P FC8TQR1EoFlQREsBoIr XGZsIFxcZiBBcmlhbCB cXGZzIDEwIFxcZmIgXF eiH92yyWmhrM2kOvmbi hFwHAN9CHRrmxgvBtPi VXJpbmFyeSBibGFkZGV yLCByaWdodCBsYXRlcm YzNTTfWAQhUSHoc1Tmr OjldQNuf0Uoh5q1MDTw MnFwLMThC6Irl03tGFQ vkyIyThjuQqWjS4HsQZ YZeTi7nSBqODHiiUPsG TL3CDJcfi5sjF3wBSEr COXtQA6qof46vtXuDBU 0rLRiuDomU5M6kPEtmQ plZCBmcmFnbWVudHMgb 1VceWnqd5FnFJ0gBIL3 cmluZyAyLjQgeCAxLjU rhCKbIbWrC53peF3pQM dncmVnYXRlLCBlbnRpc cTlwPFbeZMnaKI1PYNq nG6eWOOxFNHiUTNfpGD idDZzzHdgNwbijBE4AU luZhtpnT7heMIOUBVZA gcRCvvkkvChET6QMN4R SzZPNL19ObQuABA8BOk PB6HCnFO7Plm3JKc5lV tcZmxkcnNsdCBcJzFjf H4NBIbfDpumcBZ0LEqw QqrvfE6rdMGRKEMHYwd YAhujahEdQU8GGG8DQN 8LuFYzXMZ2uZD6DWUTE puatQP0hBO0xD84XQWo TJMpsCQbZApzC328SNW uQYchVIMvSrY6UYXvuO GqQCR6CI5byRpbKHRuT 6KzY5EfwmL0PVUmhl5= Biomarker Block(s) (test i4mvaCSlUMWxpBL1ATQ code = 9841) tXFMfe2ffp8AzeXAaiZ CnDFqcjUTkbqCget56a TD1fU46FR1hAIJjHfD3 DRXnwhW4Qkt6NHHzMPS onAZeX695j2qzh4mbpl FhkSZ5nRpiPJRduiryH rZ5XQluFMUqosziNKo1 ANclUSMhtTO0CXTrsBI lC9JyDBKtTR0ghgp3UT Q7KIzaWQAnZjS4KGYig LLiPOJadDnvBDimw115 CFM2BoSwZYZmkwOoxLj urR8jQuXzWNBSCUetIJ J9 Disclaimer (test code = k4jtaBAoRCAbbQTzEwM 9844) vYIDvQFIol9fyDZShtP FuZzEwMzNcZnRuYmpcd BMnDWGaSkFxx0prw248 dJBby3uqVSOgHwV8gSM cPSEwsXAmQ413LQYeLI sim8mxq6RsCOMkqOAui 7Y2BJXOaayssVu9jOrq Y55mu9Q1YgwuG3cmNXX oEMRbS9SdLI2nRZXvXp m6XST7IPZ2PNSgNKMqN 0QaRD2wRWDogYEdZMg8 n0rpyMqsSHYnJYT3t7v dETyjssTcHE8rhx6tmN s0w2ibcoUzNIBlRSLxa WOSBFEaA0JaiHtfVd6o nLz8yTbsQiupZWU1Dqv 4YF4aqy74nke9wAfdAQ GpfgykGuO8DAatGUUnj loxGYd4UGviIRSmyIN5 ACUvvBSuU9UeUTUwYN0 vjpk0ENG7ROjwUSKaSd S4RFAyoXGqZGSnzKqpG Sucy229MCE2DaAaBM0n Z4Qlg6D1lI5zgBGmOCR xoUXqPlOyQVOthv9maN YrHCsbs2CaDTR3qaB9y WCjnRWrHTJeFQ26Zgna o5VzKcriFLG7MDCvwmJ mi5Zej0hxKiVdlmGzD4 hlR0YdCMQcTJOnKAGfY cXwdqNbk6Mrq8EmvQSr cUr1i3ytCXYlMAMqjIv mn0jsDUX6SJOdP2W2uF Aha7wpKFwrRMWwxNW8j eT4AESqaEYkD3HcxR1s PTEiLG3cyww1q0pjEWE 5XPecNDWfMqW4hhB8IQ BcaGVhZGVyeTcyMFxmb 196JTV1EsNtVNElp8Ab L3XwcRlbH78ycSgcK26 mFEFkeYqyrO8ckUvtoY 5cZjBcZnMyNFxxbFxwb HFazwbqBWxojjV5XRno ivxrIIXrWSgvS0pjGyZ wIXUikIoqOCuss9BdXM HhRVMlJlwvttO6ZWPAm 27rDKNol9GpISWxzV0o nRLlXNmrhlXvqQW8XHb hdmUgYmVlbiBkZXZlbG 2gLZFiSR4wYNSovnJcw r2yduFgIWPaHLEeP9Ge cmlzdGljcyBkZXRlcm1 caaGlAQD1SYMJFN0HUH XqMXPbl96cWWBrlBtcb N5edPIdmnJjDGTlo6Ms tI4urVBJLKTrO2deXR6 cYLthb1GruPDnrDJccI L5OVSbl1VjWeQhdnAmb MWbiVXwQ5UwrOifA5ef IHCaWWBzkeZsjXKwo3J tTFIyxNQ0mSJxWQ7PXv WQx77yPZVmEAFQpvEpX BWzyPrgmGQ4bgM6dC3c LiBJZiBhcHBsaWNhYmx mTDNuc973nj4nzwC2FW WoAAIbulqdg3JxFLLdX RPeiE08CHLwZXDrcu4m bvwzmFEkyoVwT4Pffku 2jX6lVEObVBwzYFCaDL ZzMjJcbGFuZzEwMzNca GljaFxmMVxkYmNoXGYx MTtrL4omEkIcNeRmJgi wYXJ9 [facility]- Asymptomatic [id number] 02:39:59 Test Item Value Reference Range Interpretation Comments COVID19 (SARS Not Detected Not Detected CoV-2) Result (test code = ____[place] a 37179-9) qualitative reverse-transcr iptase polymerase brian n reaction [...] patients provid ed by the manufacture r ([employer]) c an be reviewed at:https://www. fda.go v/media/479803/ downlo ad. A fact shee t for Health Care pro viders is provided by the tower crane operator ([employer]) and can be reviewed at: https://www.fda .gov/m edia/258478/yovani nload Results must be interpreted wit hin [...] were verified by the Microbiology Laboratory at [facility], CLIA Accreditation # : [id number] and CAP Accreditation # : [id number]. COVID19 SARS MEDICAL PARASITOLOGIST Swab Source (test code = 10726) COVID19 SARS Pre-OR Procedure Indication (test code = 98960) [facility]- Asymptomatic [id number] 02:39:59 Test Item Value Reference Range Interpretation Comments COVID19 (SARS Not Detected Not Detected CoV-2) Result (test code = ____[place] i s a 58161-7) qualitative reverse-transcr iptase polymerase brian n reaction [...] patients provid ed by the manufacture r ([employer]) c an be reviewed at:https://www. fda.go v/media/775738/ downlo ad. A fact shee t for Health Care pro viders is provided by the tower crane operator ([employer]) and can be reviewed at: https://www.fda .gov/m edia/045533/yovani nload Results must be interpreted wit hin [...] were verified by the Microbiology Laboratory at [facility], CLIA Accreditation # : [id number] and CAP Accreditation # : [id number]. COVID19 SARS MEDICAL PARASITOLOGIST Swab Source (test code = 52670) COVID19 SARS Pre-OR Procedure Indication (test code = 58459) [facility] [id number] 12:53:10 Test Item Value Reference Range Interpretation Comments POC Crea (test code 1.2 mg/dL 0.6-1.3 Medicati ons, = 91854-0) especially hydroxyurea or supplements, cyr ch as [...] which contains microfabricated sensors, a calibration frantz [employer], fluidics system , and a waste chamber . Each test cartridge contains chemic ally sensitive biose nsors on a [employer] ip that are config ured to perform spec ific tests. The microfabricated sensors measure analyte concent ration by an electroch emical assay. POC eGFR-AA (test 64 See_Comment Normal eGF R >= 60 code = 28300-2) mL/min/1.73 m2 The eGFR is calcula cliff [...] dialysi s) [Automated mess age] The system [email or web address] generated this result transmitted ref erence range: >=60 mL/min/1.73 m2. The reference range was not used to int erpret this result as normal/abnormal . POC eGFR-GOLDIE (test 55 See_Comment L Normal eG FR >= 60 code = 25156-6) mL/min/1.73 m2 The eGFR is calcula cliff [...] dialysi s) [Automated mess age] The system whic h generated this result transmitted ref erence range: >=60 mL/min/1.73 m2. The reference range was not used to int erpret this result as normal/abnormal . POC Clean Dev (test Yes code = 6672) Performing Lab (test LUDA Ashish [facility] code = 85695) [facility] ,[address], [place] [address], Point of Care Lab Dir chrissy: Kandace Taylor MD Lab Interpretation Abnormal (test code = 92594-8) [facility] [id number] 12:53:10 Test Item Value Reference Range Interpretation Comments POC Crea (test code 1.2 mg/dL 0.6-1.3 Medicati ons, = 58813-7) especially hydroxyurea or supplements, cyr ch as [...] chemic ally sensitive biose nsors on a [employer] ip that are config ured to perform spec ific tests. The microfabricated sensors measure analyte concent ration by an electroch emical assay. POC eGFR-AA (test 64 See_Comment Normal eGF R >= 60 code = 53007-4) mL/min/1.73 m2 The eGFR is calcula cliff [...] dialysi s) [Automated mess age] The system [email or web address] generated this result transmitted ref erence range: >=60 mL/min/1.73 m2. The reference range was not used to int erpret this result as normal/abnormal . POC eGFR-GOLDIE (test 55 See_Comment L Normal eG FR >= 60 code = 36315-3) mL/min/1.73 m2 The eGFR is calcula cliff [...] dialysi s) [Automated mess age] The system [email or web address] generated this result transmitted ref erence range: >=60 mL/min/1.73 m2. The reference range was not used to int erpret this result as normal/abnormal . POC Clean Dev (test Yes code = 6672) Performing Lab (test [facility] code = 41792) [facility] ,[address], [place] [address], Point of Care Lab Dir chrissy: Kandace Taylor MD Lab Interpretation Abnormal (test code = 43580-4) [facility] (CONNER-CoV-2) PCR [id number] 02:44:22 Test Item Value Reference Interpretation Comments Range COVID19 SARS Pre-OR Procedure Indication (test code = 86613) COVID19 SARS Result Not Detected Not Detected (test code = 69705-9) COVID19 SARS SARS-CoV-2 NOT Detected. Interpretation (test Reference Range: Not code = 67651) Detected Methodology: The [employer] RealTime SARS-CoV-2 assay is a qualitative real-time reverse armature tester polymerase chain reaction (magnetic prospecting operator-PCR) test to detect RNA from SARS-CoV-2 in nasal, nasopharyngeal and oropharyngeal swabs from patients with signs and symptoms of infection who are suspected of COVID-19 by their health care provider. The P[employer] RealTime SARS-CoV-2 performed on the Insights000 System is a dual target assay with [...] CLIA-certified, high-complexity Molecular Diagnostics Laboratory (MDL) at [facility] under the Food and Drug Administration (FDA) s Emergency Use Authorization. Factsheet for patients: https://www.mdanderson.org/ AbbottFactSheetPatientsFact sheet for healthcare providers: https://www.mdanderson.org/ AbbottFactSheetHCP Test performed by:The [facility] Molecular Diagnostic [address] [place], [place] [id number] [place], [place] [address]MD COVID-19 (CONNER-CoV-2) PCR Pyhwljqypkhj2513-43-96 02:44:22 Test Item Value Reference Interpretation Comments Range COVID19 SARS Pre-OR Procedure Indication (test code = 52602) COVID19 SARS Result Not Detected Not Detected (test code = 72479-2) COVID19 SARS SARS-CoV-2 NOT Detected. Interpretation (test Reference Range: Not code = 94456) Detected Methodology: The Pae[employer] RealTime SARS-CoV-2 assay is a qualitative real-time reverse armature tester polymerase chain reaction (magnetic prospecting operator-PCR) test to detect RNA from SARS-CoV-2 in nasal, nasopharyngeal and oropharyngeal swabs from patients with signs and symptoms of infection who are suspected of COVID-19 by their health care provider. The P[employer] RealTime SARS-CoV-2 performed on the Insights000 System is a dual target assay with [...] CLIA-certified, high-complexity Molecular Diagnostics Laboratory (MDL) at [facility] under the Food and Drug Administration (FDA) s Emergency Use Authorization. Factsheet for patients: https://www.mdanderson.org/ AbbottFactSheetPatientsFact sheet for healthcare providers: https://www.mdanderson.org/ AbbottFactSheetHCP Test performed by:The [facility] [address] [place] [address] [facility]32022[facility] 16:00:13 Test Item Value Reference Range Interpretation Comments T3 Total (test code = 3053-6) 76 ng/dL 80-200 L Lab Interpretation (test code = Abnormal 19625-1) [facility] 16:00:13 Test Item Value Reference Range Interpretation Comments T3 Total (test code = 3053-6) 76 ng/dL 80-200 L Lab Interpretation (test code = Abnormal 49039-8) [facility] Cuej0361-23-84 15:45:18 Test Item Value Reference Range Interpretation Comments Uric Acid (test code = 3084-1) 5.7 mg/dL 3.4-7.0 [facility] [id number] 15:45:18 Test Item Value Reference Range Interpretation Comments Uric Acid (test code = 3084-1) 5.7 mg/dL 3.4-7.0 [facility] Bi[facility] Interpretation 2021-10-02 18:54:46 Test Item Value Reference Range Interpretation Comments Submitted Clinical History q5ulkIHiRBEny2dzCMQ (test code = 28730) mbGFuZzEwMzNcZnRuYm pcdWMxIHtccnRmMVxzc 8KcU7SwOaExDOmykoZo XGRlZmxhbmcxMDMzXGZ 0bmJqXHVjMVxkZWZmMH fhLy8bvTFnpJlfBzWwY EIqt0msffVTqbnyxCi9 y8jxWZKmPkR5aDNdYXm vS2jssaAqwSUnGAMgBX c3kW18JLKyhD4ujRVzH XttggSiKhO2LVqgJVDg QyY9FWXetABlLDRuV0g yZWQwXGdyZWVuMFxibH XlMDN4dSrqc6Y7aXIwn GVldHtcZjBcZnMyMiBO t6OxYEh4uAziQ2NtXYL wTcX7jAFzISJkKUijIM SrYCSnyvN9tB64VHsvh eE9uMVio7Rri84kb659 kK9nsBVyZJQ4HYNzFRH rcIBoQUDkRAV1NUHegI FgA6iqHSOhMY2xldrsW MzoAWwnSWRlhMX2FEUs xKDjP9GfOHKlAXtfIKU ihrj1EdYlEj4oiBPulH klLZilu5ywk7vvsTTpL rc6WHSwFvByTxneWBat b9Gln5qyGFYsqg1rYSR 0hFRjqCxew0X8yKTgYW LmfENjezFzIHZiKxA8R ZsvFE8tqg47FPSwCJL1 lj0omFQqpMohtaGsbMR fHJgwL5NkEICgu988MN WmO9WcHLFvj2V6cvYvP oVcFHPpeQD6pxQ7LDXf MVp8dJAxgoX0grUtxXY qE2hzyC2lVTXsBK9vga rbe6uvUZpsHAfdBUOlp IJ3ffE6XJWeoUOhE9Xo kR7tTZNfNNzdMQGvqiw 5PeOxXg9yiXJwwScrBC xzYmtwYWdlXHBnbmNvb nRccGduZGVjXHBsYWlu XHBsYWluXGYwXGZzMjR otRggoBoxyR6qIiNjGk KwPSsmXD1pGKMzK4uua CVfBITuUPKxA8ltKcLq pL9yyQwoKKpfruNeVGD ie3GbRGPgtAgpQ2ZfG8 azp48wVB8jJUPyfQZqv N6zHGGfBNU2GIwHVJUb YBS3RXapMNTmDhSeUMa eH3ZzqBQbSRFimB3zlQ Szk4LpFaOqckPeZgW0Q fMjXG9wkQlicO4bHyBu HpQzChdqDO7bTOPbE7d slJCjEYAtLLRoQ5joAu DirT7uvJcqSPgbtjRnS HBhcn19 Diagnosis (test code = 34) i2qlyCVyIUSjhPM6AnI tNJByw8lel0PusMPzpA ElPGxafEKkxrRvzn10u AG5dJ35CY0aOTKyVgS8 IKTlqsU0Lqa5KTJzVLI btPNcU239i9ric3ijuu SdjXQ8DRMqWXPuK8HpG R9zFCDizJJkA41hkGAc VSJ5MUQpIHWtiSDiRRO dXKJ2NHXgiOKlP9skYE CzHC3jgrdwXMypXVkrE SWedQE5HMBemGQuM5Rk BYMgKSgwYYMficg1MaV rFy8emWLrtTmwDZbuAC JkXHBsYWluXGZzMjBcY 0FiCNO7PYCjoG9pGWVv I1w6BPOyORB0ASOkdTr tpJRlKmjoJIUxoSh6Sl BcbGluNzIwXGNmMCBTa 2luIGFuZCBzdWJjdXRp ljI7wYWwDLdlHXcgsxj tn3KpZ0dcVUjxn376el Djc1Izmj7czAUpWTOIP 3GYUQVFWZbjQ1RHR8oY V52RRXWKJ6VHYKKVHWZ RKXBITHODWvAMZ6iFNR BQQVRURVJOUywgUElHT UVOVEVELCBJTktFRCBN LNYHVK4LKMINPCKFYdB HAgntiJ7fCAByH3kyyk 81yhDdTFW7cD6kCeDdn QDuL1NwBUYvTWWzg5pr wTS2fSx1gHGlNVlpNEE kA4BgGSJolV3ccdXiBR xwYXJcbGkwXGxpbjBcc HCmCVYzNVTXHmMGv9ii AUFyXA22tcApDBPcY6n lOHKbyUtaw2H9IBQdtg htkEhcRKlmoE76KzJsB 7PnIHZpdQ3zPY1eYEQ9 UoN2gIlkKMpdzRbwxHM hbGluZyBzdXJnaWNhbC C2y7MmKZ7uN7AoHiklG RBoNvLSWCazY6TCNJXF ULZPLX7BQFKhNPKUDLS SRklDSUFMIEFORCBFQV PJKZGUL3RXKQTWRMHLG YZZQe7UFTQXIVBIBS1M IEFSRSBGUkVFLlxsaW5 qKVUhEtI9r2WbUuRnt8 djl4TdNKRuN9TpaifyT DPjOA1aXAVvMM0kQBQs aMdlT5WbsESnsf5dvJd yLXOFMPNbU40cuQBqnS 5ccGFyfQ== Comment (test code = 9835) u6zzkQQfOEHtcCH8UlQ oYZWid8yrg7NtyZHjkI RgJXzxaMDnaaXqpc90v EZ7wC44NI1zITYlYsA5 VDAtzqS4Mxc3HEFvHOC auAChF909i3okg7whwa WepDT7oDzlTRGtbaymG mT5JTauRWVnntpuCLd3 MUviCXLyqYH8BUZxtEK rH6NdNRIfGR4nspo8HY Z6EAymVMOdDxR5SSCjv VZkQHZhvZkiXXjjw374 LNB3HgDrKXVbooGyiAf ocE0lUqNhLADUGEYuYv ogTXVsdGlwbGUgYWRka QVbk53gfSEwJJWfCBDi bTxcs8DwWJCjU8Oql93 zIGhhdmUgYmVlbiBjdX WuLG7lLMB6RD2sbqGqJ iAgXHBhcn0= Gross Description (test w2ardNZwSBWjfOGNWNw code = [id number]) wMFxhbnNpXHNwbHRwZ3 MhnydtEDmaJW1kBE2en BhslITkeXNgCI9DDRJn ZmYxXHBhcGVydzEyMjQ yHEThyIHiwDH0NDQdXN 1hcmdsMTgwMFxtYXJnc eC7RHQxuGUkP2JnKXYi FY3yajnuGLM3JUxpvZ0 djwFASvbcOq1efXHazP tcZjFcZmNoYXJzZXQwX MMdvOcmASZhHFd2gV3P DphkM02qb7A7Vbf7ISD vPSNmF2WkTL7bRKAfjZ GiU88SOonkPCX5PINCL unlOYCjCK0Ny0swOKPg kEZjRYJ8GYgzbWEqSRV qAYYzTQx7LIBzDLjslR HeVU2pcGspIplipAviw 2VjdCBcXGlkIDUxMDAy OChvQHHxRD3WCeHpYRS lXKB7LNYoYAh0XHs0HL 7GDzAmDRSwAZx9PABtJ sDjCUg5HGqaIH9ZPNcv GLL6OVWrNjL8WBKmUgA cXHQgMiBcXGYgQXJpYW wgXFxmcyAxMCBcXGZiI JzaJuyoUCimJ44gaEvv eG8xOznqgsEvHQE4JZU hciANClxwbGFpblxlcG ljTmVzdERvYzEgDQpcb HRycGFyXGxpbjBccmlu MCANClxsdHJjaFxiXGN oGXcvwpLzZIZamY4uDB YmQ3r0QCJuRGL0YqsaW FxjZjAgIEEgdGFuLCBo YWlyYmVhcmluZywgaXJ vUXw3lPApQPCbiC4mUD uebKTav87qrUIyv7Cac R8mRVCuNxX0FWNeJnNw bSBhbmQgZXhjaXNlZCB 0byBhIGRlcHRoIDAuOS FaiO6iVGImQFHrOAwcW LSvb5H8pZIlXCV0sGRx gIZaMNE5NBKbqMcpTIl pdGhvdXQgZGVzaWduYX Eve68iAU9uWAwkeFfzW mUgYXNzaWduZWQgYXQg pNwaRZPbYG6yN7ufR6e iiD2jtRGee98zSPEMoU Sbn1OoF9mqJP8sqDShr 8PgmBCjvByni3YzmXft bmVkLCBlbnRpcmVseSB kqILeqFZ2VKJru1InpN HbxVppoZn1KMkfQSUhB OB0ZbOCCXjmUNCvJSnR IkodC85NFHkvFrSuyTJ fRn8dGHNvahqnuF5xdb mzJgg5HXjsYvTpeHH8K VrhHUKdxvjgqA4ybhwx r7QbyzrwHRNhktTCFeT ZP8GVK68cT45AFYvpWN EsIDEyOjAwIHRpcCwga O3zFMOoVXJtbJO7MSVj LUEzLCAxMjowMCBoYWx mLCAyIHBpZWNlcyBlYW FfQaGJHR2NRQkgWmokT CBoYWxmLCAyIHBpZWNl cyBlYWNoOyBBNiwgNjo jSJF1zPYpOLtyxtBboN QkVIXgEv7KSRZcpUOXJ MK4YX1eMIg5HQnkKWFh Z4YrB7VyooTrvUFxRRC gnkAos6joCYH0AXIxlK AfuVYkWtDpKyodPMW7O SGnYSheBW8Aa9izTGSu mKDyRVM3EQbzgVYrSEO cDOUgGZjxWqMiK5KKJO AqIyCkZjmcGJUkTZp0Y QxbD9VKZABbKQK1COq8 ZKH3EwR9YYf1TTKCLu2 mPTE4XuA2MSA3RBS1EC V4OIlliPDdCUebIsJGb mlhbCBcXGZzIDEwIFxc JxIgFVhhxTWbWS6gzYl wbGFpblxiXGZzMjAgQj wltOXoDN4LMUKaQKiyM MVmxWWTACW1UI7vKWVC ClxsdHJwYXJcbGluMFx ooP2lXX2DJMp6ikRvZA SxW5GqJIIrDhNjR8gtf xgpS9ZfbGEiyQHuSFXx OlxiMFxjZjAgIEEgdGF uLCBoYWlyYmVhcmluZy syjQ7pnwlcicBzOGTzl 7jaHNV0T2nudN1wGL5k BSE7rizxXaRjMnkabVN wUawmN91eUC7vLMJ7Z0 jsWARhtJ6idBafDBKjB wZdiP3bIMHhHVDbMImb BWAyqwSxCGIbcywtI1N hxIHvrHFvUWYqa08erA Oha0ZonB5dKJTxTDX7J QUwUcUxxZL2aVrdjEQf mnCaPsmvI05kxZ9kuMs uNFLys6Bxh2ZoySEaF6 kgYyKuBCfkTW9hcgtku rYiFQVdOGfcc2WoRRJa VRVeZBhmeRYaCXP7dK2 yYVCtXTUspOwmLBl7FO G9Jr6tpUScSTXpajEOY U7AQj1hSQFraXGhAQ6X T8KANDfNKvZVJ0THDqW OPWhdxWfvsspssM1rWX UyFWHsdKE1CFQtXPT2V CgzIHBpZWNlcyBlYWNo KSBhbmQgQjYgKDIgcGl oI6TgVKtzviXuNUxcVS SnNDxaPOZqX11he3RKr 5RaHVKdg5txuLxyn6Xu dGVuZFxwYXJccGFyZFx tiZ6dEaRbc6qvdMu2MJ orbtE7BKQlln9hrPuym W2bNKgbi5hzMDR9EKZj bXVsdDAgDQpccGxhaW5 jLjHdTta5QFwiWYRvC0 KqK1LtuwW8UEKnIOgdQ GZzMTYgDQp9 Disclaimer (test code = v7ybwJRoLDLxuCIgIlU 9844) pPCOtZGWmg7sdSVXpxU FuZzEwMzNcZnRuYmpcd IStMOGgIdRne3buy655 lONtu2meVTGwJnM3mGG tEJKnqQIzI939XKGsFX ita9xxj0JgZYJcqZYok 2V2IRAIhkctgAf0pEoe X13fw5W9CxcmC9frXQP oWFQbG4MySG3lYLEwOm g9ZJP6HXR3BMXuEJAvJ 1YbRZ6gDXFspYZwUBf3 b2ptbChsHNMqGFL9o3b iJUdcmwNoRS8vmk0xsL p1m5tjmiMlAAVyVUHnl MYGPCNqJ9ZhyLiuYl3f lFr7gThaAnkjBFF9Mdl 0IP5rxx98prs1lYxgVL EehkkxLvP0HPugORRdv safYTl7BIqxDJTmaKX7 MUZgfUSuV6SzQDScTY9 qqwn5UAX3ZAngNMDlEk H4NDOstOTxDCWqtVffH Xbyz487RUV1AiTjAS0h C3Ryr5T8eQ5duKLrCHN wyJTiFbSsIEJwes2irM HtWXlym0TsCDY7dhK4d WSaxFRvEMGeLY44Igtc r3CzDljvYEA7BWWbdyC cd7Ixe8owGgBkfrStL8 kfG8MwZSNmHGWpABZtS cFdhjEjm0Hho9HigEMg aSg0k2bxDOAgAYTkvVo jf8geDXH1OJMvD5E1mL Bib2xmSMhuLHNukRN5y vU6ZQKhaNAsM9GnfN3g GPIaBS2xgft6e5zeGMM 1TKtfHLFwRxX1qxM5WH BcaGVhZGVyeTcyMFxmb 175ERH5TtRyTBOri9Uw O3EagMejF86kyUwcW31 lINJasPwswC1biClriM 5cZjBcZnMyNFxxbFxwb IUokxxmLWyubgK9OZnm prjtUJYeOYmdJ4jvRmL cQMUpeDdeDPidd0FvOP RtASBdJzghpgL4JVTSy 03dGLBux4EiBSCfcU3o dKUoTAjubwRzjKF9RCb hdmUgYmVlbiBkZXZlbG 6oBFFzKL6aYFJteuGql k4bwoNxPIGeFJZiN3Ck cmlzdGljcyBkZXRlcm1 osoZxVOH8HLMSTS0IUL XdWYFlo21kLUUxtImve W2wdCAqxoVoQZRct4Oq qA8bzUXPKXVjU9xeDE6 cKAlwx7ZorZAohUAzmF C3PITyc7UqNtAtiuWih EXviKAiX2MhgYpcH0sg KWXpKMUkexFuaNFly5J gXBOkyYU8yVQmNX0TKt HOp73bMLGiZNERvcOmN DUjkYgecTR0jhV2pO8u LiBJZiBhcHBsaWNhYmx qWDQne906ov5rccX9EO DyWLMlgpkbi8LuZVAtV RYmzK03WUWyJWNmkj7k vwghlVFyosAzQ1Pulnx 1vR9fNQEtMRbnMWKvYD ZzMjJcbGFuZzEwMzNca GljaFxmMVxkYmNoXGYx RUbuO0bjCkQaAaFeGar wYXJ9 [facility] Interpretation 2021-10-02 18:54:46 Test Item Value Reference Range Interpretation Comments Submitted Clinical History j2qikEGfPOOuz8chNSX (test code = 58698) mbGFuZzEwMzNcZnRuYm pcdWMxIHtccnRmMVxzc 0WkB1JtQoErWZrqwsDs XGRlZmxhbmcxMDMzXGZ 0bmJqXHVjMVxkZWZmMH hbMl2uoGYdbYbzCmTlS DWrj9sbckKPnwubdLl9 e4siHTAoQiY3eHPuPGm iO5dgveJebPNvTLChMD e3tT93MPGriF4juBYrH AwkmzWbUqH2OXreZGUf QsO2YSRdpKPcYPMaZ2r yZWQwXGdyZWVuMFxibH CoLQD6cZznx6L0zUSea GVldHtcZjBcZnMyMiBO n4RbEPz8fWuzR4NbGMJ bZwU6mRFvSJBdLRuhZR HiJIRggdF8lU99HJudu dV0bTCur0Ivy41zv217 cD9zwBEoZXK7YFIzNFK vfDDsNGVsBXL0SFXflE YcV1asGFQhSO0duotwW VpcBYprEHJhoJM9SDOn aSIgZ7JeQIMtCXzvFTE phpo7PjFhIa6ckJTbgW nhQKrny4ogd9crzJNkT fb4YEDpGnXyAmnmCWsi h1Yks1tfVCYwfh8lOCA 9kLRyoWpsf0X2bFFfNP PyuJRevzPkMNMkRgL3P GbyFD7gwf29DYStCKU6 iv5xgLKanCnunzSkfJU aZRoiE7QxXMCpy389BL GnF8HoESEvi0B5hzCwG nOnTUAyzZS9fwU1YJHr OQx7gWDrmzX1joYjlVP bT6wbxJ2dADGeAE6rzr sop0efVFrzVVkrPIOjt TL7cwW0VLMxtWLaS5Or wT1rSRWcRByqWRJqaav 3OhWfKy1qoJJrlDoaZK xzYmtwYWdlXHBnbmNvb nRccGduZGVjXHBsYWlu XHBsYWluXGYwXGZzMjR tyKrtbGhhaG5xQkLuUc QtQAqqYE6gRAQpP1afs PGiFEVwPTEgV5aoSzLr lP6lzRwjXMjklqVlUOI fp7EfAFZceDauV2FsD6 xuo13aQE9fCIGotZJey W8dNHUmNKQ1MCnLJCBi CDE5BQfhAUCgLzEpUWt rL7TbqZXpBDYyyW6umG Cue3SaItVzbrWeFxY9C lYtAS4klRyjsC8lUjTu KdVpTctiJH3nBPJuO4n ngMOoHQKnYMKtB8qfGb QpsP9bvNfsQHpkebAjZ HBhcn19 Diagnosis (test code = 34) c5zqzEYfKZWymWI4WdU dJUKmx0dvu3BrvYEmzC IlUXhdmQYntqIzdh26k BC3xB43HT9zEKJrJrA4 EQJygbH0Tux5ROTtCJC wuONlT456d9buh6jubl RxuIX3JBQiJQTjP8IxD T6vJOZnpFLaF71xfDRc LDQ8TDDkOONjxUDsLHW nLAS6EGAnkTYlY4weUV EqUZ7xklaoZZmcAHjoW MEpcGW1HWOupEHrZ1Ew SCXrLEmnLSJdyiz5PiH fSx2tfQZtqEflPGnmNW JkXHBsYWluXGZzMjBcY 7VnKZO0VXFkfM2sRMIu G3i9CISsUPD0DBNfrCg dsMAsTnvnVJLewSc7Ng BcbGluNzIwXGNmMCBTa 2luIGFuZCBzdWJjdXRp yjJ6pHXaONriCVqqpkm bz7CqM5upEBgih341vn Qde3Smag7aaICcXYDBB 5PXWZLXXNcjR2QMX3cY X09BXXNMV1FFCNHHMWB OUIJHKBHQLvZNT2gYJN BQQVRURVJOUywgUElHT UVOVEVELCBJTktFRCBN IHRETE2WDAYLTYMKJxA WVgrqpH1dWDDeT7grqo 06adSdJJO4jJ7nOpAog LGwX7CzJKXcCXKub2qz hZB0cWs9mNYfNVqhKPE mU3PuMCDzzO3hjeIeQE xwYXJcbGkwXGxpbjBcc LKqYQTxYNZSWwPZq0xh WOAnXW34iwTgYMQuA3r iPNTvvPsdr0Y0HQJmcz epyPjmRUggwI44NjXvT 7SbJYMxcZ8qBR1lRHJ1 GeN9kQpwQFzqmEelhWB hbGluZyBzdXJnaWNhbC U9k8QuPZ6nN7RwOjdaX NRoNeSZZYuiE2URFETC OJFCCI7KNAHeRPHRQVB SRklDSUFMIEFORCBFQV MAIXBMS4OZMGUVZJOHW UIDPs4TLTYSIZVZWK4L IEFSRSBGUkVFLlxsaW5 iZJPwAxK8y7EvEzNvu0 oyi1VaTFPzB4CwbxgcF NTiXE3wSFDbQN1fMTIg yUmtS5QryJOmvy1hfZr fSJNKSYGtQ26fyPOhdB 5ccGFyfQ== Comment (test code = 9835) r5gbyCKyKWFpiTT2IbZ kBMTgq0ghf8OucWFrnF NaRNzccGKqegDyvu01i FW3kP33GA6cKHVaYuO7 VOYkrhF6Qqu4CTYiBCC iqIVxQ966j8hno4mjrp SilRX7aEftXHVityzwH xZ0LNdoMAGbexxqREt8 HGrrCRMqnSA8TOUezWP rM9IeDRHkMM6yjtg8QT B6AVyxSZQxZrR9KCAms HHhHQPjoMbyXRwxy643 LNB6AhAaXUDyhxQauAr umT6dNvLoOSAITSMjXx ogTXVsdGlwbGUgYWRka VCwv71wkAHmDAAhWVEz jIrhp2BsYACaT0Fzh19 zIGhhdmUgYmVlbiBjdX ElFL3fNUW4XU2xhiIlH iAgXHBhcn0= Gross Description (test r9tvuWXzTLDhfPMKDVi code = [id number]) wMFxhbnNpXHNwbHRwZ3 QrbytkKNopVP5fJD5po QugcSUsiCZaBT5KXKZw ZmYxXHBhcGVydzEyMjQ sUOPdhHTjaHD2YHJfUJ 1hcmdsMTgwMFxtYXJnc yC9ILWevJKlJ0RfSSAm KX0mlvkjAAP4CBodyB6 kywWFCyzwBy8hvZLypZ tcZjFcZmNoYXJzZXQwX POqiCvdIPAyQIq3aN3H McfkA07zz4I9Xsu4AMS pAYHaH6JpVX9xQVEviL KjH01HHpebHIR6CQAON dqxMWIqUX0Bz9onSRQk zRWpUDG9WBaazIOzMXF cBQMtMTn5ORWgKYqyuW JsOE4vfOneByrvrQhkd 2VjdCBcXGlkIDUxMDAy KKdcFMIxFZ5EXjSvODT pEIC9KUViKJi2RKd8AM 4EDuBzSXDeDWu2WNXsE cFzUHo3TYyfJO5WBUgy GRM7BKFtGvW7PBVbZmS cXHQgMiBcXGYgQXJpYW wgXFxmcyAxMCBcXGZiI OexNaxlDJbdM11vaCrs oW6uSofghxQcBVN9ACN hciANClxwbGFpblxlcG ljTmVzdERvYzEgDQpcb HRycGFyXGxpbjBccmlu MCANClxsdHJjaFxiXGN wXXuodqMuRCChfZ8iFB RsT3q1ECQuZWB6QqexC FxjZjAgIEEgdGFuLCBo YWlyYmVhcmluZywgaXJ yVTz0zSQgWXEzrR8vUU vmlFVll40rrNTbc4Bhn B1eQUKtXjH6JWGnDwIm bSBhbmQgZXhjaXNlZCB 0byBhIGRlcHRoIDAuOS UwfZ9tKVAdRNXnIUbsU KIsi5Y6sRUtJTX0hCKr vTWbPMM9KHBgbBlmVUu pdGhvdXQgZGVzaWduYX Dls74kHK0wIMdibLcbU mUgYXNzaWduZWQgYXQg sIxxYOAmFG8zD4ibH3l sqA1hwFAca20fOUXKqX Ruj4IkP4wjET2xeTAaz 7YlzYMinCwug2KanTky bmVkLCBlbnRpcmVseSB nlSVkpDT9CBEhz4OddS OvzVcedKx8YCdgHWLoC QB7UgFUHGzmPMImQOaC ZrqrJ39STRtwOnEkzOC cQl8lPGSdueezbL2cun ckOml6VWjvVbMtfHL7S BhfIZTjinpxnO2uyzso d8DfvbwzEOYzpqLQEtO AT8CYA54gZ95GWXpnZY EsIDEyOjAwIHRpcCwga G7iVXAbHCOzuDJ1WUYe LUEzLCAxMjowMCBoYWx mLCAyIHBpZWNlcyBlYW HyHgWAQR0FIOpxZkmyS CBoYWxmLCAyIHBpZWNl cyBlYWNoOyBBNiwgNjo eEQJ4xFDvWSectiIzhZ LbLSObGh0KKPNfvWFUJ YQ7WT5uYVq0LMbhEVUv M3ZtI3OdjoCfrGXuZCU rqcEaw3lzNMU7LNGgrH KlhYCbLxGwJwqdEHS2I DMyQJwyMU4Go2eoKNEu kZSaPSM5PJuilDYxMOR wZZNjZClxIwLeG0PVEC ZyMlSaNbpwJKBeLWw7W MzkS0NEADNjRCD5QIn9 FYL5JfV6MTi3SGLOBt4 aIMH9BuZ0RAF8ZYG3OX G1APadiCNyVWthIpQNm mlhbCBcXGZzIDEwIFxc LkHxUQcnxHKmXN7tpWu wbGFpblxiXGZzMjAgQj bybWWkUI4WVWOkEHtwX VSvcUBMMKR2GN2sVSEZ ClxsdHJwYXJcbGluMFx plI1nDQ9NOPn3ytWmIF FkZ7LfTRAfRtAoD1yjy zueD8JmmDOdgKUbUGLf OlxiMFxjZjAgIEEgdGF uLCBoYWlyYmVhcmluZy nwiR0holsobdTgNCJou 5jlBYS0A9wwdL6zBT4v LCS1xcszFaAuKufulWA oKquaL00aAH2gXYR6C3 iwSDMtdK8dcDufGDFxN lKnsQ4iDLYrBOXzPUjf RURkqkOyPDNgfxfuA0A srXGnhUQmTEWkt36laV Hhx9OjhA9dFFXrXPX9Z TMmNzYxjGM2iRuqwRRh svUlDhvxJ57ykZ7otGh mBGHzy5Iqa7QbhPLjE6 woEbXwHAmuIM6hvwewi wPxDSOyDEaba2LkWGYu SQLmHUvxfYPjLFF9eQ4 jGKIkWRIghSxtVXh0LP A1Er6rwTDmECRuqeTKV W2YWx0aBAAldXDnXL1S V1HZDJqSHbRMQ5LCLgB DPRmolTzrvtzlmD0sUG LyGCLefAP8XSGbMGC7L CgzIHBpZWNlcyBlYWNo KSBhbmQgQjYgKDIgcGl iB1ZtIXuzveRlNNqvIE VnVNohTNDsY09jk1SDm 4YdMEBkg3ttyGxri5Ic dGVuZFxwYXJccGFyZFx ugT2qYxDtx9gfyTa4GK uuotN2OHRwku3pyGgau H9uKKnup8xtSIN9XWBj bXVsdDAgDQpccGxhaW5 kUnBpDsp8EMaiNUSdY2 PnG9ZkkvQ9WVIgWGulJ GZzMTYgDQp9 Disclaimer (test code = [id number] [id number]) xUBDqZYLhy9fqYHPstB FuZzEwMzNcZnRuYmpcd MAnLBKdOyBlx8ndp399 xQYrx0uaZLDuBtR3vPC uXUIppDDgY373AECiGY vjl8lqe0YbPWDqlOXfm 3R7SLCUwzecaTa5wCwx Y14xe6O0YnbgB5ccPPO dMYIpP3JfBD2jMSZjEu k4IJZ3OEP8SLHwRDThT 6AfPW6nYMYibWTtWEg3 t3njkChdTWKfCAA9e4m sIBalqmRkCB5zlj5uaK l9r7xxlxEoSXZjOSCrp NHMYTNgN6BhdPpwUx4e fHu7gJweTpexBNX5Dcj 0TO1qsx41tat1qConKL GgflzrJhW6LFbpTBLrd simCMz2APxkPVZupVW7 WPCttZUiD0YaIUQrQH6 gybr3LXP5EAgeENYiBq R4OGClwNWkNGEgoHyfP Mxrf941KZF9KdQgNL0s F6Lii8S3fM2duKAfLTR opLWbNhJxVMWpxo6yqA ZyKXzjh9YzULV7nmH9f BTzyNWiDKNqPP70Mctb c5RtEoypIWN6UJZtktM xj3Vbl1swRqZiowXfX6 avI3MpIFDhYHLrZNBsB yLjpeBwc0Qql4SmtUSf lTo4q1aeCRBpWXJuvWr wo4weBWM4OGWnG5N9nY Hwa3mkNUprWCWovWL0c hO3OVWimYKbC4WajS6u BTVtRP0crbi1a8biQRI 8OTnlSFVeCjR7jzX8FW BcaGVhZGVyeTcyMFxmb 495XDX9BrXsDBAws3Eo U7GryRxrR49epOljX51 ySEWszPwbkY2cyDeoeF 5cZjBcZnMyNFxxbFxwb NObbfuyCJrtehB0XZnz mzzuPBPgZMqyX5mqTdY vJSVtiVytEHhfs3WlOR JnNCJrQymivzP9IDZKq 62sMWGot4CmISXejJ3f rHTnLNtkeqYswRQ7FGz hdmUgYmVlbiBkZXZlbG 4hZXYkWN4kGJSbteIkk e8tdmKuYATvVVNjI6Km cmlzdGljcyBkZXRlcm1 xpwMuRNS1ODUUUF6AAT PlCPEkw08uPHUyzPzdi F8gbZEvekBaRKRdr2Yz jW7bjWCUWHTaW4qnJM8 pXWykt2JjqDYxrUWnfE L0YAErs5SzDqClstBbs YVkrWMjQ2IplRauE2ih SKUaCPVatfHmwRGat7M qIKCxrBJ4hSPnBV5BDf ERp83wHRRrLHWWreStL BFasTbyfIO0usB0tR1z LiBJZiBhcHBsaWNhYmx lAQCfe254vj4vcxU5GA YwMODonyibk3NwJWRvI FAqyC45EJUcXDMvlh3b srbikDPeibCnA8Olinc 3xY2uRGNsGPpjGVDuRB ZzMjJcbGFuZzEwMzNca GljaFxmMVxkYmNoXGYx UKcuX3puIfPnPoVhZof wYXJ9 [facility]
[2022-06-03 12:20] VITALS: BMI 23.3
[2022-06-03 12:31] VITALS: BP 137/68; TEMP 98
[2022-06-03] MEDS ORDERED: MIDAZOLAM HCL 2 MG/2 ML INJ IV SCH (13:00)
[2022-06-03] MEDS ORDERED: HYDROMORPHONE HCL 2 MG/ML inj IV SCH (13:00)
[2022-06-03 13:35] VITALS: O2SAT 96
== END 2022-06-03 13:38 | disposition expired | DRG 951 ==
LOC: 4TH 11:54
PROVIDERS: ADMIT Internal Medicine; ATTEND Internal Medicine
DX: Z51.5 Encounter for palliative care (principal)
CPT/HCPCS: J1170; J2250